=== PATIENT | male | born 1955 | race Caucasian/White ===

== ENCOUNTER 2020-04-16 11:00 | Outpatient (RCR) | payer MEDICARE, SELFPAY ==
--- NOTE | 2020-04-16 11:49 | MHC.PT.DC ---
[facility] [place] [facility] [place] [facility] [place] Office [address] Phyllis Lauren [address] [phone] F: [phone] F: [phone] F: [phone] F: [phone] Physical Therapy Discharge Report Diagnosis: Vertigo Date of Surgery: NA Date of Evaluation: 02/10/20 Date of Discharge: 04/16/20 Treatments to Date: 18 Cancellations to Date: 0 No Shows to Date: 0 Discharge Status: Pt has improved and is independent with all his exercises. He has noted significant improvements in his balance and his ability to perform ADLS. He has not had any loss of balance over the last few weeks. Pt dicharged to home exercise program for balance and strength. Discharge Summary: 04/16/20- Pt came in with no new complaints. He was able to get on and off his bike and ride 6 miles last week. He did not need help to get on the bike but needed help to get off it due to fatigue. He however reports that he is confident with this activity. Pt has improved and is independent with all exercises. He has achieved all goals set for him. Pt discharged from therapy today. All exercises were reviewed with him. Please sign and return to therapist. Thank you for your referral.
== END 2020-04-26 15:21 | disposition other institution (70) ==
LOC: HO.PT 11:00
PROVIDERS: Visit Provider Internal Medicine
DX: R42 Dizziness and giddiness (principal)
CPT/HCPCS: 97110; 97530

== ENCOUNTER 2020-08-16 08:07 | Outpatient (REF) | payer MEDICARE, SELFPAY ==
[2020-08-16 09:30] LABS: Alanine Aminotransferase 37 U/L (0-40); Albumin Level 4.3 g/dL (3.5-5.0); Alkaline Phosphatase 152 U/L (39-117); Aspartate Amino Transferase 25 U/L (5-37); Bilirubin Direct 0.2 mg/dL (0.0-0.5); Bilirubin Total 0.4 mg/dL (0.0-1.0); Cholesterol 116 mg/dL; Glucose Fasting 146 mg/dL (60-99); HDL Cholesterol 31 mg/dL; LDL Cholesterol Calculated 64 mg/dl; Total Protein 6.8 g/dL (6.5-8.0); Triglycerides 108 mg/dL
[2020-08-16 09:42] LABS: Estimated Average Glucose 140 mg/dL; Hemoglobin A1c % 6.5 %
[2020-08-16 10:22] LABS: Reflex LDLD? No
== END 2020-08-16 08:08 | disposition home or self-care (01) ==
LOC: HO.LAB 08:07
PROVIDERS: Visit Provider Internal Medicine
DX: Z00.00 Encounter for general adult medical examination without abnormal findings (principal); E11.9 Type 2 diabetes mellitus without complications
CPT/HCPCS: 36415; 80061; 80076; 82947; 83036

== ENCOUNTER 2020-11-18 10:06 | Outpatient (REF) | payer MEDICARE, SELFPAY ==
[2020-11-18 11:14] LABS: Alanine Aminotransferase 23 U/L (0-40); Albumin Level 4.2 g/dL (3.5-5.0); Alkaline Phosphatase 154 U/L (39-117); Aspartate Amino Transferase 19 U/L (5-37); Bilirubin Direct 0.2 mg/dL (0.0-0.5); Bilirubin Total 0.4 mg/dL (0.0-1.0); Total Protein 6.7 g/dL (6.5-8.0)
== END 2020-11-18 10:07 | disposition home or self-care (01) ==
LOC: HO.LNP 10:06
PROVIDERS: Visit Provider Internal Medicine
DX: R74.8 Abnormal levels of other serum enzymes (principal)
CPT/HCPCS: 80076

== ENCOUNTER 2021-02-14 11:25 | Outpatient (REF) | payer MEDICARE, SELFPAY ==
[2021-02-14 11:43] LABS: MANUAL DIFF FLAG NO
[2021-02-14 11:46] LABS: Basophils Percent Auto 0.4 % (0-2); Eosinophils Absolute Auto 0.2 X10*3/uL (0.0-0.4); Eosinophils Percent Auto 2.2 % (0-4); Hematocrit 38.9 % (42-52); Hemoglobin 12.3 g/dl (14.0-18.0); Imm Gran Abs Auto 0.03 X10*3/uL (0.00-0.03); Imm Gran Pct Auto 0.3 % (0.0-0.4); Lymphocytes Absolute Auto 3.5 X10*3/uL (1.2-4.9); Lymphocytes Percent Auto 36.3 % (20-40); Mean Corpuscular HGB Conc 31.6 g/dl (31.0-36.0); Mean Corpuscular Hemoglobin 29.9 pg (27.0-33.0); Mean Corpuscular Volume 94.6 fL (80-98); Monocytes Absolute Auto 0.6 X10*3/uL (0.1-1.2); Monocytes Percent Auto 5.8 % (2-11); Neutrophils Absolute Auto 5.3 X10*3/uL (2.0-8.3); Platelet Count 237 X10*3/uL (160-400); Red Blood Count 4.11 X10*6/uL (4.60-5.80); Red Cell Distribution Width 13.5 % (11.0-16.0); White Blood Count 9.6 X10*3/uL (4.8-10.8)
[2021-02-14 12:12] LABS: Estimated Average Glucose 146 mg/dL; Hemoglobin A1c % 6.7 %
[2021-02-14 12:42] LABS: Alanine Aminotransferase 23 U/L (0-40); Albumin Level 4.2 g/dL (3.5-5.0); Alkaline Phosphatase 126 U/L (39-117); Anion Gap 16 (12-20); Aspartate Amino Transferase 23 U/L (5-37); Bilirubin Total 0.2 mg/dL (0.0-1.0); Blood Urea Nitrogen 20 mg/dL (9-16); Calcium 9.2 mg/dL (8.4-10.2); Carbon Dioxide 21 mmol/L (22-29); Chloride 110 mmol/L (96-108); Cholesterol 98 mg/dL; Estimated Glomerular Filt Rate 55; Glucose Fasting 133 mg/dL (60-99); HDL Cholesterol 28 mg/dL; LDL Cholesterol Calculated 57 mg/dl; Potassium 5.5 mmol/L (3.3-5.1); Sodium 141 mmol/L (135-145); Total Protein 6.9 g/dL (6.5-8.0); Triglycerides 68 mg/dL
[2021-02-14 12:55] LABS: PSA,Total (Free>4and<10) 0.55 ng/mL (0.00-4.00)
[2021-02-14 13:43] LABS: Reflex LDLD? No
== END 2021-02-14 11:26 | disposition home or self-care (01) ==
LOC: HO.LNP 11:25
PROVIDERS: Visit Provider Internal Medicine
DX: Z00.00 Encounter for general adult medical examination without abnormal findings (principal); Z12.5 Encounter for screening for malignant neoplasm of prostate; E11.9 Type 2 diabetes mellitus without complications; I10 Essential (primary) hypertension
CPT/HCPCS: 80053; 80061; 83036; 84153; 85025

== ENCOUNTER 2021-02-15 13:12 | Outpatient (REF) | payer MEDICARE, SELFPAY ==
[2021-02-15 13:31] LABS: Potassium 4.9 mmol/L (3.3-5.1)
== END 2021-02-15 13:13 | disposition home or self-care (01) ==
LOC: HO.LNP 13:12
PROVIDERS: Visit Provider Internal Medicine
DX: E87.5 Hyperkalemia (principal)
CPT/HCPCS: 84132

== ENCOUNTER 2021-02-21 10:34 | Outpatient (REF) | payer MEDICARE, SELFPAY ==
[2021-02-21 11:03] LABS: Glucose Urine UA NEG (NEG); Leukocyte Esterase Urine 3+ (NEG); Nitrite Urine NEG (NEG); PH 5.5 (5.0-8.0); Specific Gravity - Urine 1.025 (1.005-1.025); Urine Blood NEG (NEG); Urine Ketones NEG (NEG); Urine Protein 1+ MG/DL (NEG-TRACE)
[2021-02-21 11:07] LABS: Appearance Urine HAZY; Color Urine YELLOW
[2021-02-21 11:31] LABS: Creatinine Urine 130.57 mg/dL; Microalbum/Creatinine Ratio Ur 158.5 ug/mg cr
[2021-02-21 11:32] LABS: Bacteria Urine 2+ /LPF; Squamous Epithelial Cell Urine 1+ /LPF; WBC Urine 50-75 /HPF (0-4)
== END 2021-02-21 10:35 | disposition home or self-care (01) ==
LOC: HO.LNP 10:34
PROVIDERS: Visit Provider Internal Medicine
DX: Z00.00 Encounter for general adult medical examination without abnormal findings (principal); E11.9 Type 2 diabetes mellitus without complications
CPT/HCPCS: 81001; 82043

== ENCOUNTER 2021-08-23 10:51 | Outpatient (REF) | payer MEDICARE, SELFPAY ==
[2021-08-23 12:05] LABS: Alanine Aminotransferase 23 U/L (0-40); Alkaline Phosphatase 166 U/L (39-117); Aspartate Amino Transferase 22 U/L (5-37); Bilirubin Direct 0.2 mg/dL (0.0-0.5); Bilirubin Total 0.5 mg/dL (0.0-1.0); Cholesterol 110 mg/dL; HDL Cholesterol 28 mg/dL; LDL Cholesterol Calculated 65 mg/dl; Total Protein 6.9 g/dL (6.5-8.0); Triglycerides 87 mg/dL
[2021-08-23 12:35] LABS: Estimated Average Glucose 166 mg/dL; Hemoglobin A1c % 7.4 %
== END 2021-08-23 10:52 | disposition home or self-care (01) ==
LOC: HO.LNP 10:51
PROVIDERS: PCP Internal Medicine; Visit Provider Internal Medicine
DX: E11.9 Type 2 diabetes mellitus without complications (principal); E78.00 Pure hypercholesterolemia, unspecified
CPT/HCPCS: 80061; 80076; 82043; 83036

== ENCOUNTER 2021-10-21 13:47 | Outpatient (RCR) | payer MEDICARE, SELFPAY | END 2021-12-30 10:43 | disposition home or self-care (01) | LOC: HO.WCC 13:47 | PROVIDERS: PCP Internal Medicine; Visit Provider Physician Assistant | DX: E11.621 Type 2 diabetes mellitus with foot ulcer (principal); L97.524 Non-pressure chronic ulcer of other part of left foot with necrosis of bone; E11.69 Type 2 diabetes mellitus with other specified complication; M86.272 Subacute osteomyelitis, left ankle and foot; E11.40 Type 2 diabetes mellitus with diabetic neuropathy, unspecified; I10 Essential (primary) hypertension; Z79.2 Long term (current) use of antibiotics; Z86.73 Personal history of transient ischemic attack (TIA), and cerebral infarction without residual deficits | CPT/HCPCS: 11042; 11044; 87071; 87073; 87076; 87077; 87185; 87186; 87205; 88304; 88305; 88311; 99212; 99213 ==

== ENCOUNTER 2021-11-02 10:54 | Outpatient (REF) | payer MEDICARE, SELFPAY ==
--- NOTE | ~2021-11-02 | MR_ITS ---
EXAMINATION: MR FOOT WITHOUT AND WITH CONTRAST, LEFT CLINICAL INFORMATION: Known osteo left PIP joint. Evaluate for osteomyelitis 4th metatarsal head. Patient reports diabetic ulcer 4th toe. Patient reports prior surgery with bone removal. COMPARISON: None TECHNIQUE: MRI of the left foot was performed without and with contrast. Contrast dose 10 mL of Gadavist given intravenously. FINDINGS: The exam is limited because of prominent image-degrading motion artifact. Reportedly the patient was in severe pain throughout the exam. Fourth toe: There is deformity with prominent dorsiflexion at the MTP joint and plantar flexion at the PIP joint. There is diffuse abnormal signal with concomitant enhancement involving the middle phalanx and proximal phalanx crossing the PIP joint which is difficult to clearly evaluated given the motion artifact in the aforementioned signal abnormality. There may be erosive changes of the PIP joint making it that much more difficult to evaluate. There is signal abnormality extending dorsally from the joint into the overlying subcutaneous soft tissues compatible with cellulitis and a sinus tract extending to the skin where there appears to be an ulceration measuring up to 5 mm transverse. At the level of the 4th MTP joint, there is a joint effusion and synovitis. There is mild increased T2 signal in the head of the metatarsal with concomitant enhancement. There is bone erosion. Proximal to the neck, the marrow is normal. There is generalized abnormal increased T2 signal with heterogeneous enhancement in the soft tissues surrounding the 4th digit beginning at the level of the metatarsophalangeal joint compatible with edema and cellulitis. Additional Findings: There is mild osteoarthritis of the 1st tarsometatarsal joint manifested by subchondral cystic change. Probable mild arthrosis of the calcaneocuboid joint only partially visualized in the [id number] manifested by subchondral cystic change. Muscles and Tendons: There is mild fatty infiltration throughout the muscles of the visualized foot. There is also mild increased T2 signal with heterogeneous enhancement compatible with myositis. These findings could reflect denervation myositis. There is mild tenosynovitis of the flexor hallucis longus with the tendon otherwise intact. MR/MR foot LT wo/w con IMPRESSION: Fourth Toe: Findings most consistent with osteomyelitis of the middle and proximal phalanges and septic arthritis of the PIP joint. There appears to be a sinus tract extending from the bones or joint to the skin surface where there is likely an ulceration. Findings suspicious but not definitive for early osteomyelitis of the head of the 4th metatarsal, given the associated joint effusion of the metatarsophalangeal joint and mild abnormal signal within the metatarsal head. These bony findings along with the joint effusion also raise the question of early septic arthritis of the metatarsophalangeal joint but is not specific for infection.
[2021-11-02 10:29] LABS: Anion Gap 15 (12-20); Blood Urea Nitrogen 25 mg/dL (9-16); Calcium 9.7 mg/dL (8.4-10.2); Carbon Dioxide 23 mmol/L (22-29); Chloride 105 mmol/L (96-108); Estimated Glomerular Filt Rate 45; Glucose Random 159 mg/dL (60-115); Potassium 5.2 mmol/L (3.3-5.1); Sodium 138 mmol/L (135-145)
== END 2021-11-02 10:55 | disposition home or self-care (01) ==
LOC: HO.MRI 10:54
PROVIDERS: Visit Provider Physician Assistant
DX: E11.621 Type 2 diabetes mellitus with foot ulcer (principal); E11.69 Type 2 diabetes mellitus with other specified complication; L97.509 Non-pressure chronic ulcer of other part of unspecified foot with unspecified severity; M86.9 Osteomyelitis, unspecified
CPT/HCPCS: 36415; 73720; 80048; A9585

== ENCOUNTER 2021-11-25 10:25 | Outpatient (REF) | payer MEDICARE, SELFPAY ==
[2021-11-25 10:37] LABS: Potassium 5.4 mmol/L (3.3-5.1)
== END 2021-11-25 10:26 | disposition home or self-care (01) ==
LOC: HO.LNP 10:25
PROVIDERS: Visit Provider Internal Medicine
DX: E87.5 Hyperkalemia (principal)
CPT/HCPCS: 84132

== ENCOUNTER 2021-12-09 10:38 | Outpatient (REF) | payer MEDICARE, SELFPAY | END 2021-12-09 10:39 | disposition home or self-care (01) | LOC: HO.LNP 10:38 | PROVIDERS: Visit Provider Internal Medicine | DX: E87.5 Hyperkalemia (principal) | CPT/HCPCS: 84132 ==

== ENCOUNTER 2022-02-16 10:50 | Outpatient (REF) | payer MEDICARE, SELFPAY ==
[2022-02-16 10:56] LABS: MANUAL DIFF FLAG NO
[2022-02-16 11:44] LABS: Basophils Percent Auto 0.5 % (0-2); Eosinophils Absolute Auto 0.2 X10*3/uL (0.0-0.4); Eosinophils Percent Auto 2.2 % (0-4); Hematocrit 42.7 % (42.0-52.0); Hemoglobin 13.7 g/dl (14.0-18.0); Imm Gran Abs Auto 0.02 X10*3/uL (0.00-0.03); Imm Gran Pct Auto 0.2 % (0.0-0.4); Lymphocytes Percent Auto 34.9 % (20-40); Mean Corpuscular HGB Conc 32.1 g/dl (31.0-36.0); Mean Corpuscular Hemoglobin 29.1 pg (27.0-33.0); Mean Corpuscular Volume 90.7 fL (80.0-98.0); Mean Platelet Volume 11.9 fL (9.4-12.4); Monocytes Absolute Auto 0.5 X10*3/uL (0.1-1.2); Neutrophils Absolute Auto 4.9 x10*3/uL (2.0-8.3); Neutrophils Percent Auto 56.2 % (45-73); Platelet Count 312 X10*3/uL (160-400); Red Blood Count 4.71 X10*6/uL (4.60-5.80); Red Cell Distribution Width 14.5 % (11.0-16.0); White Blood Count 8.7 X10*3/uL (4.8-10.8)
[2022-02-16 12:03] LABS: Estimated Average Glucose 140 mg/dL; Hemoglobin A1c % 6.5 %
[2022-02-16 12:13] LABS: Alanine Aminotransferase 95 U/L (0-40); Albumin Level 4.3 g/dL (3.5-5.0); Alkaline Phosphatase 380 U/L (39-117); Anion Gap 19 (12-20); Aspartate Amino Transferase 56 U/L (5-37); Bilirubin Total 0.4 mg/dL (0.0-1.0); Blood Urea Nitrogen 30 mg/dL (9-16); Calcium 9.9 mg/dL (8.4-10.2); Carbon Dioxide 20 mmol/L (22-29); Chloride 108 mmol/L (96-108); Cholesterol 125 mg/dL; Estimated Glomerular Filt Rate 44; Glucose Fasting 129 mg/dL (60-99); HDL Cholesterol 30 mg/dL; LDL Cholesterol Calculated 78 mg/dl; Sodium 142 mmol/L (135-145); Total Protein 7.7 g/dL (6.5-8.0); Triglycerides 89 mg/dL
[2022-02-16 12:25] LABS: PSA,Total (Free>4and<10) 0.65 ng/mL (0.00-4.00)
== END 2022-02-16 10:51 | disposition home or self-care (01) ==
LOC: HO.LNP 10:50
PROVIDERS: Visit Provider Internal Medicine
DX: Z00.00 Encounter for general adult medical examination without abnormal findings (principal); Z12.5 Encounter for screening for malignant neoplasm of prostate; E11.9 Type 2 diabetes mellitus without complications; E78.00 Pure hypercholesterolemia, unspecified; I10 Essential (primary) hypertension
CPT/HCPCS: 80053; 80061; 81001; 82043; 83036; 84153; 85025

== ENCOUNTER 2022-02-23 11:34 | Outpatient (REF) | payer MEDICARE, SELFPAY ==
[2022-02-23 12:26] LABS: Appearance Urine Cloudy; Color Urine Yellow; Glucose Urine UA >=1000 mg/dL (Negative); Leukocyte Esterase Urine Moderate (2+) (Negative); Nitrite Urine Negative (Negative); Specific Gravity - Urine 1.015 (1.005-1.025); Urine Blood Negative (Negative); Urine Ketones Negative (Negative); Urine Protein Negative (Neg-Trace)
[2022-02-23 12:36] LABS: Bacteria Urine Trace (None Seen); Creatinine Urine 66.06 mg/dL; Hyaline Casts Urine 0-2 /LPF (0-2); Microalbum/Creatinine Ratio Ur 66.6 ug/mg cr; UACC Culture Trigger YES; WBC Urine >50 /HPF (0-5)
== END 2022-02-23 11:35 | disposition home or self-care (01) ==
LOC: HO.LNP 11:34
PROVIDERS: Visit Provider Internal Medicine
DX: E11.9 Type 2 diabetes mellitus without complications (principal); I10 Essential (primary) hypertension
CPT/HCPCS: 81001; 82043

== ENCOUNTER 2022-02-24 11:03 | Outpatient (REF) | payer MEDICARE, SELFPAY | END 2022-02-24 11:04 | disposition home or self-care (01) | LOC: HO.LNP 11:03 | PROVIDERS: Visit Provider Internal Medicine | DX: Z13.89 Encounter for screening for other disorder (principal) | CPT/HCPCS: 87086 ==

== ENCOUNTER 2022-03-23 11:52 | Outpatient (REF) | payer MEDICARE, SELFPAY ==
[2022-03-23 12:19] LABS: Blood Urea Nitrogen 55 mg/dL (9-16); Estimated Glomerular Filt Rate 18
== END 2022-03-23 11:53 | disposition home or self-care (01) ==
LOC: HO.LNP 11:52
PROVIDERS: Visit Provider Internal Medicine
DX: R79.9 Abnormal finding of blood chemistry, unspecified (principal)
CPT/HCPCS: 82565; 84520

== ENCOUNTER 2022-04-18 07:33 | Outpatient (REF) | payer MEDICARE, SELFPAY ==
--- NOTE | ~2022-04-18 | US_ITS ---
EXAMINATION: US ABDOMEN COMPLETE CLINICAL INFORMATION: Elevated liver enzymes. COMPARISON: None TECHNIQUE: Real-time imaging of the abdominal viscera. Technically limited study secondary to bowel gas and body habitus. FINDINGS: PANCREAS: Not well visualized due to bowel gas. ABDOMINAL AORTA: There is sclerotic disease. The upper abdominal aorta is not well visualized due to bowel gas. The mid and distal abdominal aorta are normal in caliber. INFERIOR VENA CAVA: Not well visualized. LIVER: The liver is normal in size. The liver contour is normal. Liver echotexture is slightly reduced. No focal hepatic lesion. There is no intrahepatic biliary duct dilatation seen. GALLBLADDER: The gallbladder is normal in size. There is slight gallbladder. No gallstones. Normal thickness gallbladder wall. COMMON BILE DUCT: Normal in caliber measuring 0.5 cm in diameter. RIGHT KIDNEY: Fullness of the renal pelvis. No hydronephrosis. No renal calculi or focal parenchymal lesions. The kidney measures 12.0 cm in maximum dimension. LEFT KIDNEY: Normal No hydronephrosis. No renal calculi or focal parenchymal lesions. The kidney measures 11.8 cm in maximum dimension. SPLEEN: Normal. The spleen measures 11.9 cm in maximum dimension. FREE FLUID: None. US/US abdomen complete IMPRESSION: Slightly echogenic liver. Sludge in the gallbladder. No gallstones. No biliary duct dilatation. Pancreas, upper abdominal aorta and IVC not well visualized.
== END 2022-04-18 07:34 | disposition home or self-care (01) ==
LOC: HO.US 07:33
PROVIDERS: Visit Provider Internal Medicine
DX: R74.8 Abnormal levels of other serum enzymes (principal)
CPT/HCPCS: 76700

== ENCOUNTER 2022-05-26 10:47 | Outpatient (REF) | payer MEDICARE, SELFPAY ==
[2022-05-26 11:03] LABS: Blood Urea Nitrogen 30 mg/dL (9-16); Estimated Glomerular Filt Rate 29; Potassium 4.8 mmol/L (3.3-5.1)
== END 2022-05-26 10:48 | disposition home or self-care (01) ==
LOC: HO.LNP 10:47
PROVIDERS: Visit Provider Internal Medicine
DX: E11.42 Type 2 diabetes mellitus with diabetic polyneuropathy (principal); E87.5 Hyperkalemia
CPT/HCPCS: 82565; 84132; 84520

== ENCOUNTER 2022-08-01 10:50 | Outpatient (REF) | payer MEDICARE, SELFPAY ==
[2022-08-01 10:53] LABS: MANUAL DIFF FLAG NO
[2022-08-01 12:03] LABS: Basophils Absolute Auto 0.1 X10*3/uL (0.0-0.2); Basophils Percent Auto 0.5 % (0-2); Eosinophils Absolute Auto 0.2 X10*3/uL (0.0-0.4); Eosinophils Percent Auto 1.6 % (0-4); Hematocrit 26.7 % (42.0-52.0); Hemoglobin 8.4 g/dl (14.0-18.0); Imm Gran Abs Auto 0.05 X10*3/uL (0.00-0.03); Imm Gran Pct Auto 0.5 % (0.0-0.4); Lymphocytes Absolute Auto 1.7 X10*3/uL (1.2-4.9); Lymphocytes Percent Auto 15.4 % (20-40); Mean Corpuscular HGB Conc 31.5 g/dl (31.0-36.0); Mean Corpuscular Volume 95.4 fL (80.0-98.0); Mean Platelet Volume 10.9 fL (9.4-12.4); Monocytes Absolute Auto 0.5 X10*3/uL (0.1-1.2); Monocytes Percent Auto 4.8 % (2-11); Neutrophils Absolute Auto 8.4 x10*3/uL (2.0-8.3); Neutrophils Percent Auto 77.2 % (45-73); Platelet Count 294 X10*3/uL (160-400); Red Cell Distribution Width 13.3 % (11.0-16.0); White Blood Count 10.8 X10*3/uL (4.8-10.8)
[2022-08-01 12:48] LABS: Blood Urea Nitrogen 61 mg/dL (9-16); Estimated Glomerular Filt Rate 24; Iron 54 mcg/dL (45-160); Percent Iron Saturation 26 % (15-50); Potassium 4.5 mmol/L (3.3-5.1); Total Iron Binding Capacity 211 mcg/dL (228-428); Unsaturated Iron Binding 157 ug/dL
== END 2022-08-01 10:51 | disposition home or self-care (01) ==
LOC: HO.LNP 10:50
PROVIDERS: Visit Provider Internal Medicine
DX: E87.5 Hyperkalemia (principal); N18.4 Chronic kidney disease, stage 4 (severe)
CPT/HCPCS: 82565; 83540; 84132; 84520; 85025

== ENCOUNTER 2022-08-03 13:51 | Emergency (ER) | payer MEDICARE, SELFPAY ==
--- NOTE | ~2022-08-03 | XR_ITS ---
EXAMINATION: XR CHEST CLINICAL INFORMATION: Weakness COMPARISON: Chest radiograph from 12/05/2019 TECHNIQUE: 2 views of the chest were obtained. FINDINGS: Bilateral low lung volumes. Small bilateral pleural effusions with subjacent atelectasis. Prominence of the pulmonary vasculature. No pneumothorax. Trachea is midline. Cardiomediastinal silhouette is stable. Aorta demonstrates atherosclerotic calcifications. Degenerative changes of the thoracolumbar spine. Degenerative changes of right glenohumeral joint. Soft tissues are unremarkable. XR/XR chest 2V IMPRESSION: 1. Bilateral low lung volumes. 2. Small bilateral pleural effusions with subjacent atelectasis. 3. Prominence of the pulmonary vasculature.
[2022-08-03 14:05] VITALS: BP 113/74; PULSE 98; RESP 16; TEMP 36.8; O2SAT 97; BMI 27.1
--- NOTE | 2022-08-03 14:07 | ED.WEAKNESS ---
HPI - Weakness General Chief complaint: Weakness <Vivi Rose NP - Last Filed: 08/03/22 14:11> Stated complaint: needs blood transfusion <Vivi Rose NP - Last Filed: 08/03/22 14:11> Time Seen by Provider: 08/03/22 15:22 <Vivi oRse NP - Last Filed: 08/03/22 14:11> Source: patient <Letty Vidal MD - Last Filed: 08/03/22 17:27> Mode of arrival: ambulatory <Letty Vidal MD - Last Filed: 08/03/22 17:27> History of Present Illness HPI Narrative: 67-year-old male who recently had a STEMI on 07/24 in since that time has progressively become weaker with worsening shortness of breath. Patient describes orthopnea with cough. <Letty Vidal MD - Last Filed: 08/03/22 17:27> Related Data Allergies/Adverse reactions: Allergies Allergy/AdvReac Type Severity Reaction Status Date / Time No Known Allergies Allergy Verified 08/03/22 14:03 <Vivi Rose NP - Last Filed: 08/03/22 14:11> Review of Systems Review of Systems: Pertinent positives and negatives as stated in HPI <Letty Vidal MD - Last Filed: 08/03/22 17:27> PMFSH Past Medical History Source: nursing notes reviewed <Letty Vidal MD - Last Filed: 08/03/22 17:27> Social History Social History: Social History Advance Directives: No Advance Directives Date on File: 04/08/20 <Vivi Rose NP - Last Filed: 08/03/22 14:11> Physical Exam Vital Signs: Vital Signs: Last Vital Signs Temp 98.2 F 08/03/22 14:05 Pulse 94 08/03/22 17:18 Resp 18 08/03/22 17:18 BP 105/67 08/03/22 17:18 Pulse Ox 94 08/03/22 17:18 O2 Del Method 08/03/22 17:18 BMI result Body Mass Index 27.8 <Vivi Rose NP - Last Filed: 08/03/22 14:11> Vital Signs: Last Vital Signs Temp 98.2 F 08/03/22 14:05 Pulse 94 08/03/22 17:18 Resp 18 08/03/22 17:18 BP 105/67 08/03/22 17:18 Pulse Ox 94 08/03/22 17:18 O2 Del Method 08/03/22 17:18 BMI result Body Mass Index 27.8 VITAL SIGNS: Reviewed. GENERAL: Well developed, well nourished, in no acute distress. HEAD: Normocephalic/atraumatic EYES: PERRLA, EOMI with pale conjunctiva EARS: Ext canals without abnormality OROPHARYNX: no oral lesions noted, posterior pharynx clear LUNGS: Tachypnea with bibasilar rales SpO2<95> CARDIOVASCULAR: Regular rate and rhythm without noted murmurs, no JVD but bilateral lower extremity swelling is noted with 2+ pitting edema ABDOMEN: Soft, non-tender, non-distended with bowel sounds. MUSCULOSKELETAL: No tenderness, deformities, or effusions noted on gross inspection. EXTREMITIES: No cyanosis, clubbing or edema. SKIN: Inspection of the skin reveals no rashes, pallor+ NEUROLOGIC: Alert and oriented x 4. Strength and sensation to light touch were grossly intact x 4. <Letty Vidal MD - Last Filed: 08/03/22 17:27> Course Course Course Narrative: This is a rapid medical exam. Deferred additional HPI, ROS, PE to primary provider. 67 yo male with history of CAD recent stenting 07/24 at [facility] [place], CHF, CKD here with complaints of feeling dizzy/weak/increased legs swelling bilaterally, [place]AT[place]. ON plavix. Had outpatient labs 08/01 which showed hgb 8.4, hematocrit 26.7. Will repeat labs, EKG, chest x-ray, COVID screen. VSS <Vivi Rose NP - Last Filed: 08/03/22 14:11> Medications Administered Discontinued Medications Generic Name Dose Route Start Last Admin Trade Name Freq PRN Reason Stop Dose Admin Furosemide 40 mg 08/03/22 16:45 08/03/22 17:16 Furosemide 40 Mg/4 Ml Vial IVPUSH 08/03/22 16:46 40 mg ONCE ONE Administration Protocol <Vivi Rose NP - Last Filed: 08/03/22 14:11> Medications Administered Discontinued Medications Generic Name Dose Route Start Last Admin Trade Name Alexander PRN Reason Stop Dose Admin Furosemide 40 mg 08/03/22 16:45 08/03/22 17:16 Furosemide 40 Mg/4 Ml Vial IVPUSH 08/03/22 16:46 40 mg ONCE ONE Administration Protocol <Letty Vidal MD - Last Filed: 08/03/22 17:27> Medical Decision Making Medical Decision Making MDM Narrative: 67-year-old male with extensive cardiac disease and on discussion with Cardiology appears to have residual disease in the RCA and circumflex. Patient having significant shortness of breath but unable to view go at this time and PCP had reported that EF was approximately 10%. Currently patient denies any chest pain. Review of all investigations and my interpretation is that this patient has heart failure/and STEMI after coordinated discussions with consultants patient will be started on heparin and will receive an additional 40 mg of Lasix. Patient was informed of all results and anemia is chronically stable. <Letty Vidal MD - Last Filed: 08/03/22 17:27> Consult Healthcare Provider Management of the patient was discussed with: [employer] <Letty Vidal MD - Last Filed: 08/03/22 17:27> 1647: I discussed this case with cardiology who recommends transfer to [facility] and starting on heparin drip. He recommends against a blood transfusion and agrees with initiation of Lasix. 1705: I discussed the case with [facility] and I a.m. awaiting phone call from cardiology. 1720: I spoke with Dr. Wheeler per min, cardiology, who accepts transfer and is in agreement with the heparin and is recommending increased dose of Lasix. <Letty Vidal MD - Last Filed: 08/03/22 17:27> Lab Data Result Diagrams: 08/03/22 15:00 08/03/22 15:00 <Vivi Rose NP - Last Filed: 08/03/22 14:11> Labs: Lab Results 08/03/22 08/03/22 08/03/22 Range/Units 15:00 15:00 15:00 WBC 10.6 (4.8-10.8) X10*3/uL RBC 2.94 L (4.60-5.80) X10*6/uL Hgb 8.7 L (14.0-18.0) g/dl Hct 27.4 L (42.0-52.0) % MCV 93.2 (80.0-98.0) fL MCH 29.6 (27.0-33.0) pg MCHC 31.8 (31.0-36.0) g/dl RDW 13.6 (11.0-16.0) % Plt Count 260 (160-400) X10*3/uL MPV 11.1 (9.4-12.4) fL Immature Gran % (Auto) 0.5 H (0.0-0.4) % Neut % (Auto) 83.3 H (45-73) % Lymph % (Auto) 10.3 L (20-40) % [place] % (Auto) 4.5 (2-11) % Eos % (Auto) 0.8 (0-4) % Baso % (Auto) 0.6 (0-2) % Lymph # (Auto) 1.1 L (1.2-4.9) X10*3/uL [place] # (Auto) 0.5 (0.1-1.2) X10*3/uL Eos # (Auto) 0.1 (0.0-0.4) X10*3/uL Baso # (Auto) 0.1 (0.0-0.2) X10*3/uL Abs Immat Gran (auto) 0.05 H (0.00-0.03) X10*3/uL Absolute Neuts (auto) 8.8 H (2.0-8.3) x10*3/uL Absolute Nucleated RBC 0.000 (0.0-0.012) X10*3/uL Nucleated RBC % (auto) 0.0 (0.0-0.2) /100WBC Sodium 137 (135-145) mmol/L Potassium 5.4 H (3.3-5.1) mmol/L Chloride 107 (96-108) mmol/L Carbon Dioxide 18 L (22-29) mmol/L Anion Gap 17 (12-20) BUN 65 H (9-16) mg/dL Creatinine 2.79 H (0.5-1.4) mg/dL Estim Creat Clear Calc 27.4 Estimated GFR 23 Random Glucose 187 H (60-115) mg/dL Calcium 9.0 D (8.4-10.2) mg/dL Magnesium 1.6 (1.6-2.6) mg/dL Total Bilirubin 0.4 (0.0-1.0) mg/dL Direct Bilirubin < 0.2 (0.0-0.5) mg/dL AST 25 (5-37) U/L ALT 14 (0-40) U/L Alkaline Phosphatase 146 H (39-117) U/L Troponin I High Sens 2439.2 H* (<3.5-35.0) ng/L B-Natriuretic Peptide (<100) pg/mL Total Protein 6.9 (6.5-8.0) g/dL Albumin 3.5 (3.5-5.0) g/dL COVID-19 (ANGELA) (Negative) COVID-19 Clin Com 08/03/22 08/03/22 Range/Units 15:00 15:00 WBC (4.8-10.8) X10*3/uL RBC (4.60-5.80) X10*6/uL Hgb (14.0-18.0) g/dl Hct (42.0-52.0) % MCV (80.0-98.0) fL MCH (27.0-33.0) pg MCHC (31.0-36.0) g/dl RDW (11.0-16.0) % Plt Count (160-400) X10*3/uL MPV (9.4-12.4) fL Immature Gran % (Auto) (0.0-0.4) % Neut % (Auto) (45-73) % Lymph % (Auto) (20-40) % [place] % (Auto) (2-11) % Eos % (Auto) (0-4) % Baso % (Auto) (0-2) % Lymph # (Auto) (1.2-4.9) X10*3/uL [place] # (Auto) (0.1-1.2) X10*3/uL Eos # (Auto) (0.0-0.4) X10*3/uL Baso # (Auto) (0.0-0.2) X10*3/uL Abs Immat Gran (auto) (0.00-0.03) X10*3/uL Absolute Neuts (auto) (2.0-8.3) x10*3/uL Absolute Nucleated RBC (0.0-0.012) X10*3/uL Nucleated RBC % (auto) (0.0-0.2) /100WBC Sodium (135-145) mmol/L Potassium (3.3-5.1) mmol/L Chloride (96-108) mmol/L Carbon Dioxide (22-29) mmol/L Anion Gap (12-20) BUN (9-16) mg/dL Creatinine (0.5-1.4) mg/dL Estim Creat Clear Calc Estimated GFR Random Glucose (60-115) mg/dL Calcium (8.4-10.2) mg/dL Magnesium (1.6-2.6) mg/dL Total Bilirubin (0.0-1.0) mg/dL Direct Bilirubin (0.0-0.5) mg/dL AST (5-37) U/L ALT (0-40) U/L Alkaline Phosphatase (39-117) U/L Troponin I High Sens (<3.5-35.0) ng/L B-Natriuretic Peptide 1987 H (<100) pg/mL Total Protein (6.5-8.0) g/dL Albumin (3.5-5.0) g/dL COVID-19 (ANGELA) Negative (Negative) COVID-19 Clin Com See Note <Vivi Rose, CIRCULAR KNITTER - Last Filed: 08/03/22 14:11> Lab Results 08/03/22 08/03/22 08/03/22 Range/Units 15:00 15:00 15:00 WBC 10.6 (4.8-10.8) X10*3/uL RBC 2.94 L (4.60-5.80) X10*6/uL Hgb 8.7 L (14.0-18.0) g/dl Hct 27.4 L (42.0-52.0) % MCV 93.2 (80.0-98.0) fL MCH 29.6 (27.0-33.0) pg MCHC 31.8 (31.0-36.0) g/dl RDW 13.6 (11.0-16.0) % Plt Count 260 (160-400) X10*3/uL MPV 11.1 (9.4-12.4) fL Immature Gran % (Auto) 0.5 H (0.0-0.4) % Neut % (Auto) 83.3 H (45-73) % Lymph % (Auto) 10.3 L (20-40) % [place] % (Auto) 4.5 (2-11) % Eos % (Auto) 0.8 (0-4) % Baso % (Auto) 0.6 (0-2) % Lymph # (Auto) 1.1 L (1.2-4.9) X10*3/uL [place] # (Auto) 0.5 (0.1-1.2) X10*3/uL Eos # (Auto) 0.1 (0.0-0.4) X10*3/uL Baso # (Auto) 0.1 (0.0-0.2) X10*3/uL Abs Immat Gran (auto) 0.05 H (0.00-0.03) X10*3/uL Absolute Neuts (auto) 8.8 H (2.0-8.3) x10*3/uL Absolute Nucleated RBC 0.000 (0.0-0.012) X10*3/uL Nucleated RBC % (auto) 0.0 (0.0-0.2) /100WBC Sodium 137 (135-145) mmol/L Potassium 5.4 H (3.3-5.1) mmol/L Chloride 107 (96-108) mmol/L Carbon Dioxide 18 L (22-29) mmol/L Anion Gap 17 (12-20) BUN 65 H (9-16) mg/dL Creatinine 2.79 H (0.5-1.4) mg/dL Estim Creat Clear Calc 27.4 Estimated GFR 23 Random Glucose 187 H (60-115) mg/dL Calcium 9.0 D (8.4-10.2) mg/dL Magnesium 1.6 (1.6-2.6) mg/dL Total Bilirubin 0.4 (0.0-1.0) mg/dL Direct Bilirubin < 0.2 (0.0-0.5) mg/dL AST 25 (5-37) U/L ALT 14 (0-40) U/L Alkaline Phosphatase 146 H (39-117) U/L Troponin I High Sens 2439.2 H* (<3.5-35.0) ng/L B-Natriuretic Peptide (<100) pg/mL Total Protein 6.9 (6.5-8.0) g/dL Albumin 3.5 (3.5-5.0) g/dL COVID-19 (ANGELA) (Negative) COVID-19 Clin Com 08/03/22 08/03/22 Range/Units 15:00 15:00 WBC (4.8-10.8) X10*3/uL RBC (4.60-5.80) X10*6/uL Hgb (14.0-18.0) g/dl Hct (42.0-52.0) % MCV (80.0-98.0) fL MCH (27.0-33.0) pg MCHC (31.0-36.0) g/dl RDW (11.0-16.0) % Plt Count (160-400) X10*3/uL MPV (9.4-12.4) fL Immature Gran % (Auto) (0.0-0.4) % Neut % (Auto) (45-73) % Lymph % (Auto) (20-40) % [place] % (Auto) (2-11) % Eos % (Auto) (0-4) % Baso % (Auto) (0-2) % Lymph # (Auto) (1.2-4.9) X10*3/uL [place] # (Auto) (0.1-1.2) X10*3/uL Eos # (Auto) (0.0-0.4) X10*3/uL Baso # (Auto) (0.0-0.2) X10*3/uL Abs Immat Gran (auto) (0.00-0.03) X10*3/uL Absolute Neuts (auto) (2.0-8.3) x10*3/uL Absolute Nucleated RBC (0.0-0.012) X10*3/uL Nucleated RBC % (auto) (0.0-0.2) /100WBC Sodium (135-145) mmol/L Potassium (3.3-5.1) mmol/L Chloride (96-108) mmol/L Carbon Dioxide (22-29) mmol/L Anion Gap (12-20) BUN (9-16) mg/dL Creatinine (0.5-1.4) mg/dL Estim Creat Clear Calc Estimated GFR Random Glucose (60-115) mg/dL Calcium (8.4-10.2) mg/dL Magnesium (1.6-2.6) mg/dL Total Bilirubin (0.0-1.0) mg/dL Direct Bilirubin (0.0-0.5) mg/dL AST (5-37) U/L ALT (0-40) U/L Alkaline Phosphatase (39-117) U/L Troponin I High Sens (<3.5-35.0) ng/L B-Natriuretic Peptide 1987 H (<100) pg/mL Total Protein (6.5-8.0) g/dL Albumin (3.5-5.0) g/dL COVID-19 (ANGELA) Negative (Negative) COVID-19 Clin Com See Note <Letty Vidal MD - Last Filed: 08/03/22 17:27> Critical Care Time Critical Care Time Critical Care Time: Yes <Letty Vidal MD - Last Filed: 08/03/22 17:27> Total Critical Care Time: 60 <Letty Vidal MD - Last Filed: 08/03/22 17:27> Attestation: I personally attest to this time spent taking care of the patient. <Letty Vidal MD - Last Filed: 08/03/22 17:27> Discharge Plan Discharge Clinical Impression: Heart failure, Non-ST elevation MD (NSTEMI) <Vivi Rose NP - Last Filed: 08/03/22 14:11> Patient Disposition: [facility] <Vivi Rose NP - Last Filed: 08/03/22 14:11> Transfer Details: Higher level of care <Vivi Rose NP - Last Filed: 08/03/22 14:11> Higher level of care <Letty Vidal MD - Last Filed: 08/03/22 17:27>
--- NOTE | 2022-08-03 14:09 | ECG_ITS ---
Test Reason : weakness Blood Pressure : / mmHG Vent. Rate : 096 BPM Atrial Rate : 096 BPM P-R Int : 166 ms QRS Dur : 114 ms QT Int : 364 ms P-R-T Axes : -01 038 166 degrees QTc Int : 459 ms Artifact in tracing Likely sinus rhythm Low voltage QRS Cannot rule out Anterior infarct , age undetermined ST & T wave abnormality, consider lateral ischemia Abnormal ECG When compared with ECG of 05-DEC-2019 17:37, Questionable change in QRS duration Minimal criteria for Anterior infarct are now Present Referred By: Vivi Rose Electronically Signed By:DERRICK TEMPLE
[2022-08-03 14:48] VITALS: BP 111/73; PULSE 94; RESP 13; O2SAT 95
[2022-08-03 15:07] LABS: MANUAL DIFF FLAG NO
[2022-08-03 15:09] LABS: Basophils Absolute Auto 0.1 X10*3/uL (0.0-0.2); Basophils Percent Auto 0.6 % (0-2); Eosinophils Absolute Auto 0.1 X10*3/uL (0.0-0.4); Eosinophils Percent Auto 0.8 % (0-4); Hematocrit 27.4 % (42.0-52.0); Hemoglobin 8.7 g/dl (14.0-18.0); Imm Gran Abs Auto 0.05 X10*3/uL (0.00-0.03); Imm Gran Pct Auto 0.5 % (0.0-0.4); Lymphocytes Absolute Auto 1.1 X10*3/uL (1.2-4.9); Lymphocytes Percent Auto 10.3 % (20-40); Mean Corpuscular HGB Conc 31.8 g/dl (31.0-36.0); Mean Corpuscular Hemoglobin 29.6 pg (27.0-33.0); Mean Corpuscular Volume 93.2 fL (80.0-98.0); Mean Platelet Volume 11.1 fL (9.4-12.4); Monocytes Absolute Auto 0.5 X10*3/uL (0.1-1.2); Monocytes Percent Auto 4.5 % (2-11); Neutrophils Absolute Auto 8.8 x10*3/uL (2.0-8.3); Neutrophils Percent Auto 83.3 % (45-73); Platelet Count 260 X10*3/uL (160-400); Red Blood Count 2.94 X10*6/uL (4.60-5.80); Red Cell Distribution Width 13.6 % (11.0-16.0); White Blood Count 10.6 X10*3/uL (4.8-10.8)
[2022-08-03 15:23] LABS: COVID-19 Test Negative (Negative); IDNOW Serial# BCCEAD1C
[2022-08-03 15:28] LABS: Alanine Aminotransferase 14 U/L (0-40); Albumin Level 3.5 g/dL (3.5-5.0); Alkaline Phosphatase 146 U/L (39-117); Anion Gap 17 (12-20); Aspartate Amino Transferase 25 U/L (5-37); Bilirubin Direct < 0.2 mg/dL (0.0-0.5); Bilirubin Total 0.4 mg/dL (0.0-1.0); Blood Urea Nitrogen 65 mg/dL (9-16); Carbon Dioxide 18 mmol/L (22-29); Chloride 107 mmol/L (96-108); Creatinine Clr Calc Pharmacy 27.4; Estimated Glomerular Filt Rate 23; Glucose Random 187 mg/dL (60-115); Magnesium 1.6 mg/dL (1.6-2.6); Potassium 5.4 mmol/L (3.3-5.1); Sodium 137 mmol/L (135-145); Total Protein 6.9 g/dL (6.5-8.0)
[2022-08-03 15:43] LABS: B Type Natriuretic Peptide 1987 pg/mL (<100)
--- NOTE | 2022-08-03 16:51 | MHC.EDTECH ---
Called [facility] Medical Records at 1651 to get records per Marcy Burns,awaiting a fax.
[2022-08-03 17:15] VITALS: BMI 27.8
[2022-08-03] MEDS: Furosemide 40 MG/4 ML VIAL IVPUSH ×2 (17:16→17:31)
[2022-08-03 17:18] VITALS: BP 105/67; PULSE 94; RESP 18; O2SAT 94
--- NOTE | 2022-08-03 17:22 | MHC.EDTECH ---
[facility] Transfer Line called at 1708 per ,gave patient demographics,speaking with at this time.
--- NOTE | 2022-08-03 17:23 | MHC.EDTECH ---
Recevied a call back from [facility] at 1717,speaking with at this time.
--- NOTE | 2022-08-03 17:29 | MHC.EDTECH ---
At 1725 [facility] accepted awaiting a call back with a room assignment.
[2022-08-03 18:01] LABS: INTERNATIONAL NORM RATIO 1.1 (0.9-1.1); Prothrombin Time 12.5 SEC (10.0-13.1)
[2022-08-03 18:04] LABS: Partial Thromboplastin Time 26.7 SEC (26.0-36.4)
[2022-08-03] MEDS: Heparin Sodium,Porcine/1/2NS 25,000 UNIT/250 ML IV.SOLN 9.31 UNIT IVCONT (18:36)
--- NOTE | 2022-08-03 19:10 | PC.NURSE ---
Took over care of the pt at 1900. Heparin drip running at 10u/kg/hr. Pharmacy called and corrected the rate, as it should be 10mL/hr. Dose was adjusted on the pump and changes were documented.
--- NOTE | 2022-08-03 20:16 | MHC.EDTECH ---
Received a call from [facility] bed placement at 2007 patient is going to M7 Room 116, accepted patient. Rn aware Nurse to Nurse is [phone].
--- NOTE | 2022-08-03 20:17 | MHC.EDTECH ---
Matt called at 2018 for an als transfer,spoke with Belle joyce within 30mins.
[2022-08-03 20:23] VITALS: BP 106/75; PULSE 97; RESP 16; O2SAT 96
--- NOTE | 2022-08-03 20:33 | PC.NURSE ---
Nurse to nurse called, I gave report to June at [facility]
== END 2022-08-03 21:09 | disposition short-term general hospital (02) ==
PROVIDERS: Nurse Practitioner Family; Emergency Provider Student in an Organized Health Care Education/Training Program; PCP Internal Medicine
DX: I21.4 Non-ST elevation (NSTEMI) myocardial infarction (principal); I50.9 Heart failure, unspecified; R06.02 Shortness of breath; Z20.822 Contact with and (suspected) exposure to COVID-19; Z20.828 Contact with and (suspected) exposure to other viral communicable diseases; Z79.899 Other long term (current) drug therapy
CPT/HCPCS: 36415; 71046; 80048; 80076; 83735; 83880; 84484; 85025; 85610; 85730; 86850; 86900; 86901; 87635; 93005; 96365; 96375; 99285; J1643; J1940

== ENCOUNTER 2022-08-15 16:01 | Outpatient (REF) | payer MEDICARE, SELFPAY ==
[2022-08-15 16:08] LABS: MANUAL DIFF FLAG NO
[2022-08-15 16:12] LABS: Basophils Absolute Auto 0.1 X10*3/uL (0.0-0.2); Basophils Percent Auto 0.8 % (0-2); Eosinophils Absolute Auto 0.2 X10*3/uL (0.0-0.4); Eosinophils Percent Auto 3.5 % (0-4); Hematocrit 28.5 % (42.0-52.0); Imm Gran Abs Auto 0.02 X10*3/uL (0.00-0.03); Imm Gran Pct Auto 0.3 % (0.0-0.4); Lymphocytes Absolute Auto 1.4 X10*3/uL (1.2-4.9); Lymphocytes Percent Auto 20.6 % (20-40); Mean Corpuscular HGB Conc 31.6 g/dl (31.0-36.0); Mean Corpuscular Hemoglobin 29.8 pg (27.0-33.0); Mean Corpuscular Volume 94.4 fL (80.0-98.0); Mean Platelet Volume 12.2 fL (9.4-12.4); Monocytes Absolute Auto 0.6 X10*3/uL (0.1-1.2); Monocytes Percent Auto 8.3 % (2-11); Neutrophils Absolute Auto 4.4 x10*3/uL (2.0-8.3); Neutrophils Percent Auto 66.5 % (45-73); Platelet Count 179 X10*3/uL (160-400); Red Blood Count 3.02 X10*6/uL (4.60-5.80); Red Cell Distribution Width 14.1 % (11.0-16.0); White Blood Count 6.7 X10*3/uL (4.8-10.8)
[2022-08-15 16:22] LABS: Anion Gap 19 (12-20); Blood Urea Nitrogen 49 mg/dL (9-16); Carbon Dioxide 22 mmol/L (22-29); Chloride 104 mmol/L (96-108); Iron 54 mcg/dL (45-160); Magnesium 1.5 mg/dL (1.6-2.6); Percent Iron Saturation 23 % (15-50); Potassium 4.7 mmol/L (3.3-5.1); Sodium 140 mmol/L (135-145); Total Iron Binding Capacity 236 mcg/dL (228-428); Unsaturated Iron Binding 182 ug/dL
== END 2022-08-15 16:02 | disposition home or self-care (01) ==
LOC: HO.LNP 16:01
PROVIDERS: Visit Provider Internal Medicine
DX: R79.9 Abnormal finding of blood chemistry, unspecified (principal); E83.42 Hypomagnesemia; D64.9 Anemia, unspecified
CPT/HCPCS: 80051; 83540; 83735; 84520; 85025

== ENCOUNTER 2022-08-25 10:32 | Outpatient (REF) | payer MEDICARE, SELFPAY ==
[2022-08-25 11:13] LABS: Estimated Average Glucose 140 mg/dL; Hemoglobin A1c % 6.5 %
[2022-08-25 11:30] LABS: Alanine Aminotransferase 15 U/L (0-40); Albumin Level 3.8 g/dL (3.5-5.0); Alkaline Phosphatase 150 U/L (39-117); Aspartate Amino Transferase 19 U/L (5-37); Bilirubin Direct < 0.2 mg/dL (0.0-0.5); Bilirubin Total 0.4 mg/dL (0.0-1.0); Cholesterol 104 mg/dL; Glucose Fasting 104 mg/dL (60-99); HDL Cholesterol 28 mg/dL; LDL Cholesterol Calculated 59 mg/dl; Total Protein 6.7 g/dL (6.5-8.0); Triglycerides 88 mg/dL
[2022-08-25 13:51] LABS: Reflex LDLD? No
== END 2022-08-25 10:33 | disposition home or self-care (01) ==
LOC: HO.LNP 10:32
PROVIDERS: Visit Provider Internal Medicine
DX: E11.9 Type 2 diabetes mellitus without complications (principal); E78.00 Pure hypercholesterolemia, unspecified
CPT/HCPCS: 80061; 80076; 82947; 83036

== ENCOUNTER 2022-09-15 11:30 | Outpatient (REF) | payer MEDICARE, SELFPAY ==
[2022-09-15 12:58] LABS: Magnesium 1.9 mg/dL (1.6-2.6)
== END 2022-09-15 11:31 | disposition home or self-care (01) ==
LOC: HO.LNP 11:30
PROVIDERS: Visit Provider Internal Medicine
DX: E83.42 Hypomagnesemia (principal)
CPT/HCPCS: 83735

== ENCOUNTER 2022-10-31 15:28 | Outpatient (REF) | payer MEDICARE, SELFPAY ==
[2022-10-31 16:10] LABS: Alanine Aminotransferase 18 U/L (0-40); Alkaline Phosphatase 180 U/L (39-117); Anion Gap 16 (12-20); Aspartate Amino Transferase 23 U/L (5-37); Bilirubin Total 0.4 mg/dL (0.0-1.0); Blood Urea Nitrogen 63 mg/dL (9-16); Calcium 9.6 mg/dL (8.4-10.2); Carbon Dioxide 25 mmol/L (22-29); Chloride 105 mmol/L (96-108); Cholesterol 88 mg/dL; Estimated Glomerular Filt Rate 21; Glucose Fasting 121 mg/dL (60-99); HDL Cholesterol 24 mg/dL; LDL Cholesterol Calculated 52 mg/dl; Magnesium 1.8 mg/dL (1.6-2.6); Potassium 5.3 mmol/L (3.3-5.1); Sodium 141 mmol/L (135-145); Triglycerides 60 mg/dL
== END 2022-10-31 15:29 | disposition home or self-care (01) ==
LOC: HO.LNP 15:28
PROVIDERS: Visit Provider Internal Medicine
DX: E11.42 Type 2 diabetes mellitus with diabetic polyneuropathy (principal); N18.4 Chronic kidney disease, stage 4 (severe)
CPT/HCPCS: 80053; 80061; 83735

== ENCOUNTER 2023-01-04 13:31 | Outpatient (REF) | payer MEDICARE, SELFPAY ==
[2023-01-04 13:44] LABS: MANUAL DIFF FLAG NO
[2023-01-04 14:01] LABS: Basophils Percent Auto 0.3 % (0-2); Eosinophils Absolute Auto 0.2 X10*3/uL (0.0-0.4); Hematocrit 30.4 % (42.0-52.0); Hemoglobin 9.8 g/dl (14.0-18.0); Imm Gran Abs Auto 0.02 X10*3/uL (0.00-0.03); Imm Gran Pct Auto 0.2 % (0.0-0.4); Lymphocytes Absolute Auto 2.6 X10*3/uL (1.2-4.9); Lymphocytes Percent Auto 28.5 % (20-40); Mean Corpuscular HGB Conc 32.2 g/dl (31.0-36.0); Mean Corpuscular Hemoglobin 29.4 pg (27.0-33.0); Mean Corpuscular Volume 91.3 fL (80.0-98.0); Mean Platelet Volume 12.2 fL (9.4-12.4); Monocytes Absolute Auto 0.7 X10*3/uL (0.1-1.2); Monocytes Percent Auto 7.5 % (2-11); Neutrophils Absolute Auto 5.6 x10*3/uL (2.0-8.3); Neutrophils Percent Auto 61.5 % (45-73); Platelet Count 174 X10*3/uL (160-400); Red Blood Count 3.33 X10*6/uL (4.60-5.80); Red Cell Distribution Width 14.5 % (11.0-16.0)
[2023-01-04 14:34] LABS: Anion Gap 16 (12-20); Blood Urea Nitrogen 76 mg/dL (9-16); Carbon Dioxide 24 mmol/L (22-29); Chloride 105 mmol/L (96-108); Estimated Glomerular Filt Rate 21; Potassium 4.6 mmol/L (3.3-5.1); Sodium 140 mmol/L (135-145)
== END 2023-01-04 13:32 | disposition home or self-care (01) ==
LOC: HO.LNP 13:31
PROVIDERS: Visit Provider Internal Medicine
DX: E11.42 Type 2 diabetes mellitus with diabetic polyneuropathy (principal); R42 Dizziness and giddiness
CPT/HCPCS: 80051; 82565; 84520; 85025

== ENCOUNTER 2023-01-19 13:38 | Outpatient (REF) | payer MEDICARE, SELFPAY ==
[2023-01-19 15:20] LABS: Blood Urea Nitrogen 74 mg/dL (9-16); Estimated Glomerular Filt Rate 22
== END 2023-01-19 13:39 | disposition home or self-care (01) ==
LOC: HO.LNP 13:38
PROVIDERS: Visit Provider Internal Medicine
DX: N18.4 Chronic kidney disease, stage 4 (severe) (principal)
CPT/HCPCS: 82565; 84520

== ENCOUNTER 2023-01-26 10:59 | Outpatient (REF) | payer MEDICARE, SELFPAY ==
[2023-01-26 11:55] LABS: Blood Urea Nitrogen 62 mg/dL (9-16); Estimated Glomerular Filt Rate 24
== END 2023-01-26 11:00 | disposition home or self-care (01) ==
LOC: HO.LNP 10:59
PROVIDERS: Visit Provider Internal Medicine
DX: R79.9 Abnormal finding of blood chemistry, unspecified (principal)
CPT/HCPCS: 82565; 84520

== ENCOUNTER 2023-02-02 11:44 | Outpatient (REF) | payer MEDICARE, SELFPAY ==
[2023-02-02 12:15] LABS: Blood Urea Nitrogen 53 mg/dL (9-16); Estimated Glomerular Filt Rate 25
== END 2023-02-02 11:45 | disposition home or self-care (01) ==
LOC: HO.LNP 11:44
PROVIDERS: Visit Provider Internal Medicine
DX: N18.4 Chronic kidney disease, stage 4 (severe) (principal)
CPT/HCPCS: 82565; 84520

== ENCOUNTER 2023-02-16 10:57 | Outpatient (REF) | payer MEDICARE, SELFPAY ==
[2023-02-16 11:05] LABS: MANUAL DIFF FLAG NO
[2023-02-16 11:10] LABS: Basophils Percent Auto 0.5 % (0-2); Eosinophils Absolute Auto 0.3 X10*3/uL (0.0-0.4); Eosinophils Percent Auto 3.9 % (0-4); Hematocrit 31.1 % (42.0-52.0); Hemoglobin 9.9 g/dl (14.0-18.0); Imm Gran Abs Auto 0.02 X10*3/uL (0.00-0.03); Imm Gran Pct Auto 0.2 % (0.0-0.4); Lymphocytes Absolute Auto 3.3 X10*3/uL (1.2-4.9); Lymphocytes Percent Auto 38.5 % (20-40); Mean Corpuscular HGB Conc 31.8 g/dl (31.0-36.0); Mean Corpuscular Hemoglobin 29.4 pg (27.0-33.0); Mean Corpuscular Volume 92.3 fL (80.0-98.0); Mean Platelet Volume 11.9 fL (9.4-12.4); Monocytes Absolute Auto 0.5 X10*3/uL (0.1-1.2); Monocytes Percent Auto 5.9 % (2-11); Neutrophils Absolute Auto 4.4 x10*3/uL (2.0-8.3); Platelet Count 173 X10*3/uL (160-400); Red Blood Count 3.37 X10*6/uL (4.60-5.80); Red Cell Distribution Width 14.4 % (11.0-16.0); White Blood Count 8.5 X10*3/uL (4.8-10.8)
[2023-02-16 11:11] LABS: Appearance Urine Cloudy; Color Urine Yellow; Glucose Urine UA Negative (Negative); Leukocyte Esterase Urine Large (3+) (Negative); Nitrite Urine Negative (Negative); PH 5.5 (5.0-9.0); UMIC TRIGGER UACC YES; Urine Blood Negative (Negative); Urine Ketones Negative (Negative); Urine Protein Negative (Neg-Trace)
[2023-02-16 11:14] LABS: Bacteria Urine 1+ (None Seen); RBC Urine 0-2 /HPF (0-2); UACC Culture Trigger YES; WBC Urine >50 /HPF (0-5)
[2023-02-16 11:45] LABS: PSA,Total (Free>4and<10) 1.03 ng/mL (0.00-4.00)
[2023-02-16 11:47] LABS: Estimated Average Glucose 126 mg/dL
[2023-02-16 11:50] LABS: Alanine Aminotransferase 24 U/L (0-40); Albumin Level 3.6 g/dL (3.5-5.0); Alkaline Phosphatase 102 U/L (39-117); Anion Gap 15 (12-20); Aspartate Amino Transferase 27 U/L (5-37); Bilirubin Total 0.4 mg/dL (0.0-1.0); Blood Urea Nitrogen 63 mg/dL (9-16); Calcium 9.4 mg/dL (8.4-10.2); Carbon Dioxide 21 mmol/L (22-29); Chloride 111 mmol/L (96-108); Cholesterol 88 mg/dL; Estimated Glomerular Filt Rate 24; Glucose Fasting 92 mg/dL (60-99); HDL Cholesterol 28 mg/dL; LDL Cholesterol Calculated 47 mg/dl; Potassium 5.1 mmol/L (3.3-5.1); Sodium 142 mmol/L (135-145); Total Protein 6.9 g/dL (6.5-8.0); Triglycerides 65 mg/dL
[2023-02-16 12:22] LABS: Creatinine Urine 58.76 mg/dL; Microalbum/Creatinine Ratio Ur 56.1 ug/mg cr
== END 2023-02-16 10:58 | disposition home or self-care (01) ==
LOC: HO.LNP 10:57
PROVIDERS: Visit Provider Internal Medicine
DX: Z00.00 Encounter for general adult medical examination without abnormal findings (principal); E11.9 Type 2 diabetes mellitus without complications; E78.00 Pure hypercholesterolemia, unspecified; I11.0 Hypertensive heart disease with heart failure; I50.20 Unspecified systolic (congestive) heart failure; R82.90 Unspecified abnormal findings in urine; Z12.5 Encounter for screening for malignant neoplasm of prostate
CPT/HCPCS: 80053; 80061; 81001; 82043; 83036; 84153; 85025; 87086

== ENCOUNTER 2023-03-05 08:00 | Outpatient (REF) | payer MEDICARE, SELFPAY ==
[2023-03-05 11:25] LABS: Blood Urea Nitrogen 62 mg/dL (9-16); Estimated Glomerular Filt Rate 23
== END 2023-03-05 08:01 | disposition home or self-care (01) ==
LOC: HO.LNP 08:00
PROVIDERS: Visit Provider Internal Medicine
DX: R79.9 Abnormal finding of blood chemistry, unspecified (principal)
CPT/HCPCS: 82565; 84520

== ENCOUNTER 2023-04-05 10:44 | Outpatient (REF) | payer MEDICARE, SELFPAY ==
[2023-04-05 12:27] LABS: Blood Urea Nitrogen 61 mg/dL (9-16); Estimated Glomerular Filt Rate 23
== END 2023-04-05 10:45 | disposition home or self-care (01) ==
LOC: HO.10HDLNP 10:44
PROVIDERS: Visit Provider Internal Medicine
DX: N18.4 Chronic kidney disease, stage 4 (severe) (principal)
CPT/HCPCS: 82565; 84520

== ENCOUNTER 2023-08-23 07:29 | Outpatient (REF) | payer MEDICARE, SELFPAY ==
[2023-08-23 10:35] LABS: Estimated Average Glucose 123 mg/dL; Hemoglobin A1c % 5.9 % (<6.0)
[2023-08-23 10:39] LABS: Alanine Aminotransferase 18 U/L (0-40); Albumin Level 3.9 g/dL (3.5-5.0); Alkaline Phosphatase 134 U/L (39-117); Aspartate Amino Transferase 23 U/L (5-37); Bilirubin Direct 0.2 mg/dL (0.0-0.5); Bilirubin Total 0.5 mg/dL (0.0-1.0); Cholesterol 101 mg/dL (<200); Glucose Fasting 104 mg/dL (60-99); HDL Cholesterol 32 mg/dL (>40); LDL Cholesterol Calculated 54 mg/dL (<100); Total Protein 7.1 g/dL (6.5-8.0); Triglycerides 78 mg/dL (<150)
[2023-08-23 11:43] LABS: Reflex LDLD? No
== END 2023-08-23 07:30 | disposition home or self-care (01) ==
LOC: HO.10HDL 07:29
PROVIDERS: Visit Provider Internal Medicine
DX: E78.5 Hyperlipidemia, unspecified (principal); E11.42 Type 2 diabetes mellitus with diabetic polyneuropathy
CPT/HCPCS: 36415; 80061; 80076; 82947; 83036

== ENCOUNTER 2023-10-12 11:18 | Outpatient (REF) | payer MEDICARE, SELFPAY ==
[2023-10-12 11:21] LABS: MANUAL DIFF FLAG NO
[2023-10-12 12:02] LABS: Basophils Percent Auto 0.5 % (0-2); Eosinophils Absolute Auto 0.3 X10*3/uL (0.0-0.4); Eosinophils Percent Auto 4.1 % (0-4); Hematocrit 30.4 % (42.0-52.0); Hemoglobin 9.7 g/dl (14.0-18.0); Imm Gran Abs Auto 0.01 X10*3/uL (0.00-0.03); Imm Gran Pct Auto 0.1 % (0.0-0.4); Lymphocytes Absolute Auto 2.6 X10*3/uL (1.2-4.9); Lymphocytes Percent Auto 32.3 % (20-40); Mean Corpuscular HGB Conc 31.9 g/dl (31.0-36.0); Mean Corpuscular Hemoglobin 30.6 pg (27.0-33.0); Mean Corpuscular Volume 95.9 fL (80.0-98.0); Mean Platelet Volume 12.4 fL (9.4-12.4); Monocytes Absolute Auto 0.6 X10*3/uL (0.1-1.2); Monocytes Percent Auto 7.2 % (2-11); Neutrophils Absolute Auto 4.5 x10*3/uL (2.0-8.3); Neutrophils Percent Auto 55.8 % (45-73); Platelet Count 165 X10*3/uL (160-400); Red Blood Count 3.17 X10*6/uL (4.60-5.80); Red Cell Distribution Width 13.2 % (11.0-16.0)
[2023-10-12 12:48] LABS: Iron 54 mcg/dL (45-160); Percent Iron Saturation 25 % (15-50); Total Iron Binding Capacity 219 mcg/dL (228-428); Unsaturated Iron Binding 165 ug/dL
== END 2023-10-12 11:19 | disposition home or self-care (01) ==
LOC: HO.LNP 11:18
PROVIDERS: Visit Provider Internal Medicine
DX: D64.9 Anemia, unspecified (principal)
CPT/HCPCS: 83540; 85025

== ENCOUNTER 2024-02-21 11:16 | Outpatient (REF) | payer MEDICARE, SELFPAY ==
[2024-02-21 11:20] LABS: MANUAL DIFF FLAG NO
[2024-02-21 11:28] LABS: Basophils Percent Auto 0.6 % (0-2); Eosinophils Absolute Auto 0.2 X10*3/uL (0.0-0.4); Eosinophils Percent Auto 3.3 % (0-4); Hemoglobin 8.6 g/dl (14.0-18.0); Imm Gran Abs Auto 0.03 X10*3/uL (0.00-0.03); Imm Gran Pct Auto 0.4 % (0.0-0.4); Lymphocytes Absolute Auto 2.4 X10*3/uL (1.2-4.9); Lymphocytes Percent Auto 33.1 % (20-40); Mean Corpuscular HGB Conc 31.9 g/dl (31.0-36.0); Mean Corpuscular Hemoglobin 29.3 pg (27.0-33.0); Mean Corpuscular Volume 91.8 fL (80.0-98.0); Monocytes Absolute Auto 0.6 X10*3/uL (0.1-1.2); Neutrophils Percent Auto 54.6 % (45-73); Platelet Count 166 X10*3/uL (160-400); Red Blood Count 2.94 X10*6/uL (4.60-5.80); White Blood Count 7.2 X10*3/uL (4.8-10.8)
[2024-02-21 11:40] LABS: Appearance Urine Cloudy; Color Urine Yellow; Glucose Urine UA Negative (Negative); Leukocyte Esterase Urine Large (3+) (Negative); Nitrite Urine Negative (Negative); UMIC TRIGGER UA YES; Urine Blood Negative (Negative); Urine Ketones Negative (Negative); Urine Protein Trace mg/dL (Neg-Trace)
[2024-02-21 11:43] LABS: Estimated Average Glucose 140 mg/dL; Hemoglobin A1c % 6.5 % (<6.0)
[2024-02-21 11:49] LABS: Alanine Aminotransferase 16 U/L (0-40); Albumin Level 3.8 g/dL (3.5-5.0); Alkaline Phosphatase 101 U/L (39-117); Anion Gap 14 (12-20); Aspartate Amino Transferase 19 U/L (5-37); Bilirubin Total 0.4 mg/dL (0.0-1.0); Blood Urea Nitrogen 80 mg/dL (9-16); Calcium 8.6 mg/dL (8.4-10.2); Carbon Dioxide 17 mmol/L (22-29); Chloride 115 mmol/L (96-108); Cholesterol 82 mg/dL (<200); Glucose Fasting 93 mg/dL (60-99); HDL Cholesterol 27 mg/dL (>40); LDL Cholesterol Calculated 38 mg/dL (<100); Potassium 4.6 mmol/L (3.3-5.1); Sodium 141 mmol/L (135-145); Total Protein 6.9 g/dL (6.5-8.0); Triglycerides 87 mg/dL (<150)
[2024-02-21 11:51] LABS: Estimated Glomerular Filt Rate 13
[2024-02-21 12:00] LABS: Bacteria Urine Trace (None Seen); Hyaline Casts Urine 0-2 /LPF (0-2); Other Crystals Urine Present; RBC Urine 0-2 /HPF (0-2); Squamous Epithelial Cell Urine 0-2 /HPF (0-2); WBC Clumps Urine Present; WBC Urine >50 /HPF (0-5)
[2024-02-21 12:08] LABS: PSA,Total (Free>4and<10) 0.81 ng/mL (0.00-4.00)
[2024-02-21 12:15] LABS: Creatinine Urine 50.19 mg/dL; Microalbum/Creatinine Ratio Ur 175.3 ug/mg cr (<30)
== END 2024-02-21 11:17 | disposition home or self-care (01) ==
LOC: HO.LNP 11:16
PROVIDERS: Visit Provider Internal Medicine
DX: Z00.00 Encounter for general adult medical examination without abnormal findings (principal); I13.0 Hypertensive heart and chronic kidney disease with heart failure and stage 1 through stage 4 chronic kidney disease, or unspecified chronic kidney disease; E11.22 Type 2 diabetes mellitus with diabetic chronic kidney disease; E78.00 Pure hypercholesterolemia, unspecified; N18.4 Chronic kidney disease, stage 4 (severe); I50.21 Acute systolic (congestive) heart failure; Z12.5 Encounter for screening for malignant neoplasm of prostate
CPT/HCPCS: 80053; 80061; 81001; 82043; 82570; 83036; 84153; 85025

== ENCOUNTER 2024-02-28 15:12 | Outpatient (REF) | payer MEDICARE, SELFPAY ==
[2024-02-28 15:26] LABS: Appearance Urine Clear; Color Urine Yellow; Glucose Urine UA Negative (Negative); Leukocyte Esterase Urine Moderate (2+) (Negative); Nitrite Urine Negative (Negative); UMIC TRIGGER UACC YES; Urine Blood Negative (Negative); Urine Ketones Negative (Negative); Urine Protein 30 (1+) mg/dL (Neg-Trace)
[2024-02-28 15:29] LABS: Bacteria Urine None Seen (None Seen); Hyaline Casts Urine 0-2 /LPF (0-2); RBC Urine 0-2 /HPF (0-2); UACC Culture Trigger YES; WBC Urine 21-50 /HPF (0-5)
[2024-02-28 17:05] LABS: Alanine Aminotransferase 13 U/L (0-40); Albumin Level 3.7 g/dL (3.5-5.0); Alkaline Phosphatase 137 U/L (39-117); Anion Gap 18 (12-20); Aspartate Amino Transferase 17 U/L (5-37); Bilirubin Total 0.3 mg/dL (0.0-1.0); Blood Urea Nitrogen 98 mg/dL (9-16); Calcium 9.2 mg/dL (8.4-10.2); Carbon Dioxide 14 mmol/L (22-29); Chloride 110 mmol/L (96-108); Estimated Glomerular Filt Rate 6; Glucose Random 140 mg/dL (60-115); Potassium 6.6 mmol/L (3.3-5.1); Sodium 135 mmol/L (135-145); Total Protein 6.8 g/dL (6.5-8.0)
== END 2024-02-28 15:13 | disposition home or self-care (01) ==
LOC: HO.LNP 15:12
PROVIDERS: Visit Provider Internal Medicine
DX: Z13.89 Encounter for screening for other disorder (principal)
CPT/HCPCS: 80053; 81001; 87086

== ENCOUNTER 2024-02-28 17:42 | Inpatient (IN) | payer MEDICARE, SELFPAY ==
--- NOTE | ~2024-02-28 | CT_ITS ---
EXAMINATION: CT ABDOMEN AND PELVIS WITHOUT CONTRAST CLINICAL INFORMATION: Question hydronephrosis. COMPARISON: Abdominal ultrasound 04/18/2022. TECHNIQUE: Multidetector volumetric imaging was performed from the superior aspect of the liver through the pubic symphysis. Sagittal and coronal reformatted images were obtained on the technologist's workstation. This CT examination was performed using dose optimization techniques as appropriate, variously including the following: *Automated exposure control *Adjustment of mA and/or kV according to patient size (this includes techniques or standardized protocols for targeted exams where dose is matched to indication/reason for exam; i.e. extremities or head) *Use of iterative reconstruction technique DLP: 622 mGy-cm FINDINGS: LUNG BASES: Partial visualization of prominent scattered coronary artery calcific atherosclerosis. LIVER, GALLBLADDER, AND BILIARY TREE: Scattered punctate benign-appearing calcifications within the liver which may represent calcified granulomas. The gallbladder is unremarkable with no evidence of radiopaque gallstones, gallbladder wall thickening, or obvious pericholecystic inflammatory changes. PANCREAS: Unremarkable. SPLEEN: Unremarkable. ADRENAL GLANDS: Unremarkable. KIDNEYS AND URETERS: No hydronephrosis identified. No perinephric inflammatory changes. Making allowances for multifocal vascular calcifications, no definitive urolithiasis. BLADDER: Decompressed. Beth catheter terminating within the urinary bladder. GASTROINTESTINAL TRACT: No intestinal dilatation or mural thickening. Normal appearance of the appendix. No free intraperitoneal fluid or gas collections. Normal appearance of the sigmoid colon. Scattered benign-appearing calcified granulomas within the small bowel mesentery. The stomach is collapsed and is without evidence of gross abnormality. ABDOMINAL WALL: Anasarca. LYMPH NODES: Normal. VASCULAR: Diffuse atherosclerotic vascular calcifications. Diffuse Monckeberg type vascular calcifications. PELVIC VISCERA: Unremarkable. 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 CT/CT abdomen pelvis wo IV con IMPRESSION: 1. No acute abnormalities identified. No hydronephrosis. No definitive urolithiasis. Beth catheter terminating within the urinary bladder which is decompressed. 2. Diffuse Monckeberg type vascular calcifications and marked diffuse atherosclerotic calcifications. The Monckeberg type vascular calcifications may be secondary to diabetes mellitus or chronic renal dysfunction. 3. 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 4. Anasarca. Electronically signed by: Ranjit Lugo MD 02/29/2024 12:10 AM EDT RP
--- NOTE | ~2024-02-28 | IR_ITS ---
CLINICAL HISTORY: End-stage renal disease. The patient presents to interventional radiology for placement of a tunneled central venous catheter for hemodialysis. PROCEDURES: 1. Real-time ultrasound-guided access into the right internal jugular vein after documentation of selected vessel patency, and permanent imaging storing in the patient record. 2. Placement of a 14.5 fr 27 cm tunneled, dual-lumen hemodialysis catheter. Clinician: Haseeb Abreu PA-C MEDICATIONS: -Fentanyl 50 mcg, Lidocaine 1% 10 mL SQ. -Antibiotics: Ancef -For additional details, please see nursing flowsheet. COMPLICATIONS: None. ESTIMATED BLOOD LOSS: <5 ml SPECIMENS: None FLUOROSCOPY TIME: 1.4 min PROCEDURE NOTE: The procedure, risks, benefits, and alternatives were carefully explained to patient, and written informed consent was obtained. The patient was placed supine on the fluoroscopy table. A timeout was performed. The right neck and chest was prepped and draped in usual sterile fashion. Local anesthesia was administered to the access site with lidocaine. Under ultrasound guidance, the right internal jugular vein was accessed with a 5 Fr micropuncture set. A 0.035 in wire was advanced to the IVC to maintain access during the tunneling process. Next, subcutaneous lidocaine was administered to the chest. Using blunt dissection, a subcutaneous tunnel was created that connects from the upper chest to the venotomy site. The dialysis catheter was pulled through the tunnel. The tract in the vein was dilated and a peel-away sheath was advanced over the wire. The catheter was advanced through the sheath, which was subsequently peeled away. The catheter was tested, flushed, and sutured to the skin with its tip in the high right atrium. A permanent fluoroscopic image of the chest was saved to PACS. The catheter ports were packed with heparin per routine protocol. The patient was stable after the procedure and was transferred to the medical floor. FINDINGS: 1. Patent right internal jugular vein. 2. Placement of a tunneled, dual-lumen hemodialysis catheter as above. 3. Catheter flushes and aspirates very well with a 10 mL syringe. No pneumothorax. IR/IR cvc insert central tunnel IMPRESSION: Placement of a tunneled hemodialysis catheter in the right internal jugular vein. PLAN: -The catheter may be used immediately. This procedure was performed by Haseeb Abreu PA-C, and directly supervised by Dr. Persaud. Electronically signed by: Randall Persaud MD 03/13/2024 12:31 PM EDT
[2024-02-28 17:49] VITALS: BP 136/93; PULSE 79; RESP 18; TEMP 36.5; O2SAT 100; BMI 25.2
--- NOTE | 2024-02-28 17:51 | ED_ITS ---
HPI - Recheck/Abnormal Lab/Rx General Chief Complaint: Recheck/Abnormal Lab/Rx Stated Complaint: abnormal labs Time Seen by Provider: 02/28/24 18:05 History of Present Illness ED Provider: Dr. Lawson HPI narrative: 68 y/o M patient; PMH CAD, HF, CKD, hx STEMI s/p cardiac stent; presents from home with report of elevated creatinine and potassium on routine repeat labs. Patient states he feels more fatigued the last few weeks. The patient states he follows with a clean energy policy analyst at [facility]. He had pre-physical labs done which showed a high creatinine and potassium. He can't remember the levels. He then was referred to see his clean energy policy analyst who held his diuretic and recommended he have repeat labs. Today he had those repeat labs and the labs called him referring him to the emergency department urgently. The patient denies any other specific complaints at this time. He states he has been urinating normally. He denies: fever or chills, nausea/vomiting, diarrhea, abdominal pain. Related Data Allergies Allergy/AdvReac Type Severity Reaction Status Date / Time No Known Allergies Allergy Verified 02/28/24 17:51 Review of Systems 2 Review of Systems: Yes all other systems are reviewed and are negative Neurologic: Denies Sensory deficit (Neuro) [facility] Past Medical History Attestation statement: The following information was validated with the patient. Source: old records reviewed Social History Social History Advance Directives Date on File: 04/08/20 Physical Exam 2 Vital Signs: Vital Signs: Last Vital Signs Temp 97.2 F 02/28/24 18:00 Pulse 79 02/28/24 18:00 Resp 12 02/28/24 18:00 BP 134/83 02/28/24 18:00 Pulse Ox 100 02/28/24 18:00 O2 Del Method Room Air 02/28/24 18:00 BMI result Body Mass Index 25.2 Patient is afebrile and hemodynamically stable Const: General: cooperative Nutritional Appearance: cachectic O rientation/consciousness: patient oriented x3 HEENT: Head: Yes normal to inspection and Yes atraumatic Eyes: General: appearance normal, both eyes and all related structures P upils: Equal, round and reactive pupils present EOM: EOMs intact bilaterally Neck: Neck: Yes normal visual inspection, Yes full ROM, Yes supple and No tender Chest: Chest palpation & inspection: normal inspection of the chest and normal palpation of entire chest wall Resp: Effort & Inspection: normal respiratory effort, able to speak in complete sentences, no cough and no respiratory distress Auscultation: clear to auscultation bilaterally Cardio: Rate: regular rate Rhythm: regular rhythm GI: Inspection: Yes normal to inspection, No Abdominal wall edema and No distended Palpation (GI): Soft to palpation, not firm, nontender, no guarding and not rigid Auscultation: normal bowel sounds Back/Spine/Pelvis: Back: No back tenderness Neuro: General: patient oriented x3 Cranial nerves: Yes Equal, round and reactive pupils present Motor exam (neuro): 5/5 motor strength present throughout Sensory Exam: No Sensory deficit (Neuro) Course Course Course Narrative: This is a Rapid Medical Examination (RME) performed by Ken Lin PA-C in triage. Full HPI, ROS, assessment and treatment plan per primary provider in the Main ED. 68 yo male hx of 2022, stage 4 CKD, not on dialysis here after receiving lab results of potassium of 6.6 and creatinine of 8.38 (baseline around 2.5). He was called by his clean energy policy analyst today with these results and advised to come to the ED for evaluation. At present his only complaint is feeling generally unwell x2 weeks. Denies chest pain, palpitations. Denies any physical complaints. + patient well-appearing Plan: labs, ekg Reevaluation(s) Reevaluation #1: Patient is afebrile and hemodynamically stable. EKG with evidence of hyperkalemia with peaked T waves in anterolateral leads. Providing Calcium Gluconate, Dextrose/Insulin, and Albuterol. Providing Lokelma 10. Call placed to patient's covering clean energy policy analyst. Cr 2.72 on 03/05/2023, 4.56 on 02/21/2024, and 8.38 on 02/27 prior to arrival in the ED. Nephrology recommend immediate rosario placed, strict I&Os. Bicarb drip ordered. VBG with metabolic acidosis. Multiple nursing attempts at rosario catheter placement. Patient is not circumcised and cannot retract his foreskin. He states he has only had a rosario once before at [facility] and required 4 different individuals to attempt before placement. Urology consulted for assistance with placement. Bladder scan >650cc. Urology called at 1999 - requests CT Abdomen/Pelvis prior to assistance with rosario catheter placement. Successful rosario placement by [facility] with coude. Draining urine. Discussed with patient's clean energy policy analyst at [facility]. Agreeable to patient admission to [facility]. Recommends consulting ICU for placement. ICU consulted - request to see repeat BMP following rosario catheter placement. Hospitalist also informed regarding patient's need for admission. Plan: Admit Condition: Stable Medications Administered Generic Name Dose Route Start Last Admin Trade Name Freq PRN Reason Stop Dose Admin Sodium Bicarbonate 150 meq/ 1,000 mls @ 100 mls/hr 02/28/24 19:30 02/28/24 19:51 Dextrose IV 100 mls/hr .Q10H KALA Administration Discontinued Medications Generic Name Dose Route Start Last Admin Trade Name Freq PRN Reason Stop Dose Admin Calcium Gluconate 1 gm in 50 mls @ 50 mls/hr 02/28/24 18:22 02/28/24 20:12 Calcium Gluconate IV 02/28/24 19:21 Infused ONCE ONE Infusion Insulin Human Regular 5 unit 02/28/24 18:22 02/28/24 19:51 Insulin Regular, Human 100 Unit/Ml 10 Ml Vial IVPUSH 02/28/24 18:23 5 unit ONCE ONE Administration Lidocaine HCl 10 ml 02/28/24 19:58 02/28/24 20:08 Lidocaine Hcl 2 % Urojet 10 Ml Jel.Pf.Aretha TOPICAL 02/28/24 19:59 10 ml ONCE ONE Administration Sodium Zirconium Cyclosilicate 10 gm 02/28/24 18:36 02/28/24 19:06 Sodium Zirconium Cyclosilicate 10 Gm Powd.Pack PO 02/28/24 18:37 10 gm ONCE ONE Administration Medical Decision Making Lab Data 02/28/24 18:21 02/28/24 18:21 Labs: Lab Results 02/28/24 02/28/24 Range/Units 18:21 18:27 WBC 6.6 (4.8-10.8) X10*3/uL RBC 3.16 L (4.60-5.80) X10*6/uL Hgb 9.6 L (14.0-18.0) g/dl Hct 28.7 L (42.0-52.0) % MCV 90.8 (80.0-98.0) fL MCH 30.4 (27.0-33.0) pg MCHC 33.4 (31.0-36.0) g/dl RDW 14.2 (11.0-16.0) % Plt Count 144 L (160-400) X10*3/uL MPV 11.7 (9.4-12.4) fL Immature Gran % (Auto) 0.3 (0.0-0.4) % Neut % (Auto) 53.9 (45-73) % Lymph % (Auto) 31.5 (20-40) % [place] % (Auto) 10.1 (2-11) % Eos % (Auto) 3.9 (0-4) % Baso % (Auto) 0.3 (0-2) % Lymph # (Auto) 2.1 (1.2-4.9) X10*3/uL [place] # (Auto) 0.7 (0.1-1.2) X10*3/uL Eos # (Auto) 0.3 (0.0-0.4) X10*3/uL Baso # (Auto) 0.0 (0.0-0.2) X10*3/uL Abs Immat Gran (auto) 0.02 (0.00-0.03) X10*3/uL Absolute Neuts (auto) 3.6 (2.0-8.3) x10*3/uL Absolute Nucleated RBC 0.000 (0.0-0.012) X10*3/uL Nucleated RBC % (auto) 0.0 (0.0-0.2) /100WBC VBG pH 7.23 L (7.32-7.43) VBG pCO2 33 mmHg VBG pO2 49 mmHg VBG HCO3 14 L (22-26) mmol/L VBG O2 Saturation 72.0 % VBG Base Excess -11.9 mmol/L Sodium 137 (135-145) mmol/L Potassium 6.2 H* (3.3-5.1) mmol/L Chloride 110 H (96-108) mmol/L Carbon Dioxide 14 L (22-29) mmol/L Anion Gap 19 (12-20) BUN 98 H (9-16) mg/dL Creatinine 8.42 H* (0.5-1.4) mg/dL Estim Creat Clear Calc 8.9 Estimated GFR 6 Random Glucose 122 H (60-115) mg/dL Calcium 9.2 (8.4-10.2) mg/dL Magnesium 2.0 (1.6-2.6) mg/dL Total Bilirubin 0.4 (0.0-1.0) mg/dL AST 18 (5-37) U/L ALT 15 (0-40) U/L Alkaline Phosphatase 137 H (39-117) U/L Total Protein 7.3 (6.5-8.0) g/dL Albumin 3.9 (3.5-5.0) g/dL Independent Interpretation I performed an independent interpretation of an: EKG Interpretation: NSR 79BPM with peaked T waves in leads V2 - V4. Critical Care Time Critical Care Time Critical Care Time: Yes Total Critical Care Time: 45 Attestation: Due to a high probability of clinically significant, life threatening deterioration, the patient required my highest level of preparedness to intervene emergently and I personally spent this critical care time directly and personally managing the patient. This critical care time included obtaining a history; examining the patient; ordering and review of studies; arranging urgent treatment with development of a management plan; evaluation of patient's response to treatment; frequent reassessment; and, discussions with other providers (ICU, Nephrology, Urology, Hospitalist). This critical care time was performed to assess and manage the high probability of imminent, life-threatening deterioration that could result in multi-organ failure. It was exclusive of separately billable procedures and treating other patients and teaching time. Discharge Plan Discharge Clinical Impression: CRYSTAL (acute kidney injury), Acute hyperkalemia, Obstructive uropathy Patient Disposition: Admitted As Inpatient Print Language: Maldivian
--- NOTE | 2024-02-28 17:51 | ECG_ITS ---
Test Reason : POTASSIUM HIGH Blood Pressure : / mmHG Vent. Rate : 079 BPM Atrial Rate : 079 BPM P-R Int : 196 ms QRS Dur : 118 ms QT Int : 364 ms P-R-T Axes : -14 028 094 degrees QTc Int : 417 ms Normal sinus rhythm Low voltage QRS Cannot rule out Anterior infarct (cited on or before 03-AUG-2022) Abnormal ECG When compared with ECG of 03-AUG-2022 14:16, Previous ECG has undetermined rhythm, needs review Questionable change in initial forces of Anterior leads Nonspecific T wave abnormality no longer evident in Inferior leads Referred By: Lorene Lin Electronically Signed By:MIKE ASTUDILLO
[2024-02-28 18:00] VITALS: BP 134/83; PULSE 79; RESP 12; TEMP 36.2; O2SAT 100
--- NOTE | 2024-02-28 18:12 | PC.NURSE ---
Pt. is on playground monitor at this time.
--- NOTE | 2024-02-28 18:21 | MHC.EDTECH ---
patient requested food gave her a oscar mitul and a sandwich
--- NOTE | 2024-02-28 18:24 | MHC.EDTECH ---
Brought patient dinner tray set her up open her drinks and cut her meal into pieces
[2024-02-28 18:26] LABS: MANUAL DIFF FLAG NO
[2024-02-28 18:31] LABS: VBG Base Excess -11.9 mmol/L; VBG HCO3 14 mmol/L (22-26); VBG pCO2 33 mmHg; VBG pH 7.23 (7.32-7.43); VBG pO2 49 mmHg
[2024-02-28 18:33] LABS: Venous Blood Gas Refer to POC result
[2024-02-28 18:37] LABS: Basophils Percent Auto 0.3 % (0-2); Eosinophils Absolute Auto 0.3 X10*3/uL (0.0-0.4); Eosinophils Percent Auto 3.9 % (0-4); Hematocrit 28.7 % (42.0-52.0); Hemoglobin 9.6 g/dl (14.0-18.0); Imm Gran Abs Auto 0.02 X10*3/uL (0.00-0.03); Imm Gran Pct Auto 0.3 % (0.0-0.4); Lymphocytes Absolute Auto 2.1 X10*3/uL (1.2-4.9); Lymphocytes Percent Auto 31.5 % (20-40); Mean Corpuscular HGB Conc 33.4 g/dl (31.0-36.0); Mean Corpuscular Hemoglobin 30.4 pg (27.0-33.0); Mean Corpuscular Volume 90.8 fL (80.0-98.0); Mean Platelet Volume 11.7 fL (9.4-12.4); Monocytes Absolute Auto 0.7 X10*3/uL (0.1-1.2); Monocytes Percent Auto 10.1 % (2-11); Neutrophils Absolute Auto 3.6 x10*3/uL (2.0-8.3); Neutrophils Percent Auto 53.9 % (45-73); Platelet Count 144 X10*3/uL (160-400); Red Blood Count 3.16 X10*6/uL (4.60-5.80); Red Cell Distribution Width 14.2 % (11.0-16.0); White Blood Count 6.6 X10*3/uL (4.8-10.8)
[2024-02-28 18:59] LABS: Alanine Aminotransferase 15 U/L (0-40); Albumin Level 3.9 g/dL (3.5-5.0); Alkaline Phosphatase 137 U/L (39-117); Anion Gap 19 (12-20); Aspartate Amino Transferase 18 U/L (5-37); Bilirubin Total 0.4 mg/dL (0.0-1.0); Blood Urea Nitrogen 98 mg/dL (9-16); Calcium 9.2 mg/dL (8.4-10.2); Carbon Dioxide 14 mmol/L (22-29); Chloride 110 mmol/L (96-108); Creatinine Clr Calc Pharmacy 8.9; Estimated Glomerular Filt Rate 6; Glucose Random 122 mg/dL (60-115); Potassium 6.2 mmol/L (3.3-5.1); Sodium 137 mmol/L (135-145); Total Protein 7.3 g/dL (6.5-8.0)
[2024-02-28] MEDS: Calcium Gluconate/NaCl,Iso-Osm 1 GM/50 ML PLAST..BAG IV (19:04)
--- NOTE | 2024-02-28 19:04 | PC.NURSE ---
Awaiting Sofia gtt per pharmacy, will administer IVP insulin at that time.
[2024-02-28] MEDS: Sodium Zirconium Cyclosilicate 10 GM POWD.PACK PO ×2 (19:06→22:55)
[2024-02-28] MEDS: Insulin Regular, Human 100 UNIT/ML 10 ML VIAL IVPUSH (19:51)
[2024-02-28] MEDS: Sodium Bicarbonate 8.4% 150 MEQ in Dextrose 5 % 850 ML 100 MEQ IV (19:51)
[2024-02-28] MEDS: Lidocaine HCl 2 % Urojet 10 ML JEL.PF.APP TOPICAL (20:08)
--- NOTE | 2024-02-28 20:22 | PC.NURSE ---
rosario cath placed by provider, pt tolerated well
--- NOTE | 2024-02-28 22:07 | P.HPHOSP_ITS ---
History of Present Illness Date of Service: 02/28/24 <YOSEPH Rose - Last Filed: 02/28/24 23:20> Attending physician on admission: Elijah Lewis <YOSEPH Rose - Last Filed: 02/28/24 23:20> Chief Complaint: Abnormal labs <YOSEPH Rose - Last Filed: 02/28/24 23:20> Pt is a 68-year-old male with a PMH significant for CAD, STEMI in 2022 s/p stenting, CHF, CVA x2, non-insulin dependent type 2 diabetes, and CKD 3 who presents to the ED from home after routine outpatient labs came back with significantly elevated creatinine and potassium. Patient states that 1 week ago had pre-physical blood tests drawn that came back showing elevated creatinine above baseline. Patient was then scheduled [place] [facility] [place] stopped his metformin and held his torsemide for 5 days and plan to see him again in 2 weeks' time. Patient had his physical today where follow up blood work was drawn. Patient was then called at home later in the afternoon and notified that his potassium and creatinine were significantly elevated and advised him to go to the ED for further evaluation. Patient reports was ?surprised? by lab results. States he has had decreased energy for the past few months, and noticed that his appetite has been reduced especially in the past 2 weeks where he reports a 10 lb weight loss. Reports has been drinking normally. No acute medical complaints during these past 2 months. Also reports has been urinating normally without any incidents anuria, hesitancy, or dribbling. No fever, chills, nausea, vomiting, diarrhea, abdominal pain. Denies chest pain/pressure, palpitations. Shortness of breath at baseline. Of note, patient has Beth catheter placement was very difficult and took multiple nursing attempts before success. >800 mls were drained after placement. In the ED pt was hemodynamically stable with vitals largely WNL. Labs were significant for stable normocytic anemia of 9.6/28.7, potassium of 6.6, bicarb 14, BUN 98, creatinine 8.38, and alk-phos 137. VBG showed metabolic acidosis of pH 7.23 with bicarb of 14. UA positive for proteinuria , moderate leukocyte esterase, and wbc's 21-50 with 6-10 epithelial cells and no bacteria seen. CT of abdomen and pelvis pending. EKG demonstrated normal sinus rhythm without evidence of significant ST elevations or depressions. Pt was treated with calcium gluconate, Lokelma, insulin, and started on a bicarb drip. Pt will be admitted to the hospital for treatment and further evaluation of acute metabolic acidosis in the setting of CRYSTAL requiring bicarb drip. <YOSEPH Rose - Last Filed: 02/28/24 23:20> Review of Systems 2 Review of Systems: Patient has no acute medical complaints at this time, though has had reduced energy and reduced appetite for the past 2-3 months <YOSEPH Rose - Last Filed: 02/28/24 23:20> [facility] Medical History: Medical History (Updated 02/28/24 @ 23:08 by YOSEPH Rose) Non-insulin dependent type 2 diabetes mellitus CKD (chronic kidney disease) stage 3, GFR 30-59 ml/min Heart failure Hyperlipidemia STEMI (ST elevation myocardial infarction) CAD (coronary artery disease) CVA (cerebral vascular accident) <YOSEPH Rose - Last Filed: 02/28/24 23:20> Social History: Social History Patient Tobacco Use Status: Never used Tobacco Smoked in Last 30 Days: No Use of substances other than those prescribed or required for medical reasons: No Advance Directives: Yes Advance Directives Information Provided: No Advance Directives on File: No Advance Directives Date on File: 04/08/20 Nutrition Risks: No Nutritional Risk <YOSEPH Rose - Last Filed: 02/28/24 23:20> Meds Allergies/Adverse reactions: Allergies Allergy/AdvReac Type Severity Reaction Status Date / Time No Known Allergies Allergy Verified 02/28/24 17:51 <YOSEPH Rose - Last Filed: 02/28/24 23:20> Active Medications: Current Medications Acetaminophen (Acetaminophen 325 Mg Tablet) 650 mg PO Q6H PRN PRN Reason: Pain, Mild (Pain Scale 1-3), fever or headache Calcium Carbonate (Calcium Carbonate 750 Mg Tab.Chew) 750 mg PO Q4H PRN PRN Reason: Heartburn Heparin Sodium (Porcine) (Heparin Sodium,Porcine 5,000 Unit/Ml Vial) 5,000 unit SUBCUT Q12H KALA Dextrose (D10) 250 mls @ 750 mls/hr IV Q15M PRN PRN Reason: per Hypoglycemia Standing Ord. Sodium Bicarbonate 150 meq/ (Dextrose) 1,000 mls @ 100 mls/hr IV .Q10H [facility] Last Admin: 02/28/24 19:51 Dose: 100 mls/hr Magnesium Hydroxide (Milk Of Magnesia 30 Ml Oral.Susp) 30 ml PO DAILY PRN PRN Reason: Constipation Melatonin (Melatonin 3 Mg Tablet) 6 mg PO BEDTIME PRN PRN Reason: Insomnia Ondansetron HCl (Ondansetron Hcl 4 Mg/2 Ml Vial) 4 mg IVPUSH Q8H PRN PRN Reason: Nausea and Vomiting Sodium Chloride (0.9 % Sodium Chloride Flush 3 Ml Syringe) 3 ml IVFLUSH QSHIFT [facility] <YOSEPH Rose - Last Filed: 02/28/24 23:20> Home medications: Home Medications ?Medication ?Instructions ?Recorded ?Confirmed ?Last Taken ?Type atorvastatin 80 mg tablet 80 mg PO DAILY 02/28/24 Unknown History clopidogrel 75 mg tablet 75 mg PO DAILY 02/28/24 Unknown History metformin 500 mg tablet 500 mg PO BID 02/28/24 Unknown History metoprolol succinate 200 mg 200 mg PO DAILY 02/28/24 Unknown History tablet,extended release 24 hr tamsulosin 0.4 mg capsule 0.4 mg PO DAILY 02/28/24 Unknown History torsemide 10 mg tablet 10 mg PO DAILY 02/28/24 Unknown History <YOSEPH Rose - Last Filed: 02/28/24 23:20> Physical Exam 2 Vital Signs and Narrative: Vital Signs: Last Vital Signs Temp 97.2 F 02/28/24 18:00 Pulse 79 02/28/24 18:00 Resp 12 02/28/24 18:00 BP 134/83 02/28/24 18:00 Pulse Ox 100 02/28/24 18:00 O2 Del Method Room Air 02/28/24 18:00 BMI result Body Mass Index 25.2 <YOSEPH Rose - Last Filed: 02/28/24 23:20> General: AOx3, no acute distress Resp: CTA bilaterally CVS: S1, S2, RRR GI: +BS, NT, no distention Skin: Warm, dry Neuro: Cranial nerves II-XII grossly intact bilaterally. Motor grossly intact bilaterally : Beth catheter in place with clear urine output Extremities: No edema Psych: Appropriate affect <YOSEPH Rose - Last Filed: 02/28/24 23:20> Results Labs CBC and Chem 7: 02/28/24 18:21 02/28/24 21:54 <YOSEPH Rose - Last Filed: 02/28/24 23:20> Labs: Laboratory Results - last 24 hr 02/28/24 02/28/24 18:21 18:27 MCV 90.8 MCH 30.4 MCHC 33.4 RDW 14.2 Plt Count 144 L MPV 11.7 Immature Gran % (Auto) 0.3 Neut % (Auto) 53.9 Lymph % (Auto) 31.5 [place] % (Auto) 10.1 Eos % (Auto) 3.9 Baso % (Auto) 0.3 Lymph # (Auto) 2.1 [place] # (Auto) 0.7 Eos # (Auto) 0.3 Baso # (Auto) 0.0 Abs Immat Gran (auto) 0.02 Absolute Neuts (auto) 3.6 Absolute Nucleated RBC 0.000 Nucleated RBC % (auto) 0.0 VBG pH 7.23 L VBG pCO2 33 VBG pO2 49 VBG HCO3 14 L VBG O2 Saturation 72.0 VBG Base Excess -11.9 Anion Gap 19 Estim Creat Clear Calc 8.9 Estimated GFR 6 Random Glucose 122 H Calcium 9.2 Magnesium 2.0 Total Bilirubin 0.4 AST 18 ALT 15 Alkaline Phosphatase 137 H Total Protein 7.3 Albumin 3.9 <YOSEPH Rose - Last Filed: 02/28/24 23:20> Assessment and Plan (1) Acute hyperkalemia: Status: Acute <YOSEPH Rose - Last Filed: 02/28/24 23:20> (2) CRYSTAL (acute kidney injury): Status: Acute <YOSEPH Rose - Last Filed: 02/28/24 23:20> Pt is a 68-year-old male with a PMH significant for CAD, STEMI in 2022 s/p stenting, CHF, CVA x2, non-insulin dependent type 2 diabetes, and CKD 3 who presents to the ED from home after routine outpatient labs came back with significantly elevated creatinine and potassium. Pt will be admitted to the hospital for treatment and further evaluation of acute metabolic acidosis in the setting of CRYSTAL requiring bicarb drip. Metabolic acidosis in the setting of CRYSTAL Patient's creatinine 8.38 at time of presentation VBG pH 7.23 with bicarb 14 Likely post renal as Beth catheter placed with >800 mls drained Bicarb drip Nephrology consult Follow BMP Hyperkalemia Pt's calcium 6.6 at time of presentation EKG without changes Pt given Lokelma, calcium gluconate, and insulin in the ED Will give additional Lokelma Follow up potassium Monitor on telemetry CAD Continue statin, metoprolol, clopidogrel Patient notes his sees Dr. Perry and he would like to switch cardiologists Consider cardiology consult to establish care here [place] [facility] [place] [id number] type 2 diabetes Hold metformin Sliding-scale insulin, diabetic diet CHF unspecified Hold torsemide duty CRYSTAL Full Code Attending:?Dr. Lewis DVT Prophylaxis: Heparin Med Rec pending Pt will require a hospitalization of at least two nights for treatment of?metabolic acidosis and hyperkalemia in the setting of CRYSTAL. Given the extent of patient's CRYSTAL and hyperkalemia, he will need monitoring in the hospital to closely follow kidney function and electrolytes, as well as close monitoring of cardiac function. Patient will also need specialist consultation with Nephrology. <YOSEPH Rose - Last Filed: 02/28/24 23:20> Pt is a 68-year-old male with a PMH significant for CAD, STEMI in 2022 s/p stenting, CHF, CVA x2, non-insulin dependent type 2 diabetes, and CKD 3 who presents to the ED from home after routine outpatient labs came back with significantly elevated creatinine and potassium. Pt will be admitted to the hospital for treatment and further evaluation of acute metabolic acidosis in the setting of CRYSTAL requiring bicarb drip. Metabolic acidosis in the setting of CRYSTAL Patient's creatinine 8.38 at time of presentation VBG pH 7.23 with bicarb 14 Likely post renal as Beth catheter placed with >[address] abd/pelvis pending Bicarb drip Nephrology and urology consult Follow BMP Hyperkalemia Pt's calcium 6.6 at time of presentation EKG without changes Pt given Lokelma, calcium gluconate, and insulin in the ED Will give additional Lokelma Follow up potassium Monitor on telemetry CAD Continue statin, metoprolol, clopidogrel Patient notes his sees Dr. Perry and he would like to switch cardiologists Consider cardiology consult to establish care here [place] [facility] [place] [id number] type 2 diabetes Hold metformin Sliding-scale insulin, diabetic diet CHF unspecified Hold torsemide duty CRYSTAL Full Code Attending:?Dr. Lewis DVT Prophylaxis: Heparin Med Rec pending Pt will require a hospitalization of at least two nights for treatment of?metabolic acidosis and hyperkalemia in the setting of CRYSTAL. Given the extent of patient's CRYSTAL and hyperkalemia, he will need monitoring in the hospital to closely follow kidney function and electrolytes, as well as close monitoring of cardiac function. Patient will also need specialist consultation with Nephrology. <Elijah Lewis MD - Last Filed: 02/28/24 23:27> Quality Stroke Does the patient have a stroke diagnosis?: No <YOSEPH Rose - Last Filed: 02/28/24 23:20> VTE Prior VTE?: No <YOSEPH Rose - Last Filed: 02/28/24 23:20> VTE Risk Level:: Medical - moderate - high <YOSEPH Rose - Last Filed: 02/28/24 23:20> VTE Device Contraindication: Treatment Not Indicated <YOSEPH Rose - Last Filed: 02/28/24 23:20> VTE Drug Contraindication: N/A - Med Ordered <YOSEPH Rose - Last Filed: 02/28/24 23:20>
[2024-02-28 22:24] LABS: Anion Gap 17 (12-20); Blood Urea Nitrogen 101 mg/dL (9-16); Calcium 8.8 mg/dL (8.4-10.2); Carbon Dioxide 15 mmol/L (22-29); Chloride 111 mmol/L (96-108); Creatinine Clr Calc Pharmacy 9.4; Estimated Glomerular Filt Rate 7; Glucose Random 139 mg/dL (60-115); Potassium 6.1 mmol/L (3.3-5.1); Sodium 137 mmol/L (135-145)
[2024-02-28] MEDS: Heparin Sodium,Porcine 5,000 UNIT/ML VIAL 5000 UNIT SUBCUT (22:55)
[2024-02-28 23:21] VITALS: BP 126/71; PULSE 81; RESP 14; TEMP 36.8; O2SAT 99
[2024-02-29] VITALS (9 sets, daily range): BP systolic 132–145; BP diastolic 73–97; PULSE 75–92; RESP 12–16; TEMP 36.1–36.9; O2SAT 96–99
--- NOTE | 2024-02-29 01:34 | PC.NURSE ---
pt resting comfortably with eyes closed, breathing even and unlabored, no apparent distress noted at this time. call arboleda w/in reach
[2024-02-29 05:40] LABS: Hematocrit 22.4 % (42.0-52.0); Hemoglobin 7.2 g/dl (14.0-18.0); Mean Corpuscular HGB Conc 32.1 g/dl (31.0-36.0); Mean Corpuscular Hemoglobin 28.9 pg (27.0-33.0); Mean Platelet Volume 11.6 fL (9.4-12.4); Platelet Count 120 X10*3/uL (160-400); Red Blood Count 2.49 X10*6/uL (4.60-5.80); Red Cell Distribution Width 14.3 % (11.0-16.0); White Blood Count 6.7 X10*3/uL (4.8-10.8)
[2024-02-29 05:54] LABS: Anion Gap 17 (12-20); Blood Urea Nitrogen 96 mg/dL (9-16); Calcium 8.4 mg/dL (8.4-10.2); Carbon Dioxide 16 mmol/L (22-29); Chloride 111 mmol/L (96-108); Creatinine Clr Calc Pharmacy 9.7; Estimated Glomerular Filt Rate 7; Glucose Random 124 mg/dL (60-115); Potassium 4.9 mmol/L (3.3-5.1); Sodium 139 mmol/L (135-145)
[2024-02-29] MEDS: Sodium Bicarbonate 8.4% 150 MEQ in Dextrose 5 % 850 ML 100 MEQ IV ×2 (05:58→16:36)
[2024-02-29 07:42] LABS: Glucose, Whole Blood 115 mg/dL (60-115)
--- NOTE | 2024-02-29 07:59 | HO.PM.IMPN ---
Subjective Subjective Date of Service: 02/29/24 Interval History: Seen in follow up for: CRYSTAL, metabolic acidosis Interval history: Feeling well. No n/v. Has rosario in place. Denies melena, hematochezia, acute on chronic anemia Physical Exam Vital Signs: Vital Signs: Last Vital Signs Temp 97.7 F 02/29/24 05:59 Pulse 76 02/29/24 05:59 Resp 12 02/29/24 05:59 BP 138/80 02/29/24 05:59 Pulse Ox 98 02/29/24 05:59 O2 Del Method Room Air 02/29/24 05:59 BMI result Body Mass Index 25.2 Objective Data Active Medications Acetaminophen (Acetaminophen 325 Mg Tablet) 650 mg PO Q6H PRN PRN Reason: Pain, Mild (Pain Scale 1-3), fever or headache Calcium Carbonate (Calcium Carbonate 750 Mg Tab.Chew) 750 mg PO Q4H PRN PRN Reason: Heartburn Glucose (Glucose Gel 15 Gm Gel..Gram.) 15 gm PO Q15M PRN; Protocol PRN Reason: per Hypoglycemia Standing Ord. Heparin Sodium (Porcine) (Heparin Sodium,Porcine 5,000 Unit/Ml Vial) 5,000 unit SUBCUT Q12H PENDING SALE TO [facility] Last Admin: 02/28/24 22:55 Dose: 5,000 unit Documented By: MARKO Dextrose (D10) 250 mls @ 750 mls/hr IV Q15M PRN PRN Reason: per Hypoglycemia Standing Ord. Sodium Bicarbonate 150 meq/ (Dextrose) 1,000 mls @ 100 mls/hr IV .Q10H [facility] TO [facility] Last Admin: 02/29/24 05:58 Dose: 100 mls/hr Documented By: MARKO Dextrose (D10) 250 mls @ 750 mls/hr IV Q15M PRN; Protocol PRN Reason: per Hypoglycemia Standing Ord. Insulin Human Lispro (Insulin Lispro 100 Unit/Ml 3 Ml Vial) 0 unit SUBCUT QIDACHS [facility] TO [facility]; Protocol Last Admin: 02/29/24 07:48 Dose: Not Given Documented By: PEARL Non-Admin Reason: No Insulin Coverage Comments: FSBS within limits per order Magnesium Hydroxide (Milk Of Magnesia 30 Ml Oral.Susp) 30 ml PO DAILY PRN PRN Reason: Constipation Melatonin (Melatonin 3 Mg Tablet) 6 mg PO BEDTIME PRN PRN Reason: Insomnia Ondansetron HCl (Ondansetron Hcl 4 Mg/2 Ml Vial) 4 mg IVPUSH Q8H PRN PRN Reason: Nausea and Vomiting Sodium Chloride (0.9 % Sodium Chloride Flush 3 Ml Syringe) 3 ml IVFLUSH QSHIFT [facility] Last Admin: 02/29/24 07:48 Dose: Not Given Documented By: PEARL Non-Admin Reason: IV Running Labs 02/29/24 05:27 02/29/24 05:27 Labs: Laboratory Results - last 24 hr 02/28/24 02/28/24 02/28/24 18:21 18:27 21:54 MCV 90.8 MCH 30.4 MCHC 33.4 RDW 14.2 Plt Count 144 L MPV 11.7 Immature Gran % (Auto) 0.3 Neut % (Auto) 53.9 Lymph % (Auto) 31.5 Wayne % (Auto) 10.1 Eos % (Auto) 3.9 Baso % (Auto) 0.3 Lymph # (Auto) 2.1 Wayne # (Auto) 0.7 Eos # (Auto) 0.3 Baso # (Auto) 0.0 Abs Immat Gran (auto) 0.02 Absolute Neuts (auto) 3.6 Absolute Nucleated RBC 0.000 Nucleated RBC % (auto) 0.0 VBG pH 7.23 L VBG pCO2 33 VBG pO2 49 VBG HCO3 14 L VBG O2 Saturation 72.0 VBG Base Excess -11.9 Anion Gap 19 17 Estim Creat Clear Calc 8.9 9.4 Estimated GFR 6 7 POC Glucose Random Glucose 122 H 139 H Calcium 9.2 8.8 Magnesium 2.0 Total Bilirubin 0.4 AST 18 ALT 15 Alkaline Phosphatase 137 H Total Protein 7.3 Albumin 3.9 02/29/24 02/29/24 05:27 07:38 MCV 90.0 MCH 28.9 MCHC 32.1 RDW 14.3 Plt Count 120 L MPV 11.6 Immature Gran % (Auto) Neut % (Auto) Lymph % (Auto) Wayne % (Auto) Eos % (Auto) Baso % (Auto) Lymph # (Auto) Wayne # (Auto) Eos # (Auto) Baso # (Auto) Abs Immat Gran (auto) Absolute Neuts (auto) Absolute Nucleated RBC 0.000 Nucleated RBC % (auto) 0.0 VBG pH VBG pCO2 VBG pO2 VBG HCO3 VBG O2 Saturation VBG Base Excess Anion Gap 17 Estim Creat Clear Calc 9.7 Estimated GFR 7 POC Glucose 115 Random Glucose 124 H Calcium 8.4 Magnesium Total Bilirubin AST ALT Alkaline Phosphatase Total Protein Albumin Assessment and Plan (1) CRYSTAL (acute kidney injury): Status: Acute (2) Acute hyperkalemia: Status: Acute (3) Incomplete bladder emptying: Status: Acute Plan 68-year-old male with a PMH significant for CAD, STEMI in 2022 s/p stenting, CHF, CVA x2, non-insulin dependent type 2 diabetes, and CKD 3 who presents to the ED from home after routine outpatient labs came back with significantly elevated creatinine and potassium. Pt will be admitted to the hospital for treatment and further evaluation of acute metabolic acidosis in the setting of CRYSTAL requiring bicarb drip. Metabolic acidosis in the setting of acute kidney injury Creat 8.38--> 7.77 VBG pH 7.23 with bicarb 14, improved to 7.39, bicarb 20 this morning Likely post renal as Rosario catheter placed with >[address] abd/pelvis negative for acute abnormality , hydronephrosis, obstruction. Anasarca noted Continue Bicarb drip Urology consulted for rosario management. Discussed with Dr. Parish. Continue bicarb drip. Plan for permacath placement Sunday. COags ordered. NPO after midnight Sunday 0001. Hold DAPT (on this for PAD, last cardiac cath 2019) continue tamsulosin, rosario Follow renal function/lytes Hyperkalemia Pt's calcium 6.6 at time of presentation--> 4.9 EKG without changes Pt given Lokelma, calcium gluconate, and insulin in the ED Follow lytes Acute on chronic anemia no evidence of overt bleeding, check stool occult blood likely r/t crystal hgb 9.6-->7.2. Repeat h/h now CAD hold dapt as above Patient notes his sees Dr. Perry and he would like to switch cardiologists Outpt follow up with cardiology PAD hold dapt as above [id number] type 2 diabetes Hold metformin Sliding-scale insulin, diabetic diet CHF unspecified Hold torsemide duty CRYSTAL Full Code DVT Prophylaxis: Heparin Requires ongoing inpt stay due to crystal with metabolic acidosis requiring iv bicarb drip, close monitoring of renal function/lytes, expert consultation and possible HD Quality Stroke Does the patient have a stroke diagnosis?: No VTE Prior VTE?: No VTE Risk Level:: Medical - moderate - high VTE Device Contraindication: Treatment Not Indicated VTE Drug Contraindication: N/A - Med Ordered
--- NOTE | 2024-02-29 08:56 | PM.UROCN ---
History of Present Illness Consult details Consult date: 02/29/24 Narrative: 68 y/o male with PMH CAD, HF, CKD, hx STEMI s/p cardiac stent; presented from home with report of elevated creatinine and potassium on routine repeat labs. creat up to 8.42. Pt reported voiding as usual was bladder scanned for >600 mL. Urology called to place rosario due to repeated failed attempts, eventually, rosario was inserted by TRANSITIONAL CARE MANAGER. CTAP- No hydronephrosis of urolithiasis. Review of Systems Review of Systems: Yes all other systems are reviewed and are negative Constitutional: Constitutional: Reports no additional constitutional complaints Eyes: Eyes: Reports no additional eye complaints ENT: Reports system reviewed and no additional complaints, except as documented Cardiovascular: Cardiovascular: Reports no additional cardiovascular complaints Respiratory: Respiratory: Reports no additional respiratory complaints Gastrointestinal: Gastrointestinal: Reports no additional gastrointestinal complaints Genitourinary: Genitourinary: Reports as per HPI Musculoskeletal: Musculoskeletal: Reports no additional musculoskeletal complaints Integumentary/Breasts: Skin/Breast: Reports system reviewed and no additional complaints, except as docu Neurologic: Reports system reviewed and no additional complaints, except as documented Psychiatric: Psychiatric: Reports no additional psychiatric complaints Endocrine: Endocrine: Reports no additional endocrine complaints Hematologic/Lymphatic: Hematologic/Lymphatic: Reports no additional hematologic/lymphatic complaints Allergic/Immunologic: Allergic/Immunologic: Reports no additional allergic/immunologic complaints [facility] Past Medical History Medical History Non-insulin dependent type 2 diabetes mellitus CKD (chronic kidney disease) stage 3, GFR 30-59 ml/min Heart failure Hyperlipidemia STEMI (ST elevation myocardial infarction) CAD (coronary artery disease) CVA (cerebral vascular accident) Social History Social History Patient Tobacco Use Status: Never used Tobacco Smoked in Last 30 Days: No Use of substances other than those prescribed or required for medical reasons: No Advance Directives: Yes Advance Directives on File: Yes Advance Directives Date on File: 02/29/24 Nutrition Risks: No Nutritional Risk Meds Allergies Allergy/AdvReac Type Severity Reaction Status Date / Time No Known Allergies Allergy Verified 02/28/24 17:51 Active Medications: Current Medications Acetaminophen (Acetaminophen 325 Mg Tablet) 650 mg PO Q6H PRN PRN Reason: Pain, Mild (Pain Scale 1-3), fever or headache Calcium Carbonate (Calcium Carbonate 750 Mg Tab.Chew) 750 mg PO Q4H PRN PRN Reason: Heartburn Glucose (Glucose Gel 15 Gm Gel..Gram.) 15 gm PO Q15M PRN; Protocol PRN Reason: per Hypoglycemia Standing Ord. Heparin Sodium (Porcine) (Heparin Sodium,Porcine 5,000 Unit/Ml Vial) 5,000 unit SUBCUT Q12H [facility] Last Admin: 02/28/24 22:55 Dose: 5,000 unit Dextrose (D10) 250 mls @ 750 mls/hr IV Q15M PRN PRN Reason: per Hypoglycemia Standing Ord. Sodium Bicarbonate 150 meq/ (Dextrose) 1,000 mls @ 100 mls/hr IV .Q10H [facility] Last Admin: 02/29/24 05:58 Dose: 100 mls/hr Dextrose (D10) 250 mls @ 750 mls/hr IV Q15M PRN; Protocol PRN Reason: per Hypoglycemia Standing Ord. Insulin Human Lispro (Insulin Lispro 100 Unit/Ml 3 Ml Vial) 0 unit SUBCUT QIDACHS [facility]; Protocol Last Admin: 02/29/24 07:48 Dose: Not Given Magnesium Hydroxide (Milk Of Magnesia 30 Ml Oral.Susp) 30 ml PO DAILY PRN PRN Reason: Constipation Melatonin (Melatonin 3 Mg Tablet) 6 mg PO BEDTIME PRN PRN Reason: Insomnia Ondansetron HCl (Ondansetron Hcl 4 Mg/2 Ml Vial) 4 mg IVPUSH Q8H PRN PRN Reason: Nausea and Vomiting Sodium Chloride (0.9 % Sodium Chloride Flush 3 Ml Syringe) 3 ml IVFLUSH QSHIFT [facility] Last Admin: 02/29/24 07:48 Dose: Not Given Home Medications ?Medication ?Instructions ?Recorded ?Confirmed ?Last Taken ?Type atorvastatin 80 mg tablet 80 mg PO DAILY 02/28/24 02/29/24 02/28/24 History clopidogrel 75 mg tablet 75 mg PO DAILY 02/28/24 02/29/24 02/28/24 History metformin 500 mg tablet 500 mg PO BID 02/28/24 Unknown History metoprolol succinate 200 mg 200 mg PO DAILY 02/28/24 02/29/24 02/28/24 History tablet,extended release 24 hr tamsulosin 0.4 mg capsule 0.4 mg PO DAILY 02/28/24 Unknown History torsemide 10 mg tablet 10 mg PO DAILY 02/28/24 Unknown History aspirin 81 mg tablet,delayed 81 mg PO DAILY 02/29/24 02/29/24 02/28/24 History release Physical Exam Vital Signs: Vital Signs: Last Vital Signs Temp 97.4 F 02/29/24 08:00 Pulse 81 02/29/24 08:00 Resp 12 02/29/24 08:00 BP 133/75 02/29/24 08:00 Pulse Ox 98 02/29/24 08:00 O2 Del Method Room Air 02/29/24 08:00 BMI result Body Mass Index 25.2 Const: General: no acute distress Orientation/consciousness: patient oriented x3 HEENT: Head: Yes normocephalic and Yes atraumatic Eyes: Conjunctivae: conjunctivae normal Neck: Neck: Yes normal visual inspection Chest: Chest palpation & inspection: normal inspection of the chest Resp: Effort & Inspection: normal respiratory effort Cardio: Rate: regular rate GI: Inspection: Yes normal to inspection Palpation (GI): Soft to palpation : Penis: uncircumcised (phimosis) Neuro: General: patient oriented x3 Psych: Appearance: grossly normal Affect: normal affect Results Labs 02/29/24 05:27 02/29/24 05:27 Labs: Abnormal lab results 02/28/24 02/28/24 02/28/24 Range/Units 18:21 18:27 21:54 RBC 3.16 L (4.60-5.80) X10*6/uL Hgb 9.6 L (14.0-18.0) g/dl Hct 28.7 L (42.0-52.0) % Plt Count 144 L (160-400) X10*3/uL VBG pH 7.23 L (7.32-7.43) VBG HCO3 14 L (22-26) mmol/L Potassium 6.2 H* 6.1 H* (3.3-5.1) mmol/L Chloride 110 H 111 H (96-108) mmol/L Carbon Dioxide 14 L 15 L (22-29) mmol/L BUN 98 H 101 H (9-16) mg/dL Creatinine 8.42 H* 7.96 H* (0.5-1.4) mg/dL Random Glucose 122 H 139 H (60-115) mg/dL Alkaline Phosphatase 137 H (39-117) U/L 02/29/24 Range/Units 05:27 RBC 2.49 L D (4.60-5.80) X10*6/uL Hgb 7.2 L D (14.0-18.0) g/dl Hct 22.4 L D (42.0-52.0) % Plt Count 120 L (160-400) X10*3/uL VBG pH (7.32-7.43) VBG HCO3 (22-26) mmol/L Potassium (3.3-5.1) mmol/L Chloride 111 H (96-108) mmol/L Carbon Dioxide 16 L (22-29) mmol/L BUN 96 H (9-16) mg/dL Creatinine 7.77 H* (0.5-1.4) mg/dL Random Glucose 124 H (60-115) mg/dL Alkaline Phosphatase (39-117) U/L Short CBC 02/28/24 02/29/24 Range/Units 18:21 05:27 WBC 6.6 6.7 (4.8-10.8) X10*3/uL Hgb 9.6 L 7.2 L D (14.0-18.0) g/dl Hct 28.7 L 22.4 L D (42.0-52.0) % Plt Count 144 L 120 L (160-400) X10*3/uL BMP 02/28/24 02/28/24 02/29/24 18:21 21:54 05:27 Sodium 137 137 139 Potassium 6.2 H* 6.1 H* 4.9 Chloride 110 H 111 H 111 H Carbon Dioxide 14 L 15 L 16 L BUN 98 H 101 H 96 H Creatinine 8.42 H* 7.96 H* 7.77 H* Calcium 9.2 8.8 8.4 Liver Function 02/28/24 Range/Units 18:21 Total Bilirubin 0.4 (0.0-1.0) mg/dL AST 18 (5-37) U/L ALT 15 (0-40) U/L Alkaline Phosphatase 137 H (39-117) U/L Albumin 3.9 (3.5-5.0) g/dL All other labs normal. Assessment and Plan (1) Incomplete bladder emptying: Status: Acute (2) CRYSTAL (acute kidney injury): Status: Acute (3) CKD (chronic kidney disease): Status: Acute Plan Continue rosario Cont tamsulosin Procedures Date of Service Date of Service: 02/29/24
[2024-02-29 09:13] LABS: VBG Base Excess -3.5 mmol/L; VBG HCO3 20 mmol/L (22-26); VBG pCO2 33 mmHg; VBG pH 7.39 (7.32-7.43); VBG pO2 31 mmHg
[2024-02-29 09:13] LABS: Venous Blood Gas Refer to POC result
--- NOTE | 2024-02-29 09:30 | PHA.MEDREC ---
Pharmacy Consult ? Medication Reconciliation Pharmacy has completed the medication reconciliation. Spoke to patient and confirmed medication list. Patient said his metformin and torsemide were discontinued last 02/21/2024 by his kidney doctor. He also told me to call his to check the medication list on the medicine box. I called and she was able to read off the medication list to re-confirm his meds.
[2024-02-29] MEDS: Heparin Sodium,Porcine 5,000 UNIT/ML VIAL 5000 UNIT SUBCUT ×2 (11:01→21:51)
[2024-02-29 12:07] LABS: Glucose, Whole Blood 146 mg/dL (60-115)
--- NOTE | 2024-02-29 12:24 | MHC.CM.PN ---
CM met with Patient at bedside, in the ED and addressed IMM with him, providing Patient with the original and a copy will be placed on the chart. Patient lives in a house with his /HCP/Gege and adult Daughter and he has a walker to assist with mobility. Home/self care is the goal and CM has initiated and will follow for dc planning. PCP is Dr. Hilton Pepe.
[2024-02-29 14:42] LABS: Hematocrit 26.2 % (42.0-52.0); Hemoglobin 8.5 g/dl (14.0-18.0)
[2024-02-29 14:42] LABS: Prothrombin Time 12.2 SEC (11.1-13.3)
[2024-02-29] MEDS: Metoprolol Succinate ER 100 MG TAB.ER.24H 200 MG PO (14:42)
[2024-02-29 14:44] LABS: Partial Thromboplastin Time 28.8 SEC (26.0-36.8)
--- NOTE | 2024-02-29 15:49 | PC.NURSE ---
called pharmacy to verify bicarb, per pharmacy, they will make the bag and deliver it to the ED
--- NOTE | 2024-02-29 16:57 | P.CNUR_ITS ---
History of Present Illness Consult details Consult date: 02/29/24 Narrative: CC: Urinary retention with elevated creatinine 68-year-old male - CAD, type 2 diabetic with baseline CKD 3 and creatinine 2.7 Sent from physician Lab work indicated elevated creatinine Was seen by Nephrology last week metformin and terazosin made stopped. Was surprised by lab results. States decreased energy the past few months. No reported fever, chills, nausea Found to have retention. Catheter placed with approximately 800 cc drainage UA positive for leukocyte esterase CT scan - Beth catheter in place no evidence of hydronephrosis Would leave Beth catheter until creatinine returned to baseline Review of Systems 2 Constitutional: Constitutional: Reports as per HPI and Reports no additional constitutional complaints Cardiovascular: Cardiovascular: Reports as per HPI and Reports no additional cardiovascular complaints Respiratory: Respiratory: Reports as per HPI and Reports no additional respiratory complaints Gastrointestinal: Gastrointestinal: Reports as per HPI and Reports no additional gastrointestinal complaints Genitourinary: Genitourinary: Reports as per HPI Musculoskeletal: Musculoskeletal: Reports no additional musculoskeletal complaints and Reports as per HPI Neurologic: Reports system reviewed and no additional complaints, except as documented and Reports as per HPI [facility] Past Medical History Medical History Non-insulin dependent type 2 diabetes mellitus CKD (chronic kidney disease) stage 3, GFR 30-59 ml/min Heart failure Hyperlipidemia STEMI (ST elevation myocardial infarction) CAD (coronary artery disease) CVA (cerebral vascular accident) Social History Social History Patient Tobacco Use Status: Never used Tobacco Smoked in Last 30 Days: No Use of substances other than those prescribed or required for medical reasons: No Advance Directives: Yes Advance Directives on File: Yes Advance Directives Date on File: 02/29/24 Nutrition Risks: No Nutritional Risk service: No Meds Allergies Allergy/AdvReac Type Severity Reaction Status Date / Time No Known Allergies Allergy Verified 02/28/24 17:51 Active Medications: Current Medications Acetaminophen (Acetaminophen 325 Mg Tablet) 650 mg PO Q6H PRN PRN Reason: Pain, Mild (Pain Scale 1-3), fever or headache Atorvastatin Calcium (Atorvastatin Calcium 80 Mg Tablet) 80 mg PO DAILY [facility] Calcium Carbonate (Calcium Carbonate 750 Mg Tab.Chew) 750 mg PO Q4H PRN PRN Reason: Heartburn Glucose (Glucose Gel 15 Gm Gel..Gram.) 15 gm PO Q15M PRN; Protocol PRN Reason: per Hypoglycemia Standing Ord. Heparin Sodium (Porcine) (Heparin Sodium,Porcine 5,000 Unit/Ml Vial) 5,000 unit SUBCUT Q12H [facility] Last Admin: 02/29/24 11:01 Dose: 5,000 unit Dextrose (D10) 250 mls @ 750 mls/hr IV Q15M PRN PRN Reason: per Hypoglycemia Standing Ord. Sodium Bicarbonate 150 meq/ (Dextrose) 1,000 mls @ 100 mls/hr IV .Q10H [facility] Last Admin: 02/29/24 16:36 Dose: 100 mls/hr Dextrose (D10) 250 mls @ 750 mls/hr IV Q15M PRN; Protocol PRN Reason: per Hypoglycemia Standing Ord. Insulin Human Lispro (Insulin Lispro 100 Unit/Ml 3 Ml Vial) 0 unit SUBCUT QIDACHS [facility]; Protocol Last Admin: 02/29/24 12:05 Dose: Not Given Magnesium Hydroxide (Milk Of Magnesia 30 Ml Oral.Susp) 30 ml PO DAILY PRN PRN Reason: Constipation Melatonin (Melatonin 3 Mg Tablet) 6 mg PO BEDTIME PRN PRN Reason: Insomnia Metoprolol Succinate (Metoprolol Succinate Er 100 Mg Tab.Er.24h) 200 mg PO DAILY [facility]; Protocol Last Admin: 02/29/24 14:42 Dose: 200 mg Ondansetron HCl (Ondansetron Hcl 4 Mg/2 Ml Vial) 4 mg IVPUSH Q8H PRN PRN Reason: Nausea and Vomiting Sodium Chloride (0.9 % Sodium Chloride Flush 3 Ml Syringe) 3 ml IVFLUSH QSHIFT [facility] Last Admin: 02/29/24 16:05 Dose: Not Given Tamsulosin HCl (Tamsulosin Hcl 0.4 Mg Capsule) 0.4 mg PO DAILY [facility] Home Medications ?Medication ?Instructions ?Recorded ?Confirmed ?Last Taken ?Type atorvastatin 80 mg tablet 80 mg PO DAILY 02/28/24 02/29/24 02/28/24 History clopidogrel 75 mg tablet 75 mg PO DAILY 02/28/24 02/29/24 02/28/24 History metoprolol succinate 200 mg 200 mg PO DAILY 02/28/24 02/29/24 02/28/24 History tablet,extended release 24 hr tamsulosin 0.4 mg capsule 0.4 mg PO DAILY 02/28/24 02/29/24 02/28/24 History aspirin 81 mg tablet,delayed 81 mg PO DAILY 02/29/24 02/29/24 02/28/24 History release Physical Exam 2 Vital Signs: Vital Signs: Last Vital Signs Temp 98.4 F 02/29/24 14:18 Pulse 77 02/29/24 16:17 Resp 15 02/29/24 16:17 BP 134/73 02/29/24 16:17 Pulse Ox 97 02/29/24 16:17 O2 Del Method Room Air 02/29/24 16:17 BMI result Body Mass Index 25.2 Const: General: cooperative, healthy appearing, comfortable and no acute distress Orientation/consciousness: patient oriented x3 HEENT: Face and sinus: Yes normal facial exam Mouth: moist mucous membranes Neck: Neck: Yes normal visual inspection, Yes full ROM and Yes trachea midline Chest: Chest palpation & inspection: normal inspection of the chest Resp: Effort & Inspection: normal respiratory effort, able to speak in complete sentences and no respiratory distress GI: Inspection: Yes normal to inspection Back/Spine/Pelvis: Cervical Spine: normal cervical lordosis Thoracic/Lumbar Spine: thoracic and lumbar spine normal to inspection Skin: General skin exam: no rashes or lesions noted Neuro: General: patient oriented x3, tone normal and moves all extremities Extrem: General: Yes normal to inspection and Yes capillary refill normal Results Labs 02/29/24 14:15 02/29/24 05:27 Labs: Abnormal lab results 02/28/24 02/28/24 02/28/24 Range/Units 18:21 18:27 21:54 RBC 3.16 L (4.60-5.80) X10*6/uL Hgb 9.6 L (14.0-18.0) g/dl Hct 28.7 L (42.0-52.0) % Plt Count 144 L (160-400) X10*3/uL VBG pH 7.23 L (7.32-7.43) VBG HCO3 14 L (22-26) mmol/L Potassium 6.2 H* 6.1 H* (3.3-5.1) mmol/L Chloride 110 H 111 H (96-108) mmol/L Carbon Dioxide 14 L 15 L (22-29) mmol/L BUN 98 H 101 H (9-16) mg/dL Creatinine 8.42 H* 7.96 H* (0.5-1.4) mg/dL POC Glucose (60-115) mg/dL Random Glucose 122 H 139 H (60-115) mg/dL Alkaline Phosphatase 137 H (39-117) U/L 02/29/24 02/29/24 02/29/24 Range/Units 05:27 09:08 12:00 RBC 2.49 L D (4.60-5.80) X10*6/uL Hgb 7.2 L D (14.0-18.0) g/dl Hct 22.4 L D (42.0-52.0) % Plt Count 120 L (160-400) X10*3/uL VBG pH (7.32-7.43) VBG HCO3 20 L (22-26) mmol/L Potassium (3.3-5.1) mmol/L Chloride 111 H (96-108) mmol/L Carbon Dioxide 16 L (22-29) mmol/L BUN 96 H (9-16) mg/dL Creatinine 7.77 H* (0.5-1.4) mg/dL POC Glucose 146 H (60-115) mg/dL Random Glucose 124 H (60-115) mg/dL Alkaline Phosphatase (39-117) U/L 02/29/24 Range/Units 14:15 RBC (4.60-5.80) X10*6/uL Hgb 8.5 L (14.0-18.0) g/dl Hct 26.2 L (42.0-52.0) % Plt Count (160-400) X10*3/uL VBG pH (7.32-7.43) VBG HCO3 (22-26) mmol/L Potassium (3.3-5.1) mmol/L Chloride (96-108) mmol/L Carbon Dioxide (22-29) mmol/L BUN (9-16) mg/dL Creatinine (0.5-1.4) mg/dL POC Glucose (60-115) mg/dL Random Glucose (60-115) mg/dL Alkaline Phosphatase (39-117) U/L Short CBC 02/28/24 02/29/24 02/29/24 Range/Units 18:21 05:27 14:15 WBC 6.6 6.7 (4.8-10.8) X10*3/uL Hgb 9.6 L 7.2 L D 8.5 L (14.0-18.0) g/dl Hct 28.7 L 22.4 L D 26.2 L (42.0-52.0) % Plt Count 144 L 120 L (160-400) X10*3/uL BMP 02/28/24 02/28/24 02/29/24 18:21 21:54 05:27 Sodium 137 137 139 Potassium 6.2 H* 6.1 H* 4.9 Chloride 110 H 111 H 111 H Carbon Dioxide 14 L 15 L 16 L BUN 98 H 101 H 96 H Creatinine 8.42 H* 7.96 H* 7.77 H* Calcium 9.2 8.8 8.4 Liver Function 02/28/24 Range/Units 18:21 Total Bilirubin 0.4 (0.0-1.0) mg/dL AST 18 (5-37) U/L ALT 15 (0-40) U/L Alkaline Phosphatase 137 H (39-117) U/L Albumin 3.9 (3.5-5.0) g/dL All other labs normal. Assessment and Plan (1) Obstructive uropathy: Status: Acute Plan Beth catheter for 4 weeks Voiding trial in office Optimize bladder emptying Procedures Date of Service Date of Service: 02/29/24
[2024-02-29 18:20] LABS: Glucose, Whole Blood 187 mg/dL (60-115)
[2024-02-29] MEDS: Insulin Lispro 100 UNIT/ML 3 ML VIAL SUBCUT (19:19)
--- NOTE | 2024-02-29 20:58 | MHC.EDTECH ---
Pt needed to have BM. This tech assisted Pt to commode. When done, Pt was cleaned and was able to get himself back into bed. Linen change done at this time as well. 400ml of urine emptied from rosario bag, documented. Call arboleda within reach.
[2024-02-29 21:52] LABS: Glucose, Whole Blood 115 mg/dL (60-115)
[2024-03-01] VITALS (7 sets, daily range): BP systolic 134–157; BP diastolic 71–78; PULSE 70–75; RESP 18–20; TEMP 36.1–36.4; O2SAT 98–99; BMI 25.3
[2024-03-01] MEDS: Sodium Bicarbonate 8.4% 150 MEQ in Dextrose 5 % 850 ML 100 MEQ IV ×2 (03:34→15:44)
[2024-03-01 06:25] LABS: MANUAL DIFF FLAG NO
[2024-03-01 06:29] LABS: Basophils Percent Auto 0.3 % (0-2); Eosinophils Absolute Auto 0.2 X10*3/uL (0.0-0.4); Eosinophils Percent Auto 3.2 % (0-4); Hematocrit 22.1 % (42.0-52.0); Hemoglobin 7.3 g/dl (14.0-18.0); Imm Gran Abs Auto 0.01 X10*3/uL (0.00-0.03); Imm Gran Pct Auto 0.2 % (0.0-0.4); Lymphocytes Absolute Auto 2.1 X10*3/uL (1.2-4.9); Lymphocytes Percent Auto 31.7 % (20-40); Mean Corpuscular Hemoglobin 29.3 pg (27.0-33.0); Mean Corpuscular Volume 88.8 fL (80.0-98.0); Mean Platelet Volume 11.9 fL (9.4-12.4); Monocytes Absolute Auto 0.7 X10*3/uL (0.1-1.2); Monocytes Percent Auto 10.3 % (2-11); Neutrophils Absolute Auto 3.5 x10*3/uL (2.0-8.3); Neutrophils Percent Auto 54.3 % (45-73); Platelet Count 125 X10*3/uL (160-400); Red Blood Count 2.49 X10*6/uL (4.60-5.80); White Blood Count 6.5 X10*3/uL (4.8-10.8)
[2024-03-01 06:59] LABS: Anion Gap 15 (12-20); Blood Urea Nitrogen 85 mg/dL (9-16); Calcium 8.2 mg/dL (8.4-10.2); Carbon Dioxide 24 mmol/L (22-29); Chloride 105 mmol/L (96-108); Creatinine Clr Calc Pharmacy 9.6; Estimated Glomerular Filt Rate 7; Glucose Random 111 mg/dL (60-115); Potassium 4.4 mmol/L (3.3-5.1); Sodium 140 mmol/L (135-145)
[2024-03-01 07:39] LABS: Glucose, Whole Blood 108 mg/dL (60-115)
--- NOTE | 2024-03-01 08:37 | PM.EVENT ---
Event Note Date of Service: 03/01/24 Event Note: Pt seen yesterday in ER D/w Medical team - Full consult dictated Continue IVF K is better Low K diet Hold Plavix NPO after MN on Sunday for PC on Sunday Orders for Permcath to be oplaced by Medical team PT/ PTT ordered by medical team Thx Time Spent With Patient Time: Total time managing care of this patient today ____ minutes.
[2024-03-01] MEDS: Tamsulosin HCL 0.4 MG CAPSULE PO (10:08)
[2024-03-01] MEDS: Atorvastatin Calcium 80 MG TABLET PO (10:08)
[2024-03-01] MEDS: Heparin Sodium,Porcine 5,000 UNIT/ML VIAL 5000 UNIT SUBCUT ×2 (10:09→21:07)
[2024-03-01] MEDS: Metoprolol Succinate ER 100 MG TAB.ER.24H 200 MG PO (10:09)
[2024-03-01] MEDS: 0.9 % Sodium Chloride Flush 3 ML SYRINGE IVFLUSH (10:09)
[2024-03-01] MEDS: Finasteride 5 MG TABLET PO (10:09)
[2024-03-01 12:51] LABS: Glucose, Whole Blood 158 mg/dL (60-115)
[2024-03-01] MEDS: Insulin Lispro 100 UNIT/ML 3 ML VIAL SUBCUT (13:10)
--- NOTE | 2024-03-01 13:59 | P.PNIM_ITS ---
Subjective Subjective Date of Service: 03/01/24 Interval History: c/o unsteadiness but has had this since his stroke no improvement in Cr no N/V Review of Systems Review of Systems: Yes all other systems are reviewed and are negative Physical Exam 2 Vital Signs: Vital Signs: Last Vital Signs Temp 97.6 F 03/01/24 12:00 Pulse 70 03/01/24 12:00 Resp 18 03/01/24 12:00 BP 143/75 H 03/01/24 12:00 Pulse Ox 99 03/01/24 12:00 O2 Del Method Room Air 03/01/24 12:00 BMI result Body Mass Index 25.3 Gen: in no acute distress HEENT: sclera anicteric, moist mucus membranes Neck: supple Lungs: clear to auscultation bilaterally Heart: regular rate and rhythm, no murmurs Abd: soft, non-tender, non-distended Ext: no edema Skin: warm/well-perfused Neuro: alert and oriented x3, no focal findings Psych: appropriate affect Objective Data Active Medications Acetaminophen (Acetaminophen 325 Mg Tablet) 650 mg PO Q6H PRN PRN Reason: Pain, Mild (Pain Scale 1-3), fever or headache Atorvastatin Calcium (Atorvastatin Calcium 80 Mg Tablet) 80 mg PO DAILY [facility] Last Admin: 03/01/24 10:08 Dose: 80 mg Documented By: VALDO Calcium Carbonate (Calcium Carbonate 750 Mg Tab.Chew) 750 mg PO Q4H PRN PRN Reason: Heartburn Finasteride (Finasteride 5 Mg Tablet) 5 mg PO DAILY [facility] Last Admin: 03/01/24 10:09 Dose: 5 mg Documented By: VALDO Glucose (Glucose Gel 15 Gm Gel..Gram.) 15 gm PO Q15M PRN; Protocol PRN Reason: per Hypoglycemia Standing Ord. Heparin Sodium (Porcine) (Heparin Sodium,Porcine 5,000 Unit/Ml Vial) 5,000 unit SUBCUT Q12H [facility] Last Admin: 03/01/24 10:09 Dose: 5,000 unit Documented By: VALDO Sodium Bicarbonate 150 meq/ (Dextrose) 1,000 mls @ 100 mls/hr IV .Q10H [facility] Last Admin: 03/01/24 03:34 Dose: 100 mls/hr Documented By: SHERRI Dextrose (D10) 250 mls @ 750 mls/hr IV Q15M PRN; Protocol PRN Reason: per Hypoglycemia Standing Ord. Insulin Human Lispro (Insulin Lispro 100 Unit/Ml 3 Ml Vial) 0 unit SUBCUT QIDACHS [facility]; Protocol Last Admin: 03/01/24 10:09 Dose: Not Given Documented By: VALDO Non-Admin Reason: No Insulin Coverage Magnesium Hydroxide (Milk Of Magnesia 30 Ml Oral.Susp) 30 ml PO DAILY PRN PRN Reason: Constipation Melatonin (Melatonin 3 Mg Tablet) 6 mg PO BEDTIME PRN PRN Reason: Insomnia Metoprolol Succinate (Metoprolol Succinate Er 100 Mg Tab.Er.24h) 200 mg PO DAILY [facility]; Protocol Last Admin: 03/01/24 10:09 Dose: 200 mg Documented By: VALDO Ondansetron HCl (Ondansetron Hcl 4 Mg/2 Ml Vial) 4 mg IVPUSH Q8H PRN PRN Reason: Nausea and Vomiting Sodium Chloride (0.9 % Sodium Chloride Flush 3 Ml Syringe) 3 ml IVFLUSH QSHIFT [facility] Last Admin: 03/01/24 10:09 Dose: 3 ml Documented By: VALDO Tamsulosin HCl (Tamsulosin Hcl 0.4 Mg Capsule) 0.4 mg PO DAILY [facility] Last Admin: 03/01/24 10:08 Dose: 0.4 mg Documented By: VALDO Labs 03/01/24 05:59 03/01/24 05:59 Labs: Laboratory Results - last 24 hr 02/29/24 02/29/24 02/29/24 14:16 18:13 21:48 MCV MCH MCHC RDW Plt Count MPV Immature Gran % (Auto) Neut % (Auto) Lymph % (Auto) Mellette % (Auto) Eos % (Auto) Baso % (Auto) Lymph # (Auto) Mellette # (Auto) Eos # (Auto) Baso # (Auto) Abs Immat Gran (auto) Absolute Neuts (auto) Absolute Nucleated RBC Nucleated RBC % (auto) PT 12.2 INR 1.0 APTT 28.8 Anion Gap Estim Creat Clear Calc Estimated GFR POC Glucose 187 H 115 Random Glucose Calcium 03/01/24 03/01/24 03/01/24 05:59 07:34 12:44 MCV 88.8 MCH 29.3 MCHC 33.0 RDW 14.0 Plt Count 125 L MPV 11.9 Immature Gran % (Auto) 0.2 Neut % (Auto) 54.3 Lymph % (Auto) 31.7 Mellette % (Auto) 10.3 Eos % (Auto) 3.2 Baso % (Auto) 0.3 Lymph # (Auto) 2.1 Mellette # (Auto) 0.7 Eos # (Auto) 0.2 Baso # (Auto) 0.0 Abs Immat Gran (auto) 0.01 Absolute Neuts (auto) 3.5 Absolute Nucleated RBC 0.000 Nucleated RBC % (auto) 0.0 PT INR APTT Anion Gap 15 Estim Creat Clear Calc 9.6 Estimated GFR 7 POC Glucose 108 158 H Random Glucose 111 Calcium 8.2 L Assessment and Plan (1) CRYSTAL (acute kidney injury): Status: Acute (2) Acute hyperkalemia: Status: Acute (3) Incomplete bladder emptying: Status: Acute Plan d3 68yo M with CAD s/p STEMI 2022 with PCI, CHF, CVA x2, DM2, CKD3 sent in for CRYSTAL/hyperK/metabolic acidosis metabolic acidosis due to CRYSTAL/CKD3 - Nephrology following, continue bicarbonate drip, plan Permacath placement 03/03 hyperK - resolved after insulin/Lokelma acute/chronic anemia likely due to CKD - check ferritin and FOBT, T+S, recheck H+H in AM CAD PAD - DAPT on hold for Permacath placement, continue atorvastatin + metoprolol succinate DM2 - hold MTF, continue charmaine-dose lispro CHF - hold torsemide VTE ppx - UFH dispo - eventual home with VNA; PT eval after Permacath placement In my clinical judgment, the patient requires continued inpatient hospitalization for the following reasons: CRYSTAL/CKD, possible HD Total time managing care of this patient today: 35 minutes. Quality Stroke Does the patient have a stroke diagnosis?: No VTE Prior VTE?: No VTE Risk Level:: Medical - moderate - high VTE Device Contraindication: Treatment Not Indicated VTE Drug Contraindication: N/A - Med Ordered
[2024-03-01 16:31] LABS: Glucose, Whole Blood 127 mg/dL (60-115)
[2024-03-01 20:20] LABS: Glucose, Whole Blood 145 mg/dL (60-115)
[2024-03-01] MEDS: Melatonin 3 MG TABLET 6 MG PO (21:06)
[2024-03-02] VITALS (11 sets, daily range): BP systolic 110–158; BP diastolic 53–85; PULSE 67–75; RESP 16–20; TEMP 36.1–37; O2SAT 96–99
[2024-03-02] MEDS: Sodium Bicarbonate 8.4% 150 MEQ in Dextrose 5 % 850 ML 100 MEQ IV ×2 (01:25→18:15)
[2024-03-02] MEDS: 0.9 % Sodium Chloride Flush 3 ML SYRINGE IVFLUSH ×3 (01:25→15:38)
--- NOTE | 2024-03-02 06:31 | PC.NURSE ---
Assumed care of patient since 1845. Patient is AAOX3 with weakness and unsteady gait. Assisted to bathroom x 1 for a large, soft BM. Beth catheter in place draining clear, yellow urine. VSS. Plan of care reviewed.No signs of distress noted..
[2024-03-02 07:12] LABS: Hematocrit 21.7 % (42.0-52.0)
[2024-03-02 07:18] LABS: Hemoglobin 7.1 g/dl (14.0-18.0); Mean Corpuscular HGB Conc 32.7 g/dl (31.0-36.0); Mean Corpuscular Hemoglobin 29.8 pg (27.0-33.0); Mean Corpuscular Volume 91.2 fL (80.0-98.0); Mean Platelet Volume 11.4 fL (9.4-12.4); Platelet Count 111 X10*3/uL (160-400); Red Blood Count 2.38 X10*6/uL (4.60-5.80); Red Cell Distribution Width 14.2 % (11.0-16.0); White Blood Count 6.4 X10*3/uL (4.8-10.8)
[2024-03-02 07:40] LABS: Glucose, Whole Blood 98 mg/dL (60-115)
[2024-03-02 07:58] LABS: Ferritin 279 ng/mL (20-250)
[2024-03-02 08:03] LABS: Anion Gap 18 (12-20); Blood Urea Nitrogen 83 mg/dL (9-16); Carbon Dioxide 26 mmol/L (22-29); Chloride 101 mmol/L (96-108); Creatinine Clr Calc Pharmacy 9.6; Estimated Glomerular Filt Rate 7; Glucose Random 106 mg/dL (60-115); Iron 76 mcg/dL (45-160); Percent Iron Saturation 52 % (15-50); Potassium 3.8 mmol/L (3.3-5.1); Sodium 141 mmol/L (135-145); Total Iron Binding Capacity 145 mcg/dL (228-428); Unsaturated Iron Binding 69 ug/dL
[2024-03-02] MEDS: Heparin Sodium,Porcine 5,000 UNIT/ML VIAL 5000 UNIT SUBCUT ×2 (09:11→21:43)
[2024-03-02] MEDS: Finasteride 5 MG TABLET PO (09:11)
[2024-03-02] MEDS: Tamsulosin HCL 0.4 MG CAPSULE PO (09:11)
[2024-03-02] MEDS: Metoprolol Succinate ER 100 MG TAB.ER.24H 200 MG PO (09:11)
[2024-03-02] MEDS: Atorvastatin Calcium 80 MG TABLET PO (09:11)
--- NOTE | 2024-03-02 09:38 | HO.PM.IMPN ---
Subjective Subjective Date of Service: 03/02/24 Interval History: denies any dyspnea, nausea, vomiting, or edema making over 1L urine/day Review of Systems Review of Systems: Yes all other systems are reviewed and are negative Physical Exam Vital Signs: Vital Signs: Last Vital Signs Temp 97.4 F 03/02/24 07:30 Pulse 67 03/02/24 07:30 Resp 16 03/02/24 07:30 BP 118/62 03/02/24 07:30 Pulse Ox 98 03/02/24 07:30 O2 Del Method Room Air 03/02/24 07:30 BMI result Body Mass Index 25.3 Gen: in no acute distress HEENT: sclera anicteric, moist mucus membranes Neck: supple Lungs: clear to auscultation bilaterally Heart: regular rate and rhythm, no murmurs Abd: soft, non-tender, non-distended Ext: no edema Skin: warm/well-perfused Neuro: alert and oriented x3, no focal findings Psych: appropriate affect Objective Data Active Medications Acetaminophen (Acetaminophen 325 Mg Tablet) 650 mg PO Q6H PRN PRN Reason: Pain, Mild (Pain Scale 1-3), fever or headache Atorvastatin Calcium (Atorvastatin Calcium 80 Mg Tablet) 80 mg PO DAILY [facility] Last Admin: 03/02/24 09:11 Dose: 80 mg Documented By: VALDO Calcium Carbonate (Calcium Carbonate 750 Mg Tab.Chew) 750 mg PO Q4H PRN PRN Reason: Heartburn Finasteride (Finasteride 5 Mg Tablet) 5 mg PO DAILY [facility] Last Admin: 03/02/24 09:11 Dose: 5 mg Documented By: VALDO Glucose (Glucose Gel 15 Gm Gel..Gram.) 15 gm PO Q15M PRN; Protocol PRN Reason: per Hypoglycemia Standing Ord. Heparin Sodium (Porcine) (Heparin Sodium,Porcine 5,000 Unit/Ml Vial) 5,000 unit SUBCUT Q12H [facility] Last Admin: 03/02/24 09:11 Dose: 5,000 unit Documented By: VALDO Dextrose (D10) 250 mls @ 750 mls/hr IV Q15M PRN; Protocol PRN Reason: per Hypoglycemia Standing Ord. Sodium Bicarbonate 150 meq/ (Dextrose) 1,000 mls @ 100 mls/hr IV .Q10H [facility] Last Admin: 03/02/24 01:25 Dose: 100 mls/hr Documented By: PARAMJIT Insulin Human Lispro (Insulin Lispro 100 Unit/Ml 3 Ml Vial) 0 unit SUBCUT QIDACHS [facility]; Protocol Last Admin: 03/02/24 07:43 Dose: Not Given Documented By: VALDO Non-Admin Reason: No Insulin Coverage Magnesium Hydroxide (Milk Of Magnesia 30 Ml Oral.Susp) 30 ml PO DAILY PRN PRN Reason: Constipation Melatonin (Melatonin 3 Mg Tablet) 6 mg PO BEDTIME PRN PRN Reason: Insomnia Last Admin: 03/01/24 21:06 Dose: 6 mg Documented By: PARAMJIT Metoprolol Succinate (Metoprolol Succinate Er 100 Mg Tab.Er.24h) 200 mg PO DAILY [facility]; Protocol Last Admin: 03/02/24 09:11 Dose: 200 mg Documented By: VALDO Ondansetron HCl (Ondansetron Hcl 4 Mg/2 Ml Vial) 4 mg IVPUSH Q8H PRN PRN Reason: Nausea and Vomiting Sodium Chloride (0.9 % Sodium Chloride Flush 3 Ml Syringe) 3 ml IVFLUSH QSHIFT [facility] Last Admin: 03/02/24 09:11 Dose: 3 ml Documented By: VADLO Tamsulosin HCl (Tamsulosin Hcl 0.4 Mg Capsule) 0.4 mg PO DAILY [facility] Last Admin: 03/02/24 09:11 Dose: 0.4 mg Documented By: VALDO Labs 03/02/24 07:01 03/02/24 07:01 Labs: Laboratory Results - last 24 hr 03/01/24 03/01/24 03/01/24 12:44 16:27 20:04 MCV MCH MCHC RDW Plt Count MPV Absolute Nucleated RBC Nucleated RBC % (auto) Anion Gap Estim Creat Clear Calc Estimated GFR POC Glucose 158 H 127 H 145 H Random Glucose Calcium Iron TIBC % Saturation Unsat Iron Binding Ferritin Blood Type Antibody Screen Crossmatch 03/02/24 03/02/24 07:01 07:32 MCV 91.2 MCH 29.8 MCHC 32.7 RDW 14.2 Plt Count 111 L MPV 11.4 Absolute Nucleated RBC 0.000 Nucleated RBC % (auto) 0.0 Anion Gap 18 Estim Creat Clear Calc 9.6 Estimated GFR 7 POC Glucose 98 Random Glucose 106 Calcium 8.0 L Iron 76 TIBC 145 L % Saturation 52 H Unsat Iron Binding 69 Ferritin 279 H Blood Type O Positive Antibody Screen NEGATIVE Crossmatch See Detail Assessment and Plan (1) CRYSTAL (acute kidney injury): Status: Acute (2) Acute hyperkalemia: Status: Acute (3) Incomplete bladder emptying: Status: Acute Plan d4 68yo M with CAD s/p STEMI 2022 with PCI, CHF, CVA x2, DM2, CKD3 sent in for CRYSTAL/hyperK/metabolic acidosis metabolic acidosis due to CRYSTAL/CKD3 - Nephrology following, d/c bicarbonate drip, plan Permacath placement 03/03 in absence renal recovery hyperK - resolved after insulin/Lokelma acute/chronic anemia likely due to CKD - consented for 1u pRBCs after discussion of risks/benefits, will give over 4h; recheck H+H in AM - to discuss epo with Nephrology - FOBT pending CAD PAD - DAPT on hold for Permacath placement, continue atorvastatin + metoprolol succinate DM2 - hold MTF, continue charmaine-dose lispro CHF - hold torsemide VTE ppx - UFH dispo - eventual home with VNA; PT eval after Permacath placement; Nephro may have to arrange outpt HD In my clinical judgment, the patient requires continued inpatient hospitalization for the following reasons: CRYSTAL/CKD, possible HD Total time managing care of this patient today: 35 minutes. Quality Stroke Does the patient have a stroke diagnosis?: No VTE Prior VTE?: No VTE Risk Level:: Medical - moderate - high VTE Device Contraindication: Treatment Not Indicated VTE Drug Contraindication: N/A - Med Ordered
[2024-03-02 11:20] LABS: Glucose, Whole Blood 149 mg/dL (60-115)
[2024-03-02 16:24] LABS: Glucose, Whole Blood 141 mg/dL (60-115)
[2024-03-02 19:58] LABS: Glucose, Whole Blood 158 mg/dL (60-115)
[2024-03-02] MEDS: Insulin Lispro 100 UNIT/ML 3 ML VIAL SUBCUT (21:43)
[2024-03-03] VITALS (7 sets, daily range): BP systolic 126–155; BP diastolic 62–80; PULSE 66–74; RESP 16–20; TEMP 36.2–36.8; O2SAT 96–99
[2024-03-03] MEDS: 0.9 % Sodium Chloride Flush 3 ML SYRINGE IVFLUSH ×2 (00:17→22:06)
[2024-03-03] MEDS: Sodium Bicarbonate 8.4% 150 MEQ in Dextrose 5 % 850 ML 100 MEQ IV (05:26)
[2024-03-03 07:03] LABS: Hematocrit 22.6 % (42.0-52.0); Hemoglobin 7.5 g/dl (14.0-18.0); Mean Corpuscular HGB Conc 33.2 g/dl (31.0-36.0); Mean Corpuscular Hemoglobin 29.1 pg (27.0-33.0); Mean Corpuscular Volume 87.6 fL (80.0-98.0); Mean Platelet Volume 11.3 fL (9.4-12.4); Platelet Count 114 X10*3/uL (160-400); Red Blood Count 2.58 X10*6/uL (4.60-5.80); Red Cell Distribution Width 15.3 % (11.0-16.0); White Blood Count 6.5 X10*3/uL (4.8-10.8)
[2024-03-03 07:08] LABS: Partial Thromboplastin Time 29.3 SEC (26.0-36.8)
[2024-03-03 07:12] LABS: INTERNATIONAL NORM RATIO 1.1 (0.9-1.1); Prothrombin Time 13.2 SEC (11.1-13.3)
[2024-03-03 07:19] LABS: Anion Gap 15 (12-20); Blood Urea Nitrogen 80 mg/dL (9-16); Calcium 7.8 mg/dL (8.4-10.2); Carbon Dioxide 31 mmol/L (22-29); Chloride 99 mmol/L (96-108); Creatinine Clr Calc Pharmacy 9.9; Estimated Glomerular Filt Rate 7; Glucose Random 105 mg/dL (60-115); Potassium 3.5 mmol/L (3.3-5.1); Sodium 141 mmol/L (135-145)
[2024-03-03 07:36] LABS: Glucose, Whole Blood 99 mg/dL (60-115)
--- NOTE | 2024-03-03 09:37 | CONS_ITS ---
DATE OF SERVICE: 02/29/2024 REASON FOR CONSULTATION: Consult requested by medical team to evaluate and help in management of patient with severe hyperkalemia, metabolic acidosis, and worsening renal function. HISTORY OF PRESENT ILLNESS: Patient is a 68-year-old gentleman with past medical history of coronary artery disease/ST-elevation IA in 2022, status post stenting, history of CHF, CVA x2, type 2 diabetes mellitus, who has been followed by Dr. Snider in our office with worsening renal function, who had 3 physical blood tests drawn, which came back showing that the creatinine level was significantly elevated. Patient was taken off metformin and his torsemide was held for 5 days and the plan was to see him again in [address] Snider' office. There was a followup lab work done, which showed potassium level and creatinine level were significantly elevated. He had decreasing energy and his appetite was low. He reported about 10 pounds weight loss over the last 2 weeks. He has been drinking normally, but not able to eat adequate amount of food. There was no dysuria, urgency, urination, dribbling. There was no fever, chills, nausea, vomiting, diarrhea, or abdominal pain. There was no chest pain or palpitation. He had difficult Beth catheter placement and about 800 mL of urine was drained. In the ER, patient was hemodynamically stable and BUN was 98 with creatinine of 8.38. The bicarb level was 14. Potassium was 6.6. He was acidotic with a pH of 7.23. He was treated medically and his potassium level is improved. Renal consult has been requested to help with management of his severe renal insufficiency. REVIEW OF SYSTEMS: As noted above. All other systems were reviewed and negative. PAST MEDICAL HISTORY: History of type 2 diabetes mellitus, chronic kidney disease stage 4 at baseline with baseline creatinine around 4.56, history of heart failure, hyperlipidemia, ST-elevation IA, coronary artery disease, history of CVA. SOCIAL HISTORY: Patient does not smoke at the present time. Does not drink alcohol. Does not use drugs. ALLERGIES: PATIENT HAS NO KNOWN DRUG ALLERGIES. OUTPATIENT MEDICATIONS: Include atorvastatin; Plavix; metformin, which is on hold; metoprolol; furosemide, which is also on hold; and Flomax. PHYSICAL EXAMINATION: GENERAL: Patient is resting in the ER bed. Awake, alert, oriented x3. VITAL SIGNS: Blood pressure is 138/80, pulse 76, afebrile. HEENT: Shows pupils are equal, round, and reactive bilaterally to light. No jugular venous distention is noted. NECK: Supple. CARDIOVASCULAR SYSTEM: S1, S2 without rub. RESPIRATORY SYSTEM: Mildly decreased in bases. No crepitation or rhonchi is noted. ABDOMEN: Soft, nontender. Bowel sounds normal. EXTREMITIES: Showed no edema. LABORATORY DATA: Labs done recently. Sodium 139, potassium 4.9, chloride 111, CO2 16, BUN 96, creatinine 7.77. Hemoglobin 7.2, hematocrit 22.4, WBC 6.7, platelets 120. IMPRESSION: 1. 68-year-old male with acute kidney injury. Acute kidney injury in this patient likely secondary to multifactorial reasons. The patient clinically looks prerenal. There is also postrenal component as patient had a Beth catheter placed, which was difficult placement and passed about 1.[address] of the abdomen and the pelvis is negative for any hydronephrosis or obstruction. At this juncture, I doubt patient has acute GN/interstitial disease. 2. Chronic kidney disease stage 4 at baseline. 3. History of heart failure. 4. Hypertension. 5. Hyperkalemia due to acute kidney injury, chronic kidney disease, and obstructive uropathy. 6. Non-anion gap metabolic acidosis in the setting of worsening renal function. RECOMMENDATION: At this juncture, I had taken liberty to order spot urine for electrolytes, protein, creatinine. I would hold off on metformin and avoid using metformin in this patient given worsening renal function. I also agree with holding off on torsemide for now. Agree with IV fluids with sodium bicarbonate and based on the urine output, we might have to increase the rate of IV fluids as he might have a component of postobstructive diuresis. Agree with medical management for hyperkalemia. For bicarb, increases more than 22, I recommend discontinuing the bicarb in the IV. We can place him on sodium bicarbonate tablets 650 mg b.i.d., which will help with acidosis and hyperkalemia in long-term. If patient's renal function does not improve, he might require renal replacement therapy. I have advised medical team to keep patient n.p.o. after midnight on Sunday, hold Plavix if possible after discussion with Cardiology and to check coagulation profile for possible PermCath on Sunday. If patient starts making urine and his renal function improves, we might hold off on the PermCath. Thank you for allowing me to participate in medical management of the patient. MD DARLENE Love/ROZ / [phone]
--- NOTE | 2024-03-03 10:30 | PM.PROC ---
Brief Operative Note Date of procedure: 03/03/24 Pre-op diagnosis: ESRD needs access for HD Post-op diagnosis: same Procedure: Right IJ 27 cm Permcath placed using US and Fluoro. Tip in right atrium. No immediate complications. Ok for immediate use.
[2024-03-03] MEDS: Finasteride 5 MG TABLET PO (10:54)
[2024-03-03] MEDS: Heparin Sodium,Porcine 5,000 UNIT/ML VIAL 5000 UNIT SUBCUT ×2 (10:55→22:05)
[2024-03-03] MEDS: Tamsulosin HCL 0.4 MG CAPSULE PO (10:55)
[2024-03-03] MEDS: Metoprolol Succinate ER 100 MG TAB.ER.24H 200 MG PO (10:55)
[2024-03-03] MEDS: Atorvastatin Calcium 80 MG TABLET PO (10:56)
[2024-03-03 11:38] LABS: Glucose, Whole Blood 121 mg/dL (60-115)
--- NOTE | 2024-03-03 11:39 | MHC.CM.PN ---
EMR REVIEWED, PT W/WORSENING CRYSTAL/CKD3, PLAN FOR PERMACATH PLACEMENT TODAY AND HD, NO PLAN FOR DC AT THIS TIME, CM WILL CONT TO FOLLOW DC NEEDS.
--- NOTE | 2024-03-03 11:50 | P.PNIM_ITS ---
Subjective Subjective Date of Service: 03/03/24 Interval History: seen and examined this AM reports no complaints Review of Systems Negative except HPI/interval history. Physical Exam 2 Vital Signs: Vital Signs: Last Vital Signs Temp 98.0 F 03/03/24 11:36 Pulse 665 H 03/03/24 11:36 Resp 19 03/03/24 11:36 BP 152/76 H 03/03/24 11:36 Pulse Ox 96 03/03/24 11:36 O2 Del Method Room Air 03/03/24 11:36 BMI result Body Mass Index 25.3 Const: Other: General - no acute distress, appears comfortable Cardiovascular - regular rate and rhythm, S1-S2 Lungs - normal respiratory effort, clear to auscultation bilaterally, no wheezing Abdomen - soft, nontender, no rebound or guarding Extremities - no edema bilaterally Neuro - awake and alert, no focal deficits Objective Data Active Medications Acetaminophen (Acetaminophen 325 Mg Tablet) 650 mg PO Q6H PRN PRN Reason: Pain, Mild (Pain Scale 1-3), fever or headache Atorvastatin Calcium (Atorvastatin Calcium 80 Mg Tablet) 80 mg PO DAILY [facility] Last Admin: 03/03/24 10:56 Dose: 80 mg Documented By: RAHUL Calcium Carbonate (Calcium Carbonate 750 Mg Tab.Chew) 750 mg PO Q4H PRN PRN Reason: Heartburn Finasteride (Finasteride 5 Mg Tablet) 5 mg PO DAILY [facility] Last Admin: 03/03/24 10:54 Dose: 5 mg Documented By: RAHUL Glucose (Glucose Gel 15 Gm Gel..Gram.) 15 gm PO Q15M PRN; Protocol PRN Reason: per Hypoglycemia Standing Ord. Heparin Sodium (Porcine) (Heparin Sodium,Porcine 5,000 Unit/Ml Vial) 5,000 unit SUBCUT Q12H [facility] Last Admin: 03/03/24 10:55 Dose: 5,000 unit Documented By: RAHUL Dextrose (D10) 250 mls @ 750 mls/hr IV Q15M PRN; Protocol PRN Reason: per Hypoglycemia Standing Ord. Insulin Human Lispro (Insulin Lispro 100 Unit/Ml 3 Ml Vial) 0 unit SUBCUT QIDACHS [facility]; Protocol Last Admin: 03/03/24 07:56 Dose: Not Given Documented By: RAHUL Non-Admin Reason: No Insulin Coverage Magnesium Hydroxide (Milk Of Magnesia 30 Ml Oral.Susp) 30 ml PO DAILY PRN PRN Reason: Constipation Melatonin (Melatonin 3 Mg Tablet) 6 mg PO BEDTIME PRN PRN Reason: Insomnia Last Admin: 03/01/24 21:06 Dose: 6 mg Documented By: PARAMJIT Metoprolol Succinate (Metoprolol Succinate Er 100 Mg Tab.Er.24h) 200 mg PO DAILY [facility]; Protocol Last Admin: 03/03/24 10:55 Dose: 200 mg Documented By: RAHUL Ondansetron HCl (Ondansetron Hcl 4 Mg/2 Ml Vial) 4 mg IVPUSH Q8H PRN PRN Reason: Nausea and Vomiting Sodium Chloride (0.9 % Sodium Chloride Flush 3 Ml Syringe) 3 ml IVFLUSH QSHIFT [facility] Last Admin: 03/03/24 08:48 Dose: Not Given Documented By: RAHUL Non-Admin Reason: IV Running Tamsulosin HCl (Tamsulosin Hcl 0.4 Mg Capsule) 0.4 mg PO DAILY [facility] Last Admin: 03/03/24 10:55 Dose: 0.4 mg Documented By: RAHUL Labs 03/03/24 06:45 03/03/24 06:45 Labs: Laboratory Results - last 24 hr 03/02/24 03/02/24 03/02/24 07:01 16:15 19:51 MCV MCH MCHC RDW Plt Count MPV Absolute Nucleated RBC Nucleated RBC % (auto) PT INR APTT Anion Gap Estim Creat Clear Calc Estimated GFR POC Glucose 141 H 158 H Random Glucose Calcium Blood Type O Positive Antibody Screen NEGATIVE Crossmatch See Detail 03/03/24 03/03/24 03/03/24 06:45 06:46 07:12 MCV 87.6 MCH 29.1 MCHC 33.2 RDW 15.3 Plt Count 114 L MPV 11.3 Absolute Nucleated RBC 0.000 Nucleated RBC % (auto) 0.0 PT 13.2 INR 1.1 APTT 29.3 Anion Gap 15 Estim Creat Clear Calc 9.9 Estimated GFR 7 POC Glucose 99 Random Glucose 105 Calcium 7.8 L Blood Type Antibody Screen Crossmatch 03/03/24 11:20 MCV MCH MCHC RDW Plt Count MPV Absolute Nucleated RBC Nucleated RBC % (auto) PT INR APTT Anion Gap Estim Creat Clear Calc Estimated GFR POC Glucose 121 H Random Glucose Calcium Blood Type Antibody Screen Crossmatch Assessment and Plan (1) CRYSTAL (acute kidney injury): Status: Acute (2) Acute hyperkalemia: Status: Acute (3) Incomplete bladder emptying: Status: Acute Plan d4 68yo M with CAD s/p STEMI 2022 with PCI, CHF, CVA x2, DM2, CKD3 sent in for CRYSTAL/hyperK/metabolic acidosis metabolic acidosis due to CRYSTAL/CKD3 now ESRD permacath today nephrology to determine dialysis hyperK - resolved after insulin/Lokelma acute/chronic anemia likely due to CKD h/h stable epo per nephro - FOBT pending CAD PAD - DAPT on hold for Permacath placement, continue atorvastatin + metoprolol succinate DM2 - hold MTF, continue charmaine-dose lispro CHF - hold torsemide VTE ppx - UFH dispo - eventual home with VNA; PT eval after Permacath placement; Nephro may have to arrange outpt HD In my clinical judgment, the patient requires continued inpatient hospitalization for the following reasons: permacath + HD Total time managing care of this patient today: 35 minutes. Quality Stroke Does the patient have a stroke diagnosis?: No VTE Prior VTE?: No VTE Risk Level:: Medical - moderate - high VTE Device Contraindication: Treatment Not Indicated VTE Drug Contraindication: N/A - Med Ordered
--- NOTE | 2024-03-03 12:46 | P.PNNP_ITS ---
Subjective Subjective Date of Service: 03/03/24 Interval history: seen and examined this AM reports no complaints s/p Pcath pacement rosario still in Physical Exam 2 Vital Signs: Vital Signs: Last Vital Signs Temp 98.0 F 03/03/24 11:36 Pulse 665 H 03/03/24 11:36 Resp 19 03/03/24 11:36 BP 152/76 H 03/03/24 11:36 Pulse Ox 96 03/03/24 11:36 O2 Del Method Room Air 03/03/24 11:36 BMI result Body Mass Index 25.3 Const: Other: General - no acute distress, appears comfortable Cardiovascular - regular rate and rhythm, S1-S2 Lungs - normal respiratory effort, clear to auscultation bilaterally, no wheezing Abdomen - soft, nontender, no rebound or guarding Extremities - no edema bilaterally Neuro - awake and alert, no focal deficits General: cooperative, healthy appearing, comfortable and no acute distress Nutritional Appearance: cachectic Orientation/consciousness: patient oriented x3 HEENT: Head: Yes normal to inspection, Yes normocephalic and Yes atraumatic Face and sinus: Yes normal facial exam Mouth: moist mucous membranes Eyes: General: appearance normal, both eyes and all related structures C onjunctivae: conjunctivae normal Pupils: Equal, round and reactive pupils present EOM: EOMs intact bilaterally Neck: Neck: Yes normal visual inspection, Yes full ROM, Yes trachea midline, Yes supple and No tender Chest: Chest palpation & inspection: normal inspection of the chest and normal palpation of entire chest wall Resp: Effort & Inspection: normal respiratory effort, able to speak in complete sentences, no cough and no respiratory distress Auscultation: clear to auscultation bilaterally Cardio: Rate: regular rate Rhythm: regular rhythm GI: Inspection: Yes normal to inspection, No Abdominal wall edema and No distended Palpation (GI): Soft to palpation, not firm, nontender, no guarding and not rigid Auscultation: normal bowel sounds : Penis: uncircumcised (phimosis) Back/Spine/Pelvis: Back: No back tenderness Cervical Spine: normal cervical lordosis Thoracic/Lumbar Spine: thoracic and lumbar spine normal to inspection Skin: General skin exam: no rashes or lesions noted Neuro: General: patient oriented x3, tone normal and moves all extremities Cranial nerves: Yes Equal, round and reactive pupils present Motor exam (neuro): 5/5 motor strength present throughout Sensory Exam: No Sensory deficit (Neuro) Extrem: General: Yes normal to inspection and Yes capillary refill normal Psych: Appearance: grossly normal Affect: normal affect Objective Data Labs 03/03/24 06:45 03/03/24 06:45 Labs: Laboratory Results - last 24 hr 03/02/24 03/02/24 03/02/24 07:01 16:15 19:51 WBC RBC Hgb Hct MCV MCH MCHC RDW Plt Count MPV Absolute Nucleated RBC Nucleated RBC % (auto) PT INR APTT Sodium Potassium Chloride Carbon Dioxide Anion Gap BUN Creatinine Estim Creat Clear Calc Estimated GFR POC Glucose 141 H 158 H Random Glucose Calcium Crossmatch See Detail 03/03/24 03/03/24 03/03/24 06:45 06:46 07:12 WBC 6.5 RBC 2.58 L Hgb 7.5 L Hct 22.6 L MCV 87.6 MCH 29.1 MCHC 33.2 RDW 15.3 Plt Count 114 L MPV 11.3 Absolute Nucleated RBC 0.000 Nucleated RBC % (auto) 0.0 PT 13.2 INR 1.1 APTT 29.3 Sodium 141 Potassium 3.5 Chloride 99 Carbon Dioxide 31 H Anion Gap 15 BUN 80 H Creatinine 7.62 H* Estim Creat Clear Calc 9.9 Estimated GFR 7 POC Glucose 99 Random Glucose 105 Calcium 7.8 L Crossmatch 03/03/24 11:20 WBC RBC Hgb Hct MCV MCH MCHC RDW Plt Count MPV Absolute Nucleated RBC Nucleated RBC % (auto) PT INR APTT Sodium Potassium Chloride Carbon Dioxide Anion Gap BUN Creatinine Estim Creat Clear Calc Estimated GFR POC Glucose 121 H Random Glucose Calcium Crossmatch Procedures Date of Service Date of Service: 03/03/24 Assessment & Plan Assessment and plan (1) CRYSTAL (acute kidney injury): Status: Acute (2) Acute hyperkalemia: Status: Acute (3) Incomplete bladder emptying: Status: Acute Plan 68yo M with CAD s/p STEMI 2022 with PCI, CHF, CVA x2, DM2, CKD3 sent in for CRYSTAL/hyperK/metabolic acidosis 1. CRYSTAL: renal func not bouncing back so will start HD and reassess for renal recovery as outpt 2. CKD 4 BSL Scr 2.7-3.2 ( 2022) and was 4.5 on 02/2024 at last OV; h/o DN/HTN adv renal dis 3. Nephrogenic Anemia REC: GD today and tomorrow; getting outpt HD spot; d/c rosario; epo as ordered OK to d/c once we get him outpt HD spot We will monitor him as outpt for renal recovery enough to come off HD d/w Dr Duarte Time Spent With Patient Time: Total time managing care of this patient today ____ minutes. Progress Note: Quality Stroke Does the patient have a stroke diagnosis?: No
[2024-03-03 16:09] LABS: Glucose, Whole Blood 116 mg/dL (60-115)
[2024-03-03 20:27] LABS: Glucose, Whole Blood 125 mg/dL (60-115)
[2024-03-04] VITALS (7 sets, daily range): BP systolic 103–141; BP diastolic 59–74; PULSE 63–72; RESP 16–18; TEMP 36.3–37; O2SAT 91–98
[2024-03-04 04:51] LABS: HBS Num1 1.89 mIU/mL (0-7.99); HBc Num1 0.12 S/CO (0.00-0.79); HBsAGNum1 0.94 S/CO (0.00-0.99); Hepatitis B Core Antibody Nonreactive (Nonreactive); Hepatitis B Surface Antigen Negative (Negative); ~Hepatitis B Surface Antibody NONREACTIVE (Nonreactive)
[2024-03-04 07:34] LABS: Glucose, Whole Blood 77 mg/dL (60-115)
--- NOTE | 2024-03-04 08:55 | HO.PM.IMPN ---
Subjective Subjective Date of Service: 03/04/24 Interval History: seen and examined this AM tolerated dialysis yesterday no complaints Review of Systems Negative except HPI/interval history. Physical Exam Vital Signs: Vital Signs: Last Vital Signs Temp 97.3 F 03/04/24 07:24 Pulse 63 03/04/24 07:24 Resp 18 03/04/24 07:24 BP 131/74 03/04/24 07:24 Pulse Ox 94 03/04/24 07:24 O2 Del Method Room Air 03/04/24 07:24 BMI result Body Mass Index 25.3 Const: Other: General - no acute distress, appears comfortable Cardiovascular - regular rate and rhythm, S1-S2 Lungs - normal respiratory effort, clear to auscultation bilaterally, no wheezing Abdomen - soft, nontender, no rebound or guarding Extremities - no edema bilaterally Neuro - awake and alert, no focal deficits Objective Data Active Medications Acetaminophen (Acetaminophen 325 Mg Tablet) 650 mg PO Q6H PRN PRN Reason: Pain, Mild (Pain Scale 1-3), fever or headache Atorvastatin Calcium (Atorvastatin Calcium 80 Mg Tablet) 80 mg PO DAILY [facility] Last Admin: 03/03/24 10:56 Dose: 80 mg Documented By: RAHUL Calcium Carbonate (Calcium Carbonate 750 Mg Tab.Chew) 750 mg PO Q4H PRN PRN Reason: Heartburn Finasteride (Finasteride 5 Mg Tablet) 5 mg PO DAILY [facility] Last Admin: 03/03/24 10:54 Dose: 5 mg Documented By: RAHUL Glucose (Glucose Gel 15 Gm Gel..Gram.) 15 gm PO Q15M PRN; Protocol PRN Reason: per Hypoglycemia Standing Ord. Heparin Sodium (Porcine) (Heparin Sodium,Porcine 5,000 Unit/Ml Vial) 5,000 unit SUBCUT Q12H [facility] Last Admin: 03/03/24 22:05 Dose: 5,000 unit Documented By: FRANKLIN Dextrose (D10) 250 mls @ 750 mls/hr IV Q15M PRN; Protocol PRN Reason: per Hypoglycemia Standing Ord. Insulin Human Lispro (Insulin Lispro 100 Unit/Ml 3 Ml Vial) 0 unit SUBCUT QIDACHS [facility]; Protocol Last Admin: 03/04/24 08:31 Dose: Not Given Documented By: APOLONIA Non-Admin Reason: No Insulin Coverage Magnesium Hydroxide (Milk Of Magnesia 30 Ml Oral.Susp) 30 ml PO DAILY PRN PRN Reason: Constipation Melatonin (Melatonin 3 Mg Tablet) 6 mg PO BEDTIME PRN PRN Reason: Insomnia Last Admin: 03/01/24 21:06 Dose: 6 mg Documented By: PARAMJIT Metoprolol Succinate (Metoprolol Succinate Er 100 Mg Tab.Er.24h) 200 mg PO DAILY [facility]; Protocol Last Admin: 03/03/24 10:55 Dose: 200 mg Documented By: RAHUL Ondansetron HCl (Ondansetron Hcl 4 Mg/2 Ml Vial) 4 mg IVPUSH Q8H PRN PRN Reason: Nausea and Vomiting Sodium Chloride (0.9 % Sodium Chloride Flush 3 Ml Syringe) 3 ml IVFLUSH QSHIFT [facility] Last Admin: 03/03/24 22:06 Dose: 3 ml Documented By: FRANKLIN Tamsulosin HCl (Tamsulosin Hcl 0.4 Mg Capsule) 0.4 mg PO DAILY [facility] Last Admin: 03/03/24 10:55 Dose: 0.4 mg Documented By: RAHUL Labs 03/03/24 06:45 03/03/24 06:45 Labs: Laboratory Results - last 24 hr 03/03/24 03/03/24 03/03/24 11:20 16:06 18:51 POC Glucose 121 H 116 H Hep Bs Antigen Negative Hep Bs Antibody NONREACTIVE Hep B Core Total Ab Nonreactive 03/03/24 03/04/24 19:29 07:18 POC Glucose 125 H 77 Hep Bs Antigen Hep Bs Antibody Hep B Core Total Ab Assessment and Plan (1) CRYSTAL (acute kidney injury): Status: Acute (2) Acute hyperkalemia: Status: Acute (3) Incomplete bladder emptying: Status: Acute Plan d4 68yo M with CAD s/p STEMI 2022 with PCI, CHF, CVA x2, DM2, CKD3 sent in for CRYSTAL/hyperK/metabolic acidosis metabolic acidosis due to CRYSTAL/CKD3 now ESRD permacath placed 03/03, first dialysis same date; nephrology on board - recs appreciated hyperK - resolved after insulin/Lokelma acute/chronic anemia likely due to CKD h/h stable epo per nephro - FOBT pending CAD PAD - DAPT on hold for Permacath placement, continue atorvastatin + metoprolol succinate DM2 - hold MTF, continue charmaine-dose lispro CHF - hold torsemide VTE ppx - UFH dispo [place] home once outpt HD spot arranged In my clinical judgment, the patient requires continued inpatient hospitalization for the following reasons: acute dialysis (second session today) Total time managing care of this patient today: 35 minutes. Quality Stroke Does the patient have a stroke diagnosis?: No VTE Prior VTE?: No VTE Risk Level:: Medical - moderate - high VTE Device Contraindication: Treatment Not Indicated VTE Drug Contraindication: N/A - Med Ordered
[2024-03-04 10:14] LABS: Anion Gap 12 (12-20); Blood Urea Nitrogen 54 mg/dL (9-16); Calcium 8.4 mg/dL (8.4-10.2); Carbon Dioxide 31 mmol/L (22-29); Chloride 100 mmol/L (96-108); Creatinine Clr Calc Pharmacy 12.3; Estimated Glomerular Filt Rate 9; Glucose Random 102 mg/dL (60-115); Sodium 139 mmol/L (135-145)
[2024-03-04] MEDS: Atorvastatin Calcium 80 MG TABLET PO (10:55)
[2024-03-04] MEDS: Tamsulosin HCL 0.4 MG CAPSULE PO (10:55)
[2024-03-04] MEDS: Finasteride 5 MG TABLET PO (10:56)
[2024-03-04] MEDS: Metoprolol Succinate ER 100 MG TAB.ER.24H 200 MG PO (10:58)
[2024-03-04] MEDS: Heparin Sodium,Porcine 5,000 UNIT/ML VIAL 5000 UNIT SUBCUT ×2 (10:59→22:12)
[2024-03-04] MEDS: 0.9 % Sodium Chloride Flush 3 ML SYRINGE IVFLUSH ×2 (10:59→22:13)
[2024-03-04 11:34] LABS: Glucose, Whole Blood 141 mg/dL (60-115)
[2024-03-04 16:25] LABS: Glucose, Whole Blood 109 mg/dL (60-115)
[2024-03-04 20:45] LABS: Glucose, Whole Blood 130 mg/dL (60-115)
[2024-03-05 03:22] VITALS: BP 122/71; PULSE 68; RESP 18; TEMP 36.4; O2SAT 98
--- NOTE | 2024-03-05 06:42 | PC.NURSE ---
Patient haven't void on his own since rosario cath removed yesterday at 11am. Bladder scan revealed 730 ml in bladder. Denies discomfort. Dr Lewis informed, order to indwelling cath. Patient refused. Dr Lewis informed.
[2024-03-05 07:19] VITALS: BP 139/81; PULSE 67; RESP 18; TEMP 36.3; O2SAT 96
[2024-03-05 07:33] LABS: Glucose, Whole Blood 79 mg/dL (60-115)
[2024-03-05] MEDS: Metoprolol Succinate ER 100 MG TAB.ER.24H 200 MG PO (07:43)
[2024-03-05] MEDS: Atorvastatin Calcium 80 MG TABLET PO (07:43)
[2024-03-05] MEDS: Tamsulosin HCL 0.4 MG CAPSULE PO (07:43)
[2024-03-05] MEDS: Finasteride 5 MG TABLET PO (07:44)
[2024-03-05] MEDS: 0.9 % Sodium Chloride Flush 3 ML SYRINGE IVFLUSH ×2 (07:44→21:01)
--- NOTE | 2024-03-05 09:23 | P.PNNP_ITS ---
Subjective Subjective Date of Service: 03/05/24 Interval history: een and examined, events noted Since rosario removed yesterday he has not voided Physical Exam 2 Vital Signs: Vital Signs: Last Vital Signs Temp 97.3 F 03/05/24 07:19 Pulse 67 03/05/24 07:19 Resp 18 03/05/24 07:19 BP 139/81 03/05/24 07:19 Pulse Ox 96 03/05/24 07:19 O2 Del Method Room Air 03/05/24 07:19 BMI result Body Mass Index 25.3 Const: Other: General - no acute distress, appears comfortable Cardiovascular - regular rate and rhythm, S1-S2 Lungs - normal respiratory effort, clear to auscultation bilaterally, no wheezing Abdomen - soft, nontender, no rebound or guarding Extremities - no edema bilaterally Neuro - awake and alert, no focal deficits General: cooperative, healthy appearing, comfortable and no acute distress Nutritional Appearance: cachectic Orientation/consciousness: patient oriented x3 HEENT: Head: Yes normal to inspection, Yes normocephalic and Yes atraumatic Face and sinus: Yes normal facial exam Mouth: moist mucous membranes Eyes: General: appearance normal, both eyes and all related structures C onjunctivae: conjunctivae normal Pupils: Equal, round and reactive pupils present EOM: EOMs intact bilaterally Neck: Neck: Yes normal visual inspection, Yes full ROM, Yes trachea midline, Yes supple and No tender Chest: Chest palpation & inspection: normal inspection of the chest and normal palpation of entire chest wall Resp: Effort & Inspection: normal respiratory effort, able to speak in complete sentences, no cough and no respiratory distress Auscultation: clear to auscultation bilaterally Cardio: Rate: regular rate Rhythm: regular rhythm GI: Inspection: Yes normal to inspection, No Abdominal wall edema and No distended Palpation (GI): Soft to palpation, not firm, nontender, no guarding and not rigid Auscultation: normal bowel sounds : Penis: uncircumcised (phimosis) Back/Spine/Pelvis: Back: No back tenderness Cervical Spine: normal cervical lordosis Thoracic/Lumbar Spine: thoracic and lumbar spine normal to inspection Skin: General skin exam: no rashes or lesions noted Neuro: General: patient oriented x3, tone normal and moves all extremities Cranial nerves: Yes Equal, round and reactive pupils present Motor exam (neuro): 5/5 motor strength present throughout Sensory Exam: No Sensory deficit (Neuro) Extrem: General: Yes normal to inspection and Yes capillary refill normal Psych: Appearance: grossly normal Affect: normal affect Objective Data Labs 03/03/24 06:45 03/04/24 08:30 Labs: Laboratory Results - last 24 hr 03/04/24 03/04/24 03/04/24 08:30 11:31 16:21 Hold Purple Top SEE NOTE Sodium 139 Potassium 4.0 Chloride 100 Carbon Dioxide 31 H Anion Gap 12 BUN 54 H Creatinine 6.10 H* Estim Creat Clear Calc 12.3 Estimated GFR 9 POC Glucose 141 H 109 Random Glucose 102 Calcium 8.4 D 03/04/24 03/05/24 20:42 07:30 Hold Purple Top Sodium Potassium Chloride Carbon Dioxide Anion Gap BUN Creatinine Estim Creat Clear Calc Estimated GFR POC Glucose 130 H 79 Random Glucose Calcium Procedures Date of Service Date of Service: 03/05/24 Assessment & Plan Assessment and plan (1) CRYSTAL (acute kidney injury): Status: Acute (2) Acute hyperkalemia: Status: Acute (3) Incomplete bladder emptying: Status: Acute Plan 68yo M with CAD s/p STEMI 2022 with PCI, CHF, CVA x2, DM2, CKD3 sent in for CRYSTAL/hyperK/metabolic acidosis 1. CRYSTAL: renal func not bouncing back so HD started and will reassess for renal recovery as outpt has outpt HD spot at [facility] ( [phone]) 2. CKD 4 BSL Scr 2.7-3.2 ( 2022) and was 4.5 on 02/2024 at last OV; h/o DN/HTN adv renal dis 3. Nephrogenic Anemia 4. Urianry Retention: urol eval as may need rosario replaced REC: HD tomorrow; urol re-eval; epo as ordered We will monitor him as outpt for renal recovery enough to come off HD Time Spent With Patient Time: Total time managing care of this patient today ____ minutes. Progress Note: Quality Stroke Does the patient have a stroke diagnosis?: No
[2024-03-05 11:05] VITALS: BP 140/78; PULSE 71; RESP 19; TEMP 36.4; O2SAT 100
--- NOTE | 2024-03-05 11:27 | MHC.CM.PN ---
Addendum entered by Yuliana Ybarra RN 03/05/24 15:10: CM CONTACTED [facility] AND THEY WILL MAKE AN EXCEPTION AND START PT ON SUNDAY, PT AWARE OF PLAN. Original Note: EMR REVIEWED, PER NEPHRO NOTE PT HAS SPOT AT [facility] T//SUN, CM CONTACTED SHWETHA BURCIAGA AT [phone] TO CONFIRM START DATE, PATRICA REPORTS PT MAY BE ABLE TO START TOMORROW 03/05 HOWEVER NEED H&P, NEPHRO CONSULT AND PN'S, LABS W/HEP B PANEL, DOCUMENTS FAXED TO [phone], PATRICA REPORTS SHE WILL FOLLOW UP W/CM ONCE SHE KNOWS IF PT WILL BE MEDICALLY APPROVED.
[2024-03-05 11:45] LABS: Glucose, Whole Blood 137 mg/dL (60-115)
[2024-03-05] MEDS: Heparin Sodium,Porcine 5,000 UNIT/ML VIAL 5000 UNIT SUBCUT ×2 (13:23→20:59)
[2024-03-05 15:11] VITALS: BP 137/75; PULSE 72; RESP 19; TEMP 36.3; O2SAT 99
--- NOTE | 2024-03-05 15:48 | P.PNIM_ITS ---
Subjective Subjective Date of Service: 03/05/24 Interval History: Being followed for acute on chronic kidney disease now receiving hemodialysis started on 03/03 Patient offers no acute complaints this morning declining Beth catheter placement, providing history of chronic urinary issues unable to void on demand, feels his bladder needs to be dilated before he can urinate, noted to have elevated bladder scan of 999 agreeable for straight caths only. Denies nausea, no vomiting, no lightheadedness, no dizziness, no fevers. Review of Systems All other system reviewed and are negative. Physical Exam 2 Vital Signs: Vital Signs: Last Vital Signs Temp 97.3 F 03/05/24 15:11 Pulse 72 03/05/24 15:11 Resp 19 03/05/24 15:11 BP 137/75 03/05/24 15:11 Pulse Ox 99 03/05/24 15:11 O2 Del Method Room Air 03/05/24 15:11 BMI result Body Mass Index 25.3 Const: Other: General -awake alert x3, no acute distress No JVD Cardiovascular - regular rate and rhythm, S1-S2 Lungs - normal respiratory effort, clear to auscultation bilaterally, no wheezing Abdomen - soft, non tender, bowel sounds audible, no rebound or guarding Extremities - no edema Neuro - awake and alert, no focal deficits Appropriate affect Objective Data Active Medications Acetaminophen (Acetaminophen 325 Mg Tablet) 650 mg PO Q6H PRN PRN Reason: Pain, Mild (Pain Scale 1-3), fever or headache Atorvastatin Calcium (Atorvastatin Calcium 80 Mg Tablet) 80 mg PO DAILY [facility] Last Admin: 03/05/24 07:43 Dose: 80 mg Documented By: SAMANTHA Calcium Carbonate (Calcium Carbonate 750 Mg Tab.Chew) 750 mg PO Q4H PRN PRN Reason: Heartburn Finasteride (Finasteride 5 Mg Tablet) 5 mg PO DAILY [facility] Last Admin: 03/05/24 07:44 Dose: 5 mg Documented By: SAMANTHA Glucose (Glucose Gel 15 Gm Gel..Gram.) 15 gm PO Q15M PRN; Protocol PRN Reason: per Hypoglycemia Standing Ord. Heparin Sodium (Porcine) (Heparin Sodium,Porcine 5,000 Unit/Ml Vial) 5,000 unit SUBCUT Q12H [facility] Last Admin: 03/05/24 13:23 Dose: 5,000 unit Documented By: SAMANTHA Dextrose (D10) 250 mls @ 750 mls/hr IV Q15M PRN; Protocol PRN Reason: per Hypoglycemia Standing Ord. Insulin Human Lispro (Insulin Lispro 100 Unit/Ml 3 Ml Vial) 0 unit SUBCUT QIDACHS [facility]; Protocol Last Admin: 03/05/24 12:15 Dose: Not Given Documented By: SAMANTHA Non-Admin Reason: No Insulin Coverage Magnesium Hydroxide (Milk Of Magnesia 30 Ml Oral.Susp) 30 ml PO DAILY PRN PRN Reason: Constipation Melatonin (Melatonin 3 Mg Tablet) 6 mg PO BEDTIME PRN PRN Reason: Insomnia Last Admin: 03/01/24 21:06 Dose: 6 mg Documented By: PARAMJIT Metoprolol Succinate (Metoprolol Succinate Er 100 Mg Tab.Er.24h) 200 mg PO DAILY [facility]; Protocol Last Admin: 03/05/24 07:43 Dose: 200 mg Documented By: SAMANTHA Ondansetron HCl (Ondansetron Hcl 4 Mg/2 Ml Vial) 4 mg IVPUSH Q8H PRN PRN Reason: Nausea and Vomiting Sodium Chloride (0.9 % Sodium Chloride Flush 3 Ml Syringe) 3 ml IVFLUSH QSHIFT [facility] Last Admin: 03/05/24 07:44 Dose: 3 ml Documented By: SAMANTHA Tamsulosin HCl (Tamsulosin Hcl 0.4 Mg Capsule) 0.4 mg PO DAILY [facility] Last Admin: 03/05/24 07:43 Dose: 0.4 mg Documented By: SAMANTHA Labs 03/03/24 06:45 03/04/24 08:30 Labs: Laboratory Results - last 24 hr 03/04/24 03/04/24 03/05/24 16:21 20:42 07:30 POC Glucose 109 130 H 79 03/05/24 11:35 POC Glucose 137 H Assessment and Plan (1) CKD (chronic kidney disease): Status: Acute (2) Incomplete bladder emptying: Status: Acute (3) Obstructive uropathy: Status: Acute Plan 68yo M with CAD s/p STEMI 2022 with PCI, CHF, CVA x2, DM2, CKD3 sent in for CRSYTAL/hyperK/metabolic acidosis metabolic acidosis due to CRYSTAL/CKD3 now ESRD permacath placed 03/03, first dialysis same date; Outpatient hemodialysis spot at [place]/dialysis, outpatient can not be started until Sunday. Nephro recommend uro evaluation as may need Beth replaced. Urinary retention Beth catheter was placed on 02/28, but was removed as per patient request. voiding trial given. but patient failed and continued to have elevated bladder scan, 2 nurses attempted Beth catheter placement but failed therefore consulted Urology Dr Nettles, for Beth catheter placement. hyperK - resolved after insulin/Lokelma acute/chronic anemia likely due to CKD, normal iron studies, h/h low, epo per nephro, FOBT pending. CAD/PAD - continue atorvastatin + metoprolol succinate, Plavix and aspirin were held for PermCath placement, will resume. DM2 stable blood sugars, hold MTF, continue charmaine-dose lispro CHF - hold torsemide VTE ppx continue heparin dispo jena home once outpt HD spot arranged, DC bedrest recommend to ambulate as tolerated In my clinical judgment, the patient requires continued inpatient hospitalization for the following reasons: acute dialysis requiring inpatient hemodialysis. Quality Stroke Does the patient have a stroke diagnosis?: No VTE Prior VTE?: No VTE Risk Level:: Medical - moderate - high VTE Device Contraindication: Treatment Not Indicated VTE Drug Contraindication: N/A - Med Ordered
[2024-03-05 16:23] LABS: Glucose, Whole Blood 134 mg/dL (60-115)
[2024-03-05 19:35] VITALS: BP 115/60; PULSE 70; RESP 18; TEMP 36.5; O2SAT 99
[2024-03-05 20:45] LABS: Glucose, Whole Blood 133 mg/dL (60-115)
[2024-03-06] VITALS: BP 122/57; PULSE 67; RESP 18; TEMP 36.6; O2SAT 98
[2024-03-06 03:52] VITALS: BP 130/66; PULSE 63; RESP 18; TEMP 36.3; O2SAT 98
[2024-03-06 07:29] LABS: Glucose, Whole Blood 87 mg/dL (60-115)
[2024-03-06 07:46] VITALS: BP 137/65; PULSE 72; RESP 18; TEMP 36.3; O2SAT 98
[2024-03-06] MEDS: Heparin Sodium,Porcine 5,000 UNIT/ML VIAL 5000 UNIT SUBCUT (09:08)
[2024-03-06] MEDS: 0.9 % Sodium Chloride Flush 3 ML SYRINGE IVFLUSH (09:09)
[2024-03-06] MEDS: Tamsulosin HCL 0.4 MG CAPSULE PO (09:09)
[2024-03-06] MEDS: Clopidogrel Bisulfate 75 MG TABLET PO (09:09)
[2024-03-06] MEDS: Atorvastatin Calcium 80 MG TABLET PO (09:09)
[2024-03-06] MEDS: Aspirin Enteric Coated 81 MG TABLET.DR PO (09:09)
[2024-03-06] MEDS: Finasteride 5 MG TABLET PO (09:09)
[2024-03-06] MEDS: Metoprolol Succinate ER 100 MG TAB.ER.24H 200 MG PO (09:09)
--- NOTE | 2024-03-06 09:28 | PM.PNNEP ---
Subjective Subjective Date of Service: 03/06/24 Interval history: Seen and examined, events noted Physical Exam Vital Signs: Vital Signs: Last Vital Signs Temp 97.4 F 03/06/24 07:46 Pulse 72 03/06/24 07:46 Resp 18 03/06/24 07:46 BP 137/65 03/06/24 07:46 Pulse Ox 98 03/06/24 07:46 O2 Del Method Room Air 03/06/24 07:46 O2 Flow Rate 3 03/06/24 03:52 BMI result Body Mass Index 25.3 Const: Other: General - no acute distress, appears comfortable Cardiovascular - regular rate and rhythm, S1-S2 Lungs - normal respiratory effort, clear to auscultation bilaterally, no wheezing Abdomen - soft, nontender, no rebound or guarding Extremities - no edema bilaterally Neuro - awake and alert, no focal deficits General: cooperative, healthy appearing, comfortable and no acute distress Nutritional Appearance: cachectic Orientation/consciousness: patient oriented x3 HEENT: Head: Yes normal to inspection, Yes normocephalic and Yes atraumatic Face and sinus: Yes normal facial exam Mouth: moist mucous membranes Eyes: General: appearance normal, both eyes and all related structures Conjunctivae: conjunctivae normal Pupils: Equal, round and reactive pupils present EOM: EOMs intact bilaterally Neck: Neck: Yes normal visual inspection, Yes full ROM, Yes trachea midline, Yes supple and No tender Chest: Chest palpation & inspection: normal inspection of the chest and normal palpation of entire chest wall Resp: Effort & Inspection: normal respiratory effort, able to speak in complete sentences, no cough and no respiratory distress Auscultation: clear to auscultation bilaterally Cardio: Rate: regular rate Rhythm: regular rhythm GI: Inspection: Yes normal to inspection, No Abdominal wall edema and No distended Palpation (GI): Soft to palpation, not firm, nontender, no guarding and not rigid Auscultation: normal bowel sounds : Penis: uncircumcised (phimosis) Back/Spine/Pelvis: Back: No back tenderness Cervical Spine: normal cervical lordosis Thoracic/Lumbar Spine: thoracic and lumbar spine normal to inspection Skin: General skin exam: no rashes or lesions noted Neuro: General: patient oriented x3, tone normal and moves all extremities Cranial nerves: Yes Equal, round and reactive pupils present Motor exam (neuro): 5/5 motor strength present throughout Sensory Exam: No Sensory deficit (Neuro) Extrem: General: Yes normal to inspection and Yes capillary refill normal Psych: Appearance: grossly normal Affect: normal affect Objective Data Labs 03/03/24 06:45 03/04/24 08:30 Labs: Laboratory Results - last 24 hr 03/05/24 03/05/24 03/05/24 11:35 16:08 20:30 POC Glucose 137 H 134 H 133 H 03/06/24 07:11 POC Glucose 87 Procedures Date of Service Date of Service: 03/06/24 Assessment & Plan Assessment and plan (1) CRYSTAL (acute kidney injury): Status: Acute (2) Acute hyperkalemia: Status: Acute (3) Incomplete bladder emptying: Status: Acute Plan 68yo M with CAD s/p STEMI 2022 with PCI, CHF, CVA x2, DM2, CKD3 sent in for CRYSTAL/hyperK/metabolic acidosis 1. CRYSTAL: renal func not bouncing back so HD started and will reassess for renal recovery as outpt has outpt HD spot at [facility] ( [phone]) 2. CKD 4 BSL Scr 2.7-3.2 ( 2022) and was 4.5 on 02/2024 at last OV; h/o DN/HTN adv renal dis 3. Nephrogenic Anemia 4. Urianry Retention: urol eval as may need rosario replaced REC: HD tomorrow; urol re-eval; epo as ordered He has HD spot TTS at [facility] 1st shift We will monitor him as outpt for renal recovery enough to come off HD Time Spent With Patient Time: Total time managing care of this patient today ____ minutes. Progress Note: Quality Stroke Does the patient have a stroke diagnosis?: No
--- NOTE | 2024-03-06 11:28 | P.DS_ITS ---
DS: Providers Provider Date of Service: 03/06/24 Date of admission: 02/28/24 21:49 Date of discharge: 03/06/24 Primary care physician: Hilton Pepe MD Consults: 02/28/24 21:49 Consult to Nephrology Routine Consulting Provider: [facility] Reason for consultation: CRYSTAL with met acidosis 02/28/24 22:34 Consult to Urology Routine Consulting Provider: [facility] Reason for consultation: outlet obstruction Attending physician on discharge: Brendon Duarte Discharging clinician: Amanda Hirsch DS: Diagnosis Discharge Diagnosis (1) CRYSTAL (acute kidney injury): Status: Acute (2) Acute hyperkalemia: Status: Acute (3) Incomplete bladder emptying: Status: Acute DS: Summary Hospital Course Hospital Course: From H&P on the day of admission Pt is a 68-year-old male with a PMH significant for CAD, STEMI in 2022 s/p stenting, CHF, CVA x2, non-insulin dependent type 2 diabetes, and CKD 3 who presents to the ED from home after routine outpatient labs came back with significantly elevated creatinine and potassium. Patient states that 1 week ago had pre-physical blood tests drawn that came back showing elevated creatinine above baseline. Patient was then scheduled to see Nephrology at [facility] on Sunday where they stopped his metformin and held his torsemide for 5 days and plan to see him again in 2 weeks' time. Patient had his physical today where follow up blood work was drawn. Patient was then called at home later in the afternoon and notified that his potassium and creatinine were significantly elevated and advised him to go to the ED for further evaluation. Patient reports was ?surprised? by lab results. States he has had decreased energy for the past few months, and noticed that his appetite has been reduced especially in the past 2 weeks where he reports a 10 lb weight loss. Reports has been drinking normally. No acute medical complaints during these past 2 months. Also reports has been urinating normally without any incidents anuria, hesitancy, or dribbling. No fever, chills, nausea, vomiting, diarrhea, abdominal pain. Denies chest pain/pressure, palpitations. Shortness of breath at baseline. Of note, patient has Rosario catheter placement was very difficult and took multiple nursing attempts before success. >800 mls were drained after placement. In the ED pt was hemodynamically stable with vitals largely WNL. Labs were significant for stable normocytic anemia of 9.6/28.7, potassium of 6.6, bicarb 14, BUN 98, creatinine 8.38, and alk-phos 137. VBG showed metabolic acidosis of pH 7.23 with bicarb of 14. UA positive for proteinuria , moderate leukocyte esterase, and wbc's 21-50 with 6-10 epithelial cells and no bacteria seen. CT of abdomen and pelvis pending. EKG demonstrated normal sinus rhythm without evidence of significant ST elevations or depressions. Pt was treated with calcium gluconate, Lokelma, insulin, and started on a bicarb drip. Pt will be admitted to the hospital for treatment and further evaluation of acute metabolic acidosis in the setting of CRYSTAL requiring bicarb drip. metabolic acidosis due to CRYSTAL/CKD3 now ESRD permacath placed 03/03, first dialysis same date [facility] [place] Urinary retention Rosario catheter was placed on 02/28, but was removed as per patient request. voiding trial given patient initially failed and continued to have elevated bladder scan. was started on finasteride. We will need outpatient follow-up with Urology hyperK - resolved after insulin/Lokelma acute/chronic anemia likely due to CKD, normal iron studies, h/h low, epo per nephro. no evidence of acute blood loss. CAD/PAD - continue atorvastatin + metoprolol succinate, Plavix and aspirin were held for PermCath placement, resumed after procedure. DM2 stable blood sugars, continue correction-dose lispro metformin was discontinued one week ago. sugar under adequate control with diabetic diet outpatient follow up with PCP CHF - hold torsemide Time Attestation Discharge Coordination Time (in mins): 40 Quality: Safe Use of Opioids Does Pt have an Active Cancer Diagnosis on the Problem List?: No Quality: Stroke Does the patient have a stroke diagnosis?: No Physical Exam Vital Signs: Vital Signs: Last Vital Signs Temp 97.4 F 03/06/24 07:46 Pulse 72 03/06/24 07:46 Resp 18 03/06/24 07:46 BP 137/65 03/06/24 07:46 Pulse Ox 98 03/06/24 07:46 O2 Del Method Room Air 03/06/24 07:46 O2 Flow Rate 3 03/06/24 03:52 BMI result Body Mass Index 25.3 Const: General: cooperative, comfortable, no acute distress, alert and awake Nutritional Appearance: average body habitus Orientation/consciousness: patient oriented x3 Resp: Effort & Inspection: normal respiratory effort, able to speak in complete sentences, no respiratory distress and no use of accessory muscles Cardio: Rate: regular rate Neuro: General: patient oriented x3 DS: Data Data Completed and Pending Labs on day of discharge: Laboratory Results - last 24 hr 03/05/24 03/05/24 03/05/24 11:35 16:08 20:30 POC Glucose 137 H 134 H 133 H 03/06/24 07:11 POC Glucose 87 Discharge Plan Discharge Anticipated Discharge Date/Time: 03/06/24 15:01 Patient Disposition: Home, Self-Care Discharge Diagnosis: CRYSTAL on CKD Referrals: [facility] [Other] - 1 Week (PLEASE ARRIVE AT 5:15AM EVERY SUNDAY, SUNDAY AND SUNDAY. ) Ced Nettles MD [Physician] - 1 Week Hilton Pepe MD [Primary Care Provider] - 1 Week Romario Vasquez MD [Physician] - 1 Week Discharge Medications: New finasteride 5 mg Tablet 5 mg PO DAILY 90 Days Qty: 90 0RF Continued atorvastatin 80 mg tablet 80 mg PO DAILY metoprolol succinate 200 mg tablet extended release 24 hr 200 mg PO DAILY clopidogrel 75 mg tablet 75 mg PO DAILY tamsulosin 0.4 mg capsule 0.4 mg PO DAILY aspirin 81 mg Tablet,Delayed Release (Dr/Ec) 81 mg PO DAILY Discharge Orders: Discharge Order (Routine); Ordered 03/06/24 Ordered By: Amanda Hirsch Activity on Discharge: As tolerated Stand Alone Forms: Patient Portal Discharge page Print Language: Citizen Of [place] Care Plan Goals: see below Health Concerns: CRYSTAL on CKD3 now ESRD on HD Hyperkalemia. Resolved Metabolic acidosis. Resolved Urinary retention. you have declined rosario catheter placement but will need follow up with urology Plan of Treatment: started on finasteride outpatient follow up with urology outpatient follow-up with Nephrology Hemodialysis on Sunday, , Sunday schedule, starting Thursday 03/08 [facility] 1st shift For diabetes, blood sugar has been controlled. Follow a diabetic diet. Monitor blood sugar, call to schedule follow-up appointment with PCP Assessment: see discharge summary
[2024-03-06 11:58] LABS: Glucose, Whole Blood 127 mg/dL (60-115)
[2024-03-06 12:00] VITALS: BP 122/67; PULSE 61; RESP 17; TEMP 36.2; O2SAT 96
[2024-03-06 16:13] LABS: Glucose, Whole Blood 136 mg/dL (60-115)
--- NOTE | 2024-03-06 16:15 | MHC.CM.PN ---
PT MEDICALLY CLEARED FOR DC HOME SELF-CARE W/NEW OUPT HD AT [facility], PT AWARE HE WILL START THIS SUNDAY AT 5:15AM (DETAILS IN DC PACKET), FAMILY FOR TRANSPORT
== END 2024-03-06 17:34 | disposition home or self-care (01) | DRG 674 ==
LOC: HO.ED 20:51 → HO.EDOVER 22:41 → HO.IMC 03-01 00:39
PROVIDERS: Family Medicine; Hospitalist; Internal Medicine Nephrology; Physician Assistant; Physician Assistant Medical; Physician Assistant Surgical; Admitting Provider Student in an Organized Health Care Education/Training Program; Emergency Provider Emergency Medicine; PCP Internal Medicine; Visit Provider Physician Assistant Medical
DX: N17.9 Acute kidney failure, unspecified (principal); E87.20 Acidosis, unspecified; E87.5 Hyperkalemia; N18.4 Chronic kidney disease, stage 4 (severe); R33.9 Retention of urine, unspecified; E11.51 Type 2 diabetes mellitus with diabetic peripheral angiopathy without gangrene; E11.22 Type 2 diabetes mellitus with diabetic chronic kidney disease; D63.1 Anemia in chronic kidney disease; I50.9 Heart failure, unspecified; I25.10 Atherosclerotic heart disease of native coronary artery without angina pectoris; Z95.5 Presence of coronary angioplasty implant and graft; Z79.82 Long term (current) use of aspirin; Z79.02 Long term (current) use of antithrombotics/antiplatelets; Z79.899 Other long term (current) drug therapy
CPT/HCPCS: 36415; 36558; 74176; 76937; 80048; 80053; 81001; 82728; 82803; 82947; 83540; 83735; 85014; 85018; 85025; 85027; 85610; 85730; 86704; 86706; 86850; 86900; 86901; 86923; 87086; 87340; 90999; 93005; 99285; C1750; C1758; C1769; J0613; J1644; P9016

== ENCOUNTER 2024-02-28 21:49 | Outpatient (BNV) | payer MEDICARE, SELFPAY | END 2024-03-03 09:45 | PROVIDERS: Admitting Provider Student in an Organized Health Care Education/Training Program; Emergency Provider Emergency Medicine; PCP Internal Medicine; Visit Provider Student in an Organized Health Care Education/Training Program | DX: N18.6 End stage renal disease (principal) | CPT/HCPCS: 36558; 76937 ==

== ENCOUNTER → 2024-02-28 21:49 | Outpatient (BNV) | payer MEDICARE, SELFPAY | PROVIDERS: Admitting Provider Student in an Organized Health Care Education/Training Program; Emergency Provider Emergency Medicine; PCP Internal Medicine; Visit Provider Urology | DX: R33.9 Retention of urine, unspecified (principal); N17.9 Acute kidney failure, unspecified; N18.9 Chronic kidney disease, unspecified; N13.9 Obstructive and reflux uropathy, unspecified | CPT/HCPCS: 99222; 99499 ==

== ENCOUNTER → 2024-02-28 21:49 | Outpatient (BNV) | payer MEDICARE, SELFPAY | PROVIDERS: Admitting Provider Student in an Organized Health Care Education/Training Program; Emergency Provider Emergency Medicine; PCP Internal Medicine; Visit Provider Student in an Organized Health Care Education/Training Program | DX: N17.9 Acute kidney failure, unspecified (principal); N18.6 End stage renal disease; E87.5 Hyperkalemia; R33.9 Retention of urine, unspecified | CPT/HCPCS: 99223; 99232; 99233; 99239 ==

== ENCOUNTER → 2024-04-02 08:15 | Outpatient (BNVA) | payer MEDICARE, SELFPAY | PROVIDERS: PCP Internal Medicine; Visit Provider Urology | DX: R33.9 Retention of urine, unspecified (principal) | CPT/HCPCS: 51798 ==

== ENCOUNTER 2024-04-16 22:10 | Inpatient (IN) | payer MEDICARE, SELFPAY ==
[2024-04-16] VITALS (7 sets, daily range): BP systolic 81–153; BP diastolic 49–87; PULSE 94–127; RESP 16–20; TEMP 39.2–40; O2SAT 96–99; BMI 24.9
--- NOTE | ~2024-04-16 | XR_ITS ---
EXAMINATION: XR HAND, LEFT CLINICAL INFORMATION: Middle finger wound COMPARISON: None available. TECHNIQUE: PA, lateral, and oblique views of the left hand. FINDINGS: Amputation of the distal middle finger including the tuft of the distal phalanx with cortical irregularity/erosion which could represent osteomyelitis. 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 Prominent vascular calcifications. XR/XR hand LT 2V IMPRESSION: Amputation of the distal middle finger including the tuft of the distal phalanx with cortical irregularity/erosion which could represent osteomyelitis. Electronically signed by: Dennys Palacios MD 04/18/2024 04:27 PM EDT
--- NOTE | ~2024-04-16 | IR_ITS ---
CLINICAL HISTORY: End-stage renal disease. The patient presents to interventional radiology for placement of a tunneled central venous catheter for hemodialysis. PROCEDURES: 1. Real-time ultrasound-guided access into the right internal jugular vein after documentation of selected vessel patency, and permanent imaging storing in the patient record. 2. Placement of a 14.5 fr 27 cm tunneled, dual-lumen hemodialysis catheter. Clinician: Haseeb Abreu PA-C MEDICATIONS: -Fentanyl 25 mcg, Lidocaine 1% 10 mL SQ. -Antibiotics: None -For additional details, please see nursing flowsheet. COMPLICATIONS: None. ESTIMATED BLOOD LOSS: <5 ml SPECIMENS: None FLUOROSCOPY TIME: 0.7 min PROCEDURE NOTE: The procedure, risks, benefits, and alternatives were carefully explained to patient, and written informed consent was obtained. The patient was placed supine on the fluoroscopy table. A timeout was performed. The right neck and chest was prepped and draped in usual sterile fashion. Local anesthesia was administered to the access site with lidocaine. Under ultrasound guidance, the right internal jugular vein was accessed with a 5 Fr micropuncture set. A 0.035 in wire was advanced to the IVC to maintain access during the tunneling process. Next, subcutaneous lidocaine was administered to the chest. Using blunt dissection, a subcutaneous tunnel was created that connects from the upper chest to the venotomy site. The dialysis catheter was pulled through the tunnel. The tract in the vein was dilated and a peel-away sheath was advanced over the wire. The catheter was advanced through the sheath, which was subsequently peeled away. The catheter was tested, flushed, and sutured to the skin with its tip in the high right atrium. A permanent fluoroscopic image of the chest was saved to PACS. The catheter ports were packed with heparin per routine protocol. The patient was stable after the procedure and was transferred back to the medical floor. FINDINGS: 1. Patent right internal jugular vein. 2. Placement of a tunneled, dual-lumen hemodialysis catheter as above. 3. Catheter flushes and aspirates very well with a 10 mL syringe. No pneumothorax. IR/IR cvc insert central tunnel IMPRESSION: Placement of a tunneled hemodialysis catheter in the right internal jugular vein. PLAN: -The catheter may be used immediately. This procedure was performed by Haseeb Abreu PA-C, and directly supervised by Dr. Manrique. Electronically signed by: Shree Gutierrez MD 05/05/2024 02:33 PM EDT RP
--- NOTE | ~2024-04-16 | XR_ITS ---
EXAMINATION: XR CHEST CLINICAL INFORMATION: Upper respiratory infection symptoms, weakness COMPARISON: None available. TECHNIQUE: Frontal view of the chest was obtained. FINDINGS: Lung clear. No focal airspace consolidation. Cardiac silhouette within normal limits. Tunneled hemodialysis catheter tip terminates in the proximal right atrium. No pleural effusion or pneumothorax. Severe right shoulder osteoarthritis. XR/XR chest 1V IMPRESSION: No acute cardiopulmonary process. Electronically signed by: Sohail Duarte DO 04/17/2024 12:15 AM EDT
--- NOTE | ~2024-04-16 | IR_ITS ---
Permacath removal Patient presents with a tunneled dialysis catheter. Patient no longer requires dialysis. Referring physician requests removal. The right chest was prepped and draped in routine sterile fashion. 1% lidocaine was used for local anesthesia. Using blunt dissection, the tunneled dialysis catheter was removed from the chest wall without complication. After hemostasis was obtained, a dry sterile dressing was applied. Patient tolerated the procedure well. IR/IR cvc remov tunnel wo prt/lead clinical research coordinator Impression: Permacath removal This procedure was performed by Haseeb Abreu PA-C and supervised by Randall persaud M.D. Electronically signed by: Randall Persaud MD 06/12/2024 01:21 PM [facility] [place]
--- NOTE | ~2024-04-16 | US_ITS ---
EXAMINATION: US ABDOMEN COMPLETE CLINICAL INFORMATION: Transaminitis. COMPARISON: Most recent CT abdomen/pelvis dated 02/28/2024. TECHNIQUE: Real-time imaging of the abdominal viscera. FINDINGS: PANCREAS: Not seen due to overlying bowel gas. ABDOMINAL AORTA: The proximal aorta is unremarkable without dilatation. The mid and distal aorta are not well seen. INFERIOR VENA CAVA: Unremarkable proximal inferior vena cava. Mid and distal inferior vena cava not well seen. LIVER: Partially visualized and grossly unremarkable. No visualized intrahepatic ductal dilatation or pancreatic lesion. GALLBLADDER: Layering sludge versus stones within the gallbladder lumen. No wall thickening or pericholecystic free fluid to suggest acute cholecystitis. COMMON BILE DUCT: Normal in caliber measuring 0.5 cm in diameter. RIGHT KIDNEY: Increased renal parenchymal echogenicity. No hydronephrosis. No renal calculi or focal parenchymal lesions. The kidney measures 10.7 cm in maximum dimension. LEFT KIDNEY: Increased renal parenchymal echogenicity. No hydronephrosis. No renal calculi. Simple right upper pole cyst measuring 0.9 cm. Findings are not clinically significant and no dedicated follow-up imaging is recommended. The kidney measures 8.8 cm in maximum dimension. SPLEEN: Unremarkable. The spleen measures 11.8 cm in maximum dimension. FREE FLUID: None. BLADDER: Distended urinary bladder with a bladder volume of 1419.36 mL. No wall thickening or associated mass. US/US abdomen complete IMPRESSION: 1. Increased renal parenchymal echogenicity, which can be seen in the setting of medical renal disease. No hydronephrosis or nephrolithiasis. 2. Cholelithiasis without evidence of acute cholecystitis. 3. Distended urinary bladder with a volume of 1419.36 mL. No wall thickening or associated mass. Electronically signed by: Richard Prince MD 04/17/2024 08:46 PM EDT
--- NOTE | ~2024-04-16 | CT_ITS ---
EXAMINATION: CT CHEST WITHOUT CONTRAST CLINICAL INFORMATION: Fever. Cough. COMPARISON: Chest radiograph 04/16/2024. TECHNIQUE: Multidetector volumetric CT imaging of the chest was done. Axial MIP volume rendering provided. Sagittal and coronal reformatted images were obtained. This CT examination was performed using dose optimization techniques as appropriate, variously including the following: *Automated exposure control *Adjustment of mA and/or kV according to patient size (this includes techniques or standardized protocols for targeted exams where dose is matched to indication/reason for exam; i.e. extremities or head) *Use of iterative reconstruction technique DLP: 419 mGy-cm FINDINGS: LUNGS: No pulmonary consolidation identified. No endobronchial lesions or peribronchial wall thickening noted. A small number of punctate calcified pulmonary nodules are noted in the most suspicious for chronic calcified granulomas. These findings are benign in appearance and warrant no additional imaging follow-up. MEDIASTINUM: Scattered aortic calcific atherosclerosis. Partial visualization of a stent in the region of the left anterior descending coronary artery. Partial visualization of marked diffuse coronary artery calcific atherosclerosis. Normal heart size. No pericardial thickening or fluid collections noted. Conspicuous visualization of the margins of the aorta suggesting low hematocrit within the aortic blood pool. CORONARY ARTERY CALCIFICATION: Marked diffuse coronary calcific atherosclerosis PLEURA: There is no pleural effusion. No pleural mass or thickening. AXILLA: No lymphadenopathy. UPPER ABDOMEN: Scattered punctate calcifications within the liver and spleen which may represent calcified pulmonary granulomas. OSSEOUS STRUCTURES: Multilevel anterior bridging endplate osteophytosis consistent with diffuse hepatic skeletal hyperostosis is noted. CT/CT chest wo IV con IMPRESSION: *No acute pulmonary abnormalities identified. No evidence of pneumonia or active pulmonary edema. *Marked diffuse coronary artery calcific atherosclerosis. *Diffuse low density of the visualized blood pool. Findings are suspicious for anemia. Electronically signed by: Ranjit Lugo MD 04/17/2024 01:35 AM EDT
--- NOTE | ~2024-04-16 | CT_ITS ---
EXAMINATION: CT HEAD WITHOUT CONTRAST CLINICAL INFORMATION: Altered mental status COMPARISON: None available. TECHNIQUE: Contiguous axial imaging was performed from the skull base to vertex without intravenous administration of contrast. This CT examination was performed using dose optimization techniques as appropriate, variously including the following: *Automated exposure control *Adjustment of mA and/or kV according to patient size (this includes techniques or standardized protocols for targeted exams where dose is matched to indication/reason for exam; i.e. extremities or head) *Use of iterative reconstruction technique DLP: 682 mGy-cm FINDINGS: Moderate diffuse symmetric prominence of ventricles and sulci. No intracranial hemorrhage, tumors or acute infarcts identified. Bilateral ocular lens replacements noted. No significant opacification of the visualized paranasal sinuses, mastoid air cells and middle ear cavities. Segmental calcific atherosclerosis of the cavernous portions of the internal carotid arteries and focal calcific plaques within the proximal intradural segments of the vertebral arteries. Mild patchy periventricular and subcortical white matter hypodensities. CT/CT head/brain wo IV con IMPRESSION: No acute intracranial abnormalities. Mild chronic microangiopathic ischemic disease. Intracranial atherosclerosis. Electronically signed by: Ranjit Lugo MD 04/17/2024 01:38 AM EDT
--- NOTE | 2024-04-16 22:20 | ECG_ITS ---
Test Reason : WEKANESS/FALL Blood Pressure : / mmHG Vent. Rate : 124 BPM Atrial Rate : 124 BPM P-R Int : 176 ms QRS Dur : 120 ms QT Int : 310 ms P-R-T Axes : -06 035 096 degrees QTc Int : 445 ms Sinus tachycardia Cannot rule out Anterior infarct (cited on or before 03-AUG-2022) ST & T wave abnormality, consider lateral ischemia Abnormal ECG When compared with ECG of 28-FEB-2024 18:10, Vent. rate has increased BY [address] now depressed in Lateral leads Referred By: Belle Mcintyre Electronically Signed By:YADIRA SMITH MD
--- NOTE | 2024-04-16 22:21 | ED.GENADULT ---
HPI - General Adult General Chief complaint: Fall Stated complaint: fell from recliner when transfer to wheelchair Time Seen by Provider: 04/16/24 22:13 Source: patient and EMS Mode of arrival: EMS Limitations: no limitations History of Present Illness ED Provider: Dr. Belle Mcintyre HPI narrative: Patient comes to the emergency room via EMS. According to the patient, he has been more weak than usual for the last 2-3 days, coughing more than usual. Patient states that he was trying to transfer from chair to chair to go up to the bathroom. However, patient was too weak and fell. Patient states that it was not an actual fall, it was more like sliding down. Patient denies hitting his head or losing consciousness, patient denies pain anywhere. Patient states it was a very soft controlled landing on the floor. Patient states that he is due for dialysis tomorrow. Patient went to dialysis yesterday. Patient denies chest pain or shortness of breath. The abdominal pain, denies hematuria or dysuria when he urinated prior to arrival to the ED Related Data Home Medications ?Medication ?Instructions ?Recorded ?Confirmed atorvastatin 80 mg tablet 80 mg PO DAILY 02/28/24 02/29/24 clopidogrel 75 mg tablet 75 mg PO DAILY 02/28/24 02/29/24 metoprolol succinate 200 mg 200 mg PO DAILY 02/28/24 02/29/24 tablet,extended release 24 hr tamsulosin 0.4 mg capsule 0.4 mg PO DAILY 02/28/24 02/29/24 aspirin 81 mg tablet,delayed 81 mg PO DAILY 02/29/24 02/29/24 release Previous Rx's ?Medication ?Instructions ?Recorded finasteride 5 mg tablet 5 mg PO DAILY 90 days #90 tabs 04/02/24 Allergies Allergy/AdvReac Type Severity Reaction Status Date / Time No Known Allergies Allergy Verified 04/16/24 22:24 Review of Systems Review of Systems: Constitutional : No Weight loss, No Fever, No Chills, No Night Sweats, complaining of fatigue and weakness ENT/Mouth : No Hearing loss, No Ear Pain, No Nasal Congestion, No Sinus Pain, No Hoarseness, No sore throat, No Rhinorrhea, No Swallowing Difficulty Eyes: No Eye Pain, No Swelling, No Redness, No Foreign Body, No Discharge, No Vision Changes Cardiovascular : No Chest Pain, No SOB, No Dyspnea on Exertion, No Orthopnea, No Edema, No Palpitations Respiratory : No Cough, No Sputum, No Wheezing, No Smoke Exposure, No Dyspnea Gastrointestinal : No Nausea, No Vomiting, No Diarrhea, No Constipation, No abdominal Pain, No Hematochezia, No Melena Genitourinary : no irregular bleeding, No Dysuria, No Urinary Frequency, No Hematuria, No Urinary Incontinence, No Urgency, No Flank Pain, No Urinary Flow Changes, No Hesitancy Musculoskeletal : No joint pain, No Myalgias, No Joint Swelling Skin : No Skin Lesions, No rash Neuro : No Weakness, No Numbness, No Paresthesias, No Loss of Consciousness, No Dizziness, No Headache Psych : No Anxiety/Panic, No Depression, No SI/HI/AH/VH, No Social Issues, Heme/Lymph: No Bruising, No Bleeding,No Lymphadenopathy Endocrine : No Polyuria, No Polydipsia, No Temperature Intolerance [facility] Past Medical History Medical History Non-insulin dependent type 2 diabetes mellitus CKD (chronic kidney disease) stage 3, GFR 30-59 ml/min Heart failure Hyperlipidemia STEMI (ST elevation myocardial infarction) CAD (coronary artery disease) CVA (cerebral vascular accident) Social History Social History Household Members: Spouse and Children Household Members Other:: and daughter Housing: House Do you presently have visiting nurse or other home services: No Patient Tobacco Use Status: Never used Tobacco Smoked in Last 30 Days: No Second Hand Smoke Exposure: No Use of substances other than those prescribed or required for medical reasons: No Advance Directives: Yes Advance Directives on File: Yes Advance Directives Date on File: 02/29/24 Do you have a plan to hurt others: No Plan service: No Physical Exam ED Vital Signs: Vital Signs - 24 hr 04/16/24 22:13 04/16/24 22:56 04/16/24 23:39 Temperature 104.0 F H 102.9 F H Pulse Rate 127 H 123 H 109 H Respiratory Rate 20 16 18 Blood Pressure 153/87 H 151/87 H 82/50 L Pulse Oximetry 99 97 97 Oxygen Delivery Method Room Air Room Air Room Air 04/16/24 23:49 04/16/24 23:51 04/16/24 23:52 Temperature 102.7 F H 102.6 F H 102.6 F H Pulse Rate 99 96 96 Respiratory Rate 18 18 18 Blood Pressure 86/49 L 83/51 L 85/49 L Pulse Oximetry 97 97 98 Oxygen Delivery Method Room Air Room Air Room Air 04/16/24 23:57 04/17/24 00:01 04/17/24 00:21 Temperature 102.6 F H 102.6 F H 102.6 F H Pulse Rate 94 92 85 Respiratory Rate 18 14 16 Blood Pressure 81/49 L 82/48 L 82/48 L Pulse Oximetry 96 99 98 Oxygen Delivery Method Room Air Room Air Room Air 04/17/24 00:26 04/17/24 01:08 04/17/24 01:14 Temperature Pulse Rate 86 80 80 Respiratory Rate 16 Blood Pressure 86/48 L 82/46 L 78/47 L Pulse Oximetry 97 Oxygen Delivery Method Room Air 04/17/24 01:16 04/17/24 01:19 04/17/24 01:25 Temperature 100.0 F Pulse Rate 80 75 78 Respiratory Rate 15 Blood Pressure 78/47 L 93/54 L 106/60 Pulse Oximetry 98 Oxygen Delivery Method Room Air 04/17/24 01:30 04/17/24 01:35 04/17/24 01:40 Temperature Pulse Rate 76 76 76 Respiratory Rate Blood Pressure 110/60 114/54 L 131/62 Pulse Oximetry Oxygen Delivery Method 04/17/24 01:44 04/17/24 01:50 04/17/24 01:54 Temperature Pulse Rate 80 74 74 Respiratory Rate Blood Pressure 110/59 L 117/61 119/60 Pulse Oximetry Oxygen Delivery Method 04/17/24 02:00 04/17/24 02:05 04/17/24 02:09 Temperature Pulse Rate 73 74 75 Respiratory Rate Blood Pressure 105/54 L 108/55 L 99/57 L Pulse Oximetry Oxygen Delivery Method 04/17/24 02:15 04/17/24 02:20 04/17/24 02:25 Temperature Pulse Rate 78 81 83 Respiratory Rate Blood Pressure 115/59 L 126/61 125/59 L Pulse Oximetry Oxygen Delivery Method 04/17/24 02:29 04/17/24 02:35 04/17/24 02:40 Temperature Pulse Rate 78 81 77 Respiratory Rate Blood Pressure 136/71 138/71 136/69 Pulse Oximetry Oxygen Delivery Method 04/17/24 02:40 04/17/24 02:44 04/17/24 02:50 Temperature 98.6 F Pulse Rate 76 78 79 Respiratory Rate 17 Blood Pressure 136/69 128/72 131/68 Pulse Oximetry 98 Oxygen Delivery Method Room Air 04/17/24 02:56 04/17/24 03:00 04/17/24 03:05 Temperature Pulse Rate 75 84 86 Respiratory Rate Blood Pressure 122/68 131/67 126/74 Pulse Oximetry Oxygen Delivery Method 04/17/24 03:10 04/17/24 03:15 04/17/24 03:20 Temperature Pulse Rate 76 83 81 Respiratory Rate Blood Pressure 131/70 137/66 129/73 Pulse Oximetry Oxygen Delivery Method 04/17/24 03:25 04/17/24 03:30 04/17/24 03:35 Temperature Pulse Rate 81 79 78 Respiratory Rate Blood Pressure 130/68 131/71 125/67 Pulse Oximetry Oxygen Delivery Method 04/17/24 03:40 04/17/24 03:45 04/17/24 03:51 Temperature Pulse Rate 78 78 78 Respiratory Rate Blood Pressure 128/69 126/68 127/68 Pulse Oximetry Oxygen Delivery Method 04/17/24 03:55 04/17/24 04:00 04/17/24 04:05 Temperature Pulse Rate 78 79 79 Respiratory Rate Blood Pressure 126/69 119/66 125/67 Pulse Oximetry Oxygen Delivery Method 04/17/24 04:10 04/17/24 04:15 04/17/24 04:20 Temperature Pulse Rate 78 78 78 Respiratory Rate Blood Pressure 126/70 128/70 120/67 Pulse Oximetry Oxygen Delivery Method 04/17/24 04:25 04/17/24 04:30 04/17/24 04:35 Temperature Pulse Rate 77 77 77 Respiratory Rate Blood Pressure 130/70 130/70 131/71 Pulse Oximetry Oxygen Delivery Method 04/17/24 04:40 04/17/24 04:45 04/17/24 04:50 Temperature Pulse Rate 77 77 75 Respiratory Rate Blood Pressure 127/69 130/72 121/64 Pulse Oximetry Oxygen Delivery Method 04/17/24 04:59 04/17/24 05:04 04/17/24 05:10 Temperature Pulse Rate 75 75 75 Respiratory Rate Blood Pressure 103/58 L 98/55 L 95/53 L Pulse Oximetry Oxygen Delivery Method 04/17/24 05:15 04/17/24 05:20 04/17/24 05:25 Temperature Pulse Rate 75 75 78 Respiratory Rate Blood Pressure 91/52 L 111/58 L 110/60 Pulse Oximetry Oxygen Delivery Method 04/17/24 05:30 04/17/24 05:35 04/17/24 05:49 Temperature 97.7 F Pulse Rate 75 75 72 Respiratory Rate 15 Blood Pressure 113/64 116/64 102/58 L Pulse Oximetry 94 Oxygen Delivery Method Room Air 04/17/24 05:54 04/17/24 05:55 04/17/24 06:17 Temperature 97.7 F 98.7 F Pulse Rate 72 74 72 Respiratory Rate 14 12 Blood Pressure 109/61 109/61 116/47 L Pulse Oximetry 94 98 Oxygen Delivery Method Room Air Room Air BMI result Body Mass Index 24.9 Const Other: Appearance: Alert. Oriented X3. No acute distress. Eyes: Pupils equal, round and reactive to light. ENT: Pharynx normal. Neck: Normal inspection. Neck supple. No lymph nodes noted. No crepitus CVS: Tachycardic, heart rate in the 120s. Pulses normal. Normal S1 and S2 Respiratory: No respiratory distress. Breath sounds normal. No Wheezing. No rales Abdomen: Soft and nontender. No rigidity. No distention. Skin: Skin warm and dry. Normal skin color. Normal skin turgor. Extremities: No lower extremity edema. No Lacerations. No Rash Neuro: Oriented X 3. No motor deficit. No sensory deficit. Moving all extremities. No slurred speech. CN 2 through 12 grossly intact Psych: calm, cooperative, normal affect Course Course Course Narrative: Patient has just been triage. I was informed that the patient's heart rate is in the 120s and has a fever of 104.0 F rectally -patient states that he has been coughing for a few days, feeling weak. Patient denies chest pain or shortness of breath, patient states that he still produces urine but he might not be able to give us urine since he urinated prior to coming to the hospital, that is how he ended up falling, trying to get up to go to the bathroom. -at this time, blood pressure is holding well in the 150s systolic. -at this time, 22:30, sepsis is not suspected. Patient will be given only 1 L of normal saline and levofloxacin to cover both, UTI which we may not be able to obtain urine to sent to the lab versus viral respiratory infection versus pneumonia. Acetaminophen was also given p.o. -I reviewed patient's previous ED visits. Patient's PCP reported that patient's ejection fraction is 10%. At this time as mentioned above, there is no need for an IV fluid bolus of 30 mL/kilogram. But patient can not tolerate that much fluid. Patient has significant CHF and has difficulty producing urine. -all of patient's labs and imaging pending Medications Administered Generic Name Dose Route Start Last Admin Trade Name Freq PRN Reason Stop Dose Admin Norepinephrine Bitartrate 8 mg in 250 mls @ 0 mls/hr 04/17/24 01:15 04/17/24 05:55 Levophed IVCONT 0.05 mcg/kg/min .Q0M KALA 7.81 mls/hr Titration Protocol Per Protocol Discontinued Medications Generic Name Dose Route Start Last Admin Trade Name Freq PRN Reason Stop Dose Admin Acetaminophen 975 mg 04/16/24 22:29 04/16/24 22:52 Acetaminophen 325 Mg Tablet PO 04/16/24 22:30 975 mg ONCE ONE Administration Sodium Chloride 1,000 mls @ 999 mls/hr 04/16/24 22:28 04/16/24 23:55 Ns IVCONT 04/16/24 23:28 Infused .Q1H1M ONE Infusion Levofloxacin 500 mg in 100 mls @ 100 mls/hr 04/16/24 22:28 04/16/24 23:55 Levaquin IV 04/16/24 23:27 Infused ONCE ONE Infusion Vancomycin HCl 2,000 mg in 500 mls @ 250 mls/hr 04/17/24 01:25 04/17/24 04:10 Vancomycin/Ns IV 04/17/24 03:24 Infused ONCE ONE Infusion Piperacillin Sod/Tazobactam 50 mls @ 100 mls/hr 04/17/24 01:25 04/17/24 02:03 Sod 3.375 gm/ Sodium Chloride IV 04/17/24 01:54 Infused ONCE ONE Infusion Albumin Human 100 mls @ 133.333 mls/hr 04/17/24 01:30 04/17/24 03:33 Kedbumin 25 % IV 04/17/24 03:14 Infused Q1H KALA Infusion Medical Decision Making Medical Decision Making [facility] Narrative: My interpretation of labs, white blood cell count 10.4, patient is chronically anemic, better than baseline, hemoglobin 9.2, hematocrit 27.7. Chemistry shows sodium of 132, BUN 67, creatinine 6.63 which is chronic for the patient, lactic acid 1.5. Troponin is 217 but patient has history of CHF and is on dialysis, troponin at baseline for the patient, no chest pain. RSV negative, influenza and COVID. -my interpretation of chest x-ray, no obvious abnormality. -CT scan of the chest does not show any obvious abnormality. Head CT, no intracranial bleed or mass effect -urinalysis has not been obtained, unlikely to get any urine sample until tomorrow due to patient's renal function -patient's blood pressure dropped to the 80s. As mentioned above, patient has significant CHF, giving him anymore fluids would cause him to going to fall heart failure. Patient has been started on Levophed. -patient has no abdominal pain at all. -a lumbar puncture was considered. However, patient is awake, alert and oriented x3, answering questions appropriately, no altered mental status. Patient has no headache. -other possible source, infection from the dialysis line? -empirically patient being covered with vancomycin and Zosyn. -at 04:00, we attempted weaning the patient off Levophed. However, patient's blood pressure decreased to the low 90s, map less than 65. -patient was restarted on Levophed. Patient will need to go to the ICU -I discussed the patient with Dr. Schaffer, per nursing varnish supervisor, there is an nurse available for the ICU at 07:00. -patient accepted to the ICU Differential Diagnosis Differential Diagnoses: The differential diagnosis associated with the presentation includes (Pneumonia, viral illness, UTI) Admission/Observation Consideration of admission/observation: Escalation of care including admission/observation considered Consult Healthcare Provider Management of the patient was discussed with: Hospitalist Lab Data [facility] Lab Attestation statement: I reviewed the patient's lab results. 04/16/24 22:39 04/16/24 22:39 Labs: Lab Results 04/16/24 04/16/24 Range/Units 22:39 22:43 WBC 10.4 (4.8-10.8) X10*3/uL RBC 3.01 L (4.60-5.80) X10*6/uL Hgb 9.2 L D (14.0-18.0) g/dl Hct 27.7 L D (42.0-52.0) % MCV 92.0 (80.0-98.0) fL MCH 30.6 (27.0-33.0) pg MCHC 33.2 (31.0-36.0) g/dl RDW 15.2 (11.0-16.0) % Plt Count 107 L (160-400) X10*3/uL MPV 11.3 (9.4-12.4) fL Immature Gran % (Auto) 0.5 H (0.0-0.4) % Neut % (Auto) 78.8 H (45-73) % Lymph % (Auto) 16.0 L (20-40) % [place] % (Auto) 4.5 (2-11) % Eos % (Auto) 0.0 (0-4) % Baso % (Auto) 0.2 (0-2) % Lymph # (Auto) 1.7 (1.2-4.9) X10*3/uL [place] # (Auto) 0.5 (0.1-1.2) X10*3/uL Eos # (Auto) 0.0 (0.0-0.4) X10*3/uL Baso # (Auto) 0.0 (0.0-0.2) X10*3/uL Abs Immat Gran (auto) 0.05 H (0.00-0.03) X10*3/uL Absolute Neuts (auto) 8.2 (2.0-8.3) x10*3/uL Absolute Nucleated RBC 0.000 (0.0-0.012) X10*3/uL Nucleated RBC % (auto) 0.0 (0.0-0.2) /100WBC PT 13.0 H (10.9-12.4) SEC INR 1.1 (0.9-1.1) Sodium 132 L (135-145) mmol/L Potassium 4.9 D (3.3-5.1) mmol/L Chloride 99 (96-108) mmol/L Carbon Dioxide 20 L (22-29) mmol/L Anion Gap 18 (12-20) BUN 67 H (9-16) mg/dL Creatinine 6.63 H* (0.5-1.4) mg/dL Estim Creat Clear Calc 11.3 Estimated GFR 8 Random Glucose 198 H (60-115) mg/dL Lactic Acid 1.5 (0.5-2.0) mmol/L Calcium 9.0 D (8.4-10.2) mg/dL Magnesium 1.9 (1.6-2.6) mg/dL Total Bilirubin 0.8 (0.0-1.0) mg/dL Direct Bilirubin 0.2 (0.0-0.5) mg/dL AST 119 H (5-37) U/L ALT 105 H (0-40) U/L Alkaline Phosphatase 108 (39-117) U/L Troponin I High Sens 216.8 H* D (<3.5-35.0) ng/L Total Protein 7.1 (6.5-8.0) g/dL Albumin 3.8 (3.5-5.0) g/dL TSH 1.15 (0.32-4.0) uIU/mL Ethyl Alcohol < 10 mg/dL Influenza Type A (PCR) NEGATIVE (Negative) Influenza Type B (PCR) NEGATIVE (Negative) RSV RNA Qual (PCR) NEGATIVE (Negative) SARS-CoV-2 RNA (RT-PCR) NEGATIVE (Negative) Independent Interpretation I performed an independent interpretation of an: Plain X-Ray and CT Scan Interpretation: Lung clear. No focal airspace consolidation. Cardiac silhouette within normal limits. Tunneled hemodialysis catheter tip terminates in the proximal right atrium. No pleural effusion or pneumothorax. Severe right shoulder osteoarthritis. XR/XR chest 1V IMPRESSION: No acute cardiopulmonary process. Radiology Impression Discussion of test interpretation with radiology: I have reviewed the radiologist's reading. Critical Care Time Critical Care Time Critical Care Time: Yes Total Critical Care Time: 75 Attestation: I have personally provided critical care time. Time includes review of lab data, radiology results, discussion with consultants, and monitoring for potential decompensation. Intervention performed as documented. Discharge Plan Discharge Clinical Impression: Weakness, Fever, Hypotension Patient Disposition: Admitted As Inpatient
--- NOTE | 2024-04-16 22:44 | PC.NURSE ---
pt biba from home, a&ox4,respirations even and unlabored. pt reporting fall from recliner when going to the bathroom and coming back to chair. pt denies pain at this time, c collar in place on arrival, removed by . pt noted to feel warm to touch, rectal temp taken, 104.0, aware of pt meeting sepsis criteria, per , not septic at this time. 20G placed in left hand by ems. labs obtained and sent to lab. pt afib on tele 120-134.
[2024-04-16 22:46] LABS: MANUAL DIFF FLAG NO
[2024-04-16] MEDS: 0.9 % Sodium Chloride 1,000 ML 999 ML IVCONT (22:46)
[2024-04-16 22:49] LABS: Basophils Percent Auto 0.2 % (0-2); Hematocrit 27.7 % (42.0-52.0); Hemoglobin 9.2 g/dl (14.0-18.0); Imm Gran Abs Auto 0.05 X10*3/uL (0.00-0.03); Imm Gran Pct Auto 0.5 % (0.0-0.4); Lymphocytes Absolute Auto 1.7 X10*3/uL (1.2-4.9); Mean Corpuscular HGB Conc 33.2 g/dl (31.0-36.0); Mean Corpuscular Hemoglobin 30.6 pg (27.0-33.0); Mean Platelet Volume 11.3 fL (9.4-12.4); Monocytes Absolute Auto 0.5 X10*3/uL (0.1-1.2); Monocytes Percent Auto 4.5 % (2-11); Neutrophils Absolute Auto 8.2 x10*3/uL (2.0-8.3); Neutrophils Percent Auto 78.8 % (45-73); Platelet Count 107 X10*3/uL (160-400); Red Blood Count 3.01 X10*6/uL (4.60-5.80); Red Cell Distribution Width 15.2 % (11.0-16.0); White Blood Count 10.4 X10*3/uL (4.8-10.8)
[2024-04-16] MEDS: levoFLOXacin/D5W 500 MG/100 ML PIGGYBACK 100 MG IV (22:52)
[2024-04-16] MEDS: Acetaminophen 325 MG TABLET 975 MG PO (22:52)
[2024-04-16 22:59] LABS: Lactic Acid 1.5 mmol/L (0.5-2.0)
[2024-04-16 23:00] LABS: INTERNATIONAL NORM RATIO 1.1 (0.9-1.1)
--- NOTE | 2024-04-16 23:05 | MHC.EDTECH ---
Patient BIBA,changed into hospital attire,EKG completed per order and signed by provider,2nd set of blood cultures obtained and sent to lab,vitals taken,call arboleda in reach
[2024-04-16 23:08] LABS: Alanine Aminotransferase 105 U/L (0-40); Albumin Level 3.8 g/dL (3.5-5.0); Alkaline Phosphatase 108 U/L (39-117); Anion Gap 18 (12-20); Aspartate Amino Transferase 119 U/L (5-37); Bilirubin Direct 0.2 mg/dL (0.0-0.5); Bilirubin Total 0.8 mg/dL (0.0-1.0); Blood Urea Nitrogen 67 mg/dL (9-16); Carbon Dioxide 20 mmol/L (22-29); Chloride 99 mmol/L (96-108); Creatinine Clr Calc Pharmacy 11.3; Estimated Glomerular Filt Rate 8; Ethanol < 10 mg/dL; Glucose Random 198 mg/dL (60-115); Magnesium 1.9 mg/dL (1.6-2.6); Potassium 4.9 mmol/L (3.3-5.1); Sodium 132 mmol/L (135-145); Total Protein 7.1 g/dL (6.5-8.0)
[2024-04-16 23:15] LABS: Troponin-I High Sensitivity 216.8 ng/L (<3.5-35.0)
--- NOTE | 2024-04-16 23:15 | PC.NURSE ---
1 Liter normal saline hanging, pt has hx of chf, unable to administer 30/kg
[2024-04-16 23:26] LABS: TSH reflex Free T4 1.15 uIU/mL (0.32-4.0)
[2024-04-16 23:29] LABS: Influenza A PCR NEGATIVE (Negative); Influenza B PCR NEGATIVE (Negative); Resp Syncy Virus RNA Qual PCR NEGATIVE (Negative); SARS COV2 PCR INHOUSE NEGATIVE (Negative)
--- NOTE | 2024-04-16 23:57 | PC.NURSE ---
aware of pt temp/ low bp. pt placed in reverse trendelenberg at this time.
[2024-04-17] VITALS (75 sets, daily range): BP systolic 78–139; BP diastolic 46–79; PULSE 71–99; RESP 10–20; TEMP 36.3–39.2; O2SAT 94–100
--- NOTE | 2024-04-17 00:02 | MHC.EDTECH ---
Hourly rounds and vitals completed,BP was low 82/50,RN/MD were made aware,continuous rectal probe placed at this time,102.6,patient placed in trendelenburg position,RN at bedside
--- NOTE | 2024-04-17 00:11 | PC.NURSE ---
18G placed in pt left wrist at this time.
--- NOTE | 2024-04-17 00:21 | MHC.EDTECH ---
family took home all belongings,patient has his upper denture only belongings list completed
--- NOTE | 2024-04-17 00:42 | MHC.EDTECH ---
Patient at CT at this time
[2024-04-17] MEDS: Norepinephrine Bitartrate/D5W 8 MG/250 ML PLAST..BAG 7.81 MG IVCONT (01:08)
--- NOTE | 2024-04-17 01:15 | PC.NURSE ---
pt started on levophed per provider order at this time. provider aware of pt bp. pt fever reduced.
[2024-04-17] MEDS: Piperacillin Sodium/Tazobactam 3.375 GM in 0.9 % Sodium Chloride 50 ML IV (01:32)
[2024-04-17] MEDS: Albumin Human 25 % 100 ML 133.33 ML IV ×2 (01:50→02:36)
--- NOTE | 2024-04-17 01:50 | PC.NURSE ---
18G placed on left back of forearm, albumin started per provider order at this time
[2024-04-17] MEDS: vancomycin/NS 2,000 MG/500 ML PLAST..BAG 250 MG IV (02:10)
--- NOTE | 2024-04-17 04:50 | PC.NURSE ---
per dr cleaning request, d/t pt bp being stable, pause levophed at this time.
--- NOTE | 2024-04-17 05:11 | MHC.EDTECH ---
Hourly rounds completed,patient is resting RN at bedside
--- NOTE | 2024-04-17 05:15 | PC.NURSE ---
per , start pt back on levophed at this time. pt started at 0.05.
--- NOTE | 2024-04-17 05:32 | PC.NURSE ---
per , continue pt levophed, pt vss.
--- NOTE | 2024-04-17 05:57 | MHC.EDTECH ---
Hourly rounds and vitals completed,patient is sleeping,call arboleda in reach
--- NOTE | 2024-04-17 07:08 | PC.NURSE ---
report given to juan j SCHNEIDER in icu.
--- NOTE | 2024-04-17 07:55 | PC.NURSE ---
pt arrived from ER. no rosario in place and pt refusing rosario stating he doesnt need it and doesnt want it.
[2024-04-17 08:03] LABS: Glucose, Whole Blood 157 mg/dL (60-115)
--- NOTE | 2024-04-17 08:42 | PHA.MEDREC ---
Addendum entered by Jaret Nascimento RPh 04/17/24 09:30: MED REC CHECKED BY [facility] Original Note: Pharmacy Consult ? Medication Reconciliation Pharmacy has completed the medication reconciliation. Confirmed medications with patient and he was able to confirm his medications and hows hes taking them. He confirmed he takes his Atorvastatin 80mg tab more at bedtime . Per his doctor he stopped taking Metformin 500mg over a month ago the patient stated. He confirmed he took his medications last Sunday.
[2024-04-17] MEDS: Atorvastatin Calcium 80 MG TABLET PO ×2 (10:04→20:59)
[2024-04-17] MEDS: Aspirin Enteric Coated 81 MG TABLET.DR PO (10:04)
[2024-04-17] MEDS: Piperacillin Sodium/Tazobactam 2.25 GM in 0.9 % Sodium Chloride 50 ML IV ×2 (10:04→18:34)
[2024-04-17] MEDS: Clopidogrel Bisulfate 75 MG TABLET PO (10:04)
--- NOTE | 2024-04-17 10:46 | P.HPCC_ITS ---
History of Present Illness Date of Service: 04/17/24 Chief Complaint: Fever and fall 68-year-old male with past medical history of ESRD on maintenance hemodialysis through a PermCath, CAD s/p PCI in 2012, CHF, CVA x2, non-insulin dependent type 2 diabetes presents to the ED with complaints fever for the past 3 days and also fall. He states he has been having intermittent fever not associated with chills for the past 3 days. No exacerbating or relieving factors. Fever is associated with fever episodes of diarrhea for the same duration. He denies any cough, denies any cold, denies any abdominal pain, denies any urinary symptoms, denies any bony pain. Yesterday in the evening when he was trying to walk he had a soft fall after which he presented to the ED. in the ED he was found to be hypotensive needing Levophed support so MICU was consulted. He also states that he has not been eating or drinking anything for the past 3 days. He occasionally urinates. Review of Systems 2 Constitutional: Constitutional: Denies daytime sleepiness and Denies difficulty sleeping Eyes: Eyes: Denies change in vision and Denies decreased night vision ENT: Reports Normal hearing present and Denies bleeding gums Cardiovascular: Cardiovascular: Denies Abdominal Cramping after Meds, Denies Abdominal Distension, Denies chest pain and Denies Epigastric Pain Respiratory: Respiratory: Denies change in phlegm color, Denies chest congestion and Denies cough Gastrointestinal: Gastrointestinal: Denies abdominal pain, Denies belching and Denies melena Genitourinary: Genitourinary: Denies change in libido and Denies hematuria Musculoskeletal: Musculoskeletal: Denies abnormal gait, Denies back pain, Denies myalgias, Reports atrophy and Denies arthralgias Neurologic: Reports Normal hearing present, Denies Neuro-related abnormal movements, Denies Abnormal speech present and Denies abnormal gait Psychiatric: Psychiatric: Denies change in libido Endocrine: Endocrine: Denies change in libido [facility] Past Medical History Medical History Non-insulin dependent type 2 diabetes mellitus CKD (chronic kidney disease) stage 3, GFR 30-59 ml/min Heart failure Hyperlipidemia STEMI (ST elevation myocardial infarction) CAD (coronary artery disease) CVA (cerebral vascular accident) Social History Social History Household Members: Family Household Members Other:: and daughter Housing: House Do you presently have visiting nurse or other home services: No Patient Tobacco Use Status: Never used Tobacco Smoked in Last 30 Days: No Second Hand Smoke Exposure: No Use of substances other than those prescribed or required for medical reasons: No Do you feel safe in your current relationship?: Yes Advance Directives: Yes Advance Directives on File: Yes Advance Directives Date on File: 02/29/24 Do you have a plan to hurt others: No Plan Recently lost weight without trying: No Nutrition Risks: Poor intake 0-25% >4 days service: No Meds Allergies Allergy/AdvReac Type Severity Reaction Status Date / Time No Known Allergies Allergy Verified 04/16/24 22:24 Active Medications: Current Medications Aspirin (Aspirin Enteric Coated 81 Mg Tablet.) 81 mg PO DAILY [facility] Last Admin: 04/17/24 10:04 Dose: 81 mg Atorvastatin Calcium (Atorvastatin Calcium 80 Mg Tablet) 80 mg PO BEDTIME [facility] Last Admin: 04/17/24 10:04 Dose: 80 mg Clopidogrel Bisulfate (Clopidogrel Bisulfate 75 Mg Tablet) 75 mg PO DAILY [facility] Last Admin: 04/17/24 10:04 Dose: 75 mg Famotidine (Famotidine 20 Mg Tablet) 20 mg PO BEDTIME PRN PRN Reason: Heartburn Glucose (Glucose Gel 15 Gm Gel..Gram.) 15 gm PO Q15M PRN; Protocol PRN Reason: per Hypoglycemia Standing Ord. Norepinephrine Bitartrate (Levophed) 8 mg in 250 mls @ 0 mls/hr IVCONT .Q0M [facility]; Protocol Last Titration: 04/17/24 07:56 Dose: 0 mcg/kg/min, 0 mls/hr Piperacillin Sod/Tazobactam (Sod 2.25 gm/ Sodium Chloride) 50 mls @ 100 mls/hr IV Q8H [facility] Last Infusion: 04/17/24 10:37 Dose: Infused Dextrose (D10) 250 mls @ 750 mls/hr IV Q15M PRN; Protocol PRN Reason: per Hypoglycemia Standing Ord. Vancomycin HCl 500 mg/ Sodium (Chloride) 110 mls @ 110 mls/hr IV Q24H [facility] Insulin Human Lispro (Insulin Lispro 100 Unit/Ml 3 Ml Vial) 0 unit SUBCUT ALLISON [facility]; Protocol Stop: 04/18/24 09:36 Pharmacy Consult (Consult Rx Vancomycin Dosing) 1 each MISCELLANE DAILY PRN PRN Reason: Consult order Home Medications ?Medication ?Instructions ?Recorded ?Confirmed ?Last Taken ?Type atorvastatin 80 mg tablet 80 mg PO BEDTIME 02/28/24 04/17/24 04/15/24 History clopidogrel 75 mg tablet 75 mg PO DAILY 02/28/24 04/17/24 04/15/24 History metoprolol succinate 200 mg 200 mg PO DAILY 02/28/24 04/17/24 04/15/24 History tablet,extended release 24 hr tamsulosin 0.4 mg capsule 0.4 mg PO DAILY 02/28/24 04/17/24 04/15/24 History aspirin 81 mg tablet,delayed 81 mg PO DAILY 02/29/24 04/17/24 04/15/24 History release famotidine 20 mg tablet 20 mg PO BEDTIME PRN Heartburn 04/17/24 04/17/24 04/15/24 History Physical Exam 2 Vital Signs: Vital Signs: Last Vital Signs Temp 97.3 F 04/17/24 10:00 Pulse 80 04/17/24 10:00 Resp 18 04/17/24 10:00 BP 113/69 04/17/24 10:00 Pulse Ox 99 04/17/24 10:00 O2 Del Method Room Air 04/17/24 10:00 BMI result Body Mass Index 24.9 General: Not in acute distress, comfortably sitting in the bed Nutritional Appearance: well nourished and normal weight Eyes: appearance normal, both eyes and all related structures; Alignment and Position: alignment normal and position normal Neck: No lymphadenopathy, no thyromegaly Resp: bilateral air entry equal, occasional added sounds present Cardio: Regular rate, regular rhythm; Heart sounds: S1 normal heart sound present and S2 normal heart sound present GI: soft, nontender, no guarding, no hepatosplenomegaly : bladder normal to inspection, bladder normal to palpation, no renal angle tenderness Skin: no rashes or lesions noted and elasticity normal Neuro: oriented to person, oriented to place, oriented to time and moves all extremities Neuro: Cranial nerves: Yes Normal hearing present Speech: No Abnormal speech present Results Labs 04/16/24 22:39 04/16/24 22:39 Labs: Laboratory Results - last 24 hr 04/16/24 04/16/24 04/17/24 22:39 22:43 07:59 MCV 92.0 MCH 30.6 MCHC 33.2 RDW 15.2 Plt Count 107 L MPV 11.3 Immature Gran % (Auto) 0.5 H Neut % (Auto) 78.8 H Lymph % (Auto) 16.0 L [place] % (Auto) 4.5 Eos % (Auto) 0.0 Baso % (Auto) 0.2 Lymph # (Auto) 1.7 [place] # (Auto) 0.5 Eos # (Auto) 0.0 Baso # (Auto) 0.0 Abs Immat Gran (auto) 0.05 H Absolute Neuts (auto) 8.2 Absolute Nucleated RBC 0.000 Nucleated RBC % (auto) 0.0 PT 13.0 H INR 1.1 Anion Gap 18 Estim Creat Clear Calc 11.3 Estimated GFR 8 POC Glucose 157 H Random Glucose 198 H Lactic Acid 1.5 Calcium 9.0 D Magnesium 1.9 Total Bilirubin 0.8 Direct Bilirubin 0.2 AST 119 H ALT 105 H Alkaline Phosphatase 108 Troponin I High Sens 216.8 H* D Total Protein 7.1 Albumin 3.8 TSH 1.15 Ethyl Alcohol < 10 Influenza Type A (PCR) NEGATIVE Influenza Type B (PCR) NEGATIVE RSV RNA Qual (PCR) NEGATIVE SARS-CoV-2 RNA (RT-PCR) NEGATIVE Imaging Radiologist's Impressions: Impressions Chest X-Ray 04/16/24 22:20 IMPRESSION: No acute cardiopulmonary process. Electronically signed by: Sohail Duarte DO 04/17/2024 12:[address] 04/17/24 00:00 IMPRESSION: *No acute pulmonary abnormalities identified. No evidence of pneumonia or active pulmonary edema. *Marked diffuse coronary artery calcific atherosclerosis. *Diffuse low density of the visualized blood pool. Findings are suspicious for anemia. Electronically signed by: Ranjit Lugo MD 04/17/2024 01:[address] 04/17/24 00:54 IMPRESSION: No acute intracranial abnormalities. Mild chronic microangiopathic ischemic disease. Intracranial atherosclerosis. Electronically signed by: Ranjit Lugo MD 04/17/2024 01:38 AM EDT RP Assessment and Plan (1) Hypotension: Status: Acute (2) Fever: Status: Acute (3) CKD (chronic kidney disease): Status: Acute (4) Incomplete bladder emptying: Status: Acute (5) Obstructive uropathy: Status: Acute (6) CRYSTAL (acute kidney injury): Status: Acute Plan Septic shock: Blood cultures growing Gram-positive cocci in cluster No pneumonia, no joint pain, no tenderness in the spine, no acute source of infection. Has a indwelling right subclavian PermCath. TTE ordered to rule out endocarditis Blood cultures needs to be repeated until the bacterial clearance every 2 days. Started the patient on vancomycin and Zosyn, can discontinue Zosyn once the blood cultures are confirmed Was on Levophed overnight, was brought into the ICU and Levophed this tapered off this morning around 08:00AM Lactate normal 1.5, antibiotic started, blood cultures has been sent. Patient received 1 L of fluid bolus can not receive more fluid boluses due to ESRD status. Bedside echo showed close to normal LV function, IVC 1.3 cm fluctuating. Please be gentle with fluid removal during dialysis. ESRD: On maintenance hemodialysis T/ through right subclavian PermCath Nephrology consulted CAD: Status post PCI in 2022 States since he has been started on metoprolol his blood pressure always runs on the lower side Withheld patient's home antihypertensives, continue aspirin and atorvastatin. GI: Diabetic diet ordered Endocrine: Sliding scale insulin ordered Monitor blood sugars Prophylaxis: Heparin
[2024-04-17 11:57] LABS: Glucose, Whole Blood 137 mg/dL (60-115)
--- NOTE | 2024-04-17 14:55 | MHC.CM.PN ---
Met with pt to discuss d/c planning needs: pt resides w/spouse, has no DME or services and attends [facility] on [facility] for HD on . Pt states he drives himself to sessions. PCP Dr. Griffiths, [facility] given and copy in chart, HCP on file and verified. Spouse to transport pt to home
--- NOTE | 2024-04-17 15:55 | PM.EVENT ---
Event Note Date of Service: 04/17/24 Event Note: 68-year-old male with past medical history of ESRD on maintenance hemodialysis T// through a PermCath, CAD s/p PCI in 2012, CHF, CVA x2, non-insulin dependent type 2 diabetes presents to the ED with complaints fever for the past 3 days and also fall. In the ED he was found to be hypotensive needing Levophed support so he was admitted to the ICU. After brief stay in the ICU he is weaned off of vasopressors and downgraded to the medical floor 04/17 Septic shock due to gram + bacteremia Blood cultures growing Gram-positive cocci in cluster No pneumonia, no joint pain, no tenderness in the spine. Possible line infection - Has a indwelling right subclavian PermCath. TTE ordered to rule out endocarditis Started the patient on vancomycin and Zosyn, can discontinue Zosyn once the blood cultures are confirmed Was on Levophed overnight, was brought into the ICU and Levophed this tapered off this morning around 08:00AM Patient received 1 L of fluid bolus can not receive more fluid boluses due to ESRD status. repeat blood cultures ordered will consult ID ESRD: On maintenance hemodialysis T// through right subclavian PermCath Nephrology consulted CAD: Status post PCI in 2022 on metoprolol 200 daily - bp soft - on hold continue aspirin and atorvastatin. diabetes Diabetic diet ordered SSI, POCs BPH flomax on hold thrombocytopenia appears chronic hold dvt ppx if drop below 70 Prophylaxis: Heparin further management as per admission H&P Time Spent With Patient Time: Total time managing care of this patient today ____ minutes.
[2024-04-17 16:31] LABS: Glucose, Whole Blood 114 mg/dL (60-115)
[2024-04-17 16:50] LABS: Creatinine Clr Calc Pharmacy 22.7; Estimated Glomerular Filt Rate 19
[2024-04-17 16:52] LABS: Vancomycin Random 16.1 mcg/mL (15-20)
[2024-04-17] MEDS: Heparin Sodium,Porcine 5,000 UNIT/ML VIAL 5000 UNIT SUBCUT (18:35)
[2024-04-17 20:23] LABS: Glucose, Whole Blood 126 mg/dL (60-115)
--- NOTE | 2024-04-17 21:12 | PM.CNNEP ---
History of Present Illness Reason for Consult Consult date: 04/17/24 Chief Complaint Chief complaint: Fever UO, hypotension History of Present Illness Narrative: 68/m with pmh of CRYSTAL on ckd 4 on maintenance hemodialysis // through a PermCath, CAD s/p PCI in 2012, CHF, CVA x2, non-insulin dependent type 2 diabetes presented to the ED with complaints fever for the past 3 days with chills. h/o a soft fall after which he was admitted and was found to be hypotensive needing Levophed support in MICU h/o poor po intake his last HD was 04/15/24- today is his next due date for hd [facility] Past Medical History Medical History Non-insulin dependent type 2 diabetes mellitus CKD (chronic kidney disease) stage 3, GFR 30-59 ml/min Heart failure Hyperlipidemia STEMI (ST elevation myocardial infarction) CAD (coronary artery disease) CVA (cerebral vascular accident) Social History Social History Household Members: Family Household Members Other:: and daughter Housing: House Do you presently have visiting nurse or other home services: No Patient Tobacco Use Status: Never used Tobacco Smoked in Last 30 Days: No Second Hand Smoke Exposure: No Use of substances other than those prescribed or required for medical reasons: No Do you feel safe in your current relationship?: Yes Advance Directives: Yes Advance Directives on File: Yes Advance Directives Date on File: 02/29/24 Do you have a plan to hurt others: No Plan Recently lost weight without trying: No Nutrition Risks: Poor intake 0-25% >4 days service: No Meds Allergies Allergy/AdvReac Type Severity Reaction Status Date / Time No Known Allergies Allergy Verified 04/16/24 22:24 Active Medications: Current Medications Aspirin (Aspirin Enteric Coated 81 Mg Tablet.) 81 mg PO DAILY [facility] Last Admin: 04/17/24 10:04 Dose: 81 mg Atorvastatin Calcium (Atorvastatin Calcium 80 Mg Tablet) 80 mg PO BEDTIME [facility] Last Admin: 04/17/24 20:59 Dose: 80 mg Clopidogrel Bisulfate (Clopidogrel Bisulfate 75 Mg Tablet) 75 mg PO DAILY [facility] Last Admin: 04/17/24 10:04 Dose: 75 mg Famotidine (Famotidine 20 Mg Tablet) 20 mg PO BEDTIME PRN PRN Reason: Heartburn Glucose (Glucose Gel 15 Gm Gel..Gram.) 15 gm PO Q15M PRN; Protocol PRN Reason: per Hypoglycemia Standing Ord. Heparin Sodium (Porcine) (Heparin Sodium,Porcine 5,000 Unit/Ml Vial) 5,000 unit SUBCUT Q12H [facility] Last Admin: 04/17/24 18:35 Dose: 5,000 unit Piperacillin Sod/Tazobactam (Sod 2.25 gm/ Sodium Chloride) 50 mls @ 100 mls/hr IV Q8H [facility] Last Infusion: 04/17/24 19:09 Dose: Infused Dextrose (D10) 250 mls @ 750 mls/hr IV Q15M PRN; Protocol PRN Reason: per Hypoglycemia Standing Ord. Vancomycin HCl 500 mg/ Sodium (Chloride) 110 mls @ 110 mls/hr IV Q24H [facility] Insulin Human Lispro (Insulin Lispro 100 Unit/Ml 3 Ml Vial) 0 unit SUBCUT QIDACHS [facility]; Protocol Stop: 04/18/24 09:36 Last Admin: 04/17/24 21:06 Dose: Not Given Pharmacy Consult (Consult Rx Vancomycin Dosing) 1 each MISCELLANE DAILY PRN PRN Reason: Consult order Home Medications ?Medication ?Instructions ?Recorded ?Confirmed ?Last Taken ?Type atorvastatin 80 mg tablet 80 mg PO BEDTIME 02/28/24 04/17/24 04/15/24 History clopidogrel 75 mg tablet 75 mg PO DAILY 02/28/24 04/17/24 04/15/24 History metoprolol succinate 200 mg 200 mg PO DAILY 02/28/24 04/17/24 04/15/24 History tablet,extended release 24 hr tamsulosin 0.4 mg capsule 0.4 mg PO DAILY 02/28/24 04/17/24 04/15/24 History aspirin 81 mg tablet,delayed 81 mg PO DAILY 02/29/24 04/17/24 04/15/24 History release famotidine 20 mg tablet 20 mg PO BEDTIME PRN Heartburn 04/17/24 04/17/24 04/15/24 History Physical Exam Vital Signs: Last Vital Signs Temp 97.5 F 04/17/24 19:24 Pulse 91 04/17/24 19:24 Resp 18 04/17/24 19:24 BP 105/57 L 04/17/24 19:24 Pulse Ox 99 04/17/24 19:24 O2 Del Method Room Air 04/17/24 19:24 BMI result Body Mass Index 24.9 cvs: s1s2 RS; cta abd; soft Rij pc Results Lab Results 04/16/24 22:39 04/17/24 16:06 Lab results: Chemistry 04/16/24 04/17/24 22:39 16:06 Sodium 132 L Potassium 4.9 D Carbon Dioxide 20 L BUN 67 H Creatinine 6.63 H* 3.31 H Calcium 9.0 D Hematology 04/16/24 22:39 WBC 10.4 Hgb 9.2 L D Plt Count 107 L Assessment and Plan (1) CRYSTAL (acute kidney injury): Status: Acute (2) CKD (chronic kidney disease): Status: Acute Plan 68yo M with CAD s/p STEMI 2022 with PCI, CHF, CVA x2, DM2, CKD3 recent admit for CRYSTAL/hyperK/metabolic acidosis 1. CRYSTAL: renal func was not bouncing back so HD started and now being reassess for renal recovery in his outpatient hd unit outpt HD is at [facility] - 1st shift ( [phone]) 2. CKD 4 BSL Scr 4.5 on 02/2024 at last OV; h/o DN/HTN adv renal dis 3. Nephrogenic Anemia 4. fever - abx, pending cultures REC: HD per TTS schedule epo as ordered fu cultiures abx no need for phos binders as poor po and recent low phos in dialysis unit labs Procedures Date of Service Date of Service: 04/17/24
[2024-04-18] MEDS: Piperacillin Sodium/Tazobactam 2.25 GM in 0.9 % Sodium Chloride 50 ML IV (02:19)
[2024-04-18 03:04] VITALS: BP 97/56; PULSE 74; RESP 18; TEMP 36.6; O2SAT 98
[2024-04-18] MEDS: Heparin Sodium,Porcine 5,000 UNIT/ML VIAL 5000 UNIT SUBCUT ×2 (05:58→17:04)
[2024-04-18 06:00] VITALS: BMI 24.6
[2024-04-18 06:22] LABS: MANUAL DIFF FLAG NO
[2024-04-18 06:44] LABS: Basophils Percent Auto 0.3 % (0-2); Eosinophils Absolute Auto 0.1 X10*3/uL (0.0-0.4); Eosinophils Percent Auto 1.3 % (0-4); Hematocrit 23.1 % (42.0-52.0); Hemoglobin 7.6 g/dl (14.0-18.0); Imm Gran Abs Auto 0.01 X10*3/uL (0.00-0.03); Imm Gran Pct Auto 0.3 % (0.0-0.4); Lymphocytes Percent Auto 26.7 % (20-40); Mean Corpuscular HGB Conc 32.9 g/dl (31.0-36.0); Mean Corpuscular Hemoglobin 30.4 pg (27.0-33.0); Mean Corpuscular Volume 92.4 fL (80.0-98.0); Mean Platelet Volume 11.8 fL (9.4-12.4); Monocytes Absolute Auto 0.5 X10*3/uL (0.1-1.2); Monocytes Percent Auto 12.8 % (2-11); Neutrophils Absolute Auto 2.2 x10*3/uL (2.0-8.3); Neutrophils Percent Auto 58.6 % (45-73); Platelet Count 96 X10*3/uL (160-400); Red Cell Distribution Width 15.3 % (11.0-16.0); White Blood Count 3.8 X10*3/uL (4.8-10.8)
--- NOTE | 2024-04-18 07:00 | CA_ITS ---
Transthoracic Echocardiogram Patient (Last, First, Middle): Woody Alfredo S Gender: Male Date of : 1955 Age: 68 Procedure Date: 04/18/2024 Procedure Type: Transthoracic Echocardiogram Location: [facility] [place] Height: 187.96 cm Weight: 83.01 kg BSA: 2.09 m2 Heart Rate: bpm BP: 113 / 69 mmHg Director Of Casino Marketing: Referring MD: Antoine Schaffer MD Director Of Health Care Marketing: Mick Molina MD Symptoms: rule out endocarditis Study Quality: Adequate w contrast ECG Rhythm: Sinus Conclusions: - 1. Moderate to severe LV systolic dysfunction with LVEF of 30 35% with regional wall motion abnormality consistent with ischemic cardiomyopathy with impaired relaxation filling pattern 2. Moderately dilated left atrium 3. No clear evidence of vegetation with calcific mitral valve changes noted with normal cardiac valvular Dopplers 4. Upper limits of normal ascending aortic size 5. No gross pericardial effusion Findings Procedure Information Contrast agent, definity, is being given per protocol without apparent complications. Left Ventricle Mildly increased left ventricular cavity size. There is normal left ventricular wall thickness. The left ventricular systolic function is moderate to severely decreased. The visually estimated ejection fraction is between 30-35%. Spectral Doppler is indicative of an impaired relaxation filling pattern. E/E prime ratio is between 8 and 15 consistent with indeterminate filling pressures. Wall Motion Rest Echo Findings The inferolateral wall and mid anteroseptal segment are hypokinetic. The inferoseptal wall, inferior wall, and apical septum segment are akinetic. All other scored wall segments showed normal motion. Right Ventricle The right ventricle was not well visualized. Atria The left atrium is moderately dilated. There is no evidence of interatrial shunt. The right atrium was not well visualized. Aortic Valve The aortic valve structure and function is likely normal. There is no aortic valve stenosis. There is no aortic valve regurgitation. Mitral Valve There is moderate anterior and posterior mitral leaflet thickening. The posterior mitral leaflet has restricted mobility. There is mild mitral annular calcification. There is trace mitral valve regurgitation. There is no mitral valve stenosis. Pulmonic Valve The pulmonic valve was not well visualized. Tricuspid Valve The tricuspid valve was not well visualized. Tricuspid regurgitation envelope is inadequate for calculation of right ventricular systolic pressure. Normal right atrial pressure. Great Vessels The pulmonary artery was not well visualized. There is no dilatation of the ascending aorta measuring 3.60 cm. Small plaque is seen in the sino tubular ridge. Venous The inferior vena cava is normal in size and collapses greater than 50% with inspiration. Pericardium/Pleural There is no evidence of pericardial effusion. Prior Study Comparison No prior study available for comparison. Recommendations, Care & Conclusions Consider a DUANE if clinically appropriate. Measurements 2D Linear Measurements IVSd: 0.86 0.6-0.9/0.6-1.0 cm LVIDd: 6.10 3.9-5.3/4.2-5.9 cm LVIDd Index: 2.92 2.4-3.2/2.2-3.1 cm/m2 LVIDs: 5.17 2.0-3.6 cm LVPWd: 0.94 0.7-1.1 cm Ao Root: 3.70 2.1-3.5 cm LA Diam: 4.70 2.7-3.8/3.0-4.0 cm LAIDs Index: 2.25 1.5-2.3 cm/m2 LV Mass: 276.51 67-162/88-224 g LV Mass Index: 132.30 43-95/49-115 g/m2 LVOT Diam: 2.20 3.0+(-)1.3 cm 2D Systolic Function EF 4C: 34.70 >55% EF 2C: 29.10 >55% EF BiP: 31.60 >55% Mitral Valve MV VTI: 0.37 MV Pk Osito: 1.31 MV Mn Osito: 0.77 MV Pk Grad: 7.00 MV Mn Grad: 3.00 MV Pk E: 0.81 MV PK A: 1.16 MV Decel Time: 152.00 E/A: 0.70 E'Lateral: 6.09 E'Medial: 4.90 E/E' Med: 16.40 E/E' Lat: 13.20 PHT: 45.00 MVA PHT: 4.89 MVA Continuity: 2.17 Decel Glynn: 5.29 Aortic Valve AoV Pk Osito: 1.41 AoV Mn Osito: 0.94 AoV VTI: 0.30 AoV Pk Grad: 8.00 Aov Mn Grad: 4.00 ASHLEY Cont.VTI: 2.67 LVOT LVOT Pk Osito: 0.98 LVOT Mn Osito: 0.64 LVOT VTI: 0.21 LVOT Pk Grad: 4.00 LVOT Mn Grad: 2.00 LVOT Diam: 2.20 LVOT Area: 3.80 Diastolic Function MV Pk E: 0.81 MV Pk A: 1.16 E/A: 0.70 E'Medial: 4.90 E/E' Med: 16.40 E' Laterial: 6.09 E/E' Lat: 13.20 Right Ventricle TAPSE (mm): 22.80 TVS' Osito: 13.60 Tricuspid Valve TR Pk Osito: 2.13 TR Pk Grad: 18.00 Great Vessels Aorta Ao Root-2D: 3.70 2.0-3.7 cm Ao Asc: 3.60 2.1-3.4 cm Pulmonary Valve PV Pk Osito: 1.41 Peak PV Grad: 8.00 Updated in Other Vendor System with Status of Final Mick Molina MD electronically signed on 04/18/2024 3:56:44 PM with status of Final
[2024-04-18 07:16] LABS: Alanine Aminotransferase 104 U/L (0-40); Albumin Level 3.1 g/dL (3.5-5.0); Alkaline Phosphatase 77 U/L (39-117); Anion Gap 12 (12-20); Aspartate Amino Transferase 104 U/L (5-37); Bilirubin Total 0.6 mg/dL (0.0-1.0); Blood Urea Nitrogen 43 mg/dL (9-16); Calcium 8.4 mg/dL (8.4-10.2); Carbon Dioxide 28 mmol/L (22-29); Chloride 100 mmol/L (96-108); Glucose Random 91 mg/dL (60-115); Phosphorus 2.9 mg/dL (2.7-4.5); Potassium 3.4 mmol/L (3.3-5.1); Sodium 137 mmol/L (135-145); Total Protein 5.5 g/dL (6.5-8.0)
[2024-04-18 07:30] LABS: Creatinine Clr Calc Pharmacy 16.5; Estimated Glomerular Filt Rate 13
[2024-04-18 07:35] VITALS: BP 106/63; PULSE 82; RESP 18; TEMP 36.9; O2SAT 98
[2024-04-18 07:56] LABS: Glucose, Whole Blood 98 mg/dL (60-115)
[2024-04-18] MEDS: Clopidogrel Bisulfate 75 MG TABLET PO (09:45)
[2024-04-18] MEDS: Aspirin Enteric Coated 81 MG TABLET.DR PO (09:45)
[2024-04-18 10:37] LABS: C Reactive Protein 12.36 mg/dL (< or = 0.50)
[2024-04-18 10:50] LABS: Erythrocyte Sedimentation Rate 18 MM/HR (0-15)
[2024-04-18 11:11] VITALS: BP 95/64; PULSE 91; RESP 18; TEMP 36.7; O2SAT 97
[2024-04-18 11:42] LABS: Glucose, Whole Blood 130 mg/dL (60-115)
--- NOTE | 2024-04-18 13:12 | MHC.CM.PN ---
Per MD rounds discharge is not planned for today. The patient is planned for a PICC line. DP Home resume HD. Patient will arrange for transportation home at [place].
--- NOTE | 2024-04-18 14:20 | HO.PM.IMPN ---
Subjective Subjective Date of Service: 04/18/24 Interval History: Seen and examined this morning Septic shock/bacteremia Downgraded from the ICU 04/18 feeling better overall, reporting left middle finger wound Review of Systems Review of Systems: Yes all other systems are reviewed and are negative Constitutional Constitutional: Denies chills and Denies fever(s) Cardiovascular Cardiovascular: Denies chest pain and Denies palpitations Endocrine Endocrine: Denies palpitations Physical Exam Vital Signs: Vital Signs: Last Vital Signs Temp 98.0 F 04/18/24 11:11 Pulse 91 04/18/24 11:11 Resp 18 04/18/24 11:11 BP 95/64 04/18/24 11:11 Pulse Ox 97 04/18/24 11:11 O2 Del Method Room Air 04/18/24 11:11 BMI result Body Mass Index 24.6 Const: General: comfortable, no acute distress, alert and awake Nutritional Appearance: average body habitus Orientation/consciousness: patient oriented x3 Resp: Effort & Inspection: normal respiratory effort, able to speak in complete sentences, no respiratory distress and no use of accessory muscles Cardio: Rate: regular rate GI: Inspection: No distended Palpation (GI): Soft to palpation and nontender Skin: Other: left middle finger with ulcer, purulent drainage Neuro: General: patient oriented x3, moves all extremities and CN's II-XI intact bilaterally Extrem: General: Yes no pedal edema Objective Data Active Medications Aspirin (Aspirin Enteric Coated 81 Mg Tablet.) 81 mg PO DAILY [facility] Last Admin: 04/18/24 09:45 Dose: 81 mg Documented By: JAMAAL Atorvastatin Calcium (Atorvastatin Calcium 80 Mg Tablet) 80 mg PO BEDTIME [facility] Last Admin: 04/17/24 20:59 Dose: 80 mg Documented By: FREDA Clopidogrel Bisulfate (Clopidogrel Bisulfate 75 Mg Tablet) 75 mg PO DAILY [facility] Last Admin: 04/18/24 09:45 Dose: 75 mg Documented By: JAMAAL Famotidine (Famotidine 20 Mg Tablet) 20 mg PO BEDTIME PRN PRN Reason: Heartburn Glucose (Glucose Gel 15 Gm Gel..Gram.) 15 gm PO Q15M PRN; Protocol PRN Reason: per Hypoglycemia Standing Ord. Heparin Sodium (Porcine) (Heparin Sodium,Porcine 5,000 Unit/Ml Vial) 5,000 unit SUBCUT Q12H [facility] Last Admin: 04/18/24 05:58 Dose: 5,000 unit Documented By: KELLIE Dextrose (D10) 250 mls @ 750 mls/hr IV Q15M PRN; Protocol PRN Reason: per Hypoglycemia Standing Ord. Vancomycin HCl 500 mg/ Sodium (Chloride) 110 mls @ 110 mls/hr IV Q24H [facility] Pharmacy Consult (Consult Rx Vancomycin Dosing) 1 each MISCELLANE DAILY PRN PRN Reason: Consult order Labs 04/18/24 05:53 04/18/24 05:53 Labs: Laboratory Results - last 24 hr 04/17/24 04/17/24 04/17/24 16:06 16:27 20:19 MCV MCH MCHC RDW Plt Count MPV Immature Gran % (Auto) Neut % (Auto) Lymph % (Auto) [place] % (Auto) Eos % (Auto) Baso % (Auto) Lymph # (Auto) [place] # (Auto) Eos # (Auto) Baso # (Auto) Abs Immat Gran (auto) Absolute Neuts (auto) Absolute Nucleated RBC Nucleated RBC % (auto) ESR Anion Gap Estim Creat Clear Calc 22.7 Estimated GFR 19 POC Glucose 114 126 H Random Glucose Calcium Phosphorus Magnesium Total Bilirubin AST ALT Alkaline Phosphatase C-Reactive Protein Total Protein Albumin Random Vancomycin 16.1 04/18/24 04/18/24 04/18/24 05:53 05:53 05:53 MCV 92.4 Cancelled MCH 30.4 Cancelled MCHC 32.9 RDW Plt Count MPV Immature Gran % (Auto) Neut % (Auto) Lymph % (Auto) [place] % (Auto) Eos % (Auto) Baso % (Auto) Lymph # (Auto) [place] # (Auto) Eos # (Auto) Baso # (Auto) Abs Immat Gran (auto) Absolute Neuts (auto) Absolute Nucleated RBC Nucleated RBC % (auto) ESR Anion Gap Estim Creat Clear Calc Estimated GFR POC Glucose Random Glucose Calcium Phosphorus Magnesium Total Bilirubin AST ALT Alkaline Phosphatase C-Reactive Protein Total Protein Albumin Random Vancomycin 04/18/24 04/18/24 04/18/24 05:53 05:53 05:53 MCV MCH MCHC Cancelled RDW 15.3 Cancelled Plt Count 96 L Cancelled MPV 11.8 Immature Gran % (Auto) Neut % (Auto) Lymph % (Auto) [place] % (Auto) Eos % (Auto) Baso % (Auto) Lymph # (Auto) [place] # (Auto) Eos # (Auto) Baso # (Auto) Abs Immat Gran (auto) Absolute Neuts (auto) Absolute Nucleated RBC Nucleated RBC % (auto) ESR Anion Gap Estim Creat Clear Calc Estimated GFR POC Glucose Random Glucose Calcium Phosphorus Magnesium Total Bilirubin AST ALT Alkaline Phosphatase C-Reactive Protein Total Protein Albumin Random Vancomycin 04/18/24 04/18/24 04/18/24 05:53 05:53 05:53 MCV MCH MCHC RDW Plt Count MPV Cancelled Immature Gran % (Auto) 0.3 Neut % (Auto) 58.6 Lymph % (Auto) 26.7 [place] % (Auto) 12.8 H Eos % (Auto) 1.3 Baso % (Auto) 0.3 Lymph # (Auto) 1.0 L [place] # (Auto) 0.5 Eos # (Auto) 0.1 Baso # (Auto) 0.0 Abs Immat Gran (auto) 0.01 Absolute Neuts (auto) 2.2 Absolute Nucleated RBC 0.000 Cancelled Nucleated RBC % (auto) 0.0 Cancelled ESR 18 H Anion Gap Cancelled Estim Creat Clear Calc Estimated GFR POC Glucose Random Glucose Calcium Phosphorus Magnesium Total Bilirubin AST ALT Alkaline Phosphatase C-Reactive Protein Total Protein Albumin Random Vancomycin 04/18/24 04/18/24 04/18/24 05:53 05:53 05:53 MCV MCH MCHC RDW Plt Count MPV Immature Gran % (Auto) Neut % (Auto) Lymph % (Auto) [place] % (Auto) Eos % (Auto) Baso % (Auto) Lymph # (Auto) [place] # (Auto) Eos # (Auto) Baso # (Auto) Abs Immat Gran (auto) Absolute Neuts (auto) Absolute Nucleated RBC Nucleated RBC % (auto) ESR Anion Gap 12 Estim Creat Clear Calc Cancelled 16.5 Estimated GFR Cancelled 13 POC Glucose Random Glucose Cancelled Calcium Phosphorus Magnesium Total Bilirubin AST ALT Alkaline Phosphatase C-Reactive Protein Total Protein Albumin Random Vancomycin 04/18/24 04/18/24 04/18/24 05:53 05:53 07:34 MCV MCH MCHC RDW Plt Count MPV Immature Gran % (Auto) Neut % (Auto) Lymph % (Auto) [place] % (Auto) Eos % (Auto) Baso % (Auto) Lymph # (Auto) [place] # (Auto) Eos # (Auto) Baso # (Auto) Abs Immat Gran (auto) Absolute Neuts (auto) Absolute Nucleated RBC Nucleated RBC % (auto) ESR Anion Gap Estim Creat Clear Calc Estimated GFR POC Glucose 98 Random Glucose 91 Calcium Cancelled 8.4 D Phosphorus 2.9 Magnesium 2.0 Total Bilirubin 0.6 AST 104 H ALT 104 H Alkaline Phosphatase 77 C-Reactive Protein 12.36 H Total Protein 5.5 L Albumin 3.1 L Random Vancomycin 04/18/24 11:14 MCV MCH MCHC RDW Plt Count MPV Immature Gran % (Auto) Neut % (Auto) Lymph % (Auto) [place] % (Auto) Eos % (Auto) Baso % (Auto) Lymph # (Auto) [place] # (Auto) Eos # (Auto) Baso # (Auto) Abs Immat Gran (auto) Absolute Neuts (auto) Absolute Nucleated RBC Nucleated RBC % (auto) ESR Anion Gap Estim Creat Clear Calc Estimated GFR POC Glucose 130 H Random Glucose Calcium Phosphorus Magnesium Total Bilirubin AST ALT Alkaline Phosphatase C-Reactive Protein Total Protein Albumin Random Vancomycin Microbiology Microbiology Results: Microbiology 04/17/24 18:27 Blood Culture - Preliminary Blood - Venous Prelim: GPC Gram Stain only 04/16/24 22:45 Blood Culture - Preliminary Blood - Venous Staphylococcus species 04/16/24 22:43 Blood Culture - Preliminary Blood - Venous Staphylococcus species Assessment and Plan (1) Bacteremia: Status: Acute Plan This is a 68-year-old male with past medical history of ESRD on maintenance hemodialysis T// through a PermCath, CAD s/p PCI in 2012, CHF, CVA x2, non-insulin dependent type 2 diabetes presents to the ED with complaints fever for the past 3 days and also fall. In the ED he was found to be hypotensive needing Levophed support so he was admitted to the ICU. After brief stay in the ICU he is weaned off of vasopressors and downgraded to the medical floor 04/17 Septic shock due to Staph bacteremia Blood cultures growing staph species; surveillance blood cultures growing 1/2 GPC No pneumonia, no joint pain, no tenderness in the spine. Possible line infection - Has a indwelling right subclavian PermCath vs left hand infection TTE ordered to rule out endocarditis - report pending Started the patient on vancomycin and Zosyn-Zosyn stopped 04/18 ID consult pending Would repeat blood cultures Sunday or Sunday Left hand wound We will check inflammatory markers and x-ray Unclear if bone involvement Wound care consult General surgery consult ESRD: On maintenance hemodialysis through right subclavian PermCath Nephrology consulted Nephrogenic anemia Follow CBC CAD: Status post PCI in 2022 on metoprolol 200 daily - bp soft - on hold continue aspirin, Plavix and atorvastatin. diabetes Diabetic diet ordered SSI, POCs BPH Finasteride, tamsulosin on hold for soft blood pressure, resume as tolerated thrombocytopenia appears chronic hold dvt ppx if drop below 70 DVT Prophylaxis: Heparin Quality Stroke Does the patient have a stroke diagnosis?: No VTE Prior VTE?: No VTE Risk Level:: Medical - moderate - high VTE Device Contraindication: N/A - Device Ordered VTE Drug Contraindication: Treatment Not Indicated
[2024-04-18 15:36] VITALS: BP 116/68; PULSE 76; RESP 18; TEMP 36.2; O2SAT 99
[2024-04-18 15:57] LABS: Glucose, Whole Blood 130 mg/dL (60-115)
[2024-04-18 21:24] VITALS: BP 115/69; PULSE 72; RESP 20; TEMP 36.7; O2SAT 97
[2024-04-18] MEDS: Atorvastatin Calcium 80 MG TABLET PO (21:27)
[2024-04-18 21:43] LABS: Glucose, Whole Blood 132 mg/dL (60-115)
--- NOTE | 2024-04-18 22:01 | P.CNID_ITS ---
History of Present Illness Data of Consult Service Date: 04/18/24 Requesting physician: Amanda Hirsch Primary Care Provider: Hilton Pepe MD HPI Reason for consult: sepsis,gram positive cocci ,staph species He presents with weakness after fall. He was hypotensive and in ICU. He has staph species in blood. He gets HD and now has chest catheter. Review of Systems 2 Review of Systems: Yes all other systems are reviewed and are negative PMFSH Past Medical History Medical History Non-insulin dependent type 2 diabetes mellitus CKD (chronic kidney disease) stage 3, GFR 30-59 ml/min Heart failure Hyperlipidemia STEMI (ST elevation myocardial infarction) CAD (coronary artery disease) CVA (cerebral vascular accident) Family History Family history: reviewed and not pertinent Social History Social History Household Members: Family Household Members Other:: and daughter Housing: House Do you presently have visiting nurse or other home services: No Patient Tobacco Use Status: Never used Tobacco Smoked in Last 30 Days: No Second Hand Smoke Exposure: No Use of substances other than those prescribed or required for medical reasons: No Currently Displaying Signs/Symptoms of Drug Intoxication Withdrawal: No Do you feel safe in your current relationship?: Yes Advance Directives: Yes Advance Directives on File: Yes Advance Directives Date on File: 02/29/24 Do you have a plan to hurt others: No Plan Recently lost weight without trying: No Nutrition Risks: Poor intake 0-25% >4 days service: No Meds Allergies Allergy/AdvReac Type Severity Reaction Status Date / Time No Known Allergies Allergy Verified 04/16/24 22:24 Active Medications: Current Medications Aspirin (Aspirin Enteric Coated 81 Mg Tablet.) 81 mg PO DAILY [facility] Last Admin: 04/18/24 09:45 Dose: 81 mg Atorvastatin Calcium (Atorvastatin Calcium 80 Mg Tablet) 80 mg PO BEDTIME [facility] Last Admin: 04/18/24 21:27 Dose: 80 mg Clopidogrel Bisulfate (Clopidogrel Bisulfate 75 Mg Tablet) 75 mg PO DAILY [facility] Last Admin: 04/18/24 09:45 Dose: 75 mg Famotidine (Famotidine 20 Mg Tablet) 20 mg PO BEDTIME PRN PRN Reason: Heartburn Glucose (Glucose Gel 15 Gm Gel..Gram.) 15 gm PO Q15M PRN; Protocol PRN Reason: per Hypoglycemia Standing Ord. Heparin Sodium (Porcine) (Heparin Sodium,Porcine 5,000 Unit/Ml Vial) 5,000 unit SUBCUT Q12H [facility] Last Admin: 04/18/24 17:04 Dose: 5,000 unit Dextrose (D10) 250 mls @ 750 mls/hr IV Q15M PRN; Protocol PRN Reason: per Hypoglycemia Standing Ord. Vancomycin HCl 500 mg/ Sodium (Chloride) 110 mls @ 110 mls/hr IV Q24H [facility] Pharmacy Consult (Consult Rx Vancomycin Dosing) 1 each MISCELLANE DAILY PRN PRN Reason: Consult order Home Medications ?Medication ?Instructions ?Recorded ?Confirmed ?Last Taken ?Type atorvastatin 80 mg tablet 80 mg PO BEDTIME 02/28/24 04/17/24 04/15/24 History clopidogrel 75 mg tablet 75 mg PO DAILY 02/28/24 04/17/24 04/15/24 History metoprolol succinate 200 mg 200 mg PO DAILY 02/28/24 04/17/24 04/15/24 History tablet,extended release 24 hr tamsulosin 0.4 mg capsule 0.4 mg PO DAILY 02/28/24 04/17/24 04/15/24 History aspirin 81 mg tablet,delayed 81 mg PO DAILY 02/29/24 04/17/24 04/15/24 History release famotidine 20 mg tablet 20 mg PO BEDTIME PRN Heartburn 04/17/24 04/17/24 04/15/24 History Physical Exam 2 Vital Signs: Vital Signs: Last Vital Signs Temp 98.1 F 04/18/24 21:24 Pulse 72 04/18/24 21:24 Resp 20 04/18/24 21:24 BP 115/69 04/18/24 21:24 Pulse Ox 97 04/18/24 21:24 O2 Del Method Room Air 04/18/24 21:24 BMI result Body Mass Index 24.6 Extrem: General: Yes normal to inspection Psych: Other: confusion Results Labs 04/18/24 05:53 04/18/24 05:53 Labs: Short CBC 04/18/24 04/18/24 04/18/24 Range/Units 05:53 05:53 05:53 WBC 3.8 L Cancelled (4.8-10.8) X10*3/uL Hgb 7.6 L Cancelled (14.0-18.0) g/dl Hct 23.1 L (42.0-52.0) % Plt Count (160-400) X10*3/uL 04/18/24 04/18/24 Range/Units 05:53 05:53 WBC (4.8-10.8) X10*3/uL Hgb (14.0-18.0) g/dl Hct Cancelled (42.0-52.0) % Plt Count 96 L Cancelled (160-400) X10*3/uL BMP 04/18/24 04/18/24 04/18/24 05:53 05:53 05:53 Sodium Cancelled 137 Potassium Cancelled 3.4 D Chloride Cancelled Carbon Dioxide BUN Creatinine Calcium 04/18/24 04/18/24 04/18/24 05:53 05:53 05:53 Sodium Potassium Chloride 100 Carbon Dioxide Cancelled 28 BUN Cancelled 43 H Creatinine Cancelled Calcium 04/18/24 04/18/24 05:53 05:53 Sodium Potassium Chloride Carbon Dioxide BUN Creatinine 4.56 H* Calcium Cancelled 8.4 D Liver Function 04/18/24 Range/Units 05:53 Total Bilirubin 0.6 (0.0-1.0) mg/dL AST 104 H (5-37) U/L ALT 104 H (0-40) U/L Alkaline Phosphatase 77 (39-117) U/L Albumin 3.1 L (3.5-5.0) g/dL Microbiology Microbiology Results: Microbiology 04/17/24 18:27 Blood - Venous Blood Culture - Preliminary Prelim: GPC Gram Stain only 04/17/24 18:27 Blood - Venous Blood Culture - Preliminary Prelim: GPC Gram Stain only 04/16/24 22:45 Blood - Venous Blood Culture - Preliminary Staphylococcus species 04/16/24 22:43 Blood - Venous Blood Culture - Preliminary Staphylococcus species Assessment and Plan (1) Bacteremia: Status: Acute (2) Hypotension: Status: Acute Plan He has probable infection dialysis line. He has staph species,may be aureus or lugdunensis or other Would give Vancomycin with dialysis. Check TTE Probable four weeks IV antibiotics. Await final blood cultures.
[2024-04-19 04:00] VITALS: BP 117/82; PULSE 69; RESP 20; TEMP 36.2; O2SAT 97
[2024-04-19] MEDS: Heparin Sodium,Porcine 5,000 UNIT/ML VIAL 5000 UNIT SUBCUT ×2 (05:11→17:34)
[2024-04-19 07:42] LABS: Glucose, Whole Blood 92 mg/dL (60-115)
[2024-04-19 08:53] LABS: Creatinine Clr Calc Pharmacy 22.8; Estimated Glomerular Filt Rate 19
--- NOTE | 2024-04-19 09:40 | PM.EVENT ---
Event Note Date of Service: 04/19/24 Time Spent With Patient Time: Total time managing care of this patient today ____ minutes.
[2024-04-19 10:16] VITALS: BP 115/67; PULSE 83; RESP 16; TEMP 36.2; O2SAT 100
[2024-04-19] MEDS: Clopidogrel Bisulfate 75 MG TABLET PO (10:18)
[2024-04-19] MEDS: Aspirin Enteric Coated 81 MG TABLET.DR PO (10:18)
[2024-04-19 10:52] VITALS: BMI 24.1
[2024-04-19 12:00] VITALS: BP 106/50; PULSE 96; RESP 20; TEMP 36.4; O2SAT 100
[2024-04-19 12:01] LABS: Glucose, Whole Blood 198 mg/dL (60-115)
--- NOTE | 2024-04-19 14:05 | HO.PM.IMPN ---
Subjective Subjective Date of Service: 04/19/24 Interval History: Seen and examined this morning Septic shock/bacteremia Downgraded from the ICU 04/18 feeling better overall, reporting left middle finger wound Review of Systems Review of Systems: Yes all other systems are reviewed and are negative Constitutional Constitutional: Denies chills and Denies fever(s) Cardiovascular Cardiovascular: Denies chest pain and Denies palpitations Endocrine Endocrine: Denies palpitations Physical Exam Vital Signs: Vital Signs: Last Vital Signs Temp 97.5 F 04/19/24 12:00 Pulse 96 04/19/24 12:00 Resp 20 04/19/24 12:00 BP 106/50 L 04/19/24 12:00 Pulse Ox 100 04/19/24 12:00 O2 Del Method Room Air 04/19/24 12:00 BMI result Body Mass Index 24.1 Objective Data Active Medications Aspirin (Aspirin Enteric Coated 81 Mg Tablet.) 81 mg PO DAILY [facility] Last Admin: 04/19/24 10:18 Dose: 81 mg Documented By: JAMAAL Atorvastatin Calcium (Atorvastatin Calcium 80 Mg Tablet) 80 mg PO BEDTIME [facility] Last Admin: 04/18/24 21:27 Dose: 80 mg Documented By: CARLOS Clopidogrel Bisulfate (Clopidogrel Bisulfate 75 Mg Tablet) 75 mg PO DAILY [facility] Last Admin: 04/19/24 10:18 Dose: 75 mg Documented By: JAMAAL Famotidine (Famotidine 20 Mg Tablet) 20 mg PO BEDTIME PRN PRN Reason: Heartburn Glucose (Glucose Gel 15 Gm Gel..Gram.) 15 gm PO Q15M PRN; Protocol PRN Reason: per Hypoglycemia Standing Ord. Heparin Sodium (Porcine) (Heparin Sodium,Porcine 5,000 Unit/Ml Vial) 5,000 unit SUBCUT Q12H [facility] Last Admin: 04/19/24 05:11 Dose: 5,000 unit Documented By: CARLOS Dextrose (D10) 250 mls @ 750 mls/hr IV Q15M PRN; Protocol PRN Reason: per Hypoglycemia Standing Ord. Vancomycin HCl 500 mg/ Sodium (Chloride) 110 mls @ 110 mls/hr IV Q24H [facility] Pharmacy Consult (Consult Rx Vancomycin Dosing) 1 each MISCELLANE DAILY PRN PRN Reason: Consult order Labs 04/18/24 05:53 04/19/24 07:40 Labs: Laboratory Results - last 24 hr 04/18/24 04/18/24 04/19/24 15:53 21:40 07:38 Estim Creat Clear Calc Estimated GFR POC Glucose 130 H 132 H 92 04/19/24 04/19/24 07:40 11:44 Estim Creat Clear Calc 22.8 Estimated GFR 19 POC Glucose 198 H Microbiology Microbiology Results: Microbiology 04/16/24 22:43 Blood Culture - Final Blood - Venous Staphylococcus aureus Streptococcus viridans group 04/16/24 22:45 Blood Culture - Final Blood - Venous Staphylococcus aureus 04/17/24 18:27 Blood Culture - Preliminary Blood - Venous Prelim: GPC Gram Stain only 04/17/24 18:27 Blood Culture - Preliminary Blood - Venous Prelim: GPC Gram Stain only Assessment and Plan (1) Bacteremia: Status: Acute Plan This is a 68-year-old male with past medical history of ESRD on maintenance hemodialysis T// through a PermCath, CAD s/p PCI in 2012, CHF, CVA x2, non-insulin dependent type 2 diabetes presents to the ED with complaints fever for the past 3 days and also fall. In the ED he was found to be hypotensive needing Levophed support so he was admitted to the ICU. After brief stay in the ICU he is weaned off of vasopressors and downgraded to the medical floor 04/17 Septic shock due to Staph bacteremia Blood cultures growing staph species; surveillance blood cultures growing 1/2 GPC No pneumonia, no joint pain, no tenderness in the spine. Possible line infection - Has a indwelling right subclavian PermCath vs left hand infection TTE ordered to rule out endocarditis>neg Started the patient on vancomycin and Zosyn-Zosyn stopped 04/18 ID consult>Line infection, continue vancomycin repeat cx pending will likely need line removed, will discuss with nephro and IR Anemia Likely due to CKD no obvious bleeding check stool occult Left hand wound We will check inflammatory markers and x-ray Unclear if bone involvement Wound care consult General surgery consult ESRD On maintenance hemodialysis / through right subclavian PermCath Nephrology consulted Nephrogenic anemia Follow CBC CAD: Status post PCI in 2022 on metoprolol 200 daily - bp soft - on hold continue aspirin, Plavix and atorvastatin. diabetes Diabetic diet ordered SSI, POCs BPH Finasteride, tamsulosin on hold for soft blood pressure, resume as tolerated thrombocytopenia appears chronic hold dvt ppx if drop below 70 DVT Prophylaxis: Heparin Attending Dr. Delgadillo Full code Quality Stroke Does the patient have a stroke diagnosis?: No VTE Prior VTE?: No VTE Risk Level:: Medical - moderate - high VTE Device Contraindication: N/A - Device Ordered VTE Drug Contraindication: Treatment Not Indicated
[2024-04-19 16:00] VITALS: BP 113/65; PULSE 89; RESP 16; TEMP 36.4; O2SAT 99
[2024-04-19 16:34] LABS: Glucose, Whole Blood 154 mg/dL (60-115)
[2024-04-19 16:40] LABS: Vancomycin Random 10.9 mcg/mL (15-20)
--- NOTE | 2024-04-19 16:48 | HE.PHANOTE ---
VANCOMYCIN POST DIALSIS LEVEL = 10.9. GIVING ONE TIME DOSE OF VANCOMYCIN 500 MG NOW. NEXT RANDOM LEVEL SCHEDULED FOR Sunday04/22/24 AFTER DIALYSIS. CHECK DAILY TO MAKE SURE PATIENT DOES NOT HAVE ANY EXTRA DIALYSIS SESSIONS.
[2024-04-19] MEDS: vancomycin HCL 500 MG in 0.9 % Sodium Chloride 100 ML 110 MG IV (17:34)
[2024-04-19 19:38] VITALS: BP 120/64; PULSE 73; RESP 20; TEMP 36.1; O2SAT 99
[2024-04-19] MEDS: Atorvastatin Calcium 80 MG TABLET PO (20:53)
[2024-04-19 21:02] LABS: Glucose, Whole Blood 109 mg/dL (60-115)
[2024-04-19 22:59] VITALS: BP 117/72; PULSE 78; RESP 20; TEMP 36; O2SAT 98
[2024-04-20 04:00] VITALS: BP 104/59; PULSE 67; RESP 20; TEMP 36.1; O2SAT 98
[2024-04-20] MEDS: Heparin Sodium,Porcine 5,000 UNIT/ML VIAL 5000 UNIT SUBCUT ×2 (05:06→16:33)
[2024-04-20 06:00] VITALS: BMI 23.7
[2024-04-20 07:43] LABS: Estimated Glomerular Filt Rate 12
[2024-04-20 08:00] VITALS: BP 116/70; PULSE 72; RESP 16; TEMP 36.2; O2SAT 100
[2024-04-20 09:01] LABS: Glucose, Whole Blood 98 mg/dL (60-115)
[2024-04-20] MEDS: Aspirin Enteric Coated 81 MG TABLET.DR PO (09:13)
[2024-04-20] MEDS: Clopidogrel Bisulfate 75 MG TABLET PO (09:13)
--- NOTE | 2024-04-20 09:14 | HO.PM.IMPN ---
Subjective Subjective Date of Service: 04/20/24 Interval History: Seen and examined this morning Septic shock/bacteremia Downgraded from the ICU 04/18 feeling better overall, reporting left middle finger wound Review of Systems Review of Systems: Yes all other systems are reviewed and are negative Constitutional Constitutional: Denies chills and Denies fever(s) Cardiovascular Cardiovascular: Denies chest pain and Denies palpitations Endocrine Endocrine: Denies palpitations Physical Exam Vital Signs: Vital Signs: Last Vital Signs Temp 97.2 F 04/20/24 08:00 Pulse 72 04/20/24 08:00 Resp 16 04/20/24 08:00 BP 116/70 04/20/24 08:00 Pulse Ox 100 04/20/24 08:00 O2 Del Method Room Air 04/20/24 08:00 BMI result Body Mass Index 23.7 Appearing in no acute distress lung sounds are clear to auscultation heart regular rate rhythm, clear S1, S2 positive bowel sounds, abdomen is soft, nontender neuro patient is alert x3, no focal deficits Objective Data Active Medications Aspirin (Aspirin Enteric Coated 81 Mg Tablet.) 81 mg PO DAILY [facility] Last Admin: 04/20/24 09:13 Dose: 81 mg Documented By: JAMAAL Atorvastatin Calcium (Atorvastatin Calcium 80 Mg Tablet) 80 mg PO BEDTIME [facility] Last Admin: 04/19/24 20:53 Dose: 80 mg Documented By: CARLOS Clopidogrel Bisulfate (Clopidogrel Bisulfate 75 Mg Tablet) 75 mg PO DAILY [facility] Last Admin: 04/20/24 09:13 Dose: 75 mg Documented By: JAMAAL Famotidine (Famotidine 20 Mg Tablet) 20 mg PO BEDTIME PRN PRN Reason: Heartburn Glucose (Glucose Gel 15 Gm Gel..Gram.) 15 gm PO Q15M PRN; Protocol PRN Reason: per Hypoglycemia Standing Ord. Heparin Sodium (Porcine) (Heparin Sodium,Porcine 5,000 Unit/Ml Vial) 5,000 unit SUBCUT Q12H [facility] Last Admin: 04/20/24 05:06 Dose: 5,000 unit Documented By: CARLOS Dextrose (D10) 250 mls @ 750 mls/hr IV Q15M PRN; Protocol PRN Reason: per Hypoglycemia Standing Ord. Vancomycin HCl 500 mg/ Sodium (Chloride) 110 mls @ 110 mls/hr IV Q24H [facility] Pharmacy Consult (Consult Rx Vancomycin Dosing) 1 each MISCELLANE DAILY PRN PRN Reason: Consult order Labs 04/18/24 05:53 04/20/24 07:03 Labs: Laboratory Results - last 24 hr 04/19/24 04/19/24 04/19/24 11:44 15:50 16:19 Hold Purple Top Estim Creat Clear Calc Estimated GFR POC Glucose 198 H 154 H Random Vancomycin 10.9 L 04/19/24 04/20/24 04/20/24 20:48 07:03 08:53 Hold Purple Top SEE NOTE Estim Creat Clear Calc 15.0 Estimated GFR 12 POC Glucose 109 98 Random Vancomycin Microbiology Microbiology Results: Microbiology 04/17/24 18:27 Blood Culture - Final Blood - Venous Staphylococcus aureus 04/17/24 18:27 Blood Culture - Final Blood - Venous Staphylococcus aureus 04/16/24 22:43 Blood Culture - Final Blood - Venous Staphylococcus aureus Streptococcus viridans group 04/16/24 22:45 Blood Culture - Final Blood - Venous Staphylococcus aureus Assessment and Plan (1) Bacteremia: Status: Acute Plan This is a 68-year-old male with past medical history of ESRD on maintenance hemodialysis T// through a PermCath, CAD s/p PCI in 2012, CHF, CVA x2, non-insulin dependent type 2 diabetes presents to the ED with complaints fever for the past 3 days and also fall. In the ED he was found to be hypotensive needing Levophed support so he was admitted to the ICU. After brief stay in the ICU he is weaned off of vasopressors and downgraded to the medical floor 04/17 Left hand wound with likely osteomyelitis ? source of bacteremia Wound care consult orthopedic surgery consult Septic shock due to Staph bacteremia Blood cultures growing staph species No pneumonia, no joint pain, no tenderness in the spine. Possible line infection - Has a indwelling right subclavian PermCath vs left hand infection TTE ordered to rule out endocarditis>neg Started the patient on vancomycin and Zosyn-Zosyn stopped 04/18 ID consult>Line infection, continue vancomycin repeat cx pending will likely need line removed, will discuss with nephro and IR Anemia Likely due to CKD no obvious bleeding check stool occult ESRD On maintenance hemodialysis T// through right subclavian PermCath Nephrology consulted Nephrogenic anemia Follow CBC CAD: Status post PCI in 2022 on metoprolol 200 daily - bp soft - on hold continue aspirin, Plavix and atorvastatin. diabetes Diabetic diet ordered SSI, POCs BPH Finasteride, tamsulosin on hold for soft blood pressure, resume as tolerated thrombocytopenia appears chronic hold dvt ppx if drop below 70 DVT Prophylaxis: Heparin Attending Dr. Delgadillo Full code Quality Stroke Does the patient have a stroke diagnosis?: No VTE Prior VTE?: No VTE Risk Level:: Medical - moderate - high VTE Device Contraindication: N/A - Device Ordered VTE Drug Contraindication: Treatment Not Indicated
--- NOTE | 2024-04-20 09:56 | PM.EVENT ---
Event Note Date of Service: 04/20/24 Event Note: 68 YO M admitted to hospital for sepsis due to probable line infx Noted to have L hand wound Chronic problem X rays concerning for potential osteomyelitis Patient evaluated by Dr. Upton, and no acute orthopedic intervention is indicated Patient may f/u outpatient in clinic Continue with all recommendations per Medicine Time Spent With Patient Time: Total time managing care of this patient today ____ minutes.
[2024-04-20 10:54] LABS: Anion Gap 16 (12-20); Blood Urea Nitrogen 46 mg/dL (9-16); Calcium 8.3 mg/dL (8.4-10.2); Carbon Dioxide 26 mmol/L (22-29); Chloride 100 mmol/L (96-108); Creatinine Clr Calc Pharmacy 14.5; Estimated Glomerular Filt Rate 11; Glucose Random 164 mg/dL (60-115); Potassium 3.9 mmol/L (3.3-5.1); Sodium 138 mmol/L (135-145)
[2024-04-20 12:00] VITALS: BP 110/57; PULSE 85; RESP 18; TEMP 36.3; O2SAT 95
[2024-04-20 12:40] LABS: Glucose, Whole Blood 158 mg/dL (60-115)
[2024-04-20 14:33] LABS: Appearance Urine Clear; Color Urine Yellow; Glucose Urine UA 100 mg/dL (Negative); Leukocyte Esterase Urine Trace (Negative); Nitrite Urine Negative (Negative); UMIC TRIGGER UACC YES; Urine Blood Negative (Negative); Urine Ketones Negative (Negative); Urine Protein 100 (2+) mg/dL (Neg-Trace)
[2024-04-20 14:38] LABS: Bacteria Urine None Seen (None Seen); RBC Urine 0-2 /HPF (0-2); WBC Urine 0-5 /HPF (0-5)
[2024-04-20 14:44] LABS: Amphetamine Screen Urine Not Detected (Not Detect); Barbiturates, Urine Not Detected (Not Detect); Benzodiazepines Screen Urine Not Detected (Not Detect); Buprenorphine Scr Not Detected (Not Detect); Cannabinoid Screen Urine Not Detected (Not Detect); Cocaine Screen Urine Not Detected (Not Detect); Fentanyl, urine Not Detected (Not Detect); Methadone Screen, Urine Not Detected (Not Detect); Opiate Screen Urine Not Detected (Not Detect); Oxycodone Screen Urine Not Detected (Not Detect); Phencyclidine Screen Urine Not Detected (Not Detect)
[2024-04-20 16:00] VITALS: BP 114/72; PULSE 83; RESP 18; TEMP 36.3; O2SAT 18
[2024-04-20 16:53] LABS: Glucose, Whole Blood 143 mg/dL (60-115)
[2024-04-20 20:00] VITALS: BP 108/65; PULSE 79; RESP 20; TEMP 36.5; O2SAT 100
[2024-04-20 20:23] LABS: Glucose, Whole Blood 122 mg/dL (60-115)
[2024-04-20] MEDS: Atorvastatin Calcium 80 MG TABLET PO (21:04)
[2024-04-21] VITALS: BP 122/63; PULSE 73; RESP 20; TEMP 36.1; O2SAT 99
[2024-04-21 03:46] VITALS: BP 122/67; PULSE 68; RESP 20; TEMP 36.1; O2SAT 96
[2024-04-21 05:47] VITALS: BMI 23.8
[2024-04-21 07:13] VITALS: BP 113/63; PULSE 71; RESP 18; TEMP 36.3; O2SAT 99
[2024-04-21 07:28] LABS: Creatinine Clr Calc Pharmacy 11.8; Estimated Glomerular Filt Rate 9
[2024-04-21 07:33] LABS: Glucose, Whole Blood 97 mg/dL (60-115)
[2024-04-21 08:09] LABS: Hematocrit 26.7 % (42.0-52.0); Hemoglobin 8.8 g/dl (14.0-18.0); Mean Corpuscular Hemoglobin 30.7 pg (27.0-33.0); Mean Platelet Volume 11.5 fL (9.4-12.4); Platelet Count 123 X10*3/uL (160-400); Red Blood Count 2.87 X10*6/uL (4.60-5.80); Red Cell Distribution Width 15.6 % (11.0-16.0); White Blood Count 6.1 X10*3/uL (4.8-10.8)
[2024-04-21] MEDS: Aspirin Enteric Coated 81 MG TABLET.DR PO (08:38)
[2024-04-21] MEDS: Clopidogrel Bisulfate 75 MG TABLET PO (08:38)
--- NOTE | 2024-04-21 10:26 | HO.PM.IMPN ---
Subjective Subjective Date of Service: 04/21/24 Interval History: Seen and examined this morning Septic shock/bacteremia Downgraded from the ICU 04/18 feeling better overall, reporting left middle finger wound Review of Systems Review of Systems: Yes all other systems are reviewed and are negative Constitutional Constitutional: Denies chills and Denies fever(s) Cardiovascular Cardiovascular: Denies chest pain and Denies palpitations Endocrine Endocrine: Denies palpitations Physical Exam Vital Signs: Vital Signs: Last Vital Signs Temp 97.4 F 04/21/24 07:13 Pulse 71 04/21/24 07:13 Resp 18 04/21/24 07:13 BP 113/63 04/21/24 07:13 Pulse Ox 99 04/21/24 07:13 O2 Del Method Room Air 04/21/24 07:13 O2 Flow Rate 2 04/21/24 03:46 BMI result Body Mass Index 23.8 Objective Data Active Medications Aspirin (Aspirin Enteric Coated 81 Mg Tablet.) 81 mg PO DAILY [facility] Last Admin: 04/21/24 08:38 Dose: 81 mg Documented By: CALI Atorvastatin Calcium (Atorvastatin Calcium 80 Mg Tablet) 80 mg PO BEDTIME [facility] Last Admin: 04/20/24 21:04 Dose: 80 mg Documented By: CARLOS Clopidogrel Bisulfate (Clopidogrel Bisulfate 75 Mg Tablet) 75 mg PO DAILY [facility] Last Admin: 04/21/24 08:38 Dose: 75 mg Documented By: CALI Famotidine (Famotidine 20 Mg Tablet) 20 mg PO BEDTIME PRN PRN Reason: Heartburn Glucose (Glucose Gel 15 Gm Gel..Gram.) 15 gm PO Q15M PRN; Protocol PRN Reason: per Hypoglycemia Standing Ord. Heparin Sodium (Porcine) (Heparin Sodium,Porcine 5,000 Unit/Ml Vial) 5,000 unit SUBCUT Q12H [facility] Last Admin: 04/21/24 07:07 Dose: Not Given Documented By: CARLOS Non-Admin Reason: Lab order pending MD order Dextrose (D10) 250 mls @ 750 mls/hr IV Q15M PRN; Protocol PRN Reason: per Hypoglycemia Standing Ord. Vancomycin HCl 500 mg/ Sodium (Chloride) 110 mls @ 110 mls/hr IV Q24H [facility] Pharmacy Consult (Consult Rx Vancomycin Dosing) 1 each MISCELLANE DAILY PRN PRN Reason: Consult order Labs 04/21/24 08:00 04/21/24 06:51 Labs: Laboratory Results - last 24 hr 04/20/24 04/20/24 04/20/24 09:49 12:37 14:00 MCV MCH MCHC RDW Plt Count MPV Absolute Nucleated RBC Nucleated RBC % (auto) Hold Purple Top Anion Gap 16 Estim Creat Clear Calc 14.5 Estimated GFR 11 POC Glucose 158 H Random Glucose 164 H Calcium 8.3 L Urine Color Yellow Urine Appearance Clear Urine pH 8.0 Ur Specific [place] 1.010 Urine Protein 100 (2+) H Urine Glucose (UA) 100 H Urine Ketones Negative Urine Blood Negative Urine Nitrite Negative Ur Leukocyte Esterase Trace H Urine RBC 0-2 Urine WBC 0-5 Ur Squamous Epith Cells 3-5 Urine Bacteria None Seen Hyaline Casts 3-5 Urine Opiates Screen Not Detected Ur Buprenorphine Scrn Not Detected Ur Oxycodone Screen Not Detected Urine Methadone Screen Not Detected Urine Fentanyl Screen Not Detected Ur Barbiturates Screen Not Detected Ur Phencyclidine Scrn Not Detected Ur Amphetamines Screen Not Detected U Benzodiazepines Scrn Not Detected Urine Cocaine Screen Not Detected U Marijuana (THC) Screen Not Detected 04/20/24 04/20/24 04/21/24 16:48 20:18 06:51 MCV MCH MCHC RDW Plt Count MPV Absolute Nucleated RBC Nucleated RBC % (auto) Hold Purple Top SEE NOTE Anion Gap Estim Creat Clear Calc 11.8 Estimated GFR 9 POC Glucose 143 H 122 H Random Glucose Calcium Urine Color Urine Appearance Urine pH Ur Specific [place] Urine Protein Urine Glucose (UA) Urine Ketones Urine Blood Urine Nitrite Ur Leukocyte Esterase Urine RBC Urine WBC Ur Squamous Epith Cells Urine Bacteria Hyaline Casts Urine Opiates Screen Ur Buprenorphine Scrn Ur Oxycodone Screen Urine Methadone Screen Urine Fentanyl Screen Ur Barbiturates Screen Ur Phencyclidine Scrn Ur Amphetamines Screen U Benzodiazepines Scrn Urine Cocaine Screen U Marijuana (THC) Screen 04/21/24 04/21/24 07:24 08:00 MCV 93.0 MCH 30.7 MCHC 33.0 RDW 15.6 Plt Count 123 L D MPV 11.5 Absolute Nucleated RBC 0.000 Nucleated RBC % (auto) 0.0 Hold Purple Top Anion Gap Estim Creat Clear Calc Estimated GFR POC Glucose 97 Random Glucose Calcium Urine Color Urine Appearance Urine pH Ur Specific [place] Urine Protein Urine Glucose (UA) Urine Ketones Urine Blood Urine Nitrite Ur Leukocyte Esterase Urine RBC Urine WBC Ur Squamous Epith Cells Urine Bacteria Hyaline Casts Urine Opiates Screen Ur Buprenorphine Scrn Ur Oxycodone Screen Urine Methadone Screen Urine Fentanyl Screen Ur Barbiturates Screen Ur Phencyclidine Scrn Ur Amphetamines Screen U Benzodiazepines Scrn Urine Cocaine Screen U Marijuana (THC) Screen Microbiology Microbiology Results: Microbiology 04/19/24 14:55 Blood Culture - Preliminary Blood - Central Line No growth after 24 hours. 04/19/24 14:54 Blood Culture - Preliminary Blood - Central Line No growth after 24 hours. Assessment and Plan (1) Bacteremia: Status: Acute Plan This is a 68-year-old male with past medical history of ESRD on maintenance hemodialysis T// through a PermCath, CAD s/p PCI in 2012, CHF, CVA x2, non-insulin dependent type 2 diabetes presents to the ED with complaints fever for the past 3 days and also fall. In the ED he was found to be hypotensive needing Levophed support so he was admitted to the ICU. After brief stay in the ICU he is weaned off of vasopressors and downgraded to the medical floor 04/17 Left hand wound with likely osteomyelitis ? source of bacteremia Wound care consult orthopedic surgery>no intervention needed at this time Septic shock due to Staph bacteremia Blood cultures growing staph species No pneumonia, no joint pain, no tenderness in the spine. Possible line infection - Has a indwelling right subclavian PermCath vs left hand infection TTE ordered to rule out endocarditis>neg Started the patient on vancomycin and Zosyn-Zosyn stopped 04/18 ID consult>Line infection, continue vancomycin repeat cx negative after 24hrs line removal ordered for after dialysis Anemia Likely due to CKD no obvious bleeding check stool occult ESRD On maintenance hemodialysis T/ through right subclavian PermCath Nephrology consulted Nephrogenic anemia Follow CBC CAD Status post PCI in 2022 on metoprolol 200 daily - bp soft - on hold continue aspirin, Plavix and atorvastatin. diabetes Diabetic diet ordered SSI, POCs BPH Finasteride, tamsulosin on hold for soft blood pressure, resume as tolerated thrombocytopenia appears chronic hold dvt ppx if drop below 70 DVT Prophylaxis: Heparin Attending Dr. Duarte Full code Quality Stroke Does the patient have a stroke diagnosis?: No VTE Prior VTE?: No VTE Risk Level:: Medical - moderate - high VTE Device Contraindication: N/A - Device Ordered VTE Drug Contraindication: Treatment Not Indicated
[2024-04-21 11:20] VITALS: BP 120/69; PULSE 78; RESP 20; TEMP 36.3; O2SAT 100
[2024-04-21 11:33] LABS: Glucose, Whole Blood 107 mg/dL (60-115)
[2024-04-21 16:00] VITALS: BP 130/74; PULSE 76; RESP 20; TEMP 36.4; O2SAT 100
--- NOTE | 2024-04-21 16:20 | PM.PNNEP ---
Subjective Subjective Date of Service: 04/21/24 Interval history: Seen and examined,e vents noted Physical Exam Vital Signs: Vital Signs: Last Vital Signs Temp 97.5 F 04/21/24 16:00 Pulse 76 04/21/24 16:00 Resp 20 04/21/24 16:00 BP 130/74 04/21/24 16:00 Pulse Ox 100 04/21/24 16:00 O2 Del Method Room Air 04/21/24 16:00 O2 Flow Rate 2 04/21/24 03:46 BMI result Body Mass Index 23.8 Const: Other: Appearance: Alert. Oriented X3. No acute distress. Eyes: Pupils equal, round and reactive to light. ENT: Pharynx normal. Neck: Normal inspection. Neck supple. No lymph nodes noted. No crepitus CVS: Tachycardic, heart rate in the 120s. Pulses normal. Normal S1 and S2 Respiratory: No respiratory distress. Breath sounds normal. No Wheezing. No rales Abdomen: Soft and nontender. No rigidity. No distention. Skin: Skin warm and dry. Normal skin color. Normal skin turgor. Extremities: No lower extremity edema. No Lacerations. No Rash Neuro: Oriented X 3. No motor deficit. No sensory deficit. Moving all extremities. No slurred speech. CN 2 through 12 grossly intact Psych: calm, cooperative, normal affect General: comfortable, no acute distress, alert and awake Nutritional Appearance: average body habitus Orientation/consciousness: patient oriented x3 Resp: Effort & Inspection: normal respiratory effort, able to speak in complete sentences, no respiratory distress and no use of accessory muscles Cardio: Rate: regular rate GI: Inspection: No distended Palpation (GI): Soft to palpation and nontender Skin: Other: left middle finger with ulcer, purulent drainage Neuro: General: patient oriented x3, moves all extremities and CN's II-XI intact bilaterally Cranial nerves: Yes Normal hearing present Speech: No Abnormal speech present Extrem: General: Yes normal to inspection and Yes no pedal edema Psych: Other: confusion Objective Data Labs 04/21/24 08:00 04/21/24 06:51 Labs: Laboratory Results - last 24 hr 04/20/24 04/20/24 04/21/24 16:48 20:18 06:51 WBC RBC Hgb Hct MCV MCH MCHC RDW Plt Count MPV Absolute Nucleated RBC Nucleated RBC % (auto) Hold Purple Top SEE NOTE Creatinine 6.36 H* Estim Creat Clear Calc 11.8 Estimated GFR 9 POC Glucose 143 H 122 H 04/21/24 04/21/24 04/21/24 07:24 08:00 11:18 WBC 6.1 RBC 2.87 L Hgb 8.8 L Hct 26.7 L MCV 93.0 MCH 30.7 MCHC 33.0 RDW 15.6 Plt Count 123 L D MPV 11.5 Absolute Nucleated RBC 0.000 Nucleated RBC % (auto) 0.0 Hold Purple Top Creatinine Estim Creat Clear Calc Estimated GFR POC Glucose 97 107 Microbiology Microbiology Results: Microbiology 04/19/24 14:55 Blood - Central Line Blood Culture - Preliminary No growth after 24 hours. 04/19/24 14:54 Blood - Central Line Blood Culture - Preliminary No growth after 24 hours. 04/17/24 18:27 Blood - Venous Blood Culture - Final Staphylococcus aureus 04/17/24 18:27 Blood - Venous Blood Culture - Final Staphylococcus aureus 04/16/24 22:43 Blood - Venous Blood Culture - Final Staphylococcus aureus Streptococcus viridans group 04/16/24 22:45 Blood - Venous Blood Culture - Final Staphylococcus aureus Procedures Date of Service Date of Service: 04/21/24 Assessment & Plan Assessment and plan (1) CRYSTAL (acute kidney injury): Status: Acute (2) CKD (chronic kidney disease): Status: Acute Plan 68yo M with CAD s/p STEMI 2022 with PCI, CHF, CVA x2, DM2, CKD3 recent admit for CRYSTAL/hyperK/metabolic acidosis 1. CRYSTAL: renal func was not bouncing back so HD started and at this point no signs of rtenal recovery outpt HD is at [facility] - 1st shift ( [phone]) 2. CKD 4 in opast but now HD dependent BSL Scr 4.5 on 02/2024 at last OV; h/o DN/HTN adv renal dis 3. Nephrogenic Anemia 4. Satph bacteremoia: c/w line sepsis REC: HD per TTS schedule; Pcath to be removed and new one placed after 48 hrs of bld cult neg ABX as per ID --duration epo as ordered will follow w team Time Spent With Patient Time: Total time managing care of this patient today ____ minutes. Progress Note: Quality Stroke Does the patient have a stroke diagnosis?: No
[2024-04-21 16:25] LABS: Glucose, Whole Blood 142 mg/dL (60-115)
[2024-04-21] MEDS: Heparin Sodium,Porcine 5,000 UNIT/ML VIAL 5000 UNIT SUBCUT (18:00)
[2024-04-21 19:27] VITALS: BP 146/74; PULSE 79; RESP 20; TEMP 36.4; O2SAT 99
[2024-04-21 19:35] LABS: Glucose, Whole Blood 144 mg/dL (60-115)
[2024-04-21] MEDS: Atorvastatin Calcium 80 MG TABLET PO (20:10)
[2024-04-22 03:24] VITALS: BP 133/73; PULSE 79; RESP 20; TEMP 36.1; O2SAT 98
[2024-04-22] MEDS: Heparin Sodium,Porcine 5,000 UNIT/ML VIAL 5000 UNIT SUBCUT ×2 (06:03→16:27)
[2024-04-22 07:13] LABS: Creatinine Clr Calc Pharmacy 10.5; Estimated Glomerular Filt Rate 8
[2024-04-22 07:26] LABS: Glucose, Whole Blood 102 mg/dL (60-115)
[2024-04-22 07:30] VITALS: BP 139/72; PULSE 72; RESP 20; TEMP 36.8; O2SAT 96
--- NOTE | 2024-04-22 08:17 | P.PNIM_ITS ---
Subjective Subjective Date of Service: 04/22/24 Interval History: Seen and examined this morning Septic shock/bacteremia Downgraded from the ICU 04/18 feeling better overall, reporting left middle finger wound Review of Systems Review of Systems: Yes all other systems are reviewed and are negative Constitutional Constitutional: Denies chills and Denies fever(s) Cardiovascular Cardiovascular: Denies chest pain and Denies palpitations Endocrine Endocrine: Denies palpitations Physical Exam 2 Vital Signs: Vital Signs: Last Vital Signs Temp 98.2 F 04/22/24 07:30 Pulse 72 04/22/24 07:30 Resp 20 04/22/24 07:30 BP 139/72 04/22/24 07:30 Pulse Ox 96 04/22/24 07:30 O2 Del Method Room Air 04/22/24 07:30 O2 Flow Rate 2 04/21/24 03:46 BMI result Body Mass Index 23.8 Appearing in no acute distress lung sounds are clear to auscultation heart regular rate rhythm, clear S1, S2 positive bowel sounds, abdomen is soft, nontender neuro patient is alert x3, no focal deficits Objective Data Active Medications Aspirin (Aspirin Enteric Coated 81 Mg Tablet.) 81 mg PO DAILY [facility] Last Admin: 04/21/24 08:38 Dose: 81 mg Documented By: CALI Atorvastatin Calcium (Atorvastatin Calcium 80 Mg Tablet) 80 mg PO BEDTIME [facility] Last Admin: 04/21/24 20:10 Dose: 80 mg Documented By: JUN Clopidogrel Bisulfate (Clopidogrel Bisulfate 75 Mg Tablet) 75 mg PO DAILY [facility] Last Admin: 04/21/24 08:38 Dose: 75 mg Documented By: CALI Famotidine (Famotidine 20 Mg Tablet) 20 mg PO BEDTIME PRN PRN Reason: Heartburn Glucose (Glucose Gel 15 Gm Gel..Gram.) 15 gm PO Q15M PRN; Protocol PRN Reason: per Hypoglycemia Standing Ord. Heparin Sodium (Porcine) (Heparin Sodium,Porcine 5,000 Unit/Ml Vial) 5,000 unit SUBCUT Q12H [facility] Last Admin: 04/22/24 06:03 Dose: 5,000 unit Documented By: JUN Dextrose (D10) 250 mls @ 750 mls/hr IV Q15M PRN; Protocol PRN Reason: per Hypoglycemia Standing Ord. Vancomycin HCl 500 mg/ Sodium (Chloride) 110 mls @ 110 mls/hr IV Q24H [facility] Metoprolol Succinate (Metoprolol Succinate Er 100 Mg Tab.Er.24h) 200 mg PO DAILY [facility]; Protocol Pharmacy Consult (Consult Rx Vancomycin Dosing) 1 each MISCELLANE DAILY PRN PRN Reason: Consult order Tamsulosin HCl (Tamsulosin Hcl 0.4 Mg Capsule) 0.4 mg PO DAILY [facility] Labs 04/21/24 08:00 04/22/24 06:30 Labs: Laboratory Results - last 24 hr 04/21/24 04/21/24 04/21/24 11:18 16:14 19:31 Hold Purple Top Estim Creat Clear Calc Estimated GFR POC Glucose 107 142 H 144 H 04/22/24 04/22/24 06:30 07:23 Hold Purple Top SEE NOTE Estim Creat Clear Calc 10.5 Estimated GFR 8 POC Glucose 102 Microbiology Microbiology Results: Microbiology 04/19/24 14:55 Blood Culture - Preliminary Blood - Central Line No growth after 48 hours. 04/19/24 14:54 Blood Culture - Preliminary Blood - Central Line No growth after 48 hours. Assessment and Plan (1) Bacteremia: Status: Acute Plan This is a 68-year-old male with past medical history of ESRD on maintenance hemodialysis T// through a PermCath, CAD s/p PCI in 2012, CHF, CVA x2, non- insulin dependent type 2 diabetes presents to the ED with complaints fever for the past 3 days and also fall. In the ED he was found to be hypotensive needing Levophed support so he was admitted to the ICU. After brief stay in the ICU he is weaned off of vasopressors and downgraded to the medical floor 04/17 Left hand wound with likely osteomyelitis ? source of bacteremia Wound care consult orthopedic surgery>no intervention needed at this time Septic shock due to Staph bacteremia Blood cultures growing staph species No pneumonia, no joint pain, no tenderness in the spine. Possible line infection - Has a indwelling right subclavian PermCath vs left hand infection TTE ordered to rule out endocarditis>neg Started the patient on vancomycin and Zosyn-Zosyn stopped 04/18 ID consult>Line infection, IV kefzol for osteo and bacteremia repeat cx negative after 48hrs line removal ordered for after dialysis today and replace Anemia Likely due to CKD no obvious bleeding check stool occult ESRD On maintenance hemodialysis T// through right subclavian PermCath Nephrology following Nephrogenic anemia Follow CBC CAD Status post PCI in 2022 on metoprolol 200 daily - bp soft - on hold continue aspirin, Plavix and atorvastatin. diabetes Diabetic diet ordered SSI, POCs BPH Finasteride, tamsulosin on hold for soft blood pressure, resume as tolerated thrombocytopenia appears chronic hold dvt ppx if drop below 70 DVT Prophylaxis: Heparin Attending Dr. Duarte Full code DISPO plan for home when medically clear Quality Stroke Does the patient have a stroke diagnosis?: No VTE Prior VTE?: No VTE Risk Level:: Medical - moderate - high VTE Device Contraindication: N/A - Device Ordered VTE Drug Contraindication: Treatment Not Indicated
--- NOTE | 2024-04-22 08:41 | P.PNNP_ITS ---
Subjective Subjective Date of Service: 04/22/24 Interval history: Seen and examined this morning in dialysis Physical Exam 2 Vital Signs: Vital Signs: Last Vital Signs Temp 98.2 F 04/22/24 07:30 Pulse 72 04/22/24 07:30 Resp 20 04/22/24 07:30 BP 139/72 04/22/24 07:30 Pulse Ox 96 04/22/24 07:30 O2 Del Method Room Air 04/22/24 07:30 O2 Flow Rate 2 04/21/24 03:46 BMI result Body Mass Index 23.8 cvs: s1s2 Rs; cta ABd; soft Objective Data Labs 04/21/24 08:00 04/22/24 06:30 Labs: Laboratory Results - last 24 hr 04/21/24 04/21/24 04/21/24 11:18 16:14 19:31 Hold Purple Top Creatinine Estim Creat Clear Calc Estimated GFR POC Glucose 107 142 H 144 H 04/22/24 04/22/24 06:30 07:23 Hold Purple Top SEE NOTE Creatinine 7.15 H* Estim Creat Clear Calc 10.5 Estimated GFR 8 POC Glucose 102 Microbiology Microbiology Results: Microbiology 04/19/24 14:55 Blood - Central Line Blood Culture - Preliminary No growth after 48 hours. 04/19/24 14:54 Blood - Central Line Blood Culture - Preliminary No growth after 48 hours. 04/17/24 18:27 Blood - Venous Blood Culture - Final Staphylococcus aureus 04/17/24 18:27 Blood - Venous Blood Culture - Final Staphylococcus aureus 04/16/24 22:43 Blood - Venous Blood Culture - Final Staphylococcus aureus Streptococcus viridans group 04/16/24 22:45 Blood - Venous Blood Culture - Final Staphylococcus aureus Procedures Date of Service Date of Service: 04/22/24 Assessment & Plan Assessment and plan (1) CRYSTAL (acute kidney injury): Status: Acute Plan 68yo M with CAD s/p STEMI 2022 with PCI, CHF, CVA x2, DM2, CKD3 recent admit for CRYSTAL/hyperK/metabolic acidosis 1. CRYSTAL: renal func was not bouncing back so HD started and at this point no signs of rtenal recovery outpt HD is at [facility] - 1st shift ( [phone]) 2. CKD 4 in opast but now HD dependent BSL Scr 4.5 on 02/2024 at last OV; h/o DN/HTN adv renal dis 3. Nephrogenic Anemia 4. Satph bacteremoia: c/w line sepsis REC: HD per TTS schedule; Pcath to be removed and new one placed after 48 hrs of bld cult neg ABX as per ID --duration epo as ordered Time Spent With Patient Time: Total time managing care of this patient today ____ minutes. Progress Note: Quality Stroke Does the patient have a stroke diagnosis?: No
[2024-04-22 11:54] LABS: Glucose, Whole Blood 128 mg/dL (60-115)
[2024-04-22 11:56] VITALS: BP 125/72; PULSE 85; RESP 20; TEMP 36.7; O2SAT 100
[2024-04-22] MEDS: Metoprolol Succinate ER 100 MG TAB.ER.24H 200 MG PO (11:58)
[2024-04-22] MEDS: Tamsulosin HCL 0.4 MG CAPSULE PO (11:59)
--- NOTE | 2024-04-22 12:25 | HO.WOUND ---
Addendum entered by Praveena Larose RN 04/22/24 16:18: Wound Consult: Attempted Second attempt patient was working with phlebotomy will attempt at future date or time. Addendum entered by Praveena Larose RN 04/22/24 12:26: Wound Consult: Attempted 68yr old?male admitted to [facility] [place] on 04/17/24 - See progress notes and H&P for detailed history.? Wound consult placed for Left Middle Finger wound.?Arrival to bedside patient was off unit at the time of my attempt - will attempt at future date and or time. Original Note: Wound Consult: Initial 68yr old?male admitted to [facility] [place] on 04/17/24 - See progress notes and H&P for detailed history.? Wound consult placed for Left Middle Finger wound.?Arrival to bedside patient was off unit at the time of my attempt - will attempt at future date and or time.
--- NOTE | 2024-04-22 14:31 | PM.PROC ---
Brief Operative Note Date of procedure: 04/22/24 Pre-op diagnosis: Bacteremia Post-op diagnosis: same Procedure: Right IJ Permcath removed. Tip sent for culture. No immediate complications. Anesthesia: local
[2024-04-22] MEDS: ceFAZolin Sodium/Dextrose,Iso 2 GM/50 ML PIGGYBACK IV (14:58)
[2024-04-22 15:52] VITALS: BP 109/67; PULSE 72; RESP 16; TEMP 36.4; O2SAT 100
[2024-04-22 16:09] LABS: Glucose, Whole Blood 114 mg/dL (60-115)
[2024-04-22 16:47] LABS: Vancomycin Random 10.1 mcg/mL (15-20)
[2024-04-22 20:00] VITALS: BP 105/66; PULSE 71; RESP 20; TEMP 36.5; O2SAT 100
[2024-04-22] MEDS: Atorvastatin Calcium 80 MG TABLET PO (20:24)
[2024-04-22 21:40] LABS: Glucose, Whole Blood 144 mg/dL (60-115)
[2024-04-22 23:23] VITALS: BP 98/59; PULSE 72; RESP 18; TEMP 36.2; O2SAT 96
[2024-04-23 03:14] VITALS: BP 104/60; PULSE 71; RESP 18; TEMP 36.3; O2SAT 95
[2024-04-23] MEDS: Heparin Sodium,Porcine 5,000 UNIT/ML VIAL 5000 UNIT SUBCUT ×2 (05:47→17:15)
[2024-04-23 07:18] LABS: Creatinine Clr Calc Pharmacy 13.7; Estimated Glomerular Filt Rate 10
--- NOTE | 2024-04-23 07:32 | HO.PM.IMPN ---
Subjective Subjective Date of Service: 04/23/24 Interval History: Seen and examined this morning Septic shock/bacteremia Downgraded from the ICU 04/18 feeling better overall, reporting left middle finger wound dialysis cath removed 04/22/24 Review of Systems Review of Systems: Yes all other systems are reviewed and are negative Constitutional Constitutional: Denies chills and Denies fever(s) Cardiovascular Cardiovascular: Denies chest pain and Denies palpitations Endocrine Endocrine: Denies palpitations Physical Exam Vital Signs: Vital Signs: Last Vital Signs Temp 97.4 F 04/23/24 03:14 Pulse 71 04/23/24 03:14 Resp 18 04/23/24 03:14 BP 104/60 04/23/24 03:14 Pulse Ox 95 04/23/24 03:14 O2 Del Method Room Air 04/23/24 03:14 O2 Flow Rate 2 04/21/24 03:46 BMI result Body Mass Index 23.8 Appearing in no acute distress lung sounds are clear to auscultation heart regular rate rhythm, clear S1, S2 positive bowel sounds, abdomen is soft, nontender neuro patient is alert x3, no focal deficits Objective Data Active Medications Aspirin (Aspirin Enteric Coated 81 Mg Tablet.Dr) 81 mg PO DAILY [facility] Last Admin: 04/22/24 11:56 Dose: Not Given Documented By: ALEXIS Non-Admin Reason: Pt getting a permacath Atorvastatin Calcium (Atorvastatin Calcium 80 Mg Tablet) 80 mg PO BEDTIME [facility] Last Admin: 04/22/24 20:24 Dose: 80 mg Documented By: JUN Clopidogrel Bisulfate (Clopidogrel Bisulfate 75 Mg Tablet) 75 mg PO DAILY [facility] Last Admin: 04/22/24 11:56 Dose: Not Given Documented By: ALEXIS Non-Admin Reason: Pt getting a permacath Famotidine (Famotidine 20 Mg Tablet) 20 mg PO BEDTIME PRN PRN Reason: Heartburn Glucose (Glucose Gel 15 Gm Gel..Gram.) 15 gm PO Q15M PRN; Protocol PRN Reason: per Hypoglycemia Standing Ord. Heparin Sodium (Porcine) (Heparin Sodium,Porcine 5,000 Unit/Ml Vial) 5,000 unit SUBCUT Q12H [facility] Last Admin: 04/23/24 05:47 Dose: 5,000 unit Documented By: JONATHAN Dextrose (D10) 250 mls @ 750 mls/hr IV Q15M PRN; Protocol PRN Reason: per Hypoglycemia Standing Ord. Cefazolin Sodium/Dextrose (Ancef) 2 gm in 50 mls @ 100 mls/hr IV TuThSa@1600 [facility] Last Infusion: 04/22/24 15:35 Dose: Infused Documented By: ALEXIS Metoprolol Succinate (Metoprolol Succinate Er 100 Mg Tab.Er.24h) 200 mg PO DAILY [facility]; Protocol Last Admin: 04/22/24 11:58 Dose: 200 mg Documented By: ALEXIS Tamsulosin HCl (Tamsulosin Hcl 0.4 Mg Capsule) 0.4 mg PO DAILY [facility] Last Admin: 04/22/24 11:59 Dose: 0.4 mg Documented By: ALEXIS Labs 04/21/24 08:00 04/23/24 06:43 Labs: Laboratory Results - last 24 hr 04/22/24 04/22/24 04/22/24 11:51 15:54 16:17 Hold Purple Top Estim Creat Clear Calc Estimated GFR POC Glucose 128 H 114 Random Vancomycin 10.1 L 04/22/24 04/23/24 21:35 06:43 Hold Purple Top SEE NOTE Estim Creat Clear Calc 13.7 Estimated GFR 10 POC Glucose 144 H Random Vancomycin Assessment and Plan (1) Bacteremia: Status: Acute Plan This is a 68-year-old male with past medical history of ESRD on maintenance hemodialysis T// through a PermCath, CAD s/p PCI in 2012, CHF, CVA x2, non-insulin dependent type 2 diabetes presents to the ED with complaints fever for the past 3 days and also fall. In the ED he was found to be hypotensive needing Levophed support so he was admitted to the ICU. After brief stay in the ICU he is weaned off of vasopressors and downgraded to the medical floor 04/17 Left hand wound with likely osteomyelitis Wound care consult orthopedic surgery>no intervention needed at this time Septic shock due to Staph bacteremia likely MSSA sepsis resolved right subclavian PermCath and left finger osteo TTE ordered to rule out endocarditis>neg s/p vancomycin and Zosyn ID consult>Line infection, IV kefzol for osteo and bacteremia (4 weeks) to be given at dialysis repeat cx from line negative after 48hrs, cath tip cxs pending line removed 04/22/[address] a new line 04/24/24 Anemia Likely due to CKD no obvious bleeding check stool occult ESRD On maintenance hemodialysis through right subclavian PermCath Nephrology following Nephrogenic anemia Follow CBC CAD Status post PCI in 2022 metoprolol 200 daily continue aspirin, Plavix and atorvastatin. diabetes 2 Diabetic diet ordered SSI, POCs BPH continue flomax, stopped finesteride (low BP) thrombocytopenia appears chronic hold dvt ppx if drop below 70 DVT Prophylaxis: Heparin Attending Dr. Duarte Full code DISPO plan for home when medically clear Quality Stroke Does the patient have a stroke diagnosis?: No VTE Prior VTE?: No VTE Risk Level:: Medical - moderate - high VTE Device Contraindication: N/A - Device Ordered VTE Drug Contraindication: Treatment Not Indicated
[2024-04-23 07:35] VITALS: BP 91/58; PULSE 136; RESP 17; TEMP 36.3; O2SAT 94
[2024-04-23 08:25] LABS: Glucose, Whole Blood 90 mg/dL (60-115)
[2024-04-23] MEDS: Tamsulosin HCL 0.4 MG CAPSULE PO (09:24)
[2024-04-23] MEDS: Aspirin Enteric Coated 81 MG TABLET.DR PO (09:24)
[2024-04-23] MEDS: Clopidogrel Bisulfate 75 MG TABLET PO (09:25)
[2024-04-23 11:19] LABS: Glucose, Whole Blood 148 mg/dL (60-115)
[2024-04-23 11:41] VITALS: BP 98/56; PULSE 75; RESP 17; TEMP 36.1; O2SAT 98
--- NOTE | 2024-04-23 12:40 | P.PNNP_ITS ---
Subjective Subjective Date of Service: 04/23/24 Interval history: Seen and examined this morning Septic shock/bacteremia Downgraded from the ICU 04/18 feeling better overall, reporting left middle finger wound dialysis cath removed 04/22/24 Physical Exam 2 Vital Signs: Vital Signs: Last Vital Signs Temp 96.9 F 04/23/24 11:41 Pulse 75 04/23/24 11:41 Resp 17 04/23/24 11:41 BP 98/56 L 04/23/24 11:41 Pulse Ox 98 04/23/24 11:41 O2 Del Method Room Air 04/23/24 11:41 O2 Flow Rate 2 04/21/24 03:46 BMI result Body Mass Index 23.8 cvs: s1s2 Rs; cta Abd;soft Objective Data Labs 04/21/24 08:00 04/23/24 06:43 Labs: Laboratory Results - last 24 hr 04/22/24 04/22/24 04/22/24 15:54 16:17 21:35 Hold Purple Top Creatinine Estim Creat Clear Calc Estimated GFR POC Glucose 114 144 H Random Vancomycin 10.1 L 04/23/24 04/23/24 04/23/24 06:43 07:37 11:07 Hold Purple Top SEE NOTE Creatinine 5.49 H* Estim Creat Clear Calc 13.7 Estimated GFR 10 POC Glucose 90 148 H Random Vancomycin Microbiology Microbiology Results: Microbiology 04/22/24 14:20 Catheter Tip - Other Catheter Tip Culture - Preliminary No growth after 1 day 04/19/24 14:55 Blood - Central Line Blood Culture - Preliminary No growth after 48 hours. 04/19/24 14:54 Blood - Central Line Blood Culture - Preliminary No growth after 48 hours. 04/17/24 18:27 Blood - Venous Blood Culture - Final Staphylococcus aureus 04/17/24 18:27 Blood - Venous Blood Culture - Final Staphylococcus aureus 04/16/24 22:43 Blood - Venous Blood Culture - Final Staphylococcus aureus Streptococcus viridans group 04/16/24 22:45 Blood - Venous Blood Culture - Final Staphylococcus aureus Procedures Date of Service Date of Service: 04/23/24 Assessment & Plan Assessment and plan (1) CKD (chronic kidney disease): Status: Acute (2) CRYSTAL (acute kidney injury): Status: Acute Plan 68yo M with CAD s/p STEMI 2022 with PCI, CHF, CVA x2, DM2, CKD3 recent admit for CRYSTAL/hyperK/metabolic acidosis 1. CRYSTAL: renal func was not bouncing back so HD started and at this point no signs of rtenal recovery outpt HD is at [facility] - 1st shift ( [phone]) 2. CKD 4 in opast but now HD dependent BSL Scr 4.5 on 02/2024 at last OV; h/o DN/HTN adv renal dis 3. Nephrogenic Anemia 4. Satph bacteremoia: c/w line sepsis REC: HD per TTS schedule; Pcath to be removed and new one placed after 48 hrs of bld cult neg ABX as per ID --duration epo as ordered Time Spent With Patient Time: Total time managing care of this patient today ____ minutes. Progress Note: Quality Stroke Does the patient have a stroke diagnosis?: No
--- NOTE | 2024-04-23 14:16 | MHC.CM.PN ---
EMR REVIEWED, PT S/P HD CATH REMOVAL, PER HOSPITALIST PLAN FOR NEW HD CATH TO BE PLACED TOMORROW 04/24, PT WILL HAVE DIALYSIS AND WILL LIKELY BE ABLE TO DC AFTER DIALYSIS, CM WILL CONT TO FOLLOW DC NEEDS.
[2024-04-23 15:54] VITALS: BP 132/81; PULSE 83; RESP 16; TEMP 36.6; O2SAT 99
[2024-04-23 16:06] LABS: Glucose, Whole Blood 141 mg/dL (60-115)
--- NOTE | 2024-04-23 16:10 | PC.NURSE ---
Ok to keep IV out per YOSEPH Quintero
[2024-04-23 19:03] VITALS: BP 112/67; PULSE 67; RESP 16; TEMP 36.6; O2SAT 98
[2024-04-23] MEDS: Atorvastatin Calcium 80 MG TABLET PO (20:30)
[2024-04-23 20:32] LABS: Glucose, Whole Blood 149 mg/dL (60-115)
[2024-04-24 03:31] VITALS: BP 106/66; PULSE 78; RESP 16; TEMP 36.3; O2SAT 100
[2024-04-24] MEDS: Heparin Sodium,Porcine 5,000 UNIT/ML VIAL 5000 UNIT SUBCUT (05:52)
[2024-04-24 06:54] LABS: Creatinine Clr Calc Pharmacy 11.9; Estimated Glomerular Filt Rate 9
[2024-04-24 07:18] VITALS: BP 113/66; PULSE 75; RESP 18; TEMP 36.3; O2SAT 100
[2024-04-24 07:43] LABS: Glucose, Whole Blood 94 mg/dL (60-115)
[2024-04-24] MEDS: Aspirin Enteric Coated 81 MG TABLET.DR PO (08:42)
[2024-04-24] MEDS: Clopidogrel Bisulfate 75 MG TABLET PO (08:42)
[2024-04-24] MEDS: Tamsulosin HCL 0.4 MG CAPSULE PO (08:42)
--- NOTE | 2024-04-24 11:51 | PM.PROC ---
Brief Operative Note Date of procedure: 04/24/24 Pre-op diagnosis: Needs intermediate access for HD Post-op diagnosis: same Procedure: Right IJ 27 cm permcath placed using US and FL. Tip in right atrium. Ok for use. No immediate complications
[2024-04-24 12:14] LABS: Glucose, Whole Blood 148 mg/dL (60-115)
--- NOTE | 2024-04-24 12:47 | HO.WOUND ---
Wound Consult: Initial 68yr old? [place] [facility] [place] - See progress notes and H&P for detailed history.? Wound consult placed for Left middle finger wound POA.? Patient agreeable to assessment and photo documentation.? Pt reports a few months ago the patient was using a pedro and clipped the tip of his finger and the wound has been through various stages of healing. He denies higher level of care. suspect blister site partial thickness tissue loss - clean wound bed Tip that probes to bone Etiology: ??Traimatic injury with pedro approx 6 months ago per pt Measurements: 0.2cm x 0.2cm x 0.6cm Wound Bed: tip wound probes to bone Drainage / Odor: Serosang noted - no purulence noted - no odor noted Edges: ? irregular Lisa wound: swelling noted - denies pain - no erythema noted at this time - ? No Induration, Fluctuance or Warmth noted Pain: denies Goals of Treatment: ? Durafiber packing - Follow up with out pt wound clinic TT with Nurse Director Of [employer] - CHRISTINAA set up for carry out wound care topical recommendations. Recommendations: 1. Provide adequate and supplemental nutrition.? 2. When applicable maintain blood glucose levels per Providers order. 3. Left Middle Finger - Cleanse with routine soap and water, pat dry. Lightly pack wound bed with durafiber AG be sure to leave a wick for easy removal. Cover with dry gauze dressing. Change every 2-3 days and PRN. Recommend follow up out patient Wound Clinic at [address] [place] [id number] and to call for an appointment at time of discharge. [phone].? Re-consult wound care Nurse for wound deterioration or wound changes.
--- NOTE | 2024-04-24 12:52 | PM.DS ---
DS: Providers Provider Date of Service: 04/24/24 Date of admission: 04/17/24 06:53 Date of discharge: 04/24/24 Primary care physician: Hilton Pepe MD Consults: 04/17/24 06:56 Consult to Nephrology Stat Consulting Provider: [facility] Reason for consultation: ESRD needs HD Has provider been notified: No 04/17/24 15:58 Consult to Infectious Diseases Routine Consulting Provider: [facility] Reason for consultation: bacteremia Has provider been notified: No 04/18/24 11:34 Consult to Wound Care Routine Reason for consultation: Left middle finer tip open, draining pus, swollen, red/ warm. Has provider been notified: Yes 04/18/24 14:57 Consult to Orthopedics Routine Consulting Provider: [facility] Reason for consultation: left middle finger infection Has provider been notified: No 04/20/24 09:09 Consult to Orthopedics Routine Consulting Provider: [facility] Reason for consultation: finger osteo Attending physician on discharge: Brendon Duarte Discharging clinician: Amanda Hirsch DS: Diagnosis Discharge Diagnosis (1) CKD (chronic kidney disease): Status: Acute (2) CRYSTAL (acute kidney injury): Status: Acute (3) Bacteremia: Status: Acute (4) Osteomyelitis: Status: Acute DS: Summary Hospital Course Hospital Course: From admission H&P 68-year-old male with past medical history of ESRD on maintenance hemodialysis T// through a PermCath, CAD s/p PCI in 2012, CHF, CVA x2, non-insulin dependent type 2 diabetes presents to the ED with complaints fever for the past 3 days and also fall. He states he has been having intermittent fever not associated with chills for the past 3 days. No exacerbating or relieving factors. Fever is associated with fever episodes of diarrhea for the same duration. He denies any cough, denies any cold, denies any abdominal pain, denies any urinary symptoms, denies any bony pain. Yesterday in the evening when he was trying to walk he had a soft fall after which he presented to the ED. in the ED he was found to be hypotensive needing Levophed support so MICU was consulted. He also states that he has not been eating or drinking anything for the past 3 days. He occasionally urinates. Left hand wound with likely osteomyelitis orthopedic surgery>no intervention needed at this time Recommend wound care and outpatient follow-up in Wound Care Center. We will need VNA upon discharge for wound care management: Cleanse with routine soap and water, pat dry. Lightly pack wound bed with durafiber AG be sure to leave a wick for easy removal. Cover with dry gauze dressing. Change every 2-3 days and PRN. Recommend outpatient follow-up with Wound Care Clinic upon discharge Septic shock due to MSSA bacteremia sepsis resolved due to infected right subclavian PermCath and left finger osteo TTE ordered to rule out endocarditis and was negative Seen in consultation by ID -recommend total of 6 weeks 2 gm IV kefzol for osteo and bacteremia to be given post dialysis from 1st negative blood cultures (04/19) - end date 05/31 repeat cx from line negative after 48hrs line removed 04/22/24, new permcath placed 04/24/24. Had HD 04/24 and will resume outpatient dialysis schedule Time Attestation Discharge Coordination Time (in mins): 40 Quality: Safe Use of Opioids Does Pt have an Active Cancer Diagnosis on the Problem List?: No Quality: Stroke Does the patient have a stroke diagnosis?: No Physical Exam Vital Signs: Vital Signs: Last Vital Signs Temp 97.4 F 04/24/24 07:18 Pulse 75 04/24/24 07:18 Resp 18 04/24/24 07:18 BP 113/66 04/24/24 07:18 Pulse Ox 100 04/24/24 07:18 O2 Del Method Room Air 04/24/24 07:18 O2 Flow Rate 2 04/21/24 03:46 BMI result Body Mass Index 23.8 Const: General: cooperative, no acute distress, alert and awake Nutritional Appearance: average body habitus Orientation/consciousness: patient oriented x3 Resp: Effort & Inspection: normal respiratory effort, able to speak in complete sentences, no respiratory distress and no use of accessory muscles Cardio: Rate: regular rate GI: Inspection: No distended Palpation (GI): Soft to palpation and nontender Skin: Other: left middle finger with ulcer Neuro: General: patient oriented x3, moves all extremities and CN's II-XI intact bilaterally Extrem: General: Yes no pedal edema DS: Data Data Completed and Pending Completed studies during hospitalization [Text1]: Procedures Insertion of Infusion Device into Right Atrium, Percutaneous Approach (02/28/24) Insertion of Tunneled Vascular Access Device into Chest Subcutaneous Tissue and Fascia, Percutaneous Approach (02/28/24) Performance of Urinary Filtration, Intermittent, Less than 6 Hours Per Day (02/28/24) Transfusion of Nonautologous Red Blood Cells into Peripheral Vein, Percutaneous Approach (02/28/24) Ultrasonography of Superior Vena Cava, Guidance (02/28/24) Labs on day of discharge: Laboratory Results - last 24 hr 04/23/24 04/23/24 04/24/24 15:57 20:24 05:47 Hold Purple Top Creatinine 6.33 H* Estim Creat Clear Calc 11.9 Estimated GFR 9 POC Glucose 141 H 149 H 04/24/24 04/24/24 04/24/24 05:55 07:18 12:11 Hold Purple Top SEE NOTE Creatinine Estim Creat Clear Calc Estimated GFR POC Glucose 94 148 H Preliminary micro results at discharge 04/22/24 14:20 Catheter Tip Culture - Preliminary Catheter Tip - Other No growth after 2 days 04/19/24 14:55 Blood Culture - Preliminary Blood - Central Line No growth after 48 hours. 04/19/24 14:54 Blood Culture - Preliminary Blood - Central Line No growth after 48 hours. Discharge Plan Discharge Anticipated Discharge Date/Time: 04/24/24 13:08 Patient Disposition: Home Health Service Discharge Diagnosis: Osteomyelitis left middle finger MSSA bacteremia due to line infection Referrals: [facility] [Outside] - 3-5 Days ([facility] will call you to schedule home nursing and physical therapy appointments) Hilton Pepe MD [Primary Care Provider] - 1 Week Cindy Mobley MD [Physician] - 1 Month Lilian Berry MD [Physician] - 1 Week Discharge Medications: Continued famotidine 20 mg tablet 20 mg PO BEDTIME PRN (Reason: Heartburn) atorvastatin 80 mg tablet 80 mg PO BEDTIME metoprolol succinate 200 mg tablet extended release 24 hr 200 mg PO DAILY clopidogrel 75 mg tablet 75 mg PO DAILY tamsulosin 0.4 mg capsule 0.4 mg PO DAILY aspirin 81 mg Tablet,Delayed Release (Dr/Ec) 81 mg PO DAILY Held finasteride 5 mg tablet 5 mg PO DAILY 90 Days Qty: 90 0RF Hold Instructions: has been on hold for soft blood pressure - follow up with PCP Discharge Orders: Discharge Order (Routine); Ordered 04/24/24 Ordered By: Amanda Hirsch Activity on Discharge: As tolerated Stand Alone Forms: Patient Portal Discharge page Print Language: Nepali Activity Restrictions/Additional Instructions: Topical wound care recommendations: 1. Provide adequate and supplemental nutrition.? 2. When applicable maintain blood glucose levels per Providers order. 3. Left Middle Finger - Cleanse with routine soap and water, pat dry. Lightly pack wound bed with durafiber AG be sure to leave a wick for easy removal. Cover with dry gauze dressing. Change every 2-3 days and PRN. Recommend follow up out patient Wound Clinic at [address] [place] [address] and to call for an appointment at time of discharge. [phone].? Care Plan Goals: See below Health Concerns: Left middle finger osteomyelitis MSSA bacteremia Septic shock due to above. resolved Anemia due to ESRD-follow CBC Plan of Treatment: Dressing changes as above for left middle finger with assistance from VNA For bacteremia/osteomyelitis - 2 g IV cefazolin after dialysis for total of 6 weeks from first negative blood cultures-end date 05/31 - recommend to monitor CBC and BMP weekly while receiving antibiotics Recommend follow-up in Wound Care Clinic for close monitoring of the left middle finger wound Recommend follow-up with Infectious diseases Outpatient hemodialysis as scheduled Finasteride has been on hold due to soft blood pressure. Recommended outpatient follow-up with PCP to resume Assessment: See discharge summary Discharge Date/Time: 04/24/24 18:10
--- NOTE | 2024-04-24 13:15 | W.MHC.F2F ---
Service Date Service Date: 04/24/24 Encounter Date of encounter: 04/24/24 Reasons for Services Signs and symptoms assessed: Needs custodial for dressing changes as per discharge summary and weekly CBC/BMP while receiving IV antibiotics at dialysis Reason for custodial: wound care (Left Middle Finger - Cleanse with routine soap and water, pat dry. Lightly pack wound bed with durafiber AG be sure to leave a wick for easy removal. Cover with dry gauze dressing. Change every 2-3 days and PRN. ) Reason for physical therapy: home safety and mobility and therapeutic exercises MD Overseeing Care: Hilton Pepe Homebound: Leaving the home is medically contraindicated at this time without the asist of a device and/or another person due th the listed conditions above and below. Reason homebound: weakness related to hospital stay Certification: Based on the above findings, I certify that this patient is confined to the home and needs intermittent custodial care, physical therapy and/or speech therapy, or continues to need occupational therapy. The patient is under my care, and I have initiated the establishment of the plan of care. The patient will be followed by a physician who will periodically review the plan of care. Time Spent With Patient Time: Total time managing care of this patient today ____ minutes.
--- NOTE | 2024-04-24 15:27 | MHC.CM.PN ---
Per hospitalist, patient medically cleared for dc after HD. Will begin PT/SN servcies w/ [facility]. Patient's HD center aware of dc. Family to provide transport. RN aware. IMM delivered.
[2024-04-24] MEDS: ceFAZolin Sodium/Dextrose,Iso 2 GM/50 ML PIGGYBACK IV (16:21)
--- NOTE | 2024-04-24 22:35 | P.PNNP_ITS ---
Subjective Subjective Date of Service: 04/24/24 Interval history: Seen and examined this morning Septic shock/bacteremia Downgraded from the ICU 04/18 feeling better overall, reporting left middle finger wound dialysis cath removed 04/22/24 new hd cath placed, and pt seen in dialysis today Physical Exam 2 Vital Signs: Vital Signs: Last Vital Signs Temp 97.4 F 04/24/24 07:18 Pulse 75 04/24/24 07:18 Resp 18 04/24/24 07:18 BP 113/66 04/24/24 07:18 Pulse Ox 100 04/24/24 07:18 O2 Del Method Room Air 04/24/24 07:18 O2 Flow Rate 2 04/21/24 03:46 BMI result Body Mass Index 23.8 cvs: s1s2 RS; cta ABd; soft Objective Data Labs 04/21/24 08:00 04/24/24 05:47 Labs: Laboratory Results - last 24 hr 04/24/24 04/24/24 04/24/24 05:47 05:55 07:18 Hold Purple Top SEE NOTE Creatinine 6.33 H* Estim Creat Clear Calc 11.9 Estimated GFR 9 POC Glucose 94 04/24/24 12:11 Hold Purple Top Creatinine Estim Creat Clear Calc Estimated GFR POC Glucose 148 H Microbiology Microbiology Results: Microbiology 04/19/24 14:55 Blood - Central Line Blood Culture - Final No growth after 5 days. 04/19/24 14:54 Blood - Central Line Blood Culture - Final No growth after 5 days. 04/22/24 14:20 Catheter Tip - Other Catheter Tip Culture - Preliminary No growth after 2 days 04/17/24 18:27 Blood - Venous Blood Culture - Final Staphylococcus aureus 04/17/24 18:27 Blood - Venous Blood Culture - Final Staphylococcus aureus 04/16/24 22:43 Blood - Venous Blood Culture - Final Staphylococcus aureus Streptococcus viridans group 04/16/24 22:45 Blood - Venous Blood Culture - Final Staphylococcus aureus Procedures Date of Service Date of Service: 04/24/24 Assessment & Plan Assessment and plan (1) CRYSTAL (acute kidney injury): Status: Acute Plan 68yo M with CAD s/p STEMI 2022 with PCI, CHF, CVA x2, DM2, CKD3 recent admit for CRYSTAL/hyperK/metabolic acidosis 1. CRYSTAL: renal func was not bouncing back so HD started and at this point no signs of rtenal recovery outpt HD is at [facility] - 1st shift ( [phone]) 2. CKD 4 in opast but now HD dependent BSL Scr 4.5 on 02/2024 at last OV; h/o DN/HTN adv renal dis 3. Nephrogenic Anemia 4. Satph bacteremoia: c/w line sepsis REC: HD per TTS schedule; Pcath removed and new one placed after 48 hrs of bld cult neg ABX as per ID -- kefzol 2gm after HD - last date 05/31/24 epo as ordered dicharge today and cont abx as op in hd unit Time Spent With Patient Time: Total time managing care of this patient today ____ minutes. Progress Note: Quality Stroke Does the patient have a stroke diagnosis?: No
--- NOTE | 2024-04-25 16:03 | P.CDIM_ITS ---
PROVIDER RESPONSE TEXT: To clarify, the appropriate diagnosis supported by the clinical indicators: Acute QUERY TEXT: PHYSICIAN'S DOCUMENTATION REQUEST Date of Query: 04/25/2024 11:20 AM EDT Patient Name: Woody Alfredo Admit Date: 04/17/2024 Dear Amanda HAMEED, RETROSPECTIVE QUERY A review of the medical record indicates additional documentation may be needed. Please review below and update the documentation accordingly. Clinical Indicators: Discharge summary and progress notes: Left hand wound with likely osteomyelitis Recommend wound care and outpatient follow-up [facility]. Cleanse with routine soap and water, pat dry. Lightly pack wound bed with durafiber AG. Cover with dry gauze dressing. Clarify which of the following accurately represents the acuity of the Osteomyelitis within the body of the written Plan: Acute Chronic Chronic stable condition Other (explain) Clinically unable to determine (explain) Thank you, Libra Lee, CCS, CDIS Use of terms such as suspected, likely, concern for, or probable (associated with a specific diagnosi s that is being evaluated, monitored, or treated as if it exists) are acceptable and can be coded in the inpatient se tting, when documented at the time of discharge. Please use your independent medical judgment in providing your response. THIS QUERY IS PART OF THE PERMANENT MEDICAL RECORD
== END 2024-04-24 18:10 | disposition home health service (06) | DRG 314 ==
LOC: HO.ED 04-17 01:23 → HO.EDOVER 04-17 07:00 → HO.ICU 04-17 07:22 → HO.IMC 04-17 16:27 → HO.S3 04-23 14:21
PROVIDERS: Internal Medicine Critical Care Medicine; Nurse Practitioner Acute Care; Radiology Vascular & Interventional Radiology; Admitting Provider Physician Assistant Medical; Emergency Provider Emergency Medicine; PCP Internal Medicine; Visit Provider Physician Assistant Medical
PROC: 0JH63XZ Insertion of Tunneled Vascular Access Device into Chest Subcutaneous Tissue and Fascia, Percutaneous Approach (ICD-10-PCS; principal; 2024-04-24 11:00)
DX: T80.211A Bloodstream infection due to central venous catheter, initial encounter (principal); A41.01 Sepsis due to Methicillin susceptible Staphylococcus aureus; N18.6 End stage renal disease; R65.21 Severe sepsis with septic shock; M86.142 Other acute osteomyelitis, left hand; D63.1 Anemia in chronic kidney disease; E11.22 Type 2 diabetes mellitus with diabetic chronic kidney disease; D69.6 Thrombocytopenia, unspecified; E11.69 Type 2 diabetes mellitus with other specified complication; I25.10 Atherosclerotic heart disease of native coronary artery without angina pectoris; Z95.5 Presence of coronary angioplasty implant and graft; Z99.2 Dependence on renal dialysis; Z20.822 Contact with and (suspected) exposure to COVID-19; Z79.02 Long term (current) use of antithrombotics/antiplatelets; Z79.82 Long term (current) use of aspirin; Z79.899 Other long term (current) drug therapy
CPT/HCPCS: 0241U; 36415; 36558; 36589; 70450; 71045; 71250; 73120; 76700; 80048; 80053; 80076; 80202; 80307; 81001; 82565; 82947; 83605; 83735; 84100; 84443; 84484; 85025; 85027; 85610; 85652; 86140; 87040; 87071; 87077; 87147; 87186; 87205; 90999; 93005; 93306; 97162; 99285; C1750; C1769; J0690; J1644; J1956; J2543; J3370; P9047; Q9957

== ENCOUNTER → 2024-04-16 22:20 | Outpatient (BNV) | payer MEDICARE, SELFPAY | PROVIDERS: Admitting Provider Physician Assistant Medical; Emergency Provider Emergency Medicine; PCP Internal Medicine; Visit Provider Internal Medicine Cardiovascular Disease | DX: R94.31 Abnormal electrocardiogram [ECG] [EKG] (principal) | CPT/HCPCS: 93010 ==

== ENCOUNTER 2024-04-17 06:53 | Outpatient (BNV) | payer MEDICARE, SELFPAY | END 2024-04-21 14:20 | PROVIDERS: Admitting Provider Physician Assistant Medical; Emergency Provider Emergency Medicine; PCP Internal Medicine; Visit Provider Student in an Organized Health Care Education/Training Program | DX: Z49.01 Encounter for fitting and adjustment of extracorporeal dialysis catheter (principal) | CPT/HCPCS: 36589 ==

== ENCOUNTER 2024-04-17 06:53 | Outpatient (BNV) | payer MEDICARE, SELFPAY | END 2024-04-18 07:00 | PROVIDERS: Admitting Provider Physician Assistant Medical; Emergency Provider Emergency Medicine; PCP Internal Medicine; Visit Provider Internal Medicine Cardiovascular Disease | DX: I34.1 Nonrheumatic mitral (valve) prolapse (principal); I34.81 Nonrheumatic mitral (valve) annulus calcification | CPT/HCPCS: 93306 ==

== ENCOUNTER 2024-04-17 06:53 | Outpatient (BNV) | payer MEDICARE, SELFPAY | END 2024-04-24 11:51 | PROVIDERS: Admitting Provider Physician Assistant Medical; Emergency Provider Emergency Medicine; PCP Internal Medicine; Visit Provider Physician Assistant Surgical | DX: N18.6 End stage renal disease (principal) | CPT/HCPCS: 36558; 76937; 77001 ==

== ENCOUNTER → 2024-04-17 06:53 | Outpatient (BNV) | payer MEDICARE, SELFPAY | PROVIDERS: Admitting Provider Physician Assistant Medical; Emergency Provider Emergency Medicine; PCP Internal Medicine; Visit Provider Physician Assistant Medical | DX: S61.303A Unspecified open wound of left middle finger with damage to nail, initial encounter (principal); R78.81 Bacteremia | CPT/HCPCS: 99232; 99239; 99499; G0180 ==

== ENCOUNTER → 2024-04-17 06:53 | Outpatient (BNV) | payer MEDICARE, SELFPAY | PROVIDERS: Admitting Provider Physician Assistant Medical; Emergency Provider Emergency Medicine; PCP Internal Medicine; Visit Provider Internal Medicine | DX: R78.81 Bacteremia (principal); I95.9 Hypotension, unspecified | CPT/HCPCS: 99222 ==

== ENCOUNTER → 2024-04-17 06:53 | Outpatient (BNV) | payer MEDICARE, SELFPAY | PROVIDERS: Admitting Provider Physician Assistant Medical; Emergency Provider Emergency Medicine; PCP Internal Medicine; Visit Provider Internal Medicine Critical Care Medicine | DX: N17.9 Acute kidney failure, unspecified (principal); N18.6 End stage renal disease; Z99.2 Dependence on renal dialysis; I95.9 Hypotension, unspecified; R50.9 Fever, unspecified | CPT/HCPCS: 99223 ==

== ENCOUNTER 2024-05-07 13:14 | Outpatient (AMB) | payer MEDICARE, SELFPAY ==
--- NOTE | 2024-05-07 13:43 | A.OFFVIS_ITS ---
Vital Signs 05/07/24 13:53 Height 6 ft Weight 191 lb BMI 25.9 Pulse 88 Pulse Source Pulse Oximeter Temp 98.5 F Temp Source Oral Pulse Oximetry (%) 99 Oxygen Delivery Method Room Air Intake Visit Reasons: [facility] sepsis/vanco iv Allergies No Known Allergies Allergy (Verified 05/07/24 13:53) HPI HPI [facility] re[facility] sepsis/vanco iv: Details: He has left third finger wrapped,tip open OM He has been getting Vancomycin with dialysis. He has no other concerns. [facility] Medical History CKD (chronic kidney disease) Incomplete bladder emptying Obstructive uropathy Non-insulin dependent type 2 diabetes mellitus CKD (chronic kidney disease) stage 3, GFR 30-59 ml/min Heart failure Hyperlipidemia STEMI (ST elevation myocardial infarction) CAD (coronary artery disease) CVA (cerebral vascular accident) Social History Household Members: Family Household Members Other:: and daughter Housing: House Do you presently have visiting nurse or other home services: No Patient Tobacco Use Status: Never used Tobacco Second Hand Smoke Exposure: No Advance Directives Date on File: 02/29/24 service: No Review of Systems Const All systems reviewed & are unremarkable except as noted in HPI and below Physical Exam Vital Signs: Last Vital Signs Temp 98.5 F 05/07/24 13:53 Pulse 88 05/07/24 13:53 Pulse Ox 99 05/07/24 13:53 Oxygen Delivery Method Room Air 05/07/24 13:53 BMI result Body Mass Index 25.9 Const General: cooperative Orientation/consciousness: patient oriented x3 HEENT Head: Yes normal to inspection Mouth: Normal oral and palatal mucosa present Eyes General: appearance normal, both eyes and all related structures Pupils: Equal, round and reactive pupils present Resp Effort & Inspection: normal respiratory effort Cardio Rate: regular rate Rhythm: regular rhythm GI Palpation (GI): Soft to palpation and nontender General: Yes no CVA tenderness Back/Spine/Pelvis Back: no CVA tenderness Skin General skin exam: no rashes or lesions noted Neuro General: patient oriented x3 Cranial nerves: Yes CN's II-XII intact bilaterally and Yes Equal, round and reactive pupils present Extrem General: Yes normal to inspection Psych Appearance: grossly normal Assessment & Plan Assessment & Plan (1) Osteomyelitis: Comment: Area OM finger Bacteremia Code(s): M86.9 - Osteomyelitis, unspecified Category: Medical Plan Vancomycin with dialysis Done 05/30, Orders: Orders IR cvc remove any age Today M86.9 - Osteomyelitis, unspecified Coding Level of Care Code Est Pt Level 3 (11781) Diagnoses Osteomyelitis M86.9
[2024-05-07 13:53] VITALS: PULSE 88; TEMP 36.9; O2SAT 99; BMI 25.9
== END 2024-05-07 14:19 | disposition home or self-care (01) ==
LOC: HO.HID 13:14
PROVIDERS: PCP Internal Medicine; Visit Provider Internal Medicine
DX: M86.9 Osteomyelitis, unspecified (principal)
CPT/HCPCS: 99213

== ENCOUNTER → 2024-05-07 13:14 | Outpatient (BNVA) | payer MEDICARE, SELFPAY | PROVIDERS: PCP Internal Medicine; Visit Provider Internal Medicine | DX: M86.9 Osteomyelitis, unspecified (principal) | CPT/HCPCS: 99212 ==

== ENCOUNTER 2024-06-04 13:22 | Outpatient (AMB) | payer MEDICARE, SELFPAY ==
--- NOTE | 2024-06-04 14:05 | A.OFFVIS_ITS ---
Vital Signs 3 06/04/24 14:08 Height 6 ft Weight 196 lb BMI 26.6 Pulse 77 Pulse Oximetry (%) 100 Intake Visit Reasons: f/u 1 mth. Allergies No Known Allergies Allergy (Verified 06/04/24 14:10) HPI HPI f/u 1 mth.: Details: He says finger feels and looks about the same with ulcer on tip. [facility] Medical History CKD (chronic kidney disease) Incomplete bladder emptying Obstructive uropathy Non-insulin dependent type 2 diabetes mellitus CKD (chronic kidney disease) stage 3, GFR 30-59 ml/min Heart failure Hyperlipidemia STEMI (ST elevation myocardial infarction) CAD (coronary artery disease) CVA (cerebral vascular accident) Social History Household Members: Family Household Members Other:: and daughter Housing: House Do you presently have visiting nurse or other home services: No Patient Tobacco Use Status: Never used Tobacco Second Hand Smoke Exposure: No Advance Directives Date on File: 02/29/24 service: No Review of Systems Const All systems reviewed & are unremarkable except as noted in HPI and below Physical Exam Vital Signs: Last Vital Signs Pulse 77 06/04/24 14:08 Pulse Ox 100 06/04/24 14:08 BMI result Body Mass Index 26.6 Const Other: General: cooperative Orientation/consciousness: patient oriented x3 HEENT Head: Yes normal to inspection Mouth: Normal oral and palatal mucosa present Eyes General: appearance normal, both eyes and all related structures Pupils: Equal, round and reactive pupils present Resp Effort & Inspection: normal respiratory effort Cardio Rate: regular rate Rhythm: regular rhythm GI Palpation (GI): Soft to palpation and nontender General: Yes no CVA tenderness Back/Spine/Pelvis Back: no CVA tenderness Skin General skin exam: no rashes or lesions noted Neuro General: patient oriented x3 Cranial nerves: Yes CN's II-XII intact bilaterally and Yes Equal, round and reactive pupils present Extrem General: Yes normal to inspection Psych Appearance: grossly normal Assessment & Plan Assessment & Plan (1) Osteomyelitis: Comment: Area OM finger Bacteremia Code(s): M86.9 - Osteomyelitis, unspecified Category: Medical Plan: No further antibiotics useful at this time. Amputation of at least whole bone tip if current wound and swelling persists another month or so. Coding Level of Care Code Est Pt Level 3 (87874) Diagnoses Osteomyelitis M86.9
[2024-06-04 14:08] VITALS: PULSE 77; O2SAT 100; BMI 26.6
== END 2024-06-04 15:17 | disposition home or self-care (01) ==
LOC: HO.HID 13:22
PROVIDERS: PCP Internal Medicine; Visit Provider Internal Medicine
DX: M86.9 Osteomyelitis, unspecified (principal)
CPT/HCPCS: 99213

== ENCOUNTER → 2024-06-04 13:22 | Outpatient (BNVA) | payer MEDICARE, SELFPAY | PROVIDERS: PCP Internal Medicine; Visit Provider Internal Medicine | DX: M86.9 Osteomyelitis, unspecified (principal) | CPT/HCPCS: 99212 ==

== ENCOUNTER 2024-06-09 08:00 | Outpatient (RCR) | payer MEDICARE, SELFPAY | END 2024-07-31 15:30 | disposition home or self-care (01) | LOC: HO.WCC 08:00 | PROVIDERS: PCP Internal Medicine; Visit Provider Surgery | DX: S61.203D Unspecified open wound of left middle finger without damage to nail, subsequent encounter (principal); M86.142 Other acute osteomyelitis, left hand | CPT/HCPCS: 99212; 99213 ==

== ENCOUNTER 2024-07-16 14:04 | Outpatient (AMB) | payer MEDICARE, SELFPAY ==
--- NOTE | 2024-07-16 14:20 | MHC.OFFVIS ---
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 Previously going to [facility] but would like to switch to [place]. It seems that he underwent cardiac catheterization in 2022 for anterior STEMI. At that time, diagnosed to have three-vessel disease. Occluded proximal LAD, thought to be culprit. He also had severe stenosis in the proximal circumflex and presumed occluded RCA with [id number] collaterals. Underwent PCI to LAD. Unclear what further ischemic evaluation has been done in the last year or so. We will need to review those records. Otherwise, he has ESRD and recently started hemodialysis. For the most part, he states he is doing okay. Does not have any active cardiac symptoms. Today's blood pressure is quite high but he states it is normally very much in the normal range. Apparently, he was taking metoprolol 200 mg daily but the doses have been cut back as the blood pressure was running low. He believes today's readings an anomaly as it is never this high. He denies any symptoms anyway. [facility] Medical History CKD (chronic kidney disease) Incomplete bladder emptying Obstructive uropathy Non-insulin dependent type 2 diabetes mellitus CKD (chronic kidney disease) stage 3, GFR 30-59 ml/min Heart failure Hyperlipidemia STEMI (ST elevation myocardial infarction) CAD (coronary artery disease) CVA (cerebral vascular accident) Family History (Updated 07/16/24 @ 14:34 by Afua Charles) Mother No problems noted. Father No problems noted. Social History Household Members: Family Household Members Other:: and daughter Housing: House Do you presently have visiting nurse or other home services: No Patient Tobacco Use Status: Never used Tobacco Second Hand Smoke Exposure: No Advance Directives Date on File: 02/29/24 service: No Review of Systems Const Denies weakness ENT Denies dizziness Card Reports chest pain, Denies chest pain with activity, Denies syncope, Denies rapid heart rate, Denies pedal edema, Denies edema, Denies leg edema, Denies lightheadedness, Denies palpitations, Denies dyspnea, Denies dyspnea on exertion and Denies orthopnea Resp Denies cough, Denies dyspnea and Denies dyspnea on exertion GI Denies hematochezia and Denies change in stool character Musc Denies abnormal gait, Denies muscle cramps, Denies muscle weakness, Denies numbness, Denies radiating pain into limb and Denies tingling Neuro Denies abnormal gait, Denies dizziness, Denies syncope, Denies numbness, Denies tingling and Denies weakness Endo Denies palpitations Physical Exam Vital Signs: Last Vital Signs Pulse 85 07/16/24 14:21 BP 180/100 H 07/16/24 14:21 BMI result Body Mass Index 26.6 Const General: comfortable and no acute distress Orientation/consciousness: patient oriented x3 HEENT Other: Unremarkable Head: Yes normal to inspection Neck Neck: Yes normal visual inspection Chest Chest palpation & inspection: normal inspection of the chest Resp Auscultation: clear to auscultation bilaterally Cardio Palpation: normal PMI Heart sounds: S1 normal heart sound present, S2 normal heart sound present, no gallops, no murmurs and no rubs GI Palpation (GI): Soft to palpation Back/Spine/Pelvis Other: unremarkable Skin General skin exam: no rashes or lesions noted Neuro General: patient oriented x3 Extrem General: Yes normal to inspection Psych Mental Status: mental status grossly normal Office Procedures EKG Details: EKG with sinus, 85/min, right axis deviation, can not exclude anterior infarct; downsloping STs in the inferior and anterolateral leads. 40528-Rnhhmafoyaprvcnea, Complete Assessment & Plan Assessment & Plan (1) Atherosclerotic cardiovascular disease: Code(s): I25.10 - Atherosclerotic heart disease of [place] coronary artery without angina pectoris Category: Medical Plan: In the cardiac catheterization from 07/20223906-jxmte-gxxvrw disease. Occluded proximal LAD thought to be the culprit. Severe proximal circumflex stenosis. Presumed occluded RCA with [id number] collaterals. Status post PCI to LAD. He is still on dual antiplatelet therapy. We will need to reviewed the last office note from [facility]. Will need to review any recent stress testing. Clinically, no overt symptoms. (2) Ischemic cardiomyopathy: Code(s): I25.5 - Ischemic cardiomyopathy Category: Medical Plan: Echocardiogram with LVEF of 30-35%. Wall motion abnormalities from underlying coronary disease. Clinically, he does not have any overt heart failure symptoms or signs. We will review any prior studies. (3) ESRD (end stage renal disease) on dialysis: Code(s): N18.6 - End stage renal disease; Z99.2 - Dependence on renal dialysis Category: Medical Plan: On dialysis. Coding Level of Care Code New Pt Level 4 (52102) Diagnoses Atherosclerotic cardiovascular disease I25.10 Ischemic cardiomyopathy I25.5 ESRD (end stage renal disease) on dialysis N18.6; Z99.2 CPT Codes EKG - CPT: 66046-Itapfydhsptsqmnnt, Complete ([id number])
[2024-07-16 14:21] VITALS: BP 180/100; PULSE 85; BMI 26.6
== END 2024-07-16 14:44 | disposition home or self-care (01) ==
PROVIDERS: PCP Internal Medicine; Visit Provider Internal Medicine
DX: I25.10 Atherosclerotic heart disease of native coronary artery without angina pectoris (principal); I25.5 Ischemic cardiomyopathy; N18.6 End stage renal disease; Z99.2 Dependence on renal dialysis
CPT/HCPCS: 93010; 99214

== ENCOUNTER → 2024-07-16 14:04 | Outpatient (BNVA) | payer MEDICARE, SELFPAY | PROVIDERS: PCP Internal Medicine; Visit Provider Internal Medicine | DX: I25.10 Atherosclerotic heart disease of native coronary artery without angina pectoris (principal); I25.5 Ischemic cardiomyopathy; N18.6 End stage renal disease; Z99.2 Dependence on renal dialysis | CPT/HCPCS: 93005; 99212 ==

== ENCOUNTER 2024-08-22 07:30 | Outpatient (REF) | payer MEDICARE, SELFPAY ==
--- OUTSIDE RECORDS SUMMARY | 2024-08-22 11:20 | XMS_ITS ---
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 Role Phone Hilton Pepe Primary Care Provider Allergies No Known Allergies Results Component Value Reference Range Notes Glucose, finger stick Reviewed date:05/01/2024 01:12:31 PM Interpretation: Performing Lab: Notes/Report: Value 168 REASON FOR VISIT PH VISIT left middle finger infection, Dede trying to get Discharge Summary Medications Medication SIG (Take, Route, Frequency, Duration) Notes Start Date End Date Status Finasteride 5 MG 1 tablet Orally Once a day for 30 day(s) Active Magnesium Oxide 400 MG 1 tablet as neede d Orally Once a day for 90 days 08/17/2022 Not-Taking Benzonatate 100 MG 1 capsule as needed Orally Three times a day for 10 days 07/18/2022 Not-Taking Atorvastatin Calcium 80 MG TAKE 1 TABLET BY MOUTH EVERY DAY Orally Once a day Active metFORMIN HCl 500 MG TAKE 1 TABLET BY MO UTH TWICE DAILY WITH A MEAL Orally twice aday for 90 days Not-Taking amLODIPine Besylate 5 MG TAKE 1 TABLET B Y MOUTH EVERY DAY Not-Taking Torsemide 10 MG take 1 tablet by bony th every day as directed Orally Once a day for 90 days Not-Taking Famotidine 20 MG 1 tablet at bedtime as needed Orally Once a day for 30 day(s) 03/13/2024 Not-Taking Metoprolol Succinate ER 200 MG 1 tablet Orally Once a day Not-Taking Molnupiravir 200 MG 4 capsules Orally ev yazan 12 hrs for 5 day(s) 01/25/2024 Not-Taking Metoprolol Succinate ER 100 MG 1 tablet Orally Once a day for 30 days 05/01/2024 Active OneTouch FinePoint Lancets - use to test blood sugar invitro DX e11.9 three times a day for 30 days 12/11/2019 Active Tamsulosin HCl 0.4 MG TAKE 1 CAPSULE BY MOUTH EVERY DAY for 90 Active FreeStyle Lite Test - as directed In Vit ro 3 times a day for 90 days 11/30/2022 Active Clopidogrel Bisulfate 75 MG take 1 tablet by mouth every day Orally Once a day for 90 days Active OneTouch Ultra - use to test blood ochoa gar invitro DxE11.9 three times a day for 30 days 12/11/2019 Active Aspirin 81 81 MG 1 tablet Orally Once a day for 30 day(s) Active Vital Signs Blood pressure systolic 112 mm Hg 05/01/20 Blood pressure diastolic 60 mm Hg 024 Heart Rate 100 /min 05/01/2024 Height 72 in 05/01/2024 Weight 182 lbs 05/01/2024 BMI 24.68 kg/m2 05/01/2024 Encounters Encounter Location Date Provider Diagnosis Hilton Pepe MD [address] [place], [place] [id number] 05/01/2024 Hilton Pepe Type 2 diabetes mellitus without complications E11.9 ; Staphylococcal septicemia A41.2 ; Chronic renal failure, stage 5 N18.5 and Tachycardia R00.0 Assessments Encounter Date Diagnosis (ICD Code) Assessment Notes Treatment Notes Treatment Clinical Notes Section Notes 05/01/2024 Type 2 diabetes mellitus without complications (ICD-10 - E11.9) doing well on meds 05/01/2024 Staphylococcal septicemia (ICD-10 - A41.2) will need ab for 6 or 8 weeks. patient was in hospital for 2 weeks. lhad hypotension and had metoprolol and tamzulosin stopped. metoprolol was to control his heart rate. has an infected finger with staph and is being treated by the wound center. had echo with no vegetations. the source of the infection was presumably the caheter tip although coulture was negative. 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 patient was in hospital for 2 weeks. lhad hypotension and had metoprolol and tamzulosin stopped. metoprolol was to control his heart rate. has an infected finger with staph and is being treated by the wound center. had echo with no vegetations. the source of the infection was presumably the caheter tip although coulture was negative. 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 10 years ago but no pain there Chronic renal failure, stage 5 getting t he ab after the dialysis so the ab stay in until next dose Tachycardia will restart the met oprolol at a lower dose and whatch his bp Next Appt Details Follow Up: 2 Weeks, Reason: Provider Name:Hilton marc, 08/28/2024 10:15:00 AM, [address] [place] [address], [address], [phone], Provider Name:Hilton marc, 03/23/2025 07:15:00 AM, [address] [place] [address], [address], [phone], Provider Name:Hilton marc, 03/30/2025 10:30:00 AM, [address] [place] [address], [address], [phone], Progress Notes * Woody ALFREDO SDOB:1955 ( 68 yo M)Acc No.[id number]:05/01/2024 Patient:?Woody Alfredo Provider:?Hilton Pepe MD :1955???Age:68 Y???Sex:Male Moncho e:05/01/2024 Address:[address] [place], [place] [id number] Subjective: * Chief Complaints: * ???[facility] infectionAnnette trying to get Discharge Summary * HPI: ???Symptom(s):? patient is a 68 yo male here for transitional care management visit following recent hospitalization, felt unsteady after dialysis 3 weeks ago. got wobbly and fell on the floor. temp was 104. sent to hospital . the catheter was infected they thought. but finger burst open and pus started to come out of it. had ortho and infectious disease. getting iv antibiotics after dialysis 3 times per week. his bp was running too low so they stopped metoprolol and tamzulosin. * ROS:?General/Constitutional:?Denies?Chills.?Denies?Fatigue.?Denies?Fever.?Denies?Headache.?ENT:?Patient denies?decreased sense of smell , any loss of taste , sore throat.?Denies?Sore throat.?Respiratory:?Denies?Cough.?Denies?Shortness of breath at rest.?Denies?Shortness of breath with exertion.?Gastrointestinal:?Denies?Diarrhea.?Denies?Nausea.?Musculoskeletal:?Patient denies?muscle aches.?Peripheral Vascular:?Patient denies?red and blue toes.? * Medical History:? * Surgical History:? * Hospitalization/Major Diagno stic Procedure:? * Medications:?TakingFinasteri de 5 MG Tablet 1 tablet Orally Once a dayAtorvastatin Calcium 80 MG Tablet TAKE 1 TABLET BY MOUTH EVERY DAY Orally Once a dayAspirin 81 81 MG Tablet Delayed Release 1 tablet Orally Once a dayOneTouch Ultra - Strip use to test blood sugar invitro DxE11.9 three times a dayOneTouch FinePoint Lancets - Miscellaneous use to test blood sugar invitro DX e11.9 three times a dayFreeStyle Lite Test - Strip as directed In Vitro 3 times a dayClopidogrel Bisulfate 75 MG Tablet take 1 tablet by mouth every day Orally Once a dayTamsulosin HCl 0.4 MG Capsule TAKE 1 CAPSULE BY MOUTH EVERY DAY Taking Finasteride 5 MG Tablet 1 tablet Orally Once a dayTaking Atorvastatin Calcium 80 MG Tablet TAKE 1 TABLET BY MOUTH EVERY DAY Orally Once a dayTaking Aspirin 81 81 MG Tablet Delayed Release 1 tablet Orally Once a dayTaking OneTouch Ultra - Strip use to test blood sugar invitro DxE11.9 three times a dayTaking OneTouch FinePoint Lancets - Miscellaneous use to test blood sugar invitro DX e11.9 three times a dayTaking FreeStyle Lite Test - Strip as directed In Vitro 3 times a dayTaking Clopidogrel Bisulfate 75 MG Tablet take 1 tablet by mouth every day Orally Once a dayTaking Tamsulosin HCl 0.4 MG Capsule TAKE 1 CAPSULE BY MOUTH EVERY DAY Not-Taking/PRNFamotidine 20 MG Tablet 1 tablet at bedtime as needed Orally Once a dayMetoprolol Succinate ER 200 MG Tablet Extended Release 24 Hour 1 tablet Orally Once a dayamLODIPine Besylate 5 MG Tablet TAKE 1 TABLET BY MOUTH EVERY DAY Torsemide 10 MG Tablet take 1 tablet by mouth every day as directed Orally Once a dayMolnupiravir 200 MG Capsule 4 capsules Orally every 12 hrsmetFORMIN HCl 500 MG Tablet TAKE 1 TABLET BY MOUTH TWICE DAILY WITH A MEAL Orally twice adayMagnesium Oxide 400 MG Tablet 1 tablet as needed Orally Once a dayBenzonatate 100 MG Capsule 1 capsule as needed Orally Three times a dayMedication List reviewed and reconciled with the patientNot-Taking/PRN Famotidine 20 MG Tablet 1 tablet at bedtime as needed Orally Once a dayNot-Taking/PRN Metoprolol Succinate ER 200 MG Tablet Extended Release 24 Hour 1 tablet Orally Once a dayNot-Taking/PRN amLODIPine Besylate 5 MG Tablet TAKE 1 TABLET BY MOUTH EVERY DAY Not-Taking/PRN Torsemide 10 MG Tablet take 1 tablet by mouth every day as directed Orally Once a dayNot-Taking/PRN Molnupiravir 200 MG Capsule 4 capsules Orally every 12 hrsNot-Taking/PRN metFORMIN HCl 500 MG Tablet TAKE 1 TABLET BY MOUTH TWICE DAILY WITH A MEAL Orally twice adayNot-Taking/PRN Magnesium Oxide 400 MG Tablet 1 tablet as needed Orally Once a dayNot-Taking/PRN Benzonatate 100 MG Capsule 1 capsule as needed Orally Three times a dayMedication List reviewed and reconciled with the patient * Allergies:?N.K.D.A.yes[Aller gies Verified] Objective: * Vitals:?Ht: 72, Wt: 182, BMI :24.68, BP:112/60, HR:100, Wt-k.55. * Examination: ???General Examination: ?GENERAL APPEARANCE:?pleasant, in no acute distress , elderly , male.?HEAD:?normocephalic.?SKIN:?good turgor , no rashes.?HEART:?no murmurs, rubs, gallops , no murmurs, rubs, gallops , regular rate and rhythm.?LUNGS:?no wheezes, rales, rhonchi , good air movement , clear to auscultation bilaterally.?ABDOMEN:?soft, nontender, nondistended.? Assessment: * Assessment: 1.?Type 2 diabetes mellitus without complications - E11.9?2.?Staphylococcal septicemia - A41.2?3.?Chronic renal failure, stage 5 - N18.5?4.?Tachycardia - R00.0? Plan: * Treatment: ? Value Reference Range ?Value 168 Notes: doing well on meds??2.?Staphylococcal septicemia? Notes: will need ab for 6 or 8 weeks. patient was in hospital for 2 weeks. lhad hypotension and hadmetoprolol and tamzulosin stopped. metoprolol was to control his heart rate. has an infected fingerwith staph and is being treated by the wound center. had echo with no vegetations. the source of the infection was presumably the caheter tip although coulture was negative. 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 Notes: getting the ab after the dialysis so the ab stay in until next dose?? 4.?Tachycardia? Notes: will restart the metoprolol at a lower dose and whatch his bp?? * Procedure Codes:?02569 ASSAY , GLUCOSE, BLOOD QUANT, Modifiers: QW * Follow Up:?2 Weeks * * Sign off status: Completed true * Provider:?Hilton Pepe MD Date:?1 Generated for Helena burt/Jc/eTransmitting on:?08/22/2024 11:20 AM EST History and Physical Notes * HPI (History of Present Illness) Category Sub-Category Detail Notes Category Not es Symptom(s) patient is a 68 yo male here for transitional care management visit following recent hospitalization, felt unsteady after dialysis 3 weeks ago. got wobbly and fell on the floor. temp was 104. sent to hospital . the catheter was infected they thought. but finger burst open and pus started to come out of it. had ortho and infectious disease. getting iv antibiotics after dialysis 3 times per week. his bp was running too low so they stopped metoprolol and tamzulosin Examination Category Sub-Category Detail Notes Category Not es General Examination GENERAL APPEARANCE: pleasant , in no acute distress , elderly , male HEAD: normocephalic HEART: no murmurs, rubs, ga llops , no murmurs, rubs, gallops , regular rate and rhythm LUNGS: no wheezes, rales, r [place] , good air movement , clear to auscultation bilaterally ABDOMEN: soft, nontender, non distended SKIN: good turgor , no gabriella hes
--- OUTSIDE RECORDS SUMMARY | 2024-08-22 11:20 | XMS_ITS | Encounter Summary ---
Author Organization [facility] Facility Address [address] [facility] [address] [place] [address] Care Team Providers Care Riverboat Captain Name Role Phone Hilton Pepe MD Primary Care Provider Encounter Details Date Type Department Care Team (Latest Contact Info) Description 03/11/2024 Treatment Yossi Snider MD [address] [id number] Social History Tobacco Use Types Packs/Day Years Used Date Smoking Tobacco: Never Passive Smoke Exposure: Never Smokeless Tobacco: Never Alcohol Use Standard Drinks/Week Comments Never 0 (1 standard drink = 0.6 oz pur e alcohol) Sex and Gender Information Value Date Recorded Sex Assigned at Not on file Legal Sex Male 2:44 PM EDT Gender Identity Not on file Sexual Orientation Not on file documented as of this encounter Miscellaneous Notes * Dialysis Note - Yossi Snider MD - 03/11/2024 12:00 AM EDT Patient: Woody Alfredo : 1955 Note Type: Dialysis Rounds-CRYSTAL Service Date: 03/11/2024 This patient was personally seen during dialysis for the management of acute kidney injury requiring renal replacement therapy. Attending Senior Dot Net Developer: YOSSI SNIDER MD Dialysis Location: [facility] Schedule: Shift: 1 OVERVIEW Patient is stable. HOME MEDICATIONS Medications reviewed. Current [facility] Outpatient Medications aspirin EC tablet Take 81 mg by mouth 1 (one) time each day Start Date: atorvastatin (LIPITOR) tablet Take 80 mg by mouth 1 (one) time each day Start Date: clopidogrel (PLAVIX) tablet 75 mg Take 75 mg by mouth 1 (one) time each day Start Date: Empagliflozin (Jardiance) 10 MG tablet Reported on 02/22/2024 Start Date: metFORMIN (GLUCOPHAGE) tablet Take 500 mg by mouth in the morning and 500 mg in the evening. Take with meals. Start Date: metoprolol succinate (TOPROL-XL) 24 hr tablet Take 200 mg by mouth 1 (one) time each day Start Date: 01/29/2023 tamsulosin (FLOMAX) 24 hr capsule 0.4 mg Take by mouth 1 (one) time each day Start Date: 07/23/2022 torsemide (DEMADEX) tablet Take 10 mg by mouth 1 (one) time each day Start Date: 01/04/2023 Current [facility] Allergies Allergen: No Known Allergies BP AND FLUID ASSESSMENT Acceptable blood pressure. Fluid status acceptable. ADEQUACY ASSESSMENT Target met. Prescription compliance acceptable. ACCESS ASSESSMENT Vascular access examined. ANEMIA ASSESSMENT WHITNEY adjusted per protocol. Iron adjusted per protocol. BMM ASSESSMENT Bone and mineral metabolism parameters reviewed. NUTRITION ASSESSMENT Patient taking protein supplements. PHYSICAL EXAM Exam performed. Vital Signs Reviewed. Lungs - Clear. CV - Blood pressure noted. CV - RRR. No edema. EXT - No ulcers. ADDITIONAL LABS Hep B Surface Antibody NONREACTIVE (03/03/24) Signed by: Yossi Snider on 03/11/2024 at 09:25:04 PM Transcribed by: Yossi Snider on 03/11/2024 at 09:25:04 PM documented in this encounter Plan of Treatment Not on file documented as of this encounter Visit Diagnoses Not on filedocumented in this encounter Care Teams Riverboat Captain Relationship Specialty Start Date End Date Hilton Pepe MD [address] [place] [address] [id number] [place], [place] PCP - General Internal Medicine 03/23/22 documented as of this encounter
--- OUTSIDE RECORDS SUMMARY | 2024-08-22 11:20 | XMS_ITS | Encounter Summary ---
Author Organization [facility] Address [address] [facility] [address] [place] [address] Phone Care Team Providers Care Sanitation Worker Name Role Phone Hilton Pepe MD Primary Care Provider Encounter Details Date Type Department Care Team (Late st Contact Info) Description 03/28/2022 Office Communication [facility] [address] [facility] [address] [place] [address] Daria Moore Social History Tobacco Use Types Packs/Day Years [...] on file documented as of this encounter Plan of Treatment Not on file documented as of this encounter Visit Diagnoses Not on filedocumented in this encounter Care Teams Sanitation Worker Relationship Specialty Start Date End Date Hilton Pepe MD [address] [address] [address] [place] [address] PCP - General Internal Medicine 03/23/22 documented as of this encounter
--- OUTSIDE RECORDS SUMMARY | 2024-08-22 11:20 | XMS_ITS | Clinical Summary ---
Author Organization [facility] Address [address] [facility] [address] [place] [address] Phone Care Team Providers Care Batcher Operator Name Role Phone Hilton Pepe MD Primary Care Provider Allergies No known active allergies Medications aspirin (ST ANN) 81 MG EC tablet Take 81 mg by mouth 1 (one) time each day Active atorvastatin (LIPITOR) 80 MG tablet Take 80 mg by mouth 1 (one) time each day Active clopidogrel (PLAVIX) 75 MG tablet Take 75 mg by mouth 1 (one) time each day Active metFORMIN (GLUCOPHAGE) 500 MG tablet Take 500 mg by mouth in the morning and 500 mg in the evening. Take with meals. Active tamsulosin (FLOMAX) 0.4 MG 24 hr capsule Take by mouth 1 (one) time each day 3 Active metoprolol succinate XL (TOPROL-XL) 200 MG 24 hr tablet Take 200 mg by mouth 1 (one) time each day 3 Active torsemide (DEMADEX) 10 MG tablet Take 10 mg by mouth 1 (one) time each day 3 Active Empagliflozin (Jardiance) 10 MG tablet Take 10 mg by mouth 1 (one) time each day in the morning 30 tablet 5 4 Active Additional Information Patient not taking.Reported on 02/22/2024 sevelamer carbonate (RENVELA) 800 MG tablet TAKE 1 TABLET(800 MG) BY MOUTH IN THE MORNING AND IN THE EVENING WITH MEALS. SWALLOW TABLET WHOLE. 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 04/09/2023 Patient post percutaneous transluminal coronary angioplasty 04/09/2023 Pure hypercholesterolemia 04/09/20232022 Tubular adenoma 04/09/2023 04/09/2023 Vertigo 04/09/2023 04/09/2023 Chronic kidney disease stage 4 10/16/2022 Heart failure with reduced ejection fraction 04/2023 Bacteremia 04/26/2022 Hypertensive disorder 04/26/2022 Infection by methicillin sensitive Staphylococcu s aureus 04/26/2022 Infection of thoracic spine 04/26/2022 Type 2 diabetes mellitus 04/26/2022 Encounters Date Type Department Care Team Description 08/19/2024 Treatment [facility] [address] [address] Quinton Snider MD 08/14/2024 Treatment [facility] [address] [address] Quinton Snider MD 08/12/2024 Treatment [facility] [address] [address] Quinton Snider MD 07/29/2024 Treatment [facility] [address] [address] Quinton Snider MD 07/22/2024 Treatment [facility] [address] [address] Quinton Snider MD 07/15/2024 Treatment [facility] [address] [address] Quinton Snider MD 07/10/2024 Treatment [facility] [address] [address] Quinton Snider MD 06/30/2024 Treatment [facility] [address] [address] Quinton Snider MD 06/24/2024 Treatment [facility] [address] [address] Quinton Snider MD 06/18/2024 Refill [facility] [address] [place] [address] Quinton Snider MD 06/17/2024 Treatment [facility] [address] [address] Quinton Snider MD 2024 Treatment [facility] [address] [address] Quinton Snider MD 05/29/2024 Orders Only [facility] [address] [address] Quinton Snider MD 05/27/2024 Treatment [facility] [address] [address] Quinton Snider MD from Last 3 Months Immunizations Name Administration Dates Next Due Influenza (IM) Preservative Free 019,04/01/2018,03/27/2017,03/27 Influenza Split High Dose Pr eservative Free IM 04/28/2022,03/18/2021,03/19/2020 Influenza, Unspecified 04/28/2022,2020,03/19/2020,03/11,04/01/2018,03/27/2017,03/27/2016 ,05/19/2015 Moderna SARS-COV-2 03/02/2022, 1,06/24/2021,11/27,10/29/2020 Pneumococcal Conjugate 13-Valent 05/28/2017 Pneumococcal Polysaccharide 02/21/2021, 6,12/16/2015 SARS-CoV-2, Unspecified 05/30/2022 Family History Medical History Relation Comments Alzheimer's disease Mother Hypertension Mother Relation Status Comments Father Mother Social History Tobacco Use Types Packs/Day Years Used Date Smoking Tobacco: Never Passive Smoke Exposure: Never Smokeless Tobacco: Never Tobacco Cessation:Counseling Given: Not Answered Alcohol Use Standard Drinks/Week Comments Never 0 (1 standard drink = 0.6 oz pur e alcohol) Sex and Gender Information Value Date Recorded Sex Assigned at Not on file Legal Sex Male 2:44 PM EDT Gender Identity Not on file Sexual Orientation Not on file Last Filed Vital Signs Vital Sign Reading Time Taken Comments Blood Pressure 96/52 02/22/2024 10:16 AM EDT Pulse 77 02/22/2024 10:16 AM EDT Temperature - - Respiratory Rate - - Oxygen Saturation 98% 10/08/2023 1:49 PM EDT Inhaled Oxygen Concentration - - Weight 80.7 kg (178 lb) 02/22/2024 10:16 AM EDT Height - - Body Mass Index - - Plan of Treatment Health Maintenance Due Date Last Done Comments Hepatitis B Vaccine (1 of 5 - Risk Dialysis 4-dose series) 1973 Colorectal Cancer Screening: Annual FOBT 2002 Colorectal Cancer Screening: Colonoscopy 2002 Colorectal Cancer Screening: Sigmoidoscopy 2002 Diabetes: Ophthalmology Exam 03/28/2022 Diabetes: Pedal Pulse Checked 03/28/2022 Diabetes: Sensory Foot Exam 03/28/2022 Diabetes: Visual Foot Exam 03/28/2022 Influenza Vaccine (#1) 2024 2, 04/28/2022, 03/18/2021, Additional history exists Diabetes: Hemoglobin A1C 10/15/2024 07/17/2024 Pneumococcal Vaccine: 65+ Years Completed 02/21/2021, 05/28/2017, 12/17/2015, Additional history exists Procedures Procedure Name Priority Date/Time Associated Diagnosis Comments HEPATITIS B SURFACE ANTIGEN W/REFL CONFIRM Routine 08/14/2024 3:00 AM EST FERRITIN Routine 08/14/2024 3:00 AM EST TRANSFERRIN SATURATION Routine 3:00 AM EST PROTEIN, TOTAL, SERUM Routine 08/14/2024 3:00 AM EST MAGNESIUM Routine 08/14/2024 3:00 AM EST ELECTROLYTE PANEL Routine 08/14/2024 3:0 0 AM EST LIH (HC) Routine 08/14/2024 3:00 AM EST LACTATE DEHYDROGENASE Routine 08/14/2024 3:00 AM EST GLUCOSE, RANDOM Routine 08/14/2024 3:00 AM EST BILIRUBIN, TOTAL Routine 08/14/2024 3:00 AM EST CREATININE, SERUM Routine 08/14/2024 3:0 0 AM EST AST Routine 08/14/2024 3:00 AM EST CALCIUM PHOSPHORUS PRODUCT, ADJUSTED (HC) Routine 08/14/2024 3:00 AM EST ALT Routine 08/14/2024 3:00 AM EST ALKALINE PHOSPHATASE Routine 08/14/2024 3:00 AM EST KT/V NATURAL LOG, URR (HC) Routine 08/14/2024 3:00 AM EST CBC AND DIFFERENTIAL Routine 08/14/2024 3:00 AM EST HEPATITIS B SURFACE ANTIGEN W/REFL CONFIRM Routine 08/07/2024 3:00 AM EST HEMOGLOBIN Routine 08/07/2024 3:00 AM EST HEMOGLOBIN AND HEMATOCRIT, BLOOD Routine 07/31/2024 3:00 AM EST HEMOGLOBIN Routine 07/24/2024 3:00 AM EST ALUMINUM LEVEL Routine 07/17/2024 3:00 AM EST HEPATITIS C ABS W/REFLEX RNA DETECTR Routine 07/17/2024 3:00 AM EST CONFIRMATION TEST HCV Routine 07/17/2024 3:00 AM EST URIC ACID Routine 07/17/2024 3:00 AM EST TRANSFERRIN SATURATION Routine 3:00 AM EST PROTEIN, TOTAL, SERUM Routine 07/17/2024 3:00 AM EST ELECTROLYTE PANEL Routine 07/17/2024 3:0 0 AM EST MAGNESIUM Routine 07/17/2024 3:00 AM EST LIPID PANEL Routine 07/17/2024 3:00 AM EST LIH (HC) Routine 07/17/2024 3:00 AM EST CREATININE, SERUM Routine 07/17/2024 3:0 0 AM EST LACTATE DEHYDROGENASE Routine 07/17/2024 3:00 AM EST GLUCOSE, RANDOM Routine 07/17/2024 3:00 AM EST BILIRUBIN, TOTAL Routine 07/17/2024 3:00 AM EST AST Routine 07/17/2024 3:00 AM EST ALT Routine 07/17/2024 3:00 AM EST ALKALINE PHOSPHATASE Routine 07/17/2024 3:00 AM EST CALCIUM PHOSPHORUS PRODUCT, ADJUSTED (HC) Routine 07/17/2024 3:00 AM EST FERRITIN Routine 07/17/2024 3:00 AM EST HEPATITIS B SURFACE ANTIBODY QUANT Routine 07/17/2024 3:00 AM EST PTH, INTACT Routine 07/17/2024 3:00 AM EST HEMOGLOBIN A1C Routine 07/17/2024 3:00 AM EST HEMOGLOBIN Routine 07/17/2024 3:00 AM EST KT/V NATURAL LOG, URR (HC) Routine 07/17/2024 3:00 AM EST COLLECTION DATE (HC) Routine 07/17/2024 3:00 AM EST CREATININE, SERUM Routine 07/03/2024 3:0 0 AM EST LIH (HC) Routine 07/03/2024 3:00 AM EST HEPATITIS C ABS W/REFLEX RNA DETECTR Routine 06/26/2024 3:00 AM EST CONFIRMATION TEST HCV Routine 06/26/2024 3:00 AM EST HEPATITIS B SURFACE ANTIGEN W/REFL CONFIRM Routine 06/26/2024 3:00 AM EST LIH (HC) Routine 06/26/2024 3:00 AM EST PHOSPHATE ( PHOSPHORUS) Routine 06/26/2024 3:00 AM EST HEMOGLOBIN AND HEMATOCRIT, BLOOD Routine 06/26/2024 3:00 AM EST KT/V NATURAL LOG, URR (HC) Routine 06/19/2024 3:00 AM EST LIH (HC) Routine 06/19/2024 3:00 AM EST LIH (HC) Routine 06/17/2024 3:00 AM EST KT/V NATURAL LOG, URR (HC) Routine 06/17/2024 3:00 AM EST TRANSFERRIN SATURATION Routine 3:00 AM EST MAGNESIUM Routine 06/12/2024 3:00 AM EST PROTEIN, TOTAL, SERUM Routine 06/12/2024 3:00 AM EST LIH (HC) Routine 06/12/2024 3:00 AM EST ELECTROLYTE PANEL Routine 06/12/2024 3:0 0 AM EST GLUCOSE, RANDOM Routine 06/12/2024 3:00 AM EST LACTATE DEHYDROGENASE Routine 06/12/2024 3:00 AM EST AST Routine 06/12/2024 3:00 AM EST BILIRUBIN, TOTAL Routine 06/12/2024 3:00 AM EST ALT Routine 06/12/2024 3:00 AM EST ALKALINE PHOSPHATASE Routine 06/12/2024 3:00 AM EST CALCIUM PHOSPHORUS PRODUCT, ADJUSTED (HC) Routine 06/12/2024 3:00 AM EST FERRITIN Routine 06/12/2024 3:00 AM EST PTH, INTACT Routine 06/12/2024 3:00 AM EST CBC AND DIFFERENTIAL Routine 06/12/2024 3:00 AM EST KT/V NATURAL LOG, URR (HC) Routine 06/12/2024 3:00 AM EST HEMOGLOBIN AND HEMATOCRIT, BLOOD Routine 05/29/2024 3:00 AM EST FERRITIN Routine 05/22/2024 3:00 AM EST from Last 3 Months Results * LIH (08/14/2024 3:00 AM EST) Only the most recent of7 resultswithin the time period is included. Pathologist [facility] Lipemia Normal Normal [facility] Icterus Normal Normal [facility] Hemolysis Normal Normal [facility] 08/14/2024 3:00 AM EST 08/15/2024 12:27 PM EST us Quinton Snider MD LAB [id number] ICITED RESULTS Final Result [facility] [address] [place] [address] * (ABNORMAL) Kt/V Natural Log, URR (08/14/2024 3:00 AM EST) Only the most recent of5 resultswithin the time period is included. Pathologist [facility] Treatment Time 215 min [facility] Pre-Weight, lb 91.5 kg [facility] Post-Weight, lb 89.3 kg [facility] Ultrafiltration Rate 7 <=13 mL/kg/hr [facility] Comment: Recommend achieving Ultrafiltration Rate (UFR) <=10 mL/kg/hr References: Precious HERNANDEZ et al. Kidney Int. 2010; 79(2):250-257 BUN 42(H) 7 - 25 mg/dL [facility] BUN Post Dialysis 16 7 - 25 mg/dL [facility] UREA REDUCTION RATIO (%) 62(L) >=65 % [facility] Kt/V Natural Log 1.11(L) >=1.2 [facility] 08/14/2024 3:00 AM EST 08/15/2024 12:27 PM EST us Quinton Snider MD LAB [id number] ICITED RESULTS Final Result Performing Organization Address [facility]/ZIP Co de Phone Number [facility]PS [facility] [address] [place] [address] * (ABNORMAL) Calcium Phosphorus Product, Adjusted (08/14/2024 3:00 AM EST) Only the most recent of3 resultswithin the time period is included. Albumin 3.5(L) 3.6 - 5.4 g/dL [facility] Calcium 8.4(L) 8.6 - 10.3 mg/dL [facility] Phosphorus, Serum 5.0 2.5 - 5.0 mg/dL [facility] Ca*PO4 42.0 <55.0 mg2/dL2 [facility] Calcium, Adjusted Total 8.8 8.6 - 10.3 mg/dL [facility] CA*PO4 CORRCTD 44.0 <55.0 mg2/dL2 [facility] 08/14/2024 3:00 AM EST 08/15/2024 12:27 PM EST us Quinton Snider MD LAB [id number] ICITED RESULTS Final Result Performing Organization Address [facility] de Phone Number [facility]PS [facility] [address] [place] [address] * Hepatitis B Surface Ag w/Reflex Confirmation (08/14/2024 3:00 AM EST) Only the most recent of3 resultswithin the time period is included. Hep B Surface Antigen Negative Negative [facility] 08/14/2024 3:00 AM EST 08/15/2024 12:27 PM EST us Quinton Snider MD LAB BLOOD ORDERABLES Final Resul t Performing Organization Address [facility] Co de Phone Number [facility] [address] [place] [address] * (ABNORMAL) TSAT (08/14/2024 3:00 AM EST) Only the most recent of3 resultswithin the time period is included. Iron 100 65 - 175 ug/dL [facility] Transferrin 139(L) 215 - 365 mg/dL [facility] TIBC 195(L) 211 - 406 ug/dL [facility] Iron Saturation (TSat) 51 22 - 52 % [facility] 08/14/2024 3:00 AM EST 08/15/2024 12:27 PM EST Quinton Snider MD LAB BLOOD ORDERABLES Final Resul t [facility] [address] [place] [address] * (ABNORMAL) CBC and Differential (08/14/2024 3:00 AM EST) Only the most recent of2 resultswithin the time period is included. DIFFERENTIAL MANUAL, 2 Not Indicated [facility] White Blood Cells 6.0 4.2 - 9.1 K/uL [facility] RBC 4.29(L) 4.63 - 6.08 M/uL [facility] Hgb 13.3(L) 13.7 - 17.5 g/dL [facility] Hemoglobin x 3 39.9(L) 41.1 - 52.5 g/dL [facility] Hematocrit 41.8 40.1 - 51.0 % [facility] MCV 97.4(H) 79.0 - 92.2 fL [facility] MCH 31.0 25.7 - 32.2 pg [facility] MCHC 31.8(L) 32.3 - 36.5 g/dL [facility] Platelets 124(L) 163 - 337 K/uL [facility] RDW 14.4 11.6 - 14.4 % [facility] Neutrophils Relative 51.9 34.0 - 67.9 % [facility] Lymphocytes Relative 36.7 21.8 - 53.1 % [facility] Monocytes 7.2 5.3 - 12.2 % [facility] Eosinophils Relative 3.2 0.8 - 7.0 % [facility] Basophils Relative 0.7 0.2 - 1.2 % [facility] Immature Granulocytes 0.3 0.0 - 1.0 % [facility] 08/14/2024 3:00 AM EST 08/15/2024 12:30 PM EST us Quinton Snider MD LAB BLOOD ORDERABLES Final Resul t Performing Organization Address [facility] Co de Phone Number [facility] [address] [place] [address] * ALT (08/14/2024 3:00 AM EST) Only the most recent of3 resultswithin the time period is included. ALT (SGPT) 14 10 - 49 U/L [facility] 08/14/2024 3:00 AM EST 08/15/2024 12:27 PM EST us Quinton Snider MD LAB BLOOD ORDERABLES Final Resul t Performing Organization Address [facility] de Phone Number [facility] [address] [place] [address] * AST (08/14/2024 3:00 AM EST) Only the most recent of3 resultswithin the time period is included. AST (SGOT) 20 <34 U/L [facility] 08/14/2024 3:00 AM EST 08/15/2024 12:27 PM EST us Quinton Snider MD LAB BLOOD ORDERABLES Final Resul t Performing Organization Address [facility] de Phone Number [facility] [address] [place] [address] * (ABNORMAL) Protein, total (08/14/2024 3:00 AM EST) Only the most recent of3 resultswithin the time period is included. Total Protein 6.1(L) 6.4 - 8.9 g/dL [facility] 08/14/2024 3:00 AM EST 08/15/2024 12:27 PM EST us Quinton Snider MD LAB BLOOD ORDERABLES Final Resul t Performing Organization Address [facility] Co de Phone Number [facility] [address] [place] [address] * (ABNORMAL) Alkaline phosphatase (08/14/2024 3:00 AM EST) Only the most recent of3 resultswithin the time period is included. Alkaline Phosphatase 161(H) 46 - 116 U/L [facility] 08/14/2024 3:00 AM EST 08/15/2024 12:27 PM EST us Quinton Snider MD LAB BLOOD ORDERABLES Final Resul t Performing Organization Address [facility] de Phone Number [facility] [address] [place] [address] * Magnesium (08/14/2024 3:00 AM EST) Only the most recent of3 resultswithin the time period is included. Magnesium 2.0 1.9 - 2.7 mg/dL [facility] 08/14/2024 3:00 AM EST 08/15/2024 12:27 PM EST us Quinton Snider MD LAB BLOOD ORDERABLES Final Resul t Performing Organization Address [facility] de Phone Number [facility] [address] [place] [address] * Lactate dehydrogenase (08/14/2024 3:00 AM EST) Only the most recent of3 resultswithin the time period is included. LDH 197 120 - 246 U/L [facility] 08/14/2024 3:00 AM EST 08/15/2024 12:27 PM EST us Quinton Snider MD LAB BLOOD ORDERABLES Final Resul t Performing Organization Address [facility] de Phone Number [facility] [address] [place] [address] * Glucose, random (08/14/2024 3:00 AM EST) Only the most recent of3 resultswithin the time period is included. Glucose 104 74 - 109 mg/dL [facility] 08/14/2024 3:00 AM EST 08/15/2024 12:27 PM EST us Quinton Snider MD LAB BLOOD ORDERABLES Final Resul t Performing Organization Address City/[facility] Co de Phone Number [facility] [address] [place] [address] * Ferritin (08/14/2024 3:00 AM EST) Only the most recent of4 resultswithin the time period is included. Ferritin 190 22 - 322 ng/mL [facility] 08/14/2024 3:00 AM EST 08/15/2024 12:27 PM EST us Quinton Snider MD LAB BLOOD ORDERABLES Final Resul t Performing Organization Address [facility] Phone Number [facility] [address] [place] [address] * (ABNORMAL) Creatinine, serum (08/14/2024 3:00 AM EST) Only the most recent of3 resultswithin the time period is included. Creatinine 6.96(H) 0.70 - 1.30 mg/dL [facility] 08/14/2024 3:00 AM EST 08/15/2024 12:27 PM EST us Quinton Snider MD LAB BLOOD ORDERABLES Final Resul t Performing Organization Address [facility] de Phone Number [facility] [address] [place] [address] * (ABNORMAL) Bilirubin, total (08/14/2024 3:00 AM EST) Only the most recent of3 resultswithin the time period is included. Total Bilirubin 0.2(L) 0.3 - 1.2 mg/dL [facility] 08/14/2024 3:00 AM EST 08/15/2024 12:27 PM EST us Quinton Snider MD LAB BLOOD ORDERABLES Final Resul t Performing Organization Address [facility] de Phone Number [facility] [address] [place] [address] * Electrolyte panel (08/14/2024 3:00 AM EST) Only the most recent of3 resultswithin the time period is included. Sodium 143 136 - 145 mEq/L [facility] Potassium 4.7 3.4 - 5.0 mEq/L [facility] Chloride 106 98 - 107 mEq/L [facility] Bicarbonate (CO2) 23 21 - 31 mEq/L [facility] Anion Gap 14 3 - 14 mEq/L [facility] 08/14/2024 3:00 AM EST 08/15/2024 12:27 PM EST us Quinton Snider MD LAB BLOOD ORDERABLES Final Resul t Performing Organization Address [facility] de Phone Number [facility] [address] [place] [address] * (ABNORMAL) Hemoglobin (08/07/2024 3:00 AM EST) Only the most recent of3 resultswithin the time period is included. Hgb 13.5(L) 13.7 - 17.5 g/dL [facility] Hemoglobin x 3 40.5(L) 41.1 - 52.5 g/dL [facility] 08/07/2024 3:00 AM EST 08/08/2024 12:26 PM EST us Quinton Snider MD LAB BLOOD ORDERABLES Final Resul t Performing Organization Address [facility] de Phone Number [facility] [address] [place] [address] * (ABNORMAL) Hemoglobin and hematocrit (07/31/2024 3:00 AM EST) Only the most recent of3 resultswithin the time period is included. Hgb 13.6(L) 13.7 - 17.5 g/dL [facility] Hematocrit 43.2 40.1 - 51.0 % [facility] Hemoglobin x 3 40.8(L) 41.1 - 52.5 g/dL [facility] 07/31/2024 3:00 AM EST 08/01/2024 12:42 PM EST us Quinton Snider MD LAB BLOOD ORDERABLES Final Resul t Performing Organization Address [facility] de Phone Number [facility] [address] [place] [address] * Confirmation Test HCV (07/17/2024 3:00 AM EST) Only the most recent of2 resultswithin the time period is included. Hep C Ab Confirmation Not needed [facility] 07/17/2024 3:00 AM EST 07/21/2024 2:06 PM EST us Quinton Snider MD LAB BLOOD ORDERABLES Final Resul t Performing Organization Address [facility] de Phone Number [facility] [address] [place] [address] * Collection Date (07/17/2024 3:00 AM EST) Collection Date See Comment [facility] Comment: Patient sample received may exceed specimen stability, based on the collection date electronically provided. ??When reviewing patient results, verify collection information and consider specimen stability before acting on any critical or panic results. 07/17/2024 3:00 AM EST us Quinton Snider MD LAB [id number] ICITED RESULTS Final Result Performing Organization Address [facility] de Phone Number [facility] [address] [address] * HEPATITIS C ABS W/REFLEX RNA DETECTR (07/17/2024 3:00 AM EST) Only the most recent of2 resultswithin the time period is included. Hep C Virus Ab Non-Reacti ve Non-Reacti ve [facility] 07/17/2024 3:00 AM EST 07/21/2024 2:06 PM EST us Quinton Snider MD LAB [id number] ICITED RESULTS Final Result Performing Organization Address City/[facility]/ZIP Co de Phone Number [facility] [address] [place] [address] * Aluminum level (07/17/2024 3:00 AM EST) Aluminum 4 1 - 20 ug/L [facility] 07/17/2024 3:00 AM EST 07/21/2024 1:59 PM EST us Quinton Snider MD LAB BLOOD ORDERABLES Final Resul t Performing Organization Address [facility] Co de Phone Number [facility] [address] [place] [address] * (ABNORMAL) Hepatitis B Surface Antibody (07/17/2024 3:00 AM EST) Hep B Surface Antibody <4(A) mIU/mL [facility] Comment: Interpretation: <10: No Immunity >=10: Probable Immunity 07/17/2024 3:00 AM EST 07/21/2024 2:06 PM EST us Quinton Snider MD LAB BLOOD ORDERABLES Final Resul t Performing Organization Address [facility] de Phone Number [facility] [address] [place] [address] * Uric Acid (07/17/2024 3:00 AM EST) Uric Acid 4.7 4.4 - 7.6 mg/dL [facility] 07/17/2024 3:00 AM EST 07/21/2024 2:06 PM EST us Quinton Snider MD LAB BLOOD ORDERABLES Final Resul t Performing Organization Address [facility] Co de Phone Number [facility] [address] [place] [address] * PTH, Intact (07/17/2024 3:00 AM EST) Only the most recent of2 resultswithin the time period is included. PTH, Intact 206 160 - 721 pg/mL [facility] Comment: Suggested (KDIGO) ESRD maintenance range is two to nine times the upper normal limit (80.1 pg/mL) for the laboratory. 07/17/2024 3:00 AM EST 07/21/2024 2:06 PM EST Quinton Snider MD LAB BLOOD ORDERABLES Final Resul t Performing Organization Address [facility] Phone Number [facility] [address] [place] [address] * Hemoglobin A1c (07/17/2024 3:00 AM EST) Hemoglobin A1C 5.6 <5.7 % [facility] Comment: Methodology: Enzymatic HbA1c (NGSP %) ?Suggested Diagnosis >6.4% ? Diabetic 5.7-6.4% ?Pre-Diabetic <5.7% ? Non-Diabetic Diabetic Glucose Control Evaluation: Therapeutic action suggested at >8.0% ADA recommends a glycemic goal of <7.0% 07/17/2024 3:00 AM EST 07/21/2024 2:06 PM EST Quinton Snider MD LAB BLOOD ORDERABLES Final Resul t Performing Organization Address [facility] Phone Number [facility] [address] [place] [address] * (ABNORMAL) Lipid panel (07/17/2024 3:00 AM EST) Cholesterol 95 <200 mg/dL [facility] Comment: Optimal: ?<200 Borderline: ? 200-239 Higher Risk: ?>239 Triglycerides 92 <150 mg/dL [facility] Comment: Optimal: ?<150 Borderline High: ??150-199 High: ? 200-499 Very High: ?>499 HDL 28(A) >59 mg/dL [facility] Comment: Desirable: ?>59 Higher Risk: ?<40 LDL-Calc 49 <100 mg/dL [facility] Comment: Optimal: ?<100 Above Optimal: ?100-129 Borderline High: ??130-159 High: ? 160-189 Very High: ?>189 VLDL Cholesterol Cristi 18 <30 mg/dL [facility] Comment: Optimal: ?<30 Borderline High: ??30-39 High: ? 40-99 Very High: ?>99 Chol/HDL Ratio 3.4(A) <3.3 [facility] Comment: Optimal: ?<3.3 Higher Risk: ?>6.2 07/17/2024 3:00 AM EST 07/21/2024 2:06 PM EST Quinton Snider MD LAB BLOOD ORDERABLES Final Resul t Performing Organization Address [facility] de Phone Number [facility] [address] [place] [address] * (ABNORMAL) Phosphorus (06/26/2024 3:00 AM EST) Phosphorus, Serum 5.9(H) 2.5 - 5.0 mg/dL [facility] 06/26/2024 3:00 AM EST 06/27/2024 1:53 PM EST Quinton Snider MD LAB BLOOD ORDERABLES Final Resul t Performing Organization Address [facility] de Phone Number APS [facility] [address] [place] [address] from Last 3 Months Insurance [facility] Care Teams Batcher Operator Relationship Specialty Start Date End Date Hilton Pepe MD [address] [place] [address] [address] [place] [address] PCP - General Internal Medicine 03/23/22
--- OUTSIDE RECORDS SUMMARY | 2024-08-22 11:21 | XMS_ITS ---
Author Organization Hilton Pepe MD Address [address] [place] [phone] Care Team Providers Care Electro Mechanic Name Role Phone Hilton Pepe Primary Care Provider [phone] REASON FOR VISIT FASTING LIPIDS Encounters Encounter Location Date Provider Diagnosis Hilton Pepe MD [address] [place] [address] [place] [phone] 08/22/2024 Hilton Pepe High blood cholesterol E78.00 Assessments Encounter Date Diagnosis (ICD Code) Assessment Notes Treatment Notes Treatment Clinical Notes Section Notes 08/22/2024 High blood cholesterol (ICD-10 - E78.00) Plan Of Treatment Pending Test Test Name Order Date Liver Panel 08/22/2024 Lipid Panel with Reflex 08/22/2024 Next Appt Details Provider Name:Hilton marc, 08/28/2024 10:15:00 AM, [address] [place] [address], [address], [phone], Provider Name:Hilton marc, 03/23/2025 07:15:00 AM, [address] [place] [address], [address], [phone], Provider Name:Hilton marc, 03/30/2025 10:30:00 AM, [address] [place] [address], [address], [phone], Progress Notes * Donell ALFREDO SDOB:1955 ( 69 yo M)Acc No.[id number]:08/22/2024 Progress Note Patient:?Donell ALFREDO Provider:?Hilton Pepe MD :1955???Age:69 Y???Sex:Male Moncho e:08/22/2024 Address:[address] [place], [place] [id number] Subjective: * Chief Complaints: * ???1. FASTING LIPIDS. * Medical History:? Objective: * Vitals:? Assessment: * Assessment: 1.?High blood cholesterol - E78.00 (Primary)??? Plan: * Treatment: * Procedure Codes:?13574 VENIP UNCT, ROUTINE* * * The named appointment provid er may or may not be the originator of this progress note, and it is not deemed complete until electronically signed by the appointment provider. Sign off status: Pending * Provider:?Hilton Pepe MD Date:?0 08/22/2024 Generated for Helena burt/Jc/Asteritting on:?08/22/2024 11:21 AM EST
--- OUTSIDE RECORDS SUMMARY | 2024-08-22 11:21 | XMS_ITS | Encounter Summary ---
Author Organization [facility] Address [address] [address] Phone Care Team Providers Care Competitive Athlete Name Role Phone Hilton Pepe MD Primary Care Provider Encounter Details Date Type Department Care Team (Late st Contact Info) Description 08/19/2024 Treatment [facility] [address] [phone] Yossi Snider MD [address] [phone] Social History Tobacco Use Types [...] Dialysis Note - Yossi Snider MD - 08/19/2024 12:00 AM EST Patient: Woody Alfredo : 1955 Note Type: Dialysis Rounds-Basic Service Date: 08/19/2024 This patient was personally seen for a basic visit as part of routine monthly dialysis care for end stage renal disease. Attending Entrance Guard: YOSSI SNIDER MD Dialysis Location: [facility] Schedule: Shift: 1 HOME MEDICATIONS Current [facility] Medications aspirin EC tablet Take 81 [...] (one) time each day Start Date: 01/29/2023 sevelamer carbonate (RENVELA) 800 MG tablet TAKE 1 TABLET(800 MG) BY MOUTH IN THE MORNING AND IN THE EVENING WITH MEALS. SWALLOW TABLET WHOLE. DO NOT CRUSH, BREAK, OR CHEW Start Date: 06/18/2024 tamsulosin (FLOMAX) 24 hr capsule 0.4 mg Take by mouth 1 (one) time each day Start Date: 07/23/2022 torsemide (DEMADEX) tablet Take 10 mg by mouth 1 (one) time each day Start Date: 01/04/2023 Current [facility] Allergies Allergen: No Known Allergies ADEQUACY ASSESSMENT Kt/V, Natural Log 1.11 (08/14/24) 1.29 (07/17/24) 1.46 (06/19/24) UREA REDUCTION RATIO (%) 62 (08/14/24) 67 (07/17/24) 72 (06/19/24) BUN 42 (08/14/24) 42 (07/17/24) 54 (06/19/24) BUN Post Dialysis 16 (08/14/24) 14 (07/17/24) 15 (06/19/24) Creatinine 6.96 (08/14/24) 6.39 (07/17/24) 7.30 (07/03/24) Bicarbonate (CO2) 23 (08/14/24) 23 (07/17/24) 22 (06/12/24) Sodium 143 (08/14/24) 141 (07/17/24) 138 (06/12/24) ANEMIA ASSESSMENT Hgb 13.3 (08/14/24) 13.5 (08/07/24) 13.6 (07/31/24) Iron Saturation (TSat) 51 (08/14/24) 28 (07/17/24) 37 (06/12/24) Ferritin 190 (08/14/24) 176 (07/17/24) 318 (06/12/24) Iron 100 (08/14/24) 58 (07/17/24) 83 (06/12/24) TIBC 195 (08/14/24) 209 (07/17/24) 225 (06/12/24) MCV 97.4 (08/14/24) 100.3 (06/12/24) 99.6 (05/15/24) Platelets 124 (08/14/24) 135 (06/12/24) 102 (05/15/24) BMM ASSESSMENT Calcium, Adjusted Total 8.8 08/14/24 9.2 07/17/24 9.2 06/12/24 Calcium 8.4 08/14/24 9.1 07/17/24 9.2 06/12/24 Phosphorus, Serum 5.0 08/14/24 4.3 07/17/24 5.9 06/26/24 Ca*PO4 42.0 08/14/24 39.1 07/17/24 69.0 06/12/24 PTH, Intact 206 07/17/24 466 06/12/24 438 05/15/24 Magnesium 2.0 08/14/24 2.3 07/17/24 2.1 06/12/24 Alkaline Phosphatase 161 08/14/24 136 07/17/24 158 06/12/24 Aluminum 4 07/17/24 NUTRITION ASSESSMENT Albumin 3.5 08/14/24 3.9 07/17/24 4.1 06/12/24 Potassium 4.7 08/14/24 5.0 07/17/24 5.1 06/12/24 Hemoglobin A1C 5.6 07/17/24 ADDITIONAL LABS White Blood Cells 6.0 (08/14/24) 6.6 (06/12/24) 4.8 (05/15/24) Cholesterol 95 (07/17/24) HDL 28 (07/17/24) LDL-Calc 49 (07/17/24) Triglycerides 92 (07/17/24) Hep B Surface Antibody <4 (07/17/24) NONREACTIVE (03/03/24) Uric Acid 4.7 (07/17/24) Signed by: YOSSI SNIDER MD on 08/19/2024 at 07:01:51 AM documented in this encounter Plan of Treatment Not on file documented as of this encounter Visit Diagnoses Not on filedocumented in this encounter Care Teams Competitive Athlete Relationship Specialty Start Date End Date Hilton Pepe MD [address] [place], [place] PCP - General Internal Medicine 03/23/22 documented as of this encounter
--- OUTSIDE RECORDS SUMMARY | 2024-08-22 11:21 | XMS_ITS | Encounter Summary ---
Author Organization [facility] Address [address] [address] Phone Care Team Providers Care Lead Shipper Name Role Phone Hilton Pepe MD Primary Care Provider Encounter Details Date Type Department Care Team (Late st Contact Info) Description 08/14/2024 Treatment [facility] [address] [phone] Yossi Snider MD [address] [phone] Social History Tobacco Use Types [...] Dialysis Note - Yossi Snider MD - 08/14/2024 12:00 AM EST Patient: Woody Alfredo : 1955 Note Type: Dialysis Rounds-Basic Service Date: 08/14/2024 This patient was personally seen for a basic visit as part of routine monthly dialysis care for end stage renal disease. Attending Buffing Wheel Inspector: YOSSI SNIDER MD Dialysis Location: [facility] Schedule: Shift: 1 HOME MEDICATIONS Current [...] Known Allergies ADEQUACY ASSESSMENT Kt/V, Natural Log 1.29 (07/17/24) 1.46 (06/19/24) 1.13 (06/17/24) UREA REDUCTION RATIO (%) 67 (07/17/24) 72 (06/19/24) 62 (06/17/24) BUN 42 (07/17/24) 54 (06/19/24) 58 (06/17/24) BUN Post Dialysis 14 (07/17/24) 15 (06/19/24) 22 (06/17/24) Creatinine 6.39 (07/17/24) 7.30 (07/03/24) 6.98 (05/15/24) Bicarbonate (CO2) 23 (07/17/24) 22 (06/12/24) 25 (05/15/24) Sodium 141 (07/17/24) 138 (06/12/24) 141 (05/15/24) ANEMIA ASSESSMENT Hgb 13.5 (08/07/24) 13.6 (07/31/24) 12.8 (07/24/24) Iron Saturation (TSat) 28 (07/17/24) 37 (06/12/24) 47 (05/15/24) Ferritin 176 (07/17/24) 318 (06/12/24) 276 (05/22/24) Iron 58 (07/17/24) 83 (06/12/24) 93 (05/15/24) TIBC 209 (07/17/24) 225 (06/12/24) 199 (05/15/24) MCV 100.3 (06/12/24) 99.6 (05/15/24) Platelets 135 (06/12/24) 102 (05/15/24) BMM ASSESSMENT Calcium, Adjusted Total 9.2 07/17/24 9.2 06/12/24 9.0 05/15/24 Calcium 9.1 07/17/24 9.2 06/12/24 8.8 05/15/24 Phosphorus, Serum 4.3 07/17/24 5.9 06/26/24 7.5 06/12/24 Ca*PO4 39.1 07/17/24 69.0 06/12/24 47.5 05/15/24 PTH, Intact 206 07/17/24 466 06/12/24 438 05/15/24 Magnesium 2.3 07/17/24 2.1 06/12/24 2.0 05/15/24 Alkaline Phosphatase 136 07/17/24 158 06/12/24 154 05/15/24 Aluminum 4 07/17/24 NUTRITION ASSESSMENT Albumin 3.9 07/17/24 4.1 06/12/24 3.7 05/15/24 Potassium 5.0 07/17/24 5.1 06/12/24 5.2 05/15/24 Hemoglobin A1C 5.6 07/17/24 ADDITIONAL LABS White Blood Cells 6.6 (06/12/24) 4.8 (05/15/24) Cholesterol 95 (07/17/24) HDL 28 (07/17/24) LDL-Calc 49 (07/17/24) Triglycerides 92 (07/17/24) Hep B Surface Antibody <4 (07/17/24) NONREACTIVE (03/03/24) Uric Acid 4.7 (07/17/24) Signed by: YOSSI SNIDER MD on 08/14/2024 at 07:59:39 AM documented in this encounter Plan of Treatment Not on file documented as of this encounter Visit Diagnoses Not on filedocumented in this encounter Care Teams Lead Shipper Relationship Specialty Start Date End Date Hilton Pepe MD [address] [place] [address] [address] [facility] [place] PCP - General Internal Medicine 03/23/22 documented as of this encounter
--- OUTSIDE RECORDS SUMMARY | 2024-08-22 11:21 | XMS_ITS | Encounter Summary ---
Author Organization [facility] Address [address] [address] Phone Care Team Providers Care Facility Maintenance Helper Name Role Phone Hilton Pepe MD Primary Care Provider [phone] Encounter Details Date Type Department Care Team (Late st Contact Info) Description 07/22/2024 Treatment [facility] [address] [phone] Yossi Snider MD [address] [address] Social History Tobacco Use Types [...] Dialysis Note - Yossi Snider MD - 07/22/2024 12:00 AM EST Patient: Woody Alfredo : 1955 Note Type: Dialysis Rounds-Basic Service Date: 07/22/2024 This patient was personally seen for a basic visit as part of routine monthly dialysis care for end stage renal disease. Attending Asphalt Tile Floor Layer: YOSSI SNIDER MD Dialysis Location: [facility] Schedule: Shift: 1 HOME MEDICATIONS Current [...] 138 (06/12/24) 141 (05/15/24) ANEMIA ASSESSMENT Hgb 12.2 (07/17/24) 11.1 (06/26/24) 10.0 (06/12/24) Iron Saturation (TSat) 28 (07/17/24) 37 (06/12/24) [...] Phosphatase 136 07/17/24 158 06/12/24 154 05/15/24 NUTRITION ASSESSMENT Albumin 3.9 07/17/24 4.1 06/12/24 3.7 05/15/24 Potassium 5.0 07/17/24 5.1 06/12/24 5.2 05/15/24 Hemoglobin A1C 5.6 07/17/24 ADDITIONAL LABS White Blood Cells 6.6 (06/12/24) 4.8 (05/15/24) Cholesterol 95 (07/17/24) HDL 28 (07/17/24) LDL-Calc 49 (07/17/24) Triglycerides 92 (07/17/24) Hep B Surface Antibody <4 (07/17/24) NONREACTIVE (03/03/24) Uric Acid 4.7 (07/17/24) Signed by: YOSSI SNIDER MD on 07/22/2024 at 12:22:16 PM Transcribed by: YOSSI SNIDER MD on 07/22/2024 at 12:22:16 PM documented in this encounter Plan of Treatment Not on file documented as of this encounter Visit Diagnoses Not on filedocumented in this encounter Care Teams Facility Maintenance Helper Relationship Specialty Start Date End Date Hilton Pepe MD [address] [place], [place] PCP - General Internal Medicine 03/23/22 documented as of this encounter
--- OUTSIDE RECORDS SUMMARY | 2024-08-22 11:21 | XMS_ITS | Encounter Summary ---
Author Organization [facility] Address [address] [address] Phone Care Team Providers Care Occupational Analyst Name Role Phone Hilton Pepe MD Primary Care Provider Encounter Details Date Type Department Care Team (Late st Contact Info) Description 07/29/2024 Treatment [facility] [address] [address] Yossi Snider MD [address] [address] Social History Tobacco Use Types [...] Dialysis Note - Yossi Snider MD - 07/29/2024 12:00 AM EST Patient: Woody Alfredo : 1955 Note Type: Dialysis Rounds-Basic Service Date: 07/29/2024 This patient was personally seen for a basic visit as part of routine monthly dialysis care for end stage renal disease. Attending Street Sprinkler: YOSSI SNIDER MD Dialysis Location: [facility] Schedule: Shift: 1 HOME MEDICATIONS Current [...] 138 (06/12/24) 141 (05/15/24) ANEMIA ASSESSMENT Hgb 12.8 (07/24/24) 12.2 (07/17/24) 11.1 (06/26/24) Iron Saturation (TSat) 28 (07/17/24) 37 (06/12/24) [...] (07/17/24) Signed by: YOSSI SNIDER MD on 07/29/2024 at 08:27:39 AM documented in this encounter Plan of Treatment Not on file documented as of this encounter Visit Diagnoses Not on filedocumented in this encounter Care Teams Occupational Analyst Relationship Specialty Start Date End Date Hilton Pepe MD [address] [place] [address] [address] [facility] [place] PCP - General Internal Medicine 03/23/22 documented as of this encounter
--- OUTSIDE RECORDS SUMMARY | 2024-08-22 11:21 | XMS_ITS | Encounter Summary ---
Author Organization [facility] Address [address] [address] Phone Care Team Providers Care Long Haul Truck Driver Name Role Phone Hilton Pepe MD Primary Care Provider Encounter Details Date Type Department Care Team (Late st Contact Info) Description 08/12/2024 Treatment [facility] [address] [address] Yossi Snider MD [address] [address] Social History Tobacco Use Types [...] Dialysis Note - Yossi Snider MD - 08/12/2024 12:00 AM EST Patient: Woody Alfredo : 1955 Note Type: Dialysis Rounds-Comp Service Date: 08/12/2024 This patient was personally seen for a complete visit as part of routine monthly dialysis care for end stage renal disease. Attending Reimbursement Manager: YOSSI SNIDER MD Dialysis Location: [facility] Schedule: Shift: 1 HOME MEDICATIONS Current [...] (07/17/24) Signed by: YOSSI SNIDER MD on 08/12/2024 at 09:01:06 AM * Dialysis Note - Yossi Snider MD - 08/12/2024 12:00 AM EST Patient: Woody Alfredo : 1955 Note Type: Dialysis Rounds-Comp Service Date: 08/12/2024 This patient was personally seen for a complete visit as part of routine monthly dialysis care for end stage renal disease. Attending Reimbursement Manager: YOSSI SNIDER MD Dialysis Location: [facility] Schedule: Shift: 1 OVERVIEW Patient is stable. HOME MEDICATIONS Current [facility] Medications aspirin EC tablet Take 81 [...] time each day Start Date: 01/04/2023 Current [facility] Allergies Allergen: No Known Allergies BP AND FLUID ASSESSMENT Acceptable blood pressure. Fluid status acceptable. ADEQUACY ASSESSMENT Target met. Prescription compliance acceptable. Continue with greater than 3x more frequent dialysis prescription. Kt/V, Natural Log 1.29 (07/17/24) 1.46 (06/19/24) 1.13 (06/17/24) UREA REDUCTION RATIO (%) 67 (07/17/24) 72 (06/19/24) 62 (06/17/24) BUN 42 (07/17/24) 54 (06/19/24) 58 (06/17/24) BUN Post Dialysis 14 (07/17/24) 15 (06/19/24) 22 (06/17/24) Creatinine 6.39 (07/17/24) 7.30 (07/03/24) 6.98 (05/15/24) Bicarbonate (CO2) 23 (07/17/24) 22 (06/12/24) 25 (05/15/24) Sodium 141 (07/17/24) 138 (06/12/24) 141 (05/15/24) ACCESS ASSESSMENT Vascular access examined. ANEMIA ASSESSMENT WHITNEY adjusted per protocol. Iron adjusted per protocol. Hgb 13.5 (08/07/24) 13.6 (07/31/24) 12.8 (07/24/24) Iron Saturation (TSat) 28 (07/17/24) 37 (06/12/24) 47 (05/15/24) Ferritin 176 (07/17/24) 318 (06/12/24) 276 (05/22/24) Iron 58 (07/17/24) 83 (06/12/24) 93 (05/15/24) TIBC 209 (07/17/24) 225 (06/12/24) 199 (05/15/24) MCV 100.3 (06/12/24) 99.6 (05/15/24) Platelets 135 (06/12/24) 102 (05/15/24) BMM ASSESSMENT Bone and mineral metabolism parameters reviewed. Calcium, Adjusted Total 9.2 07/17/24 9.2 06/12/24 9.0 05/15/24 Calcium 9.1 07/17/24 9.2 06/12/24 8.8 05/15/24 Phosphorus, Serum 4.3 07/17/24 5.9 06/26/24 7.5 06/12/24 Ca*PO4 39.1 07/17/24 69.0 06/12/24 47.5 05/15/24 PTH, Intact 206 07/17/24 466 06/12/24 438 05/15/24 Magnesium 2.3 07/17/24 2.1 06/12/24 2.0 05/15/24 Alkaline Phosphatase 136 07/17/24 158 06/12/24 154 05/15/24 Aluminum 4 07/17/24 NUTRITION ASSESSMENT Albumin at goal. Albumin 3.9 07/17/24 4.1 06/12/24 3.7 05/15/24 Potassium 5.0 07/17/24 5.1 06/12/24 5.2 05/15/24 Hemoglobin A1C 5.6 07/17/24 PHYSICAL EXAM Exam not performed. ADDITIONAL LABS White Blood Cells 6.6 (06/12/24) 4.8 (05/15/24) Cholesterol 95 (07/17/24) HDL 28 (07/17/24) LDL-Calc 49 (07/17/24) Triglycerides 92 (07/17/24) Hep B Surface Antibody <4 (07/17/24) NONREACTIVE (03/03/24) Uric Acid 4.7 (07/17/24) Signed by: YOSSI SNIDER MD on 08/12/2024 at 09:01:58 AM documented in this encounter Plan of Treatment Not on file documented as of this encounter Visit Diagnoses Not on filedocumented in this encounter Care Teams Long Haul Truck Driver Relationship Specialty Start Date End Date Hilton Pepe MD [address] [place], [place] PCP - General Internal Medicine 03/23/22 documented as of this encounter
[2024-08-22 11:33] LABS: Alanine Aminotransferase < 6 U/L (0-40); Albumin Level 3.9 g/dL (3.5-5.0); Alkaline Phosphatase 164 U/L (39-117); Aspartate Amino Transferase 47 U/L (5-37); Bilirubin Direct 0.2 mg/dL (0.0-0.5); Bilirubin Total 0.6 mg/dL (0.0-1.0); Cholesterol 82 mg/dL (<200); HDL Cholesterol 31 mg/dL (>40); LDL Cholesterol Calculated 39 mg/dL (<100); Total Protein 7.2 g/dL (6.5-8.0); Triglycerides 61 mg/dL (<150)
[2024-08-22 11:50] LABS: Reflex LDLD? No
== END 2024-08-22 07:31 | disposition home or self-care (01) ==
LOC: HO.LNP 07:30
PROVIDERS: Visit Provider Internal Medicine
DX: E78.00 Pure hypercholesterolemia, unspecified (principal)
CPT/HCPCS: 80061; 80076

== ENCOUNTER 2024-09-17 12:08 | Outpatient (AMB) | payer MEDICARE, SELFPAY ==
[2024-09-17 12:31] VITALS: BP 110/60; PULSE 78; BMI 27.5
--- NOTE | 2024-09-17 12:31 | A.OFFVIS_ITS ---
Vital Signs 09/17/24 12:31 Height 6 ft Weight 202 lb 13.204 oz BMI 27.5 BP 110/60 Blood Pressure Location Lt brachial Position Sitting Pulse 78 Pulse Source Pulse Oximeter Intake Visit Reasons: 2m follow up Allergies No Known Allergies Allergy (Verified 06/04/24 14:10) Medication List - Last Reconciled 09/17/24 by Robert Perry MD aspirin 81 mg PO DAILY atorvastatin 80 mg PO BEDTIME clopidogrel 75 mg PO DAILY famotidine 20 mg PO DAILY metoprolol succinate ER 25 mg PO DAILY sevelamer carbonate 800 mg PO DAILY tamsulosin 0.4 mg PO DAILY HPI Comments Details: Woody returns for follow up. Previously going to [facility] but would like to switch to [place]. I To recall, he underwent cardiac catheterization in 2022 for anterior STEMI. At that time, diagnosed to have three-vessel disease. Occluded proximal LAD, thought to be culprit. He also had severe stenosis in the proximal circumflex and presumed occluded RCA with [id number]-hejkq collaterals. Underwent PCI to LAD. Otherwise, he has ESRD and recently started hemodialysis. For the most part, he states he is doing okay. Does not have any active cardiac symptoms. [facility] Medical History CKD (chronic kidney disease) Incomplete bladder emptying Obstructive uropathy Non-insulin dependent type 2 diabetes mellitus CKD (chronic kidney disease) stage 3, GFR 30-59 ml/min Heart failure Hyperlipidemia STEMI (ST elevation myocardial infarction) CAD (coronary artery disease) CVA (cerebral vascular accident) Family History (Updated 07/16/24 @ 14:34 by Afua Charles) Mother No problems noted. Father No problems noted. Social History Household Members: Family Household Members Other:: and daughter Housing: House Do you presently have visiting nurse or other home services: No Patient Tobacco Use Status: Never used Tobacco Second Hand Smoke Exposure: No Advance Directives Date on File: 02/29/24 service: No Review of Systems Const Denies weakness ENT Denies dizziness Card Denies chest pain, Denies chest pain with activity, Denies syncope, Denies rapid heart rate, Denies pedal edema, Denies edema, Denies leg edema, Denies lightheadedness, Denies palpitations, Denies dyspnea, Denies dyspnea on exertion and Denies orthopnea Resp Denies cough, Denies dyspnea and Denies dyspnea on exertion GI Denies hematochezia and Denies change in stool character Musc Denies abnormal gait, Denies muscle cramps, Denies muscle weakness, Denies numbness, Denies radiating pain into limb and Denies tingling Neuro Denies abnormal gait, Denies dizziness, Denies syncope, Denies numbness, Denies tingling and Denies weakness Endo Denies palpitations Physical Exam Vital Signs: Last Vital Signs Pulse 78 09/17/24 12:31 BP 110/60 09/17/24 12:31 BMI result Body Mass Index 27.5 Const General: comfortable and no acute distress Orientation/consciousness: patient oriented x3 HEENT Other: Unremarkable Head: Yes normal to inspection Neck Neck: Yes normal visual inspection Chest Chest palpation & inspection: normal inspection of the chest Resp Auscultation: clear to auscultation bilaterally Cardio Palpation: normal PMI Heart sounds: S1 normal heart sound present, S2 normal heart sound present, no gallops, no murmurs and no rubs GI Palpation (GI): Soft to palpation Back/Spine/Pelvis Other: unremarkable Skin General skin exam: no rashes or lesions noted Neuro General: patient oriented x3 Extrem General: Yes normal to inspection Psych Mental Status: mental status grossly normal Assessment & Plan Assessment & Plan (1) Atherosclerotic cardiovascular disease: Code(s): I25.10 - Atherosclerotic heart disease of [place] coronary artery without angina pectoris Category: Medical Plan: In the cardiac catheterization from 07/20220459-wkboh-synngh disease. Occluded proximal LAD thought to be the culprit. Severe proximal circumflex stenosis. Presumed occluded RCA with ftlq-bl-rzgwq collaterals. Status post PCI to LAD. Clinically, no cardiac symptoms at all. No angina. Continue long-term aspirin. Plavix can be continued for the foreseeable future as there is no bleeding issue. Continue beta-blockers high-dose statins. (2) Ischemic cardiomyopathy: Code(s): I25.5 - Ischemic cardiomyopathy Category: Medical Plan: Echocardiogram with LVEF of 30-35%. Wall motion abnormalities from underlying coronary disease. In a prior echocardiogram from 2022, LVEF 20-25%. Clinically, he does not have any overt heart failure symptoms or signs. We discussed about ICD for primary prevention. Probably subcutaneous ICD. He would like to get another echocardiogram to see if they LVEF improved or not before making that decision. Ordered. (3) ESRD (end stage renal disease) on dialysis: Code(s): N18.6 - End stage renal disease; Z99.2 - Dependence on renal dialysis Category: Medical Plan: On dialysis. Plan I discussed with the patient the implications of his current cardiac function and the potential necessity for a defibrillator, emphasizing the device's capacity to prevent sudden cardiac in cases of dangerous arrhythmias. The patient is aware of the potential for firing without prior symptoms, as experienced by an acquaintance. I also addressed the possible discontinuation of Clopidogrel considering the elapsed time since stent placement. Consent for echocardiography was obtained, with an understanding that results will influence further management. We will reassess in six months, allowing for any emergent issues to dictate earlier intervention. Orders: Orders CA echo transthoracic complete Today I25.10 - Atherosclerotic heart disease of [place] coronary artery without angina pectoris, I25.5 - Ischemic cardiomyopathy Patient Instructions: - Attend scheduled echocardiogram. - Continue current dialysis schedule three times weekly. - Follow medication regimen as currently prescribed. - Notify healthcare providers of any new or worsening symptoms, including chest pain or sudden changes in balance. Coding Level of Care Code Est Pt Level 4 (49642) Complex EM visit Add On G2211 Diagnoses Atherosclerotic cardiovascular disease I25.10 Ischemic cardiomyopathy I25.5 ESRD (end stage renal disease) on dialysis N18.6; Z99.2
--- OUTSIDE RECORDS SUMMARY | 2024-09-17 14:10 | XMS_ITS | Clinical Summary ---
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 [address] [address] Quinton Snider MD End stage renal disease; Dependence on renal dialysis 09/11/2024 Treatment [facility] [address] [address] Quinton Snider MD End stage renal disease; Dependence on renal dialysis 09/09/2024 Treatment [facility] [address] [address] Quinton Snider MD End stage renal disease; Dependence on renal dialysis 09/02/2024 Treatment [facility] [address] [address] Quinton Snider MD 08/26/2024 Treatment [facility] [address] [address] Quinton Snider MD 08/19/2024 Treatment [facility] [address] [address] Quinton Snider MD 08/14/2024 Treatment [facility] [address] [address] Quinton Snider MD 08/12/2024 Treatment [facility] [address] [address] Quinton Snider MD 07/29/2024 Treatment [facility] [address] [address] Quinton Snider MD 07/22/2024 Treatment [facility] [address] [address] Quinton Snider MD 07/15/2024 Treatment [facility] [address] [address] Quinton Snider MD 07/10/2024 Treatment [facility] [address] [address] Quinton Snider MD 06/30/2024 Treatment [facility] [address] [address] Quinton Snider MD 06/24/2024 Treatment [facility] [address] [address] Quinton Snider MD from Last 3 Months [...] HEPATITIS B SURFACE ANTIGEN W/REFL CONFIRM Routine 09/11/2024 3:00 AM EST PROTEIN, TOTAL, SERUM Routine 09/11/2024 3:00 AM EST TRANSFERRIN SATURATION Routine 3:00 AM EST ELECTROLYTE PANEL Routine 09/11/2024 3:0 0 AM EST LIH (HC) Routine 09/11/2024 3:00 AM EST GLUCOSE, RANDOM Routine 09/11/2024 3:00 AM EST LACTATE DEHYDROGENASE Routine 09/11/2024 3:00 AM EST MAGNESIUM Routine 09/11/2024 3:00 AM EST CREATININE, SERUM Routine 09/11/2024 3:0 0 AM EST BILIRUBIN, TOTAL Routine 09/11/2024 3:00 AM EST AST Routine 09/11/2024 3:00 AM EST ALKALINE PHOSPHATASE Routine 09/11/2024 3:00 AM EST CALCIUM PHOSPHORUS PRODUCT, ADJUSTED (HC) Routine 09/11/2024 3:00 AM EST ALT Routine 09/11/2024 3:00 AM EST FERRITIN Routine 09/11/2024 3:00 AM EST CBC AND DIFFERENTIAL Routine 09/11/2024 3:00 AM EST KT/V NATURAL LOG, URR (HC) Routine 09/11/2024 3:00 AM EST HEMOGLOBIN Routine 09/04/2024 3:00 AM EST HEMOGLOBIN Routine 09/02/2024 3:00 AM EST HEMOGLOBIN AND HEMATOCRIT, BLOOD Routine 08/28/2024 3:00 AM EST LIH (HC) Routine 08/21/2024 3:00 AM EST KT/V NATURAL LOG, URR (HC) Routine 08/21/2024 3:00 AM EST HEPATITIS B SURFACE ANTIGEN [...] LIH (HC) Routine 06/19/2024 3:00 AM EST from Last 3 Months Results * LIH (09/11/2024 3:00 AM EST) Only the most recent of7 resultswithin the time period is included. Lipemia Normal Normal [facility] Icterus Normal Normal [facility] Hemolysis Normal Normal [facility] 09/11/2024 3:00 AM EST 09/12/2024 12:13 PM EST Quinton Snider MD LAB [id number] ICITED RESULTS Final Result APS [facility] [address] [place] [address] * (ABNORMAL) Kt/V Natural Log, URR (09/11/2024 3:00 AM EST) Only the most recent of5 resultswithin the time period is included. Treatment Time 213 min [facility] Pre-Weight, lb 93.7 kg [facility] Post-Weight, lb 92.0 kg [facility] Ultrafiltration Rate 5 <=13 mL/kg/hr [facility] Comment: Recommend achieving Ultrafiltration Rate (UFR) <=10 mL/kg/hr References: Precious HERNANDEZ et al. Kidney Int. 2010; 79(2):250-257 BUN 56(H) 7 - 25 mg/dL [facility] BUN Post Dialysis 17 7 - 25 mg/dL [facility] UREA REDUCTION RATIO (%) 70 >=65 % [facility] Kt/V Natural Log 1.34 >=1.2 [facility] 09/11/2024 3:00 AM EST 09/12/2024 12:09 PM EST Quinton Snider MD LAB [id number] ICITED RESULTS Final Result [facility]PS [facility] [address] [place] [address] * Calcium Phosphorus Product, Adjusted (09/11/2024 3:00 AM EST) Only the most recent of3 resultswithin the time period is included. Albumin 3.8 3.6 - 5.4 g/dL [facility] Calcium 9.1 8.6 - 10.3 mg/dL [facility] Phosphorus, Serum 4.0 2.5 - 5.0 mg/dL [facility] Ca*PO4 36.4 <55.0 mg2/dL2 [facility] Calcium, Adjusted Total 9.3 8.6 - 10.3 mg/dL [facility] CA*PO4 CORRCTD 37.2 <55.0 mg2/dL2 [facility] 09/11/2024 3:00 AM EST 09/12/2024 12:13 PM EST Quinton Snider MD LAB [id number] ICITED RESULTS Final Result [facility] [address] [place] [address] * Hepatitis B Surface Ag w/Reflex Confirmation (09/11/2024 3:00 AM EST) Only the most recent of4 resultswithin the time period is included. Hep B Surface Antigen Negative Negative [facility] 09/11/2024 3:00 AM EST 09/12/2024 12:13 PM EST Quinton Snider MD LAB BLOOD ORDERABLES Final Resul t Performing Organization Address City/[facility] Co de Phone Number [facility]PS [facility] [address] [place] [address] * (ABNORMAL) TSAT (09/11/2024 3:00 AM EST) Only the most recent of3 resultswithin the time period is included. [facility] [address] Iron 96 65 - 175 ug/dL [facility] Transferrin 138(L) 215 - 365 mg/dL [facility] TIBC 193(L) 211 - 406 ug/dL [facility] Iron Saturation (TSat) 50 22 - 52 % [facility] 09/11/2024 3:00 AM EST 09/12/2024 12:13 PM EST Quinton Snider MD LAB BLOOD ORDERABLES Final Resul t Performing Organization Address [facility] de Phone Number [facility]PS [facility] [address] [place] [address] * (ABNORMAL) CBC and Differential (09/11/2024 3:00 AM EST) Only the most recent of2 resultswithin the time period is included. [facility] [address] DIFFERENTIAL MANUAL, 2 Not Indicated [facility] White Blood Cells 5.9 4.2 - 9.1 K/uL [facility] RBC 3.27(L) 4.63 - 6.08 M/uL [facility] Hgb 9.6(L) 13.7 - 17.5 g/dL [facility] Hemoglobin x 3 28.8(L) 41.1 - 52.5 g/dL [facility] Hematocrit 31.1(L) 40.1 - 51.0 % [facility] MCV 95.1(H) 79.0 - 92.2 fL [facility] MCH 29.4 25.7 - 32.2 pg [facility] MCHC 30.9(L) 32.3 - 36.5 g/dL [facility] Platelets 160(L) 163 - 337 K/uL [facility] RDW 14.1 11.6 - 14.4 % [facility] Neutrophils Relative 58.8 34.0 - 67.9 % [facility] Lymphocytes Relative 27.1 21.8 - 53.1 % [facility] Monocytes 9.3 5.3 - 12.2 % [facility] Eosinophils Relative 3.9 0.8 - 7.0 % [facility] Basophils Relative 0.7 0.2 - 1.2 % [facility] Immature Granulocytes 0.2 0.0 - 1.0 % [facility] 09/11/2024 3:00 AM EST 09/12/2024 12:14 PM EST us Quinton Snider MD LAB BLOOD ORDERABLES Final Resul t Performing Organization Address City/[facility] Co de Phone Number [facility] [address] [place] [address] * (ABNORMAL) ALT (09/11/2024 3:00 AM EST) Only the most recent of3 resultswithin the time period is included. ALT (SGPT) 8(L) 10 - 49 U/L [facility] 09/11/2024 3:00 AM EST 09/12/2024 12:13 PM EST us Quinton Snider MD LAB BLOOD ORDERABLES Final Resul t Performing Organization Address [facility] de Phone Number [facility]PS [facility] [address] [place] [address] * AST (09/11/2024 3:00 AM EST) Only the most recent of3 resultswithin the time period is included. AST (SGOT) 20 <34 U/L [facility] 09/11/2024 3:00 AM EST 09/12/2024 12:13 PM EST us Quinton Snider MD LAB BLOOD ORDERABLES Final Resul t Performing Organization Address [facility] Co de Phone Number [facility] [address] [place] [address] * (ABNORMAL) Protein, total (09/11/2024 3:00 AM EST) Only the most recent of3 resultswithin the time period is included. Total Protein 6.3(L) 6.4 - 8.9 g/dL [facility] 09/11/2024 3:00 AM EST 09/12/2024 12:13 PM EST us Quinton Snider MD LAB BLOOD ORDERABLES Final Resul t Performing Organization Address [facility] de Phone Number [facility] [address] [place] [address] * (ABNORMAL) Alkaline phosphatase (09/11/2024 3:00 AM EST) Only the most recent of3 resultswithin the time period is included. Alkaline Phosphatase 160(H) 46 - 116 U/L [facility] 09/11/2024 3:00 AM EST 09/12/2024 12:13 PM EST us Quinton Snider MD LAB BLOOD ORDERABLES Final Resul t Performing Organization Address [facility] Phone Number [facility] [address] [place] [address] * Magnesium (09/11/2024 3:00 AM EST) Only the most recent of3 resultswithin the time period is included. Magnesium 2.0 1.9 - 2.7 mg/dL [facility] 09/11/2024 3:00 AM EST 09/12/2024 12:13 PM EST us Quinton Snider MD LAB BLOOD ORDERABLES Final Resul t Performing Organization Address [facility] de Phone Number [facility] [address] [place] [address] * Lactate dehydrogenase (09/11/2024 3:00 AM EST) Only the most recent of3 resultswithin the time period is included. LDH 215 120 - 246 U/L [facility] 09/11/2024 3:00 AM EST 09/12/2024 12:13 PM EST us Quinton Snider MD LAB BLOOD ORDERABLES Final Resul t Performing Organization Address [facility] Co de Phone Number [facility] [address] [place] [address] * Glucose, random (09/11/2024 3:00 AM EST) Only the most recent of3 resultswithin the time period is included. Glucose 109 74 - 109 mg/dL [facility] 09/11/2024 3:00 AM EST 09/12/2024 12:13 PM EST us Quinton Snider MD LAB BLOOD ORDERABLES Final Resul t Performing Organization Address [facility] de Phone Number [facility] [address] [place] [address] * Ferritin (09/11/2024 3:00 AM EST) Only the most recent of3 resultswithin the time period is included. Ferritin 300 22 - 322 ng/mL [facility] 09/11/2024 3:00 AM EST 09/12/2024 12:13 PM EST us Quinton Snider MD LAB BLOOD ORDERABLES Final Resul t Performing Organization Address [facility] de Phone Number [facility] [address] [place] [address] * (ABNORMAL) Creatinine, serum (09/11/2024 3:00 AM EST) Only the most recent of4 resultswithin the time period is included. Creatinine 7.09(H) 0.70 - 1.30 mg/dL [facility] 09/11/2024 3:00 AM EST 09/12/2024 12:13 PM EST us Quinton Snider MD LAB BLOOD ORDERABLES Final Resul t Performing Organization Address [facility] de Phone Number [facility] [address] [place] [address] * Bilirubin, total (09/11/2024 3:00 AM EST) Only the most recent of3 resultswithin the time period is included. Total Bilirubin 0.3 0.3 - 1.2 mg/dL [facility] 09/11/2024 3:00 AM EST 09/12/2024 12:13 PM EST us Quinton Snider MD LAB BLOOD ORDERABLES Final Resul t Performing Organization Address [facility] Co de Phone Number [facility] [address] [place] [address] * Electrolyte panel (09/11/2024 3:00 AM EST) Only the most recent of3 resultswithin the time period is included. Sodium 139 136 - 145 mEq/L [facility] Potassium 4.7 3.4 - 5.0 mEq/L [facility] Chloride 105 98 - 107 mEq/L [facility] Bicarbonate (CO2) 25 21 - 31 mEq/L [facility] Anion Gap 9 3 - 14 mEq/L [facility] 09/11/2024 3:00 AM EST 09/12/2024 12:13 PM EST us Quinton Snider MD LAB BLOOD ORDERABLES Final Resul t Performing Organization Address [facility] de Phone Number [facility] [address] [place] [address] * (ABNORMAL) Hemoglobin (09/04/2024 3:00 AM EST) Only the most recent of5 resultswithin the time period is included. Hgb 10.6(L) 13.7 - 17.5 g/dL [facility] Hemoglobin x 3 31.8(L) 41.1 - 52.5 g/dL [facility] 09/04/2024 3:00 AM EST 09/05/2024 12:16 PM EST us Quinton Snider MD LAB BLOOD ORDERABLES Final Resul t Performing Organization Address [facility] Co de Phone Number [facility] [address] [place] [address] * (ABNORMAL) Hemoglobin and hematocrit (08/28/2024 3:00 AM EST) Only the most recent of3 resultswithin the time period is included. Hgb 7.7(L) 13.7 - 17.5 g/dL [facility] Comment: ALERT: Result verified by repeat analysis with no evidence of clotting detected. Consider other preanalytical factors such as sample dilution/contamination as a possible cause. Clinical correlation with redraw recommended if not consistent with patient history. Hematocrit 25.3(L) 40.1 - 51.0 % [facility] Hemoglobin x 3 23.1(L) 41.1 - 52.5 g/dL [facility] 08/28/2024 3:00 AM EST 08/29/2024 12:34 PM EST us Quinton Snider MD LAB BLOOD ORDERABLES Final Resul t Performing Organization Address [facility] de Phone Number [facility] [address] [place] [address] * Confirmation Test HCV (07/17/2024 3:00 AM EST) Only the most recent of2 resultswithin the time period is included. Hep C Ab Confirmation Not needed [facility] 07/17/2024 3:00 AM EST 07/21/2024 2:06 PM EST us Quinton Snider MD LAB BLOOD ORDERABLES Final Resul t Performing Organization Address [facility] de Phone Number [facility] [address] [place] [address] * Collection Date (07/17/2024 3:00 AM EST) Collection Date See Comment [facility] Comment: Patient sample received may exceed specimen stability, based on the collection date electronically provided. ??When reviewing patient results, verify collection information and consider specimen stability before acting on any critical or panic results. 07/17/2024 3:00 AM EST us Quinton Snider MD LAB [id number] ICITED RESULTS Final Result Performing Organization Address [facility] de Phone Number [facility] [address] [place] [address] * HEPATITIS C ABS W/REFLEX RNA DETECTR (07/17/2024 3:00 AM EST) Only the most recent of2 resultswithin the time period is included. Hep C Virus Ab Non-Reacti ve Non-Reacti ve [facility] 07/17/2024 3:00 AM EST 07/21/2024 2:06 PM EST us Quinton Snider MD LAB [id number] ICITED RESULTS Final Result Performing Organization Address City/[facility]/ZIP Co de Phone Number [facility] [address] [place] [address] * Aluminum level (07/17/2024 3:00 AM EST) Pathologist [facility] Aluminum 4 1 - 20 ug/L [facility] 07/17/2024 3:00 AM EST 07/21/2024 1:59 PM EST us Quinton Snider MD LAB BLOOD ORDERABLES Final Resul t Performing Organization Address [facility] Co de Phone Number [facility] [address] [place] [address] * (ABNORMAL) Hepatitis B Surface Antibody (07/17/2024 3:00 AM EST) Pathologist [facility] Hep B Surface Antibody <4(A) mIU/mL [facility] Comment: Interpretation: <10: No Immunity >=10: Probable Immunity 07/17/2024 3:00 AM EST 07/21/2024 2:06 PM EST us Quinton Snider MD LAB BLOOD ORDERABLES Final Resul t Performing Organization Address [facility] Co de Phone Number [facility] [address] [place] [address] * Uric Acid (07/17/2024 3:00 AM EST) Pathologist [facility] Uric Acid 4.7 4.4 - 7.6 mg/dL [facility] 07/17/2024 3:00 AM EST 07/21/2024 2:06 PM EST us Quinton Snider MD LAB BLOOD ORDERABLES Final Resul t Performing Organization Address [facility] de Phone Number [facility] [address] [place] [address] * PTH, Intact (07/17/2024 3:00 AM EST) PTH, Intact 206 160 - 721 pg/mL [facility] Comment: Suggested (KDIGO) ESRD maintenance range is two to nine times the upper normal limit (80.1 pg/mL) for the laboratory. 07/17/2024 3:00 AM EST 07/21/2024 2:06 PM EST us Quinton Snider MD LAB BLOOD ORDERABLES Final Resul t Performing Organization Address [facility] de Phone Number [facility] [address] [place] [address] * Hemoglobin A1c (07/17/2024 3:00 AM EST) [...] ORDERABLES Final Resul t Performing Organization Address [facility] de Phone Number [facility] [address] [place] [address] * (ABNORMAL) Lipid panel (07/17/2024 3:00 AM [...] Final Resul t [facility] [address] [place] [address] * (ABNORMAL) Phosphorus (06/26/2024 3:00 AM EST) Phosphorus, Serum 5.9(H) 2.5 - 5.0 mg/dL [facility] 06/26/2024 3:00 AM EST 06/27/2024 1:53 PM EST us Quinton Snider MD LAB BLOOD ORDERABLES Final Resul t [facility] [address] [place] [address] from Last 3 Months Insurance Care Teams Tomb Maker Helper Relationship Specialty Start Date End Date Hilton Pepe MD [address] [place] [address] [address] [place] [address] PCP - General Internal Medicine 03/23/22
--- OUTSIDE RECORDS SUMMARY | 2024-09-17 14:10 | XMS_ITS | Encounter Summary ---
Author Organization [facility] Address [address] [address] Phone Care Team Providers Care Certified Teacher Assistant Name Role Phone Hilton Pepe MD Primary Care Provider [phone] Encounter Details Date Type Department Care Team (Late st Contact Info) Description 09/02/2024 Treatment [facility] [address] [address] Yossi Snider MD [address] [address] Social History Tobacco Use Types [...] Dialysis Note - Yossi Snider MD - 09/02/2024 12:00 AM EST Patient: Woody Alfredo : 1955 Note Type: Dialysis Rounds-Basic Service Date: 09/02/2024 This patient was personally seen for a basic visit as part of routine monthly dialysis care for end stage renal disease. Attending Sand Caster Apprentice: YOSSI SNIDER MD Dialysis Location: [facility] Schedule: Shift: 1 HOME MEDICATIONS Current [facility] Outpatient Medications aspirin EC tablet Take [...] Known Allergies ADEQUACY ASSESSMENT Kt/V, Natural Log 1.21 (08/21/24) 1.11 (08/14/24) 1.29 (07/17/24) UREA REDUCTION RATIO (%) 66 (08/21/24) 62 (08/14/24) 67 (07/17/24) BUN 62 (08/21/24) 42 (08/14/24) 42 (07/17/24) BUN Post Dialysis 21 (08/21/24) 16 (08/14/24) 14 (07/17/24) Creatinine 6.96 (08/14/24) 6.39 (07/17/24) 7.30 (07/03/24) Bicarbonate (CO2) 23 (08/14/24) 23 (07/17/24) 22 (06/12/24) Sodium 143 (08/14/24) 141 (07/17/24) 138 (06/12/24) ANEMIA ASSESSMENT Hgb 7.7 (08/28/24) 13.3 (08/14/24) 13.5 (08/07/24) Iron Saturation (TSat) 51 (08/14/24) 28 (07/17/24) [...] (07/17/24) Signed by: YOSSI SNIDER MD on 09/02/2024 at 08:41:27 AM documented in this encounter Plan of Treatment Not on file documented as of this encounter Visit Diagnoses Not on filedocumented in this encounter Care Teams Certified Teacher Assistant Relationship Specialty Start Date End Date Hilton Pepe MD [id number] [place], [place] PCP - General Internal Medicine 03/23/22 documented as of this encounter
--- OUTSIDE RECORDS SUMMARY | 2024-09-17 14:10 | XMS_ITS ---
Author Organization Hilton Pepe MD Address [address] [place], [place] [id number] Care Team Providers Care Windows Vmware Administrator Name Role Phone Hilton Pepe Primary Care Provider Allergies No Known Allergies REASON FOR VISIT left second toe infection x 2 days yesterday was pink, today is red Medications Medication SIG (Take, Route, Frequency, Duration) Notes Start Date End Date Status Torsemide 10 MG take 1 tablet by joseph th every day as directed Orally Once a day for 90 days Not-Taking Magnesium Oxide 400 MG 1 tablet as neede d Orally Once a day for 90 days 08/17/2022 Not-Taking Benzonatate 100 MG 1 capsule as needed Orally Three times a day for 10 days 07/18/2022 Not-Taking Molnupiravir 200 MG 4 capsules Orally ev yazan 12 hrs for 5 day(s) 01/25/2024 Not-Taking metFORMIN HCl 500 MG TAKE 1 TABLET BY MO UT TWICE DAILY WITH A MEAL Orally twice aday for 90 days Not-Taking Metoprolol Succinate ER 25 MG 1 tablet Orally Once a day for 30 days 08/28/2024 Active Famotidine 20 MG TAKE 1 TABLET BY JOSEPH TH DAILY AT BEDTIME NEEDED for 30 Active Atorvastatin Calcium 80 MG TAKE 1 TABLET BY MOUTH EVERY DAY for 90 Active amLODIPine Besylate 5 MG TAKE 1 TABLET B Y MOUTH EVERY DAY Not-Taking Metoprolol Succinate ER 200 MG 1 tablet Orally Once a day Not-Taking Metoprolol Succinate ER 100 MG 1 tablet Orally Once a day for 30 days 05/01/2024 Active Clopidogrel Bisulfate 75 MG take 1 tablet by mouth every day Orally Once a day for 90 days Active Tamsulosin HCl 0.4 MG TAKE 1 CAPSULE BY MOUTH EVERY DAY for 90 Active OneTouch FinePoint Lancets - use to test blood sugar invitro DX e11.9 three times a day for 30 days 12/11/2019 Active FreeStyle Lite Test - as directed In Vit ro 3 times a day for 90 days 11/30/2022 Active levoFLOXacin 500 MG 1 tablet Orally Once a day for 10 days 09/05/2024 Active Finasteride 5 MG 1 tablet Orally Once a day for 30 day(s) Active Aspirin 81 81 MG 1 tablet Orally Once a day for 30 day(s) Active OneTouch Ultra - use to test blood ochoa gar invitro DxE11.9 three times a day for 30 days 12/11/2019 Active Vital Signs Blood pressure systolic 92 mm Hg 09/05/19 25 Blood pressure diastolic 58 mm Hg 025 Height 72 in 09/05/2024 Weight 204 lbs 09/05/2024 BMI 27.66 kg/m2 09/05/2024 Encounters Encounter Location Date Provider Diagnosis Hilton Pepe MD [address] [place] [address] [place] [phone] 09/05/2024 Hilton Pepe Toe infection L08.9 ; Type 2 diabetes mellitus without complications E11.9 and Essential hypertension I10 Assessments Encounter Date Diagnosis (ICD Code) Assessment Notes Treatment Notes Treatment Clinical Notes Section Notes 09/05/2024 Toe infection (ICD-10 - L08.9) 09/05/2024 Type 2 diabetes mellitus without complications (ICD-10 - E11.9) doing well, will contnue current regiment 09/05/2024 Essential hypertension (ICD-10 - I10) still running low, will continue to monitor Plan Of Treatment Medication Medication Name Sig Start Date Stop Date Notes levoFLOXacin 500 MG 1 tablet Orally Once a day for 10 days 09/05/2024 Treatment Notes Assessment Notes Type 2 diabetes mellitus wit hout complications doing well, will contnue current regiment Essential hypertension still running low , will continue to monitor Next Appt Details Follow Up: 1 Week, Reason: Provider Name:Hilton marc, 09/29/2024 11:00:00 AM, [address] [place] [address], [address], [place], [place], [phone], Provider Name:Hilton marc, 03/23/2025 07:15:00 AM, [address], [address], [place], [place], [phone], Provider Name:Hilton Noyola ier, 03/30/2025 10:30:00 AM, [address], [address], [place], [phone], Provider Name:Hilton Noyola ier, 08/31/2025 11:00:00 AM, [address], [address], [place], [place], [phone], Progress Notes * Woody ALFREDO SDOB:1955 ( 69 yo M)Acc No.[id number]:09/05/2024 Progress Notes Patient:?OSCARWoody BURNS S Provider:?Hilton Pepe MD :1955???Age:69 Y???Sex:Male Moncho e:09/05/2024 Address:[address] [place], [place] [id number] Subjective: * Chief Complaints: * ???Left second toe infection x 2 days yesterday was pink, today is red * HPI: ???Symptom(s):?patient is a 69 yo male here for check of toe, toe started to get pink yesterday and today is red. * ROS:?General/Constitutional:?Denies?Chills.?Denies?Fatigue.?Denies?Fever.?Denies?Headache.?ENT:?Denies?Sore throat.?Respiratory:?Denies?Cough.?Denies?Shortness of breath at rest.?Denies?Shortness of breath with exertion.?Gastrointestinal:?Denies?Diarrhea.?Denies?Nausea.? * Medical History:? * Surgical History:? * Hospitalization/Major Diagno stic Procedure:? * Medications:?TakingFinasteri de 5 MG Tablet 1 tablet Orally Once a day Aspirin 81 81 MG Tablet Delayed Release 1 tablet Orally Once a day OneTouch Ultra - Strip use to test blood sugar invitro DxE11.9 three times a day OneTouch FinePoint Lancets - Miscellaneous use to test blood sugar invitro DX e11.9 three times a day FreeStyle Lite Test - Strip as directed In Vitro 3 times a day Clopidogrel Bisulfate 75 MG Tablet take 1 tablet by mouth every day Orally Once a day Tamsulosin HCl 0.4 MG Capsule TAKE 1 CAPSULE BY MOUTH EVERY DAY Metoprolol Succinate ER 100 MG Tablet Extended Release 24 Hour 1 tablet Orally Once a day Atorvastatin Calcium 80 MG Tablet TAKE 1 TABLET BY MOUTH EVERY DAY Metoprolol Succinate ER 25 MG Tablet Extended Release 24 Hour 1 tablet Orally Once a day Famotidine 20 MG Tablet TAKE 1 TABLET BY MOUTH DAILY AT BEDTIME NEEDED Taking Finasteride 5 MG Tablet 1 tablet Orally Once a day Taking Aspirin 81 81 MG Tablet Delayed Release 1 tablet Orally Once a day Taking OneTouch Ultra - Strip use to test blood sugar invitro DxE11.9 three times a day Taking OneTouch FinePoint Lancets - Miscellaneous use to test blood sugar invitro DX e11.9 three times a day Taking FreeStyle Lite Test - Strip as directed In Vitro 3 times a day Taking Clopidogrel Bisulfate 75 MG Tablet take 1 tablet by mouth every day Orally Once a day Taking Tamsulosin HCl 0.4 MG Capsule TAKE 1 CAPSULE BY MOUTH EVERY DAY Taking Metoprolol Succinate ER 100 MG Tablet Extended Release 24 Hour 1 tablet Orally Once a day Taking Atorvastatin Calcium 80 MG Tablet TAKE 1 TABLET BY MOUTH EVERY DAY Taking Metoprolol Succinate ER 25 MG Tablet Extended Release 24 Hour 1 tablet Orally Once a day Taking Famotidine 20 MG Tablet TAKE 1 TABLET BY MOUTH DAILY AT BEDTIME NEEDED Not-Taking/PRNMetoprolol Succinate ER 200 MG Tablet Extended Release 24 Hour 1 tablet Orally Once a day amLODIPine Besylate 5 MG Tablet TAKE 1 TABLET BY MOUTH EVERY DAY Torsemide 10 MG Tablet take 1 tablet by mouth every day as directed Orally Once a day Molnupiravir 200 MG Capsule 4 capsules Orally every 12 hrs metFORMIN HCl 500 MG Tablet TAKE 1 TABLET BY MOUTH TWICE DAILY WITH A MEAL Orally twice aday Magnesium Oxide 400 MG Tablet 1 tablet as needed Orally Once a day Benzonatate 100 MG Capsule 1 capsule as needed Orally Three times a day Medication List reviewed and reconciled with the patientNot-Taking/PRN Metoprolol Succinate ER 200 MG Tablet Extended Release 24 Hour 1 tablet Orally Once a day Not-Taking/PRN amLODIPine Besylate 5 MG Tablet TAKE 1 TABLET BY MOUTH EVERY DAY Not-Taking/PRN Torsemide 10 MG Tablet take 1 tablet by mouth every day as directed Orally Once a day Not-Taking/PRN Molnupiravir 200 MG Capsule 4 capsules Orally every 12 hrs Not-Taking/PRN metFORMIN HCl 500 MG Tablet TAKE 1 TABLET BY MOUTH TWICE DAILY WITH A MEAL Orally twice aday Not-Taking/PRN Magnesium Oxide 400 MG Tablet 1 tablet as needed Orally Once a day Not-Taking/PRN Benzonatate 100 MG Capsule 1 capsule as needed Orally Three times a day Medication List reviewed and reconciled with the patient * Allergies:?N.K.D.A.yes[Aller gies Verified] Objective: * Vitals:?Ht: 72, Wt: 204, BMI :27.66, BP:92/58, Wt-k.53. * Examination: ???General Examination: ?GENERAL APPEARANCE:?well developed, well nourished, alert, well hydrated, in no distress.?SKIN:?good turgor.?HEART:?regular rate and rhythm, no murmurs, rubs, gallops.?LUNGS:?no wheezes, rales, rhonchi, good air movement, clear to auscultation bilaterally.?EXTREMITIES:?abnormal with left 2nd toe with swelling and redness.? Assessment: * Assessment: 1.?Toe infection - L08.9 (Pr imary)???2.?Type 2 diabetes mellitus without complications - E11.9???3.?Essential hypertension - I10??? Plan: * Treatment: 2.?Type 2 diabetes mellitus without complications? Notes: doing well, will contnue current regiment?? 3.?Essential hypertension? Notes: still running low, will continue to monitor?? * Procedure Codes:? * Follow Up:?1 Week * * Sign off status: Completed true * Provider:?Hilton Pepe MD Date:?0 09/05/2024 Generated for Helena burt/Jc/Rambo on:?09/17/2024 02:10 PM EDT History and Physical Notes * HPI (History of Present Illness) Category Sub-Category Detail Notes Category Not es Symptom(s) patient is a 69 yo male here for check of toe, toe started to get pink yesterday and today is red. Examination Category Sub-Category Detail Notes Category Not es General Examination GENERAL APPEARANCE: well dev eloped, well nourished, alert, well hydrated, in no distress HEART: regular rate and rhy thm, no murmurs, rubs, gallops LUNGS: no wheezes, rales, r honchi, good air movement, clear to auscultation bilaterally SKIN: good turgor EXTREMITIES: abnormal with left 2 nd toe with swelling and redness
--- OUTSIDE RECORDS SUMMARY | 2024-09-17 14:10 | XMS_ITS | Encounter Summary ---
Author Organization [facility] Address [address] [facility] [address] [place] [address] Phone Care Team Providers Care Manager Portable Name Role Phone Hilton Pepe MD Primary Care Provider Encounter Details Date Type Department Care Team (Late st Contact Info) Description 03/28/2022 Office Communication [facility] [address] [facility] [address] [place] [address] Daria Moore Social History Tobacco [...] on filedocumented in this encounter Care Teams Manager Portable Relationship Specialty Start Date End Date Hilton Pepe MD [address] [place] [address] PCP - General Internal Medicine 03/23/22 documented as of this encounter
--- OUTSIDE RECORDS SUMMARY | 2024-09-17 14:10 | XMS_ITS | Encounter Summary ---
Author Organization [facility] Address [address] [address] Phone Care Team Providers Care Lining Cleaner Name Role Phone Hilton Pepe MD Primary Care Provider Encounter Details Date Type Department Care Team (Late st Contact Info) Description 09/09/2024 Treatment [facility] [address] [phone] Yossi Snider MD [address] [address] End stage renal disease; Dependence on renal dialysis Social History Tobacco Use Types Packs/Day Years [...] Dialysis Note - Yossi Snider MD - 09/09/2024 12:00 AM EST Patient: Woody Alfredo : 1955 Note Type: Dialysis Rounds-Comp Service Date: 09/09/2024 This patient was personally seen for a complete visit as part of routine monthly dialysis care for end stage renal disease. Attending Show Worker: YOSSI SNIDER MD Dialysis Location: [facility] Schedule: Shift: 1 OVERVIEW Patient is stable. HOME MEDICATIONS Current [facility] Outpatient Medications aspirin EC tablet [...] time each day Start Date: 01/04/2023 Current [facility] Allergies Allergen: No Known Allergies BP AND FLUID ASSESSMENT Acceptable blood pressure. ADEQUACY ASSESSMENT Target met. Prescription compliance acceptable. Continue with greater than 3x more frequent dialysis prescription. Kt/V, Natural Log 1.21 (08/21/24) 1.11 (08/14/24) 1.29 (07/17/24) UREA REDUCTION RATIO (%) 66 (08/21/24) 62 (08/14/24) 67 (07/17/24) BUN 62 (08/21/24) 42 (08/14/24) 42 (07/17/24) BUN Post Dialysis 21 (08/21/24) 16 (08/14/24) 14 (07/17/24) Creatinine 6.96 (08/14/24) 6.39 (07/17/24) 7.30 (07/03/24) Bicarbonate (CO2) 23 (08/14/24) 23 (07/17/24) 22 (06/12/24) Sodium 143 (08/14/24) 141 (07/17/24) 138 (06/12/24) ACCESS ASSESSMENT Vascular access examined. ANEMIA ASSESSMENT WHITNEY adjusted per protocol. Iron adjusted per protocol. Hgb 10.6 (09/04/24) 10.3 (09/02/24) 7.7 (08/28/24) Iron Saturation (TSat) 51 (08/14/24) 28 (07/17/24) 37 (06/12/24) Ferritin 190 (08/14/24) 176 (07/17/24) 318 (06/12/24) Iron 100 (08/14/24) 58 (07/17/24) 83 (06/12/24) TIBC 195 (08/14/24) 209 (07/17/24) 225 (06/12/24) MCV 97.4 (08/14/24) 100.3 (06/12/24) 99.6 (05/15/24) Platelets 124 (08/14/24) 135 (06/12/24) 102 (05/15/24) BMM ASSESSMENT Bone and mineral metabolism parameters reviewed. Calcium, Adjusted Total 8.8 08/14/24 9.2 07/17/24 9.2 06/12/24 Calcium 8.4 08/14/24 9.1 07/17/24 9.2 06/12/24 Phosphorus, Serum 5.0 08/14/24 4.3 07/17/24 5.9 06/26/24 Ca*PO4 42.0 08/14/24 39.1 07/17/24 69.0 06/12/24 PTH, Intact 206 07/17/24 466 06/12/24 438 05/15/24 Magnesium 2.0 08/14/24 2.3 07/17/24 2.1 06/12/24 Alkaline Phosphatase 161 08/14/24 136 07/17/24 158 06/12/24 Aluminum 4 07/17/24 NUTRITION ASSESSMENT Albumin not at goal. Albumin 3.5 08/14/24 3.9 07/17/24 4.1 06/12/24 Potassium 4.7 08/14/24 5.0 07/17/24 5.1 06/12/24 Hemoglobin A1C 5.6 07/17/24 PHYSICAL EXAM Exam not performed. ADDITIONAL LABS White Blood Cells 6.0 (08/14/24) 6.6 (06/12/24) 4.8 (05/15/24) Cholesterol 95 (07/17/24) HDL 28 (07/17/24) LDL-Calc 49 (07/17/24) Triglycerides 92 (07/17/24) Hep B Surface Antibody <4 (07/17/24) NONREACTIVE (03/03/24) Uric Acid 4.7 (07/17/24) Signed by: YOSSI SNIDER MD on 09/09/2024 at 08:48:10 AM documented in this encounter Plan of Treatment Not on file documented as of this encounter Visit Diagnoses Diagnosis End stage renal disease Dependence on renal dialysis documented in this encounter Care Teams Lining Cleaner Relationship Specialty Start Date End Date Hilton Pepe MD [address] [place], [place] PCP - General Internal Medicine 03/23/22 documented as of this encounter
--- OUTSIDE RECORDS SUMMARY | 2024-09-17 14:10 | XMS_ITS ---
Author Organization Hilton Pepe MD Address [address] [place], [place] [id number] Care Team Providers Care Burrer Marker Axle Name Role Phone Hilton Pepe Primary Care Provider [phone] Allergies No Known Allergies REASON FOR VISIT 6 MO F/U Medications Medication SIG (Take, Route, Frequency, Duration) Notes Start Date End Date Status Atorvastatin Calcium 80 MG TAKE 1 TABLET BY MOUTH EVERY DAY for 90 Active Molnupiravir 200 MG 4 capsules Orally ev yazan 12 hrs for 5 day(s) 01/25/2024 Not-Taking Magnesium Oxide 400 MG 1 tablet as neede d Orally Once a day for 90 days 08/17/2022 Not-Taking metFORMIN HCl 500 MG TAKE 1 TABLET BY MO UTH TWICE DAILY WITH A MEAL Orally twice aday for 90 days Not-Taking Benzonatate 100 MG 1 capsule as needed Orally Three times a day for 10 days 07/18/2022 Not-Taking Famotidine 20 MG 1 tablet at bedtime as needed Orally Once a day for 30 day(s) 03/13/2024 Not-Taking amLODIPine Besylate 5 MG TAKE 1 TABLET B Y MOUTH EVERY DAY Not-Taking Metoprolol Succinate ER 200 MG 1 tablet Orally Once a day Not-Taking Metoprolol Succinate ER 25 MG 1 tablet Orally Once a day for 30 days 08/28/2024 Active Torsemide 10 MG take 1 tablet by bony th every day as directed Orally Once a day for 90 days Not-Taking FreeStyle Lite Test - as directed In Vit ro 3 times a day for 90 days 11/30/2022 Active OneTouch FinePoint Lancets - use to test blood sugar invitro DX e11.9 three times a day for 30 days 12/11/2019 Active Tamsulosin HCl 0.4 MG TAKE 1 CAPSULE BY MOUTH EVERY DAY for 90 Active Clopidogrel Bisulfate 75 MG take 1 tablet by mouth every day Orally Once a day for 90 days Active Metoprolol Succinate ER 100 MG 1 tablet Orally Once a day for 30 days 05/01/2024 Active Finasteride 5 MG 1 tablet Orally Once a day for 30 day(s) Active OneTouch Ultra - use to test blood ochoa gar invitro DxE11.9 three times a day for 30 days 12/11/2019 Active Aspirin 81 81 MG 1 tablet Orally Once a day for 30 day(s) Active Social History Tobacco Use: Social History Observation Description Date Details (start date - stop date) Never Smoker NA - NA Tobacco Use/Smoking Question Answer Notes Patient is a nonsmoker Additional Findings: Tobacco Non-User Cu rrent non-smoker, currently using no form of tobacco Alcohol Screen Question Answer Notes Did you have a drink containing alcohol in the p ast year? 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 Plan Of Treatment Medication Medication Name Sig Start Date Stop Date Notes Metoprolol Succinate ER 25 MG 1 tablet O rally Once a day for 30 days 08/28/2024 Treatment Notes Assessment Notes Stage 4 chronic kidney disease undergoin g dialysis treatment Hypotension due to drugs patient verbali zed understanding of medication and directions for use. Next Appt Details Follow Up: 4 Weeks, Reason: Provider Name:Hilton marc, 09/29/2024 11:00:00 AM, [address] [place] [address], Suite [facility], [place], [place], [phone], Provider Name:Hilton marc, 03/23/2025 07:15:00 AM, [address] [place] [address], [place] [address], [place], [place], [phone], Provider Name:Hilton marc, 03/30/2025 10:30:00 AM, [address] [place] [address], [place] [address], [place], [place], [phone], Provider Name:Hilton marc, 08/31/2025 11:00:00 AM, [address] [place] [address], [address], [phone], Progress Notes * Woody ALFREDO SDOB:1955 ( 69 yo M)Acc No.[id number]:08/28/2024 Progress Note Patient:?Woody ALFREDO S Provider:?Hilton Pepe MD :1955???Age:69 Y???Sex:Male Moncho e:08/28/2024 Address:[address] [place], [place] [id number] Subjective: * Chief Complaints: * ???6 MO F/U * HPI: ???Depression Screening:?PHQ-9?Little interest or pleasure in doing things?Not at all,?Feeling down, depressed, or hopeless?Not at all,?Trouble falling or staying asleep, or sleeping too much?Not at all,?Feeling tired or having little energy?Not at all,?Poor appetite or overeating?Not at all,?Feeling bad about yourself or that you are a failure, or have let yourself or your family down?Not at all,?Trouble concentrating on things, such as reading the newspaper or watching television?Not at all,?Moving or speaking so slowly that other people could have noticed; or the opposite, being so fidgety or restless that you have been moving around a lot more than usual?Not at all,?Thoughts that you would be better off or of hurting yourself in some way?Not at all,?Total Score?0.?patient is? 69 yo male fell after having 104 fever and had ot change his implant. had osmar put in dialysis/ is interested in kidney transplant. ???Annual Wellness Visit:?c/o of?Annual Wellness Visit.?Medical / Social History Reviewed?The following items were reviewed and updated during today's visit?Past Medical History, [place] of Care, Surgical/Hospitalization History, Current medications including OTC and supplements, Family History, Tobacco use, Alcohol use, Illicit drug use.?Home Safety?Throw rugs??No,?Grab bars??Yes,?Raised toilet seats??No,?Working smoke detectors??Yes,?Working carbon monoxide detectors??Yes.?Activities of Daily Living (ADLs)?Difficulty bathing or showering??No,?Difficulty dressing??No,?Difficulty using the toilet??No,?Difficulty getting in and out of bed??No,?Difficulty walking??No,?Receives help from another person with any of the above?No.?End-of-Life Planning?End of Life Planning?Not needed.?Answers for HPI/ROS submitted by the patient?Change in Weight?No,?Change in hearing?No.? HRA filled out by the patient, reviewed by Provider and scanned. ???Communication Needs:?Communication Needs?Does the patient have a hearing impairment?No,?Does the patient have a vision impairment??Yes,?If yes, what is the vision impairment??Glasses,?Does the patient have a cognition impairment??No.?Fall Risk:?History?Have you had any falls with injury in the past year??No,?Have you had two or more falls in the past year??No.?SDOH Questions:?SDOH Questions?In the past year have you been worried about losing housing??No,?In the past year have you or any family members you live with been unable to get any of the following when it was really needed? Check all that apply:?None.? * ROS:?ENT:?Patient denies?decreased sense of smell, any loss of taste, sore throat.?Respiratory:?Patient denies?shortness of breath at rest, shortness of breath with exertion.?Cardiovascular:?Patient denies?chest pain with exertion, chest pain at rest.?Musculoskeletal:?Patient denies?muscle aches.?Peripheral Vascular:?Patient denies?red and blue toes.? * Medical History:? * Surgical History:? * Hospitalization/Major Diagno stic Procedure:? * Family History:?Father: dece ased 21 yrs.?Mother: 88 yrs, diagnosed with Hypertension.? Father-MVA m,other alzheimer's, Denies mental health/substance abuse family history, Denies mental health/substance abuse family history, No pertinent family medical history. * Social History:?Tobacco Use:?Tobacco Use/Smoking?Patient is a?nonsmoker,?Additional Findings: Tobacco Non-User?Current non-smoker, currently using no form of tobacco.?Drugs/Alcohol:?Alcohol Screen?Did you have a drink containing alcohol in the past year??No,?Points?0,?Interpretation?Negative.?Miscellaneous:?Caffeine: yes, frequency:, 1-2 cups per day. Children: no. Community involvements: no. Exercise: no. Housing: owning. Living with: spouse. Marital status: . Occupation: weeks/months/years, retired. Pets: cats: dogs: 2 dogs. Travel outside of the [place]: no. * Medications:?TakingFinasteri de 5 MG Tablet 1 [...] 1 TABLET BY MOUTH EVERY DAY Taking Finasteride 5 [...] TAKE 1 TABLET BY MOUTH EVERY DAY Not-Taking/PRNFamotidine 20 MG Tablet 1 tablet at bedtime as needed Orally Once a day Metoprolol Succinate ER 200 MG Tablet Extended [...] as needed Orally Three times a day Not-Taking/PRN Famotidine 20 MG Tablet 1 tablet at bedtime as needed Orally Once a day Not-Taking/PRN Metoprolol Succinate ER 200 MG Tablet Extended [...] as needed Orally Three times a day * Allergies:?N.K.D.A.yes[Aller gies Verified] Objective: * Vitals:?Ht: 72, Wt: 201, BMI :27.26, BP:90/60, Wt-k.17. weight is up 11 pounds since 05-15-24. * Examination: ???AWV: ?Balance?.?Hearing?.?EKG? Not clinically necessary.?Written plan?Completed.?General Examination: ?GENERAL APPEARANCE:?alert, well hydrated, in no distress , male.?HEAD:?normocephalic.?SKIN:?warm and dry.?HEART:?regular rate and rhythm , no murmurs, rubs, gallops.?LUNGS:?good air movement , no wheezes, rales, rhonchi , clear to auscultation bilaterally.? Assessment: * Assessment: 1.?Essential hypertension - I10???2.?Stage 4 chronic kidney disease - N18.4???3.?History of coronary artery stent placement - Z95.5???4.?Hypotension due to drugs - I95.2??? Plan: * Treatment: 2.?Hypotension due to drugs? Start Metoprolol Succinate ER Tablet Extended Release 24 Hour, 25 MG, 1 tablet, Orally, Once a day, 30 days, 30, Refills 3.?? Notes: patient verbalized understanding of medication and directions for use. ?? * Procedure Codes:?G0439 DONTE Arreguin WELLNESS VST; PPS SUBSQT VST * Preventive Medicine:? ??Counseling:?Care goal follow-up plan:?Counseling for abnormal BMI provided?Yes,?Above Normal BMI Follow-up?Dietary management education, guidance, and counseling, Dietary needs education, Giving encouragement to exercise.?Exercise?.?Communication to patient:?Counseling for nutrition provided?Yes,?Counseling for physical activity provided?Yes.?Social:?diet:?Discussed the importance of eating a nutritious healthy food on a regular basis,?exercise:?Discussed the benefits of any exercise for overall health and well-being,?alcohol and drugs:?Discussed the dangers of excessive alcohol intake.? ??SCREENING:?Colonoscopy?Next screening is scheduled.?Mammogram?Annual Mammogram recommended pt will self schedule.? ??Immunizations:?Influenza?Have you had a flu shot since the most recent March 09??Yes.?Covid?patient vaccincated.? ??Screening/Special Tests:?Colonoscopy?.?Mammogram?.? * Follow Up:?4 Weeks * * Sign off status: Completed true * Provider:?Hilton Pepe MD Date:?0 08/28/2024 Generated for Helena burt/Jc/Rambo on:?09/17/2024 02:10 PM EDT History and Physical Notes * HPI (History of Present Illness) Category Sub-Category Detail Notes Category Not es Depression Screening PHQ-9 Little inte rest or pleasure in doing things: Not at all patient is 69 yo male fell after having 104 fever and had ot change his implant. had christautla put in dialysis/ is interested in kidney transplant Feeling down, depressed, or hopeless: No t at all Trouble falling or staying asleep, or sl eeping too much: Not at all Feeling tired or having little energy: N ot at all Poor appetite or overeating: Not at all Feeling bad about yourself o r that you are a failure, or have let yourself or your family down: Not at all Trouble concentrating on thi ngs, such as reading the newspaper or watching television: Not at all Moving or speaking so slowly that other people could have noticed; or the opposite, being so fidgety or restless that you have been moving around a lot more than usual: Not at all Thoughts that you would be b viraj off or of hurting yourself in some way: Not at all Total Score: 0 SDOH Questions SDOH Questions In the past year have you been worried about losing housing?: No In the past year have you or any family members you live with been unable to get any of the following when it was really needed? Check all that apply:: None Fall Risk History Have you had any falls with injury i n the past year?: No Have you had two or more falls in the year?: No Communication Needs Communication Needs Does the patient have a hearing impairment: No Does the patient have a vision impairmen t?: Yes ?If yes, what is the vision impairment?: Glasses Does the patient have a cognition impair ment?: No Annual Wellness Visit of Annual Wellness Vis it HRA filled out by the patient, reviewed by Provider and scanned. Medical / Social History Reviewed The fo llowing items were reviewed and updated during today's visit: Past Medical History, [place] of Care, Surgical/Hospitalization History, Current medications including OTC and supplements, Family History, Tobacco use, Alcohol use, Illicit drug use Home Safety Throw rugs?: No Grab bars?: Yes Raised toilet seats?: No Working smoke detectors?: Yes Working carbon monoxide detectors?: Yes Activities of Daily Living (ADLs) Difficulty bat naz or showering?: No Difficulty dressing?: No Difficulty using the toilet?: No Difficulty getting in and out of bed?: N o Difficulty walking?: No Receives help from another person with a ny of the above: No End-of-Life Planning End of Life Planning: Not n eeded Answers for HPI/ROS submitted by the patient Marni ledesma in Weight: No Change in hearing: No Examination Category Sub-Category Detail Notes Category Not es General Examination GENERAL APPEARANCE: alert, w ell hydrated, in no distress , male HEAD: normocephalic HEART: regular rate and rhy thm , no murmurs, rubs, gallops LUNGS: good air movement , no wheezes, rales, rhonchi , clear to auscultation bilaterally SKIN: warm and dry AWV Balance Romberg: No . Tandem walk: No . Walk and Turn: No . Rise from sit to stand: No . Hearing Whisper test: . EKG Not clinically zully garcia Written plan Completed
--- OUTSIDE RECORDS SUMMARY | 2024-09-17 14:10 | XMS_ITS | Encounter Summary ---
Author Organization [facility] Address [address] [phone] Phone Care Team Providers Care Area Cleaner Name Role Phone Hilton Pepe MD Primary Care Provider Encounter Details Date Type Department Care Team (Late st Contact Info) Description 09/16/2024 Treatment [facility]. [address] [phone] Yossi Beck MD [address] [phone] End stage renal disease; Dependence [...] Miscellaneous Notes * Dialysis Note - Yossi Beck MD - 09/16/2024 12:00 AM EDT Patient: Woody Alfredo : 1955 Note Type: Dialysis Rounds-Basic Service Date: 09/16/2024 This patient was personally seen for a basic visit as part of routine monthly dialysis care for end stage renal disease. Attending Chief Mechanical Engineer: YOSSI BECK MD Dialysis Location: [facility] Schedule: Shift: 1 HOME MEDICATIONS Current [facility] Outpatient Medications aspirin EC tablet Take [...] each day Start Date: 01/04/2023 Current [facility] Allergies Allergen: No Known Allergies ADEQUACY ASSESSMENT Kt/V, Natural Log 1.34 (09/11/24) 1.21 (08/21/24) 1.11 (08/14/24) UREA REDUCTION RATIO (%) 70 (09/11/24) 66 (08/21/24) 62 (08/14/24) BUN 56 (09/11/24) 62 (08/21/24) 42 (08/14/24) BUN Post Dialysis 17 (09/11/24) 21 (08/21/24) 16 (08/14/24) Creatinine 7.09 (09/11/24) 6.96 (08/14/24) 6.39 (07/17/24) Bicarbonate (CO2) 25 (09/11/24) 23 (08/14/24) 23 (07/17/24) Sodium 139 (09/11/24) 143 (08/14/24) 141 (07/17/24) ANEMIA ASSESSMENT Hgb 9.6 (09/11/24) 10.6 (09/04/24) 10.3 (09/02/24) Iron Saturation (TSat) 50 (09/11/24) 51 (08/14/24) 28 (07/17/24) Ferritin 300 (09/11/24) 190 (08/14/24) 176 (07/17/24) Iron 96 (09/11/24) 100 (08/14/24) 58 (07/17/24) TIBC 193 (09/11/24) 195 (08/14/24) 209 (07/17/24) MCV 95.1 (09/11/24) 97.4 (08/14/24) 100.3 (06/12/24) Platelets 160 (09/11/24) 124 (08/14/24) 135 (06/12/24) BMM ASSESSMENT Calcium, Adjusted Total 9.3 09/11/24 8.8 08/14/24 9.2 07/17/24 Calcium 9.1 09/11/24 8.4 08/14/24 9.1 07/17/24 Phosphorus, Serum 4.0 09/11/24 5.0 08/14/24 4.3 07/17/24 Ca*PO4 36.4 09/11/24 42.0 08/14/24 39.1 07/17/24 PTH, Intact 206 07/17/24 466 06/12/24 438 05/15/24 Magnesium 2.0 09/11/24 2.0 08/14/24 2.3 07/17/24 Alkaline Phosphatase 160 09/11/24 161 08/14/24 136 07/17/24 Aluminum 4 07/17/24 NUTRITION ASSESSMENT Albumin 3.8 09/11/24 3.5 08/14/24 3.9 07/17/24 Potassium 4.7 09/11/24 4.7 08/14/24 5.0 07/17/24 Hemoglobin A1C 5.6 07/17/24 ADDITIONAL LABS White Blood Cells 5.9 (09/11/24) 6.0 (08/14/24) 6.6 (06/12/24) Cholesterol 95 (07/17/24) HDL 28 (07/17/24) LDL-Calc 49 (07/17/24) Triglycerides 92 (07/17/24) Hep B Surface Antibody <4 (07/17/24) NONREACTIVE (03/03/24) Uric Acid 4.7 (07/17/24) Signed by: YOSSI BECK MD on 09/16/2024 at 01:00:07 PM documented in this encounter Plan of Treatment Not on file documented as of this encounter Visit Diagnoses Diagnosis End stage renal disease Dependence on renal dialysis documented in this encounter Care Teams Area Cleaner Relationship Specialty Start Date End Date Hilton Pepe MD [address] [place], [place] PCP - General Internal Medicine 03/23/22 documented as of this encounter
--- OUTSIDE RECORDS SUMMARY | 2024-09-17 14:10 | XMS_ITS | Encounter Summary ---
Author Organization [facility] Facility Address [address] [place] [address] Care Team Providers Care Independent Video Producer Name Role Phone Hilton Pepe MD Primary Care Provider Encounter Details Date Type Department Care Team (Latest Contact Info) Description 03/11/2024 Treatment Yossi Snider MD [address] [phone] Social History Tobacco Use Types [...] kidney injury requiring renal replacement therapy. Attending Cloth Shrinking Machine Operator: YOSSI SNIDER MD Dialysis Location: [facility] Schedule: Shift: 1 OVERVIEW Patient is stable. HOME MEDICATIONS Medications reviewed. Current [facility] Outpatient Medications aspirin EC tablet [...] time each day Start Date: 01/04/2023 Current [facility] Allergies Allergen: No Known Allergies BP AND [...] on filedocumented in this encounter Care Teams Independent Video Producer Relationship Specialty Start Date End Date Hilton Pepe MD [address] [place] [address] [address] [place], [place] PCP - General Internal Medicine 03/23/22 documented as of this encounter
--- OUTSIDE RECORDS SUMMARY | 2024-09-17 14:10 | XMS_ITS ---
Author Organization Hilton Pepe MD Address [address] [place] [phone] Care Team Providers Care Hog Feeder Name Role Phone Hilton Pepe Primary Care Provider Allergies No Known Allergies REASON FOR VISIT 1 week toe infection Medications Medication SIG (Take, Route, Frequency, Duration) Notes Start Date End Date Status Magnesium Oxide 400 MG 1 tablet as neede d Orally Once a day for 90 days 08/17/2022 Not-Taking Benzonatate 100 MG 1 capsule as needed Orally Three times a day for 10 days 07/18/2022 Not-Taking Torsemide 10 MG take 1 tablet by joseph th every day as directed Orally Once a day for 90 days Not-Taking Molnupiravir 200 MG 4 capsules Orally ev yazan 12 hrs for 5 day(s) 01/25/2024 Not-Taking metFORMIN HCl 500 MG TAKE 1 TABLET BY MO UTH TWICE DAILY WITH A MEAL Orally twice aday for 90 days Not-Taking Metoprolol Succinate ER 25 MG 1 tablet Orally Once a day for 30 days 08/28/2024 Active Metoprolol Succinate ER 200 MG 1 tablet Orally Once a day Not-Taking amLODIPine Besylate 5 MG TAKE 1 TABLET B Y MOUTH EVERY DAY Not-Taking Famotidine 20 MG TAKE 1 TABLET BY JOSEPH TH DAILY AT BEDTIME NEEDED for 30 Active levoFLOXacin 500 MG 1 tablet Orally Once a day for 10 days 09/05/2024 Active Atorvastatin Calcium 80 MG TAKE 1 TABLET BY MOUTH EVERY DAY for 90 Active Tamsulosin HCl 0.4 MG TAKE 1 CAPSULE BY MOUTH EVERY DAY for 90 Active Metoprolol Succinate ER 100 MG 1 tablet Orally Once a day for 30 days 05/01/2024 Active Clopidogrel Bisulfate 75 MG take 1 tablet by mouth every day Orally Once a day for 90 days Active FreeStyle Lite Test - as directed In Vit ro 3 times a day for 90 days 11/30/2022 Active Aspirin 81 81 MG 1 tablet Orally Once a day for 30 day(s) Active OneTouch Ultra - use to test blood ochoa gar invitro DxE11.9 three times a day for 30 days 12/11/2019 Active Finasteride 5 MG 1 tablet Orally Once a day for 30 day(s) Active OneTouch FinePoint Lancets - use to test blood sugar invitro DX e11.9 three times a day for 30 days 12/11/2019 Active Vital Signs Blood pressure systolic 98 mm Hg 09/13/19 25 Blood pressure diastolic 64 mm Hg 025 Height 72 in 09/12/2024 Weight 203 lbs 09/12/2024 BMI 27.53 kg/m2 09/12/2024 Encounters Encounter Location Date Provider Diagnosis Hilton Pepe MD [address] [place] [phone] 09/12/2024 Hilton Pepe Toe infection L08.9 and Essential hypertension I10 Assessments Encounter Date Diagnosis (ICD Code) Assessment Notes Treatment Notes Treatment Clinical Notes Section Notes 09/12/2024 Toe infection (ICD-10 - L08.9) showing signs of improvement 09/12/2024 Essential hypertension (ICD-10 - I10) is still low and is followed by dialysis Plan Of Treatment Treatment Notes Assessment Notes Toe infection showing signs of imp rovement Essential hypertension is still low and is followed by dialysis Next Appt Details Provider Name:Hilton marc, 09/29/2024 11:00:00 AM, [address] [place] [address], [address], [phone], Provider Name:Hilton marc, 03/23/2025 07:15:00 AM, [address] [place] [address], [phone], Provider Name:Hilton marc, 03/30/2025 10:30:00 AM, [address] [place] [address], [phone], Provider Name:Hilton marc, 08/31/2025 11:00:00 AM, [address] [facility], [address], [place], [place], [phone], Progress Notes * Woody ALFREDO SDOB:1955 ( 69 yo M)Acc No.[id number]:09/12/2024 Patient:?Woody ALFREDO S Provider:?Hilton Pepe MD :1955???Age:69 Y???Sex:Male Moncho e:09/12/2024 Address:[address] [place], [place] [phone] Subjective: * Chief Complaints: * ???1. 1 week toe infection. * HPI: ???Symptom(s):? feels as though it is getting better. no drainage for a week. * ROS:?General/Constitutional:?Denies?Chills.?Denies?Fatigue.?Denies?Fever.?Denies?Headache.?ENT:?Denies?Sore throat.?Respiratory:?Denies?Cough.?Admits?Shortness of breath at rest.?Gastrointestinal:?Denies?Diarrhea.?Denies?Nausea.? * Medical History:?Colonoscopy done 07/11/[address] Alexis edmonds in 5 years (2024). * Medications:?Taking Finaster jonathan 5 MG Tablet 1 tablet Orally Once a day , Taking Aspirin 81 81 MG Tablet Delayed Release 1 tablet Orally Once a day , Taking OneTouch Ultra - Strip use to test blood sugar invitro DxE11.9 three times a day , Taking OneTouch FinePoint Lancets - Miscellaneous use to test blood sugar invitro DX e11.9 three times a day , Taking FreeStyle Lite Test - Strip as directed In Vitro 3 times a day , Taking Clopidogrel Bisulfate 75 MG Tablet take 1 tablet by mouth every day Orally Once a day , Taking Tamsulosin HCl 0.4 MG Capsule TAKE 1 CAPSULE BY MOUTH EVERY DAY , Taking Metoprolol Succinate ER 100 MG Tablet Extended Release 24 Hour 1 tablet Orally Once a day , Taking Atorvastatin Calcium 80 MG Tablet TAKE 1 TABLET BY MOUTH EVERY DAY , Taking Metoprolol Succinate ER 25 MG Tablet Extended Release 24 Hour 1 tablet Orally Once a day , Taking Famotidine 20 MG Tablet TAKE 1 TABLET BY MOUTH DAILY AT BEDTIME NEEDED , Taking levoFLOXacin 500 MG Tablet 1 tablet Orally Once a day , Not-Taking/PRN Metoprolol Succinate ER 200 MG Tablet Extended Release 24 Hour 1 tablet Orally Once a day , Not-Taking/PRN amLODIPine Besylate 5 MG Tablet TAKE 1 TABLET BY MOUTH EVERY DAY , Not-Taking/PRN Torsemide 10 MG Tablet take 1 tablet by mouth every day as directed Orally Once a day , Not-Taking/PRN Molnupiravir 200 MG Capsule 4 capsules Orally every 12 hrs , Not-Taking/PRN metFORMIN HCl 500 MG Tablet TAKE 1 TABLET BY MOUTH TWICE DAILY WITH A MEAL Orally twice aday , Not- Taking/PRN Magnesium Oxide 400 MG Tablet 1 tablet as needed Orally Once a day , Not- Taking/PRN Benzonatate 100 MG Capsule 1 capsule as needed Orally Three times a day , Medication List reviewed and reconciled with the patient * Allergies:?N.K.D.A. Objective: * Vitals:?Ht: 72, Wt: 203, BMI :27.53, BP:98/64, Wt-k.08. * Examination: ???General Examination: ?GENERAL APPEARANCE:?pleasant, well nourished, well developed, in no acute distress.?SKIN:?abnormal left second toe is red but less swollen..? Assessment: * Assessment: 1.?Toe infection - L08.9 (Pr imary)???2.?Essential hypertension - I10??? Plan: * Treatment: 2.?Essential hypertension? Notes: is still low and is followed by dialysis?? * * The named appointment provid er may or may not be the originator of this progress note, and it is not deemed complete until electronically signed by the appointment provider. Sign off status: Pending * Provider:?Hilton Pepe MD Date:?0 09/12/2024 Generated for Helena burt/Jc/eTransmitting on:?09/17/2024 02:10 PM EDT History and Physical Notes * HPI (History of Present Illness) Category Sub-Category Detail Notes Category Not es Symptom(s) feels as though it is getting better. no drainage for a week Examination Category Sub-Category Detail Notes Category Not es General Examination GENERAL APPEARANCE: pleasant , well nourished, well developed, in no acute distress SKIN: abnormal left second toe is red but less swollen.
--- OUTSIDE RECORDS SUMMARY | 2024-09-17 14:10 | XMS_ITS | Patient Health Record ---
Author Organization [facility] Address [address] [place] [phone] Care Team Providers Care Air Cargo Specialist Name Role Phone Hilton Pepe MD Primary Care Provider Nico Hernandez Jr Unavailable Reason For Referral No Information Medications Medication SIG (Take, Route, Frequency, Duration) Notes Start Date End Date Status MiraLax (colon prep) 8.3 ounce ((238) grams mixed with Gatorade or Crystal Light orally begin at 5:00 p.m. the day before the procedure for 1 day 04/24/2019 Active metFORMIN HCl 500 MG TAKE 1 TABLET BY MO UTH TWICE A DAY WITH MEALS Oral for 90 Active Atorvastatin Calcium 40 MG TAKE 1 TABLET BY MOUTH EVERY DAY Oral for 90 Active Clopidogrel Bisulfate 75 MG TAKE 1 TABLE T BY MOUTH EVERY DAY Oral for 90 Active amLODIPine Besylate 5 MG TAKE 1 TABLET B Y MOUTH EVERY DAY Oral for 90 Active Valsartan 160 MG TAKE 1 TABLET BY JOSEPH TH EVERY DAY Oral for 90 Active Immunizations Vaccine Route Administration Date Status Comme nts Influenza Unknown 04/08/2019 Administered Social History Tobacco Use: Social History Observation Description Date Details (start date - stop date) Never Smoker NA - NA Tobacco Use/Smoking Question Answer Notes Patient is a nonsmoker Alcohol Screen Question Answer Notes Did you have a drink containing alcohol in the p ast year? 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 drug (Z79.02) Active confirmed Plan Of Treatment Future Test Test Name Order Date COLONOSCOPY 04/24/2019 Insurance Providers Payer Name Payer Address Payer Phone Subscriber Number Group Number Insured Name Patient Relationship to Insured Coverage Start Date Coverage End Date [facility] [address] [facility] [phone] [id number] ARIES CHAPMAN Self - patient is the insured Medicare of [place] [employer] [address] [place] [address] [id number] ARIES CHAPMAN Self - patient is the insured Medical (General) History Medical History History ICD Code 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
--- OUTSIDE RECORDS SUMMARY | 2024-09-17 14:10 | XMS_ITS | Encounter Summary ---
Author Organization [facility] Address [address] [phone] Phone Care Team Providers Care Community Health Program Representative Name Role Phone Hilton Pepe MD Primary Care Provider [phone] Encounter Details Date Type Department Care Team (Late st Contact Info) Description 08/26/2024 Treatment [facility] [address] [phone] Yossi Snider MD [address] [phone] Social History Tobacco Use Types [...] Dialysis Note - Yossi Snider MD - 08/26/2024 12:00 AM EST Patient: Woody Alfredo : 1955 Note Type: Dialysis Rounds-Basic Service Date: 08/26/2024 This patient was personally seen for a basic visit as part of routine monthly dialysis care for end stage renal disease. Attending Coiled Tubing Supervisor: YOSSI SNIDER MD Dialysis Location: [facility] Schedule: Shift: 1 HOME MEDICATIONS Current [...] (07/17/24) Signed by: YOSSI SNIDER MD on 08/26/2024 at 09:12:04 AM documented in this encounter Plan of Treatment Not on file documented as of this encounter Visit Diagnoses Not on filedocumented in this encounter Care Teams Community Health Program Representative Relationship Specialty Start Date End Date Hilton Pepe MD [address] [place], [place] PCP - General Internal Medicine 03/23/22 documented as of this encounter
--- OUTSIDE RECORDS SUMMARY | 2024-09-17 14:10 | XMS_ITS | Encounter Summary ---
Author Organization [facility] Address [address] [phone] Phone Care Team Providers Care Ux Design Lead Name Role Phone Hilton Pepe MD Primary Care Provider Encounter Details Date Type Department Care Team (Late st Contact Info) Description 09/11/2024 Treatment [facility]. [address] [phone] Yossi Beck MD [address] [address] End stage renal disease; Dependence [...] Dialysis Note - Yossi Beck MD - 09/11/2024 12:00 AM EST Patient: Woody Alfredo : 1955 Note Type: Dialysis Rounds-Basic Service Date: 09/11/2024 This patient was personally seen for a basic visit as part of routine monthly dialysis care for end stage renal disease. Attending Contact Center Team Lead: YOSSI BECK MD Dialysis Location: [facility] Schedule: Shift: 1 HOME MEDICATIONS Current [...] 141 (07/17/24) 138 (06/12/24) ANEMIA ASSESSMENT Hgb 10.6 (09/04/24) 10.3 (09/02/24) 7.7 (08/28/24) [...] (07/17/24) Signed by: YOSSI BECK MD on 09/11/2024 at 07:40:49 AM documented in this encounter Plan of Treatment Not on file documented as of this encounter Visit Diagnoses Diagnosis End stage renal disease Dependence on renal dialysis documented in this encounter Care Teams Ux Design Lead Relationship Specialty Start Date End Date Hilton Pepe MD [address] [place], [place] PCP - General Internal Medicine 03/23/22 documented as of this encounter
--- OUTSIDE RECORDS SUMMARY | 2024-09-17 14:11 | XMS_ITS | Encounter Summary ---
Author Organization [facility] Address [address] [address] Phone Care Team Providers Care Pharmaceutical Worker Name Role Phone Hilton Pepe MD Primary Care Provider Encounter Details Date Type Department Care Team (Late st Contact Info) Description 08/19/2024 Treatment [facility] [address] [phone] Yossi Snider MD [address] [phone] Social History Tobacco Use Types [...] care for end stage renal disease. Attending Supply Chain Specialist: YOSSI SNIDER MD Dialysis Location: [facility] Schedule: Shift: 1 HOME MEDICATIONS Current [...] on filedocumented in this encounter Care Teams Pharmaceutical Worker Relationship Specialty Start Date End Date Hilton Pepe MD [address] [place], [place] PCP - General Internal Medicine 03/23/22 documented as of this encounter
== END 2024-09-17 12:53 | disposition home or self-care (01) ==
LOC: HO.HCS 12:09
PROVIDERS: PCP Internal Medicine; Visit Provider Internal Medicine
DX: I25.10 Atherosclerotic heart disease of native coronary artery without angina pectoris (principal); I25.5 Ischemic cardiomyopathy; N18.6 End stage renal disease; Z99.2 Dependence on renal dialysis
CPT/HCPCS: 99214; G2211

== ENCOUNTER → 2024-09-17 12:08 | Outpatient (BNVA) | payer MEDICARE, SELFPAY | PROVIDERS: PCP Internal Medicine; Visit Provider Internal Medicine | DX: I25.10 Atherosclerotic heart disease of native coronary artery without angina pectoris (principal); I25.5 Ischemic cardiomyopathy; N18.6 End stage renal disease; Z99.2 Dependence on renal dialysis | CPT/HCPCS: 99212 ==

== ENCOUNTER → 2024-10-08 13:34 | Outpatient (REF) | payer MEDICARE, SELFPAY ==
--- NOTE | 2024-10-08 13:37 | CA_ITS ---
Transthoracic Echocardiogram Patient (Last, First, Middle): Woody Alfredo S Gender: Male Date of : 1955 Age: 69 Procedure Date: 10/08/2024 Procedure Type: Transthoracic Echocardiogram Location: OP Height: 180.34 cm Weight: 42.64 kg BSA: 1.53 m2 Heart Rate: bpm BP: 110 / 70 mmHg Customer Experience Analyst: Referring MD: Robert Perry MD Symptoms: I25.10 - Atherosclerotic heart disease of [place] coronary artery without... Study Quality: Adequate w Contrast ECG Rhythm: Sinus Conclusions: - The left ventricular systolic function is severely decreased. The calculated ejection fraction is 29% by biplane method. - Wall motion abnormalities related to underlying coronary disease. - There is moderate mitral annular calcification. - Severe pulmonary hypertension is present. Findings Procedure Information Contrast agent, definity, is being given per protocol without apparent complications. Left Ventricle Moderately increased left ventricular cavity size. There is normal left ventricular wall thickness. The left ventricular systolic function is severely decreased. The calculated ejection fraction is 29% by biplane method. Diastolic function is indeterminate on the basis of available data. Wall Motion Rest Echo Findings The apical inferior and mid inferior segments are hypokinetic. The inferoseptal wall, the apex, basal inferior, mid anterior, apical septum, mid anteroseptal, and mid inferolateral segments are akinetic. Right Ventricle Mildly increased right ventricular cavity size. There is normal right ventricular systolic function. Atria The left atrium is severely dilated. The right atrium is normal in size. Aortic Valve There is a normal trileaflet aortic valve. There is no aortic valve stenosis. There is no aortic valve regurgitation. Mitral Valve There is mild anterior mitral leaflet thickening. There is moderate mitral annular calcification. There is mild mitral valve regurgitation. There is no mitral valve stenosis. Pulmonic Valve The pulmonic valve is likely normal. Tricuspid Valve Normal tricuspid valve structure. There is mild tricuspid valve regurgitation. The right ventricular systolic pressure is 68 mmHg. Severe pulmonary hypertension is present. Great Vessels The aorta was not well visualized. The sinuses of valsalva is normal in size. Venous The inferior vena cava is normal in size and collapses greater than 50% with inspiration. Pericardium/Pleural There is no evidence of pericardial effusion. Prior Study Comparison No significant change compared to prior study dated: 04/18/2024. Measurements 2D Linear Measurements IVSd: 0.88 0.6-0.9/0.6-1.0 cm LVIDd: 6.50 3.9-5.3/4.2-5.9 cm LVIDd Index: 4.25 2.4-3.2/2.2-3.1 cm/m2 LVIDs: 5.24 2.0-3.6 cm LVPWd: 0.73 0.7-1.1 cm Ao Root: 3.60 2.1-3.5 cm LA Diam: 4.80 2.7-3.8/3.0-4.0 cm LAIDs Index: 3.14 1.5-2.3 cm/m2 LV Mass: 269.34 67-162/88-224 g LV Mass Index: 176.04 43-95/49-115 g/m2 LVOT Diam: 2.40 3.0+(-)1.3 cm 2D Systolic Function EF 4C: 26.60 >55% EF 2C: 27.90 >55% EF BiP: 29.30 >55% Mitral Valve MV Pk E: 1.29 MV Decel Time: 103.00 E'Lateral: 5.77 E'Medial: 3.70 E/E' Med: 34.90 E/E' Lat: 22.40 PHT: 30.00 MVA PHT: 7.33 Decel Cloud: 12.56 Aortic Valve AoV Pk Osito: 1.09 AoV Mn Osito: 0.79 AoV VTI: 0.25 AoV Pk Grad: 5.00 Aov Mn Grad: 3.00 ASHLEY Cont.VTI: 3.56 LVOT LVOT Pk Osito: 0.80 LVOT Mn Osito: 0.58 LVOT VTI: 0.20 LVOT Pk Grad: 3.00 LVOT Mn Grad: 2.00 LVOT Diam: 2.40 LVOT Area: 4.52 Diastolic Function MV Pk E: 1.29 E'Medial: 3.70 E/E' Med: 34.90 E' Laterial: 5.77 E/E' Lat: 22.40 Right Ventricle TAPSE (mm): 29.00 Tricuspid Valve TR Pk Osito: 4.04 TR Pk Grad: 65.00 RA Press: 3.00 RVSP: 68.00 Great Vessels Aorta Ao Root-2D: 3.60 2.0-3.7 cm Pulmonary Valve PV Pk Osito: 0.78 Peak PV Grad: 2.00 Updated in Other Vendor System with Status of Final Robert Perry MD electronically signed on 10/10/2024 2:35:46 PM with status of Final
--- OUTSIDE RECORDS SUMMARY | 2024-10-08 16:20 | XMS_ITS | Patient Health Record ---
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 drug (Z79.02) Active confirmed Plan Of Treatment Future Test Test Name Order Date COLONOSCOPY 04/24/2019 Next Appt Details Provider Name:Nicojuhi dsouza Jr, 01/05/2025 01:15:00 PM, [address] [facility], [address], [place], [address], Insurance Providers Payer Name Payer Address Payer Phone Subscriber Number Group Number Insured Name Patient Relationship to Insured Coverage Start Date Coverage End Date [facility] [address] [place] [phone] [id number] ARIES CHAPMAN Self - patient is the insured Medicare of [place] [employer] [address] [place] [address] [id number] ARIES CHAPMAN Self - patient is the insured Medical (General) History Medical History History ICD Code 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
--- OUTSIDE RECORDS SUMMARY | 2024-10-08 16:20 | XMS_ITS | Clinical Summary ---
Author Organization [facility] Address [address] [place] [phone] Phone Care Team Providers Care Assembly Hand Name Role Phone Hilton Pepe MD Primary [...] Encounters Date Type Department Care Team Description 10/07/2024 Treatment [facility] [address] [address] Quinton Snider MD End stage renal disease; Dependence on renal dialysis 09/25/2024 Orders Only [facility] [address] [address] Quinton Snider MD 09/23/2024 Treatment [facility] [address] [address] Quinton Snider MD End stage renal disease; Dependence on renal dialysis 09/16/2024 Treatment [facility] [address] [address] Quinton Snider MD End stage renal disease; Dependence on renal dialysis 09/11/2024 Treatment [facility] [address] [address] Quinton Snider MD End stage renal disease; Dependence on renal dialysis 09/09/2024 Treatment [facility] [address] [address] Quinton Snider MD End stage renal disease; Dependence on renal dialysis 09/02/2024 Treatment [facility] the [address] [phone] Quinton Snider MD 08/26/2024 Treatment [facility] [address] [address] Quinton Snider MD 08/19/2024 Treatment [facility] [address] [address] Quinton Steele MD 08/14/2024 Treatment [facility] [address] [address] Quinton Snider MD 08/12/2024 Treatment [facility] [address] [address] Quinton Snider MD 07/29/2024 Treatment [facility] [address] [address] Quinton Snider MD 07/22/2024 Treatment [facility] [address] [address] Quinton Snider MD 07/15/2024 Treatment [facility] [address] [address] Quinton Snider MD 07/10/2024 Treatment [facility] [address] [address] Quinton Snider MD from Last 3 Months Immunizations Name Administration Dates Next Due Influenza (IM) Preservative Free 019,04/01/2018,03/27/2017,03/27 Influenza Split High Dose Pr eservative Free IM 04/28/2022,03/18/2021,03/19/2020 Influenza, Unspecified 04/28/2022,2020,03/19/2020,03/11,04/01/2018,03/27/2017,03/27/2016 ,05/19/2015 Moderna SARS-COV-2 03/02/2022,,06/24/2021,11/27,10/29/2020 Pneumococcal Conjugate 13-Valent 05/28/2017 Pneumococcal Polysaccharide 02/21/2021, [...] Exam 03/28/2022 Diabetes: Visual Foot Exam 03/28/2022 Diabetes: Hemoglobin A1C 10/15/2024 07/17/2024 Influenza Vaccine (Season Ended) 2025 04/28/2022, 04/28/2022, 03/18/2021, Additional history exists Pneumococcal Vaccine: 65+ Years Completed 02/21/2021, 05/28/2017, 12/17/2015, Additional history exists Procedures Procedure Name Priority Date/Time Associated Diagnosis Comments HEMOGLOBIN Routine 10/02/2024 3:00 AM EDT HEMOGLOBIN AND HEMATOCRIT, BLOOD Routine 09/25/2024 3:00 AM EDT HEPATITIS B SURFACE ANTIGEN W/REFL CONFIRM Routine [...] DATE (HC) Routine 07/17/2024 3:00 AM EST from Last 3 Months Results * (ABNORMAL) Hemoglobin (10/02/2024 3:00 AM EDT) Only the most recent of6 resultswithin the time period is included. Hgb 9.8(L) 13.7 - 17.5 g/dL [facility] Hemoglobin x 3 29.4(L) 41.1 - 52.5 g/dL [facility] 10/02/2024 3:00 AM EDT 10/03/2024 12:11 PM EDT us Quinton Snider MD LAB BLOOD ORDERABLES Final Resul t Performing Organization Address City/[facility]/ZIP Co de Phone Number [facility] [address] [place] [address] * (ABNORMAL) Hemoglobin and hematocrit (09/25/2024 3:00 AM EDT) Only the most recent of3 resultswithin the time period is included. Hgb 9.9(L) 13.7 - 17.5 g/dL [facility] Hematocrit 30.6(L) 40.1 - 51.0 % [facility] Hemoglobin x 3 29.7(L) 41.1 - 52.5 g/dL [facility] 09/25/2024 3:00 AM EDT 09/26/2024 12:31 PM EDT us Quinton Snider MD LAB BLOOD ORDERABLES Final Resul t Performing Organization Address City/[facility]/ZIP Co de Phone Number [facility] [address] [place] [address] * LIH (09/11/2024 3:00 AM EST) Only the most recent of4 resultswithin the time period is included. Lipemia Normal Normal [facility] Icterus Normal Normal [facility] Hemolysis Normal Normal [facility] 09/11/2024 3:00 AM EST 09/12/2024 12:13 PM EST us Quinton Snider MD LAB [id number] ICITED RESULTS Final Result Performing Organization Address [facility] de Phone Number [facility] [address] [place] [address] * (ABNORMAL) Kt/V Natural Log, URR (09/11/2024 3:00 AM EST) Only the most recent of4 resultswithin the time period is included. Treatment [...] 3:00 AM EST 09/12/2024 12:09 PM EST us Quinton Snider MD LAB [id number] ICITED RESULTS Final Result Performing Organization Address [facility] de Phone Number [facility] [address] [place] [address] * Calcium Phosphorus Product, Adjusted (09/11/2024 3:00 [...] PM EST us Quinton Snider MD LAB [id number] ICITED RESULTS Final Result Performing Organization Address [facility] Co de Phone Number [facility] [address] [place] [address] * Hepatitis B Surface Ag w/Reflex Confirmation (09/11/2024 3:00 AM EST) Only the most recent of3 resultswithin the time period is included. Pathologist [facility] [place] Hep B Surface Antigen Negative Negative [facility] 09/11/2024 3:00 AM EST 09/12/2024 12:13 PM EST us Quinton Snider MD LAB BLOOD ORDERABLES Final Resul t Performing Organization Address [facility] de Phone Number [facility] [address] [place] [address] * (ABNORMAL) TSAT (09/11/2024 3:00 AM EST) Only the most recent of3 resultswithin the time period is included. Pathologist [facility] [place] Iron 96 65 - 175 ug/dL [facility] Transferrin 138(L) 215 - 365 mg/dL [facility] TIBC 193(L) 211 - 406 ug/dL [facility] Iron Saturation (TSat) 50 22 - 52 % [facility] 09/11/2024 3:00 AM EST 09/12/2024 12:13 PM EST us Quinton Snider MD LAB BLOOD ORDERABLES Final Resul t Performing Organization Address [facility] de Phone Number [facility] [address] [place] [address] * (ABNORMAL) CBC and Differential (09/11/2024 3:00 AM EST) Only the most recent of2 resultswithin the time period is included. Pathologist [facility] [place] DIFFERENTIAL MANUAL, 2 Not Indicated [facility] White [...] ORDERABLES Final Resul t Performing Organization Address [facility] de Phone Number [facility] [address] [place] [address] * (ABNORMAL) ALT (09/11/2024 3:00 AM EST) Only the most recent of3 resultswithin the time period is included. ALT (SGPT) 8(L) 10 - 49 U/L [facility] 09/11/2024 3:00 AM EST 09/12/2024 12:13 PM EST us Quinton Snider MD LAB BLOOD ORDERABLES Final Resul t Performing Organization Address [facility] de Phone Number [facility] [address] [place] [address] * AST (09/11/2024 3:00 AM EST) Only the most recent of3 resultswithin the time period is included. AST (SGOT) 20 <34 U/L [facility] 09/11/2024 3:00 AM EST 09/12/2024 12:13 PM EST us Quinton Snider MD LAB BLOOD ORDERABLES Final Resul t Performing Organization Address City/[facility] Co de Phone Number [facility] [address] [place] [address] * (ABNORMAL) Protein, total (09/11/2024 3:00 AM EST) Only the most recent of3 resultswithin the time period is included. Total Protein 6.3(L) 6.4 - 8.9 g/dL [facility] 09/11/2024 3:00 AM EST 09/12/2024 12:13 PM EST us Quinton Snider MD LAB BLOOD ORDERABLES Final Resul t Performing Organization Address [facility] de Phone Number [facility] [address] [place] [address] * (ABNORMAL) Alkaline phosphatase (09/11/2024 3:00 AM EST) Only the most recent of3 resultswithin the time period is included. Alkaline Phosphatase 160(H) 46 - 116 U/L [facility] 09/11/2024 3:00 AM EST 09/12/2024 12:13 PM EST us Quinton Snider MD LAB BLOOD ORDERABLES Final Resul t Performing Organization Address [facility] Co de Phone Number [facility] [address] [place] [address] * Magnesium (09/11/2024 3:00 AM EST) Only the most recent of3 resultswithin the time period is included. Magnesium 2.0 1.9 - 2.7 mg/dL [facility] 09/11/2024 3:00 AM EST 09/12/2024 12:13 PM EST us Quinton Snider MD LAB BLOOD ORDERABLES Final Resul t Performing Organization Address [facility] Co de Phone Number [facility] [address] [place] [address] * Lactate dehydrogenase (09/11/2024 3:00 AM EST) Only the most recent of3 resultswithin the time period is included. LDH 215 120 - 246 U/L [facility] 09/11/2024 3:00 AM EST 09/12/2024 12:13 PM EST us Quinton Snider MD LAB BLOOD ORDERABLES Final Resul t Performing Organization Address [facility] de Phone Number [facility] [address] [place] [address] * Glucose, random (09/11/2024 3:00 AM EST) Only the most recent of3 resultswithin the time period is included. Glucose 109 74 - 109 mg/dL [facility] 09/11/2024 3:00 AM EST 09/12/2024 12:13 PM EST us Quinton Snider MD LAB BLOOD ORDERABLES Final Resul t Performing Organization Address [facility] Co de Phone Number [facility] [address] [place] [address] * Ferritin (09/11/2024 3:00 AM EST) Only the most recent of3 resultswithin the time period is included. Ferritin 300 22 - 322 ng/mL [facility] 09/11/2024 3:00 AM EST 09/12/2024 12:13 PM EST us Quinton Snider MD LAB BLOOD ORDERABLES Final Resul t Performing Organization Address City/[facility] Co de Phone Number [facility] [address] [place] [address] * (ABNORMAL) Creatinine, serum (09/11/2024 3:00 AM EST) Only the most recent of3 resultswithin the time period is included. Creatinine 7.09(H) 0.70 - 1.30 mg/dL [facility] 09/11/2024 3:00 AM EST 09/12/2024 12:13 PM EST us Quinton Snider MD LAB BLOOD ORDERABLES Final Resul t Performing Organization Address [facility] de Phone Number [facility] [address] [place] [address] * Bilirubin, total (09/11/2024 3:00 AM EST) Only the most recent of3 resultswithin the time period is included. Total Bilirubin 0.3 0.3 - 1.2 mg/dL [facility] 09/11/2024 3:00 AM EST 09/12/2024 12:13 PM EST us Quinton Snider MD LAB BLOOD ORDERABLES Final Resul t Performing Organization Address [facility] de Phone Number [facility] [address] [place] [address] * Electrolyte panel (09/11/2024 3:00 AM EST) [...] ORDERABLES Final Resul t Performing Organization Address [facility] de Phone Number [facility] [address] [place] [address] * Confirmation Test HCV (07/17/2024 3:00 AM EST) Hep C Ab Confirmation Not needed [facility] 07/17/2024 3:00 AM EST 07/21/2024 2:06 PM EST us Quinton Snider MD LAB BLOOD ORDERABLES Final Resul t Performing Organization Address [facility] Co de Phone Number [facility] [address] [place] [address] * Collection Date (07/17/2024 3:00 AM EST) Collection Date See Comment [facility] Comment: Patient sample received may exceed specimen stability, based on the collection date electronically provided. ??When reviewing patient results, verify collection information and consider specimen stability before acting on any critical or panic results. 07/17/2024 3:00 AM EST us Quinton Snider MD LAB [id number] ICITED RESULTS Final Result Performing Organization Address [facility] de Phone Number [facility] [address] [place] [address] * HEPATITIS C ABS W/REFLEX RNA DETECTR (07/17/2024 3:00 AM EST) Hep C Virus Ab Non-Reacti ve Non-Reacti ve [facility] 07/17/2024 3:00 AM EST 07/21/2024 2:06 PM EST us Quinton Snider MD LAB [id number] ICITED RESULTS Final Result Performing Organization Address [facility] de Phone Number [facility] [address] [place] [address] * Aluminum level (07/17/2024 3:00 AM EST) Aluminum 4 1 - 20 ug/L [facility] 07/17/2024 3:00 AM EST 07/21/2024 1:59 PM EST us Quinton Snider MD LAB BLOOD ORDERABLES Final Resul t Performing Organization Address [facility] Co de Phone Number [facility] [address] [place] [address] * (ABNORMAL) Hepatitis B Surface Antibody (07/17/2024 3:00 AM EST) Hep B Surface Antibody <4(A) mIU/mL [facility] Comment: Interpretation: <10: No Immunity >=10: Probable Immunity 07/17/2024 3:00 AM EST 07/21/2024 2:06 PM EST us Quinton Snider MD LAB BLOOD ORDERABLES Final Resul t Performing Organization Address [facility] de Phone Number [facility] [address] [place] [address] * Uric Acid (07/17/2024 3:00 AM EST) Uric Acid 4.7 4.4 - 7.6 mg/dL [facility] 07/17/2024 3:00 AM EST 07/21/2024 2:06 PM EST us Quinton Snider MD LAB BLOOD ORDERABLES Final Resul t Performing Organization Address [facility] de Phone Number [facility] [address] [place] [address] * PTH, Intact (07/17/2024 3:00 AM EST) PTH, Intact 206 160 - 721 pg/mL [facility] Comment: Suggested (KDIGO) ESRD maintenance range is two to nine times the upper normal limit (80.1 pg/mL) for the laboratory. 07/17/2024 3:00 AM EST 07/21/2024 2:06 PM EST us Quinton Snider MD LAB BLOOD ORDERABLES Final Resul t Performing Organization Address [facility] Co de Phone Number [facility] [address] [place] [address] * Hemoglobin A1c (07/17/2024 3:00 AM EST) [...] Final Resul t [facility] [address] [place] [address] * (ABNORMAL) Lipid panel (07/17/2024 3:00 AM [...] Final Resul t [facility] [address] [place] [address] from Last [address] [address] Care Teams Assembly Hand Relationship Specialty Start Date End Date Hilton Pepe MD [address] [place] [address] [id number] [place] PCP - General Internal Medicine 03/23/22
--- OUTSIDE RECORDS SUMMARY | 2024-10-08 16:20 | XMS_ITS | Patient Health Record ---
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 Name Role Phone Hilton Pepe Primary Care Provider Allergies No Known Allergies Results Component Value Reference Range Notes Hemoglobin A1c Reviewed date:12/21/2023 11:19:02 AM Interpretation: Performing Lab: Notes/Report: Hemoglobin A1c 5.8 Hemoglobin A1c Reviewed date:05/15/2024 01:58:17 PM Interpretation: Performing Lab: Notes/Report: Hemoglobin A1c 5.7 Complete Blood Count Auto Di ff Reviewed date:10/12/2023 02:14:20 PM Interpretation: Performing Lab:[facility], [address] [place] [phone] Notes/Report: White Blood Count 8.0 4.8-10.8 X10*3/uL Red Blood Count 3.17 4.60-5.80 X10*6/uL Hemoglobin 9.7 14.0-18.0 g/dl Hematocrit 30.4 42.0-52.0 % Mean Corpuscular Volume 95.9 80.0-98.0 fL Mean Corpuscular Hemoglobin 30.6 27.0-33.0 pg Mean Corpuscular HGB Conc 31.9 31.0-36.0 g/dl Red Cell Distribution Width 13.2 11.0-16.0 % Platelet Count 165 160-400 X10*3/uL Mean Platelet Volume 12.4 9.4-12.4 fL Neutrophils Percent Auto 55.8 45-73 % Imm Gran Pct Auto 0.1 0.0-0.4 % Lymphocytes Percent Auto 32.3 20-40 % Monocytes Percent Auto 7.2 2-11 % Eosinophils Percent Auto 4.1 0-4 % Basophils Percent Auto 0.5 0-2 % NRBC Pct Auto 0.0 0.0-0.2 /100WBC Neutrophils Absolute Auto 4.5 2.0-8.3 x10*3/uL Imm Gran Abs Auto 0.01 0.00-0.03 X10*3/uL Lymphocytes Absolute Auto 2.6 1.2-4.9 X10*3/uL Monocytes Absolute Auto 0.6 0.1-1.2 X10*3/uL Eosinophils Absolute Auto 0.3 0.0-0.4 X10*3/uL Basophils Absolute Auto 0.0 0.0-0.2 X10*3/uL NRBC Abs Auto 0.000 0.0-0.012 X10*3/uL IRON PROFILE Reviewed date:10/12/2023 02:12:12 PM Interpretation: Performing Lab:[facility], [address] [place] [phone] Notes/Report: Iron 54 45-160 mcg/dL Total Iron Binding Capacity 219 228-428 mcg/dL Percent Iron Saturation 25 15-50 % Unsaturated Iron Binding 165 Complete Blood Count Auto Di ff Reviewed date:02/21/2024 12:29:04 PM Interpretation: Performing Lab:[facility], [address] [place] [phone] Notes/Report: White Blood Count 7.2 4.8-10.8 X10*3/uL Red Blood Count 2.94 4.60-5.80 X10*6/uL Hemoglobin 8.6 14.0-18.0 g/dl Hematocrit 27.0 42.0-52.0 % Mean Corpuscular Volume 91.8 80.0-98.0 fL Mean Corpuscular Hemoglobin 29.3 27.0-33.0 pg Mean Corpuscular HGB Conc 31.9 31.0-36.0 g/dl Red Cell Distribution Width 14.0 11.0-16.0 % Platelet Count 166 160-400 X10*3/uL Mean Platelet Volume 12.0 9.4-12.4 fL Neutrophils Percent Auto 54.6 45-73 % Imm Gran Pct Auto 0.4 0.0-0.4 % Lymphocytes Percent Auto 33.1 20-40 % Monocytes Percent Auto 8.0 2-11 % Eosinophils Percent Auto 3.3 0-4 % Basophils Percent Auto 0.6 0-2 % NRBC Pct Auto 0.0 0.0-0.2 /100WBC Neutrophils Absolute Auto 4.0 2.0-8.3 x10*3/uL Imm Gran Abs Auto 0.03 0.00-0.03 X10*3/uL Lymphocytes Absolute Auto 2.4 1.2-4.9 X10*3/uL Monocytes Absolute Auto 0.6 0.1-1.2 X10*3/uL Eosinophils Absolute Auto 0.2 0.0-0.4 X10*3/uL Basophils Absolute Auto 0.0 0.0-0.2 X10*3/uL NRBC Abs Auto 0.000 0.0-0.012 X10*3/uL Urinalysis and Microscopic Reviewed date:02/21/2024 12:53:45 PM Interpretation: Performing Lab:[facility], [address] [place] [phone] Notes/Report: Color Urine Yellow Appearance Urine Cloudy PH 6.0 5.0-9.0 Glucose Urine UA Negative Negative mg/dL Urine Blood Negative Negative Specific [place] - Urine 1.010 1.005-1.025 Urine Protein Trace Neg-Trace mg/dL Urine Ketones Negative Negative mg/dL Nitrite Urine Negative Negative Leukocyte Esterase Urine Large (3+) Negative RBC Urine 0-2 0-2 /HPF WBC Urine >50 0-5 /HPF WBC Clumps Urine Present Squamous Epithelial Cell Urine 0-2 0-2 /HPF Other Crystals Urine Present Bacteria Urine Trace None Seen Hyaline Casts Urine 0-2 0-2 /LPF Comprehensive [place]. Panel Fa Reviewed date:02/21/2024 12:30:00 PM Interpretation: Performing Lab:[address] [phone] Notes/Report: Sodium 141 135-145 mmol/L Potassium 4.6 3.3-5.1 mmol/L Chloride 115 96-108 mmol/L Carbon Dioxide 17 22-29 mmol/L Anion Gap 14 12-20 Blood Urea Nitrogen 80 9-16 mg/dL Creatinine 4.56 0.5-1.4 mg/dL Critical value for test(s): KAVITA Results called to and read back by:ASHLEY Brandon Person calling: KRISTIN Date: 02/21/24 Time: 1150 Estimated Glomerular Filt Rate 13 NOTE: For -Dutch individuals, multiply the result by 1.210. Chronic Kidney Disease: Estimated GFR < 60 mL/min/1.73m2 Severe Kidney Disease: Estimated GFR < 15 mL/min/1.73m2 Glucose Fasting 93 60-99 mg/dL Calcium 8.6 8.4-10.2 mg/dL Bilirubin Total 0.4 0.0-1.0 mg/dL Aspartate Amino Transferase 19 5-37 U/L Alanine Aminotransferase 16 0-40 U/L Total Protein 6.9 6.5-8.0 g/dL Albumin Level 3.8 3.5-5.0 g/dL Alkaline Phosphatase 101 39-117 U/L Lipid Panel Reviewed date:02/21/2024 12:30:57 PM Interpretation: Performing Lab:[address] [phone] Notes/Report: Triglycerides 87 <150 mg/dL Desirable Triglyceride: less than 150 mg/dL Borderline High Triglyceride 150-199 mg/dL High Triglyceride: 200-499 mg/dL Very High Triglyceride: greater than or equal to 5OO mg/dL Cholesterol 82 <200 mg/dL Desirable Cholesterol: less than 200 mg/dL Borderline High Cholesterol: 200-239 mg/dL High Cholesterol: greater than 239 mg/dL LDL Cholesterol Calculated 38 <100 mg/dL Desirable LDL: less than 100 mg/dL Near Optimal/Above Optimal LDL: 110-129 mg/dL Borderline High LDL: 130-159 mg/dL High LDL: 160-189 mg/dL Very High LDL: greater than or equal to 190 mg/dL HDL Cholesterol 27 >40 mg/dL Desirable HDL: greater than 40 mg/dL Note: This HDL assay may give artificially low results in patients with liver disease. PSA,Total (Free>4and<10) Reviewed date:02/21/2024 12:30:48 PM Interpretation: Performing Lab:[address] [phone] Notes/Report: PSA,Total (Free>4and<10) 0.81 0.00-4.00 ng/mL A Free PSA was not performed: The percentage of Free PSA can be used to enhance the differentiation of prostate cancer from benign prostatic disease in subjects whose PSA levels are between 4.0 and 10.0 ng/mL. For subjects whose PSA levels are below 4.0 or above 10.0 ng/mL, the risk of prostate cancer is determined on the basis of the PSA alone. Therefore the % Free PSA is recommended only for those subjects whose PSA levels are between 4.0 and 10.0 ng/mL. PSA methodology: Gunn Alinity i Chemiluminescent Microparticle Immunoassay (CMIA) Microalbumin, Random Reviewed date:02/21/2024 12:33:26 PM Interpretation: Performing Lab:[address] [phone] Notes/Report: Creatinine Urine 50.19 Microalbumin Urine 88.0 Microalbum/Creatinine Ratio Ur 175.3 <30 ug/mg cr Albumin/Creatinine Ratio Reference Ranges: Normal: < 30 ug/mg creatinine Microalbuminuria: 30 - 300 ug/mg creatinine Clinical Albuminuria: > 300 ug/mg creatinine Hemoglobin A1c Reviewed date:02/21/2024 12:31:05 PM Interpretation: Performing Lab:[facility], [address] [place] [phone] Notes/Report: Hemoglobin A1c % 6.5 <6.0 % Hemoglobin A1C Reference Range Adults: 4.8 - 6.0 % Non diabetic: < 6.0 % Goal: < 7.0 % Additional Action Suggested: > 8.0 % Note: Hemoglobin A1c results are invalid for patients with abnormal amounts of HbF. Blood transfusions may impact the HbA1c concentration in the patient sample. Estimated Average Glucose 140 eAG = Estimated average glucose which is %A1C expressed as average glucose, using the formula of the [id number] Average Glucose study (ADAG), Diabetes Care, Vol.31,#8, Feb. 2007 Glucose, finger stick Reviewed date:12/21/2023 10:58:29 AM Interpretation: Performing Lab: Notes/Report: Value 90 Comprehensive Met. Panel Reviewed date:02/29/2024 12:25:53 PM Interpretation: Performing Lab:[facility], [address] [place] [phone] Notes/Report: Sodium 135 135-145 mmol/L Potassium 6.6 3.3-5.1 mmol/L Critical value for test(s): POTS Results called to and read back by:Tidalwave TraderWAK Person calling:InCytuERD Date: 02/28/24 Time: 1704 Chloride 110 96-108 mmol/L Carbon Dioxide 14 22-29 mmol/L Anion Gap 18 12-20 Blood Urea Nitrogen 98 9-16 mg/dL Creatinine 8.38 0.5-1.4 mg/dL Critical value for test(s): KAVITA Results called to and read back by: Tidalwave TraderWAK Person calling:InCytuERD Date: 02/28/24 Time: 1704 Estimated Glomerular Filt Rate 6 NOTE: For -Dutch individuals, multiply the result by 1.210. Chronic Kidney Disease: Estimated GFR < 60 mL/min/1.73m2 Severe Kidney Disease: Estimated GFR < 15 mL/min/1.73m2 Glucose Random 140 60-115 mg/dL Calcium 9.2 8.4-10.2 mg/dL Bilirubin Total 0.3 0.0-1.0 mg/dL Aspartate Amino Transferase 17 5-37 U/L Alanine Aminotransferase 13 0-40 U/L Total Protein 6.8 6.5-8.0 g/dL Albumin Level 3.7 3.5-5.0 g/dL Alkaline Phosphatase 137 39-117 U/L Urine Culture Reviewed date:03/02/2024 08:44:57 PM Interpretation: Performing Lab:[address] [phone] Notes/Report: Urine Culture Report Result Urine Culture 10,000 to 50,000 cfu/ml Urine Culture Mixed bacterial sincere a characteristic of Urine Culture urogenital contamination. UA ClnCatch+Micro w/rflx Cul t Reviewed date:02/28/2024 04:14:21 PM Interpretation: Performing Lab:[address] [phone] Notes/Report: Urine, Clean Catch Color Urine Yellow Appearance Urine Clear PH 5.0 5.0-9.0 Glucose Urine UA Negative Negative mg/dL Urine Blood Negative Negative Specific [place] - Urine 1.010 1.005-1.025 Urine Protein 30 (1+) Neg-Trace mg/dL Urine Ketones Negative Negative mg/dL Nitrite Urine Negative Negative Leukocyte Esterase Urine Moderate (2+) Negative RBC Urine 0-2 0-2 /HPF WBC Urine 21-50 0-5 /HPF Squamous Epithelial Cell Urine 6-10 0-2 /HPF Bacteria Urine None Seen None Seen Hyaline Casts Urine 0-2 0-2 /LPF Glucose, finger stick Reviewed date:05/01/2024 01:12:31 PM Interpretation: Performing Lab: Notes/Report: Value 168 Glucose, finger stick Reviewed date:05/15/2024 01:52:35 PM Interpretation: Performing Lab: Notes/Report: Value 149 Hold Gold Reviewed date:10/12/2023 02:01:57 PM Interpretation: Performing Lab:[facility], [address] [place] [phone] Notes/Report: Hold Gold See Note Specimen held untested for 24 hours; Call to request Chemistry testing. Complete Blood Count Auto Di ff Reviewed date:02/29/2024 12:26:14 PM Interpretation: Performing Lab:[facility], [address] [place] [phone] Notes/Report: White Blood Count 6.6 4.8-10.8 X10*3/uL Red Blood Count 3.16 4.60-5.80 X10*6/uL Hemoglobin 9.6 14.0-18.0 g/dl Hematocrit 28.7 42.0-52.0 % Mean Corpuscular Volume 90.8 80.0-98.0 fL Mean Corpuscular Hemoglobin 30.4 27.0-33.0 pg Mean Corpuscular HGB Conc 33.4 31.0-36.0 g/dl Red Cell Distribution Width 14.2 11.0-16.0 % Platelet Count 144 160-400 X10*3/uL Mean Platelet Volume 11.7 9.4-12.4 fL Neutrophils Percent Auto 53.9 45-73 % Imm Gran Pct Auto 0.3 0.0-0.4 % Lymphocytes Percent Auto 31.5 20-40 % Monocytes Percent Auto 10.1 2-11 % Eosinophils Percent Auto 3.9 0-4 % Basophils Percent Auto 0.3 0-2 % NRBC Pct Auto 0.0 0.0-0.2 /100WBC Neutrophils Absolute Auto 3.6 2.0-8.3 x10*3/uL Imm Gran Abs Auto 0.02 0.00-0.03 X10*3/uL Lymphocytes Absolute Auto 2.1 1.2-4.9 X10*3/uL Monocytes Absolute Auto 0.7 0.1-1.2 X10*3/uL Eosinophils Absolute Auto 0.3 0.0-0.4 X10*3/uL Basophils Absolute Auto 0.0 0.0-0.2 X10*3/uL NRBC Abs Auto 0.000 0.0-0.012 X10*3/uL Comprehensive Met. Panel Reviewed date:02/29/2024 12:24:26 PM Interpretation: Performing Lab:[facility], [address] [place] [phone] Notes/Report: Sodium 137 135-145 mmol/L Potassium 6.2 3.3-5.1 mmol/L Critical value for test(s): POTS Results called to and read back by: KANU Person calling: SALIERD Date:02/28/24 Time:1855 Chloride 110 96-108 mmol/L Carbon Dioxide 14 22-29 mmol/L Anion Gap 19 12-20 Blood Urea Nitrogen 98 9-16 mg/dL Creatinine 8.42 0.5-1.4 mg/dL Critical value for test(s): KAVITA Results called to and read back by: KANU Person calling: SALIERD Date: 02/28/24 Time: 1855 Creatinine Clr Calc Pharmacy 8.9 eGFR (calculated from the MDRD study equation) and eCrCl (calculated from the Cockcroft-Gault equation) are based on different parameters and may not yield comparable results. If eCrCl result is absurd, please check patient's height/weight. Estimated Glomerular Filt Rate 6 NOTE: For -Dutch individuals, multiply the result by 1.210. Chronic Kidney Disease: Estimated GFR < 60 mL/min/1.73m2 Severe Kidney Disease: Estimated GFR < 15 mL/min/1.73m2 Glucose Random 122 60-115 mg/dL Calcium 9.2 8.4-10.2 mg/dL Bilirubin Total 0.4 0.0-1.0 mg/dL Aspartate Amino Transferase 18 5-37 U/L Alanine Aminotransferase 15 0-40 U/L Total Protein 7.3 6.5-8.0 g/dL Albumin Level 3.9 3.5-5.0 g/dL Alkaline Phosphatase 137 39-117 U/L Basic Metabolic Panel Reviewed date:02/29/2024 12:24:51 PM Interpretation: Performing Lab:[address] [phone] Notes/Report: Sodium 137 135-145 mmol/L Potassium 6.1 3.3-5.1 mmol/L Critical value for test(s): POTS Results called to and read back by: ANWM Person calling: SALIERD Date: 02/28/24 Time: 2222 Chloride 111 96-108 mmol/L Carbon Dioxide 15 22-29 mmol/L Anion Gap 17 12-20 Blood Urea Nitrogen 101 9-16 mg/dL Creatinine 7.96 0.5-1.4 mg/dL Critical value for test(s): KAVITA Results called to and read back by:ANWM Person calling: SALIERD Date: 02/28/24 Time: 2222 Creatinine Clr Calc Pharmacy 9.4 eGFR (calculated from the MDRD study equation) and eCrCl (calculated from the Cockcroft-Gault equation) are based on different parameters and may not yield comparable results. If eCrCl result is absurd, please check patient's height/weight. Estimated Glomerular Filt Rate 7 NOTE: For -Dutch individuals, multiply the result by 1.210. Chronic Kidney Disease: Estimated GFR < 60 mL/min/1.73m2 Severe Kidney Disease: Estimated GFR < 15 mL/min/1.73m2 Glucose Random 139 60-115 mg/dL Calcium 8.8 8.4-10.2 mg/dL Magnesium Reviewed date:02/29/2024 12:24:05 PM Interpretation: Performing Lab:[facility], [address] [place] [phone] Notes/Report: Magnesium 2.0 1.6-2.6 mg/dL Venous Blood Gases - POC Reviewed date:02/29/2024 12:23:51 PM Interpretation: Performing Lab:[address] [phone] Notes/Report: VBG pH 7.23 7.32-7.43 METER #: [id number] additional_comment: Malik funez VBG pCO2 33 METER #: [id number] additional_comment: Malik funez VBG pO2 49 METER #: [id number] additional_comment: Malik FREEMANG Base Excess -11.9 METER #: [id number] additional_comment: Malik FREEMANG HCO3 14 22-26 mmol/L METER #: [id number] additional_comment: Malik FREEMANG O2 % Saturation 72.0 METER #: [id number] additional_comment: Malik funez CT abdomen pelvis wo con Reviewed date:02/29/2024 12:23:34 PM Interpretation: Performing Lab: Notes/Report: [address] [address] [address] Scan Report Signed Patient: Woody Alfredo MR#: [id number] : 1955 Acct:[id number] Age/Sex: 68 / M ADM Date: 02/28/24 Loc: [facility]: Elijah Lewis MD Ordering Physician: Alicia Lawson MD Date of Service: 02/28/24 Procedure(s): CT abdomen pelvis wo IV con Accession Number(s): [id number] cc: Alicia Lawson MD; Hilton Pepe MD EXAMINATION: CT ABDOMEN AND PELVIS WITHOUT CONTRAST CLINICAL INFORMATION: Question hydronephrosis. COMPARISON: Abdominal ultrasound 04/18/2022. TECHNIQUE: Multidetector volumetric imaging was performed from the superior aspect of the liver through the pubic symphysis. Sagittal and coronal reformatted images were obtained on the technologist's workstation. This CT examination was performed using dose optimization techniques as appropriate, variously including the following: *Automated exposure control *Adjustment of mA and/or kV according to patient size (this includes techniques or standardized protocols for targeted exams where dose is matched to indication/reason for exam; i.e. extremities or head) *Use of iterative reconstruction technique DLP: 622 mGy-cm FINDINGS: LUNG BASES: Partial visualization of prominent scattered coronary artery calcific atherosclerosis. LIVER, GALLBLADDER, AND BILIARY TREE: Scattered punctate benign-appearing calcifications within the liver which may represent calcified granulomas. The gallbladder is unremarkable with no evidence of radiopaque gallstones, gallbladder wall thickening, or obvious pericholecystic inflammatory changes. PANCREAS: Unremarkable. SPLEEN: Unremarkable. ADRENAL GLANDS: Unremarkable. KIDNEYS AND URETERS: No hydronephrosis identified. No perinephric inflammatory changes. Making allowances for multifocal vascular calcifications, no definitive urolithiasis. BLADDER: Decompressed. Beth catheter terminating within the urinary bladder. GASTROINTESTINAL TRACT: No intestinal dilatation or mural thickening. Normal appearance of the appendix. No free intraperitoneal fluid or gas collections. Normal appearance of the sigmoid colon. Scattered benign-appearing calcified granulomas within the small bowel mesentery. The stomach is collapsed and is without evidence of gross abnormality. ABDOMINAL WALL: Anasarca. LYMPH NODES: Normal. VASCULAR: Diffuse atherosclerotic vascular calcifications. Diffuse Monckeberg type vascular calcifications. PELVIC VISCERA: Unremarkable. 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 CT/CT abdomen pelvis wo IV con IMPRESSION: 1. No acute abnormalities identified. No hydronephrosis. No definitive urolithiasis. Beth catheter terminating within the urinary bladder which is decompressed. 2. Diffuse Monckeberg type vascular calcifications and marked diffuse atherosclerotic calcifications. The Monckeberg type vascular calcifications may be secondary to diabetes mellitus or chronic renal dysfunction. 3. 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 4. Anasarca. Electronically signed by: Ranjit Lugo MD 02/29/2024 12:10 AM EDT Dictated By: Ranjit Lugo MD Signed By: <Electronically signed by Ranjit Lugo MD in OV> 02/29/24 0010 DD/ 21 TD/TT: 02/28/242037 Asp Web Developer: [address] [address] [address] Scan Report Signed Patient: Woody Alfredo MR#: [id number] : 1955 Acct:[id number] Age/Sex: 68 / M ADM Date: 02/28/24 Loc: [facility]: Elijah Lewis MD Ordering Physician: Alicia Lawson MD Date of Service: 02/28/24 Procedure(s): CT abdomen pelvis wo IV con Accession Number(s): [id number] cc: Alicia Lawson MD; Hilton Pepe MD EXAMINATION: CT ABDOMEN AND PELVI S WITHOUT CONTRAST CLINICAL INFORMATION: Question hydronephrosis. COMPARISON: Abdominal ultrasound 04/18/2022. TECHNIQUE: Multidetector volumetric imaging was performed from the superior aspect of the liver through the pubic symphysis. Sagittal and coronal reformatted images w ere obtained on the technologist's workstation. This CT examination was performed using dose optimization techniques as appropriate, various ly including the following: *Automated exposure control *Adjustment of mA and/or kV according to patient size (this includes techniques or standardized protocols for targeted exams where dose is matched to indication/reason for exam; i.e. extremities or head) *Use of iterative reconstruction technique DLP: 622 mGy-cm FINDINGS: LUNG BASES: Partial visualization of prominent scattered coronary artery calcific atherosclerosis. LIVER, GALLBLADDER, AND BILIARY TREE: Scattered punctate benign-appearing calcifications within the liver which may represent calcified granulomas . The gallbladder is unremarkable with no evidence of radiopaque gallstones, gallbladder wall thickening, or obvious pericholecystic inflammatory changes. PANCREAS: Unremarkable. SPLEEN: Unremarkable. ADRENAL GLANDS: Unremarkable. KIDNEYS AND URETERS: No hydronephrosis identified. No perinephric inflammatory changes . Making allowances for multifocal vascular calcifications, no definitive urolithiasis. BLADDER: Decompresse d. Beth catheter terminating within the urinary bladder. GASTROINTESTINAL TRA CT: No intestinal dilatation or mural thickening. Normal appearance of the appendix. No free intraperitoneal fluid or gas collections. Normal appearance of the sigmoid colon. Scattered benign-appearing calcified granulomas within the small bowel mesentery. The stomach is collapsed and is without evidence of gross abnormality. ABDOMINAL WALL: Anasarca. LYMPH NODES: Normal. VASCULAR: Diffuse atherosclerotic vascular calcifications. Diffuse Monckeberg type vascular calcifications. PELVIC VISCERA: Unremarkable. 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 CT/CT abdomen pelvis wo IV con IMPRESSION: 1. No acute abnormalities identified. No hydronephrosis. No definitive urolithiasis. Beth catheter terminating within the urinary bladder which is decompressed. 2. Diffuse Monckeber g type vascular calcifications and marked diffuse atherosclerotic calcifications. The Monckeberg type vascular calcifications may b e secondary to diabetes mellitus or chronic renal dysfunction. 3. 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 4. Anasarca. Electronically derick d by: Ranjit Lugo MD 02/29/2024 12:10 AM EDT Dictated By: Ranjit Lugo MD Signed By: <Electronically signed by Ranjit Lugo MD in OV> 02/29/24 0010 DD/ 21 TD/TT: 02/28/242037 Asp Web Developer: Complete Blood Count no Diff Reviewed date:02/29/2024 12:36:58 PM Interpretation: Performing Lab:[address] [phone] Notes/Report: White Blood Count 6.7 4.8-10.8 X10*3/uL Red Blood Count 2.49 4.60-5.80 X10*6/uL Hemoglobin 7.2 14.0-18.0 g/dl Hematocrit 22.4 42.0-52.0 % Mean Corpuscular Volume 90.0 80.0-98.0 fL Mean Corpuscular Hemoglobin 28.9 27.0-33.0 pg Mean Corpuscular HGB Conc 32.1 31.0-36.0 g/dl Red Cell Distribution Width 14.3 11.0-16.0 % Platelet Count 120 160-400 X10*3/uL Mean Platelet Volume 11.6 9.4-12.4 fL NRBC Pct Auto 0.0 0.0-0.2 /100WBC NRBC Abs Auto 0.000 0.0-0.012 X10*3/uL Hemoglobin and Hematocrit Reviewed date:03/02/2024 08:44:57 PM Interpretation: Performing Lab:[address] [phone] Notes/Report: Hemoglobin 8.5 14.0-18.0 g/dl Hematocrit 26.2 42.0-52.0 % Prothrombin Time INR Reviewed date:03/02/2024 08:44:57 PM Interpretation: Performing Lab:[facility], [address] [place] [phone] Notes/Report: Prothrombin Time 12.2 11.1-13.3 SEC INTERNATIONAL NORM RATIO 1.0 0.9-1.1 INTERNATIONAL NORMALIZED RATIO (INR) REFERENCE RANGES Reference Range For patients not on anticoagulant therapy: 0.9 - 1.1 INR ranges for oral anticoagulant therapy: For prevention and treatment of venous thrombosis and pulmonary embolism: 2.0 - 3.0 For acute myocardial infarction with aspirin therapy: 2.0 - 3.0 For acute myocardial infarction without aspirin therapy: 3.0 - 4.0 For patients with mechanical prosthetic heart valves: 2.5 - 3.5 Partial Thromboplastin Time Reviewed date:03/02/2024 08:44:57 PM Interpretation: Performing Lab:[address] [address] Notes/Report: Partial Thromboplastin Time 28.8 26.0-36.8 SEC For information regarding the monitoring of direct thrombin inhibitors, please refer to Pharmacy. Basic Metabolic Panel Reviewed date:02/29/2024 12:26:50 PM Interpretation: Performing Lab:[facility], [address] [place] [phone] Notes/Report: Sodium 139 135-145 mmol/L Potassium 4.9 3.3-5.1 mmol/L Chloride 111 96-108 mmol/L Carbon Dioxide 16 22-29 mmol/L Anion Gap 17 12-20 Blood Urea Nitrogen 96 9-16 mg/dL Creatinine 7.77 0.5-1.4 mg/dL Initial critical Creatinine result previously called (meets [facility] critical value policy standard). Creatinine Clr Calc Pharmacy 9.7 eGFR (calculated from the MDRD study equation) and eCrCl (calculated from the Cockcroft-Gault equation) are based on different parameters and may not yield comparable results. If eCrCl result is absurd, please check patient's height/weight. Estimated Glomerular Filt Rate 7 NOTE: For -Dutch individuals, multiply the result by 1.210. Chronic Kidney Disease: Estimated GFR < 60 mL/min/1.73m2 Severe Kidney Disease: Estimated GFR < 15 mL/min/1.73m2 Glucose Random 124 60-115 mg/dL Calcium 8.4 8.4-10.2 mg/dL Glucose, Whole Blood Reviewed date:02/29/2024 12:06:51 PM Interpretation: Performing Lab:[facility] [address], [place] [address] Notes/Report: Glucose, Whole Blood 115 60-115 mg/dL METER # : [id number] Venous Blood Gases - POC Reviewed date:02/29/2024 12:04:09 PM Interpretation: Performing Lab:[facility], [address] [place] [phone] Notes/Report: VBG pH 7.39 7.32-7.43 METER #: [id number] additional_comment: Cbperezst VBG pCO2 33 METER #: [id number] additional_comment: Cbperezst VBG pO2 31 METER #: [id number] additional_comment: Cbperezst VBG Base Excess -3.5 METER #: [id number] additional_comment: Cbperezst VBG HCO3 20 22-26 mmol/L METER #: [id number] additional_comment: Cbperezst VBG O2 % Saturation 48.0 METER #: [id number] additional_comment: Cbperezst Glucose, Whole Blood Reviewed date:02/29/2024 12:10:12 PM Interpretation: Performing Lab:[facility], [address] [place] [phone] Notes/Report: Glucose, Whole Blood 146 60-115 mg/dL METER # : [id number] Glucose, Whole Blood Reviewed date:03/02/2024 08:44:57 PM Interpretation: Performing Lab:[facility], [address] [place] [phone] Notes/Report: Glucose, Whole Blood 187 60-115 mg/dL METER # : [id number] Glucose, Whole Blood Reviewed date:03/02/2024 08:44:57 PM Interpretation: Performing Lab:[facility], [address] [place] [phone] Notes/Report: Glucose, Whole Blood 115 60-115 mg/dL METER # : [id number] Complete Blood Count Auto Di ff Reviewed date:03/02/2024 08:44:57 PM Interpretation: Performing Lab:[facility], [address] [place] [phone] Notes/Report: White Blood Count 6.5 4.8-10.8 X10*3/uL Red Blood Count 2.49 4.60-5.80 X10*6/uL Hemoglobin 7.3 14.0-18.0 g/dl Hematocrit 22.1 42.0-52.0 % Mean Corpuscular Volume 88.8 80.0-98.0 fL Mean Corpuscular Hemoglobin 29.3 27.0-33.0 pg Mean Corpuscular HGB Conc 33.0 31.0-36.0 g/dl Red Cell Distribution Width 14.0 11.0-16.0 % Platelet Count 125 160-400 X10*3/uL Mean Platelet Volume 11.9 9.4-12.4 fL Neutrophils Percent Auto 54.3 45-73 % Imm Gran Pct Auto 0.2 0.0-0.4 % Lymphocytes Percent Auto 31.7 20-40 % Monocytes Percent Auto 10.3 2-11 % Eosinophils Percent Auto 3.2 0-4 % Basophils Percent Auto 0.3 0-2 % NRBC Pct Auto 0.0 0.0-0.2 /100WBC Neutrophils Absolute Auto 3.5 2.0-8.3 x10*3/uL Imm Gran Abs Auto 0.01 0.00-0.03 X10*3/uL Lymphocytes Absolute Auto 2.1 1.2-4.9 X10*3/uL Monocytes Absolute Auto 0.7 0.1-1.2 X10*3/uL Eosinophils Absolute Auto 0.2 0.0-0.4 X10*3/uL Basophils Absolute Auto 0.0 0.0-0.2 X10*3/uL NRBC Abs Auto 0.000 0.0-0.012 X10*3/uL Basic Metabolic Panel Reviewed date:03/02/2024 08:44:57 PM Interpretation: Performing Lab:[facility], [address] [place] [phone] Notes/Report: Sodium 140 135-145 mmol/L Potassium 4.4 3.3-5.1 mmol/L Chloride 105 96-108 mmol/L Carbon Dioxide 24 22-29 mmol/L Anion Gap 15 12-20 Blood Urea Nitrogen 85 9-16 mg/dL Creatinine 7.79 0.5-1.4 mg/dL Initial critical Creatinine result previously called (meets [facility] ADA critical value policy standard). Creatinine Clr Calc Pharmacy 9.6 eGFR (calculated from the MDRD study equation) and eCrCl (calculated from the Cockcroft-Gault equation) are based on different parameters and may not yield comparable results. If eCrCl result is absurd, please check patient's height/weight. Estimated Glomerular Filt Rate 7 NOTE: For -Dutch individuals, multiply the result by 1.210. Chronic Kidney Disease: Estimated GFR < 60 mL/min/1.73m2 Severe Kidney Disease: Estimated GFR < 15 mL/min/1.73m2 Glucose Random 111 60-115 mg/dL Calcium 8.2 8.4-10.2 mg/dL Glucose, Whole Blood Reviewed date:03/02/2024 08:44:57 PM Interpretation: Performing Lab:[address] [phone] Notes/Report: Glucose, Whole Blood 108 60-115 mg/dL METER # : [id number] Glucose, Whole Blood Reviewed date:03/02/2024 08:44:57 PM Interpretation: Performing Lab:[facility], [address] [place] [phone] Notes/Report: Glucose, Whole Blood 158 60-115 mg/dL METER # : [id number] Glucose, Whole Blood Reviewed date:03/02/2024 08:44:57 PM Interpretation: Performing Lab:[facility], [address] [place] [phone] Notes/Report: Glucose, Whole Blood 127 60-115 mg/dL METER # : [id number] Glucose, Whole Blood Reviewed date:03/02/2024 08:44:57 PM Interpretation: Performing Lab:[facility], [address] [place] [phone] Notes/Report: Glucose, Whole Blood 145 60-115 mg/dL METER # : [id number] Complete Blood Count no Diff Reviewed date:03/02/2024 08:44:57 PM Interpretation: Performing Lab:[facility], [address] [place] [phone] Notes/Report: White Blood Count 6.4 4.8-10.8 X10*3/uL Red Blood Count 2.38 4.60-5.80 X10*6/uL Hemoglobin 7.1 14.0-18.0 g/dl Hematocrit 21.7 42.0-52.0 % Mean Corpuscular Volume 91.2 80.0-98.0 fL Mean Corpuscular Hemoglobin 29.8 27.0-33.0 pg Mean Corpuscular HGB Conc 32.7 31.0-36.0 g/dl Red Cell Distribution Width 14.2 11.0-16.0 % Platelet Count 111 160-400 X10*3/uL Mean Platelet Volume 11.4 9.4-12.4 fL NRBC Pct Auto 0.0 0.0-0.2 /100WBC NRBC Abs Auto 0.000 0.0-0.012 X10*3/uL Basic Metabolic Panel Reviewed date:03/02/2024 08:44:57 PM Interpretation: Performing Lab:[address] [phone] Notes/Report: Sodium 141 135-145 mmol/L Potassium 3.8 3.3-5.1 mmol/L Chloride 101 96-108 mmol/L Carbon Dioxide 26 22-29 mmol/L Anion Gap 18 12-20 Blood Urea Nitrogen 83 9-16 mg/dL Creatinine 7.84 0.5-1.4 mg/dL Initial critical Creatinine result previously called (meets [facility] ADA critical value policy standard). Creatinine Clr Calc Pharmacy 9.6 eGFR (calculated from the MDRD study equation) and eCrCl (calculated from the Cockcroft-Gault equation) are based on different parameters and may not yield comparable results. If eCrCl result is absurd, please check patient's height/weight. Estimated Glomerular Filt Rate 7 NOTE: For -Dutch individuals, multiply the result by 1.210. Chronic Kidney Disease: Estimated GFR < 60 mL/min/1.73m2 Severe Kidney Disease: Estimated GFR < 15 mL/min/1.73m2 Glucose Random 106 60-115 mg/dL Calcium 8.0 8.4-10.2 mg/dL IRON PROFILE Reviewed date:03/02/2024 08:44:57 PM Interpretation: Performing Lab:[address] [phone] Notes/Report: Iron 76 45-160 mcg/dL Total Iron Binding Capacity 145 228-428 mcg/dL Percent Iron Saturation 52 15-50 % Unsaturated Iron Binding 69 Ferritin Reviewed date:03/02/2024 08:44:57 PM Interpretation: Performing Lab:[facility], [address] [place] [phone] Notes/Report: Ferritin 279 20-250 ng/mL Glucose, Whole Blood Reviewed date:03/02/2024 08:44:57 PM Interpretation: Performing Lab:[facility], [address] [place] [phone] Notes/Report: Glucose, Whole Blood 98 60-115 mg/dL METER # : [id number] Type and Screen Reviewed date:04/17/2024 03:55:19 PM Interpretation: Performing Lab:[facility], [address] [place] [phone] Notes/Report: Results at Issue Units as of 03/02/24 1202 ... Test View Group: Most Recent HGB HCT Results LABORATORY Date Time Test Result Flag Normal Range 03/02/24 0701 HGB 7.1 L 14.0-18.0 g/dl 03/02/24 0701 HCT 21.7 L 42.0-52.0 % give over 4 hours please Yes Blood Type OP Antibody Screen NEGATIVE Red Blood Cells Reviewed date:04/17/2024 03:55:09 PM Interpretation: Performing Lab:[facility], [address] [place] [phone] Notes/Report: Red Blood Cells [id number] OP RC Red Blood Cells TRANSFUSED 03/02/24 1202 Glucose, Whole Blood Reviewed date:03/02/2024 08:44:57 PM Interpretation: Performing Lab:[facility], [address] [place] [phone] Notes/Report: Glucose, Whole Blood 149 60-115 mg/dL METER # : [id number] Glucose, Whole Blood Reviewed date:03/02/2024 08:44:57 PM Interpretation: Performing Lab:[facility], [address] [place] [phone] Notes/Report: Glucose, Whole Blood 141 60-115 mg/dL METER # : [id number] Glucose, Whole Blood Reviewed date:03/02/2024 08:44:57 PM Interpretation: Performing Lab:[facility], [address] [place] [phone] Notes/Report: Glucose, Whole Blood 158 60-115 mg/dL METER # : [id number] Complete Blood Count no Diff Reviewed date:03/03/2024 09:48:25 AM Interpretation: Performing Lab:[facility], [address] [place] [phone] Notes/Report: White Blood Count 6.5 4.8-10.8 X10*3/uL Red Blood Count 2.58 4.60-5.80 X10*6/uL Hemoglobin 7.5 14.0-18.0 g/dl Hematocrit 22.6 42.0-52.0 % Mean Corpuscular Volume 87.6 80.0-98.0 fL Mean Corpuscular Hemoglobin 29.1 27.0-33.0 pg Mean Corpuscular HGB Conc 33.2 31.0-36.0 g/dl Red Cell Distribution Width 15.3 11.0-16.0 % Platelet Count 114 160-400 X10*3/uL Mean Platelet Volume 11.3 9.4-12.4 fL NRBC Pct Auto 0.0 0.0-0.2 /100WBC NRBC Abs Auto 0.000 0.0-0.012 X10*3/uL Prothrombin Time INR Reviewed date:03/03/2024 09:48:09 AM Interpretation: Performing Lab:[facility], [address] [place] [phone] Notes/Report: Prothrombin Time 13.2 11.1-13.3 SEC INTERNATIONAL NORM RATIO 1.1 0.9-1.1 INTERNATIONAL NORMALIZED RATIO (INR) REFERENCE RANGES Reference Range For patients not on anticoagulant therapy: 0.9 - 1.1 INR ranges for oral anticoagulant therapy: For prevention and treatment of venous thrombosis and pulmonary embolism: 2.0 - 3.0 For acute myocardial infarction with aspirin therapy: 2.0 - 3.0 For acute myocardial infarction without aspirin therapy: 3.0 - 4.0 For patients with mechanical prosthetic heart valves: 2.5 - 3.5 Partial Thromboplastin Time Reviewed date:03/03/2024 09:48:16 AM Interpretation: Performing Lab:[facility], [address] [place] [phone] Notes/Report: Partial Thromboplastin Time 29.3 26.0-36.8 SEC For information regarding the monitoring of direct thrombin inhibitors, please refer to Pharmacy. Basic Metabolic Panel Reviewed date:03/03/2024 09:45:43 AM Interpretation: Performing Lab:[address] [phone] Notes/Report: Sodium 141 135-145 mmol/L Potassium 3.5 3.3-5.1 mmol/L Chloride 99 96-108 mmol/L Carbon Dioxide 31 22-29 mmol/L Anion Gap 15 12-20 Blood Urea Nitrogen 80 9-16 mg/dL Creatinine 7.62 0.5-1.4 mg/dL Initial critical Creatinine result previously called (meets [facility] ADA critical value policy standard). Creatinine Clr Calc Pharmacy 9.9 eGFR (calculated from the MDRD study equation) and eCrCl (calculated from the Cockcroft-Gault equation) are based on different parameters and may not yield comparable results. If eCrCl result is absurd, please check patient's height/weight. Estimated Glomerular Filt Rate 7 NOTE: For -Dutch individuals, multiply the result by 1.210. Chronic Kidney Disease: Estimated GFR < 60 mL/min/1.73m2 Severe Kidney Disease: Estimated GFR < 15 mL/min/1.73m2 Glucose Random 105 60-115 mg/dL Calcium 7.8 8.4-10.2 mg/dL Glucose, Whole Blood Reviewed date:03/03/2024 09:48:02 AM Interpretation: Performing Lab:[address] [phone] Notes/Report: Glucose, Whole Blood 99 60-115 mg/dL METER # : [id number] Hepatitis B Profile Reviewed date:03/04/2024 11:56:16 AM Interpretation: Performing Lab:[address] [phone] Notes/Report: 3:15pm pt in jessie Bonner Hepatitis B Surface Antibody NONREACTIVE Nonreactive Nonreactive: < 8.00 mIU/mL Hepatitis B Core Antibody Nonreactive Nonreactive Hepatitis B Surface Antigen Negative Negative IR cvc insert central tunnel Reviewed date:06/11/2024 07:23:30 PM Interpretation: Performing Lab: Notes/Report: [facility] [address] [place] [address] Interventional Radiology Rpt Signed Patient: Woody Alfredo MR#: [id number] : 1955 Acct:[id number] Age/Sex: 68 / M ADM Date: 02/28/24 Loc: [facility] 471-[address]: Amanda HAMEED Ordering Physician: Ashli Hunter MD Date of Service: 03/03/24 Procedure(s): IR cvc insert central tunnel Accession Number(s): [id number] cc: Hilton Pepe MD; Ashli Hunter MD CLINICAL HISTORY: End-stage renal disease. The patient presents to interventional radiology for placement of a tunneled central venous catheter for hemodialysis. PROCEDURES: 1. Real-time ultrasound-guided access into the right internal jugular vein after documentation of selected vessel patency, and permanent imaging storing in the patient record. 2. Placement of a 14.5 fr 27 cm tunneled, dual-lumen hemodialysis catheter. Clinician: Haseeb Abreu PA-C MEDICATIONS: -Fentanyl 50 mcg, Lidocaine 1% 10 mL SQ. -Antibiotics: Ancef -For additional details, please see nursing flowsheet. COMPLICATIONS: None. ESTIMATED BLOOD LOSS: <5 ml SPECIMENS: None FLUOROSCOPY TIME: 1.4 min PROCEDURE NOTE: The procedure, risks, benefits, and alternatives were carefully explained to patient, and written informed consent was obtained. The patient was placed supine on the fluoroscopy table. A timeout was performed. The right neck and chest was prepped and draped in usual sterile fashion. Local anesthesia was administered to the access site with lidocaine. Under ultrasound guidance, the right internal jugular vein was accessed with a 5 Fr micropuncture set. A 0.035 in wire was advanced to the IVC to maintain access during the tunneling process. Next, subcutaneous lidocaine was administered to the chest. Using blunt dissection, a subcutaneous tunnel was created that connects from the upper chest to the venotomy site. The dialysis catheter was pulled through the tunnel. The tract in the vein was dilated and a peel-away sheath was advanced over the wire. The catheter was advanced through the sheath, which was subsequently peeled away. The catheter was tested, flushed, and sutured to the skin with its tip in the high right atrium. A permanent fluoroscopic image of the chest was saved to PACS. The catheter ports were packed with heparin per routine protocol. The patient was stable after the procedure and was transferred to the medical floor. FINDINGS: 1. Patent right internal jugular vein. 2. Placement of a tunneled, dual-lumen hemodialysis catheter as above. 3. Catheter flushes and aspirates very well with a 10 mL syringe. No pneumothorax. IR/IR cvc insert central tunnel IMPRESSION: Placement of a tunneled hemodialysis catheter in the right internal jugular vein. PLAN: -The catheter may be used immediately. This procedure was performed by Haseeb Abreu PA-C, and directly supervised by Dr. Macedo. Electronically signed by: Randall Macedo MD 03/13/2024 12:31 PM EDT Dictated By: Haseeb Abrue Signed By: <Electronically signed by Haseeb Abreu in [place]> 03/13/24 1231 <Electronically signed by Randall Macedo MD in [place]> 06/11/24 1156 DD/ 4 TD/TT: 03/03/24944 Asp Web Developer: [place] [id number] Interventional Radiology Rpt Signed Patient: Woody Alfredo MR#: [id number] : 1955 Acct:[id number] Age/Sex: 68 / M ADM Date: 02/28/24 Loc: [facility] 471-[address]: Tara HAMEED Ordering Physician: Ashli Hunter MD Date of Service: 03/03/24 Procedure(s): IR cvc insert central tunnel Accession Number(s): [id number] cc: Hilton Pepe MD; Ashli Hunter MD CLINICAL HISTORY: End-stage renal disease. The patient presents to interventional radiology for placem ent of a tunneled central venous catheter for hemodialysis. PROCEDURES: 1. Real-time ultrasound-guided access into the right internal jugular vein after documentation of selected vessel patency, and permanent imaging storing in t he patient record. 2. Placement of a 14 .5 fr 27 cm tunneled, dual-lumen hemodialysis catheter. Clinician: Haseeb Abreu PA-C MEDICATIONS: -Fentanyl 50 mcg, Lidocaine 1% 10 mL SQ. -Antibiotics: Ancef -For additional details, please see nursing flowsheet. COMPLICATIONS: None. ESTIMATED BLOOD LOSS : <5 ml SPECIMENS: None FLUOROSCOPY TIME: 1. 4 min PROCEDURE NOTE: The procedure, risks , benefits, and alternatives were carefully explained to patient , and written informed consent was obtained. The patient was placed supine on the fluoroscopy table. A timeout was performed. The right neck and chest was prepped and draped in usual sterile fashion. Local anesthesia was administered to the access site with lidocaine. Under ultrasound guidance, the right internal jugular vein was accessed with a 5 Fr micropuncture set. A 0.035 in wire was advanced to the IVC to maintain access during the tunneling process. Next, subcutaneous lidocaine was administered to the chest. Using blunt dissection, a subcutaneous tunnel was created that connects from the upper chest to the venotomy site. T he dialysis catheter was pulled through the tunnel. The tract in the vei n was dilated and a peel-away sheath was advanced over the wire. The catheter was advanced through the sheath, which was subsequently peeled away. The catheter was tested, flushed, and sutured to the skin with its tip in the high right atrium. A permanent fluoroscopic image o f the chest was saved to PACS. The catheter ports were packed with heparin per routine protocol. The patient was stab le after the procedure and was transferred to the medical floor. FINDINGS: 1. Patent right internal jugular vein. 2. Placement of a tunneled, dual-lumen hemodialysis catheter as above. 3. Catheter flushes and aspirates very well with a 10 mL syringe. No pneumothorax. IR/IR cvc insert central tunnel IMPRESSION: Placement of a tunne led hemodialysis catheter in the right internal jugular vein. PLAN: -The catheter may be used immediately. This procedure was performed by Haseeb Abreu PA-C, and directly supervised by Dr. Macedo. Electronically derick d by: Randall Macedo MD 03/13/2024 12:31 PM EDT RP Dictated By: Haseeb Abreu Signed By: <Electronically signed by Haseeb Abreu in [place]> 03/13/24 1231 <Electronically sign ed by Randall Macedo MD in [place]> 06/11/24 1156 DD/ 4 TD/TT: 03/03/24944 Asp Web Developer: IR us guide venous access Reviewed date:06/11/2024 07:22:42 PM Interpretation: Performing Lab: Notes/Report: [place] [id number] Interventional Radiology Rpt Signed Patient: Woody Alfredo MR#: [id number] : 1955 Acct:[id number] Age/Sex: 68 / M ADM Date: 02/28/24 Loc: [facility] 471-[address]: Amanda HAMEED Ordering Physician: Ashli Hunter MD Date of Service: 03/03/24 Procedure(s): IR us guide venous access Accession Number(s): [id number] cc: Hilton Pepe MD; Ashli Hunter MD CLINICAL HISTORY: End-stage renal disease. The patient presents to interventional radiology for placement of a tunneled central venous catheter for hemodialysis. PROCEDURES: 1. Real-time ultrasound-guided access into the right internal jugular vein after documentation of selected vessel patency, and permanent imaging storing in the patient record. 2. Placement of a 14.5 fr 27 cm tunneled, dual-lumen hemodialysis catheter. Clinician: Haseeb Abreu PA-C MEDICATIONS: -Fentanyl 50 mcg, Lidocaine 1% 10 mL SQ. -Antibiotics: Ancef -For additional details, please see nursing flowsheet. COMPLICATIONS: None. ESTIMATED BLOOD LOSS: <5 ml SPECIMENS: None FLUOROSCOPY TIME: 1.4 min PROCEDURE NOTE: The procedure, risks, benefits, and alternatives were carefully explained to patient, and written informed consent was obtained. The patient was placed supine on the fluoroscopy table. A timeout was performed. The right neck and chest was prepped and draped in usual sterile fashion. Local anesthesia was administered to the access site with lidocaine. Under ultrasound guidance, the right internal jugular vein was accessed with a 5 Fr micropuncture set. A 0.035 in wire was advanced to the IVC to maintain access during the tunneling process. Next, subcutaneous lidocaine was administered to the chest. Using blunt dissection, a subcutaneous tunnel was created that connects from the upper chest to the venotomy site. The dialysis catheter was pulled through the tunnel. The tract in the vein was dilated and a peel-away sheath was advanced over the wire. The catheter was advanced through the sheath, which was subsequently peeled away. The catheter was tested, flushed, and sutured to the skin with its tip in the high right atrium. A permanent fluoroscopic image of the chest was saved to PACS. The catheter ports were packed with heparin per routine protocol. The patient was stable after the procedure and was transferred to the medical floor. FINDINGS: 1. Patent right internal jugular vein. 2. Placement of a tunneled, dual-lumen hemodialysis catheter as above. 3. Catheter flushes and aspirates very well with a 10 mL syringe. No pneumothorax. IR/IR us guide venous access IMPRESSION: Placement of a tunneled hemodialysis catheter in the right internal jugular vein. PLAN: -The catheter may be used immediately. This procedure was performed by Haseeb Abreu PA-C, and directly supervised by Dr. Macedo. Electronically signed by: Randall Macedo MD 03/13/2024 12:31 PM EDT Dictated By: Haseeb Abreu Signed By: <Electronically signed by Haseeb Abreu in [place]> 03/13/24 1231 <Electronically signed by Randall Macedo MD in [place]> 06/11/24 1156 DD/ 0900 TD/TT: 03/03/24 0945 Asp Web Developer: [place] [id number] Interventional Radiology Rpt Signed Patient: Woody Alfredo MR#: [id number] : 1955 Acct:[id number] Age/Sex: 68 / M ADM Date: 02/28/24 Loc: [facility] 471-[address]: Tara HAMEED Ordering Physician: Ashli Hunter MD Date of Service: 03/03/24 Procedure(s): IR us guide venous access Accession Number(s): [id number] cc: Hilton Pepe MD; Ashli Hunter MD CLINICAL HISTORY: End-stage renal disease. The patient presents to interventional radiology for placem ent of a tunneled central venous catheter for hemodialysis. PROCEDURES: 1. Real-time ultrasound-guided access into the right internal jugular vein after documentation of selected vessel patency, and permanent imaging storing in t he patient record. 2. Placement of a 14 .5 fr 27 cm tunneled, dual-lumen hemodialysis catheter. Clinician: Haseeb Abreu PA-C MEDICATIONS: -Fentanyl 50 mcg, Lidocaine 1% 10 mL SQ. -Antibiotics: Ancef -For additional details, please see nursing flowsheet. COMPLICATIONS: None. ESTIMATED BLOOD LOSS : <5 ml SPECIMENS: None FLUOROSCOPY TIME: 1. 4 min PROCEDURE NOTE: The procedure, risks , benefits, and alternatives were carefully explained to patient , and written informed consent was obtained. The patient was placed supine on the fluoroscopy table. A timeout was performed. The right neck and chest was prepped and draped in usual sterile fashion. Local anesthesia was administered to the access site with lidocaine. Under ultrasound guidance, the right internal jugular vein was accessed with a 5 Fr micropuncture set. A 0.035 in wire was advanced to the IVC to maintain access during the tunneling process. Next, subcutaneous lidocaine was administered to the chest. Using blunt dissection, a subcutaneous tunnel was created that connects from the upper chest to the venotomy site. T he dialysis catheter was pulled through the tunnel. The tract in the vei n was dilated and a peel-away sheath was advanced over the wire. The catheter was advanced through the sheath, which was subsequently peeled away. The catheter was tested, flushed, and sutured to the skin with its tip in the high right atrium. A permanent fluoroscopic image o f the chest was saved to PACS. The catheter ports were packed with heparin per routine protocol. The patient was stab le after the procedure and was transferred to the medical floor. FINDINGS: 1. Patent right internal jugular vein. 2. Placement of a tunneled, dual-lumen hemodialysis catheter as above. 3. Catheter flushes and aspirates very well with a 10 mL syringe. No pneumothorax. IR/IR us guide venous access IMPRESSION: Placement of a tunne led hemodialysis catheter in the right internal jugular vein. PLAN: -The catheter may be used immediately. This procedure was performed by Haseeb Abreu PA-C, and directly supervised by Dr. Macedo. Electronically derick d by: Randall Macedo MD 03/13/2024 12:31 PM EDT RP Dictated By: Haseeb Abreu Signed By: <Electronically signed by Haseeb Abreu in OV> 03/13/24 1231 <Electronically sign ed by Randall Macedo MD in OV> 06/11/24 1156 DD/ 0900 TD/TT: 03/03/24 0945 Asp Web Developer: Glucose, Whole Blood Reviewed date:03/03/2024 12:23:40 PM Interpretation: Performing Lab:[facility], [address] [place] [phone] Notes/Report: Glucose, Whole Blood 121 60-115 mg/dL METER # : [id number] Glucose, Whole Blood Reviewed date:03/03/2024 04:15:58 PM Interpretation: Performing Lab:[facility], [address] [place] [phone] Notes/Report: Glucose, Whole Blood 116 60-115 mg/dL METER # : [id number] Glucose, Whole Blood Reviewed date:03/04/2024 11:58:14 AM Interpretation: Performing Lab:[facility], [address] [place] [phone] Notes/Report: Glucose, Whole Blood 125 60-115 mg/dL METER # : [id number] Hold Lav - Possible Hematolo gy Reviewed date:03/04/2024 12:02:43 PM Interpretation: Performing Lab:[facility], [address] [place] [phone] Notes/Report: Hold Lav - Possible Hematology SEE NOTE Specimen will be held untested for 8 hours. Call Hematology if testing is desired. Basic Metabolic Panel Reviewed date:03/04/2024 11:54:58 AM Interpretation: Performing Lab:[facility], [address] [place] [phone] Notes/Report: Sodium 139 135-145 mmol/L Potassium 4.0 3.3-5.1 mmol/L Chloride 100 96-108 mmol/L Carbon Dioxide 31 22-29 mmol/L Anion Gap 12 12-20 Blood Urea Nitrogen 54 9-16 mg/dL Creatinine 6.10 0.5-1.4 mg/dL Initial critical Creatinine result previously called (meets [facility] – ADA critical value policy standard). Creatinine Clr Calc Pharmacy 12.3 eGFR (calculated from the MDRD study equation) and eCrCl (calculated from the Cockcroft-Gault equation) are based on different parameters and may not yield comparable results. If eCrCl result is absurd, please check patient's height/weight. Estimated Glomerular Filt Rate 9 NOTE: For -Dutch individuals, multiply the result by 1.210. Chronic Kidney Disease: Estimated GFR < 60 mL/min/1.73m2 Severe Kidney Disease: Estimated GFR < 15 mL/min/1.73m2 Glucose Random 102 60-115 mg/dL Calcium 8.4 8.4-10.2 mg/dL Glucose, Whole Blood Reviewed date:03/04/2024 11:54:27 AM Interpretation: Performing Lab:[facility], [address] [place] [phone] Notes/Report: Glucose, Whole Blood 77 60-115 mg/dL METER # : [id number] Glucose, Whole Blood Reviewed date:03/04/2024 11:54:20 AM Interpretation: Performing Lab:[facility], [address] [place] [phone] Notes/Report: Glucose, Whole Blood 141 60-115 mg/dL METER # : [id number] Glucose, Whole Blood Reviewed date:03/05/2024 02:39:08 PM Interpretation: Performing Lab:[facility], [address] [place] [phone] Notes/Report: Glucose, Whole Blood 109 60-115 mg/dL METER # : [id number] Glucose, Whole Blood Reviewed date:03/05/2024 02:39:02 PM Interpretation: Performing Lab:[facility], [address] [place] [phone] Notes/Report: Glucose, Whole Blood 130 60-115 mg/dL METER # : [id number] Glucose, Whole Blood Reviewed date:03/05/2024 02:38:56 PM Interpretation: Performing Lab:[facility], [address] [place] [phone] Notes/Report: Glucose, Whole Blood 79 60-115 mg/dL METER # : [id number] Glucose, Whole Blood Reviewed date:03/05/2024 02:38:49 PM Interpretation: Performing Lab:[facility], [address] [place] [phone] Notes/Report: Glucose, Whole Blood 137 60-115 mg/dL METER # : [id number] Glucose, Whole Blood Reviewed date:03/06/2024 09:54:09 AM Interpretation: Performing Lab:[facility], [address] [place] [phone] Notes/Report: Glucose, Whole Blood 134 60-115 mg/dL METER # : [id number] Glucose, Whole Blood Reviewed date:03/06/2024 09:54:01 AM Interpretation: Performing Lab:[facility], [address] [place] [phone] Notes/Report: Glucose, Whole Blood 133 60-115 mg/dL METER # : [id number] Glucose, Whole Blood Reviewed date:03/06/2024 09:53:52 AM Interpretation: Performing Lab:[facility], [address] [place] [phone] Notes/Report: Glucose, Whole Blood 87 60-115 mg/dL METER # : [id number] Glucose, Whole Blood Reviewed date:03/06/2024 12:01:26 PM Interpretation: Performing Lab:[facility], [address] [place] [phone] Notes/Report: Glucose, Whole Blood 127 60-115 mg/dL METER # : [id number] Glucose, Whole Blood Reviewed date:03/06/2024 05:06:30 PM Interpretation: Performing Lab:[facility], [address] [place] [phone] Notes/Report: Glucose, Whole Blood 136 60-115 mg/dL METER # : [id number] Creatinine Reviewed date:04/18/2024 09:42:28 AM Interpretation: Performing Lab:[facility], [address] [place] [phone] Notes/Report: Creatinine 3.31 0.5-1.4 mg/dL Creatinine Clr Calc Pharmacy 22.7 eGFR (calculated from the MDRD study equation) and eCrCl (calculated from the Cockcroft-Gault equation) are based on different parameters and may not yield comparable results. If eCrCl result is absurd, please check patient's height/weight. Estimated Glomerular Filt Rate 19 NOTE: For -Dutch individuals, multiply the result by 1.210. Chronic Kidney Disease: Estimated GFR < 60 mL/min/1.73m2 Severe Kidney Disease: Estimated GFR < 15 mL/min/1.73m2 Glucose, Whole Blood Reviewed date:04/17/2024 12:25:44 PM Interpretation: Performing Lab:[facility], [address] [place] [phone] Notes/Report: Glucose, Whole Blood 137 60-115 mg/dL METER # : [id number] Vancomycin Random Reviewed date:04/18/2024 09:42:28 AM Interpretation: Performing Lab:[facility], [address] [place] [phone] Notes/Report: Vancomycin Random 16.1 15-20 mcg/mL Blood Culture (First) Reviewed date:04/20/2024 09:18:52 AM Interpretation: Performing Lab:[facility], [address] [place] [phone] Notes/Report: Blood Culture (First) Results of Blood Culture gram stain sent by a secure message and confirmed by JIGNESH on 04/18/24 at 1359 by SHELDONMI. Blood Culture (First) Results of Blood Culture gram stain sent by a secure message and confirmed by JIGNESH on 04/18/24 at 1359 by GARRETT. Blood Culture (First) Results of Blood Culture gram stain sent by a secure message and confirmed by JIGNESH on 04/18/24 at 1359 by [facility]. Blood Culture (First) Results of Blood Culture gram stain sent by a secure message and confirmed by JIGNESH on 04/18/24 at 1359 by GARRETT. Blood Culture (First) Results of Blood Culture gram stain sent by a secure message and confirmed by JIGNESH on 04/18/24 at 1359 by GARRETT. Blood Culture (First) Results of Blood Culture gram stain sent by a secure message and confirmed by JIGNESH on 04/18/24 at 1359 by GARRETT. Blood Culture (First) Results of Blood Culture gram stain sent by a secure message and confirmed by JIGNESH on 04/18/24 at 1359 by ITALIA. Blood Culture (First) Results of Blood Culture gram stain sent by a secure message and confirmed by JIGNESH on 04/18/24 at 1359 by ITALIA. Blood Culture (First) Results of Blood Culture gram stain sent by a secure message and confirmed by JIGNESH on 04/18/24 at 1359 by ITALIA. Blood Culture (First) BC Positive/Drawn Results of Blood Culture gram stain sent by a secure message and confirmed by JIGNESH on 04/18/24 at 1359 by ITALIA. Blood Culture (First) 2 sets positive/2 sets drawn Results of Blood Culture gram stain sent by a secure message and confirmed by JIGNESH on 04/18/24 at 1359 by ITALIA. Blood Culture (First) GS - on external report Results of Blood Culture gram stain sent by a secure message and confirmed by JIGNESH on 04/18/24 at 1359 by ITALIA. Blood Culture (First) Gram-positive cocc i in clusters Results of Blood Culture gram stain sent by a secure message and confirmed by JIGNESH on 04/18/24 at 1359 by ITALIA. O:STAAUR Staphylococcus aureus Blood Culture (First) [facility] Results of Blood Culture gram stain sent by a secure message and confirmed by JIGNESH on 04/18/24 at 1359 by GARRETT. Blood Culture (First) ORG #1: Susceptibi lity testing of same organism(s) from Results of Blood Culture gram stain sent by a secure message and confirmed by JIGNESH on 04/18/24 at 1359 by GARRETT. Blood Culture (First) Refer [facility] Results of Blood Culture gram stain sent by a secure message and confirmed by JIGNESH on 04/18/24 at 1359 by GARRETT. Blood Culture (First) similar site will not be repeated within 4 days. Results of Blood Culture gram stain sent by a secure message and confirmed by JIGNESH on 04/18/24 at 1359 by ITALIA. Blood Culture (Second) Reviewed date:04/20/2024 09:18:52 AM Interpretation: Performing Lab:[facility], [address] [place] [phone] Notes/Report: Blood Culture (Second) Results of Blood Culture gram stain sent by a secure message and confirmed by JIGNESH on 04/18/24 at 1501 by ITALIA. Blood Culture (Second) Results of Blood Culture gram stain sent by a secure message and confirmed by JIGNESH on 04/18/24 at 1501 by ITALIA. Blood Culture (Second) Results of Blood Culture gram stain sent by a secure message and confirmed by JIGNESH on 04/18/24 at 1501 by ITALAI. Blood Culture (Second) Results of Blood Culture gram stain sent by a secure message and confirmed by JIGNESH on 04/18/24 at 1501 by ITALIA. Blood Culture (Second) Results of Blood Culture gram stain sent by a secure message and confirmed by JIGNESH on 04/18/24 at 1501 by ITALIA. Blood Culture (Second) Results of Blood Culture gram stain sent by a secure message and confirmed by JIGNESH on 04/18/24 at 1501 by ITALIA. Blood Culture (Second) Results of Blood Culture gram stain sent by a secure message and confirmed by JIGNESH on 04/18/24 at 1501 by ITALIA. Blood Culture (Second) Results of Blood Culture gram stain sent by a secure message and confirmed by JIGNESH on 04/18/24 at 1501 by GARRETT. Blood Culture (Second) Results of Blood Culture gram stain sent by a secure message and confirmed by JIGNESH on 04/18/24 at 1501 by ITALIA. Blood Culture (Second) BC Positive/Drawn Results of Blood Culture gram stain sent by a secure message and confirmed by JIGNESH on 04/18/24 at 1501 by ITALIA. Blood Culture (Second) 2 sets positive/2 sets drawn Results of Blood Culture gram stain sent by a secure message and confirmed by JIGNESH on 04/18/24 at 1501 by ITALIA. Blood Culture (Second) GS - on external report Results of Blood Culture gram stain sent by a secure message and confirmed by JIGNESH on 04/18/24 at 1501 by ITALIA. Blood Culture (Second) Gram-positive kemi ci in clusters Results of Blood Culture gram stain sent by a secure message and confirmed by JIGNESH on 04/18/24 at 1501 by ITALIA. O:STAAUR Staphylococcus aureus Blood Culture (Second) Refer [facility] Results of Blood Culture gram stain sent by a secure message and confirmed by JIGNESH on 04/18/24 at 1501 by ITALIA. Blood Culture (Second) ORG #1: Susceptib ility testing of same organism(s) from Results of Blood Culture gram stain sent by a secure message and confirmed by JIGNESH on 04/18/24 at 1501 by ITALIA. Blood Culture (Second) Refer [facility] Results of Blood Culture gram stain sent by a secure message and confirmed by JIGNESH on 04/18/24 at 1501 by ITALIA. Blood Culture (Second) similar site will not be repeated within 4 days. Results of Blood Culture gram stain sent by a secure message and confirmed by JIGNESH on 04/18/24 at 1501 by ITALIA. US abdomen complete Reviewed date:04/18/2024 09:42:28 AM Interpretation: Performing Lab: Notes/Report: [place] [address] Ultrasound Report Signed Patient: Woody Alfredo MR#: [id number] : 1955 Acct:[id number] Age/Sex: 68 / M ADM Date: 04/17/24 Loc: [facility] 469-[address]: Amanda HAMEED Ordering Physician: Antoine Schaffer MD Date of Service: 04/17/24 Procedure(s): US abdomen complete Accession Number(s): [id number] cc: Antoine Schaffer MD; Hilton Pepe MD EXAMINATION: US ABDOMEN COMPLETE CLINICAL INFORMATION: Transaminitis. COMPARISON: Most recent CT abdomen/pelvis dated 02/28/2024. TECHNIQUE: Real-time imaging of the abdominal viscera. FINDINGS: PANCREAS: Not seen due to overlying bowel gas. ABDOMINAL AORTA: The proximal aorta is unremarkable without dilatation. The mid and distal aorta are not well seen. INFERIOR VENA CAVA: Unremarkable proximal inferior vena cava. Mid and distal inferior vena cava not well seen. LIVER: Partially visualized and grossly unremarkable. No visualized intrahepatic ductal dilatation or pancreatic lesion. GALLBLADDER: Layering sludge versus stones within the gallbladder lumen. No wall thickening or pericholecystic free fluid to suggest acute cholecystitis. COMMON BILE DUCT: Normal in caliber measuring 0.5 cm in diameter. RIGHT KIDNEY: Increased renal parenchymal echogenicity. No hydronephrosis. No renal calculi or focal parenchymal lesions. The kidney measures 10.7 cm in maximum dimension. LEFT KIDNEY: Increased renal parenchymal echogenicity. No hydronephrosis. No renal calculi. Simple right upper pole cyst measuring 0.9 cm. Findings are not clinically significant and no dedicated follow-up imaging is recommended. The kidney measures 8.8 cm in maximum dimension. SPLEEN: Unremarkable. The spleen measures 11.8 cm in maximum dimension. FREE FLUID: None. BLADDER: Distended urinary bladder with a bladder volume of 1419.36 mL. No wall thickening or associated mass. US/US abdomen complete IMPRESSION: 1. Increased renal parenchymal echogenicity, which can be seen in the setting of medical renal disease. No hydronephrosis or nephrolithiasis. 2. Cholelithiasis without evidence of acute cholecystitis. 3. Distended urinary bladder with a volume of 1419.36 mL. No wall thickening or associated mass. Electronically signed by: Richard Prince MD 04/17/2024 08:46 PM EDT Dictated By: Richard Prince MD Signed By: <Electronically signed by Richard Prince MD in OV> 04/17/242045 DD/ 01 TD/TT: 04/17/241812 Asp Web Developer: [address] [address] Ultrasound Report Signed Patient: Woody Alfredo MR#: [id number] : 1955 Acct:[id number] Age/Sex: 68 / M ADM Date: 04/17/24 [place]: [facility] [place]: Tara HAMEED Ordering Physician: Antoine Schaffer MD Date of Service: 04/17/24 Procedure(s): US abdomen complete Accession Number(s): [id number] cc: Antoine Schaffer MD ; Hilton Pepe MD EXAMINATION: US ABDOMEN COMPLETE CLINICAL INFORMATION: Transaminitis. COMPARISON: Most recent CT abdomen/pelvis dated 02/28/2024. TECHNIQUE: Real-time imaging of the abdominal viscera. FINDINGS: PANCREAS: Not seen d ue to overlying bowel gas. ABDOMINAL AORTA: The proximal aorta is unremarkable without dilatation. The mid and distal aorta are not well seen. INFERIOR VENA CAVA: Unremarkable proximal inferior vena cava. Mid and distal inferior vena cava not well seen. LIVER: Partially visualized and grossly unremarkable. No visualized intrahepatic ductal dilatation or pancreatic lesion. GALLBLADDER: Layerin g sludge versus stones within the gallbladder lumen. No wall thickening or pericholecystic free fluid to suggest acute cholecystitis. COMMON BILE DUCT: Normal in caliber measuring 0.5 cm in diameter. RIGHT KIDNEY: Increa sed renal parenchymal echogenicity. No hydronephrosis. No renal calculi or focal parenchymal lesions. The kidney measures 10.7 cm in maximum dimension. LEFT KIDNEY: Increas ed renal parenchymal echogenicity. No hydronephrosis. No renal calculi. Simple right upper pole cyst measuring 0.9 cm. Findings are not clinically significant and no dedicated follow-up imaging is recommended. The kidney measures 8.8 cm in maximum dimension. SPLEEN: Unremarkable . The spleen measures 11.8 cm in maximum dimension. FREE FLUID: None. BLADDER: Distended urinary bladder with a bladder volume of 1419.36 mL. No wall thickening o r associated mass. US/US abdomen complete IMPRESSION: 1. Increased renal parenchymal echogenicity, which can be seen in the setting of medical renal disease. No hydronephrosis or nephrolithiasis. 2. Cholelithiasis without evidence of acute cholecystitis. 3. Distended urinary bladder with a volume of 1419.36 mL. No wall thickening or associated mass. Electronically derick d by: Richard Prince MD 04/17/2024 08:46 PM EDT RP Dictated By: Richard Prince MD Signed By: <Electronically signed by Richard Prince MD in OV> 04/17/242045 DD/ 01 TD/TT: 04/17/241812 Asp Web Developer: Glucose, Whole Blood Reviewed date:04/18/2024 09:42:28 AM Interpretation: Performing Lab:[facility], [address] [place] [phone] Notes/Report: Glucose, Whole Blood 114 60-115 mg/dL METER # : [id number] Glucose, Whole Blood Reviewed date:04/18/2024 09:42:28 AM Interpretation: Performing Lab:[facility], [address] [place] [phone] Notes/Report: Glucose, Whole Blood 126 60-115 mg/dL METER # : [id number] Complete Blood Count Auto Di ff Reviewed date:04/18/2024 09:42:28 AM Interpretation: Performing Lab:[facility], [address] [place] [phone] Notes/Report: White Blood Count 3.8 4.8-10.8 X10*3/uL Red Blood Count 2.50 4.60-5.80 X10*6/uL Hemoglobin 7.6 14.0-18.0 g/dl Hematocrit 23.1 42.0-52.0 % Mean Corpuscular Volume 92.4 80.0-98.0 fL Mean Corpuscular Hemoglobin 30.4 27.0-33.0 pg Mean Corpuscular HGB Conc 32.9 31.0-36.0 g/dl Red Cell Distribution Width 15.3 11.0-16.0 % Platelet Count 96 160-400 X10*3/uL Mean Platelet Volume 11.8 9.4-12.4 fL Neutrophils Percent Auto 58.6 45-73 % Imm Gran Pct Auto 0.3 0.0-0.4 % Lymphocytes Percent Auto 26.7 20-40 % Monocytes Percent Auto 12.8 2-11 % Eosinophils Percent Auto 1.3 0-4 % Basophils Percent Auto 0.3 0-2 % NRBC Pct Auto 0.0 0.0-0.2 /100WBC Neutrophils Absolute Auto 2.2 2.0-8.3 x10*3/uL Imm Gran Abs Auto 0.01 0.00-0.03 X10*3/uL Lymphocytes Absolute Auto 1.0 1.2-4.9 X10*3/uL Monocytes Absolute Auto 0.5 0.1-1.2 X10*3/uL Eosinophils Absolute Auto 0.1 0.0-0.4 X10*3/uL Basophils Absolute Auto 0.0 0.0-0.2 X10*3/uL NRBC Abs Auto 0.000 0.0-0.012 X10*3/uL Erythrocyte Sedimentation Ra te Reviewed date:04/18/2024 12:39:33 PM Interpretation: Performing Lab:[address] [phone] Notes/Report: Erythrocyte Sedimentation Rate 18 0-15 MM/HR Patients with polycythemia and many hemoglobin abnormalities may have depressed sed rates whereas patients with anemia may have elevated sed rates. Comprehensive Met. Panel Reviewed date:04/18/2024 12:39:33 PM Interpretation: Performing Lab:[address] [phone] Notes/Report: Sodium 137 135-145 mmol/L Potassium 3.4 3.3-5.1 mmol/L Chloride 100 96-108 mmol/L Carbon Dioxide 28 22-29 mmol/L Anion Gap 12 12-20 Blood Urea Nitrogen 43 9-16 mg/dL Creatinine 4.56 0.5-1.4 mg/dL Critical creatinine sent by a secure message and confirmed by Amanda hirsch 04/18/24 0726 Tech: mangonje Creatinine Clr Calc Pharmacy 16.5 eGFR (calculated from the MDRD study equation) and eCrCl (calculated from the Cockcroft-Gault equation) are based on different parameters and may not yield comparable results. If eCrCl result is absurd, please check patient's height/weight. Estimated Glomerular Filt Rate 13 NOTE: For -Dutch individuals, multiply the result by 1.210. Chronic Kidney Disease: Estimated GFR < 60 mL/min/1.73m2 Severe Kidney Disease: Estimated GFR < 15 mL/min/1.73m2 Glucose Random 91 60-115 mg/dL Calcium 8.4 8.4-10.2 mg/dL Bilirubin Total 0.6 0.0-1.0 mg/dL Aspartate Amino Transferase 104 5-37 U/L Alanine Aminotransferase 104 0-40 U/L Total Protein 5.5 6.5-8.0 g/dL Albumin Level 3.1 3.5-5.0 g/dL Alkaline Phosphatase 77 39-117 U/L Phosphorus Reviewed date:04/18/2024 12:39:33 PM Interpretation: Performing Lab:[address] [address] Notes/Report: Phosphorus 2.9 2.7-4.5 mg/dL Magnesium Reviewed date:04/18/2024 12:39:33 PM Interpretation: Performing Lab:[address] [address] Notes/Report: Magnesium 2.0 1.6-2.6 mg/dL C Reactive Protein Reviewed date:04/18/2024 12:39:33 PM Interpretation: Performing Lab:[address] [address] Notes/Report: C Reactive Protein 12.36 < or = 0.50 mg/dL Glucose, Whole Blood Reviewed date:04/18/2024 09:42:28 AM Interpretation: Performing Lab:[address] [phone] Notes/Report: Glucose, Whole Blood 98 60-115 mg/dL METER # : [id number] XR hand LT 2V Reviewed date:04/20/2024 09:18:52 AM Interpretation: Performing Lab: Notes/Report: [address] [address] XRay Report Signed Patient: Woody Alfredo MR#: [id number] : 1955 Acct:[id number] Age/Sex: 68 / M ADM Date: 04/17/24 Loc: [facility] 469-[address]: Amanda HAMEED Ordering Physician: Amanda Hirsch Date of Service: 04/18/24 Procedure(s): XR hand LT 2V Accession Number(s): [id number] cc: Amanda Hirsch; Hilton Pepe MD EXAMINATION: XR HAND, LEFT CLINICAL INFORMATION: Middle finger wound COMPARISON: None available. TECHNIQUE: PA, lateral, and oblique views of the left hand. FINDINGS: Amputation of the distal middle finger including the tuft of the distal phalanx with cortical irregularity/erosion which could represent osteomyelitis. 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 Prominent vascular calcifications. XR/XR hand LT 2V IMPRESSION: Amputation of the distal middle finger including the tuft of the distal phalanx with cortical irregularity/erosion which could represent osteomyelitis. Electronically signed by: Dennys Palacios MD 04/18/2024 04:27 PM EDT RP Dictated By: Dennys Palacios MD Signed By: <Electronically signed by Dennys Palacios MD in OV> 04/18/24 1627 DD/ 1015 TD/TT: 04/18/24 1042 Asp Web Developer: CHEMA [place] [address] XRay Report Signed Patient: Woody Alfredo MR#: [id number] : 1955 Acct:[id number] Age/Sex: 68 / M ADM Date: 04/17/24 Loc: [facility] 469-[address]: Tara HAMEED Ordering Physician: Amanda Hirsch Date of Service: 04/18/24 Procedure(s): XR menchaca d LT 2V Accession Number(s): [id number] cc: Marylou Hirsch; Hilton Pepe MD EXAMINATION: XR HAND, LEFT CLINICAL INFORMATION: Middle finger wound COMPARISON: None available. TECHNIQUE: PA, lateral, and oblique views of the left hand. FINDINGS: Amputation of the distal middle finger including the tuft of the distal phalanx with cortica l irregularity/erosion which could represent osteomyelitis. Moder ate osteoarthritis at the junction of the lunate and capitate, the triscaphe articulation, and 1st CMC joint. Prominent vascular calcifications. XR/XR hand LT 2V IMPRESSION: Amputation of the distal middle finger including the tuft of the distal phalanx with cortica l irregularity/erosion which could represent osteomyelitis. Electronically derick d by: Dennys Palacios MD 04/18/2024 04:27 PM EDT RP Dictated By: Dennys Palacios MD Signed By: <Electronically signed by Dennys Palacios MD in OV> 04/18/24 1627 DD/ 1015 TD/TT: 04/18/24 1042 Asp Web Developer: CHEMA Glucose, Whole Blood Reviewed date:04/18/2024 12:39:33 PM Interpretation: Performing Lab:[facility], [address] [place] [phone] Notes/Report: Glucose, Whole Blood 130 60-115 mg/dL METER # : [id number] Glucose, Whole Blood Reviewed date:04/20/2024 09:18:52 AM Interpretation: Performing Lab:[facility], [address] [place] [phone] Notes/Report: Glucose, Whole Blood 130 60-115 mg/dL METER # : [id number] Glucose, Whole Blood Reviewed date:04/20/2024 09:18:52 AM Interpretation: Performing Lab:[facility], [address] [place] [phone] Notes/Report: Glucose, Whole Blood 132 60-115 mg/dL METER # : [id number] Creatinine Reviewed date:04/20/2024 09:18:52 AM Interpretation: Performing Lab:[facility], [address] [place] [phone] Notes/Report: JENNIE CAVAZOS Creatinine 3.30 0.5-1.4 mg/dL Creatinine Clr Calc Pharmacy 22.8 eGFR (calculated from the MDRD study equation) and eCrCl (calculated from the Cockcroft-Gault equation) are based on different parameters and may not yield comparable results. If eCrCl result is absurd, please check patient's height/weight. Estimated Glomerular Filt Rate 19 NOTE: For -Dutch individuals, multiply the result by 1.210. Chronic Kidney Disease: Estimated GFR < 60 mL/min/1.73m2 Severe Kidney Disease: Estimated GFR < 15 mL/min/1.73m2 Glucose, Whole Blood Reviewed date:04/20/2024 09:18:52 AM Interpretation: Performing Lab:[facility], [address] [place] [phone] Notes/Report: Glucose, Whole Blood 92 60-115 mg/dL METER # : [id number] Vancomycin Random Reviewed date:04/20/2024 09:18:52 AM Interpretation: Performing Lab:[facility], [address] [place] [phone] Notes/Report: Vancomycin Random 10.9 15-20 mcg/mL Blood Culture (First) Reviewed date:04/24/2024 09:28:59 PM Interpretation: Performing Lab:[facility], [address] [place] [phone] Notes/Report: Blood Culture (First) No growth after 5 days. Blood Culture (Second) Reviewed date:04/24/2024 09:29:09 PM Interpretation: Performing Lab:[facility], [address] [place] [phone] Notes/Report: Blood Culture (Second) No growth after 5 days. Glucose, Whole Blood Reviewed date:04/20/2024 09:18:52 AM Interpretation: Performing Lab:[facility], [address] [place] [phone] Notes/Report: Glucose, Whole Blood 198 60-115 mg/dL METER # : [id number] Glucose, Whole Blood Reviewed date:04/20/2024 09:18:52 AM Interpretation: Performing Lab:[facility], [address] [place] [phone] Notes/Report: Glucose, Whole Blood 154 60-115 mg/dL METER # : [id number] Glucose, Whole Blood Reviewed date:04/20/2024 09:18:52 AM Interpretation: Performing Lab:[facility], [address] [place] [phone] Notes/Report: Glucose, Whole Blood 109 60-115 mg/dL METER # : [id number] Hold Lav - Possible Hematolo gy Reviewed date:04/20/2024 09:18:52 AM Interpretation: Performing Lab:[facility], [address] [place] [phone] Notes/Report: Hold Lav - Possible Hematology SEE NOTE Specimen will be held untested for 8 hours. Call Hematology if testing is desired. Basic Metabolic Panel Reviewed date:04/21/2024 10:52:15 AM Interpretation: Performing Lab:[facility], [address] [place] [phone] Notes/Report: Sodium 138 135-145 mmol/L Potassium 3.9 3.3-5.1 mmol/L Chloride 100 96-108 mmol/L Carbon Dioxide 26 22-29 mmol/L Anion Gap 16 12-20 Blood Urea Nitrogen 46 9-16 mg/dL Creatinine 5.18 0.5-1.4 mg/dL Initial critical Creatinine result previously called (meets [facility] ADA critical value policy standard). Creatinine Clr Calc Pharmacy 14.5 eGFR (calculated from the MDRD study equation) and eCrCl (calculated from the Cockcroft-Gault equation) are based on different parameters and may not yield comparable results. If eCrCl result is absurd, please check patient's height/weight. Estimated Glomerular Filt Rate 11 NOTE: For -Dutch individuals, multiply the result by 1.210. Chronic Kidney Disease: Estimated GFR < 60 mL/min/1.73m2 Severe Kidney Disease: Estimated GFR < 15 mL/min/1.73m2 Glucose Random 164 60-115 mg/dL Calcium 8.3 8.4-10.2 mg/dL Creatinine Reviewed date:04/20/2024 09:18:52 AM Interpretation: Performing Lab:[facility], [address] [place] [phone] Notes/Report: Creatinine 5.01 0.5-1.4 mg/dL Critical [CRE] sent by a secure message and confirmed by (INGRID PURDY, 04/20/24 AT 0742) Marry PRABHAKAR Creatinine Clr Calc Pharmacy 15.0 eGFR (calculated from the MDRD study equation) and eCrCl (calculated from the Cockcroft-Gault equation) are based on different parameters and may not yield comparable results. If eCrCl result is absurd, please check patient's height/weight. Estimated Glomerular Filt Rate 12 NOTE: For -Dutch individuals, multiply the result by 1.210. Chronic Kidney Disease: Estimated GFR < 60 mL/min/1.73m2 Severe Kidney Disease: Estimated GFR < 15 mL/min/1.73m2 Glucose, Whole Blood Reviewed date:04/20/2024 09:18:52 AM Interpretation: Performing Lab:[facility], [address] [place] [phone] Notes/Report: Glucose, Whole Blood 98 60-115 mg/dL METER # : [id number] Drug Screen Urine Reviewed date:04/21/2024 10:52:15 AM Interpretation: Performing Lab:[facility], [address] [place] [phone] Notes/Report: Opiate Screen Urine Not Detected Not Detect Opiate cut-off is 300 ng/mL. Positive results are unconfirmed and should not be used for non-medical purposes. Barbiturates, Urine Not Detected Not Detect Barbiturate cut-off is 200 ng/mL. Positive results are unconfirmed and should not be used for non-medical purposes. Phencyclidine Screen Urine Not Detected Not Detect Phencyclidine cut-off is 25 ng/mL. Positive results are unconfirmed and should not be used for non-medical purposes. Amphetamine Screen Urine Not Detected Not Detect Amphetamine cut-off is 1000 ng/mL. Positive results are unconfirmed and should not be used for non-medical purposes. Benzodiazepines Screen Urine Not Detected Not Detect Benzodiazepine cut-off is 200 ng/mL. Positive results are unconfirmed and should not be used for non-medical purposes. Cocaine Screen Urine Not Detected Not Detect Cocaine cut-off is 300 ng/mL. Positive results are unconfirmed and should not be used for non-medical purposes. Cannabinoid Screen Urine Not Detected Not Detect Cannabinoid cut-off is 50 ng/mL. Positive results are unconfirmed and should not be used for non-medical purposes. Methadone Screen, Urine Not Detected Not Detect ng/mL Methadone cut-off is 300 ng/mL. Positive results are unconfirmed and should not be used for non-medical purposes. Fentanyl, urine Not Detected Not Detect Fentanyl cut-off is 1 ng/mL. Positive results are unconfirmed and should not be used for non-medical purposes. Oxycodone Screen Urine Not Detected Not Detect ng/mL Oxycodone cut-off is 100 ng/mL. Positive results are unconfirmed and should not be used for non-medical purposes. Buprenorphine Scr Not Detected Not Detect ng/mL Buprenorphine cut-off is 5 ng/mL. Positive results are unconfirmed and should not be used for non-medical purposes. UA ClnCatch+Micro w/rflx Cul t Reviewed date:04/21/2024 10:52:15 AM Interpretation: Performing Lab:[address] [phone] Notes/Report: [id number] Urine, Clean Catch Color Urine Yellow Appearance Urine Clear PH 8.0 5.0-9.0 Glucose Urine UA 100 Negative mg/dL Urine Blood Negative Negative Specific [place] - Urine 1.010 1.005-1.025 Urine Protein 100 (2+) Neg-Trace mg/dL Urine Ketones Negative Negative mg/dL Nitrite Urine Negative Negative Leukocyte Esterase Urine Trace Negative RBC Urine 0-2 0-2 /HPF WBC Urine 0-5 0-5 /HPF Squamous Epithelial Cell Urine 3-5 0-2 /HPF Bacteria Urine None Seen None Seen Hyaline Casts Urine 3-5 0-2 /LPF Glucose, Whole Blood Reviewed date:04/21/2024 10:52:15 AM Interpretation: Performing Lab:[address] [phone] Notes/Report: Glucose, Whole Blood 158 60-115 mg/dL METER # : [id number] Glucose, Whole Blood Reviewed date:04/21/2024 10:52:15 AM Interpretation: Performing Lab:[address] [phone] Notes/Report: Glucose, Whole Blood 143 60-115 mg/dL METER # : [id number] Glucose, Whole Blood Reviewed date:04/21/2024 10:52:15 AM Interpretation: Performing Lab:[address] [phone] Notes/Report: Glucose, Whole Blood 122 60-115 mg/dL METER # : [id number] Complete Blood Count no Diff Reviewed date:04/21/2024 10:52:15 AM Interpretation: Performing Lab:[place] [address] [address] Notes/Report: White Blood Count 6.1 4.8-10.8 X10*3/uL Red Blood Count 2.87 4.60-5.80 X10*6/uL Hemoglobin 8.8 14.0-18.0 g/dl Hematocrit 26.7 42.0-52.0 % Mean Corpuscular Volume 93.0 80.0-98.0 fL Mean Corpuscular Hemoglobin 30.7 27.0-33.0 pg Mean Corpuscular HGB Conc 33.0 31.0-36.0 g/dl Red Cell Distribution Width 15.6 11.0-16.0 % Platelet Count 123 160-400 X10*3/uL Mean Platelet Volume 11.5 9.4-12.4 fL NRBC Pct Auto 0.0 0.0-0.2 /100WBC NRBC Abs Auto 0.000 0.0-0.012 X10*3/uL Creatinine Reviewed date:04/21/2024 10:52:15 AM Interpretation: Performing Lab:[address] [phone] Notes/Report: Creatinine 6.36 0.5-1.4 mg/dL Initial critical Creatinine result previously called (meets [facility] ADA critical value policy standard). Creatinine Clr Calc Pharmacy 11.8 eGFR (calculated from the MDRD study equation) and eCrCl (calculated from the Cockcroft-Gault equation) are based on different parameters and may not yield comparable results. If eCrCl result is absurd, please check patient's height/weight. Estimated Glomerular Filt Rate 9 NOTE: For -Dutch individuals, multiply the result by 1.210. Chronic Kidney Disease: Estimated GFR < 60 mL/min/1.73m2 Severe Kidney Disease: Estimated GFR < 15 mL/min/1.73m2 Glucose, Whole Blood Reviewed date:04/21/2024 10:52:15 AM Interpretation: Performing Lab:[address] [phone] Notes/Report: Glucose, Whole Blood 97 60-115 mg/dL METER # : [id number] IR cvc remov tunnel wo prt/p mp Reviewed date:06/12/2024 03:28:44 PM Interpretation: Performing Lab: Notes/Report: [address] [address] Interventional Radiology Rpt Signed Patient: Woody lAfredo MR#: [id number] : 1955 Acct:[id number] Age/Sex: 68 / M ADM Date: 04/17/24 Loc: HO.S3 379-[address]: Amanda HAMEED Ordering Physician: Ingrid Purdy NP Date of Service: 04/21/24 Procedure(s): 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 Patient no longer requires dialysis. Referring physician requests removal. The right chest was prepped and draped in routine sterile fashion. 1% lidocaine was used for local anesthesia. Using blunt dissection, the tunneled dialysis catheter was removed from the chest wall without complication. After hemostasis was obtained, a dry sterile dressing was applied. Patient tolerated the procedure well. 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 Patient no longer requires dialysis. Referring physician requests removal. The right chest was prepped and draped in routine sterile fashion. 1% lidocaine was used f or local anesthesia. Using blunt dissection, the tunneled dialysis catheter was removed from the chest wall without complication. After hemostasis was obtained, a dry sterile dressing was applied. Patient tolerated the procedure well. 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 Electronically derick d by: Randall Macedo MD 06/12/2024 01:21 PM [facility] Dictated By: Randall Macedo MD Signed By: <Electronically signed by Randall Macedo MD in OV> 06/12/24 1321 DD/ 1420 TD/TT: 04/22/24 1434 Asp Web Developer: Glucose, Whole Blood Reviewed date:04/23/2024 02:12:31 PM Interpretation: Performing Lab:[address] [address] Notes/Report: Glucose, Whole Blood 107 60-115 mg/dL METER # : [id number] Glucose, Whole Blood Reviewed date:04/23/2024 02:12:31 PM Interpretation: Performing Lab:[facility], [address] [place] [phone] Notes/Report: Glucose, Whole Blood 142 60-115 mg/dL METER # : [id number] Glucose, Whole Blood Reviewed date:04/23/2024 02:12:31 PM Interpretation: Performing Lab:[facility], [address] [place] [phone] Notes/Report: Glucose, Whole Blood 144 60-115 mg/dL METER # : [id number] Hold Lav - Possible Hematolo gy Reviewed date:04/23/2024 02:12:31 PM Interpretation: Performing Lab:[facility], [address] [place] [phone] Notes/Report: Hold Lav - Possible Hematology SEE NOTE Specimen will be held untested for 8 hours. Call Hematology if testing is desired. Creatinine Reviewed date:04/23/2024 02:12:31 PM Interpretation: Performing Lab:[facility], [address] [place] [phone] Notes/Report: Creatinine 7.15 0.5-1.4 mg/dL Initial critical Creatinine result previously called (meets [facility] ADA critical value policy standard). Creatinine Clr Calc Pharmacy 10.5 eGFR (calculated from the MDRD study equation) and eCrCl (calculated from the Cockcroft-Gault equation) are based on different parameters and may not yield comparable results. If eCrCl result is absurd, please check patient's height/weight. Estimated Glomerular Filt Rate 8 NOTE: For -Dutch individuals, multiply the result by 1.210. Chronic Kidney Disease: Estimated GFR < 60 mL/min/1.73m2 Severe Kidney Disease: Estimated GFR < 15 mL/min/1.73m2 Glucose, Whole Blood Reviewed date:04/23/2024 02:12:31 PM Interpretation: Performing Lab:[facility], [address] [place] [phone] Notes/Report: Glucose, Whole Blood 102 60-115 mg/dL METER # : [id number] Vancomycin Random Reviewed date:04/23/2024 02:12:31 PM Interpretation: Performing Lab:[facility], [address] [place] [phone] Notes/Report: Vancomycin Random 10.1 15-20 mcg/mL Catheter Tip Culture Reviewed date:04/27/2024 05:11:32 PM Interpretation: Performing Lab:[facility], [address] [place] [phone] Notes/Report: Catheter Tip Culture No growth after 3 days. Glucose, Whole Blood Reviewed date:04/23/2024 02:12:31 PM Interpretation: Performing Lab:[facility], [address] [place] [phone] Notes/Report: Glucose, Whole Blood 128 60-115 mg/dL METER # : [id number] Glucose, Whole Blood Reviewed date:04/23/2024 02:12:31 PM Interpretation: Performing Lab:[facility], [address] [place] [phone] Notes/Report: Glucose, Whole Blood 114 60-115 mg/dL METER # : [id number] Glucose, Whole Blood Reviewed date:04/23/2024 02:12:31 PM Interpretation: Performing Lab:[facility], [address] [place] [phone] Notes/Report: Glucose, Whole Blood 144 60-115 mg/dL METER # : [id number] Hold Lav - Possible Hematolo gy Reviewed date:04/23/2024 02:12:31 PM Interpretation: Performing Lab:[facility], [address] [place] [phone] Notes/Report: Hold Lav - Possible Hematology SEE NOTE Specimen will be held untested for 8 hours. Call Hematology if testing is desired. Creatinine Reviewed date:04/23/2024 02:12:31 PM Interpretation: Performing Lab:[facility], [address] [place] [phone] Notes/Report: Creatinine 5.49 0.5-1.4 mg/dL Initial critical Creatinine result previously called (meets [facility] ADA critical value policy standard). Creatinine Clr Calc Pharmacy 13.7 eGFR (calculated from the MDRD study equation) and eCrCl (calculated from the Cockcroft-Gault equation) are based on different parameters and may not yield comparable results. If eCrCl result is absurd, please check patient's height/weight. Estimated Glomerular Filt Rate 10 NOTE: For -Dutch individuals, multiply the result by 1.210. Chronic Kidney Disease: Estimated GFR < 60 mL/min/1.73m2 Severe Kidney Disease: Estimated GFR < 15 mL/min/1.73m2 Glucose, Whole Blood Reviewed date:04/23/2024 02:12:31 PM Interpretation: Performing Lab:[facility], [address] [place] [phone] Notes/Report: Glucose, Whole Blood 90 60-115 mg/dL METER # : [id number] Glucose, Whole Blood Reviewed date:04/23/2024 02:12:31 PM Interpretation: Performing Lab:[facility], [address] [place] [phone] Notes/Report: Glucose, Whole Blood 148 60-115 mg/dL METER # : [id number] Glucose, Whole Blood Reviewed date:04/23/2024 06:40:00 PM Interpretation: Performing Lab:[facility], [address] [place] [phone] Notes/Report: Glucose, Whole Blood 141 60-115 mg/dL METER # : [id number] Glucose, Whole Blood Reviewed date:04/24/2024 09:25:04 PM Interpretation: Performing Lab:[facility], [address] [place] [phone] Notes/Report: Glucose, Whole Blood 149 60-115 mg/dL METER # : [id number] Hold Lav - Possible Hematolo gy Reviewed date:04/24/2024 09:24:48 PM Interpretation: Performing Lab:[facility], [address] [place] [phone] Notes/Report: Hold Lav - Possible Hematology SEE NOTE Specimen will be held untested for 8 hours. Call Hematology if testing is desired. Creatinine Reviewed date:04/24/2024 09:24:57 PM Interpretation: Performing Lab:[facility], [address] [place] [phone] Notes/Report: Creatinine 6.33 0.5-1.4 mg/dL Initial critical Creatinine result previously called (meets [facility] ADA critical value policy standard). Creatinine Clr Calc Pharmacy 11.9 eGFR (calculated from the MDRD study equation) and eCrCl (calculated from the Cockcroft-Gault equation) are based on different parameters and may not yield comparable results. If eCrCl result is absurd, please check patient's height/weight. Estimated Glomerular Filt Rate 9 NOTE: For -Dutch individuals, multiply the result by 1.210. Chronic Kidney Disease: Estimated GFR < 60 mL/min/1.73m2 Severe Kidney Disease: Estimated GFR < 15 mL/min/1.73m2 Glucose, Whole Blood Reviewed date:04/24/2024 09:19:17 PM Interpretation: Performing Lab:[facility], [address] [place] [phone] Notes/Report: Glucose, Whole Blood 94 60-115 mg/dL METER # : [id number] IR cvc insert central tunnel Reviewed date:05/27/2024 08:14:49 PM Interpretation: Performing Lab: Notes/Report: [address] [address] Interventional Radiology Rpt Signed Patient: Woody Alfredo MR#: [id number] : 1955 Acct:[id number] Age/Sex: 68 / M ADM Date: 04/17/24 Loc: .S3 379-[address]: Amanda HAMEED Ordering Physician: Ingrid Purdy NP Date of Service: 04/24/24 Procedure(s): IR cvc insert central tunnel Accession Number(s): [id number] cc: Hilton Pepe MD; Ingrid Purdy NP CLINICAL HISTORY: End-stage renal disease. The patient presents to interventional radiology for placement of a tunneled central venous catheter for hemodialysis. PROCEDURES: 1. Real-time ultrasound-guided access into the right internal jugular vein after documentation of selected vessel patency, and permanent imaging storing in the patient record. 2. Placement of a 14.5 fr 27 cm tunneled, dual-lumen hemodialysis catheter. Clinician: Haseeb Abreu PA-C MEDICATIONS: -Fentanyl 25 mcg, Lidocaine 1% 10 mL SQ. -Antibiotics: None -For additional details, please see nursing flowsheet. COMPLICATIONS: None. ESTIMATED BLOOD LOSS: <5 ml SPECIMENS: None FLUOROSCOPY TIME: 0.7 min PROCEDURE NOTE: The procedure, risks, benefits, and alternatives were carefully explained to patient, and written informed consent was obtained. The patient was placed supine on the fluoroscopy table. A timeout was performed. The right neck and chest was prepped and draped in usual sterile fashion. Local anesthesia was administered to the access site with lidocaine. Under ultrasound guidance, the right internal jugular vein was accessed with a 5 Fr micropuncture set. A 0.035 in wire was advanced to the IVC to maintain access during the tunneling process. Next, subcutaneous lidocaine was administered to the chest. Using blunt dissection, a subcutaneous tunnel was created that connects from the upper chest to the venotomy site. The dialysis catheter was pulled through the tunnel. The tract in the vein was dilated and a peel-away sheath was advanced over the wire. The catheter was advanced through the sheath, which was subsequently peeled away. The catheter was tested, flushed, and sutured to the skin with its tip in the high right atrium. A permanent fluoroscopic image of the chest was saved to PACS. The catheter ports were packed with heparin per routine protocol. The patient was stable after the procedure and was transferred back to the medical floor. FINDINGS: 1. Patent right internal jugular vein. 2. Placement of a tunneled, dual-lumen hemodialysis catheter as above. 3. Catheter flushes and aspirates very well with a 10 mL syringe. No pneumothorax. IR/IR cvc insert central tunnel IMPRESSION: Placement of a tunneled hemodialysis catheter in the right internal jugular vein. PLAN: -The catheter may be used immediately. This procedure was performed by Haseeb Abreu PA-C, and directly supervised by Dr. Manrique. Electronically signed by: Shree Gutierrez MD 05/05/2024 02:33 PM EDT RP Dictated By: Haseeb Abreu Signed By: <Electronically signed by Haseeb Abreu in OV> 05/05/24 1433 <Electronically signed by Shree Gutierrez MD in OV> 05/05/24 1436 DD/ 1151 TD/TT: 04/24/24 1151 Asp Web Developer: [place] [address] Interventional Radiology Rpt Signed Patient: Woody Alfredo MR#: [id number] : 1955 Acct:[id number] Age/Sex: 68 / M ADM Date: 04/17/24 Loc: .S3 379-[address]: Tara HAMEED Ordering Physician: Ingrid Purdy NP Date of Service: 04/24/24 Procedure(s): IR cvc insert central tunnel Accession Number(s): [id number] cc: Hilton Pepe MD; Ingrid Purdy NP CLINICAL HISTORY: End-stage renal disease. The patient presents to interventional radiology for placem ent of a tunneled central venous catheter for hemodialysis. PROCEDURES: 1. Real-time ultrasound-guided access into the right internal jugular vein after documentation of selected vessel patency, and permanent imaging storing in t he patient record. 2. Placement of a 14 .5 fr 27 cm tunneled, dual-lumen hemodialysis catheter. Clinician: Haseeb Abreu PA-C MEDICATIONS: -Fentanyl 25 mcg, Lidocaine 1% 10 mL SQ. -Antibiotics: None -For additional details, please see nursing flowsheet. COMPLICATIONS: None. ESTIMATED BLOOD LOSS : <5 ml SPECIMENS: None FLUOROSCOPY TIME: 0. 7 min PROCEDURE NOTE: The procedure, risks , benefits, and alternatives were carefully explained to patient , and written informed consent was obtained. The patient was placed supine on the fluoroscopy table. A timeout was performed. The right neck and chest was prepped and draped in usual sterile fashion. Local anesthesia was administered to the access site with lidocaine. Under ultrasound guidance, the right internal jugular vein was accessed with a 5 Fr micropuncture set. A 0.035 in wire was advanced to the IVC to maintain access during the tunneling process. Next, subcutaneous lidocaine was administered to the chest. Using blunt dissection, a subcutaneous tunnel was created that connects from the upper chest to the venotomy site. T he dialysis catheter was pulled through the tunnel. The tract in the vei n was dilated and a peel-away sheath was advanced over the wire. The catheter was advanced through the sheath, which was subsequently peeled away. The catheter was tested, flushed, and sutured to the skin with its tip in the high right atrium. A permanent fluoroscopic image o f the chest was saved to PACS. The catheter ports were packed with heparin per routine protocol. The patient was stab le after the procedure and was transferred back to the medical floor. FINDINGS: 1. Patent right internal jugular vein. 2. Placement of a tunneled, dual-lumen hemodialysis catheter as above. 3. Catheter flushes and aspirates very well with a 10 mL syringe. No pneumothorax. IR/IR cvc insert central tunnel IMPRESSION: Placement of a tunne led hemodialysis catheter in the right internal jugular vein. PLAN: -The catheter may be used immediately. This procedure was performed by Haseeb Abreu PA-C, and directly supervised by Dr. Manrique. Electronically derick d by: Shree Gutierrez MD 05/05/2024 02:33 PM EDT Dictated By: Haseeb Abreu Signed By: <Electronically signed by Haseeb Abreu in OV> 05/05/24 1433 <Electronically sign ed by Shree Gutierrez MD in OV> 05/05/24 1436 DD/ 1151 TD/TT: 04/24/24 1151 Asp Web Developer: Glucose, Whole Blood Reviewed date:04/24/2024 09:13:02 PM Interpretation: Performing Lab:[facility], [address] [place] [phone] Notes/Report: Glucose, Whole Blood 148 60-115 mg/dL METER # : [id number] Hold Gold Reviewed date:08/22/2024 12:34:12 PM Interpretation: Performing Lab:[facility], [address] [place] [phone] Notes/Report: Hold Gold See Note Specimen held untested for 24 hours; Call to request Chemistry testing. Reason For Referral Reason Critical Creatine le migel 4.56 needs to be seen today or tomorrow Diagnosis 1 Creatinine elevation (R79.89) Referral Organization Hilton Pepe MD Referring Provider First Name Hilton Referring Provider Last Name My Referring Provider Speciality Internal edicine Referred Provider ARVIN BECK Referred Provider Specialty Nephrology General Notes Dede Bhakta 12:47:39 PM EDT > phone [phone] Annette 02/21/2024 02:54:02 PM EDT > patient is aware of the appt , Claudine Pittman 02/22/2024 11:29:46 AM EDT > OFFICE NOTE RECD Referral Priority Routine Referral Appointment Date 02/22/2024 Reason essential hypertenss ion CHF Diagnosis 1 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) Diagnosis 2 Essential hypertensi on (I10) Diagnosis 3 Unspecified systolic (congestive) heart failure (I50.20) Referral Organization Hilton Pepe MD Referring Provider First Name Hilton Referring Provider Last Name My Referring Provider Speciality Internal edicine Referred Provider CAMILLE TEMPLE Referred Provider Specialty Cardiology General Notes Dede Bhakta 10:37:04 AM EDT > info faxed , Dede Bhakta 03/20/2024 10:17:33 AM EDT > appt being worked on , Dede Bhakta 04/01/2024 02:19:08 PM EDT > patient will be put on a cancellation list patient is aware of appt Referral Priority Routine Referral Appointment Date 07/16/2024 Reason SCREEN FOR COLON CAN CER Diagnosis 1 Screen for colon can cer (Z12.11) Referral Organization Hilton Pepe MD Referring Provider First Name Hilton Referring Provider Last Name My Referring Provider Speciality Internal M edicine Referred Provider Nico Espinoza Referred Provider Specialty Gastroentero logy Referral Priority Routine Medications Medication SIG (Take, Route, Frequency, Duration) Notes Start Date End Date Status Clopidogrel Bisulfate 75 MG take 1 tablet by mouth every day Orally Once a day for 90 days Active metFORMIN HCl 500 MG TAKE 1 TABLET BY MO UTH TWICE DAILY WITH A MEAL Orally twice aday for 90 days Not-Taking Tamsulosin HCl 0.4 MG TAKE 1 CAPSULE BY MOUTH EVERY DAY for 90 Active OneTouch FinePoint Lancets - use to test blood sugar invitro DX e11.9 three times a day for 30 days 12/11/2019 Active Torsemide 10 MG take 1 tablet by joseph th every day as directed Orally Once a day for 90 days Not-Taking FreeStyle Lite Test - as directed In Vit ro 3 times a day for 90 days 11/30/2022 Active Molnupiravir 200 MG 4 capsules Orally ev yazan 12 hrs for 5 day(s) 01/25/2024 Not-Taking Aspirin 81 81 MG 1 tablet Orally Once a day for 30 day(s) Active Metoprolol Succinate ER 200 MG 1 tablet Orally Once a day Not-Taking OneTouch Ultra - use to test blood ochoa gar invitro DxE11.9 three times a day for 30 days 12/11/2019 Active amLODIPine Besylate 5 MG TAKE 1 TABLET B Y MOUTH EVERY DAY Not-Taking Famotidine 20 MG TAKE 1 TABLET BY JOSEPH TH DAILY AT BEDTIME NEEDED for 30 Active Finasteride 5 MG 1 tablet Orally Once a day for 30 day(s) Active levoFLOXacin 500 MG 1 tablet Orally Once a day for 10 days 09/05/2024 Active Atorvastatin Calcium 80 MG TAKE 1 TABLET BY MOUTH EVERY DAY for 90 Active Metoprolol Succinate ER 25 MG 1 tablet Orally Once a day for 30 days 08/28/2024 Active Magnesium Oxide 400 MG 1 tablet as neede d Orally Once a day for 90 days 08/17/2022 Not-Taking Metoprolol Succinate ER 100 MG 1 tablet Orally Once a day for 30 days 05/01/2024 Active Benzonatate 100 MG 1 capsule as needed Orally Three times a day for 10 days 07/18/2022 Not-Taking Immunizations Vaccine Route Administration Date Status Comme nts Fluarix Quadrivalent IM Intramuscular 03/27/2016 Administe red PPSV23 (Pnemovax) IM Intramuscular 12/16/2015 Administered pt was given the vaccine at [facility] with admission. Fluarix Quadrivalent IM Intramuscular 03/27/2017 Administe red Prevnar 13 IM Intramuscular 05/28/2017 Administered Fluarix Quadrivalent IM Intramuscular 04/01/2018 Administe red Fluarix Quadrivalent IM Intramuscular 03/11/2019 Administe red Influenza High Dose IM Intramuscular 03/19/2020 Administer ed PPSV23 (Pnemovax) IM Intramuscular 02/21/2021 Administered Influenza High Dose IM Intramuscular 03/18/2021 Administer ed SARS-COV-2 Moderna Unknown 10/29/2020 Administered SARS-COV-2 Moderna Unknown 11/27/2020 Administered SARS-COV-2 Moderna Unknown 07/04/2021 Administered Influenza High Dose IM Intramuscular 04/28/2022 Administer ed Influenza High Dose IM Intramuscular 03/19/2023 Administer ed Shingrix Unknown 02/04/2018 Refused Social History Tobacco Use: Social History Observation [...] Problem Status W/U Status Risk Notes Problem 637484450 Type 2 diabetes mellitus without complications (E11.9) Active confirmed Problem 295177362 Tubular adenoma (D36.9) Active confirmed Problem Hypomagnesemia (713661143) Hypomagnesemia (E83.42) Active confirmed Problem 762392319 Unspecified systolic (congestive) heart failure (I50.20) Active confirmed Problem 08123477 Essential hypertension (I10) Active confirmed Problem 539079926 Acute systolic heart failure (I50.21) Active confirmed Problem Polyneuropathy due to type 2 diabetes mellitus (323156757) Diabetic polyneuropathy associated with type 2 diabetes mellitus (E11.42) Active confirmed Problem 004921696 History of coronary artery stent placement (Z95.5) Active confirmed Problem 141767808 Vertigo (R42) Active confirmed Problem 73159412 Obstructive slee p apnea (G47.33) Active confirmed Problem 283599115 Acute right-side d thoracic back pain (M54.6) Active confirmed Problem 997997299 Vertebral osteomyelitis (M46.20) Active confirmed Problem 334130698 Sensitivity to sunlight (Z91.09) Active confirmed Problem 595152247 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) Active confirmed Problem 68998582 Hyperlipidemia, unspecified hyperlipidemia type (E78.5) Active confirmed Problem 381203874 BMI 32.0-32.9,adult (Z68.32) Active confirmed Problem 68288220 Chronic renal failure, stage 4 (severe) (N18.4) Active confirmed Problem 943731568 Stage 4 chronic kidney disease (N18.4) Active confirmed Problem 253183578 Vertebral artery disease (I77.9) Active confirmed Problem 98484183 High blood cholesterol (E78.00) Active confirmed Vital Signs Heart Rate 100 /min 05/01/2024 Blood pressure diastolic 64 mm Hg 10/03/2024 brody ght is up 2 pounds since 09-12-24 Height 72 in 10/03/2024 weight is up 2 pounds since 09-12-24 Blood pressure systolic 98 mm Hg 10/03/2024 brodyg ht is up 2 pounds since 09-12-24 Weight 205 lbs 10/03/2024 weight is up 2 pounds since 09-12-24 BMI 27.8 kg/m2 10/03/2024 weight is up 2 pounds since 09-12-24 Encounters Encounter Location Date Provider Diagnosis Hilton Pepe MD [address] [place], [place] [id number] 10/12/2023 Hilton Pepe Anemia D64.9 Hilton Pepe MD [address] [place] [address] Drive [address] [place] [id number] 02/21/2024 Hilton Pepe Blood tests for routine general physical examination Z00.00 ; Type 2 diabetes mellitus without complications E11.9 ; Essential hypertension I10 ; High blood cholesterol E78.00 ; Acute systolic heart failure I50.21 and Stage 4 chronic kidney disease N18.4 Hilton Pepe MD [address] [place] [id number] 08/22/2024 Hilton Pepe High blood cholester ol E78.00 Hilton Pepe MD [address] [place] [id number] 10/03/2024 Hilton Pepe Chronic renal failur e, stage 4 (severe) N18.4 ; Toe infection L08.9 and Essential hypertension I10 Hilton Pepe MD [address] [place] [id number] 12/21/2023 Hilton Pepe Type 2 diabetes mellitus without complications E11.9 and Unspecified systolic (congestive) heart failure I50.20 Hilton Pepe MD [address] [place] [id number] 01/25/2024 Hilton Pepe COVID-19 U07.1 Hilton Pepe MD [address] [place] [id number] 02/28/2024 Hilton Pepe Chronic renal failur e, stage 4 (severe) N18.4 ; Annual physical exam Z00.00 ; Type 2 diabetes mellitus without complications E11.9 ; Essential hypertension I10 and Pyuria R82.81 Hilton Pepe MD [address] [place] [id number] 03/13/2024 Hilton Pepe Heartburn R12 ; Chronic renal failure, stage 4 (severe) N18.4 ; Essential hypertension I10 ; Type 2 diabetes mellitus without complications E11.9 and Acute renal failure, unspecified acute renal failure type N17.9 Hilton Pepe MD [address] [place] [id number] 04/01/2024 Hilton Pepe Essential hypertensi on I10 ; Chronic renal failure, stage 4 (severe) N18.4 ; Acute systolic heart failure I50.21 and Diabetic polyneuropathy associated with type 2 diabetes mellitus E11.42 Hilton Pepe MD [address] [place] [id number] 05/01/2024 Hilton Pepe Type 2 diabetes mellitus without complications E11.9 ; Staphylococcal septicemia A41.2 ; Chronic renal failure, stage 5 N18.5 and Tachycardia R00.0 Hilton Pepe MD [address] [place] [id number] 05/15/2024 Hilton Pepe Type 2 diabetes mellitus without complications E11.9 and Orthostatic hypotension I95.1 Hilton Pepe MD [address] [place] [address] [id number] 08/28/2024 Hilton Pepe Essential hypertensi on I10 ; Stage 4 chronic kidney disease N18.4 ; History of coronary artery stent placement Z95.5 and Hypotension due to drugs I95.2 Hilton Pepe MD [address] [place] [address] [id number] 09/05/2024 Hilton Pepe Toe infection L08.9 ; Type 2 diabetes mellitus without complications E11.9 and Essential hypertension I10 Hilton Pepe MD [address] [place] [address] [id number] 09/12/2024 Hilton Pepe Toe infection L08.9 and Essential hypertension I10 Hilton Pepe MD [address] [place] [address] [id number] 10/29/2023 Hilton Pepe Type 2 diabetes mellitus without complications E11.9 Hilton Pepe MD [address] [place] [id number] 12/20/2023 Hilton Pepe MD [address] [place] [address] [id number] 02/21/2024 Hilton Pepe MD [address] [place] [address] [id number] 03/07/2024 Hilton Pepe MD [address] [place] [address] [id number] 03/11/2024 Hilton Pepe Vertebral artery disease I77.9 Assessments Encounter Date Diagnosis (ICD Code) Assessment Notes Treatment Notes Treatment Clinical Notes Section Notes 10/12/2023 Anemia (ICD-10 - D64.9) 02/21/2024 Blood tests for routine general physical examination (ICD-10 - Z00.00) 02/21/2024 Type 2 diabetes mellitus without complications (ICD-10 - E11.9) 08/22/2024 High blood cholesterol (ICD-10 - E78.00) 10/03/2024 Chronic renal failure, stage 4 (severe) (ICD-10 - N18.4) needs colonoscopy this summer to get transplant of kidney/ REFERRAL FAXED TO DR ESPINOZA PV GASTRO 12/21/2023 Type 2 diabetes mellitus without complications (ICD-10 - E11.9) stable, will continue curren regiment 12/21/2023 Unspecified systolic (congestive) heart failure (ICD-10 - I50.20) patient verbalized understanding to resume medication and directions for use. 01/25/2024 COVID-19 (ICD-10 - U07.1) patient verbalized understanding of medication and directions for use 02/28/2024 Chronic renal failure, stage 4 (severe) (ICD-10 - N18.4) is seeing rn surgery icu next week 02/28/2024 Annual physical exam (ICD-10 - Z00.00) 03/13/2024 Heartburn (ICD-10 - R12) 03/13/2024 Chronic renal failure, stage 4 (severe) (ICD-10 - N18.4) has worsened 04/01/2024 Essential hypertension (ICD-10 - I10) doing well, stable, will continue current regiment 04/01/2024 Chronic renal failure, stage 4 (severe) (ICD-10 - N18.4) going to dialysis 3 times per week and reports that his numbers are good but cr still high 05/01/2024 Type 2 diabetes mellitus without complications [...] 10 years ago but no pain there 05/15/2024 Type 2 diabetes mellitus without complications (ICD-10 - E11.9) doing well with good a1c and sugars are running well 05/15/2024 Orthostatic hypotension (ICD-10 - I95.1) is going to speak to the rn surgery icu next week about getting on a medicine to increase his bp 08/28/2024 Essential hypertension (ICD-10 - I10) 09/05/2024 Toe infection (ICD-10 - L08.9) 09/12/2024 Toe infection (ICD-10 - L08.9) showing signs of improvement 10/29/2023 Type 2 diabetes mellitus without complications (ICD-10 - E11.9) 03/11/2024 Vertebral artery disease (ICD-10 - I77.9) 02/21/2024 Essential hypertension (ICD-10 - I10) 10/03/2024 Toe infection (ICD-10 - L08.9) has resolved 02/28/2024 Type 2 diabetes mellitus without complications (ICD-10 - E11.9) had to stop the metformin due to renal faliure 03/13/2024 Essential hypertension (ICD-10 - I10) 04/01/2024 Acute systolic heart failure (ICD-10 - I50.21) Stable. Continue current regiment. 05/01/2024 Chronic renal failure, stage 5 (ICD-10 - N18.5) getting the ab after the dialysis so the ab stay in until next dose 08/28/2024 Stage 4 chronic kidney disease (ICD-10 - N18.4) undergoing dialysis treatment 09/05/2024 Type 2 diabetes mellitus without complications (ICD-10 - E11.9) doing well, will contnue current regiment 09/12/2024 Essential hypertension (ICD-10 - I10) is still low and is followed by dialysis 02/21/2024 High blood cholesterol (ICD-10 - E78.00) 10/03/2024 Essential hypertension (ICD-10 - I10) still running low 02/28/2024 Essential hypertension (ICD-10 - I10) is a little high today 03/13/2024 Type 2 diabetes mellitus without complications (ICD-10 - E11.9) had to stop the metformin due to renal failure 04/01/2024 Diabetic polyneuropathy associated with type 2 diabetes mellitus (ICD-10 - E11.42) sugars are running well, will continue to monitor 05/01/2024 Tachycardia (ICD-10 - R00.0) will restart the metoprolol at a lower dose and whatch his bp 08/28/2024 History of coronary artery stent placement (ICD-10 - Z95.5) 09/05/2024 Essential hypertension (ICD-10 - I10) still running low, will continue to monitor 02/21/2024 Acute systolic heart failure (ICD-10 - I50.21) 02/28/2024 Pyuria (ICD-10 - R82.81) 03/13/2024 Acute renal failure, unspecified acute renal failure type (ICD-10 - N17.9) has been started on dialysis and is doing well with it. sitill with a port 08/28/2024 Hypotension due to drugs (ICD-10 - I95.2) patient verbalized understanding of medication and directions for use. 02/21/2024 Stage 4 chronic kidney disease (ICD-10 - N18.4) Plan Of Treatment Pending Test Test Name Order Date Liver Panel 08/22/2024 Lipid Panel with Reflex 08/22/2024 US abdomen complete 02/23/2022 Next Appt Details Provider Name:Hilton Noyola ier, 01/05/2025 10:15:00 AM, [address] [place] [address], [address], [phone], Provider Name:Hilton Noyola ier, 03/23/2025 07:15:00 AM, [address] [place] [address], [address], [phone], Provider Name:Hilton Noyola ier, 03/30/2025 10:30:00 AM, [address] [place] [address], [address], [phone], Provider Name:Hilton Noyola ier, 08/31/2025 11:00:00 AM, [address] [place] [address], [address], [phone], Insurance Providers Payer Name Payer Address Payer Phone Subscriber Number Group Number Insured Name Patient Relationship to Insured Coverage Start Date Coverage End Date [employer]AGE PLAN ONE [facility] [address] [place] [phone] [id number] Liss Alfredoe Self - patient is the insured MEDICARE NHIC [employer] [address] [place] [id number] Liss Alfredoe Self - patient is the insured Medical (General) History Medical History History ICD Code Colonoscopy done 07/11/[address] Alexis edmonds in 5 years (2024)
--- OUTSIDE RECORDS SUMMARY | 2024-10-08 16:20 | XMS_ITS ---
Author Organization Hilton Pepe MD Address [address] [place], [place] [phone] Care Team Providers Care Monologist Name Role Phone Hilton Pepe Primary Care Provider [phone] Allergies No Known Allergies REASON FOR [...] Location Date Provider Diagnosis Hilton Pepe MD [address] [place] [address] Drive [address] [place] [phone] 09/05/2024 Hilton Pepe Toe infection L08.9 ; [...] Up: 1 Week, Reason: Provider Name:Hilton marc, 01/05/2025 10:15:00 AM, [address] [place] [address], [address], [place], [place], [phone], Provider Name:Hilton marc, 03/23/2025 07:15:00 AM, [address], [address], [place], [place], [phone], Provider Name:Hilton Noyola ier, 03/30/2025 10:30:00 AM, [address], [address], [place], [phone], Provider Name:Hilton Noyola ier, 08/31/2025 11:00:00 AM, [address], [address], [place], [place], [phone], Progress Notes * Woody ALFREDO SDOB:1955 ( 69 yo M)Acc No.[id number]:09/05/2024 Progress Notes Patient:?OSCARWoody BURNS S Provider:?Hilton Pepe MD :1955???Age:69 Y???Sex:Male Moncho e:09/05/2024 Address:[address] [place], [place] [phone] Subjective: * Chief Complaints: * ???Left second [...] MD Date:?0 09/05/2024 Generated for Helena burt/Jc/Rambo on:?10/08/2024 08:26 AM EDT History and Physical Notes * HPI [...]
--- OUTSIDE RECORDS SUMMARY | 2024-10-08 16:20 | XMS_ITS ---
Author Organization Hilton Pepe MD Address [address] [place] [phone] Care Team Providers Care Inclusion Specialist Name Role Phone Hilton Pepe Primary Care [...] Location Date Provider Diagnosis Hilton Pepe MD [address] [place] [phone] 09/12/2024 Hilton Pepe Toe infection L08.9 and [...] dialysis Next Appt Details Provider Name:Hilton marc, 01/05/2025 10:15:00 AM, [address] [place] [address], [address], [phone], Provider Name:Hilton marc, 03/23/2025 07:15:00 AM, [address] [place] [address], [address], [phone], Provider Name:Hilton marc, 03/30/2025 10:30:00 AM, [address] [place] [address], [phone], Provider Name:Hilton marc, 08/31/2025 11:00:00 AM, [address] [facility], [address], [place], [place], [phone], Progress Notes * Woody ALFREDO SDOB:1955 ( 69 yo M)Acc No.[id number]:09/12/2024 Patient:?Woody ALFREDO Provider:?Hilton Pepe MD :1955???Age:69 Y???Sex:Male Moncho e:09/12/2024 Address:[address] [place], [place] [phone] Subjective: * Chief Complaints: * ???1 week toe infection * HPI: ???Symptom(s):? feels as though it is getting better. no drainage for a week. * ROS:?General/Constitutional:?Denies?Chills.?Denies?Fatigue.?Denies?Fever.?Denies?Headache.?ENT:?Denies?Sore throat.?Respiratory:?Denies?Cough.?Admits?Shortness of breath at rest.?Gastrointestinal:?Denies?Diarrhea.?Denies?Nausea.? * Medical History:? * Surgical History:? * [...] TABLET BY MOUTH DAILY AT BEDTIME NEEDED levoFLOXacin 500 MG Tablet 1 tablet Orally Once a day Taking Finasteride 5 MG Tablet 1 tablet [...] BY MOUTH DAILY AT BEDTIME NEEDED Taking levoFLOXacin 500 MG Tablet 1 tablet Orally Once a day Not- Taking/PRNMetoprolol Succinate ER 200 MG Tablet Extended Release [...] tablet as needed Orally Once a day Not- Taking/PRN Benzonatate 100 MG Capsule 1 capsule as needed Orally Three times a day Medication List reviewed and reconciled with the patient * Allergies:?N.K.D.A.yes[Aller gies Verified] Objective: * Vitals:?Ht: 72, Wt: 203, BMI :27.53, BP:98/64, Wt-k.08. * Examination: ???General Examination: ?GENERAL APPEARANCE:?pleasant, well nourished, well developed, in no acute distress.?SKIN:?abnormal left second toe is red but less swollen..? Assessment: * Assessment: 1.?Toe infection - L08.9 (Pr imary)???2.?Essential hypertension - I10??? Plan: * Treatment: 2.?Essential hypertension? Notes: is still low and is followed by dialysis?? * Procedure Codes:? * * Sign off status: Completed true * Provider:?Hilton Pepe MD Date:?0 09/12/2024 Generated for Helena burt/Jc/eTjagdeepsmitting on:?10/08/2024 08:26 AM EDT History and Physical [...]
--- OUTSIDE RECORDS SUMMARY | 2024-10-08 16:20 | XMS_ITS | Encounter Summary ---
Author Organization [facility] Facility Address [address] [address] Care Team Providers Care Video Surveillance Technician Name Role Phone Hilton Pepe MD Primary Care Provider Encounter Details Date Type Department Care Team (Latest Contact Info) Description 03/11/2024 Treatment Yossi Snider MD [address] [phone] Social History Tobacco Use Types Packs/Day Years [...] kidney injury requiring renal replacement therapy. Attending Mop Machine Operator: YOSSI SNIDER MD Dialysis Location: [facility] Schedule: Shift: 1 OVERVIEW Patient is stable. HOME MEDICATIONS Medications reviewed. Current [facility] Outpatient Medications aspirin EC tablet [...] time each day Start Date: 01/04/2023 Current [facility] Allergies Allergen: No Known Allergies [...] on filedocumented in this encounter Care Teams Video Surveillance Technician Relationship Specialty Start Date End Date Hilton Pepe MD [id number] [place], [place] PCP - General Internal Medicine 03/23/22 documented as of this encounter
--- OUTSIDE RECORDS SUMMARY | 2024-10-08 16:20 | XMS_ITS ---
Author Organization Hilton Pepe MD Address [address] [place], [place] [id number] Care Team Providers Care Transport Driver Name Role Phone Hilton Pepe Primary Care Provider Allergies No Known Allergies Reason For Referral Reason SCREEN FOR COLON CAN CER Diagnosis 1 Screen for colon can cer (Z12.11) Referral Organization Hilton Pepe MD Referring Provider First Name Hilton Referring Provider Last Name My Referring Provider Speciality Internal M edicine Referred Provider Nico Espinoza Referred Provider Specialty Gastroentero logy Referral Priority Routine REASON FOR VISIT 4 week Medications Medication SIG (Take, Route, Frequency, Duration) Notes Start Date End Date Status Magnesium Oxide 400 MG 1 tablet as neede d Orally Once a day for 90 days 08/17/2022 Not-Taking Benzonatate 100 MG 1 capsule as needed Orally Three times a day for 10 days 07/18/2022 Not-Taking metFORMIN HCl 500 MG TAKE 1 TABLET BY [facility] TWICE DAILY WITH A MEAL Orally twice aday for 90 days Not-Taking Torsemide 10 MG take 1 tablet by joseph th every day as directed Orally Once a day for 90 days Not-Taking Molnupiravir 200 MG 4 capsules Orally ev yazan 12 hrs for 5 day(s) 01/25/2024 Not-Taking Metoprolol Succinate ER 200 MG 1 tablet Orally Once a day Not-Taking amLODIPine Besylate 5 MG TAKE 1 TABLET B Y MOUTH EVERY DAY Not-Taking Famotidine 20 MG TAKE 1 TABLET BY JOSEPH TH DAILY AT BEDTIME NEEDED for 30 Active levoFLOXacin 500 MG 1 tablet Orally Once a day for 10 days 09/05/2024 Active Metoprolol Succinate ER 25 MG 1 tablet Orally Once a day for 30 days 08/28/2024 Active Metoprolol Succinate ER 100 MG 1 [...] a day for 90 days 11/30/2022 Active Atorvastatin Calcium 80 MG TAKE 1 [...] day(s) Active Vital Signs Blood pressure systolic 98 mm Hg 10/04/19 25 Blood pressure diastolic 64 mm Hg 025 Height 72 in 10/03/2024 Weight 205 lbs 10/03/2024 BMI 27.8 kg/m2 10/03/2024 weight is up 2 pounds since 09-12-24 Encounters Encounter Location Date Provider Diagnosis Hilton Pepe MD [address] [place] [address] [place] [phone] 10/03/2024 Hilton Pepe Chronic renal failure, stage 4 (severe) N18.4 ; Toe infection L08.9 and Essential hypertension I10 Assessments Encounter Date Diagnosis (ICD Code) Assessment Notes Treatment Notes Treatment Clinical Notes Section Notes 10/03/2024 Chronic renal failure, stage 4 (severe) (ICD-10 - N18.4) needs colonoscopy this summer to get transplant of kidney/ REFERRAL FAXED TO DR ALEXIS ALCOCER GASTRO 10/03/2024 Toe infection (ICD-10 - L08.9) has resolved 10/03/2024 Essential hypertension (ICD-10 - I10) still running low Plan Of Treatment Treatment Notes Assessment Notes Chronic renal failure, stage 4 (severe) needs colonoscopy this summer to get transplant of kidney/ REFERRAL FAXED TO DR ALEXIS ALCOCER [facility]STRO Toe infection has resolved Essential hypertension still running low Referrals Referral Date Details 10/03/2024 10/03/2024, SCREEN F OR COLON CANCER, Nico Espinoza Next Appt Details Follow Up: 3 Months, Reason: Provider Name:Hilton marc, 01/05/2025 10:15:00 AM, [address], [address], [place], [phone], Provider Name:Hilton teaguer, 03/23/2025 07:15:00 AM, [address], [address], [place], [phone], Provider Name:Hilton teaguer, 03/30/2025 10:30:00 AM, [address], [address], [place], [phone], Provider Name:Hilton marc, 08/31/2025 11:00:00 AM, [address] [place] [address], [address], [place], [phone], Progress Notes * Woody ALFREDO SDOB:1955 ( 69 yo M)Acc No.[id number]:10/03/2024 Progress Notes Patient:?Woody ALFREDO S Provider:?Hilton Pepe MD :1955???Age:69 Y???Sex:Male Moncho e:10/03/2024 Address:[address] [place], [place] [id number] Subjective: * Chief Complaints: * ???1. 4 week. * HPI: ???Symptom(s):?patient is a 69 yo male here for 4 week follow up visit/ toe is back to normal. * ROS:?General/Constitutional:?Denies?Chills.?Denies?Fatigue.?Denies?Fever.?Denies?Headache.?ENT:?Denies?Sore throat.?Respiratory:?Denies?Cough.?Denies?Shortness of breath at rest.?Denies?Shortness of breath with exertion.?Gastrointestinal:?Denies?Diarrhea.?Denies?Nausea.? * Medical History:?Colonoscopy done 07/11/[address] [...] * Allergies:?N.K.D.A. Objective: * Vitals:?Ht: 72, Wt: 205, BMI :27.8, BP:98/64, Wt-k.99. weight is up 2 pounds since 09-12-24. * Examination: ???General Examination: ?GENERAL APPEARANCE:?alert, well hydrated, in no distress.?SKIN:?good turgor.?HEART:?no murmurs, rubs, gallops, regular rate and rhythm.?LUNGS:?clear to auscultation bilaterally, good air movement, no wheezes, rales, rhonchi.?EXTREMITIES:?abnormal with 2nd toe still red and not painful and no discharge.? Assessment: * Assessment: 1.?Chronic renal failure, st age 4 (severe) - N18.4 (Primary)???2.?Toe infection - L08.9???3.?Essential hypertension - I10??? Plan: * Treatment: 2.?Toe infection? Notes: has resolved?? 3.?Essential hypertension? Notes: still running low?? 4.?Others? Referral To:Nico Espinoza??Gastroenterology ?Reason:SCREEN FOR COLON CANCER * Follow Up:?3 Months * * The named appointment provid er may or may not be the originator of this progress note, and it is not deemed complete until electronically signed by the appointment provider. Sign off status: Pending * Provider:?Hilton Pepe MD Date:?0 10/03/2024 Generated for Helena burt/Jc/eTransmitting on:?10/08/2024 08:26 AM EDT History and Physical Notes * HPI (History of Present Illness) Category Sub-Category Detail Notes Category Not es Symptom(s) patient is a 69 yo male here for 4 week follow up visit/ toe is back to normal Examination Category Sub-Category Detail Notes Category Not es General Examination GENERAL APPEARANCE: alert, w ell hydrated, in no distress HEART: no murmurs, rubs, ga llops, regular rate and rhythm LUNGS: clear to auscultatio n bilaterally, good air movement, no wheezes, rales, rhonchi SKIN: good turgor EXTREMITIES: abnormal with 2nd to e still red and not painful and no discharge Consultation Request Notes Referral Date Referring Provider Referred Provider Not es 10/03/2024 Hilton Pepe Bernard SCREEN FOR COLON CANCER
--- OUTSIDE RECORDS SUMMARY | 2024-10-08 16:20 | XMS_ITS | Encounter Summary ---
Author Organization [facility] Address [address] [place] [phone] Phone Care Team Providers Care Grocery Clerk Name Role Phone Hilton Pepe MD Primary Care Provider Encounter Details Date Type Department Care Team (Late st Contact Info) Description 10/07/2024 Treatment [facility] [address] [phone] Yossi Snider MD [facility] [phone] End stage renal disease; Dependence [...] Dialysis Note - Yossi Snider MD - 10/07/2024 12:00 AM EDT Patient: Woody Alfredo : 1955 Note Type: Dialysis Rounds-Comp Service Date: 10/07/2024 This patient was personally seen for a complete visit as part of routine monthly dialysis care for end stage renal disease. Attending Service Now Developer: YOSSI SNIDER MD Dialysis Location: [facility] Schedule: Shift: 1 OVERVIEW Patient is stable. HOME MEDICATIONS Medications reviewed. Current [facility] Outpatient Medications aspirin EC tablet Take 81 [...] time each day Start Date: 01/04/2023 Current [facility] Allergies Allergen: No Known Allergies BP AND FLUID ASSESSMENT Acceptable blood pressure. Fluid status acceptable. ADEQUACY ASSESSMENT Kt/V, Natural Log 1.34 (09/11/24) 1.21 (08/21/24) 1.11 (08/14/24) UREA REDUCTION RATIO (%) 70 (09/11/24) 66 (08/21/24) 62 (08/14/24) BUN 56 (09/11/24) 62 (08/21/24) 42 (08/14/24) BUN Post Dialysis 17 (09/11/24) 21 (08/21/24) 16 (08/14/24) Creatinine 7.09 (09/11/24) 6.96 (08/14/24) 6.39 (07/17/24) Bicarbonate (CO2) 25 (09/11/24) 23 (08/14/24) 23 (07/17/24) Sodium 139 (09/11/24) 143 (08/14/24) 141 (07/17/24) Target met. Prescription compliance acceptable. Continue with greater than 3x more frequent dialysis prescription. ACCESS ASSESSMENT Vascular access examined. ANEMIA ASSESSMENT Hgb 9.8 (10/02/24) 9.9 (09/25/24) 9.6 (09/11/24) Iron Saturation (TSat) 50 (09/11/24) 51 (08/14/24) 28 (07/17/24) Ferritin 300 (09/11/24) 190 (08/14/24) 176 (07/17/24) Iron 96 (09/11/24) 100 (08/14/24) 58 (07/17/24) TIBC 193 (09/11/24) 195 (08/14/24) 209 (07/17/24) MCV 95.1 (09/11/24) 97.4 (08/14/24) 100.3 (06/12/24) Platelets 160 (09/11/24) 124 (08/14/24) 135 (06/12/24) WHITNEY adjusted per protocol. Iron adjusted per protocol. BMM ASSESSMENT Calcium, Adjusted Total 9.3 09/11/24 8.8 08/14/24 9.2 07/17/24 Calcium 9.1 09/11/24 8.4 08/14/24 9.1 07/17/24 Phosphorus, Serum 4.0 09/11/24 5.0 08/14/24 4.3 07/17/24 Ca*PO4 36.4 09/11/24 42.0 08/14/24 39.1 07/17/24 PTH, Intact 206 07/17/24 466 06/12/24 438 05/15/24 Magnesium 2.0 09/11/24 2.0 08/14/24 2.3 07/17/24 Alkaline Phosphatase 160 09/11/24 161 08/14/24 136 07/17/24 Aluminum 4 07/17/24 Bone and mineral metabolism parameters reviewed. NUTRITION ASSESSMENT Albumin 3.8 09/11/24 3.5 08/14/24 3.9 07/17/24 Potassium 4.7 09/11/24 4.7 08/14/24 5.0 07/17/24 Hemoglobin A1C 5.6 07/17/24 Albumin not at goal. ADDITIONAL LABS White Blood Cells 5.9 (09/11/24) 6.0 (08/14/24) 6.6 (06/12/24) Cholesterol 95 (07/17/24) HDL 28 (07/17/24) LDL-Calc 49 (07/17/24) Triglycerides 92 (07/17/24) Hep B Surface Antibody <4 (07/17/24) NONREACTIVE (03/03/24) Uric Acid 4.7 (07/17/24) Signed by: YOSSI SNIDER MD on 10/07/2024 at 08:48:23 AM documented in this encounter Plan of Treatment Not on file documented as of this encounter Visit Diagnoses Diagnosis End stage renal disease Dependence on renal dialysis documented in this encounter Care Teams Grocery Clerk Relationship Specialty Start Date End Date Hilton Ppee MD [address] [place] [address] [address] [place], [place] PCP - General Internal Medicine 03/23/22 documented as of this encounter
--- OUTSIDE RECORDS SUMMARY | 2024-10-08 16:20 | XMS_ITS | Encounter Summary ---
Author Organization [facility] Address [address] [address] [address] [place] [address] Phone Care Team Providers Care Marine Geologist Name Role Phone Hilton Pepe MD Primary Care Provider Encounter Details Date Type Department Care Team (Late st Contact Info) Description 03/28/2022 Office Communication [facility] [address] [facility] [address] [place] [address] Daria Moore Social History Tobacco [...] on filedocumented in this encounter Care Teams Marine Geologist Relationship Specialty Start Date End Date Hilton Pepe MD [address] [place] [address] [address] [place] [address] PCP - General Internal Medicine 03/23/22 documented as of this encounter
== END ==
LOC: HO.CARD 13:34
PROVIDERS: PCP Internal Medicine; Visit Provider Internal Medicine
DX: I25.10 Atherosclerotic heart disease of native coronary artery without angina pectoris (principal); I25.5 Ischemic cardiomyopathy
CPT/HCPCS: 93306; Q9957

== ENCOUNTER → 2024-10-08 13:37 | Outpatient (BNV) | payer MEDICARE, SELFPAY | PROVIDERS: PCP Internal Medicine; Visit Provider Internal Medicine | DX: I34.81 Nonrheumatic mitral (valve) annulus calcification (principal); I10 Essential (primary) hypertension | CPT/HCPCS: 93306 ==

== ENCOUNTER 2024-10-10 17:50 | Emergency (ER) | payer MEDICARE, SELFPAY ==
--- NOTE | ~2024-10-10 | XR_ITS ---
CLINICAL HISTORY: right port fell out? 2 view chest x-ray Comparison: Chest x-ray from 04/16/2024 Findings: No chest port or central venous catheter in the hecju-po-muvw. Small calcific densities are nonspecific over the right clavicle. No consolidation, pneumothorax, or pleural effusion. Mild emphysematous changes. Mild cardiomegaly redemonstrated. Degenerative changes include imaged shoulders and imaged spine. Mild vertebral height losses are age indeterminate by radiographs, with fusion of the T6 and T7. IMPRESSION: 1. Nonspecific calcifications of the right clavicle region. Please consider CT if there is confirmed for small fragments are for bodies retained. 2. No consolidation. This document has been electronically signed by: Adam Sheehan MD on 10/10/2024 20:19:06
[2024-10-10 18:42] VITALS: BP 144/68; PULSE 100; RESP 16; TEMP 36.7; O2SAT 100; BMI 28.8
--- NOTE | 2024-10-10 19:00 | ED.GENADULT ---
HPI - General Adult General Chief complaint: General Medical Stated complaint: dialysis port came out Time Seen by Provider: 10/10/24 22:17 Source: patient Mode of arrival: ambulatory Limitations: no limitations History of Present Illness ED Provider: HPI narrative: Patient's history of end-stage renal on dialysis had dialysis yesterday from the Shiley catheter which came out by accident earlier today patient is supposed to get dialysis tomorrow patient does have AV shunt on the left forearm which will be ready in next 2 days patient is asymptomatic otherwise Related Data Home Medications ?Medication ?Instructions ?Recorded ?Confirmed atorvastatin 80 mg tablet 80 mg PO BEDTIME 02/28/24 09/17/24 clopidogrel 75 mg tablet 75 mg PO DAILY 02/28/24 09/17/24 tamsulosin 0.4 mg capsule 0.4 mg PO DAILY 02/28/24 09/17/24 aspirin 81 mg tablet,delayed 81 mg PO DAILY 02/29/24 09/17/24 release famotidine 20 mg tablet 20 mg PO DAILY 07/16/24 09/17/24 sevelamer carbonate 800 mg tablet 800 mg PO DAILY 07/16/24 09/17/24 metoprolol succinate 50 mg 25 mg PO DAILY 09/17/24 09/17/24 tablet,extended release 24 hr Allergies Allergy/AdvReac Type Severity Reaction Status Date / Time No Known Allergies Allergy Verified 10/10/24 18:44 Review of Systems Review of Systems: Yes all other systems are reviewed and are negative [facility] Past Medical History Medical History CKD (chronic kidney disease) Incomplete bladder emptying Obstructive uropathy Non-insulin dependent type 2 diabetes mellitus CKD (chronic kidney disease) stage 3, GFR 30-59 ml/min Heart failure Hyperlipidemia STEMI (ST elevation myocardial infarction) CAD (coronary artery disease) CVA (cerebral vascular accident) Family History Family History Mother No problems noted. Father No problems noted. Social History Social History Household Members: Family Household Members Other:: and daughter Housing: House Do you presently have visiting nurse or other home services: No Patient Tobacco Use Status: Never used Tobacco Smoked in Last 30 Days: No Second Hand Smoke Exposure: No Use of substances other than those prescribed or required for medical reasons: No Advance Directives: Yes Advance Directives on File: Yes Advance Directives Date on File: 02/29/24 service: No Physical Exam ED Vital Signs: Vital Signs - 24 hr 10/10/24 18:42 10/10/24 22:25 10/10/24 23:42 Temperature 98.1 F 97.7 F 97.7 F Pulse Rate 100 94 94 Respiratory Rate 16 18 18 Blood Pressure 144/68 H 142/84 H 142/84 H Pulse Oximetry 100 92 92 Oxygen Delivery Method Room Air Room Air Room Air BMI result Body Mass Index 28.8 Appearance: Alert. Oriented X3. No acute distress. Eyes: PERRLA, No Nystagmus ENT: Pharynx normal. Oral Mucosa moist Neck: Normal inspection. Neck supple. CVS: Normal heart rate and rhythm. Pulses normal. Shiley catheter site in the right chest intact Respiratory: No respiratory distress. Equal air entry bilateral, no wheezing/rales/rhonchi Abdomen: Soft and nontender. Bowel sounds are present, no mass palpable, no CVA tenderness Skin: Skin warm and dry. Normal skin color. Normal skin turgor. Extremities: No lower extremity edema. No calf tenderness left forearm AV fistula present with bruit++ Neuro: Oriented X 3. No motor deficit. No sensory deficit.No cerebellar signs , cranial nerves II-XII intact Course Course Course Narrative: RME performed by Cally Muse PA-C. Patient is a 69 year old assigned male at presenting to the emergency department today after his dialysis port in his chest fell out. Patient states he stood up today and noticed that his dialysis port is in his lap. Detailed physical exam and review of systems are deferred to the continuing education director. Imaging ordered. Patient placed back in the waiting room pending room availability and results. Medical Decision Making Medical Decision Making MDM Narrative: Patient with history of end-stage renal disease with AV fistula was getting temporary dialysis from Shiley catheter which came out by accident AV fistula is mature with bruit case discussed with automation technician will use it tomorrow for dialysis for any complication will follow from there Discharge Plan Discharge Clinical Impression: ESRD (end stage renal disease) on dialysis Patient Disposition: Home, Self-Care Instructions: Hemodialysis (DC), Arteriovenous Fistula Creation for Hemodialysis (DC) Additional Instructions: Your fistula should be ready to use tomorrow for dialysis If any problems call your automation technician tomorrow Prescriptions: No Action atorvastatin 80 mg tablet 80 mg PO BEDTIME clopidogrel 75 mg tablet 75 mg PO DAILY tamsulosin 0.4 mg capsule 0.4 mg PO DAILY aspirin 81 mg Tablet,Delayed Release (Dr/Ec) 81 mg PO DAILY famotidine 20 mg tablet 20 mg PO DAILY sevelamer carbonate 800 mg tablet 800 mg PO DAILY Rx Instructions: must administer with a meal/food metoprolol succinate 50 mg tablet extended release 24 hr 25 mg PO DAILY Interventions: ED Discharge Assessment Last Done: 10/10/24 23:42 Discharge Date/Time: 10/10/24 23:43 Print Language: Taiwanese
[2024-10-10 22:25] VITALS: BP 142/84; PULSE 94; RESP 18; TEMP 36.5; O2SAT 92
--- OUTSIDE RECORDS SUMMARY | 2024-10-10 22:47 | XMS_ITS | Clinical Summary ---
Author Organization [facility] Address [address] [place] [phone] Phone Care Team Providers Care Slater Apprentice Name Role Phone Hilton Pepe MD Primary [...] 10/07/2024 Treatment [facility] [address] [address] Quinton Snider MD End stage renal disease; Dependence on renal dialysis 09/25/2024 Orders Only [facility] [address] [address] Quinton Snider MD 09/23/2024 Treatment [facility] [address] [address] Quinton Snider MD End stage renal disease; Dependence on renal dialysis 09/16/2024 Treatment [facility] [address] [address] Quinton Snider MD End stage renal disease; Dependence on renal dialysis 09/11/2024 Treatment [facility] [address] [address] Quinton Snider MD End stage renal disease; Dependence on renal dialysis 09/09/2024 Treatment [facility] [address] [address] Quinton Snider MD End stage renal disease; Dependence on renal dialysis 09/02/2024 Treatment [facility] [address] [address] Quinton Snider MD 08/26/2024 Treatment [facility] [address] [address] Quinton Snider MD 08/19/2024 Treatment [facility] [address] [address] Quintno Snider MD 08/14/2024 Treatment [facility] [address] [address] Quinton Snider MD 08/12/2024 Treatment [facility] [address] [address] Quinton Snider MD 07/29/2024 Treatment [facility] [address] [address] Quinton Snider MD 07/22/2024 Treatment [facility] [address] [address] Quinton Snider MD 07/15/2024 Treatment [facility] [address] [address] Quinton Snider MD from Last 3 Months [...] ORDERABLES Final Resul t Performing Organization Address [facility] Co de Phone Number [facility] [address] [place] [address] * (ABNORMAL) Hemoglobin and hematocrit (09/25/2024 3:00 [...] ORDERABLES Final Resul t Performing Organization Address City/[facility] Co de Phone Number [facility] [address] [place] [address] * LIH (09/11/2024 3:00 AM EST) Only the most recent of4 resultswithin the time period is included. Lipemia Normal Normal [facility] Icterus Normal Normal [facility] Hemolysis Normal Normal [facility] 09/11/2024 3:00 AM EST 09/12/2024 12:13 PM EST us Quinton Snider MD LAB [id number] ICITED RESULTS Final Result Performing Organization Address City/[facility]/ZIP Co de Phone Number [facility] [address] [place] [address] * (ABNORMAL) Kt/V Natural Log, URR (09/11/2024 [...] PM EST us Quinton Snider MD LAB [id number] ICITED RESULTS Final Result Performing Organization Address [facility] Co de Phone Number [facility] [address] [place] [address] * Calcium Phosphorus Product, Adjusted (09/11/2024 3:00 [...] PM EST us Quinton Snider MD LAB [id number] ICITED RESULTS Final Result Performing Organization Address [facility] de Phone Number [facility] [address] [place] [address] * Hepatitis B Surface Ag w/Reflex Confirmation (09/11/2024 3:00 AM EST) Only the most recent of3 resultswithin the time period is included. Pathologist [facility] Hep B Surface Antigen Negative Negative [facility] 09/11/2024 3:00 AM EST 09/12/2024 12:13 PM EST us Quinton Snider MD LAB BLOOD ORDERABLES Final Resul t Performing Organization Address [facility] de Phone Number [facility] [address] [place] [address] * (ABNORMAL) TSAT (09/11/2024 3:00 AM EST) Only the most recent of3 resultswithin the time period is included. [facility] Iron 96 65 - 175 ug/dL [facility] Transferrin 138(L) 215 - 365 mg/dL [facility] TIBC 193(L) 211 - 406 ug/dL [facility] Iron Saturation (TSat) 50 22 - 52 % [facility] 09/11/2024 3:00 AM EST 09/12/2024 12:13 PM EST us Quinton Snider MD LAB BLOOD ORDERABLES Final Resul t Performing Organization Address [facility] de Phone Number [facility] [address] [place] [address] * (ABNORMAL) CBC and Differential (09/11/2024 3:00 AM EST) Only the most recent of2 resultswithin the time period is included. Pathologist [facility] DIFFERENTIAL MANUAL, 2 Not Indicated [facility] White [...] ORDERABLES Final Resul t Performing Organization Address City/[facility] Co de Phone Number [facility] [address] [place] [address] * (ABNORMAL) ALT (09/11/2024 3:00 AM EST) Only the most recent of3 resultswithin the time period is included. ALT (SGPT) 8(L) 10 - 49 U/L [facility] 09/11/2024 3:00 AM EST 09/12/2024 12:13 PM EST us Quinton Snider MD LAB BLOOD ORDERABLES Final Resul t Performing Organization Address City/[facility] Co de Phone Number [facility] [address] [place] [address] * AST (09/11/2024 3:00 AM EST) Only the most recent of3 resultswithin the time period is included. AST (SGOT) 20 <34 U/L [facility] 09/11/2024 3:00 AM EST 09/12/2024 12:13 PM EST Quinton Snider MD LAB BLOOD ORDERABLES Final Resul t Performing Organization Address [facility] de Phone Number [facility] [address] [place] [address] * (ABNORMAL) Protein, total (09/11/2024 3:00 AM EST) Only the most recent of3 resultswithin the time period is included. Total Protein 6.3(L) 6.4 - 8.9 g/dL [facility] 09/11/2024 3:00 AM EST 09/12/2024 12:13 PM EST Quinton Snider MD LAB BLOOD ORDERABLES Final Resul t Performing Organization Address [facility] de Phone Number [facility] [address] [place] [address] * (ABNORMAL) Alkaline phosphatase (09/11/2024 3:00 AM EST) Only the most recent of3 resultswithin the time period is included. Alkaline Phosphatase 160(H) 46 - 116 U/L [facility] 09/11/2024 3:00 AM EST 09/12/2024 12:13 PM EST Quinton Snider MD LAB BLOOD ORDERABLES Final Resul t Performing Organization Address [facility] de Phone Number [facility] [address] [place] [address] * Magnesium (09/11/2024 3:00 AM EST) Only the most recent of3 resultswithin the time period is included. Magnesium 2.0 1.9 - 2.7 mg/dL [facility] 09/11/2024 3:00 AM EST 09/12/2024 12:13 PM EST us Quinton Snider MD LAB BLOOD ORDERABLES Final Resul t Performing Organization Address [facility] de Phone Number [facility] [address] [place] [address] * Lactate dehydrogenase (09/11/2024 3:00 AM EST) Only the most recent of3 resultswithin the time period is included. LDH 215 120 - 246 U/L [facility] 09/11/2024 3:00 AM EST 09/12/2024 12:13 PM EST us Quinton Snider MD LAB BLOOD ORDERABLES Final Resul t Performing Organization Address [facility] Phone Number [facility] [address] [address] * Glucose, random (09/11/2024 3:00 AM EST) Only the most recent of3 resultswithin the time period is included. Glucose 109 74 - 109 mg/dL [facility] 09/11/2024 3:00 AM EST 09/12/2024 12:13 PM EST us Quinton Snider MD LAB BLOOD ORDERABLES Final Resul t Performing Organization Address [facility] Phone Number [facility] [address] [place] [address] * Ferritin (09/11/2024 3:00 AM EST) Only the most recent of3 resultswithin the time period is included. Ferritin 300 22 - 322 ng/mL [facility] 09/11/2024 3:00 AM EST 09/12/2024 12:13 PM EST us Quinton Snider MD LAB BLOOD ORDERABLES Final Resul t Performing Organization Address [facility] de Phone Number [facility] [address] [place] [address] * (ABNORMAL) Creatinine, serum (09/11/2024 3:00 AM EST) Only the most recent of3 resultswithin the time period is included. Creatinine 7.09(H) 0.70 - 1.30 mg/dL [facility] 09/11/2024 3:00 AM EST 09/12/2024 12:13 PM EST us Quinton Snider MD LAB BLOOD ORDERABLES Final Resul t Performing Organization Address City/[facility] Co de Phone Number [facility] [address] [place] [address] * Bilirubin, total (09/11/2024 3:00 AM EST) Only the most recent of3 resultswithin the time period is included. Total Bilirubin 0.3 0.3 - 1.2 mg/dL [facility] 09/11/2024 3:00 AM EST 09/12/2024 12:13 PM EST us Quinton Snider MD LAB BLOOD ORDERABLES Final Resul t Performing Organization Address [facility] de Phone Number [facility] [address] [place] [address] * Electrolyte panel (09/11/2024 3:00 AM EST) [...] ORDERABLES Final Resul t Performing Organization Address [facility] de Phone Number [facility] [address] [place] [address] * Confirmation Test HCV (07/17/2024 3:00 AM EST) Hep C Ab Confirmation Not needed [facility] 07/17/2024 3:00 AM EST 07/21/2024 2:06 PM EST us Quinton Snider MD LAB BLOOD ORDERABLES Final Resul t Performing Organization Address [facility] de Phone Number [facility] [address] [place] [address] * Collection Date (07/17/2024 3:00 AM EST) Collection Date See Comment [facility] Comment: Patient sample received may exceed specimen stability, based on the collection date electronically provided. ??When reviewing patient results, verify collection information and consider specimen stability before acting on any critical or panic results. 07/17/2024 3:00 AM EST us Quinton Snider MD LAB [id number] ICITED RESULTS Final Result Performing Organization Address [facility] Phone Number [facility] [address] [place] [address] * HEPATITIS C ABS W/REFLEX RNA DETECTR (07/17/2024 3:00 AM EST) Hep C Virus Ab Non-Reacti ve Non-Reacti ve [facility] 07/17/2024 3:00 AM EST 07/21/2024 2:06 PM EST us Quinton Snider MD LAB [id number] ICITED RESULTS Final Result Performing Organization Address [facility] de Phone Number [facility] [address] [place] [address] * Aluminum level (07/17/2024 3:00 AM EST) Aluminum 4 1 - 20 ug/L [facility] 07/17/2024 3:00 AM EST 07/21/2024 1:59 PM EST us Quinton Snider MD LAB BLOOD ORDERABLES Final Resul t Performing Organization Address [facility] de Phone Number [facility] [address] [phone] * (ABNORMAL) Hepatitis B Surface Antibody (07/17/2024 3:00 AM EST) Hep B Surface Antibody <4(A) mIU/mL [facility] Comment: Interpretation: <10: No Immunity >=10: Probable Immunity 07/17/2024 3:00 AM EST 07/21/2024 2:06 PM EST us Quinton Snider MD LAB BLOOD ORDERABLES Final Resul t Performing Organization Address [facility] de Phone Number [facility] [address] [place] [address] * Uric Acid (07/17/2024 3:00 AM EST) Uric Acid 4.7 4.4 - 7.6 mg/dL [facility] 07/17/2024 3:00 AM EST 07/21/2024 2:06 PM EST us Quinton Snider MD LAB BLOOD ORDERABLES Final Resul t Performing Organization Address [facility] de Phone Number [facility] [address] [place] [address] * PTH, Intact (07/17/2024 3:00 AM EST) PTH, Intact 206 160 - 721 pg/mL [facility] Comment: Suggested (KDIGO) ESRD maintenance range is two to nine times the upper normal limit (80.1 pg/mL) for the laboratory. 07/17/2024 3:00 AM EST 07/21/2024 2:06 PM EST us Quinton Snider MD LAB BLOOD ORDERABLES Final Resul t Performing Organization Address [facility] de Phone Number [facility] [address] [place] [address] * Hemoglobin A1c (07/17/2024 3:00 AM EST) [...] Final Resul t [facility] [address] [place] [address] * (ABNORMAL) Lipid panel (07/17/2024 3:00 AM [...] Final Resul t [facility] [address] [place] [address] from Last 3 Months Insurance Care Teams Slater Apprentice Relationship Specialty Start Date End Date Hilton Pepe MD [address] [place] [address] [address] [place], [place] PCP - General Internal Medicine 03/23/22
--- OUTSIDE RECORDS SUMMARY | 2024-10-10 22:47 | XMS_ITS | Encounter Summary ---
Author Organization [facility] Address [address] [facility] [address] [place] [address] Phone Care Team Providers Care Remanufacturing Technician Name Role Phone Hilton Pepe MD Primary Care Provider [phone] Encounter Details Date Type Department Care Team (Late st Contact Info) Description 03/28/2022 Office Communication [facility] [address] [facility] [address] [place] [address] Daria Moore Social History Tobacco [...] on filedocumented in this encounter Care Teams Remanufacturing Technician Relationship Specialty Start Date End Date Hilton Pepe MD [address] [place] [address] [address] [place] [address] PCP - General Internal Medicine 03/23/22 documented as of this encounter
--- OUTSIDE RECORDS SUMMARY | 2024-10-10 22:47 | XMS_ITS | Encounter Summary ---
Author Organization [facility] Address [address] [address] Care Team Providers Care Home Theatre Technician Name Role Phone Hilton Pepe MD Primary Care Provider [phone] Encounter Details Date Type Department Care Team (Latest Contact Info) Description 03/11/2024 Treatment Yossi Snider MD [address] [phone] Social History Tobacco Use Types Packs/Day Years [...] kidney injury requiring renal replacement therapy. Attending Liability Claims Adjuster: YOSSI SNIDER MD Dialysis Location: [facility] Schedule: Shift: 1 OVERVIEW Patient is stable. HOME MEDICATIONS Medications reviewed. Current [facility] Medications aspirin EC tablet Take 81 [...] time each day Start Date: 01/04/2023 Current [facility] Allergies Allergen: No Known Allergies BP AND [...] on filedocumented in this encounter Care Teams Home Theatre Technician Relationship Specialty Start Date End Date Hilton Pepe MD [address] [place], [place] PCP - General Internal Medicine 03/23/22 documented as of this encounter
--- OUTSIDE RECORDS SUMMARY | 2024-10-10 22:47 | XMS_ITS ---
Author Organization Hilton Pepe MD Address [address] [place], [place] [phone] Care Team Providers Care Research Software Engineer Name Role Phone Hilton Pepe Primary Care [...] 500 MG TAKE 1 TABLET BY MO [facility] TWICE DAILY WITH A MEAL Orally twice [...] Location Date Provider Diagnosis Hilton Pepe MD [address] [place] [address] [place] [phone] 10/03/2024 Hilton Pepe Chronic renal failure, stage [...] 10:15:00 AM, [address], [address], [place], [phone], Provider Name:Hilton teaguer, 03/23/2025 07:15:00 AM, [address], [address], [place], [phone], Provider Name:Hilton teaguer, 03/30/2025 10:30:00 AM, [address], [address], [place], [phone], Provider Name:Hilton marc, 08/31/2025 11:00:00 AM, [address] [place] [address], [address], [place], [phone], Progress Notes * Woody ALFREDO SDOB:1955 ( 69 yo M)Acc No.[id number]:10/03/2024 Progress Notes Patient:?Woody ALFREDO S Provider:?Hilton Pepe MD :1955???Age:69 Y???Sex:Male Moncho e:10/03/2024 Address:[address] [place], [place] [phone] Subjective: * Chief Complaints: * ???1. 4 [...] MD Date:?0 10/03/2024 Generated for Helena burt/Jc/eTransmitting on:?10/10/2024 10:46 PM EDT History and Physical Notes * [...]
--- OUTSIDE RECORDS SUMMARY | 2024-10-10 22:47 | XMS_ITS ---
Author Organization Hilton Pepe MD Address [address] [place] [phone] Care Team Providers Care Drug And Alcohol Counselor Name Role Phone Hilton Pepe Primary Care [...] Location Date Provider Diagnosis Hilton Pepe MD [address] [place] [phone] 09/12/2024 Hilton Pepe Toe infection L08.9 and [...] Details Provider Name:Hilton marc, 01/05/2025 10:15:00 AM, [address] [place] [address], [address], [phone], Provider Name:Hilton marc, 03/23/2025 07:15:00 AM, [address] [place] [address], [address], [phone], Provider Name:Hilton marc, 03/30/2025 10:30:00 AM, [address] [place] [address], [phone], Provider Name:Hilton marc, 08/31/2025 11:00:00 AM, [address] [facility], [address], [place], [place], [phone], Progress Notes * Woody ALFREDO SDOB:1955 ( 69 yo M)Acc No.[id number]:09/12/2024 Patient:?Woody ALFREDO Provider:?Hilton Pepe MD :1955???Age:69 Y???Sex:Male Moncho e:09/12/2024 Address:[address] [place], [place] [phone] Subjective: * Chief Complaints: * ???1 week [...] MD Date:?0 09/12/2024 Generated for Helena burt/Jc/eTjagdeepsmitting on:?10/10/2024 10:46 PM EDT History and Physical [...]
--- OUTSIDE RECORDS SUMMARY | 2024-10-10 22:47 | XMS_ITS ---
Author Organization Hilton Pepe MD Address [address] [place], [place] [phone] Care Team Providers Care Bait Painter Name Role Phone Hilton Pepe Primary Care [...] Location Date Provider Diagnosis Hilton Pepe MD [address] [place] [address] [address] [place] [phone] 09/05/2024 Hilton Pepe Toe infection L08.9 ; [...] Reason: Provider Name:Hilton marc, 01/05/2025 10:15:00 AM, [address] [place] [address], [address], [place], [place], [phone], Provider Name:Hilton marc, 03/23/2025 07:15:00 AM, [address], [address], [place], [place], [phone], Provider Name:Hilton [place]oy[place] ier, 03/30/2025 10:30:00 AM, [address], [address], [place], [phone], Provider Name:Hilton [place]oyola ier, 08/31/2025 11:00:00 AM, [address], [address], [place], [place], [phone], Progress Notes * Woody ALFREDO SDOB:1955 ( 69 yo M)Acc No.[id number]:09/05/2024 Progress Notes Patient:?OSCARWoody BURNS S Provider:?Hilton Pepe MD :1955???Age:69 Y???Sex:Male Moncho e:09/05/2024 Address:[address] [place], [place] [phone] Subjective: * Chief Complaints: * ???Left second [...] Pepe MD Date:?0 09/05/2024 Generated for Helena burt/Jc/Asteritting on:?10/10/2024 10:46 PM EDT History and Physical [...]
--- OUTSIDE RECORDS SUMMARY | 2024-10-10 22:47 | XMS_ITS | Patient Health Record ---
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 use of antiplatelet drug (Z79.02) Active confirmed Plan Of Treatment Future Test Test Name Order Date COLONOSCOPY 04/24/2019 Next Appt Details Provider Name:Nicojuhi dsouza Jr, 01/05/2025 01:15:00 PM, [address] [facility], [address], [place], [address], Insurance Providers Payer Name Payer Address Payer Phone Subscriber Number Group Number Insured Name Patient Relationship to Insured Coverage Start Date Coverage End Date [facility] [address] [place] [phone] [id number] ARIES CHAPMAN Self - patient is the insured Medicare of [place] [employer] [address] [place] [address] [id number] ARIES CHAPMAN Self - patient is the insured Medical (General) History Medical History History ICD Code 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
--- OUTSIDE RECORDS SUMMARY | 2024-10-10 22:47 | XMS_ITS | Encounter Summary ---
Author Organization [facility] Address [address] [place] [phone] Phone Care Team Providers Care Ore Trimmer Name Role Phone Hilton Pepe MD Primary Care Provider Encounter Details Date Type Department Care Team (Late st Contact Info) Description 10/07/2024 Treatment [facility] [address] [phone] Yossi Snider MD [facility] [phone] End stage renal disease; Dependence [...] care for end stage renal disease. Attending Insurance Claims Processor: YOSSI SNIDER MD Dialysis Location: [facility] Schedule: Shift: 1 OVERVIEW Patient is stable. HOME MEDICATIONS Medications reviewed. Current [facility] Outpatient Medications aspirin EC tablet [...] time each day Start Date: 01/04/2023 Current [facility] Allergies Allergen: No Known Allergies [...] dialysis documented in this encounter Care Teams Ore Trimmer Relationship Specialty Start Date End Date Hilton Pepe MD [address] [place] [address] [address] [place], [place] PCP - General Internal Medicine 03/23/22 documented as of this encounter
[2024-10-10 23:42] VITALS: BP 142/84; PULSE 94; RESP 18; TEMP 36.5; O2SAT 92
== END 2024-10-10 23:43 | disposition home or self-care (01) ==
PROVIDERS: Emergency Provider Internal Medicine; PCP Internal Medicine
DX: N18.6 End stage renal disease (principal); I25.10 Atherosclerotic heart disease of native coronary artery without angina pectoris; E11.22 Type 2 diabetes mellitus with diabetic chronic kidney disease; Z79.4 Long term (current) use of insulin; Z86.73 Personal history of transient ischemic attack (TIA), and cerebral infarction without residual deficits; Z79.899 Other long term (current) drug therapy
CPT/HCPCS: 71046; 99283; 99284

== ENCOUNTER → 2024-10-10 19:01 | Outpatient (BNV) | payer MEDICARE, SELFPAY | PROVIDERS: PCP Internal Medicine; Visit Provider Radiology Neuroradiology | DX: M61.411 Other calcification of muscle, right shoulder (principal) | CPT/HCPCS: 71046 ==

== ENCOUNTER 2025-03-23 12:50 | Outpatient (REF) | payer MEDICARE, SELFPAY ==
[2025-03-23 12:54] LABS: MANUAL DIFF FLAG NO
[2025-03-23 13:27] LABS: Hematocrit 33.2 % (42.0-52.0); Hemoglobin 10.7 g/dl (14.0-18.0); Imm Gran Abs Auto 0.02 X10*3/uL (0.00-0.03); Imm Gran Pct Auto 0.2 % (0.0-0.4); Lymphocytes Absolute Auto 2.5 X10*3/uL (1.2-4.9); Mean Corpuscular HGB Conc 32.2 g/dl (31.0-36.0); Mean Corpuscular Hemoglobin 31.3 pg (27.0-33.0); Mean Corpuscular Volume 97.1 fL (80.0-98.0); NRBC Abs Auto 0.000 X10*3/uL (0.0-0.012); NRBC Pct Auto 0.0 /100WBC (0.0-0.2); Platelet Count 172 X10*3/uL (160-400); Red Blood Count 3.42 X10*6/uL (4.60-5.80); White Blood Count 8.4 X10*3/uL (4.8-10.8)
[2025-03-23 13:32] LABS: Hemoglobin A1C 127.4430 umol/L; Total Hemoglobin (HGBA1C) 2803.7469 umol/L
[2025-03-23 13:43] LABS: Alanine Aminotransferase 22 U/L (0-40); Albumin Level 4.0 g/dL (3.5-5.0); Alkaline Phosphatase 174 U/L (39-117); Anion Gap 16 (12-20); Aspartate Amino Transferase 43 U/L (5-37); Blood Urea Nitrogen 46 mg/dL (9-16); Calcium 9.1 mg/dL (8.4-10.2); Carbon Dioxide 29 mmol/L (22-29); Chloride 103 mmol/L (96-108); Cholesterol 92 mg/dL (<200); Estimated Glomerular Filt Rate 9; HDL Cholesterol 33 mg/dL (>40); Potassium 5.6 mmol/L (3.3-5.1); Sodium 142 mmol/L (135-145); Total Protein 7.0 g/dL (6.5-8.0); Triglycerides 58 mg/dL (<150)
[2025-03-23 13:55] LABS: PSA,Total (Free>4and<10) 0.60 ng/mL (0.00-4.00)
--- OUTSIDE RECORDS SUMMARY | 2025-03-23 17:41 | XMS_ITS | Encounter Summary ---
Author Organization [facility] Address [address] [facility] [address] [place] [address] Phone Care Team Providers Care Product Expert Name Role Phone Hilton Pepe MD Primary Care Provider Encounter Details Date Type Department Care Team (Late st Contact Info) Description 03/28/2022 Office Communication [facility] [address] [facility] [address] [place] [address] Daria Moore Social History Tobacco [...] on filedocumented in this encounter Care Teams Product Expert Relationship Specialty Start Date End Date Hilton Pepe MD [address] [place] [address] [address] [place] [address] PCP - General Internal Medicine 03/23/22 documented as of this encounter
--- OUTSIDE RECORDS SUMMARY | 2025-03-23 17:41 | XMS_ITS | Clinical Summary ---
Author Organization [facility] Address [address] [place] [address] Phone Care Team Providers Care Metalizing Machine Operator Automatic Name Role Phone Hilton Pepe MD Primary Care Provider Social History Tobacco Use Types Packs/Day Years Used Date Smoking Tobacco: Never Assessed Education Answer Date Recorded Are you interested in more education? Not on melyssa e 11/04/2022 Are you concerned about learning? Not on file 11/04/2022 No 11/04/2022 No 11/04/2022 Digital Access Answer Date Recorded No 12/05/2022 No 12/05/2022 Reliable internet access at home? Not on file 12/05/2022 Device with a working camera? Not on file Sex and Gender Information Value Date Recorded Sex Assigned at Not on file Legal Sex Male 10:24 AM EDT Gender Identity Not on file Sexual Orientation Not on file Plan of Treatment Not on file Medical Devices Not on file Insurance [address] [place] [address] MEDICARE HMO REPLACEMENT MEDICARE HMO REPLACEMENT MEDICARE HMO REPLACEMENT MEDICARE HMO REPLACEMENT MEDICARE HMO REPLACEMENT [facility] [place] MEDICARE HMO REPLACEMENT Care Teams Metalizing Machine Operator Automatic Relationship Specialty Start Date End Date Hilton Pepe MD [address] [place] [address] [place] [address] PCP - General Internal Medicine 07/28/22 Additional Source Comments The information contained in this document represents components of the legal health record. It is not the complete legal health record.[facility]
--- OUTSIDE RECORDS SUMMARY | 2025-03-23 17:41 | XMS_ITS | Clinical Summary ---
Author Organization [facility] Address [address] [place] [phone] Phone Care Team Providers Care Casket Inspector Name Role Phone Hilton Pepe MD Primary [...] Additional Information Patient not taking.Reported on 02/22/2024 midodrine (PROAMATINE) 5 MG tablet Take 1 tablet (5 mg total) by mouth in the morning and 1 tablet (5 mg total) in the evening. 60 tablet 11 5 11/26/19 26 Active Active Problems Problem Noted Date Diagnosed [...] Encounters Date Type Department Care Team Description 03/17/2025 Treatment [facility] [address] [phone] Quinton Snider MD End stage renal disease; Dependence on renal dialysis 03/10/2025 Treatment [facility] [address] [phone] Quinton Snider MD End stage renal disease; Dependence on renal dialysis 03/05/2025 Treatment [facility] [address] [phone] Quinton Snider MD End stage renal disease; Dependence on renal dialysis 02/26/2025 Orders Only [facility] [address] [address] Quinton Snider MD 02/26/2025 Treatment [facility] [address] [address] Quinton Snider MD End stage renal disease; Dependence on renal dialysis 02/24/2025 Treatment [facility] [address] [address] Quinton Snider MD End stage renal disease; Dependence on renal dialysis 02/17/2025 Treatment [facility] [address] [phone] Quinton Snider MD End stage renal disease; Dependence on renal dialysis 02/10/2025 Treatment [facility] [address] [phone] Quinton Snider MD End stage renal disease; Dependence on renal dialysis 02/03/2025 [facility] in Dialysis Clinic [facility] [address] [address] Quinton Snider MD 02/03/2025 Treatment [facility] [address] [address] Quinton Snider MD End stage renal disease; Dependence on renal dialysis 01/29/2025 Treatment [facility] [address] [address] Quinton Snider MD End stage renal disease; Dependence on renal dialysis 01/27/2025 Treatment [facility] [address] [address] Quinton Snider MD End stage renal disease; Dependence on renal dialysis 01/20/2025 Treatment [facility] [address] [address] Quinton Snider MD End stage renal disease; Dependence on renal dialysis 01/13/2025 Treatment [facility] [address] [address] Quinton Snider MD End stage renal disease; Dependence on renal dialysis 12/23/2024 Treatment [facility] [address] [address] Quinton Snider MD End stage renal disease; Dependence on renal dialysis from Last 3 Months Immunizations Immunization Administration Dates Next Due Influenza (IM) Preservative [...] Visual Foot Exam 03/28/2022 Influenza Vaccine (#1) 2025 , 04/28/2022, 03/18/2021, Additional history exists Diabetes: Hemoglobin A1C 04/17/2025 025, 10/09/2024, 07/17/2024 Pneumococcal Vaccine: 50+ Years Completed 02/21/2021, 05/28/2017, 12/17/2015, Additional history exists Procedures Procedure Name Priority Date/Time Associated Diagnosis Comments LI () Routine 03/19/2025 3:00 AM EDT POTASSIUM Routine 03/19/2025 3:00 AM EDT HEPATITIS B SURFACE ANTIGEN W/REFL CONFIRM Routine 03/12/2025 3:00 AM EDT TRANSFERRIN SATURATION Routine 3:00 AM EDT PROTEIN, TOTAL, SERUM Routine 03/12/2025 3:00 AM EDT ELECTROLYTE PANEL Routine 03/12/2025 3:0 0 AM EDT MAGNESIUM Routine 03/12/2025 3:00 AM EDT LACTATE DEHYDROGENASE Routine 03/12/2025 3:00 AM EDT LIH () Routine 03/12/2025 3:00 AM EDT GLUCOSE, RANDOM Routine 03/12/2025 3:00 AM EDT CREATININE, SERUM Routine 03/12/2025 3:0 0 AM EDT BILIRUBIN, TOTAL Routine 03/12/2025 3:00 AM EDT BUN/CREATININE RATIO Routine 03/12/2025 3:00 AM EDT AST Routine 03/12/2025 3:00 AM EDT ALT Routine 03/12/2025 3:00 AM EDT CALCIUM PHOSPHORUS PRODUCT, ADJUSTED (HC) Routine 03/12/2025 3:00 AM EDT ALKALINE PHOSPHATASE Routine 03/12/2025 3:00 AM EDT FERRITIN Routine 03/12/2025 3:00 AM EDT KT/V NATURAL LOG, URR (HC) Routine 03/12/2025 3:00 AM EDT CBC AND DIFFERENTIAL Routine 03/12/2025 3:00 AM EDT HEMOGLOBIN AND HEMATOCRIT, BLOOD Routine 02/26/2025 3:00 AM EDT HEMOGLOBIN Routine 02/19/2025 3:00 AM EDT HEPATITIS B SURFACE ANTIGEN W/REFL CONFIRM Routine 02/12/2025 3:00 AM EDT PROTEIN, TOTAL, SERUM Routine 02/12/2025 3:00 AM EDT TRANSFERRIN SATURATION Routine 3:00 AM EDT ELECTROLYTE PANEL Routine 02/12/2025 3:0 0 AM EDT MAGNESIUM Routine 02/12/2025 3:00 AM EDT LIH (HC) Routine 02/12/2025 3:00 AM EDT LACTATE DEHYDROGENASE Routine 02/12/2025 3:00 AM EDT GLUCOSE, RANDOM Routine 02/12/2025 3:00 AM EDT CREATININE, SERUM Routine 02/12/2025 3:0 0 AM EDT BUN/CREATININE RATIO Routine 02/12/2025 3:00 AM EDT BILIRUBIN, TOTAL Routine 02/12/2025 3:00 AM EDT AST Routine 02/12/2025 3:00 AM EDT ALT Routine 02/12/2025 3:00 AM EDT ALKALINE PHOSPHATASE Routine 02/12/2025 3:00 AM EDT CALCIUM PHOSPHORUS PRODUCT, ADJUSTED (HC) Routine 02/12/2025 3:00 AM EDT PTH, INTACT Routine 02/12/2025 3:00 AM EDT FERRITIN Routine 02/12/2025 3:00 AM EDT CBC AND DIFFERENTIAL Routine 02/12/2025 3:00 AM EDT KT/V NATURAL LOG, URR (HC) Routine 02/12/2025 3:00 AM EDT HEMOGLOBIN AND HEMATOCRIT, BLOOD Routine 01/20/2025 3:00 AM EDT HEMOGLOBIN A1C Routine 01/15/2025 3:00 AM EDT HEPATITIS C ABS W/REFLEX RNA DETECTR Routine 01/15/2025 3:00 AM EDT CONFIRMATION TEST HCV Routine 01/15/2025 3:00 AM EDT HEPATITIS B SURFACE ANTIGEN W/REFL CONFIRM Routine 01/15/2025 3:00 AM EDT TRANSFERRIN SATURATION Routine 3:00 AM EDT PROTEIN, TOTAL, SERUM Routine 01/15/2025 3:00 AM EDT ELECTROLYTE PANEL Routine 01/15/2025 3:0 0 AM EDT LIPID PANEL Routine 01/15/2025 3:00 AM EDT MAGNESIUM Routine 01/15/2025 3:00 AM EDT LACTATE DEHYDROGENASE Routine 01/15/2025 3:00 AM EDT LIH (HC) Routine 01/15/2025 3:00 AM EDT CREATININE, SERUM Routine 01/15/2025 3:0 0 AM EDT BUN/CREATININE RATIO Routine 01/15/2025 3:00 AM EDT GLUCOSE, RANDOM Routine 01/15/2025 3:00 AM EDT BILIRUBIN, TOTAL Routine 01/15/2025 3:00 AM EDT AST Routine 01/15/2025 3:00 AM EDT ALT Routine 01/15/2025 3:00 AM EDT CALCIUM PHOSPHORUS PRODUCT, ADJUSTED (HC) Routine 01/15/2025 3:00 AM EDT ALKALINE PHOSPHATASE Routine 01/15/2025 3:00 AM EDT FERRITIN Routine 01/15/2025 3:00 AM EDT PTH, INTACT Routine 01/15/2025 3:00 AM EDT RETICULOCYTES Routine 01/15/2025 3:00 AM EDT CBC AND DIFFERENTIAL Routine 01/15/2025 3:00 AM EDT KT/V NATURAL LOG, URR (HC) Routine 01/15/2025 3:00 AM EDT HEMOGLOBIN Routine 01/01/2025 3:00 AM EDT HEMOGLOBIN AND HEMATOCRIT, BLOOD Routine 12/25/2024 3:00 AM EDT from Last 3 Months Results * LIH (03/19/2025 3:00 AM EDT) Only the most recent of4 resultswithin the time period is included. Pathologist [facility] Lipemia Normal Normal [facility] Icterus Normal Normal [facility] Hemolysis Normal Normal [facility] 03/19/2025 3:00 AM EDT 03/20/2025 2:10 PM EDT us Quinton Snider MD LAB [id number] ICITED RESULTS Final Result Performing Organization Address City/[facility]/ZIP Co de Phone Number APS [facility] [address] [place] [address] * Potassium (03/19/2025 3:00 AM EDT) [facility] Potassium 4.6 3.4 - 5.0 mEq/L [facility] 03/19/2025 3:00 AM EDT 03/20/2025 2:10 PM EDT us Quinton Snider MD LAB BLOOD ORDERABLES Final Resul t Performing Organization Address City/[facility]/ZIP Co de Phone Number [facility] [address] [place] [address] * (ABNORMAL) Kt/V Natural Log, URR (03/12/2025 3:00 AM EDT) Only the most recent of3 resultswithin the time period is included. Treatment Time 212 min [facility] Pre-Weight, lb 94.5 kg [facility] Post-Weight, lb 91.2 kg [facility] Ultrafiltration Rate 10 <=13 mL/kg/hr [facility] Comment: Recommend achieving Ultrafiltration Rate (UFR) <=10 mL/kg/hr References: Precious HERNANDEZ et al. Kidney Int. 2010; 79(2):250-257 BUN 38(H) 7 - 25 mg/dL [facility] BUN Post Dialysis 13 7 - 25 mg/dL [facility] UREA REDUCTION RATIO (%) 66 >=65 % [facility] Kt/V Natural Log 1.26 >=1.2 [facility] 03/12/2025 3:00 AM EDT 03/13/2025 12:46 PM EDT Quinton Snider MD LAB [id number] ICITED RESULTS Final Result Performing Organization Address [facility] Co de Phone Number [facility] [address] [place] [address] * (ABNORMAL) Calcium Phosphorus Product, Adjusted (03/12/2025 3:00 AM EDT) Only the most recent of3 resultswithin the time period is included. Pathologist [facility] Albumin 3.4(L) 3.6 - 5.4 g/dL [facility] Calcium 7.4(L) 8.6 - 10.3 mg/dL [facility] Phosphorus, Serum 3.5 2.5 - 5.0 mg/dL [facility] Ca*PO4 25.9 <55.0 mg2/dL2 [facility] Calcium, Adjusted Total 7.9(L) 8.6 - 10.3 mg/dL [facility] CA*PO4 CORRCTD 27.6 <55.0 mg2/dL2 [facility] 03/12/2025 3:00 AM EDT 03/13/2025 12:46 PM EDT Quinton Snider MD LAB [id number] ICITED RESULTS Final Result Performing Organization Address [facility]/ZIP Co de Phone Number [facility] [address] [place] [address] * Hepatitis B Surface Ag w/Reflex Confirmation (03/12/2025 3:00 AM EDT) Only the most recent of3 resultswithin the time period is included. Hep B Surface Antigen Negative Negative [facility] 03/12/2025 3:00 AM EDT 03/13/2025 12:46 PM EDT us Quinton Snider MD LAB BLOOD ORDERABLES Final Resul t Performing Organization Address [facility] de Phone Number [facility] [address] [place] [address] * BUN/CREATININE RATIO (03/12/2025 3:00 AM EDT) Only the most recent of3 resultswithin the time period is included. BUN/Creatinine Ratio 7.3 <=23.0 [facility] 03/12/2025 3:00 AM EDT 03/13/2025 12:46 PM EDT us Quinton Snider MD LAB [id number] ICITED RESULTS Final Result Performing Organization Address [facility] de Phone Number [facility] [address] [place] [address] * (ABNORMAL) TSAT (03/12/2025 3:00 AM EDT) Only the most recent of3 resultswithin the time period is included. Iron 71 65 - 175 ug/dL [facility] Transferrin 118(L) 215 - 365 mg/dL [facility] TIBC 165(L) 211 - 406 ug/dL [facility] Iron Saturation (TSat) 43 22 - 52 % [facility] 03/12/2025 3:00 AM EDT 03/13/2025 12:46 PM EDT us Quinton Snider MD LAB BLOOD ORDERABLES Final Resul t Performing Organization Address [facility] de Phone Number [facility] [address] [place] [address] * (ABNORMAL) CBC and Differential (03/12/2025 3:00 AM EDT) Only the most recent of3 resultswithin the time period is included. Pathologist [facility] DIFFERENTIAL MANUAL, 2 Not Indicated [facility] White Blood Cells 9.0 4.2 - 9.1 K/uL [facility] RBC 3.32(L) 4.63 - 6.08 M/uL [facility] Hgb 10.3(L) 13.7 - 17.5 g/dL [facility] Hemoglobin x 3 30.9(L) 41.1 - 52.5 g/dL [facility] Hematocrit 32.8(L) 40.1 - 51.0 % [facility] MCV 98.8(H) 79.0 - 92.2 fL [facility] MCH 31.0 25.7 - 32.2 pg [facility] MCHC 31.4(L) 32.3 - 36.5 g/dL [facility] RDW 14.0 11.6 - 14.4 % [facility] Platelets 154(L) 163 - 337 K/uL [facility] MPV 12.3 9.1 - 13.0 fL [facility] Neutrophils Relative 67.7 34.0 - 67.9 % [facility] Lymphocytes Relative 21.2(L) 21.8 - 53.1 % [facility] Monocytes 7.3 5.3 - 12.2 % [facility] Eosinophils Relative 2.9 0.8 - 7.0 % [facility] Basophils Relative 0.6 0.2 - 1.2 % [facility] Immature Granulocytes 0.3 0.0 - 1.0 % [facility] 03/12/2025 3:00 AM EDT 03/13/2025 12:38 PM EDT Quinton Snider MD LAB BLOOD ORDERABLES Final Resul t [facility] [address] [place] [address] * ALT (03/12/2025 3:00 AM EDT) Only the most recent of3 resultswithin the time period is included. Pathologist [facility] ALT (SGPT) 13 10 - 49 U/L [facility] 03/12/2025 3:00 AM EDT 03/13/2025 12:46 PM EDT us Quinton Snider MD LAB BLOOD ORDERABLES Final Resul t Performing Organization Address [facility] Co de Phone Number [facility] [address] [place] [address] * AST (03/12/2025 3:00 AM EDT) Only the most recent of3 resultswithin the time period is included. AST (SGOT) 17 <34 U/L [facility] 03/12/2025 3:00 AM EDT 03/13/2025 12:46 PM EDT us Quinton Snider MD LAB BLOOD ORDERABLES Final Resul t Performing Organization Address [facility] de Phone Number [facility] [address] [place] [address] * (ABNORMAL) Protein, total (03/12/2025 3:00 AM EDT) Only the most recent of3 resultswithin the time period is included. Total Protein 5.8(L) 6.4 - 8.9 g/dL [facility] 03/12/2025 3:00 AM EDT 03/13/2025 12:46 PM EDT us Quinton Snider MD LAB BLOOD ORDERABLES Final Resul t Performing Organization Address [facility] de Phone Number [facility] [address] [place] [address] * (ABNORMAL) Alkaline phosphatase (03/12/2025 3:00 AM EDT) Only the most recent of3 resultswithin the time period is included. Alkaline Phosphatase 177(H) 46 - 116 U/L [facility] 03/12/2025 3:00 AM EDT 03/13/2025 12:46 PM EDT us Quinton Snider MD LAB BLOOD ORDERABLES Final Resul t Performing Organization Address [facility] Co de Phone Number [facility] [address] [place] [address] * (ABNORMAL) Magnesium (03/12/2025 3:00 AM EDT) Only the most recent of3 resultswithin the time period is included. Magnesium 1.6(L) 1.9 - 2.7 mg/dL [facility] 03/12/2025 3:00 AM EDT 03/13/2025 12:46 PM EDT us Quinton Snider MD LAB BLOOD ORDERABLES Final Resul t Performing Organization Address [facility] de Phone Number [facility] [address] [place] [address] * Lactate dehydrogenase (03/12/2025 3:00 AM EDT) Only the most recent of3 resultswithin the time period is included. LDH 233 120 - 246 U/L [facility] 03/12/2025 3:00 AM EDT 03/13/2025 12:46 PM EDT us Quinton Snider MD LAB BLOOD ORDERABLES Final Resul t Performing Organization Address [facility] de Phone Number [facility] [address] [place] [address] * (ABNORMAL) Glucose, random (03/12/2025 3:00 AM EDT) Only the most recent of3 resultswithin the time period is included. Glucose 174(H) 70 - 99 mg/dL [facility] Comment: ADA guidelines outline the following fasting glucose ranges: Normal: <100 Prediabetes: 100-125 Diabetes: >125 03/12/2025 3:00 AM EDT 03/13/2025 12:46 PM EDT us Quinton Snider MD LAB BLOOD ORDERABLES Final Resul t Performing Organization Address [facility] de Phone Number [facility] [address] [place] [address] * (ABNORMAL) Ferritin (03/12/2025 3:00 AM EDT) Only the most recent of3 resultswithin the time period is included. Ferritin 521(H) 22 - 322 ng/mL [facility] 03/12/2025 3:00 AM EDT 03/13/2025 12:46 PM EDT us Quinton Snider MD LAB BLOOD ORDERABLES Final Resul t Performing Organization Address City/[facility] Co de Phone Number [facility] [address] [place] [address] * (ABNORMAL) Creatinine, serum (03/12/2025 3:00 AM EDT) Only the most recent of3 resultswithin the time period is included. Creatinine 5.22(H) 0.70 - 1.30 mg/dL [facility] 03/12/2025 3:00 AM EDT 03/13/2025 12:46 PM EDT us Quinton Snider MD LAB BLOOD ORDERABLES Final Resul t Performing Organization Address [facility] de Phone Number [facility] [address] [place] [address] * Bilirubin, total (03/12/2025 3:00 AM EDT) Only the most recent of3 resultswithin the time period is included. Total Bilirubin 0.3 0.3 - 1.2 mg/dL [facility] 03/12/2025 3:00 AM EDT 03/13/2025 12:46 PM EDT us Quitnon Snider MD LAB BLOOD ORDERABLES Final Resul t Performing Organization Address [facility] de Phone Number [facility] [address] [place] [address] * Electrolyte panel (03/12/2025 3:00 AM EDT) Only the most recent of3 resultswithin the time period is included. Sodium 141 136 - 145 mEq/L [facility] Potassium 4.0 3.4 - 5.0 mEq/L [facility] Chloride 105 98 - 107 mEq/L [facility] Bicarbonate (CO2) 25 21 - 31 mEq/L [facility] Anion Gap 11 3 - 14 mEq/L [facility] 03/12/2025 3:00 AM EDT 03/13/2025 12:46 PM EDT us Quinton Snider MD LAB BLOOD ORDERABLES Final Resul t Performing Organization Address [facility] de Phone Number [facility] [address] [place] [address] * (ABNORMAL) Hemoglobin and hematocrit (02/26/2025 3:00 AM EDT) Only the most recent of3 resultswithin the time period is included. Hgb 10.0(L) 13.7 - 17.5 g/dL [facility] Hematocrit 31.4(L) 40.1 - 51.0 % [facility] Hemoglobin x 3 30.0(L) 41.1 - 52.5 g/dL [facility] 02/26/2025 3:00 AM EDT 02/27/2025 2:00 PM EDT us Quinton Snider MD LAB BLOOD ORDERABLES Final Resul t Performing Organization Address [facility] de Phone Number [facility] [address] [place] [address] * (ABNORMAL) Hemoglobin (02/19/2025 3:00 AM EDT) Only the most recent of2 resultswithin the time period is included. Hgb 11.1(L) 13.7 - 17.5 g/dL [facility] Hemoglobin x 3 33.3(L) 41.1 - 52.5 g/dL [facility] 02/19/2025 3:0 0 AM EDT 02/20/2025 2:33 PM EDT us Quinton Snider MD LAB BLOOD ORDERABLES Final Resul t Performing Organization Address [facility] de Phone Number [facility] [address] [place] [address] * PTH, Intact (02/12/2025 3:00 AM EDT) Only the most recent of2 resultswithin the time period is included. PTH, Intact 406 160 - 721 pg/mL [facility] Comment: Suggested (KDIGO) ESRD maintenance range is two to nine times the upper normal limit (80.1 pg/mL) for the laboratory. 02/12/2025 3:00 AM EDT 02/13/2025 12:29 PM EDT us Quinton Snider MD LAB BLOOD ORDERABLES Final Resul t Performing Organization Address [facility]/ZIP Co de Phone Number [facility] [address] [place] [address] * Confirmation Test HCV (01/15/2025 3:00 AM EDT) Pathologist [facility] Hep C Ab Confirmation Not needed [facility] 01/15/2025 3:00 AM EDT 01/16/2025 12:12 PM EDT us Quinton Snider MD LAB BLOOD ORDERABLES Final Resul t Performing Organization Address [facility] Co de Phone [facility] [address] [place] [address] * HEPATITIS C ABS W/REFLEX RNA DETECTR (01/15/2025 3:00 AM EDT) Pathologist [facility] Hep C Virus Ab Non-Reacti ve Non-Reacti ve [facility] 01/15/2025 3:00 AM EDT 01/16/2025 12:26 PM EDT us Quinton Snider MD LAB [id number] ICITED RESULTS Final Result Performing Organization Address [facility] Co de Phone Number [facility] [address] [place] [address] * Reticulocytes (01/15/2025 3:00 AM EDT) Pathologist [facility] Reticulocyte 0.7 0.5 - 1.8 % [facility] Retic Ct Pct 34.4 28.2 - 35.7 pg [facility] 01/15/2025 3:00 AM EDT 01/16/2025 12:12 PM EDT us Quinton Snider MD LAB BLOOD ORDERABLES Final Resul t Performing Organization Address [facility] de Phone Number [facility] [address] [place] [address] * (ABNORMAL) Hemoglobin A1c (01/15/2025 3:00 AM EDT) Hemoglobin A1C 5.7(H) <5.7 % [facility] Comment: Methodology: Enzymatic Normal: <5.7% Prediabetes: 5.7-6.4% Diabetes: >6.4% Diabetic Glucose Control Evaluation: Therapeutic action suggested at >8.0% ADA recommends a glycemic goal of <7.0% 01/15/2025 3:00 AM EDT 01/16/2025 12:12 PM EDT us Quinton Snider MD LAB BLOOD ORDERABLES Final Resul t Performing Organization Address [facility] de Phone Number [facility] [address] [place] [address] * (ABNORMAL) Lipid panel (01/15/2025 3:00 AM EDT) Cholesterol 102 mg/dL [facility] Comment: Optimal: <200 Borderline: 200-239 High Risk: >239 Triglycerides 86 mg/dL [facility] Comment: Optimal: <150 Borderline: 150-200 High Risk: >200 HDL 31(L) mg/dL [facility] Comment: Optimal: >59 Borderline: 40-59 High Risk: <40 LDL-Calc 54 mg/dL [facility] Comment: Optimal: <100 Borderline: 100-159 High Risk: >159 VLDL Cholesterol Cristi 17 mg/dL [facility] Comment: Optimal: <30 Borderline: 30-40 High Risk: >40 Chol/HDL Ratio 3.3(H) [facility] Comment: Optimal: <3.3 High Risk: >6.2 01/15/2025 3:00 AM EDT 01/16/2025 12:26 PM EDT us Quinton Snider MD LAB BLOOD ORDERABLES Final Resul t [facility] [address] [place] [address] from Last 3 Months Insurance Care Teams Casket Inspector Relationship Specialty Start Date End Date Hilton Pepe MD [address] [place] [address] [id number] [place], [place] PCP - General Internal Medicine 03/23/22
--- OUTSIDE RECORDS SUMMARY | 2025-03-23 17:41 | XMS_ITS | Encounter Summary ---
Author Organization [facility] Address [address] [place] [phone] Phone Care Team Providers Care Biology Manager Name Role Phone Hilton Pepe MD Primary Care Provider Encounter Details Date Type Department Care Team (Late st Contact Info) Description 02/03/2025 TCM in Dialysis Clinic [facility] [address] [address] Yossi Beck MD [facility] [address] Social History Tobacco Use Types [...] on file documented as of this encounter Progress Notes * Yossi Beck MD - 02/03/2025 12:00 AM EDT Patient: Woody Alfredo : 1955 Note Type: Dialysis TCM Service Date: 02/03/2025 The patient was seen for a dkui-cl-qvjw visit as part of Transitional Care Management services. Attending Enrobing Machine Operator: YOSSI BECK MD Dialysis Location: [facility] Schedule: Shift: 1 INTERACTIVE CONTACT This kbju-sc-fmhy visit occurred within 2 business days of the patient?s discharge. HOSPITALIZATION SUMMARY Patient transitioned from: Hospital Patient transitioned to: Home Admit Date: 01/29/2025 Discharge Date: 02/02/2025 Discharged info reviewed: Followed-up on or reviewed need for pending tests/treatments as noted HOME MEDICATIONS Discharge med list reviewed and reconciled - no changes. Active treatment medication orders reviewed - no changes. PHYSICAL EXAM Exam not performed. DIALYSIS PRESCRIPTION Dry weight during admission reviewed - no change to EDW. CARE COORDINATION Post-discharge follow-up appointments reviewed with the patient. Established or re-established referrals. COMMENTS: Texted dr seth VISIT DIAGNOSES CPT Code 28186 - High complexity, seen within 7 days of discharge. N18.6 End stage renal disease Signed by: YOSSI BECK MD on 02/03/2025 at 09:03:08 AM Transcribed by: YOSSI BECK MD on 02/03/2025 at 09:03:08 AM documented in this encounter Plan of Treatment Not on file documented as of this encounter Visit Diagnoses Not on filedocumented in this encounter Care Teams Biology Manager Relationship Specialty Start Date End Date Hilton Pepe MD [address] [place] [address] [address] [place] [address] PCP - General Internal Medicine 03/23/22 documented as of this encounter
--- OUTSIDE RECORDS SUMMARY | 2025-03-23 17:41 | XMS_ITS | Encounter Summary ---
Author Organization [facility] Address [address] [place] [phone] Phone Care Team Providers Care Progressive Assembler And Fitter Name Role Phone Hilton Pepe MD Primary Care Provider Encounter Details Date Type Department Care Team (Late st Contact Info) Description 03/17/2025 Treatment [facility] [address] [phone] [address]ossi Beck MD [facility] [address] End stage renal disease; Dependence [...] Dialysis Note - Yossi Beck MD - 03/17/2025 12:00 AM EDT BASIC NOTE Patient: Woody Tsang : 1955 Note Author: YOSSI BECK MD Service Date: 03/17/2025 This patient was personally seen rsdz-no-uwwd for a basic visit as part of routine monthly dialysis care for end stage renal disease. Attending Medical Superintendent: YOSSI BECK MD Dialysis Location: [facility] Schedule: Shift: 1 HOME MEDICATIONS Current [facility] Medications aspirin EC tablet Take 81 [...] (one) time each day Start Date: 01/29/2023 midodrine (PROAMATINE) 5 MG tablet Take 1 tablet (5 mg total) by mouth in the morning and 1 tablet (5 mg total) in the evening. Start Date: 11/25/2024 tamsulosin (FLOMAX) 24 hr capsule 0.4 mg Take by mouth 1 (one) time each day Start Date: 07/23/2022 torsemide (DEMADEX) tablet Take 10 mg by mouth 1 (one) time each day Start Date: 01/04/2023 [facility] Allergies Allergen: No Known Allergies ADEQUACY ASSESSMENT Kt/V, Natural Log 1.26 (03/12/25) 1.40 (02/12/25) 1.39 (01/15/25) UREA REDUCTION RATIO (%) 66 (03/12/25) 71 (02/12/25) 71 (01/15/25) BUN 38 (03/12/25) 48 (02/12/25) 52 (01/15/25) BUN Post Dialysis 13 (03/12/25) 14 (02/12/25) 15 (01/15/25) Creatinine 5.22 (03/12/25) 6.30 (02/12/25) 6.45 (01/15/25) Bicarbonate (CO2) 25 (03/12/25) 24 (02/12/25) 26 (01/15/25) Sodium 141 (03/12/25) 138 (02/12/25) 137 (01/15/25) ANEMIA ASSESSMENT Hgb 10.3 (03/12/25) 10.0 (02/26/25) 11.1 (02/19/25) Iron Saturation (TSat) 43 (03/12/25) 46 (02/12/25) 40 (01/15/25) Ferritin 521 (03/12/25) 772 (02/12/25) 545 (01/15/25) Iron 71 (03/12/25) 90 (02/12/25) 83 (01/15/25) TIBC 165 (03/12/25) 197 (02/12/25) 206 (01/15/25) MCV 98.8 (03/12/25) 97.8 (02/12/25) 96.9 (01/15/25) Platelets 154 (03/12/25) 153 (02/12/25) 148 (01/15/25) BMM ASSESSMENT Calcium, Adjusted Total 7.9 03/12/25 8.6 02/12/25 8.8 01/15/25 Calcium 7.4 03/12/25 8.6 02/12/25 8.8 01/15/25 Phosphorus, Serum 3.5 03/12/25 4.0 02/12/25 5.4 01/15/25 Ca*PO4 25.9 03/12/25 34.4 02/12/25 47.5 01/15/25 PTH, Intact 406 02/12/25 466 01/15/25 540 10/09/24 Magnesium 1.6 03/12/25 2.1 02/12/25 1.9 01/15/25 Alkaline Phosphatase 177 03/12/25 259 02/12/25 143 01/15/25 Aluminum 4 07/17/24 NUTRITION ASSESSMENT Albumin 3.4 03/12/25 4.1 02/12/25 4.1 01/15/25 Potassium 4.0 03/12/25 5.0 02/12/25 4.1 01/15/25 Hemoglobin A1C 5.7 01/15/25 6.4 10/09/24 5.6 07/17/24 ADDITIONAL LABS White Blood Cells 9.0 (03/12/25) 9.8 (02/12/25) 7.0 (01/15/25) Cholesterol 102 (01/15/25) 67 (10/09/24) 95 (07/17/24) HDL 31 (01/15/25) 28 (10/09/24) 28 (07/17/24) LDL-Calc 54 (01/15/25) 23 (10/09/24) 49 (07/17/24) Triglycerides 86 (01/15/25) 80 (10/09/24) 92 (07/17/24) Hep B Surface Antibody ?4 (07/17/24) Uric Acid 4.7 (07/17/24) Signed by: YOSSI BECK MD on 03/17/2025 at 12:07:40 PM Transcribed by: YOSSI BECK MD on 03/17/2025 at 12:07:40 PM documented in this encounter Plan of Treatment Not on file documented as of this encounter Visit Diagnoses Diagnosis End stage renal disease Dependence on renal dialysis documented in this encounter Care Teams Progressive Assembler And Fitter Relationship Specialty Start Date End Date Hilton Pepe MD [address] [place] [address] [address] [place] [address] PCP - General Internal Medicine 03/23/22 documented as of this encounter
== END 2025-03-23 12:51 | disposition home or self-care (01) ==
LOC: HO.LNP 12:50
PROVIDERS: Visit Provider Internal Medicine
DX: Z00.00 Encounter for general adult medical examination without abnormal findings (principal); Z12.5 Encounter for screening for malignant neoplasm of prostate; E11.22 Type 2 diabetes mellitus with diabetic chronic kidney disease; N18.4 Chronic kidney disease, stage 4 (severe); I50.21 Acute systolic (congestive) heart failure; E78.5 Hyperlipidemia, unspecified
CPT/HCPCS: 80053; 80061; 83036; 84153; 85025

== ENCOUNTER 2025-03-25 13:01 | Outpatient (AMB) | payer MEDICARE, SELFPAY ==
[2025-03-25 13:03] VITALS: BP 120/60; PULSE 94; BMI 28.0
--- NOTE | 2025-03-25 13:03 | A.OFFVIS_ITS ---
Vital Signs 03/25/25 13:03 Height 5 ft 11 in Weight 200 lb 9.93 oz BMI 28.0 BP 120/60 Blood Pressure Location Rt brachial Position Sitting Pulse 94 Pulse Source Pulse Oximeter Intake Visit Reasons: 6 mth f/up Allergies No Known Allergies Allergy (Verified 10/10/24 18:44) Medication List - Last Reviewed 03/25/25 by Afua Charles aspirin 81 mg PO DAILY atorvastatin 80 mg PO BEDTIME famotidine 20 mg PO DAILY midodrine 5 mg PO BID sevelamer carbonate 800 mg PO DAILY tamsulosin 0.4 mg PO DAILY HPI Comments Details: Woody returns for follow up. Previously going to [facility], but then switched to [facility]. To recall, he underwent cardiac catheterization in 2022 for anterior STEMI. At that time, diagnosed to have three-vessel disease. Occluded proximal LAD, thoug ht to be culprit. He also had severe stenosis in the proximal circumflex and presumed occluded RCA with cqkf-yb-hwgtc collaterals. Underwent PCI to LAD. Otherwise, he has ESRD and recently started hemodialysis. From the cardiac standpoint, he states he is feeling good. He has got no cardiac symptoms. Previously, we have discussed about ICD placement but he is not interested in it. [facility] Medical History CKD (chronic kidney disease) Incomplete bladder emptying Obstructive uropathy Non-insulin dependent type 2 diabetes mellitus CKD (chronic kidney disease) stage 3, GFR 30-59 ml/min Heart failure Hyperlipidemia STEMI (ST elevation myocardial infarction) CAD (coronary artery disease) CVA (cerebral vascular accident) Family History Mother No problems noted. Father No problems noted. Social History Household Members: Family Household Members Other:: and daughter Housing: House Do you presently have visiting nurse or other home services: No Patient Tobacco Use Status: Never used Tobacco Second Hand Smoke Exposure: No Advance Directives Date on File: 02/29/24 service: No Review of Systems Const Denies weakness ENT Denies dizziness Card Denies chest pain, Denies chest pain with activity, Denies syncope, Denies rapid heart rate, Denies pedal edema, Denies edema, Denies leg edema, Denies lightheadedness, Denies palpitations, Denies dyspnea, Denies dyspnea on exertion and Denies orthopnea Resp Denies cough, Denies dyspnea and Denies dyspnea on exertion GI Denies hematochezia and Denies change in stool character Musc Denies abnormal gait, Denies muscle cramps, Denies muscle weakness, Denies numbness, Denies radiating pain into limb and Denies tingling Neuro Denies abnormal gait, Denies dizziness, Denies syncope, Denies numbness, Denies tingling and Denies weakness Endo Denies palpitations Physical Exam Vital Signs: Last Vital Signs Pulse 94 03/25/25 13:03 BP 120/60 03/25/25 13:03 BMI result Body Mass Index 28.0 Const General: comfortable and no acute distress Orientation/consciousness: patient oriented x3 HEENT Other: Unremarkable Head: Yes normal to inspection Neck Neck: Yes normal visual inspection Chest Chest palpation & inspection: normal inspection of the chest Resp Auscultation: clear to auscultation bilaterally Cardio Palpation: normal PMI Heart sounds: S1 normal heart sound present, S2 normal heart sound present, no gallops, no murmurs and no rubs GI Palpation (GI): Soft to palpation Back/Spine/Pelvis Other: unremarkable Skin General skin exam: no rashes or lesions noted Neuro General: patient oriented x3 Extrem General: Yes normal to inspection Psych Mental Status: mental status grossly normal Assessment & Plan Assessment & Plan (1) Atherosclerotic cardiovascular disease: Code(s): I25.10 - Atherosclerotic heart disease of [place] coronary artery without angina pectoris Category: Medical Plan: In the cardiac catheterization from 07/20229343-mafgy-rhujfy disease. Occluded proximal LAD thought to be the culprit. Severe proximal circumflex stenosis. Presumed occluded RCA with gdvu-dn-anjui collaterals. Status post PCI to LAD. Clinically, no cardiac symptoms at all. No angina. Continue long-term aspirin. We can stop Plavix. Continue statins. He was on beta-blockers but not anymore. He states his blood pressure is too low and he is now on midodrine. (2) Ischemic cardiomyopathy: Code(s): I25.5 - Ischemic cardiomyopathy Category: Medical Plan: In the echocardiogram, LVEF is 29%. Wall motion abnormalities related underlying coronary disease. Previous levels are 30-35% and 20-25%. We again discussed about ICD and he states he is not interested. He would like to leave it as it is. (3) ESRD (end stage renal disease) on dialysis: Code(s): N18.6 - End stage renal disease; Z99.2 - Dependence on renal dialysis Category: Medical Plan: On dialysis. Coding Level of Care Code Est Pt Level 4 (50885) Complex EM visit Add On G2211 Diagnoses Atherosclerotic cardiovascular disease I25.10 Ischemic cardiomyopathy I25.5 ESRD (end stage renal disease) on dialysis N18.6; Z99.2
--- OUTSIDE RECORDS SUMMARY | 2025-03-25 16:31 | XMS_ITS | Encounter Summary ---
Author Organization [facility] Address [address] [place] [phone] Phone Care Team Providers Care Painter Drum Name Role Phone Hilton Pepe MD Primary Care Provider Encounter Details Date Type Department Care Team (Late st Contact Info) Description 02/03/2025 TCM in Dialysis Clinic [facility] [address] [phone] Yossi Beck MD [facility] [address] [address] Social History Tobacco Use Types [...] 02/03/2025 The patient was seen for a qxfz-gh-yuel visit as part of Transitional Care Management services. Attending Airline Station Agent: YOSSI BECK MD Dialysis Location: [facility] Schedule: Shift: 1 INTERACTIVE CONTACT This gdtt-yc-glia visit occurred within 2 business days of [...] Texted dr seth VISIT DIAGNOSES CPT Code 67428 - High complexity, seen within 7 days of discharge. N18.6 End stage renal disease Signed by: YOSSI BECK MD on 02/03/2025 at 09:03:08 AM Transcribed by: YOSSI BECK MD on 02/03/2025 at 09:03:08 AM documented in this encounter Plan of Treatment Not on file documented as of this encounter Visit Diagnoses Not on filedocumented in this encounter Care Teams Painter Drum Relationship Specialty Start Date End Date Hilton Pepe MD [address] [place] [address] [address] [place] [address] PCP - General Internal Medicine 03/23/22 documented as of this encounter
--- OUTSIDE RECORDS SUMMARY | 2025-03-25 16:31 | XMS_ITS | Clinical Summary ---
Author Organization [facility] Address [address] [place] [address] Phone Care Team Providers Care Fiber Product Cutting Machine Operator Name Role Phone Hilton Pepe MD [...] file Medical Devices Not on file [place] [address] MEDICARE HMO REPLACEMENT MEDICARE HMO REPLACEMENT MEDICARE HMO REPLACEMENT MEDICARE HMO REPLACEMENT MEDICARE HMO REPLACEMENT [facility] [place] MEDICARE HMO REPLACEMENT Care Teams Fiber Product Cutting Machine Operator Relationship Specialty Start Date End Date Hilton Pepe MD [address] [place] [address] [place] [address] PCP - General Internal Medicine 07/28/22 Additional Source Comments The information contained in this document represents components of the legal health record. It is not the complete legal health record.[facility]
--- OUTSIDE RECORDS SUMMARY | 2025-03-25 16:32 | XMS_ITS | Encounter Summary ---
Author Organization [facility] Address [address] [place] [phone] Phone Care Team Providers Care Cash Management Associate Name Role Phone Hilton Pepe MD Primary Care Provider Encounter Details Date Type Department Care Team (Late st Contact Info) Description 03/24/2025 Treatment [facility] [address] [phone] Yossi Beck MD [facility] [address] [address] End stage renal disease; Dependence [...] Dialysis Note - Yossi Beck MD - 03/24/2025 12:00 AM EDT BASIC NOTE Patient: Woody Tsang : 1955 Note Author: YOSSI BECK MD Service Date: 03/24/2025 This patient was personally seen stuo-no-wgfi for a basic visit as part of routine monthly dialysis care for end stage renal disease. Attending Swimming Pool Plasterer Helper: YOSSI BECK MD Dialysis Location: [facility] Schedule: Shift: 1 HOME MEDICATIONS Current [...] 3.4 03/12/25 4.1 02/12/25 4.1 01/15/25 Potassium 4.6 03/19/25 4.0 03/12/25 5.0 02/12/25 Hemoglobin A1C 5.7 01/15/25 6.4 10/09/24 5.6 07/17/24 ADDITIONAL LABS White Blood Cells 9.0 (03/12/25) 9.8 (02/12/25) 7.0 (01/15/25) Cholesterol 102 (01/15/25) 67 (10/09/24) 95 (07/17/24) HDL 31 (01/15/25) 28 (10/09/24) 28 (07/17/24) LDL-Calc 54 (01/15/25) 23 (10/09/24) 49 (07/17/24) Triglycerides 86 (01/15/25) 80 (10/09/24) 92 (07/17/24) Hep B Surface Antibody ?4 (07/17/24) Uric Acid 4.7 (07/17/24) Signed by: YOSSI BECK MD on 03/24/2025 at 08:51:12 AM Transcribed by: YOSSI BECK MD on 03/24/2025 at 08:51:12 AM documented in this encounter Plan of Treatment Not on file documented as of this encounter Visit Diagnoses Diagnosis End stage renal disease Dependence on renal dialysis documented in this encounter Care Teams Cash Management Associate Relationship Specialty Start Date End Date Hilton Pepe MD [address] [place] [address] [address] [place] [address] PCP - General Internal Medicine 03/23/22 documented as of this encounter
--- OUTSIDE RECORDS SUMMARY | 2025-03-25 16:32 | XMS_ITS | Clinical Summary ---
Author Organization [facility] Address [address] [place] [phone] Phone Care Team Providers Care Prosthetic Dentist Name Role Phone Hilton Pepe MD Primary [...] Encounters Date Type Department Care Team Description 03/24/2025 Treatment [facility] [address] [phone] Quinton Snider MD End stage renal disease; Dependence on renal dialysis 03/17/2025 Treatment [facility] [address] [phone] Quinton Snider MD End stage renal disease; Dependence on renal dialysis 03/10/2025 Treatment [facility] [address] [address] Quinton Snider MD End stage renal disease; Dependence on renal dialysis 03/05/2025 Treatment [facility] [address] [address] Quinton Snider MD End stage renal disease; Dependence on renal dialysis 02/26/2025 Orders Only [facility] [address] [phone] Quinton Snider MD 02/26/2025 Treatment [facility] [address] [phone] Quinton Snider MD End stage renal disease; Dependence on renal dialysis 02/24/2025 Treatment [facility] [address] [phone] Quinton Snider MD End stage renal disease; Dependence on renal dialysis 02/17/2025 Treatment [facility] [address] [phone] Quinton Snider MD End stage renal disease; Dependence on renal dialysis 02/10/2025 Treatment [facility] [address] [phone] Quinton Snider MD End stage renal disease; Dependence on renal dialysis 02/03/2025 TCM in Dialysis Clinic [facility] [address] [phone] Quinton Snider MD 02/03/2025 Treatment [facility] [address] [address] Quinton Snider MD End stage renal disease; Dependence on renal dialysis 01/29/2025 Treatment [facility] [address] [phone] Quinton Snider MD End stage renal disease; Dependence on renal dialysis 01/27/2025 Treatment [facility] [address] [phone] Quinton Snider MD End stage renal disease; Dependence on renal dialysis 01/20/2025 Treatment [facility] [address] [phone] Quinton Snider MD End stage renal disease; Dependence on renal dialysis 01/13/2025 Treatment [facility] [address] [facility] [address] [place] [phone] Quinton Snider MD End stage renal disease; Dependence on renal dialysis 12/23/2024 Treatment [facility] [address] [facility] [address] [place] [phone] Quinton Snider MD End stage renal disease; [...] Procedure Name Priority Date/Time Associated Diagnosis Comments LIH () Routine 03/19/2025 3:00 AM EDT POTASSIUM Routine 03/19/2025 3:00 AM EDT HEPATITIS B SURFACE ANTIGEN W/REFL CONFIRM Routine 03/12/2025 3:00 AM EDT TRANSFERRIN SATURATION Routine 3:00 AM EDT PROTEIN, TOTAL, SERUM Routine 03/12/2025 3:00 AM EDT ELECTROLYTE PANEL Routine 03/12/2025 3: 00 AM EDT MAGNESIUM Routine 03/12/2025 3:00 AM [...] PM EDT us Quinton Snider MD LAB [id number] ICITED RESULTS Final Result Performing Organization Address City/[facility]/ZIP Co de Phone Number [facility] [address] [place] [address] * Potassium (03/19/2025 3:00 AM EDT) Potassium 4.6 3.4 - 5.0 mEq/L [facility] 03/19/2025 3:00 AM EDT 03/20/2025 2:10 PM EDT us Quinton Snider MD LAB BLOOD ORDERABLES Final Resul t Performing Organization Address City/[facility] Co de Phone Number [facility] [address] [place] [address] * (ABNORMAL) Kt/V Natural Log, URR (03/12/2025 [...] 12:46 PM EDT Quinton Snider MD LAB [id number] ICITED RESULTS Final Result [facility] [address] [place] [address] * (ABNORMAL) Calcium Phosphorus Product, Adjusted (03/12/2025 3:00 AM EDT) Only the most recent of3 resultswithin the time period is included. Albumin 3.4(L) 3.6 - 5.4 g/dL [facility] Calcium 7.4(L) 8.6 - 10.3 mg/dL [facility] Phosphorus, Serum 3.5 2.5 - 5.0 mg/dL [facility] Ca*PO4 25.9 <55.0 mg2/dL2 [facility] Calcium, Adjusted Total 7.9(L) 8.6 - 10.3 mg/dL [facility] CA*PO4 CORRCTD 27.6 <55.0 mg2/dL2 [facility] 03/12/2025 3:00 AM EDT 03/13/2025 12:46 PM EDT us Quinton Snider MD LAB [id number] ICITED RESULTS Final Result Performing Organization Address City/[facility]/ZIP Co de Phone Number [facility] [address] [place] [address] * Hepatitis B Surface Ag w/Reflex Confirmation (03/12/2025 3:00 AM EDT) Only the most recent of3 resultswithin the time period is included. Hep B Surface Antigen Negative Negative [facility] 03/12/2025 3:00 AM EDT 03/13/2025 12:46 PM EDT us Quinton Snider MD LAB BLOOD ORDERABLES Final Resul t Performing Organization Address [facility] Co de Phone Number [facility] [address] [place] [address] * BUN/CREATININE RATIO (03/12/2025 3:00 AM EDT) Only the most recent of3 resultswithin the time period is included. BUN/Creatinine Ratio 7.3 <=23.0 [facility] 03/12/2025 3:00 AM EDT 03/13/2025 12:46 PM EDT us Quinton Snider MD LAB [id number] ICITED RESULTS Final Result Performing Organization Address City/[facility] de Phone Number [facility] [address] [place] [address] * (ABNORMAL) TSAT (03/12/2025 3:00 AM EDT) [...] ORDERABLES Final Resul t Performing Organization Address City/[facility]/ZIP Co de Phone Number [facility] [address] [place] [address] * (ABNORMAL) CBC and Differential (03/12/2025 3:00 AM EDT) Only the most recent of3 resultswithin the time period is included. DIFFERENTIAL [...] ORDERABLES Final Resul t Performing Organization Address City/[facility]/ZIP Co de Phone Number [facility] [address] [place] [address] * ALT (03/12/2025 3:00 AM EDT) Only the most recent of3 resultswithin the time period is included. ALT (SGPT) 13 10 - 49 U/L [facility] 03/12/2025 3:00 AM EDT 03/13/2025 12:46 PM EDT us Quinton Snider MD LAB BLOOD ORDERABLES Final Resul t Performing Organization Address [facility] Co de Phone Number [facility] [address] [place] [address] * AST (03/12/2025 3:00 AM EDT) Only the most recent of3 resultswithin the time period is included. AST (SGOT) 17 <34 U/L [facility] 03/12/2025 3:00 AM EDT 03/13/2025 12:46 PM EDT us Quinton Snider MD LAB BLOOD ORDERABLES Final Resul t Performing Organization Address [facility] de Phone Number [facility] [address] [place] [address] * (ABNORMAL) Protein, total (03/12/2025 3:00 AM EDT) Only the most recent of3 resultswithin the time period is included. Total Protein 5.8(L) 6.4 - 8.9 g/dL [facility] 03/12/2025 3:00 AM EDT 03/13/2025 12:46 PM EDT us Quinton Snider MD LAB BLOOD ORDERABLES Final Resul t Performing Organization Address [facility] de Phone Number [facility] [address] [place] [address] * (ABNORMAL) Alkaline phosphatase (03/12/2025 3:00 AM EDT) Only the most recent of3 resultswithin the time period is included. Alkaline Phosphatase 177(H) 46 - 116 U/L [facility] 03/12/2025 3:00 AM EDT 03/13/2025 12:46 PM EDT us Quinton Snider MD LAB BLOOD ORDERABLES Final Resul t Performing Organization Address [facility] de Phone Number [facility] [address] [place] [address] * (ABNORMAL) Magnesium (03/12/2025 3:00 AM EDT) Only the most recent of3 resultswithin the time period is included. Magnesium 1.6(L) 1.9 - 2.7 mg/dL [facility] 03/12/2025 3:00 AM EDT 03/13/2025 12:46 PM EDT us Quinton Snider MD LAB BLOOD ORDERABLES Final Resul t Performing Organization Address [facility] de Phone Number [facility] [address] [place] [address] * Lactate dehydrogenase (03/12/2025 3:00 AM EDT) Only the most recent of3 resultswithin the time period is included. LDH 233 120 - 246 U/L [facility] 03/12/2025 3:00 AM EDT 03/13/2025 12:46 PM EDT us Quinton Snider MD LAB BLOOD ORDERABLES Final Resul t Performing Organization Address [facility] Phone Number [facility] [address] [place] [address] * (ABNORMAL) Glucose, random (03/12/2025 3:00 AM [...] Resul t Performing Organization Address [facility] Co de Phone Number [facility] [address] [place] [address] * (ABNORMAL) Ferritin (03/12/2025 3:00 AM EDT) Only the most recent of3 resultswithin the time period is included. Ferritin 521(H) 22 - 322 ng/mL [facility] 03/12/2025 3:00 AM EDT 03/13/2025 12:46 PM EDT us Quinton Snider MD LAB BLOOD ORDERABLES Final Resul t Performing Organization Address [facility] de Phone Number [facility] [address] [place] [address] * (ABNORMAL) Creatinine, serum (03/12/2025 3:00 AM EDT) Only the most recent of3 resultswithin the time period is included. Creatinine 5.22(H) 0.70 - 1.30 mg/dL [facility] 03/12/2025 3:00 AM EDT 03/13/2025 12:46 PM EDT us Quinton Snider MD LAB BLOOD ORDERABLES Final Resul t Performing Organization Address [facility] de Phone Number [facility] [address] [place] [address] * Bilirubin, total (03/12/2025 3:00 AM EDT) Only the most recent of3 resultswithin the time period is included. Total Bilirubin 0.3 0.3 - 1.2 mg/dL [facility] 03/12/2025 3:00 AM EDT 03/13/2025 12:46 PM EDT us Quinton Snider MD LAB BLOOD ORDERABLES Final Resul t Performing Organization Address [facility] Co de Phone Number [facility] [address] [place] [address] * Electrolyte panel (03/12/2025 3:00 AM EDT) [...] Resul t Performing Organization Address [facility] Co de Phone Number [facility] [address] [place] [address] * (ABNORMAL) Hemoglobin and hematocrit (02/26/2025 3:00 [...] ORDERABLES Final Resul t Performing Organization Address City/[facility]/ZIP Co de Phone Number [facility] [address] [place] [address] * (ABNORMAL) Hemoglobin (02/19/2025 3:00 AM EDT) Only the most recent of2 resultswithin the time period is included. Hgb 11.1(L) 13.7 - 17.5 g/dL [facility] Hemoglobin x 3 33.3(L) 41.1 - 52.5 g/dL [facility] 02/19/2025 3:00 AM EDT 02/20/2025 2:33 PM EDT us Quinton Snider MD LAB BLOOD ORDERABLES Final Resul t Performing Organization Address [facility] Co de Phone Number [facility] [address] [place] [address] * PTH, Intact (02/12/2025 3:00 AM EDT) [...] ORDERABLES Final Resul t Performing Organization Address [facility] de Phone Number [facility] [address] [place] [address] * Confirmation Test HCV (01/15/2025 3:00 AM EDT) Hep C Ab Confirmation Not needed [facility] 01/15/2025 3:00 AM EDT 01/16/2025 12:12 PM EDT us Quinton Snider MD LAB BLOOD ORDERABLES Final Resul t Performing Organization Address [facility] de Phone Number [facility] [address] [place] [address] * HEPATITIS C ABS W/REFLEX RNA DETECTR (01/15/2025 3:00 AM EDT) Hep C Virus Ab Non-Reacti ve Non-Reacti ve [facility] 01/15/2025 3:00 AM EDT 01/16/2025 12:26 PM EDT us Quinton Snider MD LAB [id number] ICITED RESULTS Final Result Performing Organization Address [facility] Co de Phone Number [facility] [address] [place] [address] * Reticulocytes (01/15/2025 3:00 AM EDT) Reticulocyte 0.7 0.5 - 1.8 % [facility] Retic Ct Pct 34.4 28.2 - 35.7 pg [facility] 01/15/2025 3:00 AM EDT 01/16/2025 12:12 PM EDT Quinton Snider MD LAB BLOOD ORDERABLES Final Resul t Performing Organization Address [facility] de Phone Number [facility] [address] [place] [address] * (ABNORMAL) Hemoglobin A1c (01/15/2025 3:00 AM EDT) Hemoglobin A1C 5.7(H) <5.7 % [facility] Comment: Methodology: Enzymatic Normal: <5.7% Prediabetes: 5.7-6.4% Diabetes: >6.4% Diabetic Glucose Control Evaluation: Therapeutic action suggested at >8.0% ADA recommends a glycemic goal of <7.0% 01/15/2025 3:00 AM EDT 01/16/2025 12:12 PM EDT us Quinton Snider MD LAB BLOOD ORDERABLES Final Resul t Performing Organization Address [facility] de Phone Number [facility] [address] [place] [address] * (ABNORMAL) Lipid panel (01/15/2025 3:00 AM [...] Final Resul t [facility] [address] [place] [address] from Last 3 Months Insurance Care Teams Prosthetic Dentist Relationship Specialty Start Date End Date Hilton Pepe MD [address] [place] [address] [address] [place] [address] PCP - General Internal Medicine 03/23/22
--- OUTSIDE RECORDS SUMMARY | 2025-03-25 16:32 | XMS_ITS | Encounter Summary ---
Author Organization [facility] Address [address] [facility] [address] [address] [place] [address] Phone Care Team Providers Care Publications Writer Name Role Phone Hilton Pepe MD Primary Care Provider Encounter Details Date Type Department Care Team (Late st Contact Info) Description 03/28/2022 Office Communication [facility] [address] [facility] [address] [place] [phone] Daria Moore Social History Tobacco [...] on filedocumented in this encounter Care Teams Publications Writer Relationship Specialty Start Date End Date Hilton Pepe MD [address] [place] [address] [address] [place] [address] PCP - General Internal Medicine 03/23/22 documented as of this encounter
== END 2025-03-25 13:26 | disposition home or self-care (01) ==
LOC: HO.HCS 13:02
PROVIDERS: PCP Internal Medicine; Visit Provider Internal Medicine
DX: I25.10 Atherosclerotic heart disease of native coronary artery without angina pectoris (principal); I25.5 Ischemic cardiomyopathy; N18.6 End stage renal disease; Z99.2 Dependence on renal dialysis
CPT/HCPCS: 99214; G2211

== ENCOUNTER → 2025-03-25 13:01 | Outpatient (BNVA) | payer MEDICARE, SELFPAY | PROVIDERS: PCP Internal Medicine; Visit Provider Internal Medicine | DX: I25.10 Atherosclerotic heart disease of native coronary artery without angina pectoris (principal); I25.5 Ischemic cardiomyopathy; N18.6 End stage renal disease; Z99.2 Dependence on renal dialysis | CPT/HCPCS: 99212 ==

== ENCOUNTER → 2025-04-14 14:41 | Outpatient (BNV) | payer MEDICARE, SELFPAY | PROVIDERS: PCP Internal Medicine; Visit Provider Radiology Diagnostic Radiology | DX: S62.632D Displaced fracture of distal phalanx of right middle finger, subsequent encounter for fracture with routine healing (principal); S62.631D Displaced fracture of distal phalanx of left index finger, subsequent encounter for fracture with routine healing; M25.872 Other specified joint disorders, left ankle and foot | CPT/HCPCS: 73630 ==

== ENCOUNTER 2025-04-29 11:53 | Day surgery (SDC) | payer MEDICARE, SELFPAY ==
--- OUTSIDE RECORDS SUMMARY | 2025-04-06 16:59 | XMS_ITS | Clinical Summary ---
Author Organization [facility] Address [address] [place] [phone] Phone Care Team Providers Care Obstetrics Technician Name Role Phone Hilton Pepe MD [...] Encounters Date Type Department Care Team Description 03/31/2025 Treatment [facility] [address] [address] Quinton Snider MD End stage renal disease; Dependence on renal dialysis 03/24/2025 Treatment [facility] [address] [address] Quinton Snider MD End stage renal disease; Dependence on renal dialysis 03/17/2025 Treatment [facility] [address] [address] Quinton Snider MD End stage renal disease; Dependence on renal dialysis 03/10/2025 Treatment [facility] [address] [address] Quinton Snider MD End stage renal disease; Dependence on renal dialysis 03/05/2025 Treatment [facility] [address] [address] Quinton Snider MD End stage renal disease; Dependence on renal dialysis 02/26/2025 Orders Only [facility] [address] [address] Quinton Snider MD 02/26/2025 Treatment [facility] [address] [address] Quinton Snider MD End stage renal disease; Dependence on renal dialysis 02/24/2025 Treatment [facility] [address] [address] Quinton Snider MD End stage renal disease; Dependence on renal dialysis 02/17/2025 Treatment [facility] [address] [address] Quinton Snider MD End stage renal disease; Dependence on renal dialysis 02/10/2025 Treatment [facility] [address] [address] Quinton Snider MD End stage renal disease; Dependence on renal dialysis 02/03/2025 [facility] in Dialysis Clinic [facility] [address] [address] Quinton Snider MD 02/03/2025 Treatment [facility] [address] [address] Quinton Snider MD End stage renal disease; Dependence on renal dialysis 01/29/2025 Treatment [facility] [address] [address] Quinton Snider MD End stage renal disease; Dependence on renal dialysis 01/27/2025 Treatment [facility] [address] [address] Quinton Snider MD End stage renal disease; Dependence on renal dialysis 01/20/2025 Treatment [facility] [address] [facility] [address] [place] [phone] Quinton Snider MD End stage renal disease; Dependence on renal dialysis 01/13/2025 Treatment [facility] [address] [facility] [address] [place] [phone] Quinton Snider MD End stage renal disease; [...] Name Priority Date/Time Associated Diagnosis Comments LIH (HC) Routine 04/02/2025 3:00 AM EDT POTASSIUM Routine 04/02/2025 3:00 AM EDT LIH (HC) Routine 03/26/2025 3:00 AM EDT POTASSIUM Routine 03/26/2025 3:00 AM EDT HEMOGLOBIN AND HEMATOCRIT, BLOOD Routine 03/26/2025 3:00 AM EDT LIH () Routine 03/19/2025 3:00 AM EDT POTASSIUM Routine 03/19/2025 3:00 AM EDT HEPATITIS B SURFACE ANTIGEN W/REFL CONFIRM Routine 03/12/2025 3:00 AM EDT TRANSFERRIN SATURATION Routine 3:00 AM EDT PROTEIN, TOTAL, SERUM Routine 03/12/2025 3:00 AM EDT ELECTROLYTE PANEL Routine 03/12/2025 3:0 0 AM EDT MAGNESIUM Routine 03/12/2025 3:00 AM EDT LACTATE DEHYDROGENASE Routine 03/12/2025 3:00 AM EDT LIH (HC) Routine 03/12/2025 3:00 AM EDT GLUCOSE, RANDOM [...] URR (HC) Routine 01/15/2025 3:00 AM EDT from Last 3 Months Results * LIH (04/02/2025 3:00 AM EDT) Only the most recent of6 resultswithin the time period is included. Pathologist [facility] Lipemia Normal Normal [facility] Icterus Normal Normal [facility] Hemolysis Normal Normal [facility] 04/02/2025 3:00 AM EDT 04/03/2025 12:36 PM EDT Quinton Snider MD LAB [id number] ICITED RESULTS Final Result APS [facility] [address] [place] [address] * (ABNORMAL) Potassium (04/02/2025 3:00 AM EDT) Only the most recent of3 resultswithin the time period is included. Potassium 5.3(H) 3.4 - 5.0 mEq/L [facility] 04/02/2025 3:00 AM EDT 04/03/2025 12:36 PM EDT us Quinton Snider MD LAB BLOOD ORDERABLES Final Resul t Performing Organization Address [facility] de Phone Number [facility]PS [facility] [address] [place] [address] * (ABNORMAL) Hemoglobin and hematocrit (03/26/2025 3:00 AM EDT) Only the most recent of3 resultswithin the time period is included. Hgb 10.0(L) 13.7 - 17.5 g/dL [facility] Hematocrit 31.8(L) 40.1 - 51.0 % [facility] Hemoglobin x 3 30.0(L) 41.1 - 52.5 g/dL [facility] 03/26/2025 3:00 AM EDT 03/27/2025 1:58 PM EDT us Quinton Snider MD LAB BLOOD ORDERABLES Final Resul t Performing Organization Address [facility] de Phone Number [facility] [address] [place] [address] * (ABNORMAL) Kt/V Natural Log, URR (03/12/2025 [...] PM EDT us Quinton Snider MD LAB [id number] ICITED RESULTS Final Result Performing Organization Address [facility] Co de Phone Number [facility] [address] [place] [address] * (ABNORMAL) Calcium Phosphorus Product, Adjusted (03/12/2025 [...] AM EDT 03/13/2025 12:46 PM EDT us uQinton Snider MD LAB [id number] ICITED RESULTS Final Result Performing Organization Address [facility] de Phone Number [facility] [address] [place] [address] * Hepatitis B Surface Ag w/Reflex Confirmation (03/12/2025 3:00 AM EDT) Only the most recent of3 resultswithin the time period is included. Hep B Surface Antigen Negative Negative [facility] 03/12/2025 3:00 AM EDT 03/13/2025 12:46 PM EDT us Quinton Snider MD LAB BLOOD ORDERABLES Final Resul t Performing Organization Address [facility] Co de Phone Number [facility] [address] [place] [address] * BUN/CREATININE RATIO (03/12/2025 3:00 AM EDT) Only the most recent of3 resultswithin the time period is included. [facility] BUN/Creatinine Ratio 7.3 <=23.0 [facility] 03/12/2025 3:00 AM EDT 03/13/2025 12:46 PM EDT us Quinton Snider MD LAB [id number] ICITED RESULTS Final Result Performing Organization Address [facility] de Phone Number [facility]PS [facility] [address] [place] [address] * (ABNORMAL) TSAT (03/12/2025 3:00 AM EDT) Only the most recent of3 resultswithin the time period is included. [facility] Iron 71 65 - 175 ug/dL [facility] Transferrin 118(L) 215 - 365 mg/dL [facility] TIBC 165(L) 211 - 406 ug/dL [facility] Iron Saturation (TSat) 43 22 - 52 % [facility] 03/12/2025 3:00 AM EDT 03/13/2025 12:46 PM EDT us Quinton Snider MD LAB BLOOD ORDERABLES Final Resul t Performing Organization Address [facility] de Phone Number [facility] [address] [place] [address] * (ABNORMAL) CBC and Differential (03/12/2025 3:00 AM EDT) Only the most recent of3 resultswithin the time period is included. [facility] DIFFERENTIAL MANUAL, 2 Not Indicated [facility] White [...] 3:00 AM EDT 03/13/2025 12:38 PM EDT us Quinton Snider MD LAB BLOOD ORDERABLES Final Resul t Performing Organization Address [facility] Co de Phone Number [facility] [address] [place] [address] * ALT (03/12/2025 3:00 AM EDT) Only the most recent of3 resultswithin the time period is included. ALT (SGPT) 13 10 - 49 U/L [facility] 03/12/2025 3:00 AM EDT 03/13/2025 12:46 PM EDT us Quinton Snider MD LAB BLOOD ORDERABLES Final Resul t Performing Organization Address [facility] Co de Phone Number [facility] [address] [place] [address] * AST (03/12/2025 3:00 AM EDT) Only the most recent of3 resultswithin the time period is included. AST (SGOT) 17 <34 U/L [facility] 03/12/2025 3:00 AM EDT 03/13/2025 12:46 PM EDT us Quinton Snider MD LAB BLOOD ORDERABLES Final Resul t Performing Organization Address [facility] Co de Phone Number [facility] [address] [place] [address] * (ABNORMAL) Protein, total (03/12/2025 3:00 AM EDT) Only the most recent of3 resultswithin the time period is included. Total Protein 5.8(L) 6.4 - 8.9 g/dL [facility] 03/12/2025 3:00 AM EDT 03/13/2025 12:46 PM EDT us Quinton Snider MD LAB BLOOD ORDERABLES Final Resul t Performing Organization Address [facility] de Phone Number [facility] [address] [place] [address] * (ABNORMAL) Alkaline phosphatase (03/12/2025 3:00 AM EDT) Only the most recent of3 resultswithin the time period is included. Alkaline Phosphatase 177(H) 46 - 116 U/L [facility] 03/12/2025 3:00 AM EDT 03/13/2025 12:46 PM EDT us Quinton Snider MD LAB BLOOD ORDERABLES Final Resul t Performing Organization Address [facility] de Phone Number [facility] [address] [place] [address] * (ABNORMAL) Magnesium (03/12/2025 3:00 AM EDT) Only the most recent of3 resultswithin the time period is included. Magnesium 1.6(L) 1.9 - 2.7 mg/dL [facility] 03/12/2025 3:00 AM EDT 03/13/2025 12:46 PM EDT us Quinton Snider MD LAB BLOOD ORDERABLES Final Resul t Performing Organization Address [facility] Co de Phone Number [facility] [address] [place] [address] * Lactate dehydrogenase (03/12/2025 3:00 AM EDT) Only the most recent of3 resultswithin the time period is included. LDH 233 120 - 246 U/L [facility] 03/12/2025 3:00 AM EDT 03/13/2025 12:46 PM EDT us Quinton Snider MD LAB BLOOD ORDERABLES Final Resul t Performing Organization Address [facility] Co de Phone Number [facility] [address] [place] [address] * (ABNORMAL) Glucose, random (03/12/2025 3:00 AM EDT) Only the most recent of3 resultswithin the time period is included. Glucose 174(H) 70 - 99 mg/dL [facility] Comment: ADA guidelines outline the following fasting glucose ranges: Normal: <100 Prediabetes: 100-125 Diabetes: >125 03/12/2025 3:00 AM EDT 03/13/2025 12:46 PM EDT us Quinton Snider MD LAB BLOOD ORDERABLES Final Resul t Performing Organization Address [facility] Co de Phone Number [facility] [address] [place] [address] * (ABNORMAL) Ferritin (03/12/2025 3:00 AM EDT) Only the most recent of3 resultswithin the time period is included. Ferritin 521(H) 22 - 322 ng/mL [facility] 03/12/2025 3:00 AM EDT 03/13/2025 12:46 PM EDT us Quinton Snider MD LAB BLOOD ORDERABLES Final Resul t Performing Organization Address [facility] Co de Phone Number [facility] [address] [place] [address] * (ABNORMAL) Creatinine, serum (03/12/2025 3:00 AM EDT) Only the most recent of3 resultswithin the time period is included. Creatinine 5.22(H) 0.70 - 1.30 mg/dL [facility] 03/12/2025 3:00 AM EDT 03/13/2025 12:46 PM EDT us Quinton Snider MD LAB BLOOD ORDERABLES Final Resul t Performing Organization Address [facility] Co de Phone Number [facility] [address] [place] [address] * Bilirubin, total (03/12/2025 3:00 AM EDT) Only the most recent of3 resultswithin the time period is included. Total Bilirubin 0.3 0.3 - 1.2 mg/dL [facility] 03/12/2025 3:00 AM EDT 03/13/2025 12:46 PM EDT us Quinton Snider MD LAB BLOOD ORDERABLES Final Resul t Performing Organization Address [facility] de Phone Number [facility] [address] [place] [address] * Electrolyte panel (03/12/2025 3:00 AM EDT) [...] Resul t Performing Organization Address [facility] Co de Phone Number [facility] [address] [place] [address] * (ABNORMAL) Hemoglobin (02/19/2025 3:00 AM EDT) Pathologist [facility] Hgb 11.1(L) 13.7 - 17.5 g/dL [facility] Hemoglobin x 3 33.3(L) 41.1 - 52.5 g/dL [facility] 02/19/2025 3:00 AM EDT 02/20/2025 2:33 PM EDT us Quinton Snider MD LAB BLOOD ORDERABLES Final Resul t Performing Organization Address [facility] Co de Phone Number [facility] [address] [place] [address] * PTH, Intact (02/12/2025 3:00 AM EDT) Only the most recent of2 resultswithin the time period is included. Pathologist [facility] PTH, Intact 406 160 - 721 pg/mL [facility] Comment: Suggested (KDIGO) ESRD maintenance range is two to nine times the upper normal limit (80.1 pg/mL) for the laboratory. 02/12/2025 3:00 AM EDT 02/13/2025 12:29 PM EDT us Quinton Snider MD LAB BLOOD ORDERABLES Final Resul t Performing Organization Address [facility] de Phone Number [facility] [address] [place] [address] * Confirmation Test HCV (01/15/2025 3:00 AM EDT) Pathologist [facility] Hep C Ab Confirmation Not needed [facility] 01/15/2025 3:00 AM EDT 01/16/2025 12:12 PM EDT us Quinton Snider MD LAB BLOOD ORDERABLES Final Resul t Performing Organization Address [facility] Co de Phone Number [facility] [address] [place] [address] * HEPATITIS C ABS W/REFLEX RNA DETECTR (01/15/2025 3:00 AM EDT) [facility] Hep C Virus Ab Non-Reacti ve Non-Reacti ve [facility] 01/15/2025 3:00 AM EDT 01/16/2025 12:26 PM EDT us Quinton Snider MD LAB [id number] ICITED RESULTS Final Result Performing Organization Address [facility] de Phone Number [facility] [address] [place] [address] * Reticulocytes (01/15/2025 3:00 AM EDT) Reticulocyte 0.7 0.5 - 1.8 % [facility] Retic Ct Pct 34.4 28.2 - 35.7 pg [facility] 01/15/2025 3:00 AM EDT 01/16/2025 12:12 PM EDT us Quinton Snider MD LAB BLOOD ORDERABLES Final Resul t Performing Organization Address [facility] de Phone Number [facility] [address] [place] [address] * (ABNORMAL) Hemoglobin A1c (01/15/2025 3:00 AM EDT) Hemoglobin A1C 5.7(H) <5.7 % [facility] Comment: Methodology: Enzymatic Normal: <5.7% Prediabetes: 5.7-6.4% Diabetes: >6.4% Diabetic Glucose Control Evaluation: Therapeutic action suggested at >8.0% ADA recommends a glycemic goal of <7.0% 01/15/2025 3:00 AM EDT 01/16/2025 12:12 PM EDT us Quinton Snider MD LAB BLOOD ORDERABLES Final Resul t Performing Organization Address [facility] de Phone Number [facility] [address] [place] [address] * (ABNORMAL) Lipid panel (01/15/2025 3:00 AM [...] Comment: Optimal: <3.3 High Risk: >6.2 01/15/2025 3:0 0 AM EDT 01/16/2025 12:26 PM EDT us Quinton Snider MD LAB BLOOD ORDERABLES Final Resul t [facility] [address] [place] [address] from Last 3 Months Insurance Care Teams Obstetrics Technician Relationship Specialty Start Date End Date Hilton Pepe MD [address] [place] [address] [address] [place] [address] PCP - General Internal Medicine 03/23/22
--- OUTSIDE RECORDS SUMMARY | 2025-04-06 16:59 | XMS_ITS | Clinical Summary ---
Author Organization [facility] Address [address] [place] [address] Phone Care Team Providers Care Supervisor [employer]ges [employer] Buildings Name Role Phone Hilton Pepe MD Primary [...] file Medical Devices Not on file Insurance [address] [address] MEDICARE HMO REPLACEMENT MEDICARE HMO REPLACEMENT MEDICARE HMO REPLACEMENT MEDICARE HMO REPLACEMENT MEDICARE HMO REPLACEMENT [employer] [place] MEDICARE HMO REPLACEMENT Care Teams Supervisor [employer]ges [employer] Buildings Relationship Specialty Start Date End Date Hilton Pepe MD [address] [place] [address] [place] [address] PCP - General Internal Medicine 07/28/22 Additional Source Comments The information contained in this document represents components of the legal health record. It is not the complete legal health record.[facility]
--- OUTSIDE RECORDS SUMMARY | 2025-04-06 16:59 | XMS_ITS | Encounter Summary ---
Author Organization [facility] Address [address] [place] [phone] Phone Care Team Providers Care Strategic Planning Manager Name Role Phone Hilton Pepe MD Primary Care Provider Encounter Details Date Type Department Care Team (Late st Contact Info) Description 02/03/2025 TCM in Dialysis Clinic [facility] [address] [phone] Yossi Beck MD [facility] [address] [phone] Social History Tobacco Use Types [...] 02/03/2025 The patient was seen for a [id number] visit as part of Transitional Care Management services. Attending Level Vial Inspector: YOSSI BECK MD Dialysis Location: [facility] Schedule: Shift: 1 INTERACTIVE CONTACT This veej-ex-jxha visit occurred within 2 business days of [...] Texted dr seth VISIT DIAGNOSES CPT Code 97401 - High complexity, seen within 7 days of discharge. N18.6 End stage renal disease Signed by: YOSSI BECK MD on 02/03/2025 at 09:03:08 AM Transcribed by: YOSSI BECK MD on 02/03/2025 at 09:03:08 AM documented in this encounter Plan of Treatment Not on file documented as of this encounter Visit Diagnoses Not on filedocumented in this encounter Care Teams Strategic Planning Manager Relationship Specialty Start Date End Date Hilton Pepe MD [address] [place] [address] [address] [place] [address] PCP - General Internal Medicine 03/23/22 documented as of this encounter
--- OUTSIDE RECORDS SUMMARY | 2025-04-06 16:59 | XMS_ITS | Encounter Summary ---
Author Organization [facility] Address [address] [facility] [address] [place] [address] Phone Care Team Providers Care Auditing Manager Name Role Phone Hilton Pepe MD Primary Care Provider Encounter Details Date Type Department Care Team (Late st Contact Info) Description 03/28/2022 Office Communication [facility] [address] [facility] [address] [place] [address] Daria Moore Social History Tobacco [...] on filedocumented in this encounter Care Teams Auditing Manager Relationship Specialty Start Date End Date Hilton Pepe MD [address] [place] [address] [address] [place] [address] PCP - General Internal Medicine 03/23/22 documented as of this encounter
--- OUTSIDE RECORDS SUMMARY | 2025-04-06 16:59 | XMS_ITS | Encounter Summary ---
Author Organization [facility] Address [address] [place] [phone] Phone Care Team Providers Care Power Distributor Name Role Phone Hilton Pepe MD Primary Care Provider Encounter Details Date Type Department Care Team (Late st Contact Info) Description 03/31/2025 Treatment [facility] [address] [phone] Yossi Beck MD [facility] [address] End stage renal disease; Dependence [...] Dialysis Note - Yossi Beck MD - 03/31/2025 12:00 AM EDT BASIC NOTE Patient: Woody Tsang : 1955 Note Author: YOSSI BECK MD Service Date: 03/31/2025 This patient was personally seen [id number] for a basic visit as part of routine monthly dialysis care for end stage renal disease. Attending Lab Asst: YOSSI BECK MD Dialysis Location: [facility] Schedule: Shift: 1 HOME MEDICATIONS Current [...] 138 (02/12/25) 137 (01/15/25) ANEMIA ASSESSMENT Hgb 10.0 (03/26/25) 10.3 (03/12/25) 10.0 (02/26/25) Iron Saturation (TSat) 43 (03/12/25) 46 (02/12/25) [...] 3.4 03/12/25 4.1 02/12/25 4.1 01/15/25 Potassium 5.8 03/26/25 4.6 03/19/25 4.0 03/12/25 Hemoglobin A1C 5.7 01/15/25 6.4 10/09/24 5.6 07/17/24 ADDITIONAL LABS White Blood Cells 9.0 (03/12/25) 9.8 (02/12/25) 7.0 (01/15/25) Cholesterol 102 (01/15/25) 67 (10/09/24) 95 (07/17/24) HDL 31 (01/15/25) 28 (10/09/24) 28 (07/17/24) LDL-Calc 54 (01/15/25) 23 (10/09/24) 49 (07/17/24) Triglycerides 86 (01/15/25) 80 (10/09/24) 92 (07/17/24) Hep B Surface Antibody ?4 (07/17/24) Uric Acid 4.7 (07/17/24) Signed by: YOSSI BECK MD on 03/31/2025 at 08:39:48 AM Transcribed by: YOSSI BECK MD on 03/31/2025 at 08:39:48 AM documented in this encounter Plan of Treatment Not on file documented as of this encounter Visit Diagnoses Diagnosis End stage renal disease Dependence on renal dialysis documented in this encounter Care Teams Power Distributor Relationship Specialty Start Date End Date Hilton Pepe MD [address] [place] [address] [address] [place] [address] PCP - General Internal Medicine 03/23/22 documented as of this encounter
[2025-04-27 12:47] VITALS: BMI 28.2
--- NOTE | 2025-04-28 09:06 | HO.ANESPROP2 ---
Documented by User: Subha Mohamud NP 04/28/25 09:16 HPI - Anesthesia Eval Consult details Narrative: 69yo M for Colonoscopy ESRD on HD TuThSat [place] [facility] [place]: ~CAD s/p cardiac catheterization in 2022 for anterior STEMI. At that time, diagnosed to have three-vessel disease. Occluded proximal LAD, thought to be culprit. He also had severe stenosis in the proximal circumflex and presumed occluded RCA with yapl-[id number] collaterals. Underwent PCI to LAD. ~Ischemic CMP with EF 29%. Pt not interested in ICD Case reviewed with LM, Dr Espinoza, and renal. Renal plans partial dialysis on 04/28, EPS colon prep, and full dialysis 04/30. [facility] Active Problems Active Problems: All Active Problems ESRD (end stage renal disease) on dialysis (Acute) Ischemic cardiomyopathy (Acute) Atherosclerotic cardiovascular disease (Acute) Osteomyelitis (Acute) Bacteremia (Acute) Past Medical History Medical History Hemodialysis patient Renal failure Incomplete bladder emptying Non-insulin dependent type 2 diabetes mellitus Heart failure Hyperlipidemia STEMI (ST elevation myocardial infarction) CAD (coronary artery disease) CVA (cerebral vascular accident) Family History Family History Mother No problems noted. Father No problems noted. Surgical History Surgical History H/O colonoscopy History of surgery Social History Social History Household Members: Family Household Members Other:: and daughter Housing: House Do you presently have visiting nurse or other home services: No Patient Tobacco Use Status: Never used Tobacco Second Hand Smoke Exposure: No Use of substances other than those prescribed or required for medical reasons: No Have you been hit, kicked, punched, or otherwise hurt by someone within the past year? If so, by whom?: No Spiritual Healthcare Practices: no Congregational Healthcare Practices: o Cultural Healthcare Practices: no Are you DNR?: No Advance Directives: Yes Advance Directives Information Provided: Yes Advance Directives on File: Yes Advance Directives Date on File: 02/29/24 service: No Meds Allergies Allergy/AdvReac Type Severity Reaction Status Date / Time No Known Allergies Allergy Verified 10/10/24 18:44 Home Medications ?Medication ?Instructions ?Recorded ?Confirmed ?Last Taken ?Type atorvastatin 80 mg tablet 80 mg PO BEDTIME 02/28/24 04/27/25 04/15/24 History tamsulosin 0.4 mg capsule 0.4 mg PO DAILY 02/28/24 04/27/25 04/15/24 History aspirin 81 mg tablet,delayed 81 mg PO DAILY 02/29/24 04/27/25 04/15/24 History release famotidine 20 mg tablet 20 mg PO DAILY 07/16/24 04/27/25 Unknown History sevelamer carbonate 800 mg tablet 800 mg PO DAILY 07/16/24 04/27/25 Unknown History midodrine 5 mg tablet 5 mg PO BID 03/25/25 04/27/25 Unknown History Exam Height,Weight and Vital Signs: Height 6 ft Weight 94.347 kg Pertinent Lab Results Pertinent Lab Results: Laboratory Tests 04/14/25 14:15 WBC 10.4 Hgb 9.4 L Hct 28.0 L Plt Count 190 Narrative Narrative: ECHO 10/2024 Conclusions: - The left ventricular systolic function is severely decreased. The calculated ejection fraction is 29% by biplane method. - Wall motion abnormalities related to underlying coronary disease. - There is moderate mitral annular calcification. - Severe pulmonary hypertension is present. EKG 07/2024 Details: EKG with sinus, 85/min, right axis deviation, can not exclude anterior infarct; downsloping STs in the inferior and anterolateral leads. Assessment and Plan Assessment Anesthesia Assessment: Chart Reviewed Documented by User: Sangeetha Howard MD 04/29/25 12:30 PMFSH Past Medical History Medical History Hemodialysis patient Renal failure Incomplete bladder emptying Non-insulin dependent type 2 diabetes mellitus Heart failure Hyperlipidemia STEMI (ST elevation myocardial infarction) CAD (coronary artery disease) CVA (cerebral vascular accident) Family History Family History Mother No problems noted. Father No problems noted. Family history of problems with anesthesia: No Surgical History Surgical History H/O colonoscopy History of surgery History of Problems with Anesthesia: No Social History Social History Household Members: Family Household Members Other:: and daughter Housing: House Do you presently have visiting nurse or other home services: No Patient Tobacco Use Status: Never used Tobacco Second Hand Smoke Exposure: No Use of substances other than those prescribed or required for medical reasons: No Have you been hit, kicked, punched, or otherwise hurt by someone within the past year? If so, by whom?: No Spiritual Healthcare Practices: no Congregational Healthcare Practices: o Cultural Healthcare Practices: no Are you DNR?: No Advance Directives: Yes Advance Directives Information Provided: Yes Advance Directives on File: Yes Advance Directives Date on File: 02/29/24 service: No Meds Allergies Allergy/AdvReac Type Severity Reaction Status Date / Time No Known Allergies Allergy Verified 10/10/24 18:44 Home Medications ?Medication ?Instructions ?Recorded ?Confirmed ?Last Taken ?Type atorvastatin 80 mg tablet 80 mg PO BEDTIME 02/28/24 04/27/25 04/15/24 History tamsulosin 0.4 mg capsule 0.4 mg PO DAILY 02/28/24 04/27/25 04/15/24 History aspirin 81 mg tablet,delayed 81 mg PO DAILY 02/29/24 04/27/25 04/15/24 History release famotidine 20 mg tablet 20 mg PO DAILY 07/16/24 04/27/25 Unknown History sevelamer carbonate 800 mg tablet 800 mg PO DAILY 07/16/24 04/27/25 Unknown History midodrine 5 mg tablet 5 mg PO BID 03/25/25 04/27/25 Unknown History Exam Airway Mallampati Class: II TM Dist: <=3cm Neck ROM: Limited Heart: rrr Lungs: cta Assessment and Plan Assessment Anesthesia Assessment: Anesthesia Plan Discussed Final Anesthetic Review Family History of Problems with Anesthesia: No History of Problems with Anesthesia: No NPO: Yes ASA Class: IV Final Preanesthetic Review: No Changes in Pt Med Stat, Meds/Allgs Chart Reviewed, Consent Obtained/Reviewed and Anes Risks/Benef Reviewed Patient Risk: Intermediate Procedure Risk: Low Anesthetic Plan Anesthetic Plan: MAC: Disposition: Standard PACU
[2025-04-29 12:52] VITALS: BP 110/53; PULSE 98; RESP 18; TEMP 36.7; O2SAT 100
[2025-04-29 13:12] LABS: Anion Gap 15 (12-20); Carbon Dioxide 27 mmol/L (22-29); Chloride 100 mmol/L (96-108); Potassium 4.1 mmol/L (3.3-5.1); Sodium 138 mmol/L (135-145)
--- NOTE | 2025-04-29 13:36 | MHC.SHP ---
Pre-Procedural Eval Section A - 24 Hr Update-Section A only Date of Service: 04/29/25 Section B - Complete if H&P > 30 days Chief Complaint: screening Details of Present Illness: see H&P no changes Relevant Family History (Specify if Yes): No Relevant Social History: None Present Medications: see Short Stay Collaborative assessment Medical History: No relevant PMH History of Previous Operations: No relevant previous surgery Allergies: Allergies Allergy/AdvReac Type Severity Reaction Status Date / Time No Known Allergies Allergy Verified 10/10/24 18:44 Review of Systems Sugical H&P ROS: Negative: Constitution, Cardiovascular, Respiratory, Neurological, Psychiatric, Hem-Onc, Allergic/Immunologic, Gastrointestinal, Genitourinary, Musculoskeletal, Integumentary, Endocrine and Eyes/Ears/Nose/Throat Exam Surgical H&P Exam: Normal: HEENT, Normal: Heart, Normal: Lungs, Normal: Extremities, Normal: Abdomen, Normal: Skin and Normal: Neurological Plan Diagnosis/Plan: Unchanged I have reviewed the history and physical and performed a pertinent physical examination on my patient. No changes have occurred unless specified. Time Spent With Patient Time: Total time managing care of this patient today ____ minutes.
[2025-04-29 13:45] LABS: Glucose, Whole Blood 78 mg/dL (60-115)
[2025-04-29 14:18] VITALS: BP 104/44; PULSE 91; RESP 15; TEMP 36.1; O2SAT 100
[2025-04-29 14:35] VITALS: BP 118/65; PULSE 91; RESP 16; TEMP 36.6; O2SAT 100
--- NOTE | 2025-04-30 01:18 | OP_ITS ---
DATE OF SERVICE: 04/29/2025 SURGEON: Nico Espinoza MD INDICATIONS: Colon cancer screening and prior history of adenomatous colon polyps. PREOPERATIVE DIAGNOSIS: POSTOPERATIVE DIAGNOSIS: PROCEDURE PERFORMED: Colonoscopy to the terminal ileum with snare polypectomy. ESTIMATED BLOOD LOSS: COMPLICATIONS: ANESTHESIA: Medications; monitored anesthesia care. ASSISTANTS: SPECIMENS: DESCRIPTION OF PROCEDURE: A History and Physical were performed. The risks and benefits of the procedure were explained to the patient and informed consent was obtained. The patient was placed in the left lateral decubitus position. A digital rectal exam was performed and was found to be normal. The Olympus pediatric video colonoscope was introduced into the rectum and advanced to the cecum. The cecum was identified by transillumination, palpation, and identification of ileocecal valve. Examination was performed. The scope was removed. He tolerated the procedure well and was taken to recovery area in stable condition. FINDINGS: The terminal ileum was examined and appeared normal. The visualized colonic mucosa was normal. The quality of the prep was fair with some formed and liquid stool mainly in the descending and sigmoid colon as well as the rectum. This was washed and suctioned as best possible, but did limit the sensitivity examination for detection of small polyps; in the cecum was a flat 9 mm x 11 mm polyp which was removed with a snare and recovered via suction. In the right colon at 80 cm was an 8 mm flat polyp on a fold. This was initially biopsied, then snared and snare tip was used to cauterize the remainder of the polyp. There was moderate sigmoid diverticulosis. Retroflexed examination showed moderate-sized internal hemorrhoids. IMPRESSION: Colon polyps. RECOMMENDATION: Follow up the biopsy results. MD MARIANNE Little/ANDIL / [id number]
== END 2025-04-29 15:08 | disposition home or self-care (01) ==
PROVIDERS: Nurse Practitioner; PCP Internal Medicine; Visit Provider Internal Medicine Gastroenterology
PROC: 0DJD8ZZ Inspection of Lower Intestinal Tract, Via Natural or Artificial Opening Endoscopic (ICD-10-PCS; CPT 45378; principal; 2025-04-29 13:50)
DX: Z12.11 Encounter for screening for malignant neoplasm of colon (principal); Z86.0101 Personal history of adenomatous and serrated colon polyps; E11.9 Type 2 diabetes mellitus without complications; D12.2 Benign neoplasm of ascending colon; D12.0 Benign neoplasm of cecum; K57.30 Diverticulosis of large intestine without perforation or abscess without bleeding; K64.8 Other hemorrhoids
CPT/HCPCS: 45380; 45385; 36415; 80051; 82947; 88305; J2003; J2250; J2371; J2704

== ENCOUNTER 2025-05-12 15:05 | Inpatient (IN) | payer MEDICARE, SELFPAY ==
--- NOTE | ~2025-05-12 | XR_ITS ---
EXAMINATION: XR FOOT, LEFT CLINICAL INFORMATION: osteo of 3rd toe COMPARISON: None available. TECHNIQUE: AP, lateral, and oblique views of the left foot. FINDINGS: There is osteopenia. No fracture or dislocation. There are hammertoe deformities. The second digit distal phalanx is noted to be completely resorbed, and there is partial resorption of the middle phalanx, in keeping with chronic smoldering osteomyelitis. Since the prior study there has been further complete resorption of the third digit middle phalanx, and partial permeative resorption of the proximal phalanx, in keeping with progressing acute osteomyelitis. There is associated soft tissue swelling of the second and third digits. No soft tissue gas is evident. There is a normal plantar arch. There is a moderate-sized plantar calcaneal spur. Soft tissues otherwise normal aside from diffuse vascular calcifications. XR/XR foot LT min 3V IMPRESSION: 1. Since the prior exam, there has been worsening of permeative resorptive changes of the middle and distal phalanges of the second digit, as well as worsening changes involving the middle and distal phalanges of the third digit. Findings are in keeping with osteomyelitis of these digits. 2. Diffuse vascular calcifications. Electronically signed by: Gabriel Noguera MD 05/12/2025 04:47 PM [facility] [place]
[2025-05-12 15:08] VITALS: BP 135/66; PULSE 100; RESP 20; TEMP 36.1; O2SAT 100; BMI 27.2
--- NOTE | 2025-05-12 15:08 | ED.GENADULT ---
HPI - General Adult General Chief complaint: General Medical Stated complaint: foot infection Time Seen by Provider: 05/12/25 19:23 Source: patient and family Mode of arrival: ambulatory Limitations: no limitations History of Present Illness ED Provider: DR. Dobson HPI narrative: A 69-year-old male history of ESRD on HD T/T/S last dialysis was today, CAD s/p PCI, CHF, CVA, eux-nkuvngi-morbkvtec type 2 DM, for a month he has been following with his PCP and wound clinic for left 3rd toe infection patient started on levofloxacin, s/p bone culture which grew Staphylococcus epidermidis and Corynebacterium that post sensitive to only vanco otherwise resistant to most of the antibiotic patient was told to come to the ED for changing the antibiotic to IV form of vancomycin. Patient otherwise declined fever or chills. Related Data Home Medications ?Medication ?Instructions ?Recorded ?Confirmed atorvastatin 80 mg tablet 80 mg PO BEDTIME 02/28/24 04/27/25 tamsulosin 0.4 mg capsule 0.4 mg PO DAILY 02/28/24 04/27/25 aspirin 81 mg tablet,delayed 81 mg PO DAILY 02/29/24 04/27/25 release famotidine 20 mg tablet 20 mg PO DAILY 07/16/24 04/27/25 sevelamer carbonate 800 mg tablet 800 mg PO DAILY 07/16/24 04/27/25 midodrine 5 mg tablet 5 mg PO BID 03/25/25 04/27/25 Allergies Allergy/AdvReac Type Severity Reaction Status Date / Time No Known Allergies Allergy Verified 05/12/25 15:13 Review of Systems Review of Systems: All other systems are reviewed and are negative Constitutional: Reports as per HPI and Reports no additional constitutional complaints Eyes: Reports as per HPI and Reports no additional eye complaints Reports system reviewed and no additional complaints, except as documented Cardiovascular: Reports as per HPI and Reports no additional cardiovascular complaints Respiratory: Reports as per HPI and Reports no additional respiratory complaints Gastrointestinal: Reports as per HPI and Reports no additional gastrointestinal complaints Genitourinary: Reports no additional female genitourinary complaints Musculoskeletal: Reports no additional musculoskeletal complaints Skin/Breast: Reports system reviewed and no additional complaints, except as docu Psychiatric: Reports no additional psychiatric complaints Endocrine: Reports no additional endocrine complaints Hematologic/Lymphatic: Reports no additional hematologic/lymphatic complaints Allergic/Immunologic: Reports no additional allergic/immunologic complaints Reports system reviewed and no additional complaints, except as documented and Reports Abnormal speech present [facility] Past Medical History Medical History Hemodialysis patient Renal failure Incomplete bladder emptying Non-insulin dependent type 2 diabetes mellitus Heart failure Hyperlipidemia STEMI (ST elevation myocardial infarction) CAD (coronary artery disease) CVA (cerebral vascular accident) Surgical History H/O colonoscopy History of surgery Family History Family History Mother No problems noted. Father No problems noted. Social History Social History Household Members: Family Household Members Other:: and daughter Housing: House Do you presently have visiting nurse or other home services: No Comment: occasionally uses walker Patient Tobacco Use Status: Never used Tobacco Second Hand Smoke Exposure: No Advance Directives: Yes Advance Directives on File: Yes Advance Directives Date on File: 02/29/24 Do you have a plan to hurt others: No Plan service: No Physical Exam ED Vital Signs: Vital Signs - 24 hr 05/12/25 15:08 Temperature 96.9 F Pulse Rate 100 Respiratory Rate 20 Blood Pressure 135/66 Pulse Oximetry 100 Oxygen Delivery Method Room Air BMI result Body Mass Index 27.2 Vital signs have been reviewed and appear to be correct. Blood pressure elevated. Heart rate normal. Respiratory rate normal. Temperature normal. Oxygen saturation normal. Appearance: Alert. Oriented X3. No acute distress. Head: Normal external exam. Normocephalic. Atraumatic. No Slater signs noted. No raccoon eyes noted Eyes: PERRLA. EOMI. Conjunctiva and sclera normal. Eyelids normal. ENT: TM's Normal. Pharynx normal. Uvula midline. Moist mucous membranes. No trismus noted. No drooling noted. No muffled voice noted. Neck: Normal inspection. Neck supple. FROM. No adenopathy. Thyroid Normal. No meningeal signs. No neck mass noted. CVS: Normal heart rate and rhythm. Heart sound normal. No murmurs noted. Pulses normal throughout. Respiratory: No respiratory distress. Painless inspiration. Breath sounds normal. No wheezes/rales/rhonchi noted. Chest nontender. No accessory muscle usage noted or decreased air movement noted. Abdomen: Soft and nontender. Bowel sounds normal in all 4 quadrants. No distention noted. No organomegaly noted. No visible injury noted. Back: No CVA tenderness. Full range of motion noted. Skin: Skin warm and dry. Normal skin color. Normal skin turgor. No rashes/lesions/lacerations noted. Extremities: Left foot exam: +2 pitting edema, 2nd and 3rd toe swelling with redness and tenderness to touch, neurovascularly intact. Neuro: Oriented X 3. Cranial nerve exam: II-XII are grossly intact No motor deficit. No sensory deficit. Reflexes normal. Course Course Course Narrative: This is a rapid medical exam performed by Javier Cueto NP: Additional HPI, ROS, PE not included below will be deferred to primary provider. Patient is a 69y/o M with pmhx ESRD on dialysis //Sun, went this am, atherosclerotic cardiovascular disease, T2DM, CVA, CAD, STEMI, HF presenting with complaint of infection to left 3rd toe. Saw PCP who started him on abx, and went to wound clinic, dx with osteo. ID involved. Was told he needed a change in abx but never received a call back. Plan: labs, x-ray Reevaluation(s) Reevaluation #1: Second 3rd toe of left foot osteomyelitis culture is growing corynebacterium species and staff that only sensitive to vancomycin otherwise there is st resistant to most of the antibiotic. Will admit for IV vancomycin and further management of the osteomyelitis. Patient do not meet SIRS criteria, chronic BUN/creatinine elevation due to CKD. Time: 19:48 Medical Decision Making Differential Diagnosis Differential Diagnoses: The differential diagnosis associated with the presentation includes (Sepsis, osteomyelitis, electrolyte derangement, severe anemia.) Admission/Observation Consideration of admission/observation: Escalation of care including admission/observation considered Consult Healthcare Provider Management of the patient was discussed with: Hospitalist (Dr. Cardona) Lab Data [facility] Lab Attestation statement: I reviewed the patient's lab results. 05/12/25 15:38 05/12/25 15:38 Labs: Lab Results 05/12/25 Range/Units 15:38 WBC 6.8 (4.8-10.8) X10*3/uL RBC 3.28 L (4.60-5.80) X10*6/uL Hgb 10.0 L (14.0-18.0) g/dl Hct 30.9 L (42.0-52.0) % MCV 94.2 (80.0-98.0) fL MCH 30.5 (27.0-33.0) pg MCHC 32.4 (31.0-36.0) g/dl RDW 14.5 (11.0-16.0) % Plt Count 136 L D (160-400) X10*3/uL MPV 10.5 (9.4-12.4) fL Immature Gran % (Auto) 0.4 (0.0-0.4) % Neut % (Auto) 68.2 (45-73) % Lymph % (Auto) 22.1 (20-40) % [place] % (Auto) 7.1 (2-11) % Eos % (Auto) 1.9 (0-4) % Baso % (Auto) 0.3 (0-2) % Lymph # (Auto) 1.5 (1.2-4.9) X10*3/uL [place] # (Auto) 0.5 (0.1-1.2) X10*3/uL Eos # (Auto) 0.1 (0.0-0.4) X10*3/uL Baso # (Auto) 0.0 (0.0-0.2) X10*3/uL Abs Immat Gran (auto) 0.03 (0.00-0.03) X10*3/uL Absolute Neuts (auto) 4.6 (2.0-8.3) x10*3/uL Absolute Nucleated RBC 0.000 (0.0-0.012) X10*3/uL Nucleated RBC % (auto) 0.0 (0.0-0.2) /100WBC ESR 55 H (0-15) MM/HR Sodium 141 (135-145) mmol/L Potassium 3.9 (3.3-5.1) mmol/L Chloride 97 (96-108) mmol/L Carbon Dioxide 36 H (22-29) mmol/L Anion Gap 12 (12-20) BUN 24 H (9-16) mg/dL Creatinine 3.64 H (0.5-1.4) mg/dL Estim Creat Clear Calc 20.4 Estimated GFR 17 Random Glucose 158 H (60-115) mg/dL Lactic Acid 1.5 (0.5-2.0) mmol/L Calcium 8.8 (8.4-10.2) mg/dL Total Bilirubin 0.3 (0.0-1.0) mg/dL AST 31 (5-37) U/L ALT 16 (0-40) U/L Alkaline Phosphatase 198 H (39-117) U/L C-Reactive Protein 0.84 H (< or = 0.50) mg/dL Total Protein 7.5 (6.5-8.0) g/dL Albumin 4.1 (3.5-5.0) g/dL Independent Interpretation I performed an independent interpretation of an: Plain X-Ray (Left foot x-ray:1. Since the prior exam, there has been worsening of permeative resorptive changes of the middle and distal phalanges of the second digit, as well as worsening changes involving the middle and distal phalanges of the third digit. Findings are in keeping with osteomyelitis of thes) Radiology Impression Discussion of test interpretation with radiology: I have reviewed the radiologist's reading. Discharge Plan Discharge Clinical Impression: Osteomyelitis Patient Disposition: Admitted As Inpatient Print Language: Puerto [place]ican
[2025-05-12 15:46] LABS: MANUAL DIFF FLAG NO
[2025-05-12 15:58] LABS: Hematocrit 30.9 % (42.0-52.0); Hemoglobin 10.0 g/dl (14.0-18.0); Imm Gran Abs Auto 0.03 X10*3/uL (0.00-0.03); Imm Gran Pct Auto 0.4 % (0.0-0.4); Lymphocytes Absolute Auto 1.5 X10*3/uL (1.2-4.9); Mean Corpuscular HGB Conc 32.4 g/dl (31.0-36.0); Mean Corpuscular Hemoglobin 30.5 pg (27.0-33.0); Mean Corpuscular Volume 94.2 fL (80.0-98.0); NRBC Abs Auto 0.000 X10*3/uL (0.0-0.012); NRBC Pct Auto 0.0 /100WBC (0.0-0.2); Platelet Count 136 X10*3/uL (160-400); Red Blood Count 3.28 X10*6/uL (4.60-5.80); White Blood Count 6.8 X10*3/uL (4.8-10.8)
[2025-05-12 16:02] LABS: Alanine Aminotransferase 16 U/L (0-40); Albumin Level 4.1 g/dL (3.5-5.0); Alkaline Phosphatase 198 U/L (39-117); Anion Gap 12 (12-20); Aspartate Amino Transferase 31 U/L (5-37); Blood Urea Nitrogen 24 mg/dL (9-16); Calcium 8.8 mg/dL (8.4-10.2); Carbon Dioxide 36 mmol/L (22-29); Chloride 97 mmol/L (96-108); Creatinine Clr Calc Pharmacy 20.4; Estimated Glomerular Filt Rate 17; Potassium 3.9 mmol/L (3.3-5.1); Sodium 141 mmol/L (135-145); Total Protein 7.5 g/dL (6.5-8.0)
--- OUTSIDE RECORDS SUMMARY | 2025-05-12 19:37 | XMS_ITS | Encounter Summary ---
Author Organization [facility] Address [address] [place] [id number] Phone Care Team Providers Care Senior Clinical Research Scientist Name Role Phone Hilton Pepe MD Primary Care Provider Encounter Details Date Type Department Care Team (Late st Contact Info) Description 05/12/2025 Treatment [facility] [address] [phone] Yossi Snider MD [facility] [address] End stage renal disease; Dependence [...] Dialysis Note - Yossi Snider MD - 05/12/2025 12:00 AM EST Patient: Woody Alfredo : 1955 Note Type: Dialysis Rounds-Comp Service Date: 05/12/2025 This patient was personally seen [id number] for a complete visit as part of routine monthly dialysis care for end stage renal disease. Attending Splash Line Operator: YOSSI SNIDER MD Dialysis Location: [facility] Schedule: Shift: 1 OVERVIEW Patient is stable. HOME MEDICATIONS Medications reviewed. Current [facility] Medications aspirin EC tablet Take 81 [...] each day Start Date: 01/04/2023 Current endy [facility] Allergies Allergen: No Known Allergies BP AND FLUID ASSESSMENT Acceptable blood pressure. Fluid status acceptable. ADEQUACY ASSESSMENT Kt/V, Natural Log 1.35 (04/09/25) 1.26 (03/12/25) 1.40 (02/12/25) UREA REDUCTION RATIO (%) 69 (04/09/25) 66 (03/12/25) 71 (02/12/25) BUN 52 (04/09/25) 38 (03/12/25) 48 (02/12/25) BUN Post Dialysis 16 (04/09/25) 13 (03/12/25) 14 (02/12/25) Creatinine 6.88 (04/09/25) 5.22 (03/12/25) 6.30 (02/12/25) Bicarbonate (CO2) 26 (04/09/25) 25 (03/12/25) 24 (02/12/25) Sodium 138 (04/09/25) 141 (03/12/25) 138 (02/12/25) Target met. Prescription compliance acceptable. ACCESS ASSESSMENT Vascular access examined. ANEMIA ASSESSMENT Hgb 8.7 (05/07/25) 9.6 (04/23/25) 9.5 (04/09/25) Iron Saturation (TSat) 58 (04/09/25) 43 (03/12/25) 46 (02/12/25) Ferritin 901 (04/09/25) 521 (03/12/25) 772 (02/12/25) Iron 116 (04/09/25) 71 (03/12/25) 90 (02/12/25) TIBC 200 (04/09/25) 165 (03/12/25) 197 (02/12/25) MCV 97.4 (04/09/25) 98.8 (03/12/25) 97.8 (02/12/25) Platelets 167 (04/09/25) 154 (03/12/25) 153 (02/12/25) WHITNEY adjusted per protocol. Iron adjusted per protocol. BMM ASSESSMENT Calcium, Adjusted Total 8.8 04/09/25 7.9 03/12/25 8.6 02/12/25 Calcium 8.8 04/09/25 7.4 03/12/25 8.6 02/12/25 Phosphorus, Serum 4.7 04/09/25 3.5 03/12/25 4.0 02/12/25 Ca*PO4 41.4 04/09/25 25.9 03/12/25 34.4 02/12/25 PTH, Intact 1,068 04/09/25 406 02/12/25 466 01/15/25 Magnesium 2.0 04/09/25 1.6 03/12/25 2.1 02/12/25 Alkaline Phosphatase 184 04/09/25 177 03/12/25 259 02/12/25 Aluminum 4 07/17/24 Bone and mineral metabolism parameters reviewed. NUTRITION ASSESSMENT Albumin 4.1 04/09/25 3.4 03/12/25 4.1 02/12/25 Potassium 4.4 04/09/25 5.3 04/02/25 5.8 03/26/25 Glucose 114 04/09/25 174 03/12/25 174 02/12/25 Hemoglobin A1C 6.0 04/09/25 5.7 01/15/25 6.4 10/09/24 Albumin at goal. PHYSICAL EXAM Exam not performed. ADDITIONAL LABS White Blood Cells 8.6 (04/09/25) 9.0 (03/12/25) 9.8 (02/12/25) Cholesterol 89 (04/09/25) 102 (01/15/25) 67 (10/09/24) HDL 28 (04/09/25) 31 (01/15/25) 28 (10/09/24) LDL-Calc 38 (04/09/25) 54 (01/15/25) 23 (10/09/24) Triglycerides 113 (04/09/25) 86 (01/15/25) 80 (10/09/24) Hep B Surface Antibody ?4 (07/17/24) Uric Acid 4.7 (07/17/24) Chol/HDL Ratio 3.2 (04/09/25) 3.3 (01/15/25) 2.4 (10/09/24) ALT (SGPT) 18 (04/09/25) 13 (03/12/25) 21 (02/12/25) AST (SGOT) 21 (04/09/25) 17 (03/12/25) 25 (02/12/25) Signed by: YOSSI SNIDER MD on 05/12/2025 at 09:26:22 AM Transcribed by: YOSSI SNIDER MD on 05/12/2025 at 09:26:22 AM documented in this encounter Plan of Treatment Not on file documented as of this encounter Visit Diagnoses Diagnosis End stage renal disease Dependence on renal dialysis documented in this encounter Care Teams Senior Clinical Research Scientist Relationship Specialty Start Date End Date Hilton Pepe MD [address] [place] [address] [id number] [place], [place] PCP - General Internal Medicine 03/23/22 documented as of this encounter
--- OUTSIDE RECORDS SUMMARY | 2025-05-12 19:37 | XMS_ITS | Clinical Summary ---
Author Organization [facility] Address [address] [place] [phone] Phone Care Team Providers Care Director Of Conservation Name Role Phone Hilton Pepe MD Primary [...] Encounters Date Type Department Care Team Description 05/12/2025 Treatment [facility] [address] [phone] Quinton Snider MD End stage renal disease; Dependence on renal dialysis 05/05/2025 Treatment [facility] [address] [phone] Quinton Snider MD End stage renal disease; Dependence on renal dialysis 04/28/2025 Treatment [facility] [address] [address] Quinton Snider MD End stage renal disease; Dependence on renal dialysis 04/23/2025 Treatment [facility] [address] [facility] [address] [place] [phone] Quinton Snider MD End stage renal disease; Dependence on renal dialysis 04/21/2025 Treatment [facility] [address] [phone] Quinton Snider MD End stage renal disease; Dependence on renal dialysis 04/14/2025 Treatment [facility] [address] [phone] Quinton Snider MD End stage renal disease; Dependence on renal dialysis 03/31/2025 Treatment [facility] [address] [phone] Quinton Snider MD End stage renal disease; Dependence on renal dialysis 03/24/2025 Treatment [facility] [address] [phone] Quinton Snider MD End stage renal disease; Dependence on renal dialysis 03/17/2025 Treatment [facility] [address] [phone] Quinton Snider MD End stage renal disease; Dependence on renal dialysis 03/10/2025 Treatment [facility] [address] [phone] Quinton Snider MD End stage renal disease; Dependence on renal dialysis 03/05/2025 Treatment [facility] [address] [phone] Quinton Snider MD End stage renal disease; Dependence on renal dialysis 02/26/2025 Orders Only [facility] [address] [phone] Quinton Snider MD 02/26/2025 Treatment [facility] [address] [phone] Quinton Snider MD End stage renal disease; Dependence on renal dialysis 02/24/2025 Treatment [facility] [address] [phone] Quinton Snider MD End stage renal disease; Dependence on renal dialysis 02/17/2025 Treatment [facility] [address] [facility] [address] [place] [address] Quinton Snider MD End stage renal disease; Dependence on renal dialysis 02/10/2025 Treatment [facility] [address] [facility] [address] [place] [address] Quinton Sndier MD End stage renal disease; Dependence on [...] 03/18/2021, Additional history exists Diabetes: Hemoglobin A1C 07/10/2025 025, 01/15/2025, 10/09/2024, Additional history exists Pneumococcal Vaccine: 50+ Years Completed 02/21/2021, 05/28/2017, 12/17/2015, Additional history exists Procedures Procedure Name Priority Date/Time Associated Diagnosis Comments HEMOGLOBIN Routine 05/07/2025 3:00 AM EDT HEMOGLOBIN AND HEMATOCRIT, BLOOD Routine 04/23/2025 3:00 AM EDT HEPATITIS B SURFACE ANTIGEN W/REFL CONFIRM Routine 04/09/2025 3:00 AM EDT TRANSFERRIN SATURATION Routine 3:00 AM EDT LIPID PANEL Routine 04/09/2025 3:00 AM EDT PROTEIN, TOTAL, SERUM Routine 04/09/2025 3:00 AM EDT MAGNESIUM Routine 04/09/2025 3:00 AM EDT ELECTROLYTE PANEL Routine 04/09/2025 3:0 0 AM EDT CREATININE, SERUM Routine 04/09/2025 3:0 0 AM EDT GLUCOSE, RANDOM Routine 04/09/2025 3:00 AM EDT LIH (HC) Routine 04/09/2025 3:00 AM EDT LACTATE DEHYDROGENASE Routine 04/09/2025 3:00 AM EDT BUN/CREATININE RATIO Routine 04/09/2025 3:00 AM EDT BILIRUBIN, TOTAL Routine 04/09/2025 3:00 AM EDT ALT Routine 04/09/2025 3:00 AM EDT ALKALINE PHOSPHATASE Routine 04/09/2025 3:00 AM EDT AST Routine 04/09/2025 3:00 AM EDT CALCIUM PHOSPHORUS PRODUCT, ADJUSTED (HC) Routine 04/09/2025 3:00 AM EDT PTH, INTACT Routine 04/09/2025 3:00 AM EDT FERRITIN Routine 04/09/2025 3:00 AM EDT HEMOGLOBIN A1C Routine 04/09/2025 3:00 AM EDT RETICULOCYTES Routine 04/09/2025 3:00 AM EDT CBC AND DIFFERENTIAL Routine 04/09/2025 3:00 AM EDT KT/V NATURAL LOG, URR (HC) Routine 04/09/2025 3:00 AM EDT LIH (HC) Routine 04/02/2025 3:00 AM EDT POTASSIUM Routine 04/02/2025 3:00 AM EDT LIH (HC) Routine 03/26/2025 3:00 AM EDT POTASSIUM Routine 03/26/2025 3:00 AM EDT HEMOGLOBIN AND HEMATOCRIT, BLOOD Routine 03/26/2025 3:00 AM EDT LIH (HC) Routine 03/19/2025 3:00 AM EDT POTASSIUM Routine [...] URR (HC) Routine 02/12/2025 3:00 AM EDT from Last 3 Months Results * (ABNORMAL) Hemoglobin (05/07/2025 3:00 AM EDT) Only the most recent of2 resultswithin the time period is included. Hgb 8.7(L) 13.7 - 17.5 g/dL [facility] Hemoglobin x 3 26.1(L) 41.1 - 52.5 g/dL [facility] 05/07/2025 3:00 AM EDT 05/08/2025 12:19 PM EDT us Quinton Snider MD LAB BLOOD ORDERABLES Final Resul t [facility] [address] [place] [address] * (ABNORMAL) Hemoglobin and hematocrit (04/23/2025 3:00 AM EDT) Only the most recent of3 resultswithin the time period is included. Pathologist [facility] Hgb 9.6(L) 13.7 - 17.5 g/dL [facility] Hematocrit 30.3(L) 40.1 - 51.0 % [facility] Hemoglobin x 3 28.8(L) 41.1 - 52.5 g/dL [facility] 04/23/2025 3:00 AM EDT 04/24/2025 2:04 PM EDT us Quinton Snider MD LAB BLOOD ORDERABLES Final Resul t Performing Organization Address [facility] Co de Phone Number [facility] [address] [place] [address] * LIH (04/09/2025 3:00 AM EDT) Only the most recent of6 resultswithin the time period is included. [facility] Lipemia Normal Normal [facility] Icterus Normal Normal [facility] Hemolysis Normal Normal [facility] 04/09/2025 3:00 AM EDT 04/10/2025 1:14 PM EDT us Quinton Snider MD LAB [id number] ICITED RESULTS Final Result Performing Organization Address [facility] de Phone Number [facility] [address] [place] [address] * (ABNORMAL) Kt/V Natural Log, URR (04/09/2025 3:00 AM EDT) Only the most recent of3 resultswithin the time period is included. [facility] Treatment Time 214 min [facility] Pre-Weight, lb 94.5 kg [facility] Post-Weight, lb 92.3 kg [facility] BUN 52(H) 7 - 25 mg/dL [facility] Ultrafiltration Rate 7 <=13 mL/kg/hr [facility] Comment: Recommend achieving Ultrafiltration Rate (UFR) <=10 mL/kg/hr References: Precious HERNANDEZ et al. Kidney Int. 2010; 79(2):250-257 BUN Post Dialysis 16 7 - 25 mg/dL [facility] UREA REDUCTION RATIO (%) 69 >=65 % [facility] Kt/V Natural Log 1.35 >=1.2 [facility] 04/09/2025 3:00 AM EDT 04/10/2025 12:13 PM EDT us Quinton Snider MD LAB [id number] ICITED RESULTS Final Result Performing Organization Address [facility] Co de Phone Number [facility] [address] [place] [address] * Calcium Phosphorus Product, Adjusted (04/09/2025 3:00 AM EDT) Only the most recent of3 resultswithin the time period is included. Albumin 4.1 3.6 - 5.4 g/dL [facility] Calcium 8.8 8.6 - 10.3 mg/dL [facility] Phosphorus, Serum 4.7 2.5 - 5.0 mg/dL [facility] Ca*PO4 41.4 <55.0 mg2/dL2 [facility] Calcium, Adjusted Total 8.8 8.6 - 10.3 mg/dL [facility] CA*PO4 CORRCTD 41.4 <55.0 mg2/dL2 [facility] 04/09/2025 3:00 AM EDT 04/10/2025 1:14 PM EDT us Quinton Snider MD LAB [id number] ICITED RESULTS Final Result Performing Organization Address [facility] de Phone Number [facility] [address] [place] [address] * Hepatitis B Surface Ag w/Reflex Confirmation (04/09/2025 3:00 AM EDT) Only the most recent of3 resultswithin the time period is included. Hep B Surface Antigen Negative Negative [facility] 04/09/2025 3:00 AM EDT 04/10/2025 1:14 PM EDT us Quinton Snider MD LAB BLOOD ORDERABLES Final Resul t Performing Organization Address [facility] Co de Phone Number [facility] [address] [place] [address] * BUN/CREATININE RATIO (04/09/2025 3:00 AM EDT) Only the most recent of3 resultswithin the time period is included. BUN/Creatinine Ratio 7.6 <=23.0 [facility] 04/09/2025 3:00 AM EDT 04/10/2025 1:14 PM EDT us Quinton Snider MD LAB [id number] ICITED RESULTS Final Result Performing Organization Address [facility] de Phone Number [facility] [address] [place] [address] * (ABNORMAL) TSAT (04/09/2025 3:00 AM EDT) Only the most recent of3 resultswithin the time period is included. Iron 116 65 - 175 ug/dL [facility] Transferrin 143(L) 215 - 365 mg/dL [facility] TIBC 200(L) 211 - 406 ug/dL [facility] Iron Saturation (TSat) 58(H) 22 - 52 % [facility] 04/09/2025 3:00 AM EDT 04/10/2025 1:14 PM EDT us Quinton Snider MD LAB BLOOD ORDERABLES Final Resul t Performing Organization Address [facility] de Phone Number [facility] [address] [place] [address] * Reticulocytes (04/09/2025 3:00 AM EDT) Reticulocyte 0.8 0.5 - 1.8 % [facility] Retic Ct Pct 34.3 28.2 - 35.7 pg [facility] 04/09/2025 3:00 AM EDT 04/10/2025 12:16 PM EDT us Quinton Snider MD LAB BLOOD ORDERABLES Final Resul t Performing Organization Address [facility] de Phone Number [facility] [address] [place] [address] * (ABNORMAL) CBC and Differential (04/09/2025 3:00 AM EDT) Only the most recent of3 resultswithin the time period is included. Pathologist [facility] DIFFERENTIAL MANUAL, 2 Not Indicated [facility] White Blood Cells 8.6 4.2 - 9.1 K/uL [facility] RBC 3.03(L) 4.63 - 6.08 M/uL [facility] Hgb 9.5(L) 13.7 - 17.5 g/dL [facility] Hemoglobin x 3 28.5(L) 41.1 - 52.5 g/dL [facility] Hematocrit 29.5(L) 40.1 - 51.0 % [facility] MCV 97.4(H) 79.0 - 92.2 fL [facility] MCH 31.4 25.7 - 32.2 pg [facility] MCHC 32.2(L) 32.3 - 36.5 g/dL [facility] RDW 13.8 11.6 - 14.4 % [facility] Platelets 167 163 - 337 K/uL [facility] MPV 12.9 9.1 - 13.0 fL [facility] Neutrophils Relative 63.1 34.0 - 67.9 % [facility] Lymphocytes Relative 26.4 21.8 - 53.1 % [facility] Monocytes 6.9 5.3 - 12.2 % [facility] Eosinophils Relative 2.9 0.8 - 7.0 % [facility] Basophils Relative 0.5 0.2 - 1.2 % [facility] Immature Granulocytes 0.2 0.0 - 1.0 % [facility] 04/09/2025 3:00 AM EDT 04/10/2025 12:16 PM EDT us Quinton Snider MD LAB BLOOD ORDERABLES Final Resul t [facility] [address] [place] [address] * ALT (04/09/2025 3:00 AM EDT) Only the most recent of3 resultswithin the time period is included. Pathologist [facility] ALT (SGPT) 18 10 - 49 U/L [facility] 04/09/2025 3:00 AM EDT 04/10/2025 1:14 PM EDT us Quinton Snider MD LAB BLOOD ORDERABLES Final Resul t Performing Organization Address [facility] Co de Phone Number [facility] [address] [place] [address] * AST (04/09/2025 3:00 AM EDT) Only the most recent of3 resultswithin the time period is included. AST (SGOT) 21 <34 U/L [facility] 04/09/2025 3:00 AM EDT 04/10/2025 1:14 PM EDT us Quinton Snider MD LAB BLOOD ORDERABLES Final Resul t Performing Organization Address [facility] de Phone Number [facility] [address] [place] [address] * Protein, total (04/09/2025 3:00 AM EDT) Only the most recent of3 resultswithin the time period is included. Total Protein 6.8 6.4 - 8.9 g/dL [facility] 04/09/2025 3:00 AM EDT 04/10/2025 1:14 PM EDT us Quinton Snider MD LAB BLOOD ORDERABLES Final Resul t Performing Organization Address [facility] de Phone Number [facility] [address] [place] [address] * (ABNORMAL) Alkaline phosphatase (04/09/2025 3:00 AM EDT) Only the most recent of3 resultswithin the time period is included. Alkaline Phosphatase 184(H) 46 - 116 U/L [facility] 04/09/2025 3:00 AM EDT 04/10/2025 1:14 PM EDT us Quinton Snider MD LAB BLOOD ORDERABLES Final Resul t Performing Organization Address [facility] Co de Phone Number [facility] [address] [place] [address] * (ABNORMAL) PTH, Intact (04/09/2025 3:00 AM EDT) Only the most recent of2 resultswithin the time period is included. PTH, Intact 1,068(H) 160 - 721 pg/mL [facility] Comment: Suggested (KDIGO) ESRD maintenance range is two to nine times the upper normal limit (80.1 pg/mL) for the laboratory. 04/09/2025 3:00 AM EDT 04/10/2025 1:14 PM EDT us Quinton Snider MD LAB BLOOD ORDERABLES Final Resul t Performing Organization Address [facility] Co de Phone Number [facility] [address] [place] [address] * Magnesium (04/09/2025 3:00 AM EDT) Only the most recent of3 resultswithin the time period is included. Magnesium 2.0 1.9 - 2.7 mg/dL [facility] 04/09/2025 3:00 AM EDT 04/10/2025 1:14 PM EDT us Quinton Snider MD LAB BLOOD ORDERABLES Final Resul t Performing Organization Address [facility] de Phone Number [facility] [address] [place] [address] * Lactate dehydrogenase (04/09/2025 3:00 AM EDT) Only the most recent of3 resultswithin the time period is included. LDH 229 120 - 246 U/L [facility] 04/09/2025 3:00 AM EDT 04/10/2025 1:14 PM EDT us Quinton Snider MD LAB BLOOD ORDERABLES Final Resul t Performing Organization Address [facility] Co de Phone Number [facility] [address] [place] [address] * (ABNORMAL) Hemoglobin A1c (04/09/2025 3:00 AM EDT) Hemoglobin A1C 6.0(H) <5.7 % [facility] Comment: Methodology: Enzymatic Normal: <5.7% Prediabetes: 5.7-6.4% Diabetes: >6.4% Diabetic Glucose Control Evaluation: Therapeutic action suggested at >8.0% ADA recommends a glycemic goal of <7.0% 04/09/2025 3:00 AM EDT 04/10/2025 12:16 PM EDT us Quinton Snider MD LAB BLOOD ORDERABLES Final Resul t Performing Organization Address [facility] de Phone Number [facility] [address] [place] [address] * (ABNORMAL) Glucose, random (04/09/2025 3:00 AM EDT) Only the most recent of3 resultswithin the time period is included. Glucose 114(H) 70 - 99 mg/dL [facility] Comment: ADA guidelines outline the following fasting glucose ranges: Normal: <100 Prediabetes: 100-125 Diabetes: >125 04/09/2025 3:00 AM EDT 04/10/2025 1:14 PM EDT us Quinton Snider MD LAB BLOOD ORDERABLES Final Resul t Performing Organization Address [facility] de Phone Number [facility] [address] [place] [address] * (ABNORMAL) Ferritin (04/09/2025 3:00 AM EDT) Only the most recent of3 resultswithin the time period is included. Ferritin 901(H) 22 - 322 ng/mL [facility] 04/09/2025 3:00 AM EDT 04/10/2025 1:14 PM EDT us Quinton Snider MD LAB BLOOD ORDERABLES Final Resul t Performing Organization Address [facility] de Phone Number [facility] [address] [place] [address] * (ABNORMAL) Creatinine, serum (04/09/2025 3:00 AM EDT) Only the most recent of3 resultswithin the time period is included. Creatinine 6.88(H) 0.70 - 1.30 mg/dL [facility] 04/09/2025 3:00 AM EDT 04/10/2025 1:14 PM EDT us Quinton Snider MD LAB BLOOD ORDERABLES Final Resul t Performing Organization Address City/[facility] Co de Phone Number [facility] [address] [place] [address] * Bilirubin, total (04/09/2025 3:00 AM EDT) Only the most recent of3 resultswithin the time period is included. Total Bilirubin 0.3 0.3 - 1.2 mg/dL [facility] 04/09/2025 3:00 AM EDT 04/10/2025 1:14 PM EDT us Quinton Snider MD LAB BLOOD ORDERABLES Final Resul t Performing Organization Address [facility] de Phone Number [facility] [address] [place] [address] * (ABNORMAL) Lipid panel (04/09/2025 3:00 AM EDT) Cholesterol 89 mg/dL [facility] Comment: Optimal: <200 Borderline: 200-239 High Risk: >239 Triglycerides 113 mg/dL [facility] Comment: Optimal: <150 Borderline: 150-200 High Risk: >200 HDL 28(L) mg/dL [facility] Comment: Optimal: >59 Borderline: 40-59 High Risk: <40 LDL-Calc 38 mg/dL [facility] Comment: Optimal: <100 Borderline: 100-159 High Risk: >159 VLDL Cholesterol Cristi 23 mg/dL [facility] Comment: Optimal: <30 Borderline: 30-40 High Risk: >40 Chol/HDL Ratio 3.2 [facility] Comment: Optimal: <3.3 High Risk: >6.2 04/09/2025 3:00 AM EDT 04/10/2025 1:14 PM EDT us Quinton Snider MD LAB BLOOD ORDERABLES Final Resul t Performing Organization Address [facility] de Phone Number [facility] [address] [place] [address] * Electrolyte panel (04/09/2025 3:00 AM EDT) Only the most recent of3 resultswithin the time period is included. Sodium 138 136 - 145 mEq/L [facility] Potassium 4.4 3.4 - 5.0 mEq/L [facility] Chloride 98 98 - 107 mEq/L [facility] Bicarbonate (CO2) 26 21 - 31 mEq/L [facility] Anion Gap 14 3 - 14 mEq/L [facility] 04/09/2025 3:00 AM EDT 04/10/2025 1:14 PM EDT us Quinton Snider MD LAB BLOOD ORDERABLES Final Resul t Performing Organization Address [facility] de Phone Number [facility] [address] [place] [address] * (ABNORMAL) Potassium (04/02/2025 3:00 AM EDT) Only the most recent of3 resultswithin the time period is included. Potassium 5.3(H) 3.4 - 5.0 mEq/L [facility] 04/02/2025 3:00 AM EDT 04/03/2025 12:36 PM EDT us Quinton Snider MD LAB BLOOD ORDERABLES Final Resul t Performing Organization Address [facility] de Phone Number [facility] [address] [place] [address] from Last 3 Months Insurance [facility] Care Teams Director Of Conservation Relationship Specialty Start Date End Date Hilton Pepe MD [address] [place] [address] [address] [place] [address] PCP - General Internal Medicine 03/23/22
--- OUTSIDE RECORDS SUMMARY | 2025-05-12 19:37 | XMS_ITS | Clinical Summary ---
Author Organization [facility] Address [address] [place] [address] Phone Care Team Providers Care Embalmer Assistant Name Role Phone Hilton Pepe MD [...] file Medical Devices Not on file [place] [address] [address] [place] [address] MEDICARE HMO REPLACEMENT MEDICARE HMO REPLACEMENT MEDICARE HMO REPLACEMENT MEDICARE HMO REPLACEMENT MEDICARE HMO REPLACEMENT [facility] [place] MEDICARE HMO REPLACEMENT Care Teams Embalmer Assistant Relationship Specialty Start Date End Date Hilton Pepe MD [address] [place] [address] [place] [address] PCP - General Internal Medicine 07/28/22 Additional Source Comments The information contained in this document represents components of the legal health record. It is not the complete legal health record.[facility]
--- OUTSIDE RECORDS SUMMARY | 2025-05-12 19:37 | XMS_ITS | Encounter Summary ---
Author Organization [facility] Address [address] [place] [phone] Phone Care Team Providers Care Church Supervisor Name Role Phone Hilton Pepe MD Primary Care Provider Encounter Details Date Type Department Care Team (Late st Contact Info) Description 02/03/2025 TCM in Dialysis Clinic [facility] [address] [phone] Yossi Beck MD [facility] [address] [phone] Social History Tobacco Use Types [...] 02/03/2025 The patient was seen for a cqoi-oh-hksi visit as part of Transitional Care Management services. Attending Fry Cook: YOSSI BECK MD Dialysis Location: [facility] Schedule: Shift: 1 INTERACTIVE CONTACT This fmug-cs-vigx visit occurred within 2 business days of [...] Texted dr seth VISIT DIAGNOSES CPT Code 34382 - High complexity, seen within 7 days of discharge. N18.6 End stage renal disease Signed by: YOSSI BECK MD on 02/03/2025 at 09:03:08 AM Transcribed by: YOSSI BECK MD on 02/03/2025 at 09:03:08 AM documented in this encounter Plan of Treatment Not on file documented as of this encounter Visit Diagnoses Not on filedocumented in this encounter Care Teams Church Supervisor Relationship Specialty Start Date End Date Hilton Pepe MD [address] [place] [address] [address] [place] [address] PCP - General Internal Medicine 03/23/22 documented as of this encounter
--- NOTE | 2025-05-12 19:59 | PM.IMHP ---
History of Present Illness Date of Service: 05/12/25 Chief Complaint: sob 69-year-old male with a past medical history of HTN, HLD, dm, CAD, CVA, CHF, ESRD on HD-T/T/S; has been having left foot 3rd toe diabetic foot infection; has been on levofloxacin as outpatient. Bone biopsy at the wound clinic grew Staphylococcus epidermidis and Corynebacterium sensitive to vancomycin. Subsequently asked him go to the ER for further evaluation. Patient denies any discharge. Denies any pain. Denies any fevers. Denies any chest pain or palpitations. Denies any GI or symptoms. Review of all other systems is negative except mentioned above ER course: Per ER team, patient noted to have left 2nd and 3rd toe swelling redness and tenderness; patient was given IV vancomycin. [facility] Medical History Hemodialysis patient Renal failure Incomplete bladder emptying Non-insulin dependent type 2 diabetes mellitus Heart failure Hyperlipidemia STEMI (ST elevation myocardial infarction) CAD (coronary artery disease) CVA (cerebral vascular accident) Family History Mother No problems noted. Father No problems noted. Surgical History H/O colonoscopy History of surgery Social History Household Members: Family Household Members Other:: and daughter Housing: House Do you presently have visiting nurse or other home services: No Comment: occasionally uses walker Patient Tobacco Use Status: Never used Tobacco Second Hand Smoke Exposure: No Advance Directives: Yes Advance Directives on File: Yes Advance Directives Date on File: 02/29/24 Do you have a plan to hurt others: No Plan service: No Meds Allergies Allergy/AdvReac Type Severity Reaction Status Date / Time No Known Allergies Allergy Verified 05/12/25 15:13 Active Medications: Current Medications Vancomycin HCl 1,000 mg/ (Sodium Chloride) 270 mls @ 270 mls/hr IV ONCE ONE Stop: 05/12/25 20:22 Last Admin: 05/12/25 19:49 Dose: 270 mls/hr Pharmacy Consult (Consult Rx Vancomycin Dosing) 1 each MISCELLANE DAILY PRN PRN Reason: Consult order Home Medications ?Medication ?Instructions ?Recorded ?Confirmed ?Last Taken ?Type atorvastatin 80 mg tablet 80 mg PO BEDTIME 02/28/24 04/27/25 04/15/24 History tamsulosin 0.4 mg capsule 0.4 mg PO DAILY 02/28/24 04/27/25 04/15/24 History aspirin 81 mg tablet,delayed 81 mg PO DAILY 02/29/24 04/27/25 04/15/24 History release famotidine 20 mg tablet 20 mg PO DAILY 07/16/24 04/27/25 Unknown History sevelamer carbonate 800 mg tablet 800 mg PO DAILY 07/16/24 04/27/25 Unknown History midodrine 5 mg tablet 5 mg PO BID 03/25/25 04/27/25 Unknown History Physical Exam Vital Signs and Narrative: Vital Signs: Last Vital Signs Temp 96.9 F 05/12/25 15:08 Pulse 100 05/12/25 15:08 Resp 20 05/12/25 15:08 BP 135/66 05/12/25 15:08 Pulse Ox 100 05/12/25 15:08 O2 Del Method Room Air 05/12/25 15:08 BMI result Body Mass Index 27.2 Gen: Appears be in no acute distress HEENT: NCAT, Moist mucosa. Pulmonary: Vesicular breath sounds, fair air entry CVS: Normal S1-S2 Abdomen: BS+, Soft, Nontender Extremities: Warm well perfused; left 2nd and 3rd toe noted to have erythema and tenderness; Neuro: Alert and awake. Results Labs 05/12/25 15:38 05/12/25 15:38 Labs: Laboratory Results - last 24 hr 05/12/25 15:38 MCV 94.2 MCH 30.5 MCHC 32.4 RDW 14.5 Plt Count 136 L D MPV 10.5 Immature Gran % (Auto) 0.4 Neut % (Auto) 68.2 Lymph % (Auto) 22.1 [place] % (Auto) 7.1 Eos % (Auto) 1.9 Baso % (Auto) 0.3 Lymph # (Auto) 1.5 [place] # (Auto) 0.5 Eos # (Auto) 0.1 Baso # (Auto) 0.0 Abs Immat Gran (auto) 0.03 Absolute Neuts (auto) 4.6 Absolute Nucleated RBC 0.000 Nucleated RBC % (auto) 0.0 ESR 55 H Anion Gap 12 Estim Creat Clear Calc 20.4 Estimated GFR 17 Random Glucose 158 H Lactic Acid 1.5 Calcium 8.8 Total Bilirubin 0.3 AST 31 ALT 16 Alkaline Phosphatase 198 H C-Reactive Protein 0.84 H Total Protein 7.5 Albumin 4.1 Imaging Radiologist's Impressions: Impressions Foot X-Ray 05/12/25 16:07 IMPRESSION: 1. Since the prior exam, there has been worsening of permeative resorptive changes of the middle and distal phalanges of the second digit, as well as worsening changes involving the middle and distal phalanges of the third digit. Findings are in keeping with osteomyelitis of these digits. 2. Diffuse vascular calcifications. Electronically signed by: Gabriel Noguera MD 05/12/2025 04:47 PM [facility] Assessment and Plan (1) Osteomyelitis: Qualifiers: Osteomyelitis type: unspecified type Osteomyelitis location: unspecified site Qualified Code(s): M86.9 - Osteomyelitis, unspecified Status: Acute Plan 69-year-old male with a past medical history of HTN, HLD, dm, CAD, CVA, CHF, ESRD on HD-T/T/S; has been having left foot 3rd toe diabetic foot infection. Noted to have left 2nd and 3rd toe osteomyelitis. Left 2nd and 3rd toe osteomyelitis: Outpatient bone biopsy cultures grew Staphylococcus epidermidis and Corynebacterium sensitive to vancomycin-ordered Case management consult in a.m. for discharge planning Infectious disease consult Physical therapy as needed ESRD: Patient on hemodialysis. Nephrology consult Diabetes: Insulin sliding scale DVT prophylaxis: Lovenox Code status: Full code Quality Stroke Does the patient have a stroke diagnosis?: No VTE Prior VTE?: No VTE Risk Level:: Medical - moderate - high VTE Device Contraindication: Treatment Not Indicated VTE Drug Contraindication: N/A - Med Ordered
--- NOTE | 2025-05-12 20:28 | PHA.MEDREC ---
Addendum entered by Jaret Nascimento, PharmEliezer 05/12/25 21:04: med rec checked by [facility] Original Note: Pharmacy Consult ? Medication Reconciliation Pharmacy has completed the medication reconciliation. Spoke to patient to confirm med list. Patient had a list of medications with him. Patient states he is no longer taking Clopidogrel 75 mg, Famotidine 20 mg, Sevelamer carb 800 mg. Patient confirmed he is taking Levofloxacin 750 mg, last dose was today.
[2025-05-12 20:58] VITALS: BP 147/83; PULSE 89; RESP 20; TEMP 36.7; O2SAT 97
[2025-05-12 21:23] LABS: Glucose, Whole Blood 104 mg/dL (60-115)
[2025-05-12 23:00] VITALS: BP 125/77; PULSE 80; RESP 16; TEMP 36.8; O2SAT 98
[2025-05-13 01:54] VITALS: BP 123/74; PULSE 82; RESP 16; TEMP 36.8; O2SAT 98
[2025-05-13 04:30] LABS: MANUAL DIFF FLAG NO
[2025-05-13 04:42] LABS: Hematocrit 27.2 % (42.0-52.0); Hemoglobin 8.8 g/dl (14.0-18.0); Imm Gran Abs Auto 0.02 X10*3/uL (0.00-0.03); Imm Gran Pct Auto 0.3 % (0.0-0.4); Lymphocytes Absolute Auto 1.8 X10*3/uL (1.2-4.9); Mean Corpuscular HGB Conc 32.4 g/dl (31.0-36.0); Mean Corpuscular Hemoglobin 30.1 pg (27.0-33.0); Mean Corpuscular Volume 93.2 fL (80.0-98.0); NRBC Abs Auto 0.000 X10*3/uL (0.0-0.012); NRBC Pct Auto 0.0 /100WBC (0.0-0.2); Platelet Count 114 X10*3/uL (160-400); Red Blood Count 2.92 X10*6/uL (4.60-5.80); White Blood Count 5.8 X10*3/uL (4.8-10.8)
[2025-05-13 04:56] LABS: Anion Gap 14 (12-20); Blood Urea Nitrogen 28 mg/dL (9-16); Calcium 8.4 mg/dL (8.4-10.2); Carbon Dioxide 30 mmol/L (22-29); Chloride 101 mmol/L (96-108); Creatinine Clr Calc Pharmacy 17.1; Estimated Glomerular Filt Rate 14; Potassium 3.8 mmol/L (3.3-5.1); Sodium 141 mmol/L (135-145)
--- NOTE | 2025-05-13 05:54 | HO.NURTONUR ---
Pt from home with complaint of infection in his 3rd toe on his left foot being followed by wound clinic. Pt had a recent bone biopsy done at the wound clinic grew staphylococcus epidermidis and corynebacterium and was referred to to come to the ER for further evaluation. Pt denies any pain, fevers/chills, n/v/d, sob, cp or any other symptoms of concern. Pt ca&o x3 able to make his needs known, has 20G Iv in Right hand and has received IV 1G vancomycin. Pt follow up with PT/CM and infectious disease consult in the [facility]. Pt goes to dialysis T, TH, S, left limb not to be used for puncture or bp. Labs: RBC- 3.28--> 2.92 HGb- 10.0--> 8.8 HCT- 30.9 --> 27.2 PLT- 135--> 114 ESR- 55 BUN- 24 creatinine- 3.64 --> 4.34 Foot Xray- IMPRESSION: 1. Since the prior exam, there has been worsening of permeative resorptive changes of the middle and distal phalanges of the second digit, as well as worsening changes involving the middle and distal phalanges of the third digit. Findings are in keeping with osteomyelitis of these digits. 2. Diffuse vascular calcifications.
[2025-05-13 06:00] VITALS: BP 126/68; PULSE 86; RESP 17; TEMP 36.6; O2SAT 98
[2025-05-13 07:36] LABS: Glucose, Whole Blood 123 mg/dL (60-115)
[2025-05-13] MEDS: 0.9 % Sodium Chloride Flush 3 ML SYRINGE IVFLUSH (08:12)
--- NOTE | 2025-05-13 08:19 | PC.NURSE ---
report taken from previous rn pt is caox4 and offers no complaint. fall precautions are in place, he has his call arboleda within reach. awaiitng bed assignment, pt is aware of hisplan of care.
[2025-05-13 08:38] VITALS: BP 124/76; PULSE 80; RESP 16; TEMP 36.7; O2SAT 97
[2025-05-13] MEDS: Aspirin Enteric Coated 81 MG TABLET.DR PO (10:25)
[2025-05-13 10:43] VITALS: BP 150/84; PULSE 80; RESP 18; O2SAT 100
[2025-05-13 11:24] LABS: Glucose, Whole Blood 94 mg/dL (60-115)
[2025-05-13 11:34] VITALS: BMI 26.8
--- NOTE | 2025-05-13 11:42 | HO.PM.IMPN ---
Subjective Subjective Date of Service: 05/13/25 Interval History: no complaints Physical Exam Exam: Exam: General: AO X 3, no acute distress Resp: CTA bilateral, no accessory muscles used CVS: S1,S2,RRR GI: soft, non tender, non distended Neuro: motor grossly intact, alert Psych: appropriate affect, appropriate insight left 2nd and 3rd toes erythema left hand fingers with areas of chronic necrosis Vital Signs: Vital Signs: Last Vital Signs Temp 98.0 F 05/13/25 08:38 Pulse 80 05/13/25 10:43 Resp 18 05/13/25 10:43 BP 150/84 H 05/13/25 10:43 Pulse Ox 100 05/13/25 10:43 O2 Del Method Room Air 05/13/25 10:43 BMI result Body Mass Index 27.2 Objective Data Active Medications Acetaminophen (Acetaminophen 325 Mg Tablet) 650 mg PO Q6H PRN PRN Reason: Pain, Mild 1-3,fever,headache Aspirin (Aspirin Enteric Coated 81 Mg Tablet.Dr) 81 mg PO DAILY COUNTS INCLUDE 234 BEDS AT THE [facility] Last Admin: 05/13/25 10:25 Dose: 81 mg Documented By: RONNIE Atorvastatin Calcium (Atorvastatin Calcium 80 Mg Tablet) 80 mg PO BEDTIME KALA Calcium Carbonate (Calcium Carbonate 750 Mg Tab.Chew) 750 mg PO Q4H PRN PRN Reason: Heartburn Dextrose (Dextrose 50 % 25 Gm/50 Ml Syringe) 25 gm IVPUSH Q15M PRN; Protocol PRN Reason: per Hypoglycemia Standing Ord. Enoxaparin Sodium (Enoxaparin Sodium 30 Mg/0.3 Ml Syringe) 30 mg SUBCUT Q24H COUNTS INCLUDE 234 BEDS AT THE [facility] Last Admin: 05/12/25 21:36 Dose: 30 mg Documented By: ALANA Finasteride (Finasteride 5 Mg Tablet) 5 mg PO DAILY COUNTS INCLUDE 234 BEDS AT THE [facility] Glucose (Glucose Gel 15 Gm Gel..Gram.) 15 gm PO Q15M PRN; Protocol PRN Reason: per Hypoglycemia Standing Ord. Vancomycin HCl 500 mg/ Sodium (Chloride) 110 mls @ 110 mls/hr IV Q24H COUNTS INCLUDE 234 BEDS AT THE [facility] Insulin Human Lispro (Insulin Lispro 100 Unit/Ml 3 Ml Vial) 0 unit SUBCUT QIDACHS COUNTS INCLUDE 234 BEDS AT THE [facility]; Protocol Last Admin: 05/13/25 08:11 Dose: Not Given Documented By: RONNIE Non-Admin Reason: No Insulin Coverage Magnesium Hydroxide (Milk Of Magnesia 30 Ml Oral.Susp) 30 ml PO DAILY PRN PRN Reason: Constipation Melatonin (Melatonin 3 Mg Tablet) 6 mg PO BEDTIME PRN PRN Reason: Insomnia Midodrine (Midodrine Hcl 5 Mg Tablet) 5 mg PO BID COUNTS INCLUDE 234 BEDS AT THE [facility] Pharmacy Consult (Consult Rx Vancomycin Dosing) 1 each MISCELLANE DAILY PRN PRN Reason: Consult order Sodium Chloride (0.9 % Sodium Chloride Flush 3 Ml Syringe) 3 ml IVFLUSH QSHIFT COUNTS INCLUDE 234 BEDS AT THE [facility] Last Admin: 05/13/25 08:12 Dose: 3 ml Documented By: RONNIE Tamsulosin HCl (Tamsulosin Hcl 0.4 Mg Capsule) 0.4 mg PO DAILY COUNTS INCLUDE 234 BEDS AT THE [facility] Labs 05/13/25 04:11 05/13/25 04:11 Labs: Laboratory Results - last 24 hr 05/12/25 05/12/25 05/12/25 15:38 19:48 21:18 MCV 94.2 MCH 30.5 MCHC 32.4 RDW 14.5 Plt Count 136 L D MPV 10.5 Immature Gran % (Auto) 0.4 Neut % (Auto) 68.2 Lymph % (Auto) 22.1 [place] % (Auto) 7.1 Eos % (Auto) 1.9 Baso % (Auto) 0.3 Lymph # (Auto) 1.5 [place] # (Auto) 0.5 Eos # (Auto) 0.1 Baso # (Auto) 0.0 Abs Immat Gran (auto) 0.03 Absolute Neuts (auto) 4.6 Absolute Nucleated RBC 0.000 Nucleated RBC % (auto) 0.0 ESR 55 H Anion Gap 12 Estim Creat Clear Calc 20.4 Estimated GFR 17 POC Glucose 104 Random Glucose 158 H Lactic Acid 1.5 1.4 Calcium 8.8 Total Bilirubin 0.3 AST 31 ALT 16 Alkaline Phosphatase 198 H C-Reactive Protein 0.84 H Total Protein 7.5 Albumin 4.1 05/13/25 05/13/25 05/13/25 04:11 07:32 11:17 MCV 93.2 MCH 30.1 MCHC 32.4 RDW 14.6 Plt Count 114 L MPV 10.6 Immature Gran % (Auto) 0.3 Neut % (Auto) 55.5 Lymph % (Auto) 30.6 [place] % (Auto) 10.5 Eos % (Auto) 2.9 Baso % (Auto) 0.2 Lymph # (Auto) 1.8 [place] # (Auto) 0.6 Eos # (Auto) 0.2 Baso # (Auto) 0.0 Abs Immat Gran (auto) 0.02 Absolute Neuts (auto) 3.2 Absolute Nucleated RBC 0.000 Nucleated RBC % (auto) 0.0 ESR Anion Gap 14 Estim Creat Clear Calc 17.1 Estimated GFR 14 POC Glucose 123 H 94 Random Glucose 94 Lactic Acid Calcium 8.4 Total Bilirubin AST ALT Alkaline Phosphatase C-Reactive Protein Total Protein Albumin Assessment and Plan (1) Osteomyelitis: Status: Acute Plan 69M PMH ESRD (RTANE), HTN, DM, CAD, CVA, PVD, HFref, sent in for bone biposy with positive acute OM and MDR organisms Left lower extremity secondary and 3rd toe osteomyelitis due to diabetes and peripheral vascular disease continue iv vanc follow up ID asa, statin ESRD hd, rtane bph flomax, proscar hfref stable dm insulin dvt prophylaxis - lovenox full code reason for continued hospitalization:id eval Quality Stroke Does the patient have a stroke diagnosis?: No VTE Prior VTE?: No VTE Risk Level:: Medical - moderate - high VTE Device Contraindication: Treatment Not Indicated VTE Drug Contraindication: N/A - Med Ordered
[2025-05-13 11:58] VITALS: BP 156/82; PULSE 82; RESP 18; TEMP 36.2; O2SAT 97
--- NOTE | 2025-05-13 13:47 | P.DS_ITS ---
DS: Providers Provider Date of Service: 05/13/25 Date of admission: 05/12/25 19:57 Date of discharge: 05/13/25 Primary care physician: Hilton Pepe MD Consults: 05/12/25 19:56 Consult to Infectious Diseases Routine Consulting Provider: [facility] Infectious Disease Center Reason for consultation: osteomyelitis 05/13/25 09:05 Consult to Nephrology Routine Consulting Provider: [facility] Reason for consultation: esrd 05/13/25 12:56 Consult to Wound Care Routine Consulting Provider: [facility] Wound Care Management Reason for consultation: right 3rd toe osteo open wound Has provider been notified: No DS: Diagnosis Discharge Diagnosis (1) Osteomyelitis: Status: Acute DS: Summary Hospital Course Hospital Course: from initial hpi: 69-year-old male with a past medical history of HTN, HLD, dm, CAD, CVA, CHF, ESRD on HD-T/T/S; has been having left foot 3rd toe diabetic foot infection; has been on levofloxacin as outpatient. Bone biopsy at the wound clinic grew Staphylococcus epidermidis and Corynebacterium sensitive to vancomycin. Subsequently asked him go to the ER for further evaluation. Patient denies any discharge. Denies any pain. Denies any fevers. Denies any chest pain or palpitations. Denies any GI or symptoms. Review of all other systems is negative except mentioned above ER course: Per ER team, patient noted to have left 2nd and 3rd toe swelling redness and tenderness; patient was given IV vancomycin. hospital course: Patient was admitted for left foot osteomyelitis due to peripheral vascular disease complicated by positive culture for multidrug resistant organisms of staph epi and coronary bacteriuria. Case was discussed with Infectious Disease recommended 6 weeks of IV Vancomycin to be completed 06/22/2025 and can be done with hemodialysis. Patient medically stable and will be discharged home. For BPH continued on Flomax and Proscar. For HFrEF remained stable. Time Attestation Discharge Coordination Time (in mins): 33 Quality: Safe Use of Opioids Does Pt have an Active Cancer Diagnosis on the Problem List?: No Quality: Stroke Does the patient have a stroke diagnosis?: No Physical Exam Exam: Exam: General: AO X 3, no acute distress Resp: CTA bilateral, no accessory muscles used CVS: S1,S2,RRR GI: soft, non tender, non distended Neuro: motor grossly intact, alert Psych: appropriate affect, appropriate insight left 2nd and 3rd toes erythema left hand fingers with areas of chronic necrosis Vital Signs: Vital Signs: Last Vital Signs Temp 97.2 F 05/13/25 11:58 Pulse 82 05/13/25 11:58 Resp 18 05/13/25 11:58 BP 156/82 H 05/13/25 11:58 Pulse Ox 97 05/13/25 11:58 O2 Del Method Room Air 05/13/25 11:58 BMI result Body Mass Index 26.8 DS: Data Data Completed and Pending Completed studies during hospitalization [Text1]: Procedures Insertion of Infusion Device into Inferior Vena Cava, Percutaneous Approach (04/17/24) Insertion of Infusion Device into Right Atrium, Percutaneous Approach (02/28/24) Insertion of Tunneled Vascular Access Device into Chest Subcutaneous Tissue and Fascia, Percutaneous Approach (04/17/24) Introduction of Vasopressor into Peripheral Vein, Percutaneous Approach (04/17/24) Performance of Urinary Filtration, Intermittent, Less than 6 Hours Per Day (04/17/24) Transfusion of Nonautologous Red Blood Cells into Peripheral Vein, Percutaneous Approach (02/28/24) Ultrasonography of Superior Vena Cava, Guidance (02/28/24) Labs on day of discharge: Laboratory Results - last 24 hr 05/12/25 05/12/25 05/12/25 15:38 19:48 21:18 WBC 6.8 RBC 3.28 L Hgb 10.0 L Hct 30.9 L MCV 94.2 MCH 30.5 MCHC 32.4 RDW 14.5 Plt Count 136 L D MPV 10.5 Immature Gran % (Auto) 0.4 Neut % (Auto) 68.2 Lymph % (Auto) 22.1 [place] % (Auto) 7.1 Eos % (Auto) 1.9 Baso % (Auto) 0.3 Lymph # (Auto) 1.5 [place] # (Auto) 0.5 Eos # (Auto) 0.1 Baso # (Auto) 0.0 Abs Immat Gran (auto) 0.03 Absolute Neuts (auto) 4.6 Absolute Nucleated RBC 0.000 Nucleated RBC % (auto) 0.0 ESR 55 H Sodium 141 Potassium 3.9 Chloride 97 Carbon Dioxide 36 H Anion Gap 12 BUN 24 H Creatinine 3.64 H Estim Creat Clear Calc 20.4 Estimated GFR 17 POC Glucose 104 Random Glucose 158 H Lactic Acid 1.5 1.4 Calcium 8.8 Total Bilirubin 0.3 AST 31 ALT 16 Alkaline Phosphatase 198 H C-Reactive Protein 0.84 H Total Protein 7.5 Albumin 4.1 05/13/25 05/13/25 05/13/25 04:11 07:32 11:17 WBC 5.8 RBC 2.92 L Hgb 8.8 L Hct 27.2 L MCV 93.2 MCH 30.1 MCHC 32.4 RDW 14.6 Plt Count 114 L MPV 10.6 Immature Gran % (Auto) 0.3 Neut % (Auto) 55.5 Lymph % (Auto) 30.6 [place] % (Auto) 10.5 Eos % (Auto) 2.9 Baso % (Auto) 0.2 Lymph # (Auto) 1.8 [place] # (Auto) 0.6 Eos # (Auto) 0.2 Baso # (Auto) 0.0 Abs Immat Gran (auto) 0.02 Absolute Neuts (auto) 3.2 Absolute Nucleated RBC 0.000 Nucleated RBC % (auto) 0.0 ESR Sodium 141 Potassium 3.8 Chloride 101 Carbon Dioxide 30 H Anion Gap 14 BUN 28 H Creatinine 4.34 H* Estim Creat Clear Calc 17.1 Estimated GFR 14 POC Glucose 123 H 94 Random Glucose 94 Lactic Acid Calcium 8.4 Total Bilirubin AST ALT Alkaline Phosphatase C-Reactive Protein Total Protein Albumin Discharge Plan Discharge Anticipated Discharge Date/Time: 05/13/25 13:42 Patient Disposition: Home, Self-Care Discharge Diagnosis: OM Referrals: Hilton Pepe MD [Primary Care Provider, Medical] - 1 Week Discharge Medications: Continued finasteride 5 mg tablet 5 mg PO DAILY atorvastatin 80 mg tablet 80 mg PO BEDTIME tamsulosin 0.4 mg capsule 0.4 mg PO DAILY aspirin 81 mg Tablet,Delayed Release (Dr/Ec) 81 mg PO DAILY midodrine 5 mg tablet 5 mg PO BID Rx Instructions: do not give last dose of day after 6PM or within 4 hrs of bedtime Discontinued levofloxacin 750 mg tablet 750 mg PO DAILY Discharge Orders: Discharge Order (Routine); Ordered 05/13/25 Ordered By: Daniel Tolliver Diet: Advance to usual diet Activity on Discharge: As tolerated Stand Alone Forms: Patient Portal Discharge page Print Language: Macedonian Care Plan Goals: recovery Health Concerns: OM Plan of Treatment: vancomycin with hemodialysis, complete 6 weeks, end 12/15/25 Assessment: see above
--- NOTE | 2025-05-13 14:13 | MHC.CM.PN ---
IMM DELIVERED PT LIVES WITH SPOUSE AND IS FUNCTIONALLY INDEPENDENT. PT ATTENDS HD T-TH-SAT AT [facility] ON [address] PT DRIVES SELF TO HD. THIS CM CALLED [facility] TO CONFIRM RESUMPTION AND NOTIFY OF ABT RX WITH HD. 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 + HCP ON FILE AND VERIFIED. PCP DR. RICH DP: PT HAS BEEN MEDICALLY CLEARED FOR DC HOME, NO SERVICES. PT DECLINES ANY HOME SERVICES, STATES HE DOES HIS OWN DRESSING TO FOOT. PT ALSO ATTENDS WOUND CLINIC. PT'S SPOUSE WILL TRANSPORT HOME.
--- NOTE | 2025-05-14 12:57 | PM.CNNEP ---
History of Present Illness Reason for Consult Consult date: 05/13/25 Reason for consult: ESRD and HD Chief Complaint Chief complaint: Osteomyelitis History of Present Illness Narrative: [facility] consulted for HD [place] 69M PMH ESRD ([facility]), HTN, DM, CAD, CVA, PVD, HFref, sent in for bone biposy with positive acute OM and MDR organisms Left lower extremity secondary and 3rd toe osteomyelitis due to diabetes and peripheral vascular disease Unclear why he needed to be adm vs given ABx at outpt HDU Review of Systems Review of Systems All other systems are reviewed and are negative Constitutional: Reports as per HPI and Reports no additional constitutional complaints Eyes: Reports as per HPI and Reports no additional eye complaints Reports system reviewed and no additional complaints, except as documented Cardiovascular: Reports as per HPI and Reports no additional cardiovascular complaints Respiratory: Reports as per HPI and Reports no additional respiratory complaints Gastrointestinal: Reports as per HPI and Reports no additional gastrointestinal complaints Genitourinary: Reports no additional female genitourinary complaints Musculoskeletal: Reports no additional musculoskeletal complaints Skin/Breast: Reports system reviewed and no additional complaints, except as docu Psychiatric: Reports no additional psychiatric complaints Endocrine: Reports no additional endocrine complaints Hematologic/Lymphatic: Reports no additional hematologic/lymphatic complaints Allergic/Immunologic: Reports no additional allergic/immunologic complaints Reports system reviewed and no additional complaints, except as documented and Reports Abnormal speech present PMFSH Past Medical History Medical History Hemodialysis patient Renal failure Incomplete bladder emptying Non-insulin dependent type 2 diabetes mellitus Heart failure Hyperlipidemia STEMI (ST elevation myocardial infarction) CAD (coronary artery disease) CVA (cerebral vascular accident) Family History Family History Mother No problems noted. Father No problems noted. Surgical History Surgical History H/O colonoscopy History of surgery Social History Social History Household Members: Family Household Members Other:: and daughter Housing: House Do you presently have visiting nurse or other home services: No Comment: occasionally uses walker Patient Tobacco Use Status: Never used Tobacco Second Hand Smoke Exposure: No Advance Directives Date on File: 02/29/24 service: No Meds Allergies Allergy/AdvReac Type Severity Reaction Status Date / Time No Known Allergies Allergy Verified 05/12/25 15:13 Home Medications ?Medication ?Instructions ?Recorded ?Confirmed ?Last Taken ?Type atorvastatin 80 mg tablet 80 mg PO BEDTIME 02/28/24 05/12/25 05/11/25 History tamsulosin 0.4 mg capsule 0.4 mg PO DAILY 02/28/24 05/12/25 05/11/25 History aspirin 81 mg tablet,delayed 81 mg PO DAILY 02/29/24 05/12/25 04/15/24 History release midodrine 5 mg tablet 5 mg PO BID 03/25/25 05/12/25 05/12/25 History finasteride 5 mg tablet 5 mg PO DAILY 05/12/25 05/12/25 05/11/25 History Physical Exam Vital Signs: Last Vital Signs Temp 97.2 F 05/13/25 11:58 Pulse 82 05/13/25 11:58 Resp 18 05/13/25 11:58 BP 156/82 H 05/13/25 11:58 Pulse Ox 97 05/13/25 11:58 O2 Del Method Room Air 05/13/25 11:58 BMI result Body Mass Index 26.8 Results Lab Results 05/13/25 04:11 05/13/25 04:11 Lab results: Chemistry 05/12/25 05/13/25 15:38 04:11 Sodium 141 141 Potassium 3.9 3.8 Carbon Dioxide 36 H 30 H BUN 24 H 28 H Creatinine 3.64 H 4.34 H* Calcium 8.8 8.4 Hematology 05/12/25 05/13/25 15:38 04:11 WBC 6.8 5.8 Hgb 10.0 L 8.8 L Plt Count 136 L D 114 L Assessment and Plan (1) Osteomyelitis: Qualifiers: Osteomyelitis location: unspecified site Osteomyelitis type: unspecified type Qualified Code(s): M86.9 - Osteomyelitis, unspecified Status: Acute Plan 69M PMH ESRD ([facility]), HTN, DM, CAD, CVA, PVD, HFref, sent in for bone biposy with positive acute OM and MDR organisms ESRD mw [facility] unit ( [phone]) Left lower extremity secondary and 3rd toe osteomyelitis due to diabetes and peripheral vascular disease REC: await ID coins as to whether he hneeds to saty inpt or be d/c and get ABX at outpt HD unit which I can arrange depending on the choice of ABx I f remains inpt then HD in am Procedures Date of Service Date of Service: 05/14/25
== END 2025-05-13 14:28 | disposition home or self-care (01) | DRG 637 ==
LOC: HO.ED 19:51 → HO.EDOVER 20:16 → HO.S3 05-13 10:04
PROVIDERS: Registered Nurse Emergency; Admitting Provider Hospitalist; Emergency Provider Emergency Medicine; PCP Internal Medicine; Visit Provider Internal Medicine
DX: E11.69 Type 2 diabetes mellitus with other specified complication (principal); N18.6 End stage renal disease; I13.2 Hypertensive heart and chronic kidney disease with heart failure and with stage 5 chronic kidney disease, or end stage renal disease; I50.22 Chronic systolic (congestive) heart failure; M86.172 Other acute osteomyelitis, left ankle and foot; Z16.24 Resistance to multiple antibiotics; E11.51 Type 2 diabetes mellitus with diabetic peripheral angiopathy without gangrene; N40.0 Benign prostatic hyperplasia without lower urinary tract symptoms; E11.22 Type 2 diabetes mellitus with diabetic chronic kidney disease; Z99.2 Dependence on renal dialysis; B95.7 Other staphylococcus as the cause of diseases classified elsewhere; B96.89 Other specified bacterial agents as the cause of diseases classified elsewhere; I25.10 Atherosclerotic heart disease of native coronary artery without angina pectoris; Z79.82 Long term (current) use of aspirin; Z79.899 Other long term (current) drug therapy
CPT/HCPCS: 36415; 73630; 80048; 80053; 82947; 83605; 85025; 85652; 86140; 87040; 99285; J1650; J3374

== ENCOUNTER → 2025-05-12 15:11 | Outpatient (BNV) | payer MEDICARE, SELFPAY | PROVIDERS: PCP Internal Medicine; Visit Provider Radiology Diagnostic Radiology | DX: M19.072 Primary osteoarthritis, left ankle and foot (principal); I70.202 Unspecified atherosclerosis of native arteries of extremities, left leg | CPT/HCPCS: 73630 ==

== ENCOUNTER → 2025-05-12 19:57 | Outpatient (BNV) | payer MEDICARE, SELFPAY | PROVIDERS: Admitting Provider Hospitalist; Emergency Provider Emergency Medicine; PCP Internal Medicine; Visit Provider Internal Medicine | DX: M86.9 Osteomyelitis, unspecified (principal) | CPT/HCPCS: 99223; 99239; 99499 ==